=== PATIENT | male | born 1950 | race Caucasian/White ===

== ENCOUNTER 2023-05-22 17:22 | Inpatient (IN) ==
[2023-05-22 18:11] LABS: Basophils # (auto) 0.03 K/uL (0.00-0.20); Basophils % (auto) 0.5 %; Eosinophils # (auto) 0.05 K/uL (0.00-0.50); Eosinophils % (auto) 0.9 %; Hematocrit (blood only) 38.3 % (42.0-52.0); Hemoglobin 13.3 g/dl (14.0-18.0); Immature Granulocytes # (auto) 0.02 K/uL (0.01-0.20); Immature Granulocytes % (auto) 0.4 %; Lymphocytes # (auto) 0.88 K/uL (1.20-3.40); Lymphocytes % (auto) 15.7 %; Mean Corpuscular Hemoglobin 32.4 pg (25.0-34.0); Mean Corpuscular Hgb Conc 34.7 g/dL (32.0-36.0); Mean Corpuscular Volume 93.4 fL (80.0-100.0); Mean Platelet Volume 10.9 fL (9.4-12.4); Monocytes # (auto) 0.51 K/uL (0.11-0.59); Monocytes % (auto) 9.1 %; Neutrophils # (auto) 4.12 K/uL (1.40-6.50); Neutrophils % (auto) 73.4 %; Platelet Count 185 K/uL (130-400); RDW Coefficient of Variation 12.6 % (11.5-14.5); RDW Standard Deviation 43.3 fL (36.4-46.3); White Blood Count 5.61 K/ul (4.8-10.8)
--- NOTE | 2023-05-22 18:25 | Emergency Department Note ---
Impression & Plan Falls, Weakness, Hallucination, visual, Parkinson's disease, CVA (cerebral vascular accident) ED Provider Note Provider: Tacho Wolf MD DATE OF SERVICE: 05/22/2023 CHIEF COMPLAINT: Weakness and difficulty walking HISTORY OF PRESENT ILLNESS: Patient is a 73-year-old gentleman history of hy perlipidemia, hypertension, Parkinson disease presenting complaining of generalized weakness and difficulty with ambulating. States has had some falls recently and has been having ongoing issues with walking over the past month or 2. States over the last month or 2 is also been having some visual hallucinations of his dogs and animals. Resides at [facility]. Has had multiple falls over the past several weeks. Did fall getting off the train in [place] by his report on Saturday and hit his head but was able to get up and lose consciousness. Denies headache. Denies feeling warm or dizzy or having palpitations. Unable to clearly explain how all his falls happen. Evidently had 1 today at one of the group events at [facility] they sent here for evaluation. Denies hitting his head today. Denies significant pain in the upper extremities or the right leg. Reports a little bit of redness and warmth just proximal to the left knee on the thigh region. He is able to walk however. Denies chest pain, shortness of breath, abdominal pain, nausea or vomiting. States he is sleeping appropriately. States he has not talked with his doctor or the staff about issues until today. Family evidently brought him back from the train station on Saturday to [facility]. PAST MEDICAL HISTORY: As noted above MEDICATIONS: Reviewed home medications SOCIAL HISTORY: Resides at [facility] PHYSICAL EXAM: GENERAL: alert and oriented in no acute distress in wheelchair Head: normocephalic and atraumatic without visible or appreciable wound or swelling. EYES: No injection, discharge or icterus. NECK: Trachea midline. Supple no midline cervical tenderness ENT: Mucous membranes pink and moist. LUNGS: Airway patent. No retractions. Breath sounds clear with good air entry bilaterally. HEART: Regular rate and rhythm. No chest wall tenderness ABDOMEN: Soft and non-tender, without guarding or rebound. No bilateral flank tenderness. SKIN: Acyanotic, warm, dry, without rashes EXTREMITIES: Without swelling, tenderness or deformity. In particular no tenderness of the left thigh or redness on exam with Marcus nurse treating inspector assisting. NEUROLOGICAL: No focal deficits. No aphasia. No facial droop or slurred speech. Normal strength and tone in the extremities. Sensation to gross touch normal. EK beats per minute. Normal sinus rhythm. PVC noted. No acute ST segment elevation or depression with QTc 446 CONTINUOUS CARDIAC MONITORING: was ordered and showed a heart rate of 80s bpm in normal sinus rhythm GCS 15. 1 view chest x-ray by my interpretation: No evidence of pneumonia or pneumothorax. No cardiomegaly. No free air under the diaphragm. 2 view left femur x-ray per my interpretation: No evidence of fracture or dislocation noted. Patient's laboratory studies and imaging reviewed. Differential includes Infection, dehydration, metabolic abnormality, hypo/hyperglycemia, electrolyte disturbance, anemia, hypoxia, cardiac sources, intracerebral event, toxicologic, neurologic, as well as other pathologies. IMPRESSION/MEDICAL DECISION MAKING: Patient fell struck his head the other day ago. Not on anticoagulants. We will complete a head CT given his complaints and reports his hallucinations. Does not seem to have significant focal deficit does have unfortunate underlying history of Parkinson disease. The somewhat subacute to more chronic nature of his visual hallucinations that are fairly formed with the falls may unfortun ately be a sequelae of his underlying Parkinson's disease. No fevers or URI symptoms reported. Afebrile here. No significant stigmata of trauma on physical exam. Did obtain x-ray of the chest as well as the left thigh as he has a little bit of discomfort here. Is ambulatory. Basic blood work obtained. EKG without evidence of STEMI or acute ischemic changes. No significant leukocytosis and no severe anemia noted. No significant electrolyte abnormalities or signs of renal dysfunction on blood work. Negative COVID testing. Normal troponin and again EKG reassuring and I doubt this is primarily cardiac in nature. No significant focal neurological deficits that he does not appear meningitic and I doubt severe with [employer] infection. Seems a bit more nonfocal on exam and lower suspicion for acute CVA. TSH normal and negative COVID here. X-rays appear reassuring. CT of the head does show what appears to be an old lacunar infarct in the right basal ganglia with chronic small vessel disease. No acute infarct or hemorrhage is noted by the radiology report but again this old infarct. Discussed with the patient. He denies any history of known stroke. Does take a baby aspirin. Given that his symptoms have evolved over the past month or 2 the stroke may explain some of the increased weakness possibly hallucinations but again may also be overlapping with his Parkinson disease. Given this new finding however discussed with him staying for further observation evaluation by the hospitalist team and neurology and the patient was in agreement. Hospitalist contacted DIAGNOSIS: Weakness, falls, CVA, visual hallucinations DISPOSITION: Hospitalist will evaluate Patient was agreeable with this plan. Past Med/Surg History Social History Smoking Status: Unknown if ever smoked Preferred Language: Cuban Feels Safe at Home: Yes Allergies Allergies Allergy/AdvReac Type Severity Reaction Status Date / Time No Known Allergies Allergy Verified 05/22/23 22:09 Home Meds Home Medications Medication Instructions Recorded Confirmed aspirin 81 mg tablet,delayed 81 mg PO DAILY 05/22/23 05/22/23 release carbidopa 25 mg-levodopa 100 mg 1 tab PO QID 05/22/23 05/22/23 tablet cyanocobalamin (vitamin B-12) 1,000 mcg IM QAM 05/22/23 05/22/23 1,000 mcg/mL injection solution duloxetine 30 mg capsule,delayed 30 mg PO QAM 05/22/23 05/22/23 release meclizine 25 mg chewable tablet 25 mg PO BID PRN Dizziness 05/22/23 05/22/23 polyethylene glycol 3350 17 gram 17 g PO QAM 05/22/23 05/22/23 oral powder packet (Miralax) pravastatin 20 mg tablet 20 mg PO QPM 05/22/23 05/22/23 tamsulosin 0.4 mg capsule 0.4 mg PO BID 05/22/23 05/22/23 Results & Data (ED) Vital Signs Vital Signs - 24 hr 05/22/23 17:34 05/22/23 21:28 05/22/23 21:50 Temperature 36.2 C L Temperature Source Temporal Artery Scan Pulse Rate 89 82 82 Respiratory Rate 19 19 Respiratory Effort / Characteristics Non-Labored Spontaneous Respiratory Depth Normal Blood Pressure 132/78 168/101 H Blood Pressure Mean 96 123 Pulse Oximetry 98 98 Oxygen Delivery Method Room Air Room Air Sepsis Recent Fever Within 48 Hours No Sepsis New/Unexplained Change in Mental Status N/A Sepsis Action Taken by Nursing No Action Required 05/22/23 22:20 05/22/23 23:00 Temperature Temperature Source Pulse Rate 71 71 Respiratory Rate 14 24 Respiratory Effort / Characteristics Respiratory Depth Blood Pressure 164/94 H 151/94 H Blood Pressure Mean 117 113 Pulse Oximetry 99 98 Oxygen Delivery Method Room Air Sepsis Recent Fever Within 48 Hours Sepsis New/Unexplained Change in Mental Status Sepsis Action Taken by Nursing Laboratory Data 05/22/23 17:50 05/22/23 17:50 Lab Results 05/22/23 05/22/23 05/22/23 Range/Units 17:50 17:50 17:50 WBC 5.61 (4.8-10.8) K/ul RBC 4.10 L (4.70-6.10) M/uL Hgb 13.3 L (14.0-18.0) g/dl Hct 38.3 L (42.0-52.0) % MCV 93.4 (80.0-100.0) fL MCH 32.4 (25.0-34.0) pg MCHC 34.7 (32.0-36.0) g/dL RDW Std Deviation 43.3 (36.4-46.3) fL RDW Coeff of Maria Isabel 12.6 (11.5-14.5) % Plt Count 185 (130-400) K/uL MPV 10.9 (9.4-12.4) fL Immature Gran % (Auto) 0.4 % Neut % (Auto) 73.4 % Lymph % (Auto) 15.7 % [place] % (Auto) 9.1 % Eos % (Auto) 0.9 % Baso % (Auto) 0.5 % Neut # (Auto) 4.12 (1.40-6.50) K/uL Lymph # (Auto) 0.88 L (1.20-3.40) K/uL [place] # (Auto) 0.51 (0.11-0.59) K/uL Eos # (Auto) 0.05 (0.00-0.50) K/uL Baso # (Auto) 0.03 (0.00-0.20) K/uL Immature Gran # (Auto) 0.02 (0.01-0.20) K/uL PT 11.6 (9.0-12.0) Seconds INR 1.1 (0.9-1.1) Sodium 143 (136-145) mmol/L Potassium 4.1 (3.5-5.1) mmol/L Chloride 109 H (98-107) mmol/L Carbon Dioxide 30 (21-32) mmol/L Anion Gap 4 (3-11) BUN 23 (6-23) mg/dl Creatinine 1.03 (0.6-1.4) mg/dl Est Cr Clr Drug Dosing Not Reportable Est GFR ( Amer) 82.0 ml/min Est GFR (Non-Af Amer) 70.7 ml/min BUN/Creatinine Ratio 22.3 H (10-20) Glucose 109 H (70-99(Fasting)) mg/dl Calcium 9.4 (8.6-10.3) mg/dl Iron 60 (35-175) mcg/dl Transferrin 206 (200-360) mg/dl Ferritin 205.9 (8-388) ng/ml Total Bilirubin 0.7 (0.2-1.0) mg/dl AST 15 (13-39) U/L ALT 3 L (7-52) U/L Alkaline Phosphatase 80 (34-104) U/L Troponin I High Sens 4.5 (0-20) pg/ml Total Protein 7.2 (6.0-8.3) gm/dl Albumin 4.3 (3.4-5.0) gm/dl Globulin 2.9 (2.5-4.0) gm/dl Albumin/Globulin Ratio 1.5 (0.9-2) Vitamin B12 (180-914) pg/ml Folate (>5.38) ng/ml TSH 1.705 (0.300-4.500) uIu/ml SARS-CoV-2, RNA, NAAT (NEGATIVE) 05/22/23 05/22/23 Range/Units 17:50 17:54 WBC (4.8-10.8) K/ul RBC (4.70-6.10) M/uL Hgb (14.0-18.0) g/dl Hct (42.0-52.0) % MCV (80.0-100.0) fL MCH (25.0-34.0) pg MCHC (32.0-36.0) g/dL RDW Std Deviation (36.4-46.3) fL RDW Coeff of Maria Isabel (11.5-14.5) % Plt Count (130-400) K/uL MPV (9.4-12.4) fL Immature Gran % (Auto) % Neut % (Auto) % Lymph % (Auto) % [place] % (Auto) % Eos % (Auto) % Baso % (Auto) % Neut # (Auto) (1.40-6.50) K/uL Lymph # (Auto) (1.20-3.40) K/uL [place] # (Auto) (0.11-0.59) K/uL Eos # (Auto) (0.00-0.50) K/uL Baso # (Auto) (0.00-0.20) K/uL Immature Gran # (Auto) (0.01-0.20) K/uL PT (9.0-12.0) Seconds INR (0.9-1.1) Sodium (136-145) mmol/L Potassium (3.5-5.1) mmol/L Chloride (98-107) mmol/L Carbon Dioxide (21-32) mmol/L Anion Gap (3-11) BUN (6-23) mg/dl Creatinine (0.6-1.4) mg/dl Est Cr Clr Drug Dosing Est GFR ( Amer) ml/min Est GFR (Non-Af Amer) ml/min BUN/Creatinine Ratio (10-20) Glucose (70-99(Fasting)) mg/dl Calcium (8.6-10.3) mg/dl Iron (35-175) mcg/dl Transferrin (200-360) mg/dl Ferritin (8-388) ng/ml Total Bilirubin (0.2-1.0) mg/dl AST (13-39) U/L ALT (7-52) U/L Alkaline Phosphatase (34-104) U/L Troponin I High Sens (0-20) pg/ml Total Protein (6.0-8.3) gm/dl Albumin (3.4-5.0) gm/dl Globulin (2.5-4.0) gm/dl Albumin/Globulin Ratio (0.9-2) Vitamin B12 799 (180-914) pg/ml Folate 15.74 (>5.38) ng/ml TSH (0.300-4.500) uIu/ml SARS-CoV-2, RNA, NAAT NEGATIVE (NEGATIVE) Administered Medications Sodium Chloride (1/2 Nss) 1,000 mls @ 60 mls/hr IV .[id number] ONE Stop: 05/23/23 14:24 Last Admin: 05/22/23 22:20 Dose: 60 mls/hr Documented By: ADAL Discontinued Medications Miscellaneous Information (Patient's Allergy Info Needs Entered) 1 each N/A Q30M SOY Stop: 06/21/23 21:59 Last Admin: 05/22/23 22:00 Dose: Not Given Documented By: ADAL Imaging Data Radiologist's Impression: Head CT 05/22/23 17:38 Exam(s): CT HEAD Without Contrast EXAM: CT Head Without Intravenous Contrast CLINICAL HISTORY: Reason for exam: fall/weakness. TECHNIQUE: Axial computed tomography images of the head/brain without intravenous contrast. CTDI is 39.1 mGy and DLP is 625.8 mGy-cm. Automated exposure control was utilized for the study. A dose lowering technique was utilized adhering to the principles of ALARA. COMPARISON: No relevant prior studies available. FINDINGS: Brain: There is a 7 mm old lacunar infarct in the right basal ganglia. There is mild atrophy and periventricular white matter low density consistent with chronic small vessel disease and/or senescent changes. No acute large vessel infarct or intracranial hemorrhage is seen. Ventricles: Unremarkable. No ventriculomegaly. Bones/joints: Unremarkable. No acute fracture. Soft tissues: Unremarkable. Sinuses: Unremarkable as visualized. No acute sinusitis. Mastoid air cells: Unremarkable as visualized. No mastoid effusion. IMPRESSION: There is a 7 mm old lacunar infarct in the right basal ganglia. There is mild atrophy and periventricular white matter low density consistent with chronic small vessel disease and/or senescent changes. No acute large vessel infarct or intracranial hemorrhage is seen. Electronically signed by: Tacho Rodriguez MD 05/22/23 19:57 PM Femur X-Ray 05/22/23 18:38 LEFT FEMUR 3 VIEWS CLINICAL HISTORY: Fall with left leg pain. FINDINGS: AP, frog-leg, and crosstable lateral views of the left femur are obtained. No prior studies are available for comparison at the time of dictation. The skeletal structures are osteopenic. There is no radiographic evidence of left femoral fracture. The visualized left hemipelvis appears intact. The hip and knee joints appear maintained. The overlying soft tissues are within normal limits. There is atherosclerotic calcification of the femoral artery. IMPRESSION: There is no radiographic evidence of left femoral fracture. Electronically signed by: Jeffrey Hill M.D. 05/22/2023 9:42 PM Discharge Plan Visit Data Chief Complaint: Weakness Stated Complaint: DIFFICULTY AMBULATING ED Provider: Tacho Wolf Discharge Problem: Falls, Weakness, Hallucination, visual, Parkinson's disease, CVA (cerebral vascular accident) Patient Disposition: Being Evaluated by Hospitalist Discharge Instructions Interventions: ED Discharge Assessment Last Done: 05/23/23 00:48
[2023-05-22 18:26] LABS: Alanine Aminotransferase 3 U/L (7-52); Albumin Globulin Ratio 1.5 (0.9-2); Albumin Level 4.3 gm/dl (3.4-5.0); Alkaline Phosphatase 80 U/L (34-104); Anion Gap 4 (3-11); Aspartate Aminotransferase 15 U/L (13-39); BUN Creatinine Ratio 22.3 (10-20); Bilirubin,Total 0.7 mg/dl (0.2-1.0); Blood Urea Nitrogen 23 mg/dl (6-23); Calcium 9.4 mg/dl (8.6-10.3); Carbon Dioxide 30 mmol/L (21-32); Chloride 109 mmol/L (98-107); Est GFR (Non-African American) 70.7 ml/min; Globulin 2.9 gm/dl (2.5-4.0); Glucose 109 mg/dl (70-99(Fasting)); Potassium 4.1 mmol/L (3.5-5.1); Sodium 143 mmol/L (136-145); Total Protein 7.2 gm/dl (6.0-8.3)
[2023-05-22 18:31] LABS: Troponin I High Sensitivity 4.5 pg/ml (0-20)
[2023-05-22 18:35] LABS: INR 1.1 (0.9-1.1); Prothrombin Time 11.6 Seconds (9.0-12.0)
[2023-05-22 18:41] LABS: Thyroid Stimulating Hormone 1.705 uIu/ml (0.300-4.500)
--- NOTE | 2023-05-22 19:58 | CT Scan Report ---
Exam(s): CT HEAD Without Contrast EXAM: CT Head Without Intravenous Contrast CLINICAL HISTORY: Reason for exam: fall/weakness. TECHNIQUE: Axial computed tomography images of the head/brain without intravenous contrast. CTDI is 39.1 mGy and DLP is 625.8 mGy-cm. Automated exposure control was utilized for the study. A dose lowering technique was utilized adhering to the principles of ALARA. COMPARISON: No relevant prior studies available. FINDINGS: Brain: There is a 7 mm old lacunar infarct in the right basal ganglia. There is mild atrophy and periventricular white matter low density consistent with chronic small vessel disease and/or senescent changes. No acute large vessel infarct or intracranial hemorrhage is seen. Ventricles: Unremarkable. No ventriculomegaly. Bones/joints: Unremarkable. No acute fracture. Soft tissues: Unremarkable. Sinuses: Unremarkable as visualized. No acute sinusitis. Mastoid air cells: Unremarkable as visualized. No mastoid effusion. IMPRESSION: There is a 7 mm old lacunar infarct in the right basal ganglia. There is mild atrophy and periventricular white matter low density consistent with chronic small vessel disease and/or senescent changes. No acute large vessel infarct or intracranial hemorrhage is seen. Electronically signed by: Tacho Rodriguez MD 05/22/23 19:57 PM
[2023-05-22] MEDS ORDERED: SODIUM CHLORIDE 0.45 % 1,000 ML IV ONE (21:45)
--- NOTE | 2023-05-22 21:45 | XRay Report ---
LEFT FEMUR 3 VIEWS CLINICAL HISTORY: Fall with left leg pain. FINDINGS: AP, frog-leg, and crosstable lateral views of the left femur are obtained. No prior studies are available for comparison at the time of dictation. The skeletal structures are osteopenic. There is no radiographic evidence of left femoral fracture. The visualized left hemipelvis appears intact. The hip and knee joints appear maintained. The overlying soft tissues are within normal limits. Ther e is atherosclerotic calcification of the femoral artery. IMPRESSION: There is no radiographic evidence of left femoral fracture. Electronically signed by: Jeffrey Hill M.D. 05/22/2023 9:42 PM
[2023-05-22] MEDS ORDERED: Patient's ALLERGY Info needs ENTERED SCH (22:00)
--- NOTE | 2023-05-22 23:08 | History & Physical Report ---
Date of Service May 22, 2023 Assessment & Plan (1) Ambulatory dysfunction: Plan: Rule out new CVA hx CVA on previous imaging (Patient/family unaware of previous diagnosis.) New onset anemia Hematochezia on FOBT hx colonic polyps/diverticulosis/hemorrhoids from 2022 colonoscopy Patient without abdominal pain complaints. hypertension, slightly elevated hyperlipidemia, on statin Rx hx Parkinson's disease with cognitive impairment sarcoidosis BPH, on Flomax past tobacco abuse Medical telemetry Neurochecks MRI/MRA brain Additional stroke work-up pending MRI results Hold aspirin for now given LGIB Inpatient GI consult if with progression Anemia work-up, transfuse PRBC if hemoglobin less than 8 and or for symptomatic anemia PT OT eval DVT prophylaxis. SCDs RE LGIB Full code as per son/POA, Mr. Cresencio Alicea. He requests updates from providers through [id number]. Text document was generated using [employer] voice recognition software. It may contain grammatical or spelling errors. Kindly contact undersigned for clarification of any documentation item in question. History of Present Illness Chief Complaint: Weakness, difficulty in ambulation as per records, hallucinations. Primary Care Provider: [facility] History obtained from patient, family, and records. Limited history from patient secondary to confusion. Medical history significant for CVA as per records, hypertension, hyperlipidemia, Parkinson's disease, cognitive impairment, sarcoidosis, BPH, colonic polyps/diverticulosis/hemorrhoids, past tobacco abuse. Patient noted to have generalized weakness and difficulty ambulation at [facility]. Patient with visual hallucinations as per son. Patient denies headache, chest pain, abdominal pain, black/bloody stools. Patient brought to the ER for evaluation. Medical History as above Surgical History : Cataract surgeries, right foot surgery, tonsillectomy/adenoidectomy Family History : DM, dementia Personal/Social history : Past tobacco abuse, no EtOH intake, [facility] resident Allergies Allergy/AdvReac Type Severity Reaction Status Date / Time No Known Allergies Allergy Verified 05/22/23 22:09 Home Medications Medication Instructions Recorded Confirmed Type aspirin 81 mg tablet,delayed 81 mg PO DAILY 05/22/23 05/22/23 History release carbidopa 25 mg-levodopa 100 mg 1 tab PO QID 05/22/23 05/22/23 History tablet cyanocobalamin (vitamin B-12) 1,000 mcg IM QAM 05/22/23 05/22/23 History 1,000 mcg/mL injection solution duloxetine 30 mg capsule,delayed 30 mg PO QAM 05/22/23 05/22/23 History release meclizine 25 mg chewable tablet 25 mg PO BID PRN Dizziness 05/22/23 05/22/23 History polyethylene glycol 3350 17 gram 17 g PO QAM 05/22/23 05/22/23 History oral powder packet (Miralax) pravastatin 20 mg tablet 20 mg PO QPM 05/22/23 05/22/23 History tamsulosin 0.4 mg capsule 0.4 mg PO BID 05/22/23 05/22/23 History Past Med/Surg History Social History Smoking Status: Former smoker Hx Alcohol Use: No Hx Substance Use: No Preferred Language: Bulgarian Communication Ability: Effective Digital Marketing Associate Required: No Beliefs That Will Affect Care: None Current Living Situation: Other Current Living Situation Comment: Independent Living Feels Safe at Home: Yes Safety Concerns: Feels Safe At This Time Assistive Devices: Cane and Walker Review of Systems Review of Systems: Could not be reliably obtained secondary to cognitive impairment Physical Exam Physical Exam: GENERAL: Comfortable, masklike facies, slightly hard of hearing, no respiratory distress SKIN: Pallor, warm HEENT: Pale palpebral conjunctivae, no ptosis, dry buccal mucosa NECK : Supple, no tenderness CHEST : CTA, no tenderness HEART : RRR, no obvious murmurs ABDOMEN: Some distention, nontender RECTAL : Intact sphincter, blood tinged stool (FOBT positive) EXTREMITIES : No LE swelling/tenderness, no other conspicuous deformities noted NEUROLOGIC : Oriented to place and day, no facial asymmetry, slightly hard of hearing, intention tremors, gait and stance not assessed Results & Data Results & Data Vital Signs (Past 12 Hours) Vital Signs Temp Pulse Resp BP Pulse Ox O2 Del Method 05/22/23 22:20 71 14 164/94 H 99 Room Air 05/22/23 21:50 82 19 168/101 H 98 Room Air 05/22/23 21:28 82 05/22/23 17:34 36.2 C L 89 19 132/78 98 Room Air Laboratory Results Laboratory Results WBC 5.61 K/ul (4.8-10.8) 05/22/23 17:50 RBC 4.10 M/uL (4.70-6.10) L 05/22/23 17:50 Hgb 13.3 g/dl (14.0-18.0) L 05/22/23 17:50 Hct 38.3 % (42.0-52.0) L 05/22/23 17:50 MCV 93.4 fL (80.0-100.0) 05/22/23 17:50 MCH 32.4 pg (25.0-34.0) 05/22/23 17:50 MCHC 34.7 g/dL (32.0-36.0) 05/22/23 17:50 RDW Std Deviation 43.3 fL (36.4-46.3) 05/22/23 17:50 RDW Coeff of Maria Isabel 12.6 % (11.5-14.5) 05/22/23 17:50 Plt Count 185 K/uL (130-400) 05/22/23 17:50 MPV 10.9 fL (9.4-12.4) 05/22/23 17:50 Immature Gran % (Auto) 0.4 % 05/22/23 17:50 Neut % (Auto) 73.4 % 05/22/23 17:50 Lymph % (Auto) 15.7 % 05/22/23 17:50 Cecil % (Auto) 9.1 % 05/22/23 17:50 Eos % (Auto) 0.9 % 05/22/23 17:50 Baso % (Auto) 0.5 % 05/22/23 17:50 Neut # (Auto) 4.12 K/uL (1.40-6.50) 05/22/23 17:50 Lymph # (Auto) 0.88 K/uL (1.20-3.40) L 05/22/23 17:50 Cecil # (Auto) 0.51 K/uL (0.11-0.59) 05/22/23 17:50 Eos # (Auto) 0.05 K/uL (0.00-0.50) 05/22/23 17:50 Baso # (Auto) 0.03 K/uL (0.00-0.20) 05/22/23 17:50 Immature Gran # (Auto) 0.02 K/uL (0.01-0.20) 05/22/23 17:50 PT 11.6 Seconds (9.0-12.0) 05/22/23 17:50 INR 1.1 (0.9-1.1) 05/22/23 17:50 Sodium 143 mmol/L (136-145) 05/22/23 17:50 Potassium 4.1 mmol/L (3.5-5.1) 05/22/23 17:50 Chloride 109 mmol/L (98-107) H 05/22/23 17:50 Carbon Dioxide 30 mmol/L (21-32) 05/22/23 17:50 Anion Gap 4 (3-11) 05/22/23 17:50 BUN 23 mg/dl (6-23) 05/22/23 17:50 Creatinine 1.03 mg/dl (0.6-1.4) 05/22/23 17:50 Est Cr Clr Drug Dosing Not Reportable 05/22/23 17:50 Est GFR ( Amer) 82.0 ml/min 05/22/23 17:50 Est GFR (Non-Af Amer) 70.7 ml/min 05/22/23 17:50 BUN/Creatinine Ratio 22.3 (10-20) H 05/22/23 17:50 Glucose 109 mg/dl (70-99(Fasting)) H 05/22/23 17:50 Calcium 9.4 mg/dl (8.6-10.3) 05/22/23 17:50 Total Bilirubin 0.7 mg/dl (0.2-1.0) 05/22/23 17:50 AST 15 U/L (13-39) 05/22/23 17:50 ALT 3 U/L (7-52) L 05/22/23 17:50 Alkaline Phosphatase 80 U/L (34-104) 05/22/23 17:50 Troponin I High Sens 4.5 pg/ml (0-20) 05/22/23 17:50 Total Protein 7.2 gm/dl (6.0-8.3) 05/22/23 17:50 Albumin 4.3 gm/dl (3.4-5.0) 05/22/23 17:50 Globulin 2.9 gm/dl (2.5-4.0) 05/22/23 17:50 Albumin/Globulin Ratio 1.5 (0.9-2) 05/22/23 17:50 TSH 1.705 uIu/ml (0.300-4.500) 05/22/23 17:50 SARS-CoV-2, RNA, NAAT NEGATIVE (NEGATIVE) 05/22/23 17:[address] 05/22/23 17:38 Exam(s): CT HEAD Without Contrast EXAM: CT Head Without Intravenous Contrast CLINICAL HISTORY: Reason for exam: fall/weakness. TECHNIQUE: Axial computed tomography images of the head/brain without intravenous contrast. CTDI is 39.1 mGy and DLP is 625.8 mGy-cm. Automated exposure control was utilized for the study. A dose lowering technique was utilized adhering to the principles of ALARA. COMPARISON: No relevant prior studies available. FINDINGS: Brain: There is a 7 mm old lacunar infarct in the right basal ganglia. There is mild atrophy and periventricular white matter low density consistent with chronic small vessel disease and/or senescent changes. No acute large vessel infarct or intracranial hemorrhage is seen. Ventricles: Unremarkable. No ventriculomegaly. Bones/joints: Unremarkable. No acute fracture. Soft tissues: Unremarkable. Sinuses: Unremarkable as visualized. No acute sinusitis. Mastoid air cells: Unremarkable as visualized. No mastoid effusion. IMPRESSION: There is a 7 mm old lacunar infarct in the right basal ganglia. There is mild atrophy and periventricular white matter low density consistent with chronic small vessel disease and/or senescent changes. No acute large vessel infarct or intracranial hemorrhage is seen. Electronically signed by: Tacho Rodriguez MD 05/22/23 19:57 PM Femur X-Ray 05/22/23 18:38 LEFT FEMUR 3 VIEWS CLINICAL HISTORY: Fall with left leg pain. FINDINGS: AP, frog-leg, and crosstable lateral views of the left femur are obtained. No prior studies are available for comparison at the time of di ctation. The skeletal structures are osteopenic. There is no radiographic evidence of left femoral fracture. The visualized left hemipelvis appears intact. The hip and knee joints appear maintained. The overlying soft tissues are within normal limits. There is atherosclerotic calcification of the femoral artery. IMPRESSION: There is no radiographic evidence of left femoral fracture. Electronically signed by: Jeffrey Hill M.D. 05/22/2023 9:42 PM Diagnostic Findings EKG as per my interpretation : Rate 85, NSR, normal axis, septal infarct, T wave abnormalities lateral leads
[2023-05-22 23:38] LABS: Iron 60 mcg/dl (35-175); Transferrin 206 mg/dl (200-360)
[2023-05-22 23:49] LABS: Hematocrit (blood only) 37.2 % (42.0-52.0); Hemoglobin 12.6 g/dl (14.0-18.0); Reticulocyte % 0.8 % (0.5-2.0); Reticulocytes # 0.03 10^6/uL (0.02-0.10)
[2023-05-22 23:58] LABS: Ferritin 205.9 ng/ml (8-388)
[2023-05-23 00:48] LABS: Folate (Folic Acid),Ser orPlas 15.74 ng/ml (>5.38)
[2023-05-23] MEDS ORDERED: ACETAMINOPHEN 325 MG TAB PO PRN (00:49)
[2023-05-23] MEDS ORDERED: PHARMACIST DISCHARGE MED REC CONSULT PRN (00:49)
[2023-05-23 01:16] LABS: Appearance Urine Clear (Clear); Bilirubin Urine Negative (Negative); Blood Urine Negative (Negative); Color Urine Yellow; Glucose Urine UA Negative (Negative); Ketones Urine Negative (Negative); Leukocyte Esterase Urine Negative (Negative); Nitrite Urine Negative (Negative); Protein Urine Negative (Negative); Specific Gravity Urine 1.017 (1.000-1.030); Urobilinogen Urine Negative (Negative); pH Urine 7.5 (4.5-7.5)
[2023-05-23 04:57] LABS: Basophils # (auto) 0.04 K/uL (0.00-0.20); Basophils % (auto) 0.8 %; Eosinophils # (auto) 0.14 K/uL (0.00-0.50); Eosinophils % (auto) 2.8 %; Hemoglobin 13.5 g/dl (14.0-18.0); Immature Granulocytes # (auto) 0.01 K/uL (0.01-0.20); Immature Granulocytes % (auto) 0.2 %; Lymphocytes # (auto) 1.28 K/uL (1.20-3.40); Lymphocytes % (auto) 25.9 %; Mean Corpuscular Hemoglobin 32.4 pg (25.0-34.0); Mean Corpuscular Hgb Conc 34.6 g/dL (32.0-36.0); Mean Corpuscular Volume 93.5 fL (80.0-100.0); Mean Platelet Volume 10.8 fL (9.4-12.4); Monocytes # (auto) 0.55 K/uL (0.11-0.59); Monocytes % (auto) 11.1 %; Neutrophils # (auto) 2.92 K/uL (1.40-6.50); Neutrophils % (auto) 59.2 %; Platelet Count 158 K/uL (130-400); RDW Coefficient of Variation 12.5 % (11.5-14.5); RDW Standard Deviation 43.2 fL (36.4-46.3); Red Blood Count 4.17 M/uL (4.70-6.10); White Blood Count 4.94 K/ul (4.8-10.8)
[2023-05-23 05:09] LABS: BUN Creatinine Ratio 21.8 (10-20); Calcium 8.8 mg/dl (8.6-10.3); Chol HDL Ratio 2.8 (0-5); Creatinine Clr Calc Pharmacy 78.5 ml/min; Est GFR (African American) 102.3 ml/min; Est GFR (Non-African American) 88.3 ml/min; Potassium 3.6 mmol/L (3.5-5.1)
--- NOTE | 2023-05-23 07:15 | Magnetic Resonance Report ---
Exam(s): MRI HEAD Without Contrast EXAM: MR Head Without Intravenous Contrast CLINICAL HISTORY: Reason for exam: weakness. TECHNIQUE: Magnetic resonance images of the head/brain without intravenous contrast in multiple planes. COMPARISON: CT from May 22, 2023 FINDINGS: Brain: Mild cerebral atrophy and periventricular white matter T2 hyperintensities consistent with chronic small vessel disease and/or senescent changes. There are several old lacunar infarcts in the basal ganglia measuring up to 6 mm on the right. No areas of diffusion restriction are seen to indicate acute stroke. No hemorrhage. Ventricles: Mildly prominent. No mass or hemorrhage. Bones/joints: Unremarkable. Sinuses: Unremarkable as visualized. No acute sinusitis. Mastoid air cells: Unremarkable as visualized. No mastoid effusion. Orbits: Unremarkable as visualized. IMPRESSION: Mild cerebral atrophy and periventricular white matter T2 hyperintensities consistent with chronic small vessel disease and/or senescent changes. There are several old lacunar infarcts in the basal ganglia measuring up to 6 mm on the right. No areas of diffusion restriction are seen to indicate acute stroke. Electronically signed by: Tacho Rodriguez MD 05/23/23 02:31 AM
--- NOTE | 2023-05-23 07:15 | Magnetic Resonance Report ---
Exam(s): MRA HEAD Without Contrast EXAM: MR Angiography Head Without Intravenous Contrast CLINICAL HISTORY: Reason for exam: weakness. TECHNIQUE: Magnetic resonance angiography images of the head without intravenous contrast. COMPARISON: CT head from May 22, 2023 FINDINGS: Right internal carotid artery: 20% stenosis of the distal right internal carotid artery. No aneurysm. Right anterior cerebral artery: Unremarkable. No occlusion or significant stenosis. No aneurysm. Right middle cerebral artery: Unremarkable. No occlusion or significant stenosis. No aneurysm. Right posterior cerebral artery: Normally anatomic variant of origin of the right posterior cerebral artery from the anterior circulation. The P1 segment is absent. Right vertebral artery: The distal right vertebral artery is small and terminates into the PICA. This is a normal variant. Left internal carotid artery: 40-50% stenosis of the cavernous portion of the distal left internal carotid artery. No aneurysm. Left anterior cerebral artery: Unremarkable. No occlusion or significant stenosis. No aneurysm. Left middle cerebral artery: Unremarkable. No occlusion or significant stenosis. No aneurysm. Left posterior cerebral artery: Unremarkable. No occlusion or significant stenosis. No aneurysm. Left vertebral artery: Unremarkable as visualized. Basilar artery: Unremarkable. No occlusion or significant stenosis. No aneurysm. IMPRESSION: No acute findings in the arteries of the head/brain. Electronically signed by: Tacho Rodriguez MD 05/23/23 02:20 AM
--- NOTE | 2023-05-23 07:26 | XRay Report ---
SINGLE VIEW CHEST CLINICAL HISTORY: Generalized weakness. Fall. FINDINGS: 2 AP, portable, upright chest radiographs are obtained. No prior studies are available for comparison at the time of dictation. The cardiomediastinal silhouette is unremarkable noting atherosc lerotic calcification of the thoracic aorta. Nonspecific interstitial thickening is likely chronic. N o airspace consolidation or large pleural effusion is identified. No pneumothorax is seen. The skelet al structures are osteopenic. The bony thorax is grossly intact. IMPRESSION: No acute cardiopulmonary abnormality. ACT 112: Negative or not required by law. Electronically signed by: Jeffrey Hill M.D. 05/23/2023 7:25 AM
[2023-05-23] MEDS ORDERED: PNEUMOCOCCAL VACCINE (PCV20) 20-VAL CONJ-DIP CRM/PF 0.5 ML SYR IM ONE (09:00)
[2023-05-23 09:24] LABS: Estimated Average Glucose 114 mg/dl; Hemoglobin A1C 5.6 % (4.5-5.6)
[2023-05-23] MEDS: CYANOCOBALAMIN 1000 MCG/ML VIAL IM SCH (10:36)
[2023-05-23] MEDS: DULoxetine HCL 30 MG CAP PO SCH (10:36)
[2023-05-23] MEDS: TAMSULOSIN HCL 0.4 MG CAP PO SCH ×2 (10:36→22:00)
[2023-05-23] MEDS: CARBIDOPA/LEVODOPA 25/100MG TAB PO SCH ×4 (10:36→22:00)
--- NOTE | 2023-05-23 12:01 | Electrocardiogram Report ---
Test Reason : Blood Pressure : / mmHG Vent. Rate : 084 BPM Atrial Rate : 084 BPM P-R Int : 146 ms QRS Dur : 072 ms QT Int : 378 ms P-R-T Axes : 062 035 061 degrees QTc Int : 446 ms Normal sinus rhythm with PVCs Abnormal ECG No previous ECGs available Confirmed by Yasmani Wei ([id number]) on 05/23/2023 12:00:46 PM Referred By: Candi Salcedo Confirmed By:Jose Wei
--- NOTE | 2023-05-23 15:47 | Hospitalist Progress Note ---
Date of Service May 23, 2023 Assessment & Plan (1) Ambulatory dysfunction: Plan: Ambulatory Dysfunction Stroke-like symptoms Rule out new CVA hx CVA on previous imaging-(Patient/family unaware of previous diagnosis.) head CT, brain MRI and MRA with no acute stroke, previous stroke in basal ganglia noted however Continue home pravastatin, holding home aspirin in setting of possible GI bleed PT/OT- recommending return to [facility] PCP follow up after d/c hx Parkinson's disease with cognitive impairment Acute Delirium Pt confused later during the day- states he feels like he is being held against his will Per nursing threatening to call the police Given a dose of zyprexa 5mg IM Continue home carbidopa-levodopa New onset anemia Hematochezia on FOBT Hgb currently stable at 13 hx colonic polyps/diverticulosis/hemorrhoids from 2022 colonoscopy Patient without abdominal pain complaints. Holding home aspirin Continue to monitor hgb HTN BP currently controlled HLD Continue home pravastatin as noted above Sarcoidosis Stable BPH on Flomax Diet: HH DVT prophylaxis: SCDs RE LGIB Full code as per son/POA, Mr. Cresencio Alicea. Dispo: return to [facility] Admission and Anticipated Discharge Date Admission Date: May 22, 2023 Subjective Pt seen multiple times during the day. Was calm and collected in the AM, discussed that he was not ready to be discharged, felt like he needed another day. Later advised by nursing that pt was confused, pulling out his IV. Per son present in the room, he owns. Son recommending that pt remain overnight as well. Review of Systems Review of Systems: All systems reviewed & are unremarkable except as noted in Subjective Physical Exam Physical Exam: General: Alert, oriented in the AM. No acute distress Skin: No noted rashes or bruises Psych: Appropriate mood and affect Neuro: difficulty with movements HEENT: NC/AT CV: RRR, Normal s1, s2. No murmurs appreciated Resp: Breath sounds clear bilaterally, no increased effort of breathing. Abdomen: Soft, nontender, nondistended. Extremities: No edema in lower extremities bilaterally. Results & Data Results & Data Vital Signs (Past 12 Hours) Vital Signs Temp Pulse Pulse Resp BP BP Pulse Ox 05/23/23 15:33 36.4 C L 86 18 138/81 98 05/23/23 15:00 88 05/23/23 11:41 36.3 C L 79 18 131/80 99 05/23/23 08:00 68 05/23/23 07:31 36.4 C L 77 20 151/80 H 98 05/23/23 05:44 36.3 C L 18 142/84 H 98 O2 Del Method 05/23/23 15:33 Room Air 05/23/23 15:00 05/23/23 11:41 Room Air 05/23/23 08:00 05/23/23 07:31 Room Air 05/23/23 05:44 Room Air
[2023-05-23] MEDS ORDERED: OLANZapine 10 MG/2.1 ML SDV IM STA (16:17)
[2023-05-23] MEDS: PRAVASTATIN SOD 20 MG TAB PO SCH (22:01)
[2023-05-24 05:03] LABS: Alanine Aminotransferase < 3 U/L (7-52); Albumin Globulin Ratio 1.4 (0.9-2); Albumin Level 3.9 gm/dl (3.4-5.0); Alkaline Phosphatase 72 U/L (34-104); Anion Gap 4 (3-11); Aspartate Aminotransferase 19 U/L (13-39); BUN Creatinine Ratio 19.1 (10-20); Bilirubin,Total 1.2 mg/dl (0.2-1.0); Blood Urea Nitrogen 17 mg/dl (6-23); Calcium 9.1 mg/dl (8.6-10.3); Carbon Dioxide 32 mmol/L (21-32); Chloride 106 mmol/L (98-107); Creatinine Clr Calc Pharmacy 69.4 ml/min; Est GFR (African American) 96.9 ml/min; Est GFR (Non-African American) 83.6 ml/min; Globulin 2.7 gm/dl (2.5-4.0); Glucose 90 mg/dl (70-99(Fasting)); Magnesium 2.4 mg/dl (1.7-2.4); Phosphorus 3.5 mg/dl (2.5-4.9); Potassium 3.6 mmol/L (3.5-5.1); Sodium 142 mmol/L (136-145); Total Protein 6.6 gm/dl (6.0-8.3)
[2023-05-24 05:05] LABS: Basophils # (auto) 0.04 K/uL (0.00-0.20); Basophils % (auto) 0.8 %; Eosinophils # (auto) 0.14 K/uL (0.00-0.50); Eosinophils % (auto) 2.9 %; Hematocrit (blood only) 39.2 % (42.0-52.0); Hemoglobin 13.3 g/dl (14.0-18.0); Immature Granulocytes # (auto) 0.01 K/uL (0.01-0.20); Immature Granulocytes % (auto) 0.2 %; Lymphocytes # (auto) 1.37 K/uL (1.20-3.40); Lymphocytes % (auto) 28.7 %; Mean Corpuscular Hgb Conc 33.9 g/dL (32.0-36.0); Mean Corpuscular Volume 94.2 fL (80.0-100.0); Mean Platelet Volume 10.9 fL (9.4-12.4); Monocytes # (auto) 0.51 K/uL (0.11-0.59); Monocytes % (auto) 10.7 %; Neutrophils # (auto) 2.71 K/uL (1.40-6.50); Neutrophils % (auto) 56.7 %; Platelet Count 164 K/uL (130-400); RDW Coefficient of Variation 12.6 % (11.5-14.5); RDW Standard Deviation 43.8 fL (36.4-46.3); Red Blood Count 4.16 M/uL (4.70-6.10); White Blood Count 4.78 K/ul (4.8-10.8)
[2023-05-24] MEDS: DULoxetine HCL 30 MG CAP PO SCH (09:41)
[2023-05-24] MEDS: CARBIDOPA/LEVODOPA 25/100MG TAB PO SCH ×4 (09:41→20:28)
[2023-05-24] MEDS: TAMSULOSIN HCL 0.4 MG CAP PO SCH ×2 (09:41→20:28)
[2023-05-24] MEDS: CYANOCOBALAMIN 1000 MCG/ML VIAL IM SCH (09:42)
--- NOTE | 2023-05-24 18:38 | Hospitalist Progress Note ---
Date of Service May 24, 2023 Assessment & Plan (1) Ambulatory dysfunction: Plan: Ambulatory Dysfunction Stroke-like symptoms Rule out new CVA hx CVA on previous imaging-(Patient/family unaware of previous diagnosis.) head CT, brain MRI and MRA with no acute stroke, previous stroke in basal ganglia noted however Continue home pravastatin, holding home aspirin in setting of possible GI bleed PT/OT- recommending return to [facility] PCP follow up after d/c hx Parkinson's disease with cognitive impairment Acute Delirium Pt confused the day prior- states he feels like he is being held against his will Per nursing threatening to call the police Received a one time dose of zyprexa 5mg IM on 05/23 Continue home carbidopa-levodopa New onset anemia Hematochezia on FOBT Hgb currently stable at 13 hx colonic polyps/diverticulosis/hemorrhoids from 2022 colonoscopy Patient without abdominal pain complaints. Holding home aspirin Continue to monitor hgb HTN BP currently controlled HLD Continue home pravastatin as noted above Sarcoidosis Stable BPH on Flomax Diet: HH DVT prophylaxis: SCDs RE LGIB Full code as per son/POA, Mr. Cresencio Alicea. Dispo: return to [facility] Admission and Anticipated Discharge Date Admission Date: May 22, 2023 Subjective Pt seen in the AM. AAOx3 with no signs of confusion at that time. Had received IM Zyprexa the night before. Denied acute concerns. Review of Systems Review of Systems: All systems reviewed & are unremarkable except as noted in Subjective Physical Exam Physical Exam: General: Alert, orientedx3. No acute distress Skin: No noted rashes or bruises Psych: Appropriate mood and affect Neuro: difficulty with movements HEENT: NC/AT CV: RRR, Normal s1, s2. No murmurs appreciated Resp: Breath sounds clear bilaterally, no increased effort of breathing. Abdomen: Soft, nontender, nondistended. Extremities: No edema in lower extremities bilaterally. Results & Data Results & Data Vital Signs (Past 12 Hours) Vital Signs Temp Pulse Pulse Resp BP Pulse Ox O2 Del Method 05/24/23 16:47 69 05/24/23 16:45 95 H 05/24/23 15:54 36.4 C L 77 18 110/70 98 Room Air 05/24/23 12:08 36.6 C 65 18 114/72 96 Room Air 05/24/23 11:30 Room Air 05/24/23 08:20 36.6 C 75 16 133/83 99 Room Air
[2023-05-24] MEDS: PRAVASTATIN SOD 20 MG TAB PO SCH (20:28)
[2023-05-25 05:25] LABS: Basophils # (auto) 0.02 K/uL (0.00-0.20); Basophils % (auto) 0.3 %; Eosinophils # (auto) 0.21 K/uL (0.00-0.50); Eosinophils % (auto) 3.1 %; Hematocrit (blood only) 38.3 % (42.0-52.0); Hemoglobin 13.1 g/dl (14.0-18.0); Immature Granulocytes # (auto) 0.02 K/uL (0.01-0.20); Immature Granulocytes % (auto) 0.3 %; Lymphocytes # (auto) 1.21 K/uL (1.20-3.40); Lymphocytes % (auto) 17.8 %; Mean Corpuscular Hemoglobin 32.3 pg (25.0-34.0); Mean Corpuscular Hgb Conc 34.2 g/dL (32.0-36.0); Mean Corpuscular Volume 94.6 fL (80.0-100.0); Mean Platelet Volume 10.9 fL (9.4-12.4); Monocytes % (auto) 8.8 %; Neutrophils # (auto) 4.75 K/uL (1.40-6.50); Neutrophils % (auto) 69.7 %; Platelet Count 171 K/uL (130-400); RDW Coefficient of Variation 12.7 % (11.5-14.5); RDW Standard Deviation 44.4 fL (36.4-46.3); Red Blood Count 4.05 M/uL (4.70-6.10); White Blood Count 6.81 K/ul (4.8-10.8)
[2023-05-25 05:39] LABS: Albumin Globulin Ratio 1.5 (0.9-2); Albumin Level 3.8 gm/dl (3.4-5.0); BUN Creatinine Ratio 23.4 (10-20); Bilirubin,Total 0.8 mg/dl (0.2-1.0); Calcium 8.8 mg/dl (8.6-10.3); Creatinine Clr Calc Pharmacy 65.7 ml/min; Est GFR (African American) 91.6 ml/min; Globulin 2.6 gm/dl (2.5-4.0); Magnesium 2.4 mg/dl (1.7-2.4); Phosphorus 3.5 mg/dl (2.5-4.9); Potassium 3.8 mmol/L (3.5-5.1); Total Protein 6.4 gm/dl (6.0-8.3)
[2023-05-25] MEDS: CARBIDOPA/LEVODOPA 25/100MG TAB PO SCH ×4 (08:51→19:49)
[2023-05-25] MEDS: DULoxetine HCL 30 MG CAP PO SCH (08:52)
[2023-05-25] MEDS: TAMSULOSIN HCL 0.4 MG CAP PO SCH ×2 (08:52→19:49)
[2023-05-25] MEDS: CYANOCOBALAMIN 1000 MCG/ML VIAL IM SCH (08:52)
--- NOTE | 2023-05-25 09:02 | Hospitalist Progress Note ---
Date of Service May 25, 2023 Assessment & Plan (1) Ambulatory dysfunction: Plan: Ambulatory Dysfunction Stroke-like symptoms Rule out new CVA hx CVA on previous imaging-(Patient/family unaware of previous diagnosis.) head CT, brain MRI and MRA with no acute stroke, previous stroke in basal ganglia noted however Continue home pravastatin, holding home aspirin in setting of possible GI bleed PT/OT- recommending return to [facility] PCP follow up after d/c hx Parkinson's disease with cognitive impairment Acute Delirium Pt confused the day prior- states he feels like he is being held against his will Per nursing threatening to call the police Received a one time dose of zyprexa 5mg IM on 05/23 Continue home carbidopa-levodopa New onset anemia Hematochezia on FOBT Hgb currently stable at 13 hx colonic polyps/diverticulosis/hemorrhoids from 2022 colonoscopy Patient without abdominal pain complaints. Holding home aspirin Continue to monitor hgb HTN BP currently controlled HLD Continue home pravastatin as noted above Sarcoidosis Stable BPH on Flomax Diet: HH DVT prophylaxis: previously on SCDs with concern for bleeding but hgb stable. Started on lovenox. Full code as per son/POA, Mr. Cresencio Alicea. Dispo: return to [facility] Admission and Anticipated Discharge Date Admission Date: May 22, 2023 Subjective Pt seen in the AM. AAOx3 with no signs of confusion at that time. States that he is doing well. Denied acute concerns. Review of Systems Review of Systems: All systems reviewed & are unremarkable except as noted in Subjective Physical Exam Physical Exam: General: Alert, orientedx3. No acute distress Skin: No noted rashes or bruises Psych: Appropriate mood and affect Neuro: difficulty with movements HEENT: NC/AT CV: RRR, Normal s1, s2. No murmurs appreciated Resp: Breath sounds clear bilaterally, no increased effort of breathing. Abdomen: Soft, nontender, nondistended. Extremities: No edema in lower extremities bilaterally. Results & Data Results & Data Vital Signs (Past 12 Hours) Vital Signs Temp Pulse Pulse Resp BP Pulse Ox O2 Del Method 05/25/23 08:40 36.0 C L 79 18 137/82 97 Room Air 05/25/23 07:09 76 05/25/23 05:26 36.5 C 76 18 140/78 99 Room Air 05/25/23 00:09 Room Air 05/25/23 00:00 05/24/23 22:05 69 05/24/23 22:03 36.9 C 67 16 122/74 98 Room Air O2 Del Method 05/25/23 08:40 05/25/23 07:09 05/25/23 05:26 05/25/23 00:09 05/25/23 00:00 Room Air 05/24/23 22:05 05/24/23 22:03
[2023-05-25] MEDS: PRAVASTATIN SOD 20 MG TAB PO SCH (19:49)
[2023-05-26] MEDS ORDERED: ENOXAPARIN INJ 40 MG/0.4 ML SYR SQ SCH (04:30)
[2023-05-26 05:24] LABS: Albumin Globulin Ratio 1.4 (0.9-2); Albumin Level 3.9 gm/dl (3.4-5.0); BUN Creatinine Ratio 24.4 (10-20); Basophils # (auto) 0.04 K/uL (0.00-0.20); Basophils % (auto) 0.6 %; Bilirubin,Total 0.9 mg/dl (0.2-1.0); Calcium 8.7 mg/dl (8.6-10.3); Creatinine Clr Calc Pharmacy 79.2 ml/min; Eosinophils # (auto) 0.21 K/uL (0.00-0.50); Eosinophils % (auto) 3.1 %; Est GFR (African American) 102.3 ml/min; Est GFR (Non-African American) 88.3 ml/min; Globulin 2.8 gm/dl (2.5-4.0); Hematocrit (blood only) 40.5 % (42.0-52.0); Hemoglobin 13.8 g/dl (14.0-18.0); Immature Granulocytes # (auto) 0.03 K/uL (0.01-0.20); Immature Granulocytes % (auto) 0.4 %; Lymphocytes # (auto) 1.03 K/uL (1.20-3.40); Lymphocytes % (auto) 15.1 %; Magnesium 2.1 mg/dl (1.7-2.4); Mean Corpuscular Hemoglobin 32.3 pg (25.0-34.0); Mean Corpuscular Hgb Conc 34.1 g/dL (32.0-36.0); Mean Corpuscular Volume 94.8 fL (80.0-100.0); Monocytes # (auto) 0.63 K/uL (0.11-0.59); Monocytes % (auto) 9.2 %; Neutrophils # (auto) 4.89 K/uL (1.40-6.50); Neutrophils % (auto) 71.6 %; Phosphorus 2.9 mg/dl (2.5-4.9); Platelet Count 165 K/uL (130-400); Potassium 3.7 mmol/L (3.5-5.1); RDW Coefficient of Variation 12.5 % (11.5-14.5); RDW Standard Deviation 43.5 fL (36.4-46.3); Red Blood Count 4.27 M/uL (4.70-6.10); Total Protein 6.7 gm/dl (6.0-8.3); White Blood Count 6.83 K/ul (4.8-10.8)
[2023-05-26] MEDS: CYANOCOBALAMIN 1000 MCG/ML VIAL IM SCH (09:11)
[2023-05-26] MEDS: DULoxetine HCL 30 MG CAP PO SCH (09:11)
[2023-05-26] MEDS: TAMSULOSIN HCL 0.4 MG CAP PO SCH ×2 (09:11→21:37)
[2023-05-26] MEDS: CARBIDOPA/LEVODOPA 25/100MG TAB PO SCH ×4 (09:11→21:19)
[2023-05-26] MEDS: ENOXAPARIN INJ 40 MG/0.4 ML SYR SQ SCH (09:12)
--- NOTE | 2023-05-26 12:01 | Hospitalist Progress Note ---
Date of Service May 26, 2023 Assessment & Plan (1) Ambulatory dysfunction: Plan: Ambulatory Dysfunction Stroke-like symptoms Rule out new CVA hx CVA on previous imaging-(Patient/family unaware of previous diagnosis.) head CT, brain MRI and MRA with no acute stroke, previous stroke in basal ganglia noted however Continue home pravastatin, holding home aspirin in setting of possible GI bleed PT/OT- recommending return to [facility]- currently awaiting placement per , staff not available over the weekend. PCP follow up after d/c hx Parkinson's disease with cognitive impairment Acute Delirium Pt confused the day prior- states he feels like he is being held against his will Per nursing threatening to call the police Received a one time dose of zyprexa 5mg IM on 05/23 Continue home carbidopa-levodopa New onset anemia Hematochezia on FOBT Hgb currently stable at 13 hx colonic polyps/diverticulosis/hemorrhoids from 2022 colonoscopy Patient without abdominal pain complaints. Holding home aspirin Continue to monitor hgb HTN BP currently controlled HLD Continue home pravastatin as noted above Sarcoidosis Stable BPH on Flomax Diet: HH DVT prophylaxis: previously on SCDs with concern for bleeding but hgb stable. Started on lovenox. Full code as per son/POA, Mr. Cresencio Alicea. Dispo: return to [facility] Admission and Anticipated Discharge Date Admission Date: May 22, 2023 Subjective Pt seen in the AM. AAOx2, but states he is on a plane. States that he is doing well. Denied acute concerns Currently awaiting placement back to [facility]- per , nursing staff decreased on weekend. Review of Systems Review of Systems: All systems reviewed & are unremarkable except as noted in Subjective Physical Exam Physical Exam: General: Alert, orientedx3. No acute distress Skin: No noted rashes or bruises Psych: Appropriate mood and affect Neuro: difficulty with movements HEENT: NC/AT CV: RRR, Normal s1, s2. No murmurs appreciated Resp: Breath sounds clear bilaterally, no increased effort of breathing. Abdomen: Soft, nontender, nondistended. Extremities: No edema in lower extremities bilaterally. Results & Data Results & Data Vital Signs (Past 12 Hours) Vital Signs Temp Pulse Pulse Resp BP Pulse Ox O2 Del Method 05/26/23 11:56 36.4 C L 85 16 101/68 96 Room Air 05/26/23 08:01 36.5 C 80 18 155/51 H 98 Room Air 05/26/23 07:47 74 05/26/23 03:39 36.7 C 90 18 133/73 96 Room Air
[2023-05-26] MEDS: PRAVASTATIN SOD 20 MG TAB PO SCH (21:20)
[2023-05-27] MEDS: ENOXAPARIN INJ 40 MG/0.4 ML SYR SQ SCH (08:45)
[2023-05-27] MEDS: CARBIDOPA/LEVODOPA 25/100MG TAB PO SCH ×4 (08:45→20:34)
[2023-05-27] MEDS: TAMSULOSIN HCL 0.4 MG CAP PO SCH ×2 (08:45→20:34)
[2023-05-27] MEDS: CYANOCOBALAMIN 1000 MCG/ML VIAL IM SCH (08:45)
[2023-05-27] MEDS: DULoxetine HCL 30 MG CAP PO SCH (08:45)
--- NOTE | 2023-05-27 17:46 | Hospitalist Progress Note ---
Date of Service May 27, 2023 Assessment & Plan (1) Ambulatory dysfunction: Plan: Ambulatory Dysfunction Stroke-like symptoms Rule out new CVA hx CVA on previous imaging-(Patient/family unaware of previous diagnosis.) head CT, brain MRI and MRA with no acute stroke, previous stroke in basal ganglia noted however Continue home pravastatin, holding home aspirin in setting of possible GI bleed PT/OT- recommending return to PCF- currently awaiting placement per , staff not available over the weekend. PCP follow up after d/c No signs and or symptoms of stroke and/or TIA He will get PT evaluation and possible discharge tomorrow hx Parkinson's disease with cognitive impairment Acute Delirium Pt confused the day prior- states he feels like he is being held against his will Per nursing threatening to call the police Received a one time dose of zyprexa 5mg IM on 05/23 Continue home carbidopa-levodopa No more confusion-symptoms are due to Parkinson's disease New onset anemia Hematochezia on FOBT Hgb currently stable at 13 hx colonic polyps/diverticulosis/hemorrhoids from 2022 colonoscopy Patient without abdominal pain complaints. Holding home aspirin Continue to monitor hgb-hemoglobin remains stable at 13.8 HTN BP currently controlled HLD Continue home pravastatin as noted above Sarcoidosis Stable BPH on Flomax Diet: HH DVT prophylaxis: previously on SCDs with concern for bleeding but hgb stable. Started on lovenox. Full code as per son/POA, Mr. Cresencio Alicea. Dispo: return to PCF Likely discharge tomorrow Admission and Anticipated Discharge Date Admission Date: May 22, 2023 Subjective 05/27/2023 Patient was seen and examined in medical telemetry unit He has been feeling much better and remains weak and lethargic Will have PT and OT evaluation prior to discharge tomorrow Does not have any neuro symptoms Review of Systems Review of Systems: All systems reviewed and are unremarkable except as noted below Physical Exam Physical Exam: Lying in bed comfortably with tremors of Parkinson's disease Constitutional: well developed, well nourished, + ill appearing and average body habitus Eyes: PERRL, conjunctivae normal, anicteric sclerae ENMT: external ear and nose normal, oropharynx normal Neck: trachea midline, no thyromegaly Respiratory: no respiratory distress Auscultation: lungs clear to auscultation bilaterally Cardiovascular: Rate/Rhythm: regular rate and regular rhythm; not tachycardic Heart Sounds: normal S1, normal S2 and + murmur Extremities: no edema Gastrointestinal (Abdomen): Inspection/Auscultation: normal bowel sounds; abdomen not distended Percussion/Palpation: abdomen soft; abdomen nontender Musculoskeletal: No acute arthritis involving any of the joint Neurologic: normal touch/pain/proprioception and moves all extremities; no focal motor deficits Psychiatric: A+Ox3, euthymic affect Lymphatic: no cervical or axillary lymphadenopathy Results & Data Results & Data Vital Signs (Past 12 Hours) Vital Signs Temp Pulse Pulse Resp BP Pulse Ox O2 Del Method 05/27/23 15:54 36.6 C 76 20 111/69 99 Room Air 05/27/23 15:03 80 05/27/23 11:32 36.6 C 75 18 118/74 98 Room Air 05/27/23 08:45 Room Air 05/27/23 08:03 36.5 C 70 17 153/78 H 98 Room Air 05/27/23 07:33 69 Medications Administered Current Inpatient Medications Acetaminophen (Acetaminophen 325 Mg Tab) 650 mg PO Q4H PRN PRN Reason: Pain or Fever Stop: 06/22/23 00:48 Carbidopa/Levodopa (Carbidopa/Levodopa 25/100mg Tab) 1 tab PO QID [facility] Stop: 06/22/23 08:59 Last Admin: 05/27/23 17:08 Dose: 1 tab Cyanocobalamin (Cyanocobalamin 1000 Mcg/Ml Vial) 1,000 mcg IM QAM [facility] Stop: 06/22/23 08:59 Last Admin: 05/27/23 08:45 Dose: 1,000 mcg Duloxetine HCl (Duloxetine Hcl 30 Mg Cap) 30 mg PO QAM [facility] Stop: 06/22/23 08:59 Last Admin: 05/27/23 08:45 Dose: 30 mg Enoxaparin Sodium (Enoxaparin Inj 40 Mg/0.4 Ml Syr) 40 mg SQ Q24H [facility] Stop: 06/25/23 09:29 Last Admin: 05/27/23 08:45 Dose: 40 mg Pravastatin Sodium (Pravastatin Sod 20 Mg Tab) 20 mg PO QPM [facility] Stop: 06/22/23 20:59 Last Admin: 05/26/23 21:20 Dose: 20 mg Tamsulosin HCl (Tamsulosin Hcl 0.4 Mg Cap) 0.4 mg PO BID [facility] Stop: 06/22/23 08:59 Last Admin: 05/27/23 08:45 Dose: 0.4 mg
[2023-05-27] MEDS: PRAVASTATIN SOD 20 MG TAB PO SCH (20:34)
[2023-05-28] MEDS: TAMSULOSIN HCL 0.4 MG CAP PO SCH (08:55)
[2023-05-28] MEDS: DULoxetine HCL 30 MG CAP PO SCH (08:55)
[2023-05-28] MEDS: ENOXAPARIN INJ 40 MG/0.4 ML SYR SQ SCH (08:55)
[2023-05-28] MEDS: CYANOCOBALAMIN 1000 MCG/ML VIAL IM SCH (08:55)
[2023-05-28] MEDS: CARBIDOPA/LEVODOPA 25/100MG TAB PO SCH ×2 (08:55→14:17)
--- NOTE | 2023-05-28 12:10 | Hospitalist Progress Note ---
Date of Service May 28, 2023 Assessment & Plan (1) Ambulatory dysfunction: Plan: Ambulatory Dysfunction Stroke-like symptoms Rule out new CVA hx CVA on previous imaging-(Patient/family unaware of previous diagnosis.) head CT, brain MRI and MRA with no acute stroke, previous stroke in basal ganglia noted however Continue home pravastatin, holding home aspirin in setting of possible GI bleed PT/OT- recommending return to F- currently awaiting placement per , staff not available over the weekend. PCP follow up after d/c No signs and or symptoms of stroke and/or TIA He will get PT evaluation and possible discharge tomorrow Remains stable and physical therapy recommended to continue PT on discharge He will be discharged this afternoon As per the PT note-the patient is demonstrating increased Parkinson's type balance deficit and he is now requiring assistance for all transfers and ambulation. He would benefit from a wheelchair for safety and distance mobility. Patient will benefit from PT while at [facility] with transfer to rehab appropriate to regain functional independence return to [facility] level and reduce risk of falls with additional injury. He will need to continue PT and OT while at the rehab hx Parkinson's disease with cognitive impairment Acute Delirium Pt confused the day prior- states he feels like he is being held against his will Per nursing threatening to call the police Received a one time dose of zyprexa 5mg IM on 05/23 Continue home carbidopa-levodopa No more confusion-symptoms are due to Parkinson's disease Has usual parkinsonian tremors New onset anemia Hematochezia on FOBT Hgb currently stable at 13 hx colonic polyps/diverticulosis/hemorrhoids from 2022 colonoscopy Patient without abdominal pain complaints. Holding home aspirin Continue to monitor hgb-hemoglobin remains stable at 13.8 HTN BP currently controlled Blood pressure remains on the lower side at 97/67 Advised to drink more fluid HLD Continue home pravastatin as noted above Sarcoidosis Stable BPH on Flomax Diet: HH DVT prophylaxis: previously on SCDs with concern for bleeding but hgb stable. Started on lovenox. Full code as per son/POA, Mr. Cresencio Alicea. Dispo: return to PCF will discharge this afternoon Admission and Anticipated Discharge Date Admission Date: May 22, 2023 Subjective 05/27/2023 Patient was seen and examined in medical telemetry unit He has been feeling much better and remains weak and lethargic Will have PT and OT evaluation prior to discharge tomorrow Does not have any neuro symptoms 05/28/2023 The patient was seen and examined in medical telemetry unit He has been feeling much better but remains weak He has had PT and OT evaluation and recommended that he can be discharged Denies any other acute symptoms Review of Systems Review of Systems: All systems reviewed and are unremarkable except as noted below Physical Exam Physical Exam: Lying in bed comfortably with tremors of Parkinson's disease Constitutional: well developed, well nourished, + ill appearing and average body habitus Eyes: PERRL, conjunctivae normal, anicteric sclerae ENMT: external ear and nose normal, oropharynx normal Neck: trachea midline, no thyromegaly Respiratory: no respiratory distress Auscultation: lungs clear to auscultation bilaterally Cardiovascular: Rate/Rhythm: regular rate and regular rhythm; not tachycardic Heart Sounds: normal S1, normal S2 and + murmur Extremities: no edema Gastrointestinal (Abdomen): Inspection/Auscultation: normal bowel sounds; abdomen not distended Percussion/Palpation: abdomen soft; abdomen nontender Musculoskeletal: No acute arthritis involving any of the joints Neurologic: normal touch/pain/proprioception and moves all extremities; no focal motor deficits Psychiatric: A+Ox3, euthymic affect Lymphatic: no cervical or axillary lymphadenopathy Results & Data Results & Data Vital Signs (Past 12 Hours) Vital Signs Temp Pulse Pulse Resp BP Pulse Ox O2 Del Method 05/28/23 11:19 36.4 C L 88 16 97/67 L 99 Room Air 05/28/23 09:00 Room Air 05/28/23 07:38 78 05/28/23 07:29 36.5 C 74 18 138/89 99 Room Air 05/28/23 03:58 36.5 C 73 16 159/84 H 97 Room Air Medications Administered Current Inpatient Medications Acetaminophen (Acetaminophen 325 Mg Tab) 650 mg PO Q4H PRN PRN Reason: Pain or Fever Stop: 06/22/23 00:48 Carbidopa/Levodopa (Carbidopa/Levodopa 25/100mg Tab) 1 tab PO QID [facility] Stop: 06/22/23 08:59 Last Admin: 05/28/23 08:55 Dose: 1 tab Cyanocobalamin (Cyanocobalamin 1000 Mcg/Ml Vial) 1,000 mcg IM QAM [facility] Stop: 06/22/23 08:59 Last Admin: 05/28/23 08:55 Dose: 1,000 mcg Duloxetine HCl (Duloxetine Hcl 30 Mg Cap) 30 mg PO QAM [facility] Stop: 06/22/23 08:59 Last Admin: 05/28/23 08:55 Dose: 30 mg Enoxaparin Sodium (Enoxaparin Inj 40 Mg/0.4 Ml Syr) 40 mg SQ Q24H [facility] Stop: 06/25/23 09:29 Last Admin: 05/28/23 08:55 Dose: 40 mg Pravastatin Sodium (Pravastatin Sod 20 Mg Tab) 20 mg PO QPM [facility] Stop: 06/22/23 20:59 Last Admin: 05/27/23 20:34 Dose: 20 mg Tamsulosin HCl (Tamsulosin Hcl 0.4 Mg Cap) 0.4 mg PO BID [facility] Stop: 06/22/23 08:59 Last Admin: 05/28/23 08:55 Dose: 0.4 mg
--- OUTSIDE RECORDS SUMMARY | 2023-05-28 23:52 | External Medical Summary | Summary of Care ---
Author Name Unknown Organization [facility] Address [address] [place] [address] Phone [phone] Care Team Providers Care Clerical Administrator Name Role Phone Elias Duarte DO Primary Care Provider Encounter Details Date Type Department Care Team Description 05/06/2023 Telephone Gastroenterology, [facility] [address] [place] [address] Services, Scheduling [address] [place] [address] Allergies No known active allergiesdocumented as of this encounter (statuses as of 05/06/2023) Medications Medication Sig Dispensed Refills Start Date End Date Status Carbidopa-Levodopa ER 25-100 MG Oral Tablet Extended Release (Sinemet CR)Indications:Parki nson's disease TAKE 1 TABLET BY MOUTH BEFORE BEDTIME 90 Tablet 1 08/28/2022 08/28/2023 Active Carbidopa-Levodopa 25-100 MG Oral Tablet Take 1 Tablet by mouth in the morning and 1 Tablet at noon and 1 Tablet in the evening and 1 Tablet before bedtime. 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 30 Tablet 03/28/2023 Active DULoxetine HCl 30 MG Oral Capsule Delayed Release Particles (Cymbalta)Indication s:Lumbar degenerative disc disease,Episode of recurrent major depressive disorder, unspecified depression episode severity (HCC) Take 1 Capsule by mouth in the morning. 30 Capsule 03/28/2023 Active Meclizine HCl 25 MG Oral Tablet ChewableIndications: Vertigo Take 1 Tablet by mouth 2 times a day as needed for Dizziness. 30 Tablet 1 03/28/2023 Active Pravastatin Sodium 20 MG Oral Tablet (Pravachol)Indicatio ns:Mixed dyslipidemia,PVC (premature ventricular contraction) Take 1 Tablet by mouth every evening. 30 Tablet 11 03/28/2023 Active Tamsulosin HCl 0.4 MG Oral Capsule (Flomax)Indications: BPH with obstruction/lower urinary tract symptoms Take 1 Capsule by mouth in the morning and 1 Capsule in the evening. 60 Capsule 03/28/2023 Active Aspirin 81 MG Oral Tablet Delayed ReleaseIndications:P alpitations Take 1 Tablet by mouth in the morning. 30 Tablet 03/28/2023 Active Polyethylene Glycol 3350 17 GM Oral Packet (Miralax)Indications :Constipation Take 1 Packet by mouth in the morning. 30 Each 11 03/28/2023 Active documented as of this encounter (statuses as of 05/06/2023) Active Problems Problem Noted Date BPH with obstruction/lower urinary tract symptoms 08/21/2021 Parkinson's disease 01/14/2019 Lumbar degenerative disc disease 019 Episode of recurrent major depressive di sorder 10/27/2018 PVC (premature ventricular contraction) 03/12/2016 Dizziness 03/12/2016 Palpitations 03/12/2016 Irritable bowel syndrome with constipati on 02/12/2014 Need for prophylactic vaccin ation against Streptococcus pneumoniae (pneumococcus) 08/19/2013 Routine medical exam 03/28/2010 Special screening for malignant neoplasm s, colon 03/28/2010 Mixed dyslipidemia Sarcoidosis of lung Overview: ? dx 30 yrs ago but recent cxr normal documented as of this encounter (statuses as of 05/06/2023) Resolved Problems Problem Noted Date Resolved Date Prediabetes 08/29/2020 05/04/2021 Overview: Per Prediabetes protocol Impaired fasting glucose 03/12/2016 018 Impacted cerumen 02/12/2014 10/05/2014 Screening for prostate cancer 07/24/2012 Palpitations 09/20/2011 08/19/2013 Spasm of muscle 05/15/2011 08/19/2013 Plantar fibromatosis 04/23/2011 08/19/2013 Urinary frequency 03/28/2010 08/19/2013 Impaired fasting glucose 014 Stress reaction, emotional 08/19 Stress reaction, emotional 03/28 Overview: hx of depression/ anxiety prior on meds documented as of this encounter (statuses as of 05/06/2023) Immunizations Name Administration Dates Next Due COVID-19 mRNA, LNP-s, No Pre serve, 2-Dose Series (Thumbs Up) 06/08/2021,11/09/2020,10/19/2020 Covid-19, Mrna, Lnp-s, Pf, B ivalent, 30 Mcg, IM, 12 yrs and above (Pfizer) 05/17/2022 DTaP Dipth/Tet/Acell Pertussis (Infanrix), Peds 07/14/2009 PPD 03/28/2023 Pneumococcal Conjugate Vacc, 13 Valent (Prevnar) 03/06/2016 Pneumococcal Polysaccharide PPV23 (Pneumovax) 08/19/2013 SEASONAL INFLUENZA, PF, 6 M & Above, IM , (FLULAVAL or FLUZONE) 04/04/2021,06/19/2018,07/23/2017 Season Influenza, Quad, PF, Adjuvanted, 65+ Yrs, IM (FLUAD) 05/05/2020 Seasonal Influenza, Quadriva lent Hd (Fluzone Hd) 05/17/2022 Seasonal Influenza, Quadriva lent, No Preserve, IM 06/28/2015 Seasonal Influenza, Split, I IV3, With Preserve, Inj 05/04/2014,05/25/2013,07/24/2012,04/23,05/01/2010 Seasonal Influenza, Trivalen t, Adjuvanted, 65+ yrs 08/04/2019 TDAP (age 10 and older)(Boostrix) 02/12/2014 Varicella Zoster Vaccine (Adult) 02/12/2014 Zoster Vaccine Recombinant (Shingrix) 02/08/2020 ,08/04/2019 documented as of this encounter Social History Tobacco Use Types Packs/Day Years Used Date Smoking Tobacco: Former Cigarettes 1 12 Q uit: 07/22/1974 Smokeless Tobacco: Never Alcohol Use Standard Drinks/Week Comments No 0 (1 standard drink = 0.6 oz pur e alcohol) Food Insecurity Answer Date Recorded Within the past 12 months, y ou worried that your food would run out before you got money to buy more. Never true 05/16/2020 Within the past 12 months, t he food you bought just didn't last and you didn't have money to get more. Never true 05/16/2020 Sex Assigned at Date Recorded Male 05/16/2020 9:28 AM E DT Job Start Date Occupation Industry Not on file Not on file Not on file documented as of this encounter Miscellaneous Notes * Telephone Encounter - CARMEN Tristan - 05/06/2023 11:00 AM EDT Pt calling to cx his colonoscopy he does not want to have one and does not want to reschedule. Please cx Ty documented in this encounter Plan of Treatment Upcoming Encounters Date Type Specialty Care Team Description 05/07/2023 Office Visit Family Medicine Joseph Yoder MD [address] [place] [address] 09/27/2023 Hospital Encounter Endoscopy Enid John MD [address] [place] [address] 09/27/2023 Surgery Endoscopy Enid John MD [address] [place] [address] COLONOSCOPY FLEXIBLE PROXIMAL DIAGNOSTIC Scheduled Procedures Name Priority Associated Diagnoses Date/Ti me COLONOSCOPY FLEXIBLE PROXIMAL DIAGNOSTIC Recall History of colon polyps 09/27/2023 10:45 AM EST Health Maintenance Due Date Last Done Comments Depression Screening 02/07/2021 02/08/2020 COVID-19 Vaccine ( season) 2023 05/17/2022, 06/08/2021, 11/09/2020, Additional history exists Influenza Vaccine (FLU shot) (#1) 2023 05/17/2022, 04/04/2021, 05/05/2020, Additional history exists COLONOSCOPY-ANNUAL AGES 18-100 08/03/2023 08/03/2022, 08/03/2022, 03/08/2020, Additional history exists DTaP,Tdap,and Td Vaccines (3 - Td or Tdap) 02/13/2024 02/12/2014, 07/14/2009 Pneumococcal Vaccine: 65+ Years Completed 03/06/2016, 08/19/2013 Zoster Vaccines Completed 02/08/2020, 07/22, 02/12/2014 COLONOSCOPY-EVERY 3 YRS AGES 18-100 Discontinued 08/03/2022, 08/03/2022, 03/08/2020, Additional history exists GARDASIL-HPV IMMUNIZATION SERIES Aged Out No longer eligible based on patient's age to complete this topic Hepatitis B Aged Out No longer eligi ble based on patient's age to complete this topic MENINGOCOCCAL (MENACTRA/MENVEO) Aged Out No longer eligible based on patient's age to complete this topic documented as of this encounter Medical Devices Implanted Type Area Cashier Parking Lot Device Identifier Shelf Expiration Date Model / Serial / Lot Lens Intraoc 20.0 - [id number] - [id number] Implanted:Qty: 1 on 09/26/2021 by Joni Moreno MD at OR [facility] Left: Eye [employer]USCH [employer] LOMB 04/20/2026 [id number] / [id number] / [id number] Lens Intraoc 20.0 - [id number] - [id number] Implanted:Qty: 1 on 10/10/2021 by Joni Moreno MD at OR [facility] Right: Eye BAUSCH [employer] LOMB 05/21/2026 [id number] / [id number] / [id number] Sureclip 16mm 235cm - [id number] Implanted:Qty: 2 on 08/03/2022 by Enid John MD at ENDOSCOPY [facility] Colon MICRO TECH ENDOSCOPY 09/28/2024 [id number] / / documented as of this encounter Advance Directives Documents on File Type Date Recorded 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
--- OUTSIDE RECORDS SUMMARY | 2023-05-28 23:52 | External Medical Summary | Summary of Care ---
Author Name Unknown Organization [facility] Address [address] [place] [address] Phone [phone] Care Team Providers Care Manager Regulatory Name Role Phone Elias Duarte DO Primary Care Provider [phone] Encounter Details Date Type Department Care Team Description 05/06/2023 Telephone Gastroenterology, [facility] [address] [place] [address] Services, Scheduling [address] [place] [address] Allergies No known active allergiesdocumented as of [...] mRNA, LNP-s, No Pre serve, 2-Dose Series (Yieldr) 06/08/2021,11/09/2020,10/19/2020 Covid-19, Mrna, Lnp-s, Pf, B ivalent, [...] Miscellaneous Notes * Telephone Encounter - CARMEN Fermin - 05/06/2023 12:38 PM EDT 09/26 colonoscopy cx'd. ADALBERTO Jennings, this was a 6-12 mo repeat for a colon that was done 07/2022. * Telephone Encounter - CARMEN Tristan - 05/06/2023 11:00 AM EDT Pt calling to cx his colonoscopy he does not want to have one and does not want to reschedule. Please cx Ty documented in this encounter Plan of Treatment Upcoming Encounters Date Type Specialty Care Team Description 05/07/2023 Office Visit Family Medicine Joseph Yoder MD [address] [place] [address] Health Maintenance Due Date Last Done Comments Depression Screening 02/07/2021 02/08/2020 COVID-19 Vaccine (2022- season) 2023 05/17/2022, 06/08/2021, 11/09/2020, Additional history [...] this encounter Medical Devices Implanted Type Area Lathmaker Device Identifier Shelf Expiration Date Model / Serial / Lot Lens Intraoc 20.0 - [id number] - [id number] Implanted:Qty: 1 on 09/26/2021 by Joni Moreno MD at OR [facility] Left: Eye BAUSCH [employer] LOMB 04/20/2026 [id number] / [id number] / [id number] Lens Intraoc 20.0 - [id number] - [id number] Implanted:Qty: 1 on 10/10/2021 by Joni Moreno MD at OR [facility] Right: Eye BAUSCH [employer] LOMB 05/21/2026 [id number] / [id number] / [id number] Sureclip 16mm 235cm - [id number] Implanted:Qty: 2 on 08/03/2022 by Enid John MD at ENDOSCOPY [facility] Colon MICRO TECH ENDOSCOPY 09/28/2024 [id number] / / documented as of this encounter Advance Directives Documents on File Type Date Recorded 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
--- OUTSIDE RECORDS SUMMARY | 2023-05-28 23:52 | External Medical Summary | Summary of Care ---
Author Name Unknown Organization [facility] Address [address] [facility] [place] [address] Phone [phone] Care Team Providers Care Litigation Legal Secretary Name Role Phone Elias Duarte DO Primary Care Provider Reason for Visit * Reason Onset Date Comments Forms Request 03/19/2023 Encounter Details Date Type Department Care Team Description 03/19/2023 Telephone Family Practice [facility] [address] [place] [address] Elias Duarte DO [address] [place] [address] Forms Request Allergies No known active allergiesdocumented as of this encounter (statuses as of 04/01/2023) Medications Medication Sig Dispensed Refills Start Date End Date Status Carbidopa-Levodopa ER 25-100 MG Oral Tablet Extended Release (Sinemet CR)Indications:Par kinson's disease (HCC) TAKE 1 TABLET BY MOUTH BEFORE BEDTIME 90 Tablet 1 08/28/2022 08/28/2023 Active Carbidopa-Levodopa 25-100 MG Oral Tablet Take 1 Tablet by mouth in the morning and 1 Tablet at noon and 1 Tablet in the evening and 1 Tablet before bedtime. 0 Active B-12 1000 MCG Oral TabletIndications: B12 deficiency Take 1,000 mcg by mouth daily. 90 Tab 1 08/16/2020 03/28/2023 Discontinue d(Refill) Aspirin 81 MG Oral Tablet Delayed Release Take 1 Tablet by mouth in the morning. 0 03/28/2023 Discontinue d(Refill) Polyethylene Glycol 3350 17 GM Oral Packet (Miralax) Take 1 Packet by mouth in the morning. 0 03/28/2023 Discontinue d(Refill) Pravastatin Sodium 20 MG Oral Tablet (Pravachol)Indicat ions:Mixed dyslipidemia,PVC (premature ventricular contraction) Take 1 Tablet by mouth every evening. 90 Tablet 3 08/29/2022 03/28/2023 Discontinue d(Refill) DULoxetine HCl 30 MG Oral Capsule Delayed Release Particles (Cymbalta)Indicati ons:Lumbar degenerative disc disease,Episode of recurrent major depressive disorder, unspecified depression episode severity (HCC) TAKE ONE CAPSULE BY MOUTH DAILY DO NOT CRUSH CUT OR CHEW 90 Capsule 0 12/24/2022 03/28/2023 Discontinue d(Refill) Meclizine HCl 25 MG Oral Tablet ChewableIndication s:Vertigo chew 1 Tablet by mouth 2 times a day as needed for Dizziness. 30 Tablet 1 03/14/2023 03/28/2023 Discontinue d(Refill) Tamsulosin HCl 0.4 MG Oral Capsule (Flomax)Indication s:BPH with obstruction/lower urinary tract symptoms Take 1 Capsule by mouth in the morning and 1 Capsule in the evening. 180 Capsule 0 03/14/2023 03/28/2023 Discontinue d(Refill) documented as of this encounter (statuses as of 04/01/2023) Active Problems Problem Noted Date BPH with [...] as of this encounter (statuses as of 04/01/2023) Resolved Problems Problem Noted Date Resolved Date [...] as of this encounter (statuses as of 04/01/2023) Immunizations Name Administration Dates Next Due COVID-19 mRNA, LNP-s, No Pre serve, 2-Dose Series ([employer]) 06/08/2021,11/09/2020,10/19/2020 Covid-19, Mrna, Lnp-s, Pf, B ivalent, 30 Mcg, IM, 12 yrs and above (Pfizer) 05/17/2022 DTaP Dipth/Tet/Acell Pertussis (Infanrix), Peds 07/14/2009 PPD 03/28/2023 Pneumococcal Conjugate Vacc, 13 Valent (Prevnar) 03/06/2016 Pneumococcal Polysaccharide PPV23 (Pneumovax) 08/19/2013 Season Influenza, Quad, PF, Adjuvanted, 65+ Yrs, IM (FLUAD) 05/05/2020 Seasonal Influenza, PF, 6 mo ns & Above, IM , (Flulaval) 04/04/2021,06/19/2018,07/23/2017 Seasonal Influenza, Quadriva lent Hd (Fluzone Hd) [...] encounter Miscellaneous Notes * Telephone Encounter - Maryjane Haji LPN - 04/01/2023 4:42 PM EDT Call documentation faxed to [facility] as requested. Called the community to verify that everything was received. They confirmed that they had everything. * Telephone Encounter - Lauryn Avery LPN - 03/30/2023 10:05 AM EDT PPD read and form completed. Placed back on Maryjane's desk. * Telephone Encounter - Maryjane Haji LPN - 03/28/2023 10:43 AM EDT Pt was in today and had PPD placed as well as Covid test done. Pt to be in 03/30 @ 1030 to have PPD read. Form at my desk. Will fax to [facility] once covid test results are in Saturday. * Telephone Encounter - Crystal Huston Hermann, CARMEN - 03/27/2023 3:20 PM EDT Relayed message and scheduled an appt for the PPD after speaking to Shy in the clinic for 03/28/23 * Telephone Encounter - Sana Waterman - 03/27/2023 12:55 PM EDT LM for pt to call back to schedule a nurse appt for a PPD * Telephone Encounter - Elias Duarte DO - 03/27/2023 12:06 PM EDT Spoke with patient. Form completed as per request. Forms require patient's signature Patient requires PPD test. Please schedule nurse visit for PPD test. Patient may sign form for completion during nurse visit for PPD test. Please assist with scheduling * Telephone Encounter - YOLI Szymanski - 03/26/2023 8:07 PM EDT The whole packet was given to Dr. Duarte -- he was going to fill out both forms after talking to the patient over the phone. * Telephone Encounter - Maryjane Haji LPN - 03/26/2023 4:33 PM EDT Were the other forms completed? If can they be faxed back to [facility] * Telephone Encounter - Christine Butt, CARMEN - 03/26/2023 1:32 PM EDT Joseline from [facility] calling in to check on the status of previous message. Wanted to inform that the patient his sold house this weekend and [facility] is awaiting the DME paperwork for him move into the facility. Callback number for Joseline is [phone]. * Telephone Encounter - YOLI Szymanski - 03/22/2023 9:56 AM EDT Receive the packet, we did not discuss any of items on POLST form. Discussed Dr. Duarte -- he will give him call to discuss and fill out the form. * Telephone Encounter - Maryjane Haji LPN - 03/19/2023 3:28 PM EDT Paperwork given to Darío * Telephone Encounter - CARMEN Mark - 03/19/2023 1:11 PM EDT [facility] calling stating that the PA that saw the pt last needs to fill out the paper work. Thanks * Telephone Encounter - Maryjane Haji LPN - 03/19/2023 1:04 PM EDT Provider to address: Darío Reason for Call: No chief complaint on file. Contact: Telephone Call Contact Type: Other: Form Outcome: Paperwork dropped off to our office today by [facility] for possible ambition to the facility. Pt was last seen by Darío.on 03/14 for vertigo and Parkinson's. Are youok with filling out the paperwork or does he need to be seen for a physical? Total Time including non face to face (minutes): 15 documented in this encounter Plan of Treatment Upcoming Encounters Date Type Specialty Care Team Description 05/07/2023 Office Visit Family Medicine Paresh, Joseph Angelo MD [address] [place] [address] 05/27/2023 Hospital Encounter Endoscopy Enid John MD [address] [place] [address] 05/27/2023 Surgery Endoscopy Enid John MD [address] [place] [address] COLONOSCOPY FLEXIBLE PROXIMAL DIAGNOSTIC Scheduled Procedures Name Priority Associated Diagnoses Date/Ti me COLONOSCOPY FLEXIBLE PROXIMAL DIAGNOSTIC Recall History of colon polyps 05/27/2023 2:00 PM EST Health Maintenance Due Date Last Done Comments Depression Screening 02/07/2021 02/08/2020 Influenza Vaccine (FLU shot) (#1) 2023 05/17/2022, 04/04/2021, 05/05/2020, Additional history exists COLONOSCOPY-ANNUAL AGES 18-100 08/03/2023 08/03/2022, 08/03/2022, 03/08/2020, Additional history exists DTaP,Tdap,and Td Vaccines (3 - Td or Tdap) 02/13/2024 02/12/2014, 07/14/2009 Pneumococcal Vaccine: 65+ Years Completed 03/06/2016, 08/19/2013 Zoster Vaccines Completed 02/08/2020, 07/22, 02/12/2014 COVID-19 Vaccine Completed 05/17/2022, , 11/09/2020, Additional history exists COLONOSCOPY-EVERY 3 YRS AGES 18-100 Discontinued 08/03/2022, [...] this encounter Medical Devices Implanted Type Area Dampproofer Device Identifier Shelf Expiration Date Model / Serial / Lot Lens Intraoc 20.0 - [id number] - [id number] Implanted:Qty: 1 on 09/26/2021 by Joni Moreno MD at OR [facility] Left: Eye BAUSCH & LOMB 04/20/2026 [id number] / [id number] / [id number] Lens Intraoc 20.0 - [id number] - [id number] Implanted:Qty: 1 on 10/10/2021 by Joni Moreno MD at OR [facility] Right: Eye BAUSCH & LOMB 05/21/2026 [id number] / [id number] / [id number] Sureclip 16mm 235cm - [id number] Implanted:Qty: 2 on 08/03/2022 by Enid John MD at ENDOSCOPY [facility] Colon MICRO TECH ENDOSCOPY 09/28/2024 [id number] / / documented as of this encounter Care Teams Litigation Legal Secretary Relationship Specialty Start Date End Date Elias Duarte DO [address] [place] [address] PCP - General Family Medicine 07/16/17 documented as of this encounter
--- OUTSIDE RECORDS SUMMARY | 2023-05-28 23:52 | External Medical Summary | Summary of Care ---
Author Name Unknown Organization [facility] Address [address] [place] [address] Phone [phone] Care Team Providers Care Shank Threader Name Role Phone Elias Duarte DO Primary Care Provider Encounter Details Date Type Department Care Team Description 05/06/2023 Telephone Gastroenterology, [facility] [address] [place] [address] Services, Scheduling [address] [place] [address] Allergies No known active allergiesdocumented as of this encounter (statuses as of 05/07/2023) Medications Medication Sig Dispensed Refills Start Date [...] as of this encounter (statuses as of 05/07/2023) Active Problems Problem Noted Date BPH with [...] as of this encounter (statuses as of 05/07/2023) Resolved Problems Problem Noted Date Resolved Date [...] as of this encounter (statuses as of 05/07/2023) Immunizations Name Administration Dates Next Due COVID-19 mRNA, LNP-s, No Pre serve, 2-Dose Series ([employer]) 06/08/2021,11/09/2020,10/19/2020 Covid-19, Mrna, Lnp-s, Pf, B ivalent, [...] Encounters Date Type Specialty Care Team Description 05/21/2023 Office Visit Family Medicine Joseph Yoder MD [address] [place] [address] Health Maintenance Due Date Last Done Comments [...] this encounter Medical Devices Implanted Type Area Journalism Professor Device Identifier Shelf Expiration Date Model / Serial / Lot Lens Intraoc 20.0 - [id number] - [id number] Implanted:Qty: 1 on 09/26/2021 by Joni Moreno MD at OR [facility] Left: Eye BAUSCH & LOMB 04/20/2026 [id number] / [id number] / [id number] Lens Intraoc 20.0 - [id number] - [id number] Implanted:Qty: 1 on 10/10/2021 by Joni Moreno MD at OR [facility] Right: Eye BAUSCH & LOMB 05/21/2026 [id number] / [id number] / [id number] Sureclip 16mm 235cm - [id number] Implanted:Qty: 2 on 08/03/2022 by Enid John MD at ENDOSCOPY [facility] Colon MICRO TECH ENDOSCOPY 09/28/2024 [id number] / / documented as of this encounter Advance Directives Documents on File Type Date Recorded Patient Motor Vehicle Assembler Expl anation POLST 03/27/2023 [place] [facility] FOR LIFE-SUSTAINING TREATMENT Care Teams Shank Threader Relationship Specialty Start Date End Date Elias Duarte DO [address] [place] [address] PCP - General Family Medicine 07/16/17 documented as of this encounter
--- OUTSIDE RECORDS SUMMARY | 2023-05-28 23:53 | External Medical Summary | Summary of Care ---
Author Name Unknown Organization [facility] [address] [facility] [address] Phone [phone] Care Team Providers Care Fish Hatchery Manager Name Role Phone Elias Duarte DO Primary Care Provider [phone] Reason for Visit * Reason Onset Date Comments TB Test Reading 03/30/2023 Encounter Details Date Type Department Care Team Description 03/30/2023 Nurse Only Ancillary [facility] [address] [facility] [address] [facility], [facility] [address] TB Test Reading Allergies No known active allergiesdocumented as of this encounter (statuses as of 03/30/2023) Medications Medication Sig Dispensed Refills Start Date End Date Status Carbidopa-Levodopa ER 25-100 MG Oral Tablet Extended Release (Sinemet CR)Indications:Parki nson's disease (HCC) TAKE 1 TABLET BY MOUTH BEFORE BEDTIME 90 Tablet 1 08/28/2022 08/28/2023 Active Carbidopa-Levodopa 25-100 MG Oral Tablet Take 1 Tablet by mouth in the morning and 1 Tablet at noon and 1 Tablet in the evening and 1 Tablet before bedtime. 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 30 Tablet 11 03/28/2023 Active DULoxetine HCl 30 MG Oral Capsule Delayed Release Particles (Cymbalta)Indication s:Lumbar degenerative disc disease,Episode of recurrent major depressive disorder, unspecified depression episode severity (HCC) Take 1 Capsule by mouth in the morning. 30 Capsule 11 03/28/2023 Active Meclizine HCl 25 MG Oral Tablet ChewableIndications: Vertigo Take 1 Tablet by mouth 2 times a day as needed for Dizziness. 30 Tablet 1 03/28/2023 Active Pravastatin Sodium 20 MG Oral Tablet (Pravachol)Indicatio ns:Mixed dyslipidemia,PVC (premature ventricular contraction) Take 1 Tablet by mouth every evening. 30 Tablet 03/28/2023 Active Tamsulosin HCl 0.4 MG Oral [...] by mouth in the morning. 30 Each 03/28/2023 Active documented as of this encounter (statuses as of 03/30/2023) Active Problems Problem Noted Date BPH with [...] as of this encounter (statuses as of 03/30/2023) Resolved Problems Problem Noted Date Resolved Date [...] as of this encounter (statuses as of 03/30/2023) Immunizations Name Administration Dates Next Due COVID-19 mRNA, LNP-s, No Pre serve, 2-Dose Series ([employer]) 06/08/2021,11/09/2020,10/19/2020 Covid-19, Mrna, Lnp-s, Pf, B ivalent, [...] on file documented as of this encounter Progress Notes * Ariadne Leone LPN - 03/30/2023 9:54 AM EDT Patient here for PPD reading. PPD Results: 0 mm documented in this encounter Miscellaneous Notes * Addendum Note - Ariadne Leone LPN - 03/30/2023 9:54 AM EDTAddended by: ARIADNE LEONE on: 03/30/2023 09:54 AM Modules accepted: Orders documented in this encounter Plan of Treatment Upcoming Encounters Date Type Specialty Care Team Description 05/07/2023 Office Visit Family Medicine Joseph Yoder MD [address] [place] [address] 05/27/2023 Hospital Encounter Endoscopy Enid John MD [address] [place] [address] 05/27/2023 Surgery Endoscopy Enid John MD [address] [place] [address] COLONOSCOPY FLEXIBLE PROXIMAL DIAGNOSTIC Scheduled Procedures Name [...] this encounter Medical Devices Implanted Type Area Thread Weaver Device Identifier Shelf Expiration Date Model / Serial / Lot Lens Intraoc 20.0 - [id number] - [id number] Implanted:Qty: 1 on 09/26/2021 by Joni Moreno MD at OR [facility] Left: Eye BAUSCH & LOMB 04/20/2026 [id number] / [id number] / [id number] Lens Intraoc 20.0 - [id number] - [id number] Implanted:Qty: 1 on 10/10/2021 by Joni Moreno MD at OR [facility] Right: Eye BAUSCH & LOMB 05/21/2026 [id number] / [id number] / [id number] Sureclip 16mm 235cm - [id number] Implanted:Qty: 2 on 08/03/2022 by Enid John MD at ENDOSCOPY [facility] Colon MICRO TECH ENDOSCOPY 09/28/2024 [id number] / / documented as of this encounter Care Teams Fish Hatchery Manager Relationship Specialty Start Date End Date Elias Duarte DO [address] [place] [address] PCP - General Family Medicine 07/16/17 documented as of this encounter
--- OUTSIDE RECORDS SUMMARY | 2023-05-28 23:53 | External Medical Summary | Summary of Care ---
Author Name Unknown Organization [facility] Address [address] [facility] [address] Phone [phone] Care Team Providers Care Recycling Worker Name Role Phone Elias Duarte DO Primary Care Provider [phone] Reason for Visit * Reason Onset Date Comments Medication Refill 03/28/2023 Encounter Details Date Type Department Care Team Description 03/28/2023 Refill Family Practice [facility] [address] [place] [address] Elias Duarte DO [address] [place] [address] Palpitations*; B12 deficiency; Parkinson's disease (HCC); Lumbar degenerative disc disease; Episode of recurrent major depressive disorder, unspecified depression episode severity ([facility]); Vertigo; Mixed dyslipidemia; PVC (premature ventricular contraction); BPH with obstruction/lower urinary tract symptoms; Constipation Allergies No known active allergiesdocumented as of this encounter (statuses as of 03/28/2023) Medications Medication Sig Dispensed Refills Start Date [...] B12 deficiency Take 1,000 mcg by mouth in the morning. 30 Tablet 11 03/28/2023 Active DULoxetine HCl 30 MG Oral Capsule Delayed Release Particles (Cymbalta)Indicati ons:Lumbar degenerative disc disease,Episode of recurrent major depressive disorder, unspecified depression episode severity (HCC) Take 1 Capsule by mouth in the morning. 30 Capsule 11 03/28/2023 Active Meclizine HCl 25 MG Oral Tablet ChewableIndication s:Vertigo Take 1 Tablet by mouth 2 times a day as needed for Dizziness. 30 Tablet 1 03/28/2023 Active Pravastatin Sodium 20 MG Oral Tablet (Pravachol)Indicat ions:Mixed dyslipidemia,PVC (premature ventricular contraction) Take 1 Tablet by mouth every evening. 30 Tablet 11 03/28/2023 Active Tamsulosin HCl 0.4 MG Oral Capsule (Flomax)Indication s:BPH with obstruction/lower urinary tract symptoms Take 1 Capsule by mouth in the morning and 1 Capsule in the evening. 60 Capsule 11 03/28/2023 Active Aspirin 81 MG Oral Tablet Delayed ReleaseIndications :Palpitations Take 1 Tablet by mouth in the morning. 30 Tablet 11 03/28/2023 Active Polyethylene Glycol 3350 17 GM Oral Packet (Miralax)Indicatio ns:Constipation Take 1 Packet by mouth in the morning. 30 Each 11 03/28/2023 Active B-12 1000 MCG Oral TabletIndications: B12 [...] as of this encounter (statuses as of 03/28/2023) Active Problems Problem Noted Date BPH with [...] as of this encounter (statuses as of 03/28/2023) Resolved Problems Problem Noted Date Resolved Date [...] as of this encounter (statuses as of 03/28/2023) Immunizations Name Administration Dates Next Due COVID-19 mRNA, LNP-s, No Pre serve, 2-Dose Series (Pfizer) 06/08/2021,11/09/2020,10/19/2020 Covid-19, Mrna, Lnp-s, Pf, B ivalent, 30 Mcg, IM, 12 yrs and above (Pfizer) 05/17/2022 DTaP - Dipth/Tet/Acell Pertussis 07/14/2009 PPD 03/28/2023 Pneumococcal Conjugate Vacc, 13 [...] encounter Miscellaneous Notes * Telephone Encounter - Elias Duarte DO - 03/28/2023 12:45 PM EDTSigned Prescriptions: Disp Refills B-12 1000 MCG Oral Tablet 30 Tab*11 Sig: Take 1,000 mcg by mouthin the morning.Authorizing Provider: ELIAS DUARET DULoxetine HCl 30 MG Oral Capsule Delayed *30 Cap*11 Sig: Take 1 Capsule by mouth in the morning.Authorizing Provider: ELIAS DUARTE Meclizine HCl 25 MG Oral Tablet Chewable 30 Tab*1 Sig: Take 1 Tablet by mouth 2 times aday as needed for Dizziness.Authorizing Provider: ELIAS DUARTE Pravastatin Sodium 20 MG Oral Tablet (Prav*30 Tab*11 Sig: Take 1 Tablet by mouth every evening.Authorizing Provider: ELIAS DUARTE Tamsulosin HCl 0.4 MG Oral Capsule (Flomax)60 Cap*11 Sig: Take 1 Capsule by mouth in the morningand 1 Capsule in the evening.Authorizing Provider: ELIAS DUARTE Aspirin 81 MG Oral Tablet Delayed Release 30 Tab*11 Sig: Take 1 Tablet by mouth in the morning.Authorizing Provider: ELIAS DAURTE Polyethylene Glycol 3350 17 GM Oral Packet*30 Each11 Sig: Take 1 Packet by mouth in the morning.Authorizing Provider: ELIAS DUARTE * Telephone Encounter - Maryjane Haji LPN - 03/28/2023 11:47 AM EDT Pt will be moving into assisted living on Saturday and needs new scripts sent to [facility]. Question on the Carbidopa-Levodopa I see 2 different orders for 25-100mg. Is pt to be taking the ERonce a day or the non ER 4 times a day. Did not pend either as not sure what one is correct. Elidia spoke with pt and he was not sure as to how he was to be taking the medication. documented in this encounter Plan of Treatment Upcoming Encounters Date Type Specialty Care Team Description 03/30/2023 Nurse Only Ancillary Wkend/Gw, Nurse Fam Prac [address] [place] [address] 05/07/2023 Office Visit Family Medicine Joseph Yoder MD [address] [place] [address] 05/27/2023 Hospital Encounter Endoscopy Enid John MD [address] [place] [address] 05/27/2023 Surgery Endoscopy Enid John MD [address] [place] [address] COLONOSCOPY FLEXIBLE PROXIMAL DIAGNOSTIC Scheduled Procedures Name Priority Associated Diagnoses Date/Ti me COLONOSCOPY FLEXIBLE PROXIMAL DIAGNOSTIC Recall History of colon polyps 05/27/2023 2:00 PM EST Health Maintenance Due Date Last Done Comments Depression Screening, Annual for Pts 12 and Over 02/07/2021 02/08/2020 Influenza Vaccine (FLU shot) (#1) [...] this encounter Medical Devices Implanted Type Area Icu Registered Nurse Device Identifier Shelf Expiration Date Model / Serial / Lot Lens Intraoc 20.0 - [id number] - [id number] Implanted:Qty: 1 on 09/26/2021 by Joni Moreno MD at OR [facility] Left: Eye BAUSCH & LOMB 04/20/2026 [id number] / [id number] / [id number] Lens Intraoc 20.0 - [id number] - [id number] Implanted:Qty: 1 on 10/10/2021 by Joni Moreno MD at OR [facility] Right: Eye BAUSCH & LOMB 05/21/2026 [id number] / [id number] / [id number] Sureclip 16mm 235cm - [id number] Implanted:Qty: 2 on 08/03/2022 by Enid John MD at ENDOSCOPY [facility] Colon MICRO TECH ENDOSCOPY 09/28/2024 [id number] / / documented as of this encounter Visit Diagnoses Diagnosis Palpitations- Primary B12 deficiency Other B-complex deficiencies Parkinson's disease (HCC) Paralysis agitans Lumbar degenerative disc disease Degeneration of lumbar or lumbosacral intervertebral disc Episode of recurrent major depressive disorder, unspecified depression episode severity (HCC) Vertigo Dizziness and giddiness Mixed dyslipidemia Mixed hyperlipidemia PVC (premature ventricular contraction) Other premature beats BPH with obstruction/lower urinary tract symptoms Hypertrophy of prostate with urinary obstruction and other lower urinary tract symptoms (LUTS) Constipation Unspecified constipation History of colon polyps Personal history of colonic polyps documented in this encounter Care Teams Recycling Worker Relationship Specialty Start Date End Date Elias Duarte DO [address] [place] [address] PCP - General Family Medicine 07/16/17 documented as of this encounter
--- OUTSIDE RECORDS SUMMARY | 2023-05-28 23:53 | External Medical Summary | Summary of Care ---
Author Name Unknown Organization [facility] Address [address] [facility] [address] Phone [phone] Care Team Providers Care Water Project Manager Name Role Phone Elias Duarte DO Primary Care Provider [phone] Reason for Visit * Reason Onset Date Comments TB Test Reading 03/30/2023 Encounter Details Date Type Department Care Team Description 03/30/2023 Nurse Only [facility]illary [facility] [address] [facility] [address] [facility] [address] [facility] [address] TB Test Reading Allergies No known active [...] mRNA, LNP-s, No Pre serve, 2-Dose Series ([employer]) 06/08/2021,11/09/2020,10/19/2020 Covid-19, Mrna, Lnp-s, Pf, B ivalent, [...] Medicine Joseph Yoder MD [address] [place] [address] 05/27/2023 Hospital Encounter Endoscopy Enid John MD [address] [place] [address] 05/27/2023 Surgery Endoscopy Enid John MD [address] [place] [address] COLONOSCOPY FLEXIBLE PROXIMAL DIAGNOSTIC Scheduled Procedures Name [...] this encounter Medical Devices Implanted Type Area Automobile Mechanic Radiator Device Identifier Shelf Expiration Date Model / Serial / Lot Lens Intraoc 20.0 - [id number] - [id number] Implanted:Qty: 1 on 09/26/2021 by Joni Moreno MD at OR [facility] Left: Eye BAUSCH & LOMB 04/20/2026 [id number] / [id number] / [id number] Lens Intraoc 20.0 - [id number] - [id number] Implanted:Qty: 1 on 10/10/2021 by Joni Moreno MD at OR [facility] Right: Eye BAUSCH & LOMB 05/21/2026 [id number] / [id number] / [id number] Sureclip 16mm 235cm - [id number] Implanted:Qty: 2 on 08/03/2022 by Enid John MD at ENDOSCOPY [facility] Colon MICRO TECH ENDOSCOPY 09/28/2024 [id number] / / documented as of this encounter Care Teams Water Project Manager Relationship Specialty Start Date End Date Elias Duarte DO [address] [place] [address] PCP - General Family Medicine 07/16/17 documented as of this encounter
--- OUTSIDE RECORDS SUMMARY | 2023-05-28 23:53 | External Medical Summary | Summary of Care ---
Author Name Unknown Organization [facility] Address [address] [facility] [place] [address] Phone [phone] Care Team Providers Care Craft Artist Name Role Phone Elias Duarte DO Primary Care Provider Reason for Visit * Reason Onset Date Comments Forms Request 03/19/2023 Encounter Details Date Type Department Care Team Description 03/19/2023 Telephone Family Practice [facility] [address] [place] [address] Elias Duarte DO [address] [place] [address] Forms Request Allergies No known active allergiesdocumented [...] mRNA, LNP-s, No Pre serve, 2-Dose Series ([employer]ributor) 06/08/2021,11/09/2020,10/19/2020 Covid-19, Mrna, Lnp-s, Pf, B ivalent, [...] encounter Miscellaneous Notes * Telephone Encounter - Lauryn Avery LPN [...] Form at my desk. Will fax to [facility] once covid test results are in Saturday. * Telephone Encounter - CARMEN Ross - 03/27/2023 3:20 PM EDT Relayed message [...] If can they be faxed back to [facility] * Telephone Encounter - CARMEN Sow - 03/26/2023 1:32 PM EDT Joseline from [facility] calling in to check on the status of previous message. Wanted to inform that the patient his sold house this weekend and [facility] is awaiting the DME paperwork for him move into the facility. Callback number for Joseline is [phone]. * Telephone Encounter - YOLI Szymanski - [...] CARMEN Mark - 03/19/2023 1:11 PM EDT [facility] calling stating that the PA that saw the pt last needs to fill out the paper work. Thanks * Telephone Encounter - Maryjane Haji LPN - 03/19/2023 1:04 PM EDT Provider to address: [place] Reason for Call: No chief complaint on file. Contact: Telephone Call Contact Type: Other: Form Outcome: Paperwork dropped off to our office today by [facility] for possible ambition to the facility. Pt [...] Nurse Only Ancillary Wkend/Gw, Nurse Fam Prac [facility] [place] [address] TB Test Reading 05/07/2023 Office Visit Family Medicine Joseph Yoder MD [address] [place] [address] 05/27/2023 Hospital Encounter Endoscopy Enid John MD [address] [place] [address] 05/27/2023 Surgery Endoscopy Enid John MD [address] [place] [address] COLONOSCOPY FLEXIBLE PROXIMAL DIAGNOSTIC Scheduled Procedures Name [...] this encounter Medical Devices Implanted Type Area Vendor Specialist Device Identifier Shelf Expiration Date Model / Serial / Lot Lens Intraoc 20.0 - [id number] - [id number] Implanted:Qty: 1 on 09/26/2021 by Joni Moreno MD at OR [facility] Left: Eye [employer]OM[employer] 04/20/2026 [id number] / [id number] / [id number] Lens Intraoc 20.0 - [id number] - [id number] Implanted:Qty: 1 on 10/10/2021 by Joni Moreno MD at OR [facility] Right: Eye [employer]OMB 05/21/2026 [id number] / [id number] / [id number] Sureclip 16mm 235cm - [id number] Implanted:Qty: 2 on 08/03/2022 by Enid John MD at ENDOSCOPY [facility] Colon MICRO TECH ENDOSCOPY 09/28/2024 [id number] / / documented as of this encounter Care Teams Craft Artist Relationship Specialty Start Date End Date Elias Duarte DO [address] [facility] [place] [address] PCP - General Family Medicine 07/16/17 documented as of this encounter
--- OUTSIDE RECORDS SUMMARY | 2023-05-28 23:53 | External Medical Summary | Summary of Care ---
Author Name Unknown Organization [facility] Address [address] [facility] [place] [address] Phone [phone] Care Team Providers Care Legal Administrative Assistant Name Role Phone Elias Duarte DO Primary Care Provider Reason for Visit * Reason Onset Date Comments Forms Request 03/19/2023 Encounter Details Date Type Department Care Team Description 03/19/2023 Telephone Family Practice [facility] [address] [place] [address] Elias Duarte DO [address] [place] [address] Forms Request Allergies No known active allergiesdocumented [...] mRNA, LNP-s, No Pre serve, 2-Dose Series ([employer]) 06/08/2021,11/09/2020,10/19/2020 Covid-19, Mrna, Lnp-s, Pf, B ivalent, [...] Form at my desk. Will fax to [facility] once covid test results are in [...] If can they be faxed back to [facility] * Telephone Encounter - CARMEN Sow - 03/26/2023 1:32 PM EDT Joseline from [facility] calling in to check on the status of previous message. Wanted to inform that the patient his sold house this weekend and [facility] is awaiting the DME paperwork for him move into the facility. Callback number for Joseline is [phone]. * Telephone Encounter - YOLI Szymanski - [...] CARMEN Mark - 03/19/2023 1:11 PM EDT [facility] calling stating that the PA that saw the pt last needs to fill out the paper work. Thanks * Telephone Encounter - Maryjane Haji LPN - 03/19/2023 1:04 PM EDT Provider to address: [place] Reason for Call: No chief complaint on file. Contact: Telephone Call Contact Type: Other: Form Outcome: Paperwork dropped off to our office today by [facility] for possible ambition to the facility. Pt [...] Yoder MD [address] [place] [address] 05/27/2023 Hospital Encounter Endoscopy Enid John MD [address] [place] [address] 05/27/2023 Surgery Endoscopy Enid John MD [address] [place] [address] COLONOSCOPY FLEXIBLE PROXIMAL DIAGNOSTIC Scheduled Procedures Name [...] this encounter Medical Devices Implanted Type Area Saddle And Side Wire Stitcher Device Identifier Shelf Expiration Date Model / Serial / Lot Lens Intraoc 20.0 - [id number] - [id number] Implanted:Qty: 1 on 09/26/2021 by Joni Moreno MD at OR [facility] Left: Eye BAUSCH [employer] LOMB 04/20/2026 [id number] / [id number] / [id number] Lens Intraoc 20.0 - [id number] - [id number] Implanted:Qty: 1 on 10/10/2021 by Joni Moreno MD at OR [facility] Right: Eye BAUSCH [employer] LOMB 05/21/2026 [id number] / [id number] / [id number] Sureclip 16mm 235cm - [id number] Implanted:Qty: 2 on 08/03/2022 by Enid John MD at ENDOSCOPY [facility] Colon MICRO TECH ENDOSCOPY 09/28/2024 [id number] / / documented as of this encounter Care Teams Legal Administrative Assistant Relationship Specialty Start Date End Date Elias Duarte DO [address] [place] [address] PCP - General Family Medicine 07/16/17 documented as of this encounter
--- OUTSIDE RECORDS SUMMARY | 2023-05-28 23:54 | External Medical Summary ---
Author Name Unknown Address Unknown Organization [facility] [place] [address] [place] [address] Laboratory Report Ordering Provider Test Date Status NINFA BLOUNT 01/01/2023 14:10:59 Final Observation Date Value Abnormality Reference (Units ) Status WBC, Total 01/01/2023 14:10:59 6.33 4.00-10.8 0 (K/uL) Final RBC 01/01/2023 14:10:59 4.75 4.50-5.25 (M/uL) Final Hemoglobin 01/01/2023 14:10:59 15.3 14.0-16.8 (g/dL) Final HCT 01/01/2023 14:10:59 45.0 40.0-48.4 (%) Final MCV 01/01/2023 14:10:59 94.7 82.0-99.5 (fL) Final MCH 01/01/2023 14:10:59 32.2 27.0-34.0 (pg) Final MCHC 01/01/2023 14:10:59 34.0 32.0-36.0 (g/dL) Final RDW 01/01/2023 14:10:59 12.2 11.5-15.5 (%) Final Platelets 01/01/2023 14:10:59 190 140-400 (K /uL) Final MPV 01/01/2023 14:10:59 10.2 6.6-11.1 ( fL) Final Performing Location [facility] [place] [facility] - [address] [place] [address]
--- OUTSIDE RECORDS SUMMARY | 2023-05-28 23:54 | External Medical Summary | Summary of Care ---
Author Name Unknown Organization [facility] Address [address] [place] [address] Phone [phone] Care Team Providers Care Sheriff Sergeant Name Role Phone Elias Duarte DO Primary Care Provider [phone] Reason for Visit * Reason Comments Outpatient Testing Encounter Details Date Type Department Care Team Description 03/14/2023 Laboratory Laboratory, [facility] [address] [place] [address] [facility] [address] [place] [address] BPH with obstruction/lower urinary tract symptoms Allergies No known active allergiesdocumented as of this encounter (statuses as of 03/14/2023) Medications Medication Sig Dispensed Refills Start Date End Date Status B-12 1000 MCG Oral TabletIndications:B1 2 deficiency Take 1,000 mcg by mouth daily. 90 Tab 1 08/16/2020 Active Aspirin 81 MG Oral Tablet Delayed Release Take 1 Tablet by mouth in the morning. 0 Active Polyethylene Glycol 3350 17 GM Oral Packet (Miralax) Take 1 Packet by mouth in the morning. 0 Active Carbidopa-Levodopa ER 25-100 MG Oral Tablet Extended Release (Sinemet CR)Indications:Parki nson's disease (HCC) TAKE 1 TABLET BY MOUTH BEFORE BEDTIME 90 Tablet 1 08/28/2022 08/28/2023 Active Pravastatin Sodium 20 MG Oral Tablet (Pravachol)Indicatio ns:Mixed dyslipidemia,PVC (premature ventricular contraction) Take 1 Tablet by mouth every evening. 90 Tablet 3 08/29/2022 Active DULoxetine HCl 30 MG Oral Capsule Delayed Release Particles (Cymbalta)Indication s:Lumbar degenerative disc disease,Episode of recurrent major depressive disorder, unspecified depression episode severity (HCC) TAKE ONE CAPSULE BY MOUTH DAILY DO NOT CRUSH CUT OR CHEW 90 Capsule 0 12/24/2022 12/24/2023 Active Carbidopa-Levodopa 25-100 MG Oral Tablet Take 1 Tablet by mouth in the morning and 1 Tablet at noon and 1 Tablet in the evening and 1 Tablet before bedtime. 0 Active Meclizine HCl 25 MG Oral Tablet ChewableIndications: Vertigo chew 1 Tablet by mouth 2 times a day as needed for Dizziness. 30 Tablet 1 03/14/2023 Active Tamsulosin HCl 0.4 MG Oral Capsule (Flomax)Indications: BPH with obstruction/lower urinary tract symptoms Take 1 Capsule by mouth in the morning and 1 Capsule in the evening. 180 Capsule 0 03/14/2023 06/12/2023 Active documented as of this encounter (statuses as of 03/14/2023) Active Problems Problem Noted Date BPH with [...] as of this encounter (statuses as of 03/14/2023) Resolved Problems Problem Noted Date Resolved Date [...] as of this encounter (statuses as of 03/14/2023) Immunizations Name Administration Dates Next Due COVID-19 mRNA, LNP-s, No Pre serve, 2-Dose Series ([employer]) 06/08/2021,11/09/2020,10/19/2020 Covid-19, Mrna, Lnp-s, Pf, B ivalent, 30 Mcg, IM, 12 yrs and above (Pfizer) 05/17/2022 DTaP - Dipth/Tet/Acell Pertussis 07/14/2009 Pneumococcal Conjugate Vacc, 13 Valent (Prevnar) 03/06/2016 [...] on file documented as of this encounter Plan of Treatment Upcoming Encounters Date Type Specialty Care Team Description 05/07/2023 Office Visit Family Medicine Joseph Yoder MD [address] [place] [address] 05/27/2023 Hospital Encounter Endoscopy Enid John MD [address] [place] [address] 05/27/2023 Surgery Endoscopy Enid John MD [address] [place] [address] COLONOSCOPY FLEXIBLE PROXIMAL DIAGNOSTIC Pending Results Name Type Priority Associated Diagnoses Date /Time PSA Lab Routine BPH with obstruction/lower urinary tract symptoms 03/14/2023 3:44 PM EDT Scheduled Procedures Name Priority Associated Diagnoses Date/Ti [...] this encounter Medical Devices Implanted Type Area Rotary Rock Drilling Machine Operator Device Identifier Shelf Expiration Date Model / Serial / Lot Lens Intraoc 20.0 - [id number] - [id number] Implanted:Qty: 1 on 09/26/2021 by Joni Moreno MD at OR [facility] Left: Eye BAUSCH & LOMB 04/20/2026 [id number] / [id number] / [id number] Lens Intraoc 20.0 - [id number] - [id number] Implanted:Qty: 1 on 10/10/2021 by Joni Moreno MD at OR [facility] Right: Eye BAUSCH & LOMB 05/21/2026 [id number] / [id number] / [id number] Sureclip 16mm 235cm - [id number] Implanted:Qty: 2 on 08/03/2022 by Enid John MD at ENDOSCOPY [facility] Colon MICRO TECH ENDOSCOPY 09/28/2024 [id number] / / documented as of this encounter Visit Diagnoses Diagnosis BPH with obstruction/lower urinary tract symptoms Hypertrophy of prostate with urinary obstruction and other lower urinary tract symptoms (LUTS) History of colon polyps Personal history of colonic polyps documented in this encounter Care Teams Sheriff Sergeant Relationship Specialty Start Date End Date Elias Duarte DO [address] [place] [address] PCP - General Family Medicine 07/16/17 documented as of this encounter
--- OUTSIDE RECORDS SUMMARY | 2023-05-28 23:54 | External Medical Summary | Summary of Care ---
Author Name Unknown Organization [facility] Address [address] [place] [address] Phone [phone] Care Team Providers Care Regulatory And Compliance Technician Name Role Phone Pam Duarte DO Primary Care Provider [phone] Reason for Visit * Reason Comments Follow Up Encounter Details Date Type Department Care Team Description 01/01/2023 Office Visit [facility] [address] [facility] [address] [facility] [address] [facility] [address] PVC (premature ventricular contraction)* Allergies No known active allergiesdocumented as of this encounter (statuses as of 01/01/2023) Medications Medication Sig Dispensed Refills Start Date End Date Status B-12 1000 MCG Oral TabletIndications: B12 deficiency Take 1,000 mcg by mouth daily. 90 Tab 1 08/16/2020 Active Aspirin 81 MG Oral Tablet Delayed Release Take 1 Tablet by mouth in the morning. 0 Active Polyethylene Glycol 3350 17 GM Oral Packet (Miralax) Take 1 Packet by mouth in the morning. 0 Active Metoprolol Succinate ER 25 MG Oral Tablet Extended Release 24 Hour (toPROL XL)Indications:Sym ptomatic PVCs TAKE 1 TABLET BY MOUTH DAILY 90 Tablet 3 02/15/2022 Active Meclizine HCl 25 MG Oral Tablet Chewable TAKE 1 TABLET BY MOUTH NEEDED IN THE MORNING, TAKE 1 TABLET NEEDED AT NOON AND TAKE 1 TABLET NEEDED IN THE EVENING FOR DIZZINESS 30 Tablet 1 02/12/2022 07/25/202 3 Active Tamsulosin HCl 0.4 MG Oral Capsule (Flomax)Indication s:BPH with obstruction/lower urinary tract symptoms TAKE ONE CAPSULE BY MOUTH AT BEDTIME 90 Capsule 1 08/29/2022 4 Active Carbidopa-Levodopa ER 25-100 MG Oral Tablet Extended Release (Sinemet CR)Indications:Par kinson's disease (HCC) TAKE 1 TABLET BY MOUTH BEFORE BEDTIME 90 Tablet 1 08/28/2022 4 Active Pravastatin Sodium 20 MG Oral Tablet (Pravachol)Indicat ions:Mixed dyslipidemia,PVC (premature ventricular contraction) Take 1 Tablet by mouth every evening. 90 Tablet 3 08/29/2022 Active Meclizine HCl 25 MG Oral Tablet Chewable CHEW ONE TABLET BY MOUTH NEEDED IN THE MORNING AND ONE TABLET NEEDED AT NOON AND ONE TABLET NEEDED IN THE EVENING FOR DIZZINESS 30 Tablet 1 11/05/2022 4 Active DULoxetine HCl 30 MG Oral Capsule Delayed Release Particles (Cymbalta)Indicati ons:Lumbar degenerative disc disease,Episode of recurrent major depressive disorder, unspecified depression episode severity (HCC) TAKE ONE CAPSULE BY MOUTH DAILY DO NOT CRUSH CUT OR CHEW 90 Capsule 0 12/24/2022 4 Active Carbidopa-Levodopa 25-100 MG Oral Tablet (Sinemet) Take 1 Tablet by mouth in the morning and 1 Tablet at noon and 1 Tablet in the evening and 1 Tablet before bedtime. 0 Active Bisacodyl 10 MG Rectal Suppository Administer into the rectum 10 mg daily as needed . 0 3 Discontinue d(Patient preference/ discontinua tion) documented as of this encounter (statuses as of 01/01/2023) Active Problems Problem Noted Date BPH with [...] as of this encounter (statuses as of 01/01/2023) Resolved Problems Problem Noted Date Resolved Date [...] as of this encounter (statuses as of 01/01/2023) Immunizations Name Administration Dates Next Due COVID-19 mRNA, LNP-s, No Pre serve, 2-Dose Series ([employer]) 06/08/2021,11/09/2020,10/19/2020 Covid-19, Mrna, Lnp-s, Pf, B ivalent, 30 Mcg, IM, 12 yrs and above ([employer]) 05/17/2022 DTaP - Dipth/Tet/Acell Pertussis 07/14/2009 Pneumococcal Conjugate Vacc, 13 Valent (Prevnar) 03/06/2016 Pneumococcal Polysaccharide PPV23 (Pneumovax) 08/19/2013 Seasonal Influenza, Quadriva lent Hd (Fluzone Hd) 05/17/2022 Seasonal Influenza, Quadriva lent, No Preserve, 6 Mons & Above, IM 04/04/2021,06/19/2018,07/23/2017 Seasonal Influenza, Quadriva lent, No Preserve, Adjuvanted, 65+ Yrs, IM 05/05/2020 Seasonal Influenza, Quadriva lent, No Preserve, IM [...] 12 Q uit: 07/22/1974 Smokeless Tobacco: Never Tobacco Cessation:Counseling Given: Not Answered Alcohol Use Standard Drinks/Week Comments No 0 [...] on file documented as of this encounter Last Filed Vital Signs Vital Sign Reading Time Taken Comments Blood Pressure 116/72 01/01/2023 1:24 PM EDT Pulse 78 01/01/2023 1:24 PM EDT Temperature - - Respiratory Rate 16 01/01/2023 1:24 PM EDT Oxygen Saturation 99% 01/01/2023 1:24 PM EDT Inhaled Oxygen Concentration - - Weight 73 kg (160 lb 14.4 oz) 01/01/2023 1:24 PM EDT Height - - Body Mass Index 23.75 08/03/2022 10:46 AM EST documented in this encounter Progress Notes * Kings Camargo MD - 01/01/2023 1:40 PM EDT January 01, 2023 Cardiology Follow Up Referring Provider: PCP: [place] [address] [phone] Chief Complaint: Routine followup, chronic ventricular ectopy SUBJECTIVE: Jacques Alicea is a 71 year old year old male past medical history 1. Chronic ventricular ectopy 2. Dyslipidemia 3. Remote history of sarcoidosis greater than 30 years past without evidence of recurrence 4. Parkinsonism Patient presents today in routine followup. Any acute cardiac complaints. Does note significant progression in parkinsonism and gait instability. No falls or injuries. He is not aware of any tachy palpitations feels occasional palpitations. No fevers chills or unexplained infections. No bleeding dif ficulties. A Complete Review of Systems is as stated above or negative. Patient Active Problem List Diagnosis Code Mixed dyslipidemia E78.2 Sarcoidosis of lung ([facility]) D86.0 Routine medical exam Z00.00 Special screening for malignant neoplasms, colon Z12.11 Need for prophylactic vaccination against Streptococcus pneumoniae (pneumococcus) Z23 Irritable bowel syndrome with constipation K58.1 PVC (premature ventricular contraction) I49.3 Dizziness R42 Palpitations R00.2 Episode of recurrent major depressive disorder ([facility]) F33.9 Parkinson's disease ([facility]) G20 Lumbar degenerative disc disease M51.36 BPH with obstruction/lower urinary tract symptoms N40.1, N13.8 Review of patient's allergies indicates: No Known Allergies Current Outpatient Medications Medication Sig Dispense Refill B-12 1000 MCG Oral Tablet Take 1,000 mcg by mouth daily. 90 Tab 1 Aspirin 81 MG Oral Tablet Delayed Release Take 1 Tablet by mouth in the morning. Polyethylene Glycol 3350 17 GM Oral Packet (Miralax) Take 1 Packet by mouth in the morning. Metoprolol Succinate ER 25 MG Oral Tablet Extended Release 24 Hour (toPROL XL) TAKE 1 TABLET BYMOUTH DAILY 90 Tablet 3 Meclizine HCl 25 MG Oral Tablet Chewable TAKE 1 TABLET BY MOUTH NEEDED IN THE MORNING, TAKE 1 TABLET NEEDED AT NOON AND TAKE 1 TABLET NEEDED IN THE EVENING FOR DIZZINESS 30 Tablet 1 Tamsulosin HCl 0.4 MG Oral Capsule (Flomax) TAKE ONE CAPSULE BY MOUTH AT BEDTIME 90 Capsule 1 Carbidopa-Levodopa ER 25-100 MG Oral Tablet Extended Release (Sinemet CR) TAKE 1 TABLET BY MOUTH BEFORE BEDTIME 90 Tablet 1 Pravastatin Sodium 20 MG Oral Tablet (Pravachol) Take 1 Tablet by mouth every evening. 90 Tablet 3 Meclizine HCl 25 MG Oral Tablet Chewable CHEW ONE TABLET BY MOUTH NEEDED IN THE MORNING AND ONE TABLET NEEDED AT NOON AND ONE TABLET NEEDED IN THE EVENING FOR DIZZINESS 30 Tablet 1 DULoxetine HCl 30 MG Oral Capsule Delayed Release Particles (Cymbalta) TAKE ONE CAPSULE BY MOUTH DAILY DO NOT CRUSH CUT OR CHEW 90 Capsule 0 Carbidopa-Levodopa 25-100 MG Oral Tablet (Sinemet) Take 1 Tablet by mouth in the morning and 1 Tablet at noon and 1 Tablet in the evening and 1 Tablet before bedtime. No current facility-administered medications for this visit. OBJECTIVE/PHYSICAL EXAMINATION: BP 116/72 (BP Site: Left Arm, BP Position: Sitting, BP Cuff Size: Regular) | Pulse 78 | Resp 16 | Wt 73 kg (160 lb 14.4 oz) | SpO2 99% | BMI 23.75 kg/m | BSA 1.89 m General: no acute distress and stated age Head: normocephalic, no masses, lesions, tenderness or abnormalities Eyes: conjunctiva are pink and non-injected, sclera clear Throat: clear Nares: without discharge Neck: supple, no adenopathy, no bruits, normal jugular venous pulse, no hepatojugular reflux, no carotid bruits Chest: normal shape and normal respiratory effort Lungs: clear to auscultation and percussion Cardiac Exam: - regular rate & rhythm, no murmurs gallops or rubs - normal S-1, normal S-2 rareventricular ectopic beat audible Pulses: 2(+) throughout Abdomen: abdomen soft, non-tender, no abnormal masses, no hepatosplenomegaly, no abdominal bruit, no femoral bruit Musculoskeletal: no gait disturbance, no joint inflammation, no deforming arthritis Extremities: no edema, no cyanosis, pulses intact 2+/4 Neuro: Parkinsonian tremor Data: EKG performed, January 01, 2023 , and reviewed personally : Sinus rhythm rate of 83 with occasional ventricular ectopic beats otherwise normal tracing Stress nuclear imaging December 02, 2020 Myocardial perfusion imaging is normal. Overall left ventricular systolic function was normal without regional wall motion abnormalities. The left ventricular ejection fraction was 63%. There are no prior studies available for comparison. Frequent PVCs at rest and during examination. Echocardiogram December 02, 2020 Normal LV chamber size and wall thickness. Normal LV systolic function without regional wall motion abnormality. Calculated LV ejection Fraction = 61% (bi-plane method of discs). Normal diastolic function. No significant valvular pathology. ASSESSMENT: 72 year old year old male Followed for history of are chronic ventricular ectopy and cardiac risk factors of dyslipidemia, remote quiescent sarcoidosis. Cardiac status appears stable still with chronic ventricular ectopy but asymptomatic PLAN: Continue current therapies. Discussed orthostasis association with Parkinson's therapies CBC BMP today Continue follow-up with neurology DISPOSITION: Routine followup scheduled 6 months time MD Ashish Weberer Cardiology, [facility] [address] [place] [address] I spent a total of 30-39 minutes (exact time 30 mins) on the date of service in preparation, delivery, and documentation of the care provided to Jacques Alicea excluding any time spent in the performance of separately billed services. documented in this encounter Nursing Notes * Margaret Oquendo CMA - 01/01/2023 1:33 PM EDT Examination Room: 14 Name: Jacques Alicea Date of : (1950). Reason for Visit: f/u, last seen Mar 2021 Interim Hospitalization(s): none Problems/Concerns: Reports worsening dizziness, no falls. Utilizing meclizine prn. LE edema, wearing support stockings. Chest Pain/SOB: [facility] Discussed: Not applicable [facility] is a way you can talk to your provider online through e-mail. Would you like to sign up? I can activate it for you? ALREADY ACTIVE Patient was instructed to not get up on the exam table until directed and assisted by their provider; patient is to remain seated in the chair/ wheelchair/ exam table for fall prevention and safety reasons. Patient is aware to have assistance to step down off exam table with personnel. Patient voiced full comprehension of instructions. documented in this encounter Plan of Treatment Upcoming Encounters Date Type Specialty Care Team Description 02/05/2023 Hospital Encounter Endoscopy Marcus Johnson, DO [address] [place] [address] 02/05/2023 Surgery Endoscopy Marcus Johnson, DO [address] [place] [address] COLONOSCOPY FLEXIBLE PROXIMAL DIAGNOSTIC Scheduled Orders Name Type Priority Associated Diagnoses Orde r Schedule EKG EKG Routine PVC (premature ventricular contraction) Ordered: 01/01/2023 Scheduled Procedures Name Priority Associated Diagnoses Date/Ti me COLONOSCOPY FLEXIBLE PROXIMAL DIAGNOSTIC Recall History of colon polyps 02/05/2023 8:00 AM EDT Health Maintenance Due Date Last Done Comments Depression Screening, Annual for Pts 12 and Over 02/07/2021 02/08/2020 COLONOSCOPY-ANNUAL AGES 18-100 08/03/2023 08/03/2022, 08/03/2022, 03/08/2020, Additional history exists DTaP,Tdap,and Td Vaccines (3 - Td or Tdap) 02/13/2024 02/12/2014, 07/14/2009 Lipid Panel 08/15/2025 08/15/2020, 01/20, 08/18/2018, Additional history exists Pneumococcal Vaccine: 65+ Years Completed 03/06/2016, 08/19/2013 ABDOMINAL AORTIC ANEURYSM (AAA) SCREENING Completed 07/25/2017 Zoster Vaccines Completed 02/08/2020, 07/22, 02/12/2014 COVID-19 Vaccine Completed 05/17/2022, , 11/09/2020, Additional history exists Influenza Vaccine (FLU shot) Completed 05/17/2022, 04/04/2021, 05/05/2020, Additional history exists COLONOSCOPY-EVERY 3 YRS AGES [...] this encounter Medical Devices Implanted Type Area Stringer Machine Tender Device Identifier Shelf Expiration Date Model / Serial / Lot Lens Intraoc 20.0 - [id number] - [id number] Implanted:Qty: 1 on 09/26/2021 by Joni Moreno MD at OR [facility] Left: Eye [employer] 04/20/2026 [id number] / [id number] / [id number] Lens Intraoc 20.0 - [id number] - [id number] Implanted:Qty: 1 on 10/10/2021 by Joni Moreno MD at OR [facility] Right: Eye [employer] 05/21/2026 [id number] / [id number] / [id number] Sureclip 16mm 235cm - [id number] Implanted:Qty: 2 on 08/03/2022 by Enid John MD at ENDOSCOPY [facility] Colon MICRO TECH ENDOSCOPY 09/28/2024 [id number] / documented as of this encounter Procedures Procedure Name Priority Date/Time Associated Diagnosis Comments DIFFERENTIAL, AUTOMATED Routine 01/01/2023 2:10 PM EDT PVC (premature ventricular contraction) BASIC METABOLIC PANEL Routine 01/01/2023 2:10 PM EDT PVC (premature ventricular contraction) CBC WITH WBC DIFFERENTIAL Routine 01/01/2023 2:10 PM EDT PVC (premature ventricular contraction) CBC Routine 01/01/2023 2:10 PM EDT PVC (premature ventricular contraction) documented in this encounter Results * (ABNORMAL) DIFFERENTIAL, AUTOMATED (01/01/2023 2:10 PM EDT) WBC 6.33 4.00 - 10.80 K/uL 01/01/2023 2:25 PM EDT [facility] Neutrophils % 63.9 40.0 - 75.0 % 01/01/2023 2:25 PM EDT [facility] Lymphocytes % 22.0 18.0 - 42.0 % 01/01/2023 2:25 PM EDT [facility] Monocytes % 11.4(H) 1.0 - 11.0 % 01/01/2023 2:25 PM EDT [facility] Eosinophils % 2.4 0.0 - 6.0 % 01/01/2023 2:25 PM EDT [facility] Basophils % 0.3 0.0 - 2.0 % 01/01/2023 2:25 PM EDT [facility] Absolute Neutrophils 4.05 1.80 - 7.70 K/uL 01/01/2023 2:25 PM EDT [facility] Absolute Lymphocytes 1.39 1.00 - 4.80 K/ul 01/01/2023 2:25 PM EDT [facility] Absolute Monocytes 0.72 0.00 - 1.10 K/uL 01/01/2023 2:25 PM EDT [facility] Absolute Eosinophils 0.15 0.00 - 0.70 K/uL 01/01/2023 2:25 PM EDT [facility] Absolute Basophils 0.02 0.00 - 0.20 K/uL 01/01/2023 2:25 PM EDT [facility] Blood Venous blood specimen / Unknown Venipuncture / Unknown 01/01/2023 2:10 PM EDT 01/01/2023 2:11 PM EDT Kings Camargo MD LAB BLOOD ORDERABLES [facility] [address] [place] [id number] * CBC (01/01/2023 2:10 PM EDT) WBC 6.33 4.00 - 10.80 K/uL 01/01/2023 2:25 PM EDT [facility] RBC 4.75 4.50 - 5.25 M/uL 01/01/2023 2:25 PM EDT [facility] HGB 15.3 14.0 - 16.8 g/dL 01/01/2023 2:25 PM EDT [facility] HCT 45.0 40.0 - 48.4 % 01/01/2023 2:25 PM EDT [facility] MCV 94.7 82.0 - 99.5 fL 01/01/2023 2:25 PM EDT [facility] [place] MCH 32.2 27.0 - 34.0 pg 01/01/2023 2:25 PM EDT [facility] [place] MCHC 34.0 32.0 - 36.0 g/dL 01/01/2023 2:25 PM EDT [facility] [place]10 RDW 12.2 11.5 - 15.5 % 01/01/2023 2:25 PM EDT [facility] [place]10 PLT 190 140 - 400 K/uL 01/01/2023 2:25 PM EDT [facility] [place]10 MPV 10.2 6.6 - 11.1 fL 01/01/2023 2:25 PM EDT [facility] [place]10 Blood Venous blood specimen / Unknown Venipuncture / Unknown 01/01/2023 2:10 PM EDT 01/01/2023 2:11 PM EDT Kings Camargo MD LAB BLOOD ORDERABLES [facility] [place] [address] [place] [address] * BASIC METABOLIC PANEL (01/01/2023 2:10 PM EDT) BUN 19 6 - 20 mg/dL 01/01/2023 3:13 PM EDT [facility] [place]10 Creatinine 1.0 0.6 - 1.2 mg/dL 01/01/2023 3:13 PM EDT [facility] [place]10 Estimated Glomerular Filtration Rate 75 >=60 mL/min 01/01/2023 3:13 PM EDT [facility] [place]10 Comment:eGFR is calculated b ased on the CKD-EPI 2020 equation Sodium 143 135 - 146 mmol/L 01/01/2023 3:13 PM EDT [facility] [place]10 Potassium 4.6 3.5 - 5.1 mmol/L 01/01/2023 3:13 PM EDT [facility] Chloride 106 98 - 107 mmol/L 01/01/2023 3:13 PM EDT [facility] CO2 27 22 - 32 mmol/L 01/01/2023 3:13 PM EDT [facility] Anion Gap 10 7 - 15 mmol/L 01/01/2023 3:13 PM EDT [facility]10 Glucose 98 70 - 120 mg/dL 01/01/2023 3:13 PM EDT [facility] Calcium 9.6 8.4 - 10.2 mg/dL 01/01/2023 3:13 PM EDT [facility] Blood Venous blood specimen / Unknown Venipuncture / Unknown 01/01/2023 2:10 PM EDT 01/01/2023 2:11 PM EDT Kings Camargo MD LAB BLOOD ORDERABLES Performing Organization Address City/State/[facility] Co de Phone Number [facility] [address] [place] [address] documented in this encounter Visit Diagnoses Diagnosis PVC (premature ventricular contraction)- Primary Other premature beats History of colon polyps Personal history of colonic polyps documented in this encounter Care Teams Regulatory And Compliance Technician Relationship Specialty Start Date End Date Pam Duarte DO [address] [place] [address] PCP - General Family Medicine 07/16/17 documented as of this encounter"
--- OUTSIDE RECORDS SUMMARY | 2023-05-28 23:54 | External Medical Summary | Summary of Care ---
Author Name Unknown Organization [facility] Address [address] [place] [facility] [place] [place] [address] Phone [phone] Care Team Providers Care Ship Yard Electrical Person Name Role Phone Elias Duarte DO Primary Care Provider + [phone] Reason for Visit * Reason Onset Date Comments Physical-Exam Patient [facility] - patient states he has a 20 page form, but forgot to bring it; states he will bring it in next week Ear Flush 03/14/2023 Encounter Details Date Type Department Care Team Description 03/14/2023 Office Visit Family Practice [facility] [address] [place] [address] Darío Marshall CRNP [address] [place] [address] Vertigo*; Parkinson's disease (HCC); Urinary incontinence, nocturnal enuresis; BPH with obstruction/lower urinary tract symptoms; Impacted cerumen, right ear Allergies No known active allergiesdocumented as of [...] 4 Active Carbidopa-Levodopa 25-100 MG Oral Tablet Take [...] in the evening. 180 Capsule 0 03/14/2023 3 Active Tamsulosin HCl 0.4 MG Oral Capsule (Flomax)Indication s:BPH with obstruction/lower urinary tract symptoms TAKE ONE CAPSULE BY MOUTH AT BEDTIME 90 Capsule 1 08/29/2022 3 Discontinue d(Refill) Meclizine HCl 25 MG Oral Tablet Chewable CHEW ONE TABLET BY MOUTH NEEDED IN THE MORNING AND ONE TABLET NEEDED AT NOON AND ONE TABLET NEEDED IN THE EVENING FOR DIZZINESS 30 Tablet 1 11/05/2022 3 Discontinue d(Refill) documented as of this encounter [...] mRNA, LNP-s, No Pre serve, 2-Dose Series ([employer]) 06/08/2021,11/09/2020,10/19/2020 Covid-19, Mrna, Lnp-s, Pf, B ivalent, [...] Sign Reading Time Taken Comments Blood Pressure 110/70 03/14/2023 2:40 PM EDT Pulse 68 03/14/2023 2:40 PM EDT Temperature 36.3 C (97.3 F) 03/14/2023 2:40 PM ED T Respiratory Rate 16 03/14/2023 2:40 PM EDT Oxygen Saturation - - Inhaled Oxygen Concentration - - Weight 68.3 kg (150 lb 8 oz) 03/14/2023 2:40 PM EDT Height 169.5 cm (5' 6.73") 03/14/2023 2:40 PM ED T Body Mass Index 23.76 03/14/2023 2:40 PM EDT documented in this encounter Progress Notes * Gil Adam RN - 03/14/2023 3:15 PM EDT Ear Irrigation Procedure: Irrigation Solution: Up to 200 ml of solution may be instilled with one Procedure Solution Used: Water 180 ml/ Hydrogen Peroxide 20 ml (Mixed) Ear(s) Irrigated: Right Response: Particulate Returned, Patient Tolerated Well, and small amount of cerumen still noted in ear after flushing. Darío notified and was in to see patient. Gil Adam RN * YOLI Szymanski - 03/14/2023 2:46 PM EDT Images from the original note were not included. Follow up Family Medicine Visit History of Present Illness Jacques Alicea is a very pleasant 73 year old male with PMH listed below presenting with physical exam. Going into [facility]. Needs documentation but he is not done with his part. He has been more dizzy. Denies SOB or chest pain. F/u with cardiology. Meclizine worked well for him. Requesting refill. Parkinson -- taking carbidopa/levodopa, has not followed up with neurology recently. Mood has been well controlled with Cymbalta. Has been taking Flomax 0.4 mg several years. Incontinence of urine at night and sometimes during the day. Can' tell if emptying his bladder completely. Sometimes increase frequency. Sometimes standing up causing him to have urinary incontinence. He is not drinking water due to urinary incontinence. Constipation controlled with Miralax. Mood stable with duloxetine. Social History Socioeconomic History Marital status: Spouse name: Not on file Number of children: Not on file Years of education: Not on file Highest education level: Not on file Occupational History Comment: retired Tobacco Use Smoking status: Former Packs/day: 1.00 Years: 12.00 Pack years: 12.00 Types: Cigarettes Quit date: 07/22/1974 Years since quittin.6 Smokeless tobacco: Never Vaping Use Vaping Use: Never used Substance and Sexual Activity Alcohol use: No Drug use: No Sexual activity: Never Comment: 3 children Other Topics Concern Not on file Social History Narrative Not on file Social Determinants of Health Financial Resource Strain: Not on file Food Insecurity: Not on file Transportation Needs: Not on file Physical Activity: Not on file Stress: Not on file Social Connections: Not on file Intimate Partner Violence: Not on file Housing Stability: Not on file PMH: Past Medical History: Diagnosis Date Benign neoplasm of colon 04/27/10 2 polyps tubulovillous adenomas--repeat in 6 month Benign neoplasm of colon 11/20/10 diverticulosis, post polypectomy scar found at tatoo site in sigmoid and ascending colon, polyps x 3--adenomatous tissue --repeat in one yr Impaired fasting glucose Mixed dyslipidemia Sarcoidosis of lung (HCC) ? dx 30 yrs ago but recent cxr normal Stress reaction, emotional hx of depression/ anxiety prior on meds Past Surgical History: Procedure Laterality Date COLONOSCOPY W/ LESION REMOVAL, SNARE 11/20/2010 diverticulosis, post polypectomy scar found at tatoo site in sigmoid and ascending colon, polyps x 3--adenomatous tissue --repeat in one yr COLONOSCOPY, DIAGNOSTIC (RECTUM) 10/09/2012 COLONOSCOPY FLEXIBLE PROXIMAL DIAGNOSTIC performed by Dale Whitlock MD at ENDOSCOPY [facility] COLONOSCOPY, DIAGNOSTIC (RECTUM) 12/28/2015 adenomatous polyp, diverticulosis, repeat 3 yrs/COLONOSCOPY FLEXIBLE PROXIMAL DIAGNOSTIC performed by Enid John MD at ENDOSCOPY [facility] COLONOSCOPY, DIAGNOSTIC (RECTUM) 03/08/2020 adenomatous polyps, diverticulosis, repeat 1 yr / COLONOSCOPY FLEXIBLE PROXIMAL DIAGNOSTIC performed by Enid John MD at ENDOSCOPY [facility] COLONOSCOPY, DIAGNOSTIC (RECTUM) 08/03/2022 benign adenomatous polyps, repeat 6 mo / COLONOSCOPY FLEXIBLE PROXIMAL DIAGNOSTIC performed by Enid John MD at ENDOSCOPY [facility] COLONOSCOPY/REMOVE LESION 04/27/2010 2 polyps tubulovillous adenomas--repeat in 6 months INFORMATION right foot surgery for plantar fascitis REMOVE CATARACT, INSERT LENS PROSTH Left 09/26/2021 LEFT EXTRACAPSULAR CATARACT REMOVAL WITH INTRAOCULAR LENS performed by Joni Moreno MD at [facility] REMOVE CATARACT, INSERT LENS PROSTH Right 10/10/2021 Right EXTRACAPSULAR CATARACT REMOVAL WITH INTRAOCULAR LENS performed by Joni Moreno MD at [facility] REMOVE TONSILS & ADENOIDS, UNDER 12 Outpatient Medications Marked as Taking for the 03/14/23 encounter (Office Visit) with YOLI Szymanski Medication Sig Meclizine HCl 25 MG Oral Tablet Chewable Take 1 Tablet by mouth 2 times a day as needed for Dizziness. Carbidopa-Levodopa 25-100 MG Oral Tablet Take 1 Tablet by mouth in the morning and 1 Tablet at noonand 1 Tablet in the evening and 1 Tablet before bedtime. DULoxetine HCl 30 MG Oral Capsule Delayed Release Particles (Cymbalta) TAKE ONE CAPSULE BY MOUTH DAILY DO NOT CRUSH CUT OR CHEW Pravastatin Sodium 20 MG Oral Tablet (Pravachol) Take 1 Tablet by mouth every evening. Tamsulosin HCl 0.4 MG Oral Capsule (Flomax) TAKE ONE CAPSULE BY MOUTH AT BEDTIME Carbidopa-Levodopa ER 25-100 MG Oral Tablet Extended Release (Sinemet CR) TAKE 1 TABLET BY MOUTH BEFORE BEDTIME Polyethylene Glycol 3350 17 GM Oral Packet (Miralax) Take 1 Packet by mouth in the morning. Aspirin 81 MG Oral Tablet Delayed Release Take 1 Tablet by mouth in the morning. B-12 1000 MCG Oral Tablet Take 1,000 mcg by mouth daily. Review of patient's allergies indicates: No Known Allergies Most Recent Immunizations Administered Date(s) Administered COVID-19 mRNA, LNP-s, No Preserve, 2-Dose Series ([employer]) 06/08/2021 Covid-19, Mrna, Lnp-s, Pf, Bivalent, 30 Mcg, IM, 12 yrs and above (Pfizer) 05/17/2022 DTaP - Dipth/Tet/Acell Pertussis 07/14/2009 Pneumococcal Conjugate Vacc, 13 Valent (Prevnar) 03/06/2016 Pneumococcal Polysaccharide PPV23 (Pneumovax) 08/19/2013 Season Influenza, Quad, PF, Adjuvanted, 65+ Yrs, IM (FLUAD) 05/05/2020 Seasonal Influenza, PF, 6 mons & Above, IM , (Flulaval) 04/04/2021 Seasonal Influenza, Quadrivalent Hd (Fluzone Hd) 05/17/2022 Seasonal Influenza, Quadrivalent, No Preserve, IM 06/28/2015 Seasonal Influenza, Split, IIV3, With Preserve, Inj 05/04/2014 Seasonal Influenza, Trivalent, Adjuvanted, 65+ yrs 08/04/2019 TDAP (age 10 and older)(Boostrix) 02/12/2014 Varicella Zoster Vaccine (Adult) 02/12/2014 Zoster Vaccine Recombinant (Shingrix) 02/08/2020 Review of Systems: Physical Exam BP 110/70 (BP Site: Right Arm, BP Position: Standing, BP Cuff Size: Regular) | Pulse 68 | Temp 36.3C (97.3 F) (Tympanic) | Resp 16 | Ht 1.695 m (5' 6.73") | Wt 68.3 kg (150 lb 8 oz) | BMI 23.76 kg/m | BSA 1.79 m Physical Exam Constitutional: Appearance: Normal appearance. HENT: Head: Normocephalic. Cardiovascular: Rate and Rhythm: Normal rate and regular rhythm. Pulmonary: Effort: Pulmonary effort is normal. Breath sounds: Normal breath sounds. Musculoskeletal: Cervical back: Neck supple. Skin: General: Skin is warm. Neurological: Mental Status: He is alert and oriented to person, place, and time. Motor: Weakness present. Coordination: Coordination abnormal. Gait: Gait abnormal. Comments: +resting tremors Psychiatric: Mood and Affect: Mood normal. Assessment and Plan 1. Parkinson's disease (HCC) Cont sinemet, reschedule with neurology 2. Urinary incontinence, nocturnal enuresis BPH vs OAB Consider pelvic floor PT 3. BPH with obstruction/lower urinary tract symptoms Discussed w Dr. Sweet Will increase Flomax from 0.4 mg to 0.8 mg daily today Watch for low blood pressure F/u with new pcp 4-6 weeks Consider post void ultrasound or urology referral - PSA; Future - Tamsulosin HCl 0.4 MG Oral Capsule (Flomax); Take 1 Capsule by mouth in the morning and 1 Capsulein the evening. Dispense: 180 Capsule; Refill: 0 4. Vertigo R/t parkinson's meds? - Meclizine HCl 25 MG Oral Tablet Chewable; chew 1 Tablet by mouth 2 times a day as needed for Dizziness. Dispense: 30 Tablet; Refill: 1 5. Impacted cerumen, right ear TM visualized after the lavage - REMOVAL IMPACTED CERUMEN IRRIGATION/LAVAGE, UNILAT Wrap-Up I have advised the patient to call our office with any worsening or new symptoms. I spent a total of 30-39 minutes (exact time 38 mins) on the date of service in preparation, delivery, and documentation of the care provided to Jacques Alicea excluding any time spent in the performance of separately billed services. Darío Marshall, [facility], [facility] documented in this encounter Nursing Notes * Gil Adam RN - 03/14/2023 2:38 PM EDT Chief Complaint Patient presents with Physical-Exam Patient states [facility] - patient states he has a 20 page form,but forgot to bring it; states he will bring it in next week documented in this encounter Plan of Treatment Upcoming Encounters Date Type Specialty Care Team Description 05/07/2023 Office Visit Family Medicine Joseph Yoder MD [address] [place] [address] 05/27/2023 Hospital Encounter Endoscopy Enid John MD [address] [place] [address] 05/27/2023 Surgery Endoscopy Enid John MD [address] [place] [address] COLONOSCOPY FLEXIBLE PROXIMAL DIAGNOSTIC Pending Results Name Type Priority Associated Diagnoses Date /Time PSA Lab Routine BPH with obstruction/lower urinary tract symptoms 03/14/2023 3:44 PM EDT Scheduled Orders Name Type Priority Associated Diagnoses Orde r Schedule REMOVAL IMPACTED CERUMEN IRRIGATION/LAVAGE, UNILAT Procedures Routine Impacted cerumen, right ear Ordered: 03/14/2023 PSA Lab Routine BPH with obstruction/lower urinary tract symptoms Expected: 03/14/2023 (Approximate), Expires: 03/13/2024 Scheduled Procedures Name Priority Associated Diagnoses Date/Ti [...] this encounter Medical Devices Implanted Type Area Machine Filler Shredder Device Identifier Shelf Expiration Date Model / Serial / Lot Lens Intraoc 20.0 - [id number] - [id number] Implanted:Qty: 1 on 09/26/2021 by Joni Moreno MD at OR [facility] Left: Eye [employer] 04/20/2026 [id number] / [id number] / [id number] Lens Intraoc 20.0 - [id number] - [id number] Implanted:Qty: 1 on 10/10/2021 by Joni Moreno MD at OR [facility] Right: Eye [employer]OMB 05/21/2026 [id number] / [id number] / [id number] Sureclip 16mm 235cm - [id number] Implanted:Qty: 2 on 08/03/2022 by Enid John MD at ENDOSCOPY [facility] Colon MICRO TECH ENDOSCOPY 09/28/2024 [id number] / / documented as of this encounter Visit Diagnoses Diagnosis Vertigo- Primary Dizziness and giddiness Parkinson's disease (HCC) Paralysis agitans Urinary incontinence, nocturnal enuresis Nocturnal enuresis BPH with obstruction/lower urinary tract symptoms Hypertrophy of prostate with urinary obstruction and other lower urinary tract symptoms (LUTS) Impacted cerumen, right ear History of colon polyps Personal history of colonic polyps documented in this encounter Care Teams Ship Yard Electrical Person Relationship Specialty Start Date End Date Elias Duarte DO [address] [place] [address] PCP - General Family Medicine 07/16/17 documented as of this encounter
--- OUTSIDE RECORDS SUMMARY | 2023-05-28 23:54 | External Medical Summary ---
Author Name Unknown Address Unknown Organization [facility] [place] [address] Laboratory Report Ordering Provider Test Date Status NINFA BLOUNT 01/01/2023 14:10:59 Final Observation Date Value Abnormality Reference (Units ) Status SYNC LEUKOCYTES IN BLOOD BY AUTOMATED COUNT 01/01/2023 14:10:59 6.33 4.00-10.80 (K/uL) Final Segs 01/01/2023 14:10:59 63.9 40.0-75.0 (%) Final Lymphs % 01/01/2023 14:10:59 22.0 18.0-42.0 (%) Final Monos 01/01/2023 14:10:59 11.4 Above high normal 1.0-11.0 (%) Final Eosinophils 01/01/2023 14:10:59 2.4 0.0-6.0 (%) Final Basos 01/01/2023 14:10:59 0.3 0.0-2.0 (%) Final Absolute Segs 01/01/2023 14:10:59 4.05 1.80-7.70 (K/uL) Final Lymphs, absolute 01/01/2023 14:10:59 1.39 1.00-4.80 (K/ul) Final Monos, Abs 01/01/2023 14:10:59 0.72 0.00-1.10 (K/uL) Final Eos, Abs 01/01/2023 14:10:59 0.15 0.00-0.70 (K/uL) Final Basos, Abs 01/01/2023 14:10:59 0.02 0.00-0.20 (K/uL) Final Performing Location [facility] [address] [place] [address]
--- OUTSIDE RECORDS SUMMARY | 2023-05-28 23:54 | External Medical Summary | Summary of Care ---
Author Name Unknown Organization [facility] Address [address] [facility] [address] Phone [phone] Care Team Providers Care Director Federal Name Role Phone Elias Duarte DO Primary Care Provider Reason for Visit * Reason Comments Medication Refill Encounter Details Date Type Department Care Team Description 12/24/2022 Refill Family Practice [facility] [address] [place] [address] Elias Duarte DO [address] [place] [address] Lumbar degenerative disc disease; Episode of recurrent major depressive disorder, unspecified depression episode severity (HCC) Allergies No known active allergiesdocumented as of this encounter (statuses as of 12/24/2022) Medications Medication Sig Dispensed Refills Start Date End Date Status B-12 1000 MCG Oral TabletIndications: B12 deficiency Take 1,000 mcg by mouth daily. 90 Tab 1 08/16/2020 Active Aspirin 81 MG Oral Tablet Delayed Release Take 1 Tablet by mouth in the morning. 0 Active Polyethylene Glycol 3350 17 GM Oral Packet (Miralax) Take 1 Packet by mouth daily as needed. 0 Active Bisacodyl 10 MG Rectal Suppository Administer into the rectum 10 mg daily as needed . 0 Active Metoprolol Succinate ER 25 MG Oral Tablet Extended Release 24 Hour (toPROL XL)Indications:Sym ptomatic PVCs TAKE 1 TABLET BY MOUTH DAILY 90 Tablet 3 02/15/2022 3 Active Meclizine HCl 25 MG Oral Tablet Chewable TAKE 1 TABLET BY MOUTH NEEDED IN THE MORNING, TAKE 1 TABLET NEEDED AT NOON AND TAKE 1 TABLET NEEDED IN THE EVENING FOR DIZZINESS 30 Tablet 1 02/12/2022 3 Active Tamsulosin HCl 0.4 MG Oral [...] CHEW 90 Capsule 0 12/24/2022 4 Active DULoxetine HCl 30 MG Oral Capsule Delayed Release Particles (Cymbalta)Indicati ons:Lumbar degenerative disc disease,Episode of recurrent major depressive disorder, unspecified depression episode severity (HCC) TAKE ONE CAPSULE BY MOUTH DAILY DO NOT CRUSH CUT OR CHEW 90 Capsule 0 06/21/2022 3 Discontinue d(Refill) documented as of this encounter (statuses as of 12/24/2022) Active Problems Problem Noted Date BPH with [...] as of this encounter (statuses as of 12/24/2022) Resolved Problems Problem Noted Date Resolved Date [...] as of this encounter (statuses as of 12/24/2022) Immunizations Name Administration Dates Next Due COVID-19 mRNA, LNP-s, No Pre serve, 2-Dose Series ([employer]) 06/08/2021,11/09/2020,10/19/2020 Covid-19, Mrna, Lnp-s, Pf, B ivalent, 30 Mcg, IM, 12 yrs and above ([employer]) 05/17/2022 DTaP - Dipth/Tet/Acell Pertussis 07/14/2009 Pneumococcal [...] Telephone Encounter - Elias Duarte DO - 12/24/2022 1:52 PM EDTSigned Prescriptions: Disp Refills DULoxetine HCl 30 MG Oral Capsule Delayed *90 Cap*0 Sig: TAKE ONE CAPSULE BY MOUTH DAILY DO NOT CRUSH CUT OR CHEWAuthorizing Provider: ELIAS DUARTE documented in this encounter Plan of Treatment Upcoming Encounters Date Type Specialty Care Team Description 01/01/2023 Office Visit Cardiology Kings Camargo MD [address] [place] [address] 02/05/2023 Hospital Encounter Endoscopy Marcus Johnson, DO [address] [place] [address] 02/05/2023 Surgery Endoscopy Marcus Johnson, DO [address] [place] [address] COLONOSCOPY FLEXIBLE PROXIMAL DIAGNOSTIC Scheduled Procedures Name [...] this encounter Medical Devices Implanted Type Area Clinical Nursing Director Device Identifier Shelf Expiration Date Model / Serial / Lot Lens Intraoc 20.0 - [id number] - [id number] Implanted:Qty: 1 on 09/26/2021 by Joni Moreno MD at OR [facility] Left: Eye [employer]OM[employer] 04/20/2026 [id number] / [id number] / [id number] Lens Intraoc 20.0 - [id number] - [id number] Implanted:Qty: 1 on 10/10/2021 by Joni Moreno MD at OR [facility] Right: Eye BA[employer]CH [employer] LOMB 05/21/2026 [id number] / [id number] / [id number] Sureclip 16mm 235cm - [id number] Implanted:Qty: 2 on 08/03/2022 by Enid John MD at ENDOSCOPY [facility] Colon MICRO TECH ENDOSCOPY 09/28/2024 [id number] / / documented as of this encounter Visit Diagnoses Diagnosis Lumbar degenerative disc disease Degeneration of lumbar or lumbosacral intervertebral disc Episode of recurrent major depressive disorder, unspecified depression episode severity (HCC) History of colon polyps Personal history of colonic polyps documented in this encounter Care Teams Director Federal Relationship Specialty Start Date End Date Elias Duarte DO [address] [place] [address] PCP - General Family Medicine 07/16/17 documented as of this encounter
--- OUTSIDE RECORDS SUMMARY | 2023-05-28 23:54 | External Medical Summary | Summary of Care ---
Author Name Unknown Organization [facility] [address] [address] Phone [phone] Care Team Providers Care Relocation Commissioner Name Role Phone Elias Duarte DO Primary Care Provider [phone] Reason for Visit * Reason Onset Date Comments Forms Request 03/19/2023 Encounter Details Date Type Department Care Team Description 03/19/2023 Telephone Family Practice [facility] [address] [place] [address] Elias Duarte DO [address] [place] [address] Forms Request Allergies No known active allergiesdocumented as of this encounter (statuses as of 03/27/2023) Medications Medication Sig Dispensed Refills Start Date [...] in the evening. 180 Capsule 0 03/14/2023 06/18/2023 Active documented as of this encounter (statuses as of 03/27/2023) Active Problems Problem Noted Date BPH with [...] as of this encounter (statuses as of 03/27/2023) Resolved Problems Problem Noted Date Resolved Date [...] as of this encounter (statuses as of 03/27/2023) Immunizations Name Administration Dates Next Due COVID-19 mRNA, LNP-s, No Pre serve, 2-Dose Series ([employer]) 06/08/2021,11/09/2020,10/19/2020 Covid-19, Mrna, Lnp-s, Pf, B ivalent, [...] Miscellaneous Notes * Telephone Encounter - CARMEN Ross - 03/27/2023 3:20 PM EDT Relayed message and scheduled an appt for the PPD after speaking to Shy in the clinic for 03/28/23 * Telephone Encounter - Sana Watreman - 03/27/2023 12:55 PM EDT LM for [...] If can they be faxed back to [facility] * Telephone Encounter - CARMEN Sow - 03/26/2023 1:32 PM EDT Joseline from [facility] calling in to check on the status of previous message. Wanted to inform that the patient his sold house this weekend and [facility] is awaiting the DME paperwork for him move into the facility. Callback number for Joseline is [phone]. * Telephone Encounter - YOLI Szymanski - [...] CARMEN Mark - 03/19/2023 1:11 PM EDT [facility] calling stating that the PA that saw the pt last needs to fill out the paper work. Thanks * Telephone Encounter - Maryjane Haji LPN - 03/19/2023 1:04 PM EDT Provider to address: Dar[place] Reason for Call: No chief complaint on file. Contact: Telephone Call Contact Type: Other: Form Outcome: Paperwork dropped off to our office today by [employer] [facility] for possible ambition to the facility. Pt was last seen by on 03/14 for vertigo and Parkinson's. Are youok with filling out the paperwork or does he need to be seen for a physical? Total Time including non face to face (minutes): 15 documented in this encounter Plan of Treatment Upcoming Encounters Date Type Specialty Care Team Description 03/28/2023 Nurse Only Ancillary Nurse Petey Us [address] [place] [address] 05/07/2023 Office Visit Family Medicine Joseph Yoder MD [address] [place] [address] 05/27/2023 Hospital Encounter Endoscopy Enid John MD [address] [place] [address] 05/27/2023 Surgery Endoscopy Enid John MD [address] [place] [address] COLONOSCOPY FLEXIBLE PROXIMAL DIAGNOSTIC Scheduled Procedures Name [...] this encounter Medical Devices Implanted Type Area Cupola Melter Device Identifier Shelf Expiration Date Model / Serial / Lot Lens Intraoc 20.0 - [id number] - [id number] Implanted:Qty: 1 on 09/26/2021 by Joni Moreno MD at OR [facility] Left: Eye [employer]OM[employer] 04/20/2026 [id number] / [id number] / [id number] Lens Intraoc 20.0 - [id number] - [id number] Implanted:Qty: 1 on 10/10/2021 by Joni Moreno MD at OR [facility] Right: Eye [employer]CH [employer]OMB 05/21/2026 [id number] / [id number] / [id number] Sureclip 16mm 235cm - [id number] Implanted:Qty: 2 on 08/03/2022 by Enid John MD at ENDOSCOPY [facility] Colon MICRO TECH ENDOSCOPY 09/28/2024 [id number] / / documented as of this encounter Care Teams Relocation Commissioner Relationship Specialty Start Date End Date Elias Duarte DO [address] [place] [address] PCP - General Family Medicine 07/16/17 documented as of this encounter
--- OUTSIDE RECORDS SUMMARY | 2023-05-28 23:54 | External Medical Summary | Summary of Care ---
Author Name Unknown Organization [place] [address] Care Team Providers Care Tree Climber Name Role Phone Elias Duarte DO Primary Care Provider Reason for Visit * Reason Comments Medication Refill Encounter Details Date Type Department Care Team Description 08/29/2022 Refill Cardiology, [facility] [address] [place] [place] [address] Kings Camargo MD [address] [facility] [place] [address] Mixed dyslipidemia; PVC (premature ventricular contraction) Allergies No known active allergiesdocumented as of this encounter (statuses as of 08/29/2022) Medications Medication Sig Dispensed Refills Start Date End Date Status B-12 1000 MCG Oral TabletIndications:B 12 deficiency Take 1,000 mcg by mouth daily. [...] mg daily as needed . 0 Active Meclizine HCl 25 MG Oral Tablet Chewable CHEW ONE TABLET BY MOUTH NEEDED IN THE MORNING AND ONE TABLET NEEDED AT NOON AND ONE TABLET NEEDED IN THE EVENING FOR DIZZINESS 30 Tablet 1 06/21/2022 06/21/2023 Active DULoxetine HCl 30 MG Oral Capsule Delayed Release Particles (Cymbalta)Indicatio ns:Lumbar degenerative disc disease,Episode of recurrent major depressive disorder, unspecified depression episode severity (HCC) TAKE ONE CAPSULE BY MOUTH DAILY DO NOT CRUSH CUT OR CHEW 90 Capsule 0 06/21/2022 06/21/2023 Active Metoprolol Succinate ER 25 MG Oral Tablet Extended Release 24 Hour (toPROL XL)Indications:Symp tomatic PVCs TAKE 1 TABLET BY MOUTH DAILY 90 Tablet 3 02/15/2022 02/15/2023 Active Meclizine HCl 25 MG Oral Tablet Chewable TAKE 1 TABLET BY MOUTH NEEDED IN THE MORNING, TAKE 1 TABLET NEEDED AT NOON AND TAKE 1 TABLET NEEDED IN THE EVENING FOR DIZZINESS 30 Tablet 1 02/12/2022 02/12/2023 Active Finasteride 5 MG Oral Tablet (Proscar)Indication s:BPH with obstruction/lower urinary tract symptoms TAKE ONE TABLET BY MOUTH DAILY 90 Tablet 3 11/21/2021 11/26/2022 Active Carbidopa-Levodopa 25-100 MG Oral Tablet (Sinemet)Indication s:Parkinson's disease (HCC) TAKE ONE TABLET BY MOUTH IN THE MORNING THEN ONE TABLET AT NOON THEN ONE TABLET IN THE EVENING AND ONE TABLET BEFORE BEDTIME 360 Tablet 1 11/21/2021 11/27/2022 Active Pravastatin Sodium 20 MG Oral Tablet (Pravachol)Indicati ons:Mixed dyslipidemia,PVC (premature ventricular contraction) TAKE ONE TABLET BY MOUTH EACH NIGHT AT BEDTIME 90 Tablet 3 08/02/2021 11/27/2022 Active Tamsulosin HCl 0.4 MG Oral Capsule (Flomax)Indications :BPH with obstruction/lower urinary tract symptoms TAKE ONE CAPSULE BY MOUTH AT BEDTIME 90 Capsule 1 08/29/2022 08/29/2023 Active Carbidopa-Levodopa ER 25-100 MG Oral Tablet Extended Release (Sinemet CR)Indications:Park inson's disease (HCC) TAKE 1 TABLET BY MOUTH BEFORE BEDTIME 90 Tablet 1 08/28/2022 08/28/2023 Active documented as of this encounter (statuses as of 08/29/2022) Active Problems Problem Noted Date BPH with [...] as of this encounter (statuses as of 08/29/2022) Resolved Problems Problem Noted Date Resolved Date [...] as of this encounter (statuses as of 08/29/2022) Immunizations Name Administration Dates Next Due COVID-19 mRNA, LNP-s, No Pre serve, 2-Dose Series ([employer]) 06/08/2021,11/09/2020,10/19/2020 Covid-19, Mrna, Lnp-s, Pf, B ivalent Booster, 30 Mcg, IM, 12 yrs and above ([employer]) 05/17/2022 DTaP - Dipth/Tet/Acell Pertussis 07/14/2009 Pneumococcal [...] as of this encounter Miscellaneous Notes * Addendum Note - Garth Jiang RN - 08/29/2022 12:29 PM ESTAddended by: GARTH JIANG on: 08/29/2022 12:29 PM Modules accepted: Orders * Telephone Encounter - Garth Jiang RN - 08/29/2022 12:28 PM EST Pending Prescriptions: Disp Refills Pravastatin Sodium 20 MG Oral Tablet (Pra*90 Tab*3 Sig: Take 1 Tablet by mouth every evening. Refused Prescriptions: Disp Refills Pravastatin Sodium 20 MG Oral Tablet (Prav*90 Tab*1 Sig: TAKE ONE TABLET BY MOUTH EACH NIGHT AT BEDTIME Refused By: WILDER DENT Reason for Refusal: Managed by another physician Last Visit: 04/04/2021 (in office), Visit date not found (telemedicine) Next Visit: 12/26/2022 Last medication order date: 08/02/2021 Have you choosen a preferred pharm?? yes Patient Active Problem List Diagnosis Code Mixed dyslipidemia E78.2 Sarcoidosis of lung (HCC) D86.0 Routine medical exam Z00.00 Special screening for malignant neoplasms, colon Z12.11 Need for prophylactic vaccination against Streptococcus pneumoniae (pneumococcus) Z23 Irritable bowel syndrome with constipation K58.1 PVC (premature ventricular contraction) I49.3 Dizziness R42 Palpitations R00.2 Episode of recurrent major depressive disorder (HCC) F33.9 Parkinson's disease (HCC) G20 Lumbar degenerative disc disease M51.36 BPH with obstruction/lower urinary tract symptoms N40.1, N13.8 Labs: Lab Results Component Value Date/Time CREATININE - [facility] 0.8 04/21/2021 10:26 AM CREATININE - [facility] 1.0 08/15/2020 02:09 PM Lab Results Component Value Date/Time POTASSIUM - [facility] 4.4 04/21/2021 10:26 AM POTASSIUM - [facility] 4.3 08/15/2020 02:09 PM Lab Results Component Value Date/Time TSH - [facility] 1.66 08/15/2017 08:12 AM Lab Results Component Value Date/Time LDL CHOLESTEROL (CALCULATED) - [facility] 02/08/2020 10:15 AM Uninterpretable, recommend direct LDL cholesterol testing. LDL CHOLESTEROL (CALCULATED) - [facility] 61 08/18/2018 12:44 PM LDL CHOLESTEROL (DIRECT MEASURE) - [facility] 82 08/15/2020 02:09 PM LDL CHOLESTEROL (DIRECT MEASURE) - [facility] NOT APPLICABLE 03/12/2016 09:19 AM LDL CHOLESTEROL (DIRECT MEASURE) - [facility] NOT APPLICABLE 10/20/2014 07:07 AM Lab Results Component Value Date/Time ALT - [facility] <5 (L) 04/21/2021 10:26 AM ALT - [facility] 20 02/08/2020 10:15 AM Hemoglobin AIC Results: Lab Results Component Value Date/Time HEMOGLOBIN A1C - [facility] 5.6 04/21/2021 10:26 AM HEMOGLOBIN A1C - [facility] 5.7 (H) 08/15/2020 02:14 PM HEMOGLOBIN A1C - [facility] 5.4 08/15/2017 08:12 AM * Telephone Encounter - Wilder Dent DO - 08/29/2022 12:19 PM ESTRefused Prescriptions: Disp Refills Pravastatin Sodium 20 MG Oral Tablet (Prav*90 Tab*1 Sig: TAKE ONE TABLET BY MOUTH EACH NIGHT AT BEDTIMERefused By: WILDER DENT for Refusal: Managed by another physician documented in this encounter Plan of Treatment Upcoming Encounters Date Type Specialty Care Team Description 11/30/2022 Office Visit Neurology Tone Chavez DO [address] [place] [address] 12/26/2022 Office Visit Cardiology Kings Camargo MD [address] [place] [address] 02/04/2023 Hospital Encounter Endoscopy Enid John MD [address] [place] [address] 02/04/2023 Surgery Endoscopy Enid John MD [address] [place] [address] COLONOSCOPY FLEXIBLE PROXIMAL DIAGNOSTIC Scheduled Procedures Name Priority Associated Diagnoses Date/Ti me COLONOSCOPY FLEXIBLE PROXIMAL DIAGNOSTIC Recall History of colon polyps 02/04/2023 8:00 AM EDT Health Maintenance Due Date [...] this encounter Medical Devices Implanted Type Area Scuba Dive Training Instructor Device Identifier Shelf Expiration Date Model / Serial / Lot Lens Intraoc 20.0 - [id number] - [id number] Implanted:Qty: 1 on 09/26/2021 by Joni Moreno MD at OR [facility] Left: Eye [employer] 04/20/2026 [id number] / [id number] / [id number] Lens Intraoc 20.0 - [id number] - [id number] Implanted:Qty: 1 on 10/10/2021 by Joni Moreno MD at OR [facility] Right: Eye [employer] 05/21/2026 [id number] / [id number] / [id number] Sureclip 16mm 235cm - [id number] Implanted:Qty: 2 on 08/03/2022 by Enid John MD at ENDOSCOPY [facility] Colon MICRO TECH ENDOSCOPY 09/28/2024 [id number] / / documented as of this encounter Visit Diagnoses Diagnosis Mixed dyslipidemia Mixed hyperlipidemia PVC (premature ventricular contraction) Other premature beats History of colon polyps Personal history of colonic polyps documented in this encounter Care Teams Tree Climber Relationship Specialty Start Date End Date Elias Duarte DO [address] [place] [address] [address] [place] [address] PCP - General Family Medicine 07/16/17 documented as of this encounter
--- OUTSIDE RECORDS SUMMARY | 2023-05-28 23:54 | External Medical Summary ---
Author Name Unknown Address Unknown Organization [id number]:[facility] - [address] [place] [address] Laboratory Report Ordering Provider Test Date Status ALEJANDRA OROZCO 03/28/2023 09:59:27 Final For PreSurgery, Procedure, O B Admit, or Surveillance testing - Nasal Turbinate source preferred.

For Symptomatic testing - Nasopharyngeal source preferred.
null Observation Date Value Abnormality Reference (Units ) Status SARS Coronavirus 2 03/28/2023 09:59:27 Negative N egative Final 2018 Novel Coronavirus not d etected.

This express test was developed and its performance characteristics determined by [facility]. It has not been cleared or approved by the U.S. Food and Drug Administration (FDA). FDA does not require this test to go thru premarket FDA review. This test is used for clinical purposes. It should not be regarded as investigational or for research. This laboratory is certified under the Clinical Laboratory Improvement Amendments (CLIA) as qualified to perform high complexity clinical laboratory testing.

This test is a nucleic acid amplification test (NAAT), a reverse transcriptase polymerase chain reaction (RT-PCR) test, or a Centers for Disease Control-acceptable equivalent. The test is performed in a high complexity Clinical Laboratory Improvement Amendments-(CLIA) certified laboratory. The test is acceptable for SARS-CoV-2 diagnosis, surveillance, and travel within the [place] and to most countries. Please check with local testing authorities about requirements before travel.

The validation of bronchial specimens, tracheal aspirates, and sputum for this assay was developed and performance characteristics determined by [facility]. The validation of alternate specimen types has not been cleared or approved by the U.S. Food and Drug Administration (FDA). It has been determined that such clearance is not necessary. Performing Location [facility] 0 - [address] [place] [address]
--- OUTSIDE RECORDS SUMMARY | 2023-05-28 23:54 | External Medical Summary | Summary of Care ---
Author Name Unknown Organization [facility] Address [address] [place] [address] Phone [phone] Care Team Providers Care Loan Documents Closer Name Role Phone Elias Duarte DO Primary Care Provider + [phone] Reason for Visit * Reason Comments Outpatient Testing Encounter Details Date Type Department Care Team Description 01/01/2023 Laboratory Laboratory, [facility] [address] [place] [address] [facility] [address] [place] [address] Arrived Allergies No known active allergiesdocumented as of [...] DIZZINESS 30 Tablet 1 02/12/2022 02/12/2023 Active Tamsulosin HCl 0.4 MG Oral Capsule [...] Tablet (Pravachol)Indicati ons:Mixed dyslipidemia,PVC (premature ventricular contraction) Take 1 Tablet by mouth every evening. 90 Tablet 3 08/29/2022 Active Meclizine HCl 25 MG Oral Tablet Chewable CHEW ONE TABLET BY MOUTH NEEDED IN THE MORNING AND ONE TABLET NEEDED AT NOON AND ONE TABLET NEEDED IN THE EVENING FOR DIZZINESS 30 Tablet 1 11/05/2022 11/05/2023 Active DULoxetine HCl 30 MG Oral Capsule Delayed Release Particles (Cymbalta)Indicatio ns:Lumbar degenerative disc disease,Episode of recurrent major depressive disorder, unspecified depression episode severity (HCC) TAKE ONE CAPSULE BY MOUTH DAILY DO NOT CRUSH CUT OR CHEW 90 Capsule 0 12/24/2022 12/24/2023 Active Carbidopa-Levodopa 25-100 MG Oral Tablet (Sinemet) Take 1 Tablet by mouth in the morning and 1 Tablet at noon and 1 Tablet in the evening and 1 Tablet before bedtime. 0 Active documented as of this encounter (statuses [...] mRNA, LNP-s, No Pre serve, 2-Dose Series ([employer]) 06/08/2021,11/09/2020,10/19/2020 Covid-19, Mrna, Lnp-s, Pf, B ivalent, 30 Mcg, IM, 12 yrs and above ([employer]) 05/17/2022 DTaP - Dipth/Tet/Acell Pertussis 07/14/2009 Pneumococcal [...] Encounter Endoscopy Marcus Johnson, DO [address] [place] [address] 02/05/2023 Surgery Endoscopy Marcus Johnson, DO [address] [place] [address] COLONOSCOPY FLEXIBLE PROXIMAL DIAGNOSTIC Scheduled Procedures Name [...] this encounter Medical Devices Implanted Type Area Retort Feeder Ground Bone Device Identifier Shelf Expiration Date Model / Serial / Lot Lens Intraoc 20.0 - [id number] - [id number] Implanted:Qty: 1 on 09/26/2021 by Joni Moreno MD at OR [facility] Left: Eye [employer] 04/20/2026 [id number] / [id number] / [id number] Lens Intraoc 20.0 - [id number] - [id number] Implanted:Qty: 1 on 10/10/2021 by Joni Moreno MD at OR [facility] Right: Eye [employer] 05/21/2026 [id number] / [id number] / [id number] Sureclip 16mm 235cm - [id number] Implanted:Qty: 2 on 08/03/2022 by Enid John MD at ENDOSCOPY [facility] Colon MICRO TECH ENDOSCOPY 09/28/2024 [id number] / / documented as of this encounter Care Teams Loan Documents Closer Relationship Specialty Start Date End Date Elias Duarte DO [address] [place] [address] PCP - General Family Medicine 07/16/17 documented as of this encounter
--- OUTSIDE RECORDS SUMMARY | 2023-05-28 23:54 | External Medical Summary | Summary of Care ---
Author Name Unknown Organization [place] [address] Care Team Providers Care Exterminator Name Role Phone Elias Duarte DO Primary Care Provider Reason for Visit * Reason Comments Medication Refill Encounter Details Date Type Department Care Team Description 08/29/2022 Refill Cardiology, [facility] [address] [address] Kings Camargo MD 132 [facility] [place] [address] Mixed dyslipidemia; PVC (premature ventricular contraction) Allergies [...] mRNA, LNP-s, No Pre serve, 2-Dose Series ([employer]) 06/08/2021,11/09/2020,10/19/2020 Covid-19, Mrna, Lnp-s, Pf, B ivalent Booster, 30 Mcg, IM, 12 yrs and above ([employer]) 05/17/2022 DTaP - Dipth/Tet/Acell Pertussis 07/14/2009 Pneumococcal [...] BEDTIMERefused By: WILDER DENT for Refusal: Managed byanother physician documented in this encounter Plan of Treatment Upcoming Encounters Date Type Specialty Care Team Description 11/30/2022 Office Visit Neurology Tone Chavez DO [address] [place] [facility] [place] [address] 12/26/2022 Office Visit Cardiology Kings Camargo MD [address] [address] 02/04/2023 Hospital Encounter Endoscopy Enid John MD [address] [place] [address] 02/04/2023 Surgery Endoscopy Enid John MD [address] [place] [address] COLONOSCOPY FLEXIBLE PROXIMAL DIAGNOSTIC Scheduled Procedures Name [...] this encounter Medical Devices Implanted Type Area Bisque Placer Device Identifier Shelf Expiration Date Model / Serial / Lot Lens Intraoc 20.0 - [id number] - [id number] Implanted:Qty: 1 on 09/26/2021 by Joni Moreno MD at OR [facility] Left: Eye [employer] 04/20/2026 [id number] / [id number] / [id number] Lens Intraoc 20.0 - [id number] - [id number] Implanted:Qty: 1 on 10/10/2021 by Joni Moreno MD at OR [facility] Right: Eye [employer]OM[employer] 05/21/2026 [id number] / [id number] / [id number] Sureclip 16mm 235cm - [id number] Implanted:Qty: 2 on 08/03/2022 by Enid John MD at ENDOSCOPY [facility] Colon MICRO TECH ENDOSCOPY 09/28/2024 [id number] / / documented as of this encounter Visit Diagnoses Diagnosis Mixed dyslipidemia Mixed hyperlipidemia PVC (premature ventricular contraction) Other premature beats History of colon polyps Personal history of colonic polyps documented in this encounter Care Teams Exterminator Relationship Specialty Start Date End Date Elias Duarte DO [address] [place] [address] [place] [address] PCP - General Family Medicine 07/16/17 documented as of this encounter
--- OUTSIDE RECORDS SUMMARY | 2023-05-28 23:54 | External Medical Summary | Summary of Care ---
Author Name Unknown Organization [facility] Address [address] [facility] [address] Phone [phone] Care Team Providers Care Profile Stitching Machine Operator Name Role Phone Elias Duarte DO Primary Care Provider Reason for Visit * Reason Onset Date Comments eRx-Medication Refill Left Message 06/19/2022 Encounter Details Date Type Department Care Team Description 06/19/2022 Refill Family Practice [facility] [address] [facility] [place] [address] Elias Duarte DO [address] [place] [address] Encounter for long-term (current) use of medications*; Lumbar degenerative disc disease; Episode of recurrent major depressive disorder, unspecified depression episode severity (HCC); Mixed dyslipidemia Allergies No known active allergiesdocumented as of this encounter (statuses as of 10/08/2022) Medications Medication Sig Dispensed Refills Start Date End Date Status B-12 1000 MCG Oral TabletIndications :B12 deficiency Take 1,000 mcg by mouth daily. 90 Tab 1 1 Active Aspirin 81 MG Oral Tablet Delayed Release Take 1 Tablet by mouth in the morning. 0 Active Polyethylene Glycol 3350 17 GM Oral Packet (Miralax) Take 1 Packet by mouth daily as needed. 0 Active Bisacodyl 10 MG Rectal Suppository Administer into the rectum 10 mg daily as needed . 0 Active Pravastatin Sodium 20 MG Oral Tablet (Pravachol)Indica tions:Mixed dyslipidemia,PVC (premature ventricular contraction) TAKE ONE TABLET BY MOUTH EACH NIGHT AT BEDTIME 90 Tablet 3 2 08/02/19 22 Discontinued(Leg acy prescription brought in as discontinued) Finasteride 5 MG Oral Tablet (Proscar)Indicati ons:BPH with obstruction/lower urinary tract symptoms TAKE 1 TABLET BY MOUTH DAILY. 90 Tablet 3 2 11/22/19 22 Discontinued(Leg acy prescription brought in as discontinued) Carbidopa-Levodop a 25-100 MG Oral Tablet (Sinemet)Indicati ons:Parkinson's disease (HCC) Take by mouth 1 Tablet in the morning AND 1 Tablet at noon AND 1 Tablet in the evening AND 1 Tablet before bedtime. 360 Tablet 1 2 11/22/19 22 Discontinued(Leg acy prescription brought in as discontinued) Carbidopa-Levodop a ER 25-100 MG Oral Tablet Extended Release (Sinemet CR)Indications:Pa rkinson's disease (HCC) Take by mouth 1 Tablet before bedtime. 90 Tablet 1 2 11/22/19 22 Discontinued(Leg acy prescription brought in as discontinued) Meclizine HCl 25 MG Oral Tablet (Antivert)Indicat ions:Vertigo Take by mouth 1 Tablet as needed in the morning AND 1 Tablet as needed at noon AND 1 Tablet as needed in the evening for Dizziness. 30 Tablet 1 2 06/21/20 22 [facility] Metoprolol Succinate ER 25 MG Oral Tablet Extended Release 24 Hour (toPROL XL)Indications:Sy mptomatic PVCs TAKE ONE TABLET BY MOUTH DAILY 90 Tablet 3 2 02/16/20 22 Discontinued(Leg acy prescription brought in as discontinued) Tamsulosin HCl 0.4 MG Oral Capsule (Flomax)Indicatio ns:BPH with obstruction/lower urinary tract symptoms TAKE ONE CAPSULE BY MOUTH AT BEDTIME 90 Capsule 1 2 02/23/20 22 Discontinued(Leg acy prescription brought in as discontinued) DULoxetine HCl 30 MG Oral Capsule Delayed Release Particles (Cymbalta)Indicat ions:Lumbar degenerative disc disease,Episode of recurrent major depressive disorder, unspecified depression episode severity (HCC) TAKE ONE CAPSULE BY MOUTH DAILY DO NOT CRUSH CUT OR CHEW 90 Capsule 1 2 06/21/20 22 Discontinued Meclizine HCl 25 MG Oral Tablet Chewable TAKE 1 TABLET BY MOUTH NEEDED IN THE MORNING, TAKE 1 TABLET NEEDED AT NOON AND TAKE 1 TABLET NEEDED IN THE EVENING FOR DIZZINESS 30 Tablet 1 2 06/21/20 22 Discontinued(Leg acy prescription brought in as discontinued) DULoxetine HCl 30 MG Oral Capsule Delayed Release Particles (Cymbalta)Indicat ions:Lumbar degenerative disc disease,Episode of recurrent major depressive disorder, unspecified depression episode severity (HCC) TAKE ONE CAPSULE BY MOUTH DAILY DO NOT CRUSH CUT OR CHEW 90 Capsule 0 2 06/21/20 22 Discontinued(Leg acy prescription brought in as discontinued) documented as of this encounter (statuses as of 10/08/2022) Active Problems Problem Noted Date BPH with [...] as of this encounter (statuses as of 10/08/2022) Resolved Problems Problem Noted Date Resolved Date [...] as of this encounter (statuses as of 10/08/2022) Immunizations Name Administration Dates Next Due COVID-19 mRNA, LNP-s, No Pre serve, 2-Dose Series ([employer]) 06/08/2021,11/09/2020,10/19/2020 Covid-19, Mrna, Lnp-s, Pf, B ivalent [...] encounter Miscellaneous Notes * Telephone Encounter - Mickie Roblero CPhT - 10/08/2022 4:04 PM EDT Received message from [facility] regarding patient needing labs. Placed call to patient to advise. Left message on voicemail advising of required labs and to call back for an appointment. Thank you, Mickie Roblero CPhT [employer]murm[employer] 10/08/2022,4:04 PM * Telephone Encounter - Jose Antnuez [facility] - 06/21/2022 11:00 AM ESTSigned Prescriptions: Disp Refills Meclizine HCl 25 MG Oral Tablet Chewable 30 Tab*1 Sig: TAKE 1 TABLET BY MOUTH NEEDED IN THE MORNING, TAKE 1 TABLET NEEDED AT NOON AND TAKE 1 TABLET NEEDED IN THE EVENING FOR DIZZINESS Authorizing Provider: ELIAS DUARTE Ordering User: JOSE ANTUNEZ DULoxetine HCl 30 MG Oral Capsule Delayed *90 Cap*0 Sig: TAKE ONE CAPSULE BY MOUTH DAILY DO NOT CRUSH CUT OR CHEW Authorizing Provider: ELIAS DUARTE Ordering User: JOSE ANTUNEZ * Telephone Encounter - Jose Antunez [facility] - 06/21/2022 10:58 AM EST Provided 90 days supply with 0 refill(s). Per refill protocol patient should have BMP/lipids on file within past year. Reviewed AMP report, Care Gaps/Health Maintenance, medications list, and for anyroutine labs typically ordered for this patient. Lab orders placed. Please contact patient to advise of labs ordered for blood draw.. Recommend patient to fast if ablefor labs. Patient may still have water and regular medications. Advise to obtain labs before requesting the next refill. Thanks, Jose Antunez Pharm.D. Clinical Pharmacist [facility] [phone] 06/21/2022, 10:59 AM documented in this encounter Plan of Treatment Upcoming Encounters Date Type Specialty Care Team Description 12/26/2022 Office Visit Cardiology Kings Camargo MD [address] [place] [address] 02/04/2023 Hospital Encounter Endoscopy Enid John MD [address] [place] [address] 02/04/2023 Surgery Endoscopy Enid John MD [address] [place] [address] COLONOSCOPY FLEXIBLE PROXIMAL DIAGNOSTIC Scheduled Orders Name Type Priority Associated Diagnoses Orde r Schedule BASIC METABOLIC PANEL Lab Routine Encounter for long-term (current) use of medications Expected: 07/22/2022 (Approximate), Expires: 06/21/2023 LIPID PANEL WITH DIRECT LDL IF TG IS HIGH Lab Routine Encounter for long-term (current) use of medications Mixed dyslipidemia Expected: 07/22/2022 (Approximate), Expires: 06/21/2023 Scheduled Procedures Name Priority Associated Diagnoses Date/Ti [...] this encounter Medical Devices Implanted Type Area System Safety Engineer Device Identifier Shelf Expiration Date Model / Serial / Lot Lens Intraoc 20.0 - [id number] - [id number] Implanted:Qty: 1 on 09/26/2021 by Joni Moreno MD at OR [facility] Left: Eye [employer]USCH [employer] LOMB 04/20/2026 [id number] / [id number] / [id number] Lens Intraoc 20.0 - [id number] - [id number] Implanted:Qty: 1 on 10/10/2021 by Joni Moreno MD at OR [facility] Right: Eye BA[employer]CH [employer] LOMB 05/21/2026 [id number] / [id number] / [id number] Sureclip 16mm 235cm - [id number] Implanted:Qty: 2 on 08/03/2022 by Enid John MD at ENDOSCOPY [facility] Colon MICRO TECH ENDOSCOPY 09/28/2024 [id number] / / documented as of this encounter Visit Diagnoses Diagnosis Encounter for long-term (current) use of medications- Primary Encounter for long-term (current) use of other medications Lumbar degenerative disc disease Degeneration of lumbar or lumbosacral intervertebral disc Episode of recurrent major depressive disorder, unspecified depression episode severity (HCC) Mixed dyslipidemia Mixed hyperlipidemia History of colon polyps Personal history of colonic polyps documented in this encounter Care Teams Profile Stitching Machine Operator Relationship Specialty Start Date End Date Elias Duarte DO [address] [place] [address] PCP - General Family Medicine 07/16/17 documented as of this encounter
--- OUTSIDE RECORDS SUMMARY | 2023-05-28 23:54 | External Medical Summary ---
Author Name Unknown Address Unknown Organization K01:[facility] - [address] [place] [address] Laboratory Report Ordering Provider Test Date Status ANTWAN SURESH 03/14/2023 15:44:58 Final Observation Date Value Abnormality Reference (Units ) Status PSA 03/14/2023 15:44:58 1.92 <4.10 (ng/ mL) Final Performing Location [facility] - [address] [place] [address]
--- OUTSIDE RECORDS SUMMARY | 2023-05-28 23:54 | External Medical Summary | Summary of Care ---
Author Name Unknown Organization [facility] Address [address] [place] [address] Phone [phone] Care Team Providers Care Interior Painter Name Role Phone Elias Duarte DO Primary Care Provider Reason for Visit * Reason Comments Medication Refill Encounter Details Date Type Department Care Team Description 11/02/2022 Refill [facility] [address] [facility] [address] Elias Duarte DO [address] [facility] [place] [address] Allergies No known active allergiesdocumented as of this encounter (statuses as of 11/05/2022) Medications Medication Sig Dispensed Refills Start Date [...] mg daily as needed . 0 Active DULoxetine HCl 30 MG Oral Capsule Delayed Release Particles (Cymbalta)Indicati ons:Lumbar degenerative disc disease,Episode of recurrent major depressive disorder, unspecified depression episode severity (HCC) TAKE ONE CAPSULE BY MOUTH DAILY DO NOT CRUSH CUT OR CHEW 90 Capsule 0 06/21/2022 3 Active Metoprolol Succinate ER 25 MG Oral [...] DIZZINESS 30 Tablet 1 02/12/2022 3 Active Finasteride 5 MG Oral Tablet (Proscar)Indicatio ns:BPH with obstruction/lower urinary tract symptoms TAKE ONE TABLET BY MOUTH DAILY 90 Tablet 3 11/21/2021 3 Active Carbidopa-Levodopa 25-100 MG Oral Tablet (Sinemet)Indicatio ns:Parkinson's disease (HCC) TAKE ONE TABLET BY MOUTH IN THE MORNING THEN ONE TABLET AT NOON THEN ONE TABLET IN THE EVENING AND ONE TABLET BEFORE BEDTIME 360 Tablet 1 11/21/2021 3 Active Tamsulosin HCl 0.4 MG Oral [...] DIZZINESS 30 Tablet 1 11/05/2022 4 Active Meclizine HCl 25 MG Oral Tablet Chewable CHEW ONE TABLET BY MOUTH NEEDED IN THE MORNING AND ONE TABLET NEEDED AT NOON AND ONE TABLET NEEDED IN THE EVENING FOR DIZZINESS 30 Tablet 1 06/21/2022 3 Discontinue d(Refill) documented as of this encounter (statuses as of 11/05/2022) Active Problems Problem Noted Date BPH with [...] as of this encounter (statuses as of 11/05/2022) Resolved Problems Problem Noted Date Resolved Date [...] as of this encounter (statuses as of 11/05/2022) Immunizations Name Administration Dates Next Due COVID-19 mRNA, LNP-s, No Pre serve, 2-Dose Series ([employer]) 06/08/2021,11/09/2020,10/19/2020 Covid-19, Mrna, Lnp-s, Pf, B ivalent Booster, 30 Mcg, IM, 12 yrs and above ([employer]) 05/17/2022 DTaP - Dipth/Tet/Acell Pertussis 07/14/2009 Pneumococcal [...] Telephone Encounter - Elias Duarte DO - 11/05/2022 9:55 AM EDTSigned Prescriptions: Disp Refills Meclizine HCl 25 MG Oral Tablet Chewable 30 Tab*1 Sig: CHEW ONE TABLET BY MOUTH NEEDED IN THE MORNING AND ONE TABLET NEEDED AT NOON AND ONE TABLET NEEDED IN THE EVENING FOR DIZZINESS Authorizing Provider: ELIAS DUARTE * Telephone Encounter - Claudia Bull, [facility] - 11/03/2022 1:37 PM EDTPending Prescriptions: Disp Refills Meclizine HCl 25 MG Oral Tablet Chewable 30 Tab*1 Sig: CHEW ONE TABLET BY MOUTH NEEDED IN THE MORNING AND ONE TABLET NEEDED AT NOON AND ONE TABLET NEEDED IN THE EVENING FOR DIZZINESS * Telephone Encounter - Claudia Bull [facility] - 11/03/2022 1:37 PM EDT Patient did not meet protocol requirements. Recommended to use caution if > 65 years old. Pleaseapprove if appropriate. Pending Prescriptions: Disp Refills Meclizine HCl 25 MG Oral Tablet Chewable 30 Tab*1 Sig: CHEW ONE TABLET BY MOUTH NEEDED IN THE MORNING AND ONE TABLET NEEDED AT NOON AND ONE TABLET NEEDED IN THE EVENING FOR DIZZINESS 02/12/2022 (in office), Visit date not found (telemedicine) Visit date not found If no future appointments scheduled, and last appointment is greater than a year ago, please schedule patient for a follow-up appointment Last date the medication was ordered: 06/21/22 Pharmacy: [facility] Is this request for a controlled substance?No Urine Drug Screen:No results found for this or any previous visit. Patient Phone Numbers Labs: Lab Results Component Value Date/Time CREAT 0.8 04/21/2021 10:26 AM CREAT 1.0 08/15/2020 02:09 PM POTASSIUM 4.4 04/21/2021 10:26 AM POTASSIUM 4.3 08/15/2020 02:09 PM TSH 1.66 08/15/2017 08:12 AM LDLCALC 02/08/2020 10:15 AM Uninterpretable, recommend direct LDL cholesterol testing. LDLDIRECT 82 08/15/2020 02:09 PM ALT <5 (L) 04/21/2021 10:26 AM ALT 20 02/08/2020 10:15 AM HGBA1C 5.6 04/21/2021 10:26 AM HGBA1C 5.7 (H) 08/15/2020 02:14 PM documented in this encounter Plan of Treatment Upcoming Encounters Date Type Specialty Care Team Description 12/26/2022 Office Visit Cardiology Kings Camargo MD [address] [place] [address] 02/04/2023 Hospital Encounter Endoscopy Enid John MD [address] [place] [address] 02/04/2023 Surgery Endoscopy Enid John MD [address] [place] [address] COLONOSCOPY FLEXIBLE PROXIMAL DIAGNOSTIC Scheduled Procedures Name [...] 02/13/2024 02/12/2014, 07/14/2009 Lipid Panel 08/15/2025 08/15/2020, 07, 08/18/2018, Additional history exists Pneumococcal Vaccine: 65+ [...] this encounter Medical Devices Implanted Type Area Sash Repairer Device Identifier Shelf Expiration Date Model / Serial / Lot Lens Intraoc 20.0 - [id number] - [id number] Implanted:Qty: 1 on 09/26/2021 by Joni Moreno MD at OR [facility] Left: Eye BAUSCH & LOMB 04/20/2026 [id number] / [id number] / [id number] Lens Intraoc 20.0 - [id number] - [id number] Implanted:Qty: 1 on 10/10/2021 by Joni Moreno MD at OR [facility] Right: Eye BAUSCH & LOMB 05/21/2026 [id number] / [id number] / [id number] Sureclip 16mm 235cm - [id number] Implanted:Qty: 2 on 08/03/2022 by Enid John MD at ENDOSCOPY [facility] Colon MICRO TECH ENDOSCOPY 09/28/2024 [id number] / / documented as of this encounter Care Teams Interior Painter Relationship Specialty Start Date End Date Elias Duarte DO [address] [place] [address] PCP - General Family Medicine 07/16/17 documented as of this encounter
--- OUTSIDE RECORDS SUMMARY | 2023-05-28 23:54 | External Medical Summary | Summary of Care ---
Author Name Unknown Organization [facility] Address [address] [place] [address] Phone [phone] Care Team Providers Care Chief Commercial Officer Name Role Phone Elias Duarte DO Primary Care Provider [phone] Reason for Visit * Reason Comments Outpatient Testing Encounter Details Date Type Department Care Team Description 03/14/2023 Laboratory Laboratory, [facility] [address] [place] [address] [facility] [address] [place] [address] BPH with obstruction/lower urinary tract [...] mRNA, LNP-s, No Pre serve, 2-Dose Series ([employer]) 06/08/2021,11/09/2020,10/19/2020 Covid-19, Mrna, Lnp-s, Pf, B ivalent, [...] MD [address] [place] [address] 05/27/2023 Hospital Encounter Endoscopy Enid John MD [address] [place] [address] 05/27/2023 Surgery Endoscopy Enid John MD [address] [place] [address] COLONOSCOPY FLEXIBLE PROXIMAL DIAGNOSTIC Pending Results Name [...] this encounter Medical Devices Implanted Type Area Box Turner Device Identifier Shelf Expiration Date Model / Serial / Lot Lens Intraoc 20.0 - [id number] - [id number] Implanted:Qty: 1 on 09/26/2021 by Joni Moreno MD at OR [facility] Left: Eye BAUSCH & LOMB 04/20/2026 [id number] / [id number] / [id number] Lens Intraoc 20.0 - [id number] - [id number] Implanted:Qty: 1 on 10/10/2021 by Joni Moreno MD at OR [facility] Right: Eye BAUSCH & LOMB 05/21/2026 [id number] / [id number] / [id number] Sureclip 16mm 235cm - [id number] Implanted:Qty: 2 on 08/03/2022 by Enid John MD at ENDOSCOPY [facility] Colon MICRO TECH ENDOSCOPY 09/28/2024 [id number] / / documented as of this encounter Visit Diagnoses Diagnosis BPH with obstruction/lower urinary tract symptoms Hypertrophy of prostate with urinary obstruction and other lower urinary tract symptoms (LUTS) History of colon polyps Personal history of colonic polyps documented in this encounter Care Teams Chief Commercial Officer Relationship Specialty Start Date End Date Elias Duarte DO [address] [place] [address] PCP - General Family Medicine 07/16/17 documented as of this encounter
--- OUTSIDE RECORDS SUMMARY | 2023-05-28 23:54 | External Medical Summary ---
Author Name Unknown Address Unknown Organization K0G:[facility] [place] [facility] - [address] [place] [address] Laboratory Report Ordering Provider Test Date Status NINFA BLOUNT 01/01/2023 14:10:59 Final Observation Date Value Abnormality Reference (Units ) Status BUN 01/01/2023 14:10:59 19 6-20 (mg/dL) Final Creatinine 01/01/2023 14:10:59 1.0 0.6-1.2 (mg/dL) Final Glomerular filtration rate/1.73 sq M.predicted [Volume Rate/Area] in Serum, Plasma or Blood by Creatinine-based formula (CKD-EPI) 01/01/2023 14:10:59 75 >=60 (mL/min) Final eGFR is calculated based on the CKD-EPI 2020 equation SODIUM 01/01/2023 14:10:59 143 135-146 (m mol/L) Final Potassium 01/01/2023 14:10:59 4.6 3.5-5.1 (m mol/L) Final Cl 01/01/2023 14:10:59 106 98-107 (mm ol/L) Final CO2 01/01/2023 14:10:59 27 22-32 (mmo l/L) Final Anion gap 01/01/2023 14:10:59 10 7-15 (mmol /L) Final Glucose 01/01/2023 14:10:59 98 70-120 (mg /dL) Final Calcium 01/01/2023 14:10:59 9.6 8.4-10.2 ( mg/dL) Final Performing Location [facility]ATORY [place] [address] - [address] [place] [address]
--- OUTSIDE RECORDS SUMMARY | 2023-05-28 23:54 | External Medical Summary | Summary of Care ---
Author Name Unknown Organization [facility] Address [address] [place] [address] Phone [phone] Care Team Providers Care Radiologic Technology Program Director Name Role Phone Elias Duarte DO Primary Care Provider [phone] Reason for Visit * Reason Comments Immunizations Encounter Details Date Type Department Care Team Description 03/28/2023 Nurse Only Ancillary [facility] [address] [place] [address] [facility] [address] [place] [address] Immunizations Allergies No known active allergiesdocumented as of [...] mRNA, LNP-s, No Pre serve, 2-Dose Series ([employer]) 06/08/2021,11/09/2020,10/19/2020 Covid-19, Mrna, Lnp-s, Pf, B ivalent, [...] as of this encounter Progress Notes * Maryjane Haji LPN - 03/28/2023 9:56 AM EDT Patient identified by name and date of . PPD given in left forearm. Patient instructed to return in 48-72 hours to be read. documented in this encounter Plan of Treatment Upcoming Encounters Date Type Specialty Care Team Description 03/30/2023 Nurse Only Ancillary Wkend/Gw, Nurse Fam Prac [address] [place] [address] 05/07/2023 Office Visit Family Medicine Joseph Yoder MD [address] [place] [address] 05/27/2023 Hospital Encounter Endoscopy Enid John MD [address] [place] [address] 05/27/2023 Surgery Endoscopy Enid John MD [address] [place] [address] COLONOSCOPY FLEXIBLE PROXIMAL DIAGNOSTIC Scheduled Orders Name Type Priority Associated Diagnoses Orde r Schedule SARS-COV-2 (COVID-19), NAAT Lab Routine Encounter for screening laboratory testing for COVID-19 virus in asymptomatic patient Ordered: 03/28/2023 Scheduled Procedures Name Priority Associated Diagnoses Date/Ti [...] this encounter Medical Devices Implanted Type Area Supervisor Molding Device Identifier Shelf Expiration Date Model / Serial / Lot Lens Intraoc 20.0 - [id number] - [id number] Implanted:Qty: 1 on 09/26/2021 by Joni Moreno MD at OR [facility] Left: Eye BAUSCH & LOMB 04/20/2026 [id number] / [id number] / [id number] Lens Intraoc 20.0 - [id number] - [id number] Implanted:Qty: 1 on 10/10/2021 by Joni Moreno MD at OR [facility] Right: Eye BAUSCH & LOMB 05/21/2026 [id number] / [id number] / [id number] Sureclip 16mm 235cm - [id number] Implanted:Qty: 2 on 08/03/2022 by Enid John MD at ENDOSCOPY [facility] Colon MICRO TECH ENDOSCOPY 09/28/2024 [id number] / / documented as of this encounter Visit Diagnoses Diagnosis Encounter for screening laboratory testing for COVID-19 virus in asymptomatic patient- Primary Immunization due Need for prophylactic vaccination and inoculation against unspecified single disease History of colon polyps Personal history of colonic polyps documented in this encounter Care Teams Radiologic Technology Program Director Relationship Specialty Start Date End Date Elias Duarte DO [address] [place] [address] PCP - General Family Medicine 07/16/17 documented as of this encounter
--- OUTSIDE RECORDS SUMMARY | 2023-05-28 23:54 | External Medical Summary | Summary of Care ---
Author Name Unknown Organization [facility] Address [address] [address] Phone [phone] Care Team Providers Care Assistant Winemaker Name Role Phone Elias Duarte DO Primary Care Provider [phone] Reason for Visit * Reason Onset Date Comments Forms Request 03/19/2023 Encounter Details Date Type Department Care Team Description 03/19/2023 Telephone Family Practice [facility] [address] [place] [address] Elias Duarte DO [address] [place] [address] Forms Request Allergies No known active allergiesdocumented [...] mRNA, LNP-s, No Pre serve, 2-Dose Series (Vision Critical) 06/08/2021,11/09/2020,10/19/2020 Covid-19, Mrna, Lnp-s, Pf, B ivalent, [...] Form at my desk. Will fax to [facility] once covid test results are in [...] If can they be faxed back to [facility] * Telephone Encounter - CARMEN Sow - 03/26/2023 1:32 PM EDT Joseline from [facility] calling in to check on the status of previous message. Wanted to inform that the patient his sold house this weekend and [facility] is awaiting the DME paperwork for him move into the facility. Callback number for Joseline is [phone]. * Telephone Encounter - YOLI Szymanski - [...] CARMEN Mark - 03/19/2023 1:11 PM EDT [place] of [facility] calling stating that the PA that saw the pt last needs to fill out the paper work. Thanks * Telephone Encounter - Maryjane Haji LPN - 03/19/2023 1:04 PM EDT Provider to address: [place] Reason for Call: No chief complaint on file. Contact: Telephone Call Contact Type: Other: Form Outcome: Paperwork dropped off to our office today by [place] Alan of [facility] for possible ambition to the facility. Pt [...] Wkend/Gw, Nurse Fam Prac [address] [place] [address] 05/07/2023 Office Visit Family Medicine Joseph Yoder MD [address] [place] [address] 05/27/2023 Hospital Encounter Endoscopy Enid John MD [address] [place] [address] 05/27/2023 Surgery Endoscopy Enid John MD [address] [place] [address] COLONOSCOPY FLEXIBLE PROXIMAL DIAGNOSTIC Scheduled Procedures Name [...] this encounter Medical Devices Implanted Type Area Coding Machine Operator Device Identifier Shelf Expiration Date Model / Serial / Lot Lens Intraoc 20.0 - [id number] - [id number] Implanted:Qty: 1 on 09/26/2021 by Joni Moreno MD at OR [facility] Left: Eye BAUSCH & LOMB 04/20/2026 [id number] / [id number] / [id number] Lens Intraoc 20.0 - [id number] - [id number] Implanted:Qty: 1 on 10/10/2021 by Joni Moreno MD at OR [facility] Right: Eye BAUSCH & LOMB 05/21/2026 [id number] / [id number] / [id number] Sureclip 16mm 235cm - [id number] Implanted:Qty: 2 on 08/03/2022 by Enid John MD at ENDOSCOPY [facility] Colon MICRO TECH ENDOSCOPY 09/28/2024 [id number] / / documented as of this encounter Care Teams Assistant Winemaker Relationship Specialty Start Date End Date Elias Duarte DO [address] [facility] [place] [address] PCP - General Family Medicine 07/16/17 documented as of this encounter
--- OUTSIDE RECORDS SUMMARY | 2023-05-28 23:55 | External Medical Summary | Summary of Care ---
Author Name Unknown Organization [place] [address] Care Team Providers Care Display Screen Fabricator Name Role Phone Elias Cleary DO Primary Care Provider Reason for Visit * Reason Onset Date Comments Advice 05/01/2022 Encounter Details Date Type Department Care Team Description 05/01/2022 Telephone Family Practice [facility] [address] [facility] [place] [address] [facility] [address] [facility] [address] Advice Allergies No known active allergiesdocumented as of this encounter (statuses as of 05/07/2022) Medications Medication Sig Dispensed Refills Start Date End Date Status B-12 1000 MCG Oral TabletIndications:B1 2 deficiency Take 1,000 mcg by mouth daily. 90 Tab 1 08/16/2020 Active Aspirin 81 MG Oral Tablet Delayed Release Take 81 mg by mouth daily. 0 Active Pravastatin Sodium 20 MG Oral Tablet (Pravachol)Indicatio ns:Mixed dyslipidemia,PVC (premature ventricular contraction) TAKE ONE TABLET BY MOUTH EACH NIGHT AT BEDTIME 90 Tablet 3 08/02/2021 Active Polyethylene Glycol 3350 17 GM Oral Packet (Miralax) Take by mouth 17 g daily as needed . 0 Active Bisacodyl 10 MG Rectal Suppository (Dulcolax) Administer into the rectum 10 mg daily as needed . 0 Active Finasteride 5 MG Oral Tablet (Proscar)Indications :BPH with obstruction/lower urinary tract symptoms TAKE 1 TABLET BY MOUTH DAILY. 90 Tablet 3 11/21/2021 Active Carbidopa-Levodopa 25-100 MG Oral Tablet (Sinemet)Indications :Parkinson's disease (HCC) Take by mouth 1 Tablet in the morning AND 1 Tablet at noon AND 1 Tablet in the evening AND 1 Tablet before bedtime. 360 Tablet 1 11/21/2021 Active Carbidopa-Levodopa ER 25-100 MG Oral Tablet Extended Release (Sinemet CR)Indications:Parki nson's disease (HCC) Take by mouth 1 Tablet before bedtime. 90 Tablet 1 11/21/2021 Active Meclizine HCl 25 MG Oral Tablet (Antivert)Indication s:Vertigo Take by mouth 1 Tablet as needed in the morning AND 1 Tablet as needed at noon AND 1 Tablet as needed in the evening for Dizziness. 30 Tablet 1 02/12/2022 Active Metoprolol Succinate ER 25 MG Oral Tablet Extended Release 24 Hour (toPROL XL)Indications:Sympt omatic PVCs TAKE ONE TABLET BY MOUTH DAILY 90 Tablet 3 02/15/2022 Active Tamsulosin HCl 0.4 MG Oral Capsule (Flomax)Indications: BPH with obstruction/lower urinary tract symptoms TAKE ONE CAPSULE BY MOUTH AT BEDTIME 90 Capsule 1 02/22/2022 Active DULoxetine HCl 30 MG Oral Capsule Delayed Release Particles (Cymbalta)Indication s:Lumbar degenerative disc disease,Episode of recurrent major depressive disorder, unspecified depression episode severity (HCC) TAKE ONE CAPSULE BY MOUTH DAILY DO NOT CRUSH CUT OR CHEW 90 Capsule 1 02/22/2022 Active documented as of this encounter (statuses as of 05/07/2022) Active Problems Problem Noted Date BPH with [...] as of this encounter (statuses as of 05/07/2022) Resolved Problems Problem Noted Date Resolved Date [...] as of this encounter (statuses as of 05/07/2022) Immunizations Name Administration Dates Next Due COVID-19 mRNA, LNP-s, No Pre serve, 2-Dose Series (Seafile) 06/08/2021,11/09/2020,10/19/2020 DTaP - Dipth/Tet/Acell Pertussis 07/14/2009 Pneumococcal Conjugate Vacc, 13 Valent (Prevnar) 03/06/2016 Pneumococcal Polysaccharide PPV23 (Pneumovax) 08/19/2013 Seasonal Influenza, Quadriva lent, No Preserve, 6 [...] Tobacco Use Types Packs/Day Years Used Date Former Smoker Cigarettes 1 12 Quit: 07/22 Smokeless Tobacco: Never Used Alcohol Use Standard Drinks/Week Comments No 0 [...] encounter Miscellaneous Notes * Telephone Encounter - Crystal Douglas LPN - 05/07/2022 9:48 AM EDT Left detailed message on identified voice mail. * Telephone Encounter - Elias Cleary DO - 05/03/2022 8:33 PM EDT Advise schedule COVID booster now. Patient does not require any additional Shingrix vaccinations. * Telephone Encounter - CARMEN Hansen - 05/01/2022 11:44 AM EDT Pt is asking if Dr Cleary suggests that he have the new COVID-19 booster shot? If yes, he wants to know what timeframe he would suggest him having it? Last booster was on 06/08/2021. He is also asking if he is due for a Shingles vaccine? Please advise, documented in this encounter Plan of Treatment Upcoming Encounters Date Type Specialty Care Team Description 08/03/2022 Hospital Encounter Endoscopy Enid John MD 132 [facility] [place] [address] 08/03/2022 Surgery Endoscopy Enid John MD [address] [place] [address] COLONOSCOPY FLEXIBLE PROXIMAL DIAGNOSTIC 11/30/2022 Office Visit Neurology Tone Chavez, DO [address] [place] [facility] [address] Scheduled Procedures Name Priority Associated Diagnoses Date/Ti me COLONOSCOPY FLEXIBLE PROXIMAL DIAGNOSTIC Recall History of colon polyps 08/03/2022 10:45 AM EST Health Maintenance Due Date Last Done Comments Depression Screening, Annual for Pts 12 and Over 02/07/2021 02/08/2020 COLONOSCOPY-ANNUAL AGES 18-100 03/08/2021 03/08/2020, 03/08/2020, 12/28/2015, Additional history exists COVID-19 Vaccine (4 - Booster for Pfizer series) 08/03/2021 06/08/2021, 11/09/2020, 10/19/2020 Influenza Vaccine (FLU shot) (#1) 2022 04/04/2021, 05/05/2020, 08/04/2019, Additional history exists DTaP,Tdap,and Td Vaccines (3 - Td or Tdap) 02/13/2024 02/12/2014, 07/14/2009 Lipid Panel 08/15/2025 08/15/2020, 01/20, 08/18/2018, Additional history exists Pneumococcal Vaccine: 65+ Years Completed 03/06/2016, 08/19/2013 ABDOMINAL AORTIC ANEURYSM (AAA) SCREENING Completed 07/25/2017 Zoster Vaccines Completed 02/08/2020, 07/22, 02/12/2014 GARDASIL-HPV IMMUNIZATION SERIES Aged Out No longer eligible based on patient's age to complete this topic Hepatitis B Aged Out No longer eligi ble based on patient's age to complete this topic MENINGOCOCCAL (MENACTRA/MENVEO) Aged Out No longer eligible based on patient's age to complete this topic documented as of this encounter Implants Implanted Type Area Crate Opener Device Identifier Shelf Expiration Date Model / Serial / Lot Lens Intraoc 20.0 - [id number] - [id number] Implanted:Qty: 1 on 09/26/2021 by Joni Moreno MD at OR [facility] Left: Eye BAUSCH & LOMB 04/20/2026 [id number] / [id number] / [id number] Lens Intraoc 20.0 - [id number] - [id number] Implanted:Qty: 1 on 10/10/2021 by Joni Moreno MD at OR [facility] Right: Eye BAUSCH & LOMB 05/21/2026 [id number] / [id number] / [id number] documented as of this encounter Advance Directives Documents on File Type Date Recorded Patient Primary Education Professor Expl anation Advanced Directive Advanced Directive Advanced Directive Advanced Directive Advanced Directive Advanced Directive Advanced Directive Advanced Directive Advanced Directive Advanced Directive Advanced Directive Advanced Directive Advanced Directive Advanced Directive Advanced Directive Advanced Directive Advanced Directive Advanced Directive Advanced Directive Advanced Directive Advanced Directive Advanced Directive Advanced Directive Advanced Directive Advanced Directive Advanced Directive Advanced Directive Advanced Directive Advanced Directive Advanced Directive Advanced Directive Advanced Directive Advanced Directive Advanced Directive 09/26/2021 11:51 AM Advance Directives and Living Will 05/31/2015 12:00 AM ADVANCE DIRECTIVE Care Teams Display Screen Fabricator Relationship Specialty Start Date End Date Elias Cleary DO [address] [place] [address] [place] [address] PCP - General Family Medicine 07/16/17 documented as of this encounter
--- OUTSIDE RECORDS SUMMARY | 2023-05-28 23:55 | External Medical Summary | Summary of Care ---
Author Name Unknown Organization [place] [address] Care Team Providers Care Foundation Engineer Name Role Phone Elias Duarte DO Primary Care Provider [phone] Reason for Visit * Reason Onset Date Comments Medication Administration 05/17/2022 Flu an d/or Pneumo Inj Encounter Details Date Type Department Care Team Description 05/17/2022 [facility] [address] [place] [address] [facility] [facility] [address] [place] [address] Need for prophylactic vaccination and inoculation against influenza* Allergies No known active allergiesdocumented as of this encounter (statuses as of 05/17/2022) Medications Medication Sig Dispensed Refills Start Date [...] as of this encounter (statuses as of 05/17/2022) Active Problems Problem Noted Date BPH with [...] as of this encounter (statuses as of 05/17/2022) Resolved Problems Problem Noted Date Resolved Date [...] as of this encounter (statuses as of 05/17/2022) Immunizations Name Administration Dates Next Due COVID-19 mRNA, LNP-s, No Pre serve, 2-Dose Series (AudioBoo) 06/08/2021,11/09/2020,10/19/2020 Covid-19, Mrna, Lnp-s, Pf, B ivalent Booster, 30 Mcg, IM, 12 yrs and above (AudioBoo) 05/17/2022 DTaP - Dipth/Tet/Acell Pertussis 07/14/2009 Pneumococcal [...] as of this encounter Progress Notes * Nila Lennon LPN - 05/17/2022 2:00 PM EDT PRE - ADMINISTRATION DOCUMENTATION Are you experiencing any cold symptoms or fever? No Have you had Guillain-[place] Syndrome (an illness that causes paralysis) within the last 6 weeks? No Have you had the flu shot in the past? YES Have you ever had a reaction to the flu shot? No Nila Lennon LPN, 05/17/2022 2:00 PM Immunization Administration Documentation Time Out Procedure Performed: Yes Patient Identified (Ask Name/Date of ): Yes Does the patient have a fever greater than 101 degrees today? No Patient allergic to latex? No VFC Stock: No Immunization(s) verified: Yes, Immunization Name: Flu, VIS Sheet(s) given: Yes Verified Side and Site: Yes Verified Shot(s) with Parent(s)/Patient: Yes documented in this encounter Plan of Treatment Upcoming Encounters Date Type Specialty Care Team Description 05/18/2022 Immunization Ancillary [place], Flu Shot Clinic Fam Prac [facility] [place] [address] 08/03/2022 Hospital Encounter Endoscopy Enid John MD [address] [place] [address] 08/03/2022 Surgery Endoscopy Enid John MD [address] [place] [address] COLONOSCOPY FLEXIBLE PROXIMAL DIAGNOSTIC 11/30/2022 Office Visit Neurology Tone Chavez, DO [address] [facility] [place] [address] Scheduled Procedures Name Priority Associated Diagnoses Date/Ti me COLONOSCOPY FLEXIBLE PROXIMAL DIAGNOSTIC Recall History of colon polyps 08/03/2022 10:45 AM EST Health Maintenance Due Date Last Done Comments Depression Screening, Annual for Pts 12 and Over 02/07/2021 02/08/2020 COLONOSCOPY-ANNUAL AGES 18-100 03/08/2021 03/08/2020, 03/08/2020, 12/28/2015, Additional history exists Influenza Vaccine (FLU shot) (#1) 2022 05/17/2022, 04/04/2021, 05/05/2020, Additional history exists DTaP,Tdap,and Td Vaccines (3 - Td or Tdap) 02/13/2024 02/12/2014, 07/14/2009 Lipid Panel 08/15/2025 08/15/2020, 01/20, 08/18/2018, Additional history exists Pneumococcal Vaccine: 65+ Years Completed 03/06/2016, 08/19/2013 ABDOMINAL AORTIC ANEURYSM (AAA) SCREENING Completed 07/25/2017 Zoster Vaccines Completed 02/08/2020, 07/22, 02/12/2014 COVID-19 Vaccine Completed 05/17/2022, , 11/09/2020, Additional history exists GARDASIL-HPV IMMUNIZATION SERIES Aged Out No longer eligible based on patient's age to complete this topic Hepatitis B Aged Out No longer eligi ble based on patient's age to complete this topic MENINGOCOCCAL (MENACTRA/MENVEO) Aged Out No longer eligible based on patient's age to complete this topic documented as of this encounter Implants Implanted Type Area Family Services Specialist Device Identifier Shelf Expiration Date Model / Serial / Lot Lens Intraoc 20.0 - [id number] - [id number] Implanted:Qty: 1 on 09/26/2021 by Joni Moreno MD at OR [facility] Left: Eye BAUSCH & LOMB 04/20/2026 [id number] / [id number] / [id number] Lens Intraoc 20.0 - [id number] - [id number] Implanted:Qty: 1 on 10/10/2021 by Joni Moreno MD at OR [facility] Right: Eye BAUSCH & LOMB 05/21/2026 [id number] / [id number] / [id number] documented as of this encounter Visit Diagnoses Diagnosis Need for prophylactic vaccination and inoculation against influenza- Primary History of colon polyps Personal history of colonic polyps documented in this encounter Advance Directives Documents on File Type Date Recorded 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
--- OUTSIDE RECORDS SUMMARY | 2023-05-28 23:55 | External Medical Summary | Summary of Care ---
Author Name Unknown Organization [place] [address] Care Team Providers Care Jig Bore Tool Maker Name Role Phone Elias Duarte DO Primary Care Provider [phone] Encounter Details Date Type Department Care Team Description 05/17/2022 Immunization Pharmacy, [facility] [address] [place] [address] [facility] [place] [address] Vaccine Pharmacy [facility] 132 [facility] [place] [address] Arrived Allergies No known active allergiesdocumented as [...] mRNA, LNP-s, No Pre serve, 2-Dose Series (AmberWave) 06/08/2021,11/09/2020,10/19/2020 Covid-19, Mrna, Lnp-s, Pf, B ivalent Booster, 30 Mcg, IM, 12 yrs and above (AmberWave) 05/17/2022 DTaP - Dipth/Tet/Acell Pertussis 07/14/2009 Pneumococcal [...] Encounters Date Type Specialty Care Team Description 05/17/2022 Immunization Ancillary [facility] [place] [address] Need for prophylactic vaccination and inoculation against influenza* 05/18/2022 Immunization Ancillary [place] [facility] [address] [place] [address] 08/03/2022 Hospital Encounter Endoscopy Enid John MD [address] [place] [address] 08/03/2022 Surgery Endoscopy Enid John MD [address] [place] [address] COLONOSCOPY FLEXIBLE PROXIMAL DIAGNOSTIC 11/30/2022 Office Visit Neurology Tone Chavez, DO [address] [facility] [address] [place] [place] [address] Scheduled Procedures Name Priority Associated Diagnoses Date/Ti [...] of this encounter Implants Implanted Type Area Apartment Leasing Specialist Device Identifier Shelf Expiration Date Model / Serial / Lot Lens Intraoc 20.0 - [id number] - [id number] Implanted:Qty: 1 on 09/26/2021 by Joni Moreno MD at OR [facility] Left: Eye BAUSCH & LOMB 04/20/2026 [id number] / [id number] / [id number] Lens Intraoc 20.0 - [id number] - [id number] Implanted:Qty: 1 on 10/10/2021 by Joni Moreno MD at OR [facility] Right: Eye BAUSCH & LOMB 05/21/2026 [id number] / [id number] / [id number] documented as of this encounter Advance Directives Documents on File Type Date Recorded Patient Crystallizer Operator Expl anation Advanced Directive Advanced Directive Advanced [...] 05/31/2015 12:00 AM ADVANCE DIRECTIVE Care Teams Jig Bore Tool Maker Relationship Specialty Start Date End Date Elias Duarte DO [address] [facility] [place] [address] PCP - General Family Medicine 07/16/17 documented as of this encounter
--- OUTSIDE RECORDS SUMMARY | 2023-05-28 23:55 | External Medical Summary | Summary of Care ---
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 Name Role Phone Elias Duarte DO Primary Care Provider [phone] Reason for Visit * Auth/Cert Specialty Diagnoses / Procedures Referred By Reina perez Referred To Contact Diagnoses History of colon polyps History of colon polyps [Z86.010] Procedures COLONOSCOPY, DIAGNOSTIC (RECTUM) COLONOSCOPY FLEXIBLE PROXIMAL DIAGNOSTIC Referral ID Status Reason Start Date Expiration Date Visits Re quested Visits Authorized [id number] [phone] Encounter Details Date Type Department Care Team Description 08/03/2022 Hospital Encounter ENDO [facility], Endoscopy Room [facility] [address] [facility] [place] [id number] Enid John MD [address] [facility] [place] [id number] Colonoscopy Allergies No known active allergiesdocumented as of this encounter (statuses as of 08/04/2022) Medications Medication Sig Dispensed Refills Start Date [...] CHEW 90 Capsule 0 06/21/2022 06/21/2023 Active Tamsulosin HCl 0.4 MG Oral Capsule (Flomax)Indications :BPH with obstruction/lower urinary tract symptoms TAKE ONE CAPSULE BY MOUTH AT BEDTIME 90 Capsule 1 02/22/2022 02/22/2023 Active Metoprolol Succinate ER 25 MG Oral [...] BY MOUTH DAILY 90 Tablet 3 11/21/2021 11/21/2022 Active Carbidopa-Levodopa 25-100 MG Oral Tablet (Sinemet)Indication s:Parkinson's disease (HCC) TAKE ONE TABLET BY MOUTH IN THE MORNING THEN ONE TABLET AT NOON THEN ONE TABLET IN THE EVENING AND ONE TABLET BEFORE BEDTIME 360 Tablet 1 11/21/2021 11/21/2022 Active Carbidopa-Levodopa ER 25-100 MG Oral Tablet Extended Release (Sinemet CR)Indications:Park inson's disease (HCC) TAKE 1 TABLET BY MOUTH BEFORE BEDTIME 90 Tablet 1 11/21/2021 11/21/2022 Active Pravastatin Sodium 20 MG Oral Tablet (Pravachol)Indicati ons:Mixed dyslipidemia,PVC (premature ventricular contraction) TAKE ONE TABLET BY MOUTH EACH NIGHT AT BEDTIME 90 Tablet 3 08/02/2021 08/02/2022 documented as of this encounter (statuses as of 08/04/2022) Active Problems Problem Noted Date BPH with [...] as of this encounter (statuses as of 08/04/2022) Resolved Problems Problem Noted Date Resolved Date [...] as of this encounter (statuses as of 08/04/2022) Immunizations Name Administration Dates Next Due COVID-19 mRNA, LNP-s, No Pre serve, 2-Dose Series ([employer]) 06/08/2021,11/09/2020,10/19/2020 Covid-19, Mrna, Lnp-s, Pf, B ivalent Booster, 30 Mcg, IM, 12 yrs and above ([employer]) 05/17/2022 DTaP - Dipth/Tet/Acell Pertussis 07/14/2009 Pneumococcal [...] Sign Reading Time Taken Comments Blood Pressure 172/105 08/03/2022 12:35 PM EST Pulse 85 08/03/2022 12:35 PM EST Temperature 36.7 C (98 F) 08/03/2022 12:35 PM EST Respiratory Rate 20 08/03/2022 12:35 PM EST Oxygen Saturation 98% 08/03/2022 12:35 PM EST Inhaled Oxygen Concentration - - Weight 74.4 kg (164 lb) 08/03/2022 10:46 AM EST Height 175.3 cm (5' 9.02") 08/03/2022 10:46 AM Geni Body Mass Index 24.21 08/03/2022 10:46 AM EST documented in this encounter H&P Notes * Enid John MD - 08/03/2022 11:09 AM EST Endoscopy Pre-Procedure Assessment Name: Jacques Alicea Date: 08/03/2022 Time: 11:09 AM Procedure(s): Colonoscopy; with Indication(s) of colon polyp surveillance Endoscopy Pre-Procedure Assessment: Prior to the procedure, the patient is identified. The patient's history, medications and allergieshave been reviewed. The patient is competent. The risks and benefits of the proposed procedure and the planned sedation have been discussed with the patient. All questions have been answered and informed consent for the procedure has been obtained. Prior to Admission medications Medication Sig Last Dose Discont. DULoxetine HCl 30 MG Oral Capsule Delayed Release Particles (Cymbalta) TAKE ONE CAPSULE BY MOUTH DAILY DO NOT CRUSH CUT OR CHEW 08/02/2022 Tamsulosin HCl 0.4 MG Oral Capsule (Flomax) TAKE ONE CAPSULE BY MOUTH AT BEDTIME 08/02/2022 Metoprolol Succinate ER 25 MG Oral Tablet Extended Release 24 Hour (toPROL XL) TAKE 1 TABLET BY MOUTH DAILY 08/02/2022 Carbidopa-Levodopa 25-100 MG Oral Tablet (Sinemet) TAKE ONE TABLET BY MOUTH IN THE MORNING THEN ONETABLET AT NOON THEN ONE TABLET IN THE EVENING AND ONE TABLET BEFORE BEDTIME 08/03/2022 Carbidopa-Levodopa ER 25-100 MG Oral Tablet Extended Release (Sinemet CR) TAKE 1 TABLET BY MOUTH BEFORE BEDTIME 08/02/2022 Finasteride 5 MG Oral Tablet (Proscar) TAKE ONE TABLET BY MOUTH DAILY 08/02/2022 Polyethylene Glycol 3350 17 GM Oral Packet (Miralax) Take 1 Packet by mouth daily as needed. 08/03/2022 Pravastatin Sodium 20 MG Oral Tablet (Pravachol) TAKE ONE TABLET BY MOUTH EACH NIGHT AT BEDTIME 07/29/2022 Aspirin 81 MG Oral Tablet Delayed Release Take 1 Tablet by mouth in the morning. 08/02/2022 B-12 1000 MCG Oral Tablet Take 1,000 mcg by mouth daily. 08/02/2022 Meclizine HCl 25 MG Oral Tablet Chewable CHEW ONE TABLET BY MOUTH NEEDED IN THE MORNING AND ONE TABLET NEEDED AT NOON AND ONE TABLET NEEDED IN THE EVENING FOR DIZZINESS Over 30 Days Meclizine HCl 25 MG Oral Tablet Chewable TAKE 1 TABLET BY MOUTH NEEDED IN THE MORNING, TAKE 1 TABLET NEEDED AT NOON AND TAKE 1 TABLET NEEDED IN THE EVENING FOR DIZZINESS Over 30 Days Bisacodyl 10 MG Rectal Suppository Administer into the rectum 10 mg daily as needed . Patient not taking: Reported on 07/30/2022 Not Taking Review of patient's allergies indicates: No Known Allergies BP 181/91 | Pulse 85 | Temp 36.8 C (98.2 F) (Tympanic) | Resp 20 | Ht 1.753 m (5' 9.02") | Wt 74.4 kg (164 lb) | SpO2 98% | BMI 24.21 kg/m | BSA 1.9 m Physical Exam: Mental Status Examination: alert and oriented. Airway Examination: normal oropharyngeal airway and neck mobility. Respiratory Examination: clear to auscultation. CV Examination: normal. ASA Grade: III - A patient with severe systemic disease. Abdomen: negative This patient has undergone a preprocedural evaluation. A determination has been made to proceed with the planned procedure under [facility] procedural guidelines and the [facility] Non-Emergent, Elective Medical Services and Treatment Recommendations (published on 10-27-19). The community and hospital prevalence of COVID-19 has been discussed as well as this patient's specific risks associated with SARS-CoV-19 infection. Based upon the clinical acuity and patient-specific care considerations, this procedure is deemed a Tier II - Intermediate acuity treatment or service with either progression or the threat of progressive disease related to the delay in treatment. Not providing the service has the potential for increasing morbidity or mortality. After reviewing the risks and benefits, the patient is deemed in satisfactory condition to undergo the procedure. The anesthesia plan is to use general anesthesia. Enid John MD 08/03/2022 documented in this encounter Procedure Notes * Elias Duarte DO - 08/03/2022 10:59 AM ESTAssociated Order(s): COLONOSCOPY [facility] Patient Name: Jacques Alicea Procedure Date: 08/03/2022 10:59 AM Date of : 1950 Admit Type: Outpatient Note Status: Finalized Date of : 1950 Admit Type: Outpatient Age: 72 Room: [facility] 3 Gender: Male Note Status: Finalized Procedure: Colonoscopy Indications: Surveillance: Personal history of adenomatous polyps on last colonoscopy 3 years ago Providers: Enid John MD (Doctor), Marcus Munguia MD (Fellow), Kelley Montesinos RN Patient Profile: This is a 72 year old male. Refer to note in patient chart for documentation of history and physical. Referring MD: Elias Duarte (Referring MD) Medicines: See the Anesthesia note for documentation of the administered medications Complications: No immediate complications. Procedure: Pre-Anesthesia Assessment: - The supervising physician was present for the entire procedure from scope insertion until scope withdrawal. - ASA Grade Assessment: III - A patient with severe systemic disease. - Prior to the procedure, a History and Physical was performed, and patient medication allergies have been reviewed. The patient's tolerance of previous anesthesia has been reviewed. - Respiratory Examination: clear to auscultation. - CV Examination: normal. - The risks and benefits of the procedure and the sedation options and risks were discussed with the patient. All questions were answered and informed consent was obtained. - Patient identification and proposed procedure were verified prior to the procedure by the physician, the nurse and the medical assistant internal medicine. The procedure was verified in the pre-procedure area in the procedure room. - The medication list for this patient has been reviewed prior to the procedure and has been determined that the patient may proceed with the planned study. Any medication changes made as a result of the findings of this procedure have been discussed with the patient and/or customer support representative at the time of discharge from the facility. After I obtained informed consent, the scope was passed under direct vision. All instruments were visually inspected immediately before and after removal from the patient to ensure they are fully intact. Throughout the procedure, the patient's blood pressure, pulse, and oxygen saturations were monitored continuously. The [id number] Colonoscope ([id number]) was introduced through the anus and advanced to the terminal ileum. The colonoscopy was performed with some difficulty due to prep as well as location/shape of polyp. The quality of the bowel preparation was fair. Findings & Specimens: The perianal and digital rectal examinations were normal. Multiple small and large-mouthed diverticula were found in the sigmoid colon and descending colon. A 1 mm polyp was found in the hepatic flexure. The polyp was sessile. The polyp was removed with a cold biopsy forceps. Resection and retrieval were complete. There was a 15 mm granular homogenous lateral spreading lesion. The pit pattern was JNET 2 a by NBI. This was injected and then removed en bloc with a snare. Polypectomy defect closed with 2 clips. There were two areas of tattoo in the rectosigmoid colon and at the hepatic flexure without evidence of recurrent polyp. Hemorrhoids on retroflexion. The ileum was normal. Recommendation: Discharge pt home. Hold NSAIDs for 5 days. Repeat exam in 6-12 months. Enid John MD 08/03/2022 12:30:13 PM This report has been signed electronically. Marcus Munguia MD documented in this encounter Nursing Notes * Ladarius Nicholson RN - 08/03/2022 1:15 PM EST Patient is alert, pain free, tolerating po fluids prior to discharge. Patient has been visited by Dr. John. Patient has received and demonstrates understanding of discharge instructions. Patient is transported via w/c to private auto accompanied by endo staff. * Ladarius Nicholson RN - 08/03/2022 1:02 PM EST Pt ambulated to bathroom, incontinent of large amount of urine. Pt cleaned and depends placed on pt. Pt dressed and ambulated to room. Pt sitting in chair denies any pain or dizziness. * Kati Zepeda RN - 08/03/2022 12:19 PM EST Patient transferred to post endo s/p colonoscopy. Patient awake, arouses easily, lying on left side, urinary incontinence. Respirations are even and unlabored on room air. NSR in the 78 on the monitor. Abdomen soft and non distended. Vital signs stable. * Kelley Montesinos RN - 08/03/2022 12:02 PM EST See anesthesia record for medication administered during procedure. Kelley Montesinos RN Specimen(s) and location(s) verified with physician post procedure 12:02 PM Kelley Montesinos RN Mid abdominal pressure given per Dr. John to assist with scope advancement. Pt tolerated well * Charmaine Lynch RN - 08/03/2022 10:49 AM EST The following pt discharge instructions reviewed with pt prior to prodedure: No driving today. No alcohol today. No signing of legal documents. Rest as much as possible today and can return to normal activities tomorrow. No operating any heavy equipment today. Diet as tolerated. Pt verbalized understanding. Patient prepped, call means within reach of patient. documented in this encounter Plan of Treatment Upcoming Encounters Date Type Specialty Care Team Description 11/30/2022 Office Visit Neurology Tone Chavez, DO [address] [facility] [place], [place] [address] 02/04/2023 Hospital Encounter Endoscopy Enid John MD [address] [place] [address] 02/04/2023 Surgery Endoscopy Enid John MD [address] [place] [id number] COLONOSCOPY FLEXIBLE PROXIMAL DIAGNOSTIC Pending Results Name Type Priority Associated Diagnoses Date /Time SURGICAL PATHOLOGY Pathology Routine History of colon polyps 08/03/2022 12:15 PM EST Scheduled Orders Name Type Priority Associated Diagnoses Orde r Schedule SURGICAL PATHOLOGY Pathology Routine History of colon polyps Release Upon Ordering for 1 Occurrences starting 08/03/2022, 1 completed Scheduled Procedures Name Priority Associated Diagnoses Date/Ti me COLONOSCOPY FLEXIBLE PROXIMAL DIAGNOSTIC Recall History of colon polyps 02/04/2023 9:00 AM EDT Health Maintenance Due Date Last Done Comments Depression Screening, Annual for Pts 12 and Over 02/07/2021 02/08/2020 COLONOSCOPY-ANNUAL AGES 18-100 08/03/2023 08/03/2022, 03/08/2020, 03/08/2020, Additional history exists DTaP,Tdap,and Td Vaccines [...] COLONOSCOPY-EVERY 3 YRS AGES 18-100 Discontinued 08/03/2022, 03/08/2020, 03/08/2020, Additional history exists GARDASIL-HPV IMMUNIZATION SERIES Aged Out No longer eligible based on patient's age to complete this topic Hepatitis B Aged Out No longer eligi ble based on patient's age to complete this topic MENINGOCOCCAL (MENACTRA/MENVEO) Aged Out No longer eligible based on patient's age to complete this topic documented as of this encounter Medical Devices Implanted Type Area Fountain Pen Turner Device Identifier Shelf Expiration Date Model / Serial / Lot Lens Intraoc 20.0 - [id number] - [id number] Implanted:Qty: 1 on 09/26/2021 by Joni Moreno MD at OR [facility] Left: Eye [employer] 04/20/2026 [id number] / [id number] / [id number] Lens Intraoc 20.0 - [id number] - [id number] Implanted:Qty: 1 on 10/10/2021 by Joni Moreno MD at OR [facility] Right: Eye [employer] 05/21/2026 [id number] / [id number] / [id number] Sureclip 16mm 235cm - [id number] Implanted:Qty: 2 on 08/03/2022 by Enid John MD at ENDOSCOPY [facility] Colon MICRO TECH ENDOSCOPY 09/28/2024 [id number] / / documented as of this encounter Procedures Procedure Name Priority Date/Time Associated Diagnosis Comments COLONOSCOPY 08/03/2022 10:59 AM EST documented in this encounter Results * COLONOSCOPY (08/03/2022 10:59 AM EST) 08/03/2022 10:5 9 AM EST Procedure Note DO Donna Wilson 08/03/2022 10:59 AM EST [facility] Patient Name: Jacques Alicea Procedure Date: 08/03/2022 10:59 AM Date of : 1950 Admit Type: Outpatient Note Status:Finalized Date of : 1950 Admit Type: Outpatient Age: 72 Room: [facility] 3 Gender: Male Note Status: Finalized Procedure: Colonoscopy Indications: Surveillance: Personal history of adenomatouspolyps on last colonoscopy 3 years ago Providers: Enid John MD (Doctor), Marcus Moulton MD (Fellow), Kelley Montesinos RN Patient Profile: This is a 72 year old male. Refer to note inpatient chart for documentation of history and physical. Referring MD: Elias Duarte (Referring MD) Medicines: See the Anesthesia note for documentation of the administered medications Complications: No immediate complications. Procedure: Pre-Anesthesia Assessment: - The supervising physician was present for theentire procedure from scope insertion until scopewithdrawal. - ASA Grade Assessment: III - A patient with severe systemic disease. - Prior to the procedure, a History and Physicalwas performed, and patient medication allergies havebeen reviewed. The patient's tolerance of previous anesthesia has been reviewed. - Respiratory Examination: clear to auscultation. - CV Examination: normal. - The risks and benefits of the procedure and the sedation options and risks were discussed with the patient. All questions were answered and informed consent was obtained. - Patient identification and proposed procedurewere verified prior to the procedure by the physician,the nurse and the medical assistant internal medicine. The procedure wasverified in the pre-procedure area in the procedure room. - The medication list for this patient has been reviewed prior to the procedure and has been determined that the patient may proceed with the planned study. Any medication changes made as aresult of the findings of this procedure have beendiscussed with the patient and/or customer support representative at the timeof discharge from the facility. After I obtained informed consent, the scope was passed under direct vision. All instruments were visually inspected immediately before and after removal from the patient to ensure they are fully intact. Throughout the procedure, the patient's blood pressure, pulse, and oxygen saturations weremonitored continuously. The [id number] Colonoscope ([id number])was introduced through the anus and advanced to the terminal ileum. The colonoscopy was performed with some difficulty due to prep as well aslocation/shape of polyp. The quality of the bowel preparation was fair. Findings & Specimens: The perianal and digital rectal examinations were normal. Multiple small and large-mouthed diverticula were found in thesigmoid colon and descending colon. A 1 mm polyp was found in the hepatic flexure. The polyp was sessile. The polyp was removed with a cold biopsy forceps. Resection and retrieval were complete. There was a 15 mm granular homogenous lateral spreading lesion. Thepit pattern was JNET 2 a by NBI. This was injected and then removed enbloc with a snare. Polypectomy defect closed with 2 clips. There were two areas of tattoo in the rectosigmoid colon and at the hepatic flexure without evidence of recurrent polyp. Hemorrhoids on retroflexion. The ileum was normal. Recommendation: Discharge pt home. Hold NSAIDs for 5 days. Repeatexam in 6-12 months. Enid John MD 08/03/2022 12:30:13 PM This report has been signed electronically. Marcus Munguia MD Elias Duarte DO GASTRO LOWER documented in this encounter Visit Diagnoses Diagnosis History of colon polyps Personal history of colonic polyps History of colon polyps Personal history of colonic polyps documented in this encounter Administered Medications Inactive Administered Medications - up to 3 most recent administrations Medication Order MAR Action Action Date Dose Rate Site isolyte-S pH 7.4 infusion Intravenous, at 100 mL/hr, Plasma-LYTE 148, isolyte-S, and isolyte-S pH 7.4 are considered equivalent - including for MAR barcode scanning., CONTINUOUS, Starting on Sat08/03/22 at 1045, Until Sat08/03/22 at 1722, Pre-Op Continue from Pre-Op 08/03/2022 11:08 AM EST 100 mL/hr New Bag 08/03/2022 10:45 AM EST 100 mL/hr documented in this encounter Active and Recently Administered Medications Times are shown in EST. 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
--- OUTSIDE RECORDS SUMMARY | 2023-05-28 23:55 | External Medical Summary | Summary of Care ---
Author Name Unknown Organization [place] [address] Care Team Providers Care Intensivist Name Role Phone Elias Duarte DO Primary Care Provider Reason for Visit * Reason Comments Medication Refill Encounter Details Date Type Department Care Team Description 08/28/2022 Refill Family Practice [facility] [address] [facility] [place] [id number] Tone Chavez [facility] [address] [facility] [address] Parkinson's disease (H[facility]) Allergies No known active allergiesdocumented as of this encounter (statuses as of 08/28/2022) Medications Medication Sig Dispensed Refills Start Date [...] FOR DIZZINESS 30 Tablet 1 06/21/2022 3 Active DULoxetine HCl 30 MG Oral Capsule Delayed Release Particles (Cymbalta)Indicati ons:Lumbar degenerative disc disease,Episode of recurrent major depressive disorder, unspecified depression episode severity (HCC) TAKE ONE CAPSULE BY MOUTH DAILY DO NOT CRUSH CUT OR CHEW 90 Capsule 0 06/21/2022 3 Active Tamsulosin HCl 0.4 MG Oral Capsule (Flomax)Indication s:BPH with obstruction/lower urinary tract symptoms TAKE ONE CAPSULE BY MOUTH AT BEDTIME 90 Capsule 1 02/22/2022 3 Active Metoprolol Succinate ER 25 MG [...] BEDTIME 360 Tablet 1 11/21/2021 3 Active Carbidopa-Levodopa ER 25-100 MG Oral Tablet Extended Release (Sinemet CR)Indications:Par kinson's disease (HCC) TAKE 1 TABLET BY MOUTH BEFORE BEDTIME 90 Tablet 1 08/28/2022 4 Active Carbidopa-Levodopa ER 25-100 MG Oral Tablet Extended Release (Sinemet CR)Indications:Par kinson's disease (HCC) TAKE 1 TABLET BY MOUTH BEFORE BEDTIME 90 Tablet 1 11/21/2021 3 Discontinue d(Refill) documented as of this encounter (statuses as of 08/28/2022) Active Problems Problem Noted Date BPH with [...] as of this encounter (statuses as of 08/28/2022) Resolved Problems Problem Noted Date Resolved Date [...] as of this encounter (statuses as of 08/28/2022) Immunizations Name Administration Dates Next Due COVID-19 mRNA, LNP-s, No Pre serve, 2-Dose Series ([employer]) 06/08/2021,11/09/2020,10/19/2020 Covid-19, Mrna, Lnp-s, Pf, B ivalent Booster, 30 Mcg, IM, 12 yrs and above ([employer]) 05/17/2022 DTaP - Dipth/Tet/Acell Pertussis 07/14/2009 Pneumococcal [...] Telephone Encounter - Elias Duarte DO - 08/28/2022 12:56 PM ESTSigned Prescriptions: Disp Refills Carbidopa-Levodopa ER 25-100 MG Oral Table*90 Tab*1 Sig: TAKE 1 TABLET BY MOUTH BEFORE BEDTIME Authorizing Provider: ELIAS DUARTE * Telephone Encounter - Maryjane Haji LPN - 08/28/2022 11:15 AM ESTPending Prescriptions: Disp Refills Carbidopa-Levodopa ER 25-100 MG Oral Table*90 Tab*1 Sig: TAKE 1 TABLET BY MOUTH BEFORE BEDTIME * Telephone Encounter - Maryjane Haji LPN - 08/28/2022 11:15 AM EST Did you pend patient's preferred pharmacy and medication before forwarding?yes Pharmacy: [facility] Pending Prescriptions: Disp Refills Carbidopa-Levodopa ER 25-100 MG Oral Tabl*90 Tab*1 Sig: TAKE 1 TABLET BY MOUTH BEFORE BEDTIME Last Visit: 02/12/2022 (in office), Visit date not found (telemedicine) Next Visit: Visit date not found If no future appointments scheduled, and last appointment is greater than a year ago, please schedule patient for a follow-up appointment Last date the medication was ordered: 11/21/21 Is this request for a controlled substance?No [...] AM HGBA1C 5.7 (H) 08/15/2020 02:14 PM * Telephone Encounter - Gricelda Sultana - 08/28/2022 9:20 AM ESTPending Prescriptions: Disp Refills Carbidopa-Levodopa ER 25-100 MG Oral Table*90 Tab*1 Sig: TAKE 1TABLET BY MOUTH BEFORE BEDTIME documented in this encounter Plan of Treatment Upcoming Encounters Date Type Specialty Care Team Description 11/30/2022 Office Visit Neurology Tone Chavez, DO [address] [place] [address] 02/04/2023 Hospital Encounter Endoscopy Enid John MD [address] [facility] [place] [address] 02/04/2023 Surgery Endoscopy Enid John MD [address] [place] [address] COLONOSCOPY FLEXIBLE PROXIMAL DIAGNOSTIC Scheduled Procedures Name [...] this encounter Medical Devices Implanted Type Area Synthetic Filament Spinner Device Identifier Shelf Expiration Date Model / Serial / Lot Lens Intraoc 20.0 - [id number] - [id number] Implanted:Qty: 1 on 09/26/2021 by Joni Moreno MD at OR [facility] Left: Eye BAUSCH [employer] LOMB 04/20/2026 [id number] / [id number] / [id number] Lens Intraoc 20.0 - [id number] - [id number] Implanted:Qty: 1 on 10/10/2021 by Joni Moreno MD at OR [facility] Right: Eye BAUSCH & LOMB 05/21/2026 [id number] / [id number] / [id number] Sureclip 16mm 235cm - [id number] Implanted:Qty: 2 on 08/03/2022 by Enid John MD at ENDOSCOPY [facility] Colon MICRO TECH ENDOSCOPY 09/28/2024 [id number] / / documented as of this encounter Visit Diagnoses Diagnosis Parkinson's disease (HCC) Paralysis agitans History of colon polyps Personal history of colonic polyps documented in this encounter Care Teams Intensivist Relationship Specialty Start Date End Date Elias Duarte DO [address] [place] [address] PCP - General Family Medicine 07/16/17 documented as of this encounter
--- OUTSIDE RECORDS SUMMARY | 2023-05-28 23:55 | External Medical Summary | Summary of Care ---
Author Name Unknown Organization [facility] [address] Care Team Providers Care Sheet Metal Erector Name Role Phone Elias Duarte DO Primary Care Provider Reason for Visit * Reason Onset Date Comments Order Request 03/30/2022 Encounter Details Date Type Department Care Team Description 03/30/2022 Telephone [facility] [address] [facility] [address] [facility] [address] [facility] [address] Order Request Allergies No known active allergiesdocumented as of this encounter (statuses as of 03/30/2022) Medications Medication Sig Dispensed Refills Start Date [...] as of this encounter (statuses as of 03/30/2022) Active Problems Problem Noted Date BPH with [...] as of this encounter (statuses as of 03/30/2022) Resolved Problems Problem Noted Date Resolved Date [...] as of this encounter (statuses as of 03/30/2022) Immunizations Name Administration Dates Next Due COVID-19 mRNA, LNP-s, No Pre serve, 2-Dose Series ([employer]) 06/08/2021,11/09/2020,10/19/2020 DTaP - Dipth/Tet/Acell Pertussis 07/14/2009 Pneumococcal [...] Miscellaneous Notes * Telephone Encounter - CARMEN Wylie - 03/30/2022 4:34 PM EDT Patient scheduled and aware of 08/[address] John. Prep instructions mailed to home address. * Telephone Encounter - CARMEN Pope - 03/30/2022 3:05 PM EDT Pt is now looking to schedule his Colonoscopy. Order placed on 02/12 * Telephone Encounter - Lucila Ramirez LPN - 03/30/2022 3:03 PM EDT There is an active colonoscopy Gi referral that was done on 02/12 * Telephone Encounter - CARMEN Forbes - 03/30/2022 1:24 PM EDT Patient calling, when he last saw Dr Duarte, he was under the impression that he was going to make his colonoscopy and he has not heard anything. I did check and don't see any order in place. Please call him back to advise. documented in this encounter Plan of Treatment Upcoming Encounters Date Type Specialty Care Team Description 08/03/2022 Hospital Encounter Endoscopy Enid John MD [address] [place] [address] 08/03/2022 Surgery Endoscopy Enid John MD [address] [place] [address] COLONOSCOPY FLEXIBLE PROXIMAL DIAGNOSTIC 11/30/2022 Office Visit Neurology Tone Chavez, DO [address] [facility] [address] Scheduled Procedures Name Priority Associated Diagnoses Date/Ti me COLONOSCOPY FLEXIBLE PROXIMAL DIAGNOSTIC Recall History of colon polyps 08/03/2022 10:45 AM EST Health Maintenance Due Date Last Done Comments Depression Screening, Annual for Pts 12 and Over 02/07/2021 02/08/2020 COLONOSCOPY-ANNUAL AGES 18-100 03/08/2021 03/08/2020, 03/08/2020, 12/28/2015, Additional history exists COVID-19 Vaccine (4 - Booster for Pfizer series) 10/06/2021 06/08/2021, 11/09/2020, 10/19/2020 Influenza Vaccine (FLU shot) [...] of this encounter Implants Implanted Type Area Automotive Parts Salesperson Device Identifier Shelf Expiration Date Model / Serial / Lot Lens Intraoc 20.0 - [id number] - [id number] Implanted:Qty: 1 on 09/26/2021 by Joni Moreno MD at OR [facility] Left: Eye BAUSCH & LOMB 04/20/2026 [id number] / [id number] / [id number] Lens Intraoc 20.0 - [id number] - [id number] Implanted:Qty: 1 on 10/10/2021 by Joni Moreno MD at OR [facility] Right: Eye BAUSCH & LOMB 05/21/2026 [id number] / [id number] / [id number] documented as of this encounter Advance Directives Documents on File Type Date Recorded Patient Network Administrator Expl anation Advanced Directive Advanced Directive Advanced [...] 05/31/2015 12:00 AM ADVANCE DIRECTIVE Care Teams Sheet Metal Erector Relationship Specialty Start Date End Date Elias Duarte DO [address] [facility] [place] [address] PCP - General Family Medicine 07/16/17 documented as of this encounter
--- OUTSIDE RECORDS SUMMARY | 2023-05-28 23:55 | External Medical Summary | Summary of Care ---
Author Name Unknown Organization [place] [address] Care Team Providers Care Zig Zag Spring Machine Operator Name Role Phone Felicia Elias PANDA Primary Care Provider Encounter Details Date Type Department Care Team Description 06/11/2022 Orders Only Outcomes Research Department [address] [place] [address] Jaycee Mckenzie CHRA My[facility] Research Other*[id number] Allergies No known active allergiesdocumented as of this encounter (statuses as of 06/11/2022) Medications Medication Sig Dispensed Refills Start Date [...] as of this encounter (statuses as of 06/11/2022) Active Problems Problem Noted Date BPH with [...] as of this encounter (statuses as of 06/11/2022) Resolved Problems Problem Noted Date Resolved Date [...] as of this encounter (statuses as of 06/11/2022) Immunizations Name Administration Dates Next Due COVID-19 mRNA, LNP-s, No Pre serve, 2-Dose Series ([employer]) 06/08/2021,11/09/2020,10/19/2020 Covid-19, Mrna, Lnp-s, Pf, B ivalent Booster, 30 Mcg, IM, 12 yrs and above ([employer]) 05/17/2022 DTaP - Dipth/Tet/Acell Pertussis 07/14/2009 Pneumococcal [...] Endoscopy Enid John MD [address] [place] [address] 08/03/2022 Surgery Endoscopy Enid John MD [address] [place] [address] COLONOSCOPY FLEXIBLE PROXIMAL DIAGNOSTIC 11/30/2022 Office Visit Neurology Tone Chavez, DO [address] [place] [address] Scheduled Orders Name Type Priority Associated Diagnoses Orde r Schedule MYCODE SUBSEQUENT ADULT Lab Routine MyCode Research Other*[id number] Every 6 Months for 2 Occurrences starting 06/11/2022 until 07/01/2023 Scheduled Procedures Name Priority Associated Diagnoses Date/Ti me COLONOSCOPY FLEXIBLE PROXIMAL DIAGNOSTIC Recall History of colon polyps 08/03/2022 10:45 AM EST Health Maintenance Due Date Last Done Comments Hepatitis B (1 of 3 - 3-dose series) 1950 Depression Screening, Annual for Pts 12 and Over 02/07/2021 02/08/2020 COLONOSCOPY-ANNUAL AGES 18-100 03/08/2021 03/08/2020, 03/08/2020, 12/28/2015, Additional history exists DTaP,Tdap,and Td Vaccines (3 - Td or Tdap) 02/13/2024 02/12/2014, 07/14/2009 Lipid Panel 08/15/2025 08/15/2020, 01/20, 08/18/2018, Additional history exists Pneumococcal Vaccine: 65+ Years Completed 03/06/2016, 08/19/2013 ABDOMINAL AORTIC ANEURYSM (AAA) SCREENING Completed 07/25/2017 Zoster Vaccines Completed 02/08/2020, 07/22, 02/12/2014 COLONOSCOPY-EVERY 3 YRS AGES 18-100 Discontinued 03/08/2020, 03/08/2020, 12/28/2015, Additional history exists COVID-19 Vaccine Completed 05/17/2022, , 11/09/2020, Additional history exists Influenza Vaccine (FLU shot) Completed 05/17/2022, 04/04/2021, 05/05/2020, Additional history exists GARDASIL-HPV IMMUNIZATION SERIES Aged Out No longer eligible based on patient's age to complete this topic MENINGOCOCCAL (MENACTRA/MENVEO) Aged Out No longer eligible based on patient's age to complete this topic documented as of this encounter Medical Devices Implanted Type Area Diving Judge Device Identifier Shelf Expiration Date Model / Serial / Lot Lens Intraoc 20.0 - [id number] - [id number] Implanted:Qty: 1 on 09/26/2021 by Joni Moreno MD at OR [facility] Left: Eye BAUSCH & LOMB 04/20/2026 [id number] / [id number] / [id number] Lens Intraoc 20.0 - [id number] - [id number] Implanted:Qty: 1 on 10/10/2021 by Joni Moreno MD at OR [facility] Right: Eye BAUSCH & LOMB 05/21/2026 [id number] / [id number] / [id number] documented as of this encounter Visit Diagnoses Diagnosis MyCode Research Other*[id number] History of colon polyps Personal history of colonic polyps documented in this encounter Care Teams Zig Zag Spring Machine Operator Relationship Specialty Start Date End Date Elias Duarte DO [address] [place] [address] [place] [address] PCP - General Family Medicine 07/16/17 documented as of this encounter
--- OUTSIDE RECORDS SUMMARY | 2023-05-28 23:55 | External Medical Summary | Summary of Care ---
Author Name Unknown Organization [place] [address] Care Team Providers Care Director Energy Name Role Phone Elias Duarte DO Primary Care Provider Reason for Visit * Reason Comments Medication Refill Encounter Details Date Type Department Care Team Description 08/28/2022 Refill Family Practice [facility] [address] [facility] [place] [address] Elias Duarte DO [address] [facility] [place] [address] BPH with obstruction/lower urinary tract symptoms Allergies [...] BEDTIME 90 Tablet 1 08/28/2022 4 Active Tamsulosin HCl 0.4 MG Oral Capsule (Flomax)Indication s:BPH with obstruction/lower urinary tract symptoms TAKE ONE CAPSULE BY MOUTH AT BEDTIME 90 Capsule 1 02/22/2022 3 Discontinue d(Refill) documented as of this [...] mRNA, LNP-s, No Pre serve, 2-Dose Series ([employer]) 06/08/2021,11/09/2020,10/19/2020 Covid-19, Mrna, Lnp-s, Pf, B ivalent Booster, 30 Mcg, IM, 12 yrs and above ([employer]) 05/17/2022 DTaP - Dipth/Tet/Acell Pertussis 07/14/2009 Pneumococcal [...] encounter Miscellaneous Notes * Telephone Encounter - Jose Casper RPh - 08/29/2022 6:25 AM ESTSigned Prescriptions: Disp Refills Tamsulosin HCl 0.4 MG Oral Capsule (Flomax)90 Cap*1 Sig: TAKE ONE CAPSULE BY MOUTH AT BEDTIMEAuthorizing Provider: Kelsey DUARTE User: JOSE CASPER----- documented in this encounter Plan of Treatment Upcoming Encounters Date Type Specialty Care Team Description 11/30/2022 Office Visit Neurology Tone Chavez, DO [address] [facility] [place] [address] 02/04/2023 Hospital Encounter Endoscopy Enid John MD [address] [place] [address] 02/04/2023 Surgery Endoscopy Enid John MD [address] [place] [address] COLONOSCOPY FLEXIBLE PROXIMAL DIAGNOSTIC Scheduled Procedures Name [...] this encounter Medical Devices Implanted Type Area Blue Leather Setter Device Identifier Shelf Expiration Date Model / Serial / Lot Lens Intraoc 20.0 - [id number] - [id number] Implanted:Qty: 1 on 09/26/2021 by Joni Moreno MD at OR [facility] Left: Eye BAUSCH & LOMB 04/20/2026 [id number] / [id number] / [id number] Lens Intraoc 20.0 - [id number] - [id number] Implanted:Qty: 1 on 10/10/2021 by Joni Moreno MD at OR [facility] Right: Eye BAUSCH & LOMB 05/21/2026 [id number] / [id number] / [id number] Sureclip 16mm 235cm - [id number] Implanted:Qty: 2 on 08/03/2022 by Enid John MD at ENDOSCOPY [facility] Colon MICRO TECH ENDOSCOPY 09/28/2024 [id number] / / documented as of this encounter Visit Diagnoses Diagnosis BPH with obstruction/lower urinary tract symptoms Hypertrophy of prostate with urinary obstruction and other lower urinary tract symptoms (LUTS) History of colon polyps Personal history of colonic polyps documented in this encounter Care Teams Director Energy Relationship Specialty Start Date End Date Elias Duarte DO [address] [facility] [place] [address] PCP - General Family Medicine 07/16/17 documented as of this encounter
--- OUTSIDE RECORDS SUMMARY | 2023-05-28 23:56 | External Medical Summary | Summary of Care ---
Author Name Unknown Organization [place] [address] Care Team Providers Care Metallurgical Lab Technician Name Role Phone Felicia Elias Primary Care Provider [phone] Reason for Visit * Reason Comments Return Neuro Encounter Details Date Type Department Care Team Description 11/21/2021 Office Visit Neurology [facility] [place] [address] [place] [address] Tone Chavez DO [address] [place] [address] Parkinson's disease (HCC)* Allergies No known active allergiesdocumented as of this encounter (statuses as of 11/21/2021) Medications Medication Sig Dispensed Refills Start Date End Date Status B-12 1000 MCG Oral TabletIndications: B12 deficiency Take 1,000 mcg by mouth daily. 90 Tab 1 08/16/2020 Active Aspirin 81 MG Oral Tablet Delayed Release Take 81 mg by mouth daily. 0 Active DULoxetine HCl 30 MG Oral Capsule Delayed Release Particles (Cymbalta)Indicati ons:Lumbar degenerative disc disease,Episode of recurrent major depressive disorder, unspecified depression episode severity (HCC) TAKE 1 CAPSULE BY MOUTH DAILY. DO NOT CUT, CRUSH OR CHEW. 90 Cap 1 05/03/2021 Active Additional Information Patient taking differently: 30 mg Oral HS, Reported on 09/19/2021 Finasteride 5 MG Oral Tablet (Proscar)Indicatio ns:BPH with obstruction/lower urinary tract symptoms TAKE ONE TABLET BY MOUTH DAILY 90 Tab 1 05/03/2021 Active Additional Information Patient taking differently: 5 mg Oral HS, Reported on 09/19/2021 Tamsulosin HCl 0.4 MG Oral Capsule (Flomax)Indication s:BPH with obstruction/lower urinary tract symptoms TAKE ONE CAPSULE BY MOUTH AT BEDTIME 90 Capsule 1 07/27/2021 Active Metoprolol Succinate ER 25 MG Oral Tablet Extended Release 24 Hour (toPROL XL)Indications:Sym ptomatic PVCs Take 1 Tablet by mouth daily. 90 Tablet 1 07/27/2021 Active Additional Information Patient taking differently: 25 mg Oral HS, Reported on 09/19/2021 Pravastatin Sodium 20 MG Oral Tablet (Pravachol)Indicat ions:Mixed dyslipidemia,PVC (premature ventricular contraction) TAKE ONE TABLET BY MOUTH EACH NIGHT AT BEDTIME 90 Tablet 3 08/02/2021 Active Polyethylene Glycol 3350 17 GM Oral Packet (Miralax) Take by mouth 17 g daily as needed . 0 Active Bisacodyl 10 MG Rectal Suppository (Dulcolax) Administer into the rectum 10 mg daily as needed . 0 Active Carbidopa-Levodopa 25-100 MG Oral Tablet (Sinemet)Indicatio ns:Parkinson's disease (HCC) Take by mouth 1 Tablet in the morning AND 1 Tablet at noon AND 1 Tablet in the evening AND 1 Tablet before bedtime. 360 Tablet 1 11/21/2021 Active Carbidopa-Levodopa ER 25-100 MG Oral Tablet Extended Release (Sinemet CR)Indications:Par kinson's disease (HCC) Take by mouth 1 Tablet before bedtime. 90 Tablet 1 11/21/2021 Active Carbidopa-Levodopa 25-100 MG Oral Tablet (Sinemet)Indicatio ns:Parkinson's disease (HCC) Take 1 Tab by mouth 4 times a day. 360 Tab 1 04/21/2021 2 Discontinue d(Refill) Carbidopa-Levodopa ER 25-100 MG Oral Tablet Extended Release (Sinemet CR)Indications:Par kinson's disease (HCC) Take 1 Tab by mouth every night at bedtime. 90 Tab 1 04/21/2021 2 Discontinue d(Refill) documented as of this encounter (statuses as of 11/21/2021) Active Problems Problem Noted Date BPH with [...] as of this encounter (statuses as of 11/21/2021) Resolved Problems Problem Noted Date Resolved Date [...] as of this encounter (statuses as of 11/21/2021) Immunizations Name Administration Dates Next Due COVID-19 mRNA, LNP-s, No Pre serve, 2-Dose Series ([employer]) 06/08/2021,11/09/2020,10/19/2020 DTaP - Dipth/Tet/Acell Pertussis 07/14/2009 Pneumococcal [...] Sign Reading Time Taken Comments Blood Pressure 120/80 11/21/2021 12:50 PM EDT Pulse 75 11/21/2021 12:50 PM EDT Temperature 36.7 C (98 F) 11/21/2021 12: 50 PM EDT Respiratory Rate 18 11/21/2021 12:5 0 PM EDT Oxygen Saturation 98% 11/21/2021 12: 50 PM EDT Inhaled Oxygen Concentration - - Weight 75.2 kg (165 lb 12.8 oz) 022 12:50 PM EDT Height - - Body Mass Index 24.48 10/10/2021 8:25 AM EDT documented in this encounter Progress Notes * Tone Chavez, DO - 11/21/2021 1:05 PM EDT Progress Note - Neurology [address] [address] NAME: Jacques Alicea Date of : 1950 Date of Visit: 11/21/21 Chief Complaint: Chief Complaint Patient presents with Return Neuro Subjective: A 71-year-old male with Parkinson's disease presenting clinic for follow-up. Patient was last seen by myself in April of 2021. Patient presents today alone. Previously had an EMG which showed evidence of sensory neuropathy and later found have a vitamin B12 deficiency. He remains on vitamin B12. He remains very active walking 1 mi per day. He is on Sinemet 1 tablet 4 times daily and1 long-acting tablet at night. He is tolerating his medication well. He is getting a full night's rest. A HOME MEDICATIONS : Current Outpatient Medications Medication Sig Dispense Refill B-12 1000 MCG Oral Tablet Take 1,000 mcg by mouth daily. 90 Tab 1 Aspirin 81 MG Oral Tablet Delayed Release Take 81 mg by mouth daily. Carbidopa-Levodopa 25-100 MG Oral Tablet (Sinemet) Take 1 Tab by mouth 4 times a day. 360 Tab 1 Carbidopa-Levodopa ER 25-100 MG Oral Tablet Extended Release (Sinemet CR) Take 1 Tab by mouth every night at bedtime. 90 Tab 1 DULoxetine HCl 30 MG Oral Capsule Delayed Release Particles (Cymbalta) TAKE 1 CAPSULE BY MOUTH DAILY. DO NOT CUT, CRUSH OR CHEW. (Patient taking differently: Take by mouth 30 mg at bedtime . ) 90 Cap 1 Finasteride 5 MG Oral Tablet (Proscar) TAKE ONE TABLET BY MOUTH DAILY (Patient taking differently: Take by mouth 5 mg at bedtime . ) 90 Tab 1 Tamsulosin HCl 0.4 MG Oral Capsule (Flomax) TAKE ONE CAPSULE BY MOUTH AT BEDTIME 90 Capsule 1 Metoprolol Succinate ER 25 MG Oral Tablet Extended Release 24 Hour (toPROL XL) Take 1 Tablet bymouth daily. (Patient taking differently: Take by mouth 25 mg at bedtime . ) 90 Tablet 1 Pravastatin Sodium 20 MG Oral Tablet (Pravachol) TAKE ONE TABLET BY MOUTH EACH NIGHT AT [id number] Tablet 3 Polyethylene Glycol 3350 17 GM Oral Packet (Miralax) Take by mouth 17 g daily as needed . Bisacodyl 10 MG Rectal Suppository (Dulcolax) Administer into the rectum 10 mg daily as needed . No current facility-administered medications for this visit. Review of patient's allergies indicates: No Known Allergies PHYSICAL EXAMINATION: Vital Signs: BP 120/80 | Pulse 75 | Temp 36.7 C (98 F) | Resp 18 | Wt 75.2 kg (165 lb 12.8 oz) | SpO2 98% | BMI 24.48 kg/m | BSA 1.91 m EXAM: Constitutional: Appears stated age, no distress Head and Face: normocephalic and atraumatic Eyes: normal lids, normal conjunctiva Neck: supple Respiratory: normal effort Cardiovascular: regular rhythm and normal pulses Abdomen: non distended Skin: no rashes, lesions, or ulcers noted Psychiatric: Normal mood NEUROLOGIC EXAMINATION: Appearance: no acute distress Orientation: awake, alert and oriented x 3 Mental Status: alert Attention: normal Knowledge: appropriate Language: no aphasia Speech: Soft speech Cranial Nerves: CN 2 - no visual defect on confrontation and pupils round, equal, reactive to light CN 3, 4, 6 - extra-ocular movements intact and no nystagmus CN 5 - facial sensation intact CN 7 - masked faces, reduced blink rate CN 8 - intact hearing CN 9, 10 - palate symmetric CN 11 - good shoulder shrug CN 12 - tongue midline Gait: Parkinsonian gait, flexed posture, shuffling gait, right pill-rolling tremor in the right hand Coordination: Mild bradykinesia with chtfby-xb-beag testing Sensory: intact to light touch Muscle Tone: normal Muscle exam: 5/5 throughout LABORATORY: Labs reviewed and pertinent findings are indicated below: Review of prior Diagnostic Tests: EMG performed on 07/14/2020: Abnormal study. This electrodiagnostic study shows evidence of followin. 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 2. Chronic left L4-L5 radiculopathy with no active denervation. Review of prior Radiology Studies: IMPRESSION / PLAN: Jacques was seen today for return neuro. Diagnoses and all orders for this visit: Parkinson's disease (HCC) - Carbidopa-Levodopa 25-100 MG Oral Tablet (Sinemet); Take by mouth 1 Tablet in the morning AND 1 Tablet at noon AND 1 Tablet in the evening AND 1 Tablet before bedtime. - Carbidopa-Levodopa ER 25-100 MG Oral Tablet Extended Release (Sinemet CR); Take by mouth 1 Tabletbefore bedtime. Mr. Alicea is a very pleasant 71-year-old male with currently well controlled tremor predominant idiopathic Parkinson's disease on Sinemet presenting to clinic for follow-up. He does have associated cognitive symptoms with his Parkinson's disease. He has tolerated his medications well and remains active. He denies any visual hallucinations. Recommend continue current dose of Sinemet 25-100 immediate release format and 1 tablet extended release at night. I will arrange for follow-up in 1 year sooner if needed. I did provide him with refills today. Tone Chavez DO documented in this encounter Nursing Notes * Adriana Pugh LPN - 11/21/2021 12:49 PM EDT Patient identified by name and date of . documented in this encounter Plan of Treatment Upcoming Encounters Date Type Specialty Care Team Description 02/12/2022 Office Visit Family Medicine Elias Duarte DO [address] [facility] [place] [address] 11/30/2022 Office Visit Neurology Tone Chavez DO [address] [facility] [address] Scheduled Procedures Name Priority Associated Diagnoses Date/Ti me COLONOSCOPY FLEXIBLE PROXIMAL DIAGNOSTIC Recall History of colon polyps Health Maintenance Due Date Last Done Comments Depression Screening, Annual for Pts 12 and Over 02/07/2021 02/08/2020 COLONOSCOPY-ANNUAL AGES 18-100 03/08/2021 03/08/2020, 03/08/2020, 12/28/2015, Additional history exists DTaP,Tdap,and Td Vaccines (3 - Td or Tdap) 02/13/2024 02/12/2014, 07/14/2009 DIABETES SCREEN EVERY 3 YRS-AGE 45 AND ABOVE 04/21/2024 04/21/2021, 04/21/2021, 08/15/2020, Additional history exists LIPID SCREEN EVERY 5 YRS-MEN AGE 35-75 08/15/2025 08/15/2020, 02/08/2020, 08/18/2018, Additional history exists Pneumococcal Vaccine: 65+ Years Completed 03/06/2016, 08/19/2013 ABDOMINAL AORTIC ANEURYSM (AAA) SCREENING Completed 07/25/2017 Zoster Vaccines Completed 02/08/2020, 07/22, 02/12/2014 Influenza Vaccine (FLU shot) Completed , 05/05/2020, 08/04/2019, Additional history exists COVID-19 Vaccine Completed 06/08/2021, , 10/19/2020 GARDASIL-HPV IMMUNIZATION SERIES Aged Out No longer eligible based on patient's age to complete this topic MENINGOCOCCAL (MENACTRA/MENVEO) Aged Out No longer eligible based on patient's age to complete this topic documented as of this encounter Implants Implanted Type Area Drilling Inspector Device Identifier Shelf Expiration Date Model / Serial / Lot Lens Intraoc 20.0 - [id number] - [id number] Implanted:Qty: 1 on 09/26/2021 by Joni Moreno MD at OR [facility] Left: Eye BAUSCH & LOMB 04/20/2026 [id number] / [id number] / [id number] Lens Intraoc 20.0 - [id number] - [id number] Implanted:Qty: 1 on 10/10/2021 by Joni Moreno MD at OR [facility] Right: Eye BAUSCH & LOMB 05/21/2026 [id number] / [id number] / [id number] documented as of this encounter Visit Diagnoses Diagnosis Parkinson's disease (HCC)- Primary Paralysis agitans documented in this encounter Advance Directives Documents on File Type Date Recorded Patient Janitor Custodian Expl anation Advanced Directive Advanced Directive Advanced [...] 05/31/2015 12:00 AM ADVANCE DIRECTIVE Care Teams Metallurgical Lab Technician Relationship Specialty Start Date End Date Elias Duarte DO [address] [place] [address] PCP - General Family Medicine 07/16/17 documented as of this encounter"
--- OUTSIDE RECORDS SUMMARY | 2023-05-28 23:56 | External Medical Summary | Summary of Care ---
Author Name Unknown Organization [place] [address] Care Team Providers Care Communications Project Lead Name Role Phone Elias Duarte DO Primary Care Provider Reason for Visit * Reason Onset Date Comments Appointment 02/12/2022 Encounter Details Date Type Department Care Team Description 02/12/2022 Telephone Family Practice [facility] [address] [facility] [place] [address] Elias Duarte DO [address] [facility] [place] [address] Appointment Allergies No known active allergiesdocumented as of this encounter (statuses as of 02/12/2022) Medications Medication Sig Dispensed Refills Start Date End Date Status B-12 1000 MCG Oral TabletIndications:B 12 deficiency Take 1,000 mcg by mouth daily. 90 Tab 1 08/16/2020 Active Aspirin 81 MG Oral Tablet Delayed Release Take 81 mg by mouth daily. 0 Active Tamsulosin HCl 0.4 MG Oral Capsule (Flomax)Indications :BPH with obstruction/lower urinary tract symptoms TAKE ONE CAPSULE BY MOUTH AT BEDTIME 90 Capsule 1 07/27/2021 Active Metoprolol Succinate ER 25 MG Oral Tablet Extended Release 24 Hour (toPROL XL)Indications:Symp tomatic PVCs Take 1 Tablet by mouth daily. 90 Tablet 1 07/27/2021 Active Additional Information Patient taking differently: 25 mg Oral HS, Reported on 09/19/2021 Pravastatin Sodium 20 MG Oral Tablet (Pravachol)Indicati [...] 0 Active Finasteride 5 MG Oral Tablet (Proscar)Indication s:BPH with obstruction/lower urinary tract symptoms TAKE 1 TABLET BY MOUTH DAILY. 90 Tablet 3 11/21/2021 Active DULoxetine HCl 30 MG Oral Capsule Delayed Release Particles (Cymbalta)Indicatio ns:Lumbar degenerative disc disease,Episode of recurrent major depressive disorder, unspecified depression episode severity (HCC) TAKE 1 CAPSULE BY MOUTH DAILY. DO NOT CUT, CRUSH OR CHEW. 90 Capsule 1 11/21/2021 Active Carbidopa-Levodopa 25-100 MG Oral Tablet (Sinemet)Indication s:Parkinson's disease (HCC) Take by mouth 1 Tablet in the morning AND 1 Tablet at noon AND 1 Tablet in the evening AND 1 Tablet before bedtime. 360 Tablet 1 11/21/2021 Active Carbidopa-Levodopa ER 25-100 MG Oral Tablet Extended Release (Sinemet CR)Indications:Park inson's disease (HCC) Take by mouth 1 Tablet before bedtime. 90 Tablet 1 11/21/2021 Active Meclizine HCl 25 MG Oral Tablet (Antivert)Indicatio ns:Vertigo Take by mouth 1 Tablet as needed in the morning AND 1 Tablet as needed at noon AND 1 Tablet as needed in the evening for Dizziness. 30 Tablet 1 02/12/2022 Active documented as of this encounter (statuses as of 02/12/2022) Active Problems Problem Noted Date BPH with [...] as of this encounter (statuses as of 02/12/2022) Resolved Problems Problem Noted Date Resolved Date [...] as of this encounter (statuses as of 02/12/2022) Immunizations Name Administration Dates Next Due COVID-19 mRNA, LNP-s, No Pre serve, 2-Dose Series ([place]) 06/08/2021,11/09/2020,10/19/2020 DTaP - Dipth/Tet/Acell Pertussis 07/14/2009 Pneumococcal [...] Miscellaneous Notes * Telephone Encounter - CARMEN Pope - 02/12/2022 1:31 PM EDT Pt is not wanting to schedule Colonoscopy at this time. Thanks! documented in this encounter Plan of Treatment Upcoming Encounters Date Type Specialty Care Team Description 11/30/2022 Office Visit Neurology Tone Chavez, DO [address] [place] [address] Scheduled Procedures Name Priority Associated Diagnoses Date/Ti [...] of this encounter Implants Implanted Type Area Shrimp Trawler Captain Device Identifier Shelf Expiration Date Model / Serial / Lot Lens Intraoc 20.0 - [id number] - [id number] Implanted:Qty: 1 on 09/26/2021 by Joni Moreno MD at OR [facility] Left: Eye BAUSCH & LOMB 04/20/2026 [id number] / [id number] / [id number] Lens Intraoc 20.0 - [id number] - [id number] Implanted:Qty: 1 on 10/10/2021 by Joni Moreno MD at OR [facility] Right: Eye BAUSCH & LOMB 05/21/2026 [id number] / [id number] / [id number] documented as of this encounter Advance Directives Documents on File Type Date Recorded Patient Sales Apprentice Expl anation Advanced Directive Advanced Directive Advanced [...] 05/31/2015 12:00 AM ADVANCE DIRECTIVE Care Teams Communications Project Lead Relationship Specialty Start Date End Date Elias Duarte DO [address] [facility] [place] [address] PCP - General Family Medicine 07/16/17 documented as of this encounter
--- OUTSIDE RECORDS SUMMARY | 2023-05-28 23:56 | External Medical Summary | Summary of Care ---
Author Name Unknown Organization [place] [address] Care Team Providers Care Baseball Glove Stuffer Name Role Phone Elias Duarte DO Primary Care Provider [phone] Encounter Details Date Type Department Care Team Description 02/15/2022 External Data Patient Risk Medial Allergies No known active allergiesdocumented as of this encounter (statuses as of 02/22/2022) Medications Medication Sig Dispensed Refills Start Date [...] 24 Hour (toPROL XL)Indications:Symp tomatic PVCs TAKE ONE TABLET BY MOUTH DAILY 90 Tablet 3 02/15/2022 Active documented as of this encounter (statuses as of 02/22/2022) Active Problems Problem Noted Date BPH with [...] as of this encounter (statuses as of 02/22/2022) Resolved Problems Problem Noted Date Resolved Date [...] as of this encounter (statuses as of 02/22/2022) Immunizations Name Administration Dates Next Due COVID-19 mRNA, LNP-s, No Pre serve, 2-Dose Series ([employer]) 06/08/2021,11/09/2020,10/19/2020 DTaP - Dipth/Tet/Acell Pertussis 07/14/2009 Pneumococcal [...] Office Visit Neurology Tone Chavez, DO [address] [facility] [place] [address] Scheduled Procedures Name Priority Associated Diagnoses Date/Ti [...] of this encounter Implants Implanted Type Area Ranch Manager Device Identifier Shelf Expiration Date Model / Serial / Lot Lens Intraoc 20.0 - [id number] - [id number] Implanted:Qty: 1 on 09/26/2021 by Joni Moreno MD at [facility] Left: Eye BAUSCH & LOMB 04/20/2026 [id number] / [id number] / [id number] Lens Intraoc 20.0 - [id number] - [id number] Implanted:Qty: 1 on 10/10/2021 by Joni Moreno MD at OR [facility] Right: Eye BAUSCH & LOMB 05/21/2026 [id number] / [id number] / [id number] documented as of this encounter Advance Directives Documents on File Type Date Recorded Patient Pin Sorter And Bagger Expl anation Advanced Directive Advanced Directive Advanced [...] 05/31/2015 12:00 AM ADVANCE DIRECTIVE Care Teams Baseball Glove Stuffer Relationship Specialty Start Date End Date Elias Duarte DO [address] [facility] [place] [address] PCP - General Family Medicine 07/16/17 documented as of this encounter
--- OUTSIDE RECORDS SUMMARY | 2023-05-28 23:56 | External Medical Summary | Summary of Care ---
Author Name Unknown Organization [place] [address] Care Team Providers Care Yellow Pages Space Salesperson Name Role Phone Felicia Elias Primary Care Provider Reason for Visit * Reason Comments eRx-Medication Refill Encounter Details Date Type Department Care Team Description 02/15/2022 Refill Neurology [facility] [employer] [address] [place] [facility] [address] Tone Chavez DO [address] [place] [facility] [address] Parkinson's disease (HCC) Allergies No known active allergiesdocumented as of this encounter (statuses as of 02/15/2022) Medications Medication Sig Dispensed Refills Start Date [...] as of this encounter (statuses as of 02/15/2022) Active Problems Problem Noted Date BPH with [...] as of this encounter (statuses as of 02/15/2022) Resolved Problems Problem Noted Date Resolved Date [...] as of this encounter (statuses as of 02/15/2022) Immunizations Name Administration Dates Next Due COVID-19 mRNA, LNP-s, No Pre serve, 2-Dose Series ([employer]) 06/08/2021,11/09/2020,10/19/2020 DTaP - Dipth/Tet/Acell Pertussis 07/14/2009 Pneumococcal [...] encounter Miscellaneous Notes * Telephone Encounter - Alma Olmos CPhT - 02/15/2022 11:47 AM EDT Refused Prescriptions: Disp Refills Carbidopa-Levodopa ER 25-100 MG Oral Table*90 Tab*1 Sig: TAKE ONE TABLET BY MOUTH EVERY NIGHT AT BEDTIMERefused By: Derrick OLMOS for Refusal: Too soon Carbidopa-Levodopa 25-100 MG Oral Tablet (*360 Ta*1 Sig: TAKE ONE TABLET BY MOUTH FOUR TIMES A DAYRefused By: Derrick OLMOS for Refusal: Too soon documented in this encounter Plan of Treatment Upcoming Encounters Date Type Specialty Care Team Description 11/30/2022 Office Visit Neurology Tone Chavez, [address] [place] [address] Scheduled Procedures Name Priority Associated Diagnoses Date/Ti [...] of this encounter Implants Implanted Type Area Boatbuilder Wood Device Identifier Shelf Expiration Date Model / Serial / Lot Lens Intraoc 20.0 - [id number] - [id number] Implanted:Qty: 1 on 09/26/2021 by Joni Moreno MD at OR [facility] Left: Eye BAUSCH & LOMB 04/20/2026 [id number] / [id number] / [id number] Lens Intraoc 20.0 - [id number] - [id number] Implanted:Qty: 1 on 10/10/2021 by oJni Moreno MD at OR [facility] Right: Eye BAUSCH & LOMB 05/21/2026 [id number] / [id number] / [id number] documented as of this encounter Visit Diagnoses Diagnosis Parkinson's disease (HCC) Paralysis agitans documented in this encounter Advance Directives Documents on File Type Date Recorded Patient Cement Mixer Driver Expl anation Advanced Directive Advanced Directive Advanced [...] 05/31/2015 12:00 AM ADVANCE DIRECTIVE Care Teams Yellow Pages Space Salesperson Relationship Specialty Start Date End Date Elias Duarte DO [address] [place] [address] PCP - General Family Medicine 07/16/17 documented as of this encounter
--- OUTSIDE RECORDS SUMMARY | 2023-05-28 23:56 | External Medical Summary | Summary of Care ---
Author Name Unknown Organization [facility] [address] Care Team Providers Care Strip Stamp Straightener Name Role Phone Elias Duarte DO Primary Care Provider [phone] Reason for Referral * Ancillary Services (Within 30 days (routine)) - Authorized Specialty Diagnoses / Procedures Referred By Contac t Referred To Contact Gastroenterology Diagnoses Special screening for malignant neoplasms, colon Elias Duarte DO [address] [place] [address] Referral ID Status Reason Start Date Expiration Date Visits Requested Visits Authorized [id number] Authorized Ancillary Services Required 02/12/2022 999 999 Question Answer Referral Priority Within 30 days (routine) Comments ALERT: Do not order for pediatric patients (18 years or younger). Cancel off screen and order PEDS GASTROENTEROLOGY CONSULT (Type: 1 visit only-Evaluate and Treat) The following Pt. Instructions are available: - Gastro Colonoscopy Prep Instructions [[id number]] - Gastro Colonoscopy Prep Instructions (Turkmen Version) [[id number]] Go to the Pt. Instructions section within the Visit Navigator to access. Colonoscopy ASGE Guidelines: Average risk screening (begin at age 50, 10 year intervals) and Postadenoma resection: greater than 10 adenomas (1yr intervals) ADDITIONAL INFORMATION 1. Is the patient on Coumadin? No 2. Is the patient on Pradaxa? No Reason for Visit * Reason Comments Follow Up pt here for a 6m f/u . Pt states that he is sleeping better then he has in years. Pt states that sunlight hurts his eye but did have eye surgery in december. Pt states that he gets lightheaded and has poor balance. Pt states that the Miralax has been working well for him. Encounter Details Date Type Department Care Team Description 02/12/2022 Office Visit Family Practice [facility] [address] [place] [address] Elias Duarte DO [address] [place] [address] Parkinson's disease (HCC)*; Lumbar degenerative disc disease; Special screening for malignant neoplasms, colon; BPH with obstruction/lower urinary tract symptoms; Irritable bowel syndrome with constipation; Vertigo Allergies No known active allergiesdocumented as of this encounter (statuses as of 02/26/2022) Medications Medication Sig Dispensed Refills Start Date [...] 0 Active Finasteride 5 MG Oral Tablet (Proscar)Indicati ons:BPH with obstruction/lower urinary tract symptoms TAKE 1 TABLET BY MOUTH DAILY. 90 Tablet 3 11/21/2021 Active Carbidopa-Levodop a 25-100 MG Oral Tablet (Sinemet)Indicati ons:Parkinson's disease (HCC) Take by mouth 1 Tablet in the morning AND 1 Tablet at noon AND 1 Tablet in the evening AND 1 Tablet before bedtime. 360 Tablet 1 11/21/2021 Active Carbidopa-Levodop a ER 25-100 MG Oral Tablet Extended Release (Sinemet CR)Indications:Pa rkinson's disease (HCC) Take by mouth 1 Tablet before bedtime. 90 Tablet 1 11/21/2021 Active Meclizine HCl 25 MG Oral Tablet (Antivert)Indicat ions:Vertigo Take by mouth 1 Tablet as needed in the morning AND 1 Tablet as needed at noon AND 1 Tablet as needed in the evening for Dizziness. 30 Tablet 1 02/12/2022 Active Tamsulosin HCl 0.4 MG Oral Capsule (Flomax)Indicatio ns:BPH with obstruction/lower urinary tract symptoms TAKE ONE CAPSULE BY MOUTH AT BEDTIME 90 Capsule 1 07/27/2021 2 Discontinued Metoprolol Succinate ER 25 MG Oral Tablet Extended Release 24 Hour (toPROL XL)Indications:Sy mptomatic PVCs Take 1 Tablet by mouth daily. 90 Tablet 1 07/27/2021 2 Discontinued DULoxetine HCl 30 MG Oral Capsule Delayed Release Particles (Cymbalta)Indicat ions:Lumbar degenerative disc disease,Episode of recurrent major depressive disorder, unspecified depression episode severity (HCC) TAKE 1 CAPSULE BY MOUTH DAILY. DO NOT CUT, CRUSH OR CHEW. 90 Capsule 1 11/21/2021 2 Discontinued documented as of this encounter (statuses as of 02/26/2022) Active Problems Problem Noted Date BPH with [...] as of this encounter (statuses as of 02/26/2022) Resolved Problems Problem Noted Date Resolved Date [...] as of this encounter (statuses as of 02/26/2022) Immunizations Name Administration Dates Next Due COVID-19 mRNA, LNP-s, No Pre serve, 2-Dose Series ([place] Runway Thief) 06/08/2021,11/09/2020,10/19/2020 DTaP - Dipth/Tet/Acell Pertussis 07/14/2009 Pneumococcal [...] Sign Reading Time Taken Comments Blood Pressure 132/78 02/12/2022 12:48 PM EDT Pulse 73 02/12/2022 12:48 PM EDT Temperature 36.9 C (98.5 F) 02/12/2022 12:48 PM E DT Respiratory Rate 16 02/12/2022 12:48 PM EDT Oxygen Saturation 98% 02/12/2022 12:48 PM EDT Inhaled Oxygen Concentration - - Weight 74.5 kg (164 lb 3.2 oz) 02/12/2022 12:48 PM EDT Height 175.3 cm (5' 9") 02/12/2022 12:48 PM EDT Body Mass Index 24.25 02/12/2022 12:48 PM EDT documented in this encounter Progress Notes * Elias Duarte, DO - 02/12/2022 1:07 PM EDT Images from the original note were not included. History of Present Illness Jacques Alicea is a 72 year old male that presents for Follow Up (pt here for a 6m f/u. Pt states that he is sleeping better then he has in years. Pt states that sunlight hurts his eye but did have eye surgery in december. Pt states that he gets lightheaded and has poor balance. Pt states that the Miralax has been working well for him.) Patient is a 72-year-old male with history of Parkinson's disease, lumbar degenerative disc disease, BPH, IBS with constipation. Patient complains of poor balance with shuffled gait. Patient complains of intermittent vertigo. Patient denies headache, blurred vision, slurred speech, muscle weakness or numbness.Patient denies fatigue fever chills or sweats. Patient denies nasal congestion sore throat or earache. Patient denies cough or sputum. Patient denies chest pain shortness breath palpitations or edema. Patient complains of constipation improved with MiraLax. Patient denies abdominal pain nausea vomiting diarrhea melena or hematochezia. Patient denies urinary frequency dysuria urgency orhematuria. Patient complains of chronic intermittent low back pain. Patient denies skin rash or lesions. Review systems otherwise negative Physical Exam Vitals: 02/12/22 1248 Temp: 36.9 C (98.5 F) Pulse: 73 Resp: 16 SpO2: 98% BP: 132/78 BMI: 24.24 BP Readings from Last 3 Encounters: 02/12/22 132/78 11/21/21 120/80 10/10/21 135/78 Wt Readings from Last 3 Encounters: 02/12/22 74.5 kg (164 lb 3.2 oz) 11/21/21 75.2 kg (165 lb 12.8 oz) 10/10/21 73.9 kg (163 lb) BMI Readings from Last 3 Encounters: 02/12/22 24.25 kg/m 11/21/21 24.48 kg/m 10/10/21 24.07 kg/m General: alert, healthy and no distress Head: Normocephalic, No masses, lesions, tenderness or abnormalities Eye Exam: PERRLA, extraocular movements intact, conjunctiva are pink and non- injected, sclera clear Ears: External ears normal, Canals clear, TM's Normal Nose: no mucosal erythema, no mucosal edema, no purulent discharge Oropharynx: no exudate, no erythema, lips, buccal mucosa, and tongue normal and mucous membranes are moist Neck: supple, no adenopathy, no bruits, thyroid normal size, non-tender, without nodularity Lymph: no palpable lymphadenopathy Heart: regular rate & rhythm, no murmurs and no gallops Lungs: chest symmetric with normal AP diameter, no chest deformities noted, no chest wall tenderness, lungs clear to auscultation Pulses: carotid=2/4 w/o bruits Abdomen: abdomen soft, non-tender, normal bowel sounds and no masses or organomegaly Back: back symmetric, no curvature, no costovertebral angle tenderness, lumbar paravertebral musclespasm and tenderness with decreased range of motion lumbar flexion L1-L5 Extremities: no edema, no clubbing, no cyanosis Neuro Exam: alert & oriented x 3 with fluent speech, no focal motor/sensory deficits, bradykinesia with shuffled gait, cogwheel rigidity Skin: skin color, texture, turgor are normal, no rashes or significant lesions I have reviewed the following results: None Assessment and Plan Parkinson's disease (HCC) Continue present medication Follow with Neurology Carbidopa levodopa ER 25-100 mg 1 tab once daily Carbidopa levodopa 25-100 1 tab four times daily Lumbar degenerative disc disease Modified home therapeutic exercise Warm compresses four times daily to affected area Avoid strenuous activities, no heavy lifting Special screening for malignant neoplasms, colon - COLONOSCOPY, GI REFERRAL OP BPH with obstruction/lower urinary tract symptoms Continue tamsulosin 0.4 mg 1 tab daily Irritable bowel syndrome with constipation MiraLax 1 cap in 8 oz water once daily [place] high-fiber diet Vertigo - Meclizine HCl 25 MG Oral Tablet (Antivert); Take by mouth 1 Tablet as needed in the morning AND 1Tablet as needed at noon AND 1 Tablet as needed in the evening for Dizziness. Wrap-Up Time: I spent a total of 40-54 minutes (exact time 40 mins) on the date of service in preparation, delivery, and documentation of the care provided to Jacques Alicea excluding any time spent in the performance of separately billed services. documented in this encounter Nursing Notes * Maryjane Haji LPN - 02/12/2022 12:45 PM EDT The patient has been properly identified by confirmation of name and date of . Chief Complaint Patient presents with Follow Up pt here for a 6m f/u. Pt states that he is sleeping better then he has in years. Pt states that sunlight hurts his eye but did have eye surgery in december. Pt states that he gets lightheaded and has poor balance. Pt states that the Miralax has been working well for him. documented in this encounter Plan of Treatment Upcoming Encounters Date Type Specialty Care Team Description 11/30/2022 Office Visit Neurology Tone Chavez DO [address] [facility] [place] [address] Scheduled Procedures Name Priority Associated Diagnoses Date/Ti me COLONOSCOPY FLEXIBLE PROXIMAL DIAGNOSTIC Recall History of colon polyps Scheduled Referrals Name Type Priority Associated Diagnoses Orde r Schedule COLONOSCOPY, GI REFERRAL OP Referral Within 30 days (routine) Special screening for malignant neoplasms, colon Ordered: 02/12/2022 Health Maintenance Due Date Last Done Comments [...] of this encounter Implants Implanted Type Area Demolition Worker Device Identifier Shelf Expiration Date Model / Serial / Lot Lens Intraoc 20.0 - [id number] - [id number] Implanted:Qty: 1 on 09/26/2021 by Joni Moreno MD at OR [facility] Left: Eye BAUSCH [employer] LOMB 04/20/2026 [id number] / [id number] / [id number] Lens Intraoc 20.0 - [id number] - [id number] Implanted:Qty: 1 on 10/10/2021 by Joni Moreno MD at [facility] Right: Eye BAUSCH & LOMB 05/21/2026 [id number] / [id number] / [id number] documented as of this encounter Visit Diagnoses Diagnosis Parkinson's disease (HCC)- Primary Paralysis agitans Lumbar degenerative disc disease Degeneration of lumbar or lumbosacral intervertebral disc Special screening for malignant neoplasms, colon BPH with obstruction/lower urinary tract symptoms Hypertrophy of prostate with urinary obstruction and other lower urinary tract symptoms (LUTS) Irritable bowel syndrome with constipation Irritable bowel syndrome Vertigo Dizziness and giddiness documented in this encounter Advance Directives Documents on File Type Date Recorded Patient Recruitment Officer Expl anation Advanced Directive Advanced Directive Advanced [...] 05/31/2015 12:00 AM ADVANCE DIRECTIVE Care Teams Strip Stamp Straightener Relationship Specialty Start Date End Date Elias Duarte DO [address] [facility] [place] [address] PCP - General Family Medicine 07/16/17 documented as of this encounter
--- OUTSIDE RECORDS SUMMARY | 2023-05-28 23:56 | External Medical Summary | Summary of Care ---
Author Name Unknown Organization [place] [address] Care Team Providers Care Ink Printer Name Role Phone Elias Duarte DO Primary Care Provider [phone] Reason for Visit * Reason Onset Date Comments Health Maintenance 01/03/2022 Encounter Details Date Type Department Care Team Description 01/03/2022 Telephone Family [address] [facility] [address] [facility] [place] [address] [facility] [address] [facility] [address] Health Maintenance Allergies No known active allergiesdocumented as of this encounter (statuses as of 01/03/2022) Medications Medication Sig Dispensed Refills Start Date [...] before bedtime. 90 Tablet 1 11/21/2021 Active documented as of this encounter (statuses as of 01/03/2022) Active Problems Problem Noted Date BPH with [...] as of this encounter (statuses as of 01/03/2022) Resolved Problems Problem Noted Date Resolved Date [...] as of this encounter (statuses as of 01/03/2022) Immunizations Name Administration Dates Next Due COVID-19 mRNA, LNP-s, No Pre serve, 2-Dose Series (Axcient) 06/08/2021,11/09/2020,10/19/2020 DTaP - Dipth/Tet/Acell Pertussis 07/14/2009 Pneumococcal [...] Date Former Smoker Cigarettes 1 12 Quit: 01/01 /1975 Smokeless Tobacco: Never Used Alcohol Use Standard [...] encounter Miscellaneous Notes * Telephone Encounter - Mary Velazquez LPN - 01/03/2022 3:11 PM EDT Care Gaps Comprehensive Care Outreach Last Office/Telemedicine Visit: 08/21/2021 (in office), Visit date not found (telemedicine) Last Office/Telemedine Visit Annual Wellness: due Next Office Visit: 02/12/2022 Hemoglobin AIC Results: Lab Results Component Value Date/Time HEMOGLOBIN A1C - [facility] 5.6 04/21/2021 10:26 AM HEMOGLOBIN A1C - [facility] 5.7 (H) 08/15/2020 02:14 PM HEMOGLOBIN A1C - [facility] 5.4 08/15/2017 08:12 AM Health Maintenance Topic Date Due COLONOSCOPY-ANNUAL AGES 18-100 03/08/2021 COVID-19 Vaccine (4 - Booster for Pfizer series) 10/06/2021 Care Gap Outreach Action Taken: Unable to reach Line does not ring documented in this encounter Plan of Treatment Upcoming Encounters Date Type Specialty Care Team Description 02/12/2022 Office Visit Family Medicine Elias Duarte DO [address] [place] [address] 11/30/2022 Office Visit Neurology Tone Chavez DO [address] [place] [address] Scheduled Procedures Name Priority Associated Diagnoses Date/Ti me COLONOSCOPY FLEXIBLE PROXIMAL DIAGNOSTIC Recall History of colon polyps Health Maintenance Due Date Last Done Comments Depression Screening, Annual for Pts 12 and Over 02/07/2021 02/08/2020 COLONOSCOPY-ANNUAL AGES 18-100 03/08/2021 03/08/2020, 03/08/2020, 12/28/2015, Additional history exists COVID-19 Vaccine (4 - Booster for Pfizer series) 10/06/2021 06/08/2021, 11/09/2020, 10/19/2020 DTaP,Tdap,and Td Vaccines (3 - Td or [...] Completed , 05/05/2020, 08/04/2019, Additional history exists GARDASIL-HPV IMMUNIZATION SERIES Aged Out No longer eligible based on patient's age to complete this topic MENINGOCOCCAL (MENACTRA/MENVEO) Aged Out No longer eligible based on patient's age to complete this topic documented as of this encounter Implants Implanted Type Area Local Owner Operator Truck Driver Device Identifier Shelf Expiration Date Model / Serial / Lot Lens Intraoc 20.0 - [id number] - [id number] Implanted:Qty: 1 on 09/26/2021 by Joni Moreno MD at OR [facility] Left: Eye [employer]CH [employer] LOMB 04/20/2026 [id number] / [id number] / [id number] Lens Intraoc 20.0 - [id number] - [id number] Implanted:Qty: 1 on 10/10/2021 by Joni Moreno MD at OR [facility] Right: Eye [employer] LOMB 05/21/2026 [id number] / [id number] / [id number] documented as of this encounter Advance Directives Documents on File Type Date Recorded Patient Outside Barrel Lathe Operator Expl anation Advanced Directive Advanced Directive [...] 05/31/2015 12:00 AM ADVANCE DIRECTIVE Care Teams Ink Printer Relationship Specialty Start Date End Date Elias Duarte, [address] [facility] [place] [address] PCP - General Family Medicine 07/16/17 documented as of this encounter
--- OUTSIDE RECORDS SUMMARY | 2023-05-28 23:56 | External Medical Summary | Summary of Care ---
Author Name Unknown Organization [place] [address] Care Team Providers Care Tier Lift Truck Operator Name Role Phone Elias Duarte DO Primary Care Provider [phone] Reason for Visit * Reason Comments eRx-Medication Refill Encounter Details Date Type Department Care Team Description 02/22/2022 Refill Family Practice [facility] [address] [facility] [place] [address] Elias Duarte DO [address] [facility] [place] [address] BPH with obstruction/lower urinary tract symptoms; Lumbar degenerative disc disease; Episode of recurrent [...] OR CHEW 90 Capsule 1 02/22/2022 Active Tamsulosin HCl 0.4 MG Oral Capsule (Flomax)Indicatio ns:BPH with obstruction/lower urinary tract symptoms TAKE ONE CAPSULE BY MOUTH AT BEDTIME 90 Capsule 1 07/27/2021 2 Discontinued DULoxetine HCl 30 [...] mRNA, LNP-s, No Pre serve, 2-Dose Series ([place]) 06/08/2021,11/09/2020,10/19/2020 DTaP - Dipth/Tet/Acell Pertussis 07/14/2009 Pneumococcal [...] Packs/Day Years Used Date Former Smoker Cigarettes 12 Quit: 07/22 Smokeless Tobacco: Never Used [...] encounter Miscellaneous Notes * Telephone Encounter - Ladarius Suero, [facility] - 02/22/2022 6:34 PM EDT Signed Prescriptions: Disp Refills Tamsulosin HCl 0.4 MG Oral Capsule (Flomax)90 Cap*1 Sig: TAKE ONE CAPSULE BY MOUTH AT BEDTIMEAuthorizing Provider: Kelsey DUARTE User: LADARIUS SUERO DULoxetine HCl 30 MG Oral Capsule Delayed *90 Cap*1 Sig: TAKE ONE CAPSULE BY MOUTH DAILY DO NOT CRUSH CUT OR CHEWAuthorizing Provider: Kelsey DUARTE User: LADARIUS SUERO documented in this encounter Plan of Treatment Upcoming Encounters Date Type Specialty Care Team Description 11/30/2022 Office Visit Neurology Tone Chavez Ravindra, DO [address] [facility], [place] [address] Scheduled Procedures Name Priority Associated Diagnoses Date/Ti [...] of this encounter Implants Implanted Type Area Workers Compensation Attorney Device Identifier Shelf Expiration Date Model / Serial / Lot Lens Intraoc 20.0 - [id number] - [id number] Implanted:Qty: 1 on 09/26/2021 by Joni Moreno MD at OR [facility] Left: Eye BAUSCH [employer] LOMB 04/20/2026 [id number] / [id number] / [id number] Lens Intraoc 20.0 - [id number] - [id number] Implanted:Qty: 1 on 10/10/2021 by Joni Moreno MD at OR [facility] Right: Eye BAUSCH [employer] LOMB 05/21/2026 [id number] / [id number] / [id number] documented as of this encounter Visit Diagnoses Diagnosis BPH with obstruction/lower urinary tract symptoms Hypertrophy of prostate with urinary obstruction and other lower urinary tract symptoms (LUTS) Lumbar degenerative disc disease Degeneration of lumbar or lumbosacral intervertebral disc Episode of recurrent major depressive disorder, unspecified depression episode severity (HCC) documented in this encounter Advance Directives Documents on File Type Date Recorded Patient Obstetrics Tech Expl anation Advanced Directive Advanced Directive Advanced [...] 05/31/2015 12:00 AM ADVANCE DIRECTIVE Care Teams Tier Lift Truck Operator Relationship Specialty Start Date End Date [facility] Duarte DO [address] [facility] [place] [address] PCP - General Family Medicine 07/16/17 documented as of this encounter
--- OUTSIDE RECORDS SUMMARY | 2023-05-28 23:56 | External Medical Summary | Summary of Care ---
Author Name Unknown Organization [place] [address] Care Team Providers Care County Library Director Name Role Phone Elias Duarte DO Primary Care Provider [phone] Reason for Visit * Reason Comments eRx-Medication Refill Encounter Details Date Type Department Care Team Description 02/15/2022 Refill Family Practice [facility] [address] [facility] [place] [address] Elias Duarte DO [address] [facility] [place] [address] Symptomatic PVCs Allergies No known active allergiesdocumented as of [...] AT BEDTIME 90 Capsule 1 07/27/2021 Active Pravastatin Sodium 20 MG Oral Tablet [...] OR CHEW. 90 Capsule 1 11/21/2021 Active Carbidopa-Levodop a 25-100 MG Oral [...] MOUTH DAILY 90 Tablet 3 02/15/2022 Active Metoprolol Succinate ER 25 MG Oral Tablet Extended Release 24 Hour (toPROL XL)Indications:Sy mptomatic PVCs Take 1 Tablet by mouth daily. 90 Tablet 1 07/27/2021 2 Discontinued documented as of this encounter [...] mRNA, LNP-s, No Pre serve, 2-Dose Series (Sambazon) 06/08/2021,11/09/2020,10/19/2020 DTaP - Dipth/Tet/Acell Pertussis 07/14/2009 Pneumococcal [...] encounter Miscellaneous Notes * Telephone Encounter - Rashaun Tinsley RPh - 02/15/2022 4:25 PM EDT Signed Prescriptions: Disp Refills Metoprolol Succinate ER 25 MG Oral Tablet *90 Tab*3 Sig: TAKE ONE TABLET BY MOUTH DAILYAuthorizing Provider: Kelsey DUARTE User: RASHAUN TINSLEY------ documented in this encounter Plan of Treatment Upcoming Encounters Date Type Specialty Care Team Description 11/30/2022 Office Visit Neurology Tone Chavez, [address] [place] [address] Scheduled Procedures Name Priority Associated Diagnoses Date/Ti [...] of this encounter Implants Implanted Type Area Health Information Management Director Device Identifier Shelf Expiration Date Model / Serial / Lot Lens Intraoc 20.0 - [id number] - [id number] Implanted:Qty: 1 on 09/26/2021 by Joni Moreno MD at OR [facility] Left: Eye BAUSCH [employer] LOMB 04/20/2026 [id number] / [id number] / [id number] Lens Intraoc 20.0 - [id number] - [id number] Implanted:Qty: 1 on 10/10/2021 by Joni Moreno MD at OR [facility] Right: Eye BAUSCH & LOMB 05/21/2026 [id number] / [id number] / [id number] documented as of this encounter Visit Diagnoses Diagnosis Symptomatic PVCs Other premature beats documented in this encounter Advance Directives Documents on File Type Date Recorded Patient Neurology Director Expl anation Advanced Directive Advanced Directive Advanced [...] 05/31/2015 12:00 AM ADVANCE DIRECTIVE Care Teams County Library Director Relationship Specialty Start Date End Date Elias Duarte, [address] [facility] [place] [address] PCP - General Family Medicine 07/16/17 documented as of this encounter
--- OUTSIDE RECORDS SUMMARY | 2023-05-28 23:57 | External Medical Summary | Summary of Care ---
Author Name Unknown Organization [place] [address] Care Team Providers Care Pay Per Click Strategist Name Role Phone Elias Cleary DO Primary Care Provider Reason for Referral * Ancillary Services (Within 30 days (routine)) - Authorized Specialty Diagnoses / Procedures Referred By Contac t Referred To Contact Gastroenterology Diagnoses Special screening for malignant neoplasms, colon Elias Cleary DO [address] [facility] [place] [address] Referral ID Status Reason Start Date Expiration Date Visits Requested Visits Authorized [id number] Authorized Ancillary Services Required 08/21/2021 1 1 Question Answer Referral Priority Within 30 days (routine) Comments ALERT: Do not order for pediatric patients (18 years or younger). Cancel off screen and order PEDS GASTROENTEROLOGY CONSULT (Type: 1 visit only-Evaluate and Treat) The following Pt. Instructions are available: - Gastro Colonoscopy Prep Instructions [[id number]] - Gastro Colonoscopy Prep Instructions (Icelandic Version) [[id number]] Go to the Pt. Instructions section within the Visit Navigator to access. Colonoscopy ASGE Guidelines: Average risk screening (begin at age 50, 10 year intervals) and Postadenoma resection: greater than 10 adenomas (1yr intervals) ADDITIONAL INFORMATION 1. Is the patient on Coumadin? No 2. Is the patient on Pradaxa? No Reason for Visit * Reason Comments Re-Check 6 month return. List to discuss. Encounter Details Date Type Department Care Team Description 08/21/2021 Office Visit Family Practice [facility] [address] [place] [address] FeliciaElias, DO [address] [place] [address] Preop examination*; Age-related cataract of both eyes, unspecified age-related cataract type; Parkinson's disease (HCC); PVC (premature ventricular contraction); Sarcoidosis of lung (HCC); Episode of recurrent major depressive disorder, unspecified depression episode severity (HCC); BPH with obstruction/lower urinary tract symptoms; Special screening for malignant neoplasms, colon Allergies No known active allergiesdocumented as of this encounter (statuses as of 09/18/2021) Medications Medication Sig Dispensed Refills Start Date End Date Status B-12 1000 MCG Oral TabletIndications: B12 deficiency Take 1,000 mcg by mouth daily. 90 Tab 1 08/16/2020 Active Aspirin 81 MG Oral Tablet Delayed Release Take 81 mg by mouth daily. 0 Active Carbidopa-Levodopa 25-100 MG Oral Tablet (Sinemet)Indicatio ns:Parkinson's disease (HCC) Take 1 Tab by mouth 4 times a day. 360 Tab 1 04/21/2021 Active Carbidopa-Levodopa ER 25-100 MG Oral Tablet Extended Release (Sinemet CR)Indications:Par kinson's disease (HCC) Take 1 Tab by mouth every night at bedtime. 90 Tab 1 04/21/2021 Active DULoxetine HCl 30 MG Oral Capsule Delayed Release Particles (Cymbalta)Indicati ons:Lumbar degenerative disc disease,Episode of recurrent major depressive disorder, unspecified depression episode severity (HCC) TAKE 1 CAPSULE BY MOUTH DAILY. DO NOT CUT, CRUSH OR CHEW. 90 Cap 1 05/03/2021 Active Finasteride 5 MG Oral Tablet (Proscar)Indicatio ns:BPH with obstruction/lower urinary tract symptoms TAKE ONE TABLET BY MOUTH DAILY 90 Tab 1 05/03/2021 Active Tamsulosin HCl 0.4 MG Oral Capsule (Flomax)Indication s:BPH with obstruction/lower urinary tract symptoms TAKE ONE CAPSULE BY MOUTH AT BEDTIME 90 Capsule 1 07/27/2021 Active Metoprolol Succinate ER 25 MG Oral Tablet Extended Release 24 Hour (toPROL XL)Indications:Sym ptomatic PVCs Take 1 Tablet by mouth daily. 90 Tablet 1 07/27/2021 Active Pravastatin Sodium 20 MG Oral Tablet (Pravachol)Indicat ions:Mixed dyslipidemia,PVC (premature ventricular contraction) TAKE ONE TABLET BY MOUTH EACH NIGHT AT BEDTIME 90 Tablet 3 08/02/2021 Active Linzess 290 MCG Oral Capsule (linaCLOtide)Indic ations:Irritable bowel syndrome with constipation TAKE 1 CAPSULE BY MOUTH DAILY BEFORE BREAKFAST. 30 Cap 5 07/19/2020 08/21/2021 Discontinued (Medication List Clean Up) documented as of this encounter (statuses as of 09/18/2021) Active Problems Problem Noted Date BPH with [...] as of this encounter (statuses as of 09/18/2021) Resolved Problems Problem Noted Date Resolved Date [...] as of this encounter (statuses as of 09/18/2021) Immunizations Name Administration Dates Next Due COVID-19 mRNA, LNP-s, No Pre serve, 2-Dose Series (Pfizer) 06/08/2021,11/09/2020,10/19/2020 DTaP - Dipth/Tet/Acell Pertussis 07/14/2009 Pneumococcal [...] Sign Reading Time Taken Comments Blood Pressure 124/74 08/21/2021 2:35 PM EST Pulse 64 08/21/2021 2:35 PM EST Temperature - - Respiratory Rate - - Oxygen Saturation - - Inhaled Oxygen Concentration - - Weight 73.9 kg (163 lb) 08/21/2021 2:35 PM EST Height - - Body Mass Index 24.07 08/18/2020 2:13 PM EST documented in this encounter Progress Notes * Elias Cleary DO - 08/21/2021 3:14 PM EST Preoperative Risk Assessment Note Jacques Alicea [id number] 08/21/2021 Referred by: Pre-operative evaluation for: Cataract surgery Date of procedure: Brief History of Present Illness: Patient is a 71-year-old male with complaint of bilateral eye cataracts with progressive blurred vision and night glare.. Patient has history of Parkinson's disease,PVCs, sarcoidosis of lung, depression and BPH.. Patient following with neurologist for Parkinson's disease stable on current medication therapy. Review of systems otherwise negative. Current active medical problems and status: Patient Active Problem List Diagnosis Code Mixed [...] (HCC) G20 Lumbar degenerative disc disease M51.36 Current active allergy list: Review of patient's allergies indicates: No Known Allergies Major Risk Factors for Cardiac Events: History of NH, cardiac revascularization, cardiac bypass: No History of cerebrovascular accident or TIA: No History of systolic heart failure: No History of insulin-dependent diabetes: No History of chronic kidney disease (creatinine greater than 2): No Anesthesia History: Type of Anesthesia:General Endotracheal and Caudal block Anesthesia reaction:No History of surgical complications: no Personal history of venous thromboembolic disease: no Functional Assessment: They are able to walk up a flight of stairs, walk two blocks at a moderate pace, do heavy house work like vacuuming and grocery shop. The patient's functional status is good (greater than 4 METS). Can take care of self, such as eat, dress or use the toilet=1MET Can walk to block or go up a flight of steps=4 METs Can do heTE2 house work=4-10 METs Can participate in strenuous sports=>10 METs} Family History: CAD:No Stroke:No DM:No Family history is non-contributory. Past Medical History: Diagnosis Date Benign neoplasm [...] performed by Dale [facility]lock [facility] COLONOSCOPY, DIAGNOSTIC (RECTUM) 12/28/2015 adenomatous polyp, diverticulosis, repeat 3 yrs/COLONOSCOPY FLEXIBLE PROXIMAL DIAGNOSTIC performed by Enid John MD at [facility] COLONOSCOPY, DIAGNOSTIC (RECTUM) 03/08/2020 adenomatous polyps, diverticulosis, repeat 1 yr / COLONOSCOPY FLEXIBLE PROXIMAL DIAGNOSTIC performed by Enid John MD at [facility] COLONOSCOPY/REMOVE LESION 04/27/2010 2 polyps tubulovillous adenomas--repeat in 6 months INFORMATION right foot surgery for plantar fascitis REMOVE TONSILS & ADENOIDS, UNDER 12 Current Outpatient Medications Medication Sig Dispense Refill [...] CUT, CRUSH OR CHEW. 90 Cap 1 Finasteride 5 MG Oral Tablet (Proscar) TAKE ONE TABLET BY MOUTH DAILY 90 Tab 1 Tamsulosin HCl 0.4 MG Oral Capsule (Flomax) TAKE ONE CAPSULE BY MOUTH AT BEDTIME 90 Capsule 1 Metoprolol Succinate ER 25 MG Oral Tablet Extended Release 24 Hour (toPROL XL) Take 1 Tablet bymouth daily. 90 Tablet 1 Pravastatin Sodium 20 MG Oral Tablet (Pravachol) TAKE ONE TABLET BY MOUTH EACH NIGHT AT [id number] Tablet 3 No current facility-administered medications for this visit. Screening for Obstructive Sleep Apnea (STOP-Bang): Do you Snore loudly? No Do you often feel Tired, Fatigued, or Sleep? No Has anyone Observed you Stop Breathing or Choking/Gasping during sleep? No Do you have or are you being treated for High Blood Pressure? No BMI over 35? No Age older than 50? Yes Neck size large? (For males - 17 inches or larger, For females - 16 inches or larger) No Male? Yes Score: 2 0-2:low risk CARMEN, 3-4: intermediate risk of CARMEN, 5-8: high risk CARMEN Social History: Social History Socioeconomic History Marital status: Spouse name: Not on file Number of children: Not on file Years of education: Not on file Highest education level: Not on file Occupational History Comment: retired Tobacco Use Smoking status: Former Smoker Packs/day: 1.00 Years: 12.00 Pack years: 12.00 Types: Cigarettes Quit date: 07/22/1974 Years since quittin.1 Smokeless tobacco: Never Used Vaping Use Vaping Use: Never used Substance [...] on file Housing Stability: Not on file Review of Systems: Constitutional ROS: No change in weight, No weakness, No fatigue and No fevers, sweats, or chills Eye ROS: Bilateral eye contacts as in HPI above, No eye pain, redness, discharge, No diplopia and No h/o glaucoma Ear ROS: No ear pain, No drainage, No tinnitus or vertigo and No recent change in hearing Nose ROS: No history of frequent colds or sinusitis, No nasal stuffiness, No history of Hay Fever and No significant epistaxis Mouth/Throat ROS: No bleeding gums, No thrush or No sore throat Neck ROS: No lumps or masses, No swollen glands, No recent swelling in thyroid area, No significantpain in neck and No h/o goiter or thyroid disease Pulmonary ROS: No cough, sputum, or hemoptysis, No wheezing, No rales, No shortness of breath and No recent change in breathing Cardiovascular ROS: No chest pain, No shortness of breath, No dyspnea on exertion, No orthopnea, Noparoxysmal nocturnal dyspnea, No edema, No palpitations and No syncope Gastrointestinal ROS: No abdominal pain, No change in bowel habits, No significant heartburn, No significant change in appetite, No nausea, vomiting, diarrhea, or constipation, No hematemesis, No blood in stools or black tarry stools, No abdominal bloating or early satiety and No dysphagia Genito-Urinary Male ROS: No STD, No dysuria, No frequency, No incontinence and No urgency Musculoskeletal/Extremities ROS: No pain, redness or swelling on the joints Hematologic/Lymphatic ROS: No coagulation disorder, No anemia, No abnormal bleeding, No chills, No bruising, No HIV risk factors, No night sweats, No swollen nodes, No weight loss and No history of transfusion Skin/Integumentary ROS: No edema, No rash and No itching Neurologic ROS: Normal balance, No headaches, No seizures and No weakness Physical exam: BP 124/74 | Pulse 64 | Wt 73.9 kg (163 lb) | BMI 24.07 kg/m | BSA 1.9 m General: alert, healthy and no distress Head: Normocephalic, No masses, lesions, tenderness or abnormalities Eye Exam: PERRLA, extraocular movements intact, conjunctiva are pink and non- injected, sclera clear, bilateral eye cataract Ears: External ears normal, Canals clear, TM's [...] angle tenderness, lumbar paravertebral musclespasm and tenderness decreased range of motion lumbar flexion L1-L5 Extremities: no edema, no clubbing, no cyanosis Neuro Exam: alert & oriented x 3 with fluent speech, no focal motor/sensory deficits, reflexes normal and symmetric, cogwheel rigidity, shuffled gait Skin: skin color, texture, turgor are normal, no rashes or significant lesions Preop examination (Primary) Patient medically stable for planned procedure Age-related cataract of both eyes, unspecified age-related cataract type Follow with ophthalmology Parkinson's disease (HCC) Stable Continue present medical therapy Follow with Neurology PVC (premature ventricular contraction) Continue present medication Sarcoidosis of lung (HCC) Stable Episode of recurrent major depressive disorder, unspecified depression episode severity (HCC) Continue present medication BPH with obstruction/lower urinary tract symptoms Continue present medication Special screening for malignant neoplasms, colon - COLONOSCOPY, GI REFERRAL OP Spoke with patient 09/18/2021. No change in medical status from office visit . Patient medically stable for planned procedure Revised Cardiac Risk Index (RCRI): Six independent predictors of major cardiac complications are: 1. High-risk type of surgery (examples include vascular and any open intraperitoneal or intrathoracic procedures). No 2. History of ischemic heart disease (history of myocardial infarction or positive exercise test, current compliant of chest pain considered to be secondary to myocardia ischemia, use of nitrate therapy, or ECG with pathological Q waves; do not count prior coronary revascularization procedure unless one of the other criteria for ischemic heart disease is present). No 3. History of heart failure. No 4. History of cerebrovascular disease. No 5. Diabetes messitus requiring treatment with insulin. No 6. Preoperative serum creatinine >2.0 mg/dL (177 micromol/L). No Pt has revised cardiac index score of No Risk Factors- 0.4% (95% CI: 0.1-0.8) for the surgery scheduled. Patient is low for the listed procedure. Elias Cleary DO 08/21/2021 3:14 PM documented in this encounter Plan of Treatment Upcoming Encounters Date Type Specialty Care Team Description 09/26/2021 Hospital Encounter Surgery Joni Moreno MD [address] [place] [address] 09/26/2021 Surgery Surgery Joni Moreno MD [address] [place] [address] LEFT EXTRACAPSULAR CATARACT REMOVAL WITH INTRAOCULAR LENS 10/10/2021 Hospital Encounter Surgery Joni Moreno MD [address] [place] [address] 10/10/2021 Surgery Surgery Joni Moreno MD [address] [place] [address] Right EXTRACAPSULAR CATARACT REMOVAL WITH INTRAOCULAR LENS 11/21/2021 Office Visit Neurology Tone Chavez DO [address] [place] [address] 02/12/2022 Office Visit Family Medicine Elias Cleary DO [address] [facility] [place] [address] Scheduled Procedures Name Priority Associated Diagnoses Date/Ti me EXTRACAPSULAR CATARACT REMOVAL WITH INTRAOCULAR LENS Combined forms of age-related cataract of left eye 09/26/2021 1:21 PM EST EXTRACAPSULAR CATARACT REMOVAL WITH INTRAOCULAR LENS Combined forms of age-related cataract of right eye 10/10/2021 9:17 AM EDT COLONOSCOPY FLEXIBLE PROXIMAL DIAGNOSTIC Recall History of colon polyps Scheduled Referrals Name Type Priority Associated Diagnoses Orde r Schedule COLONOSCOPY, GI REFERRAL OP Referral Within 30 days (routine) Special screening for malignant neoplasms, colon Ordered: 08/21/2021 Health Maintenance Due Date Last Done Comments [...] topic documented as of this encounter Implants Not on filedocumented as of this encounter Visit Diagnoses Diagnosis Preop examination- Primary Preoperative examination, unspecified Age-related cataract of both eyes, unspecified age-related cataract type Parkinson's disease (HCC) Paralysis agitans PVC (premature ventricular contraction) Other premature beats Sarcoidosis of lung (HCC) Sarcoidosis Episode of recurrent major depressive disorder, unspecified depression episode severity (HCC) BPH with obstruction/lower urinary tract symptoms Hypertrophy of prostate with urinary obstruction and other lower urinary tract symptoms (LUTS) Special screening for malignant neoplasms, colon Combined forms of age-related cataract of left eye Other and combined forms of senile cataract Combined forms of age-related cataract of right eye Other and combined forms of senile cataract documented in this encounter Advance Directives Documents on File Type Date Recorded 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
--- OUTSIDE RECORDS SUMMARY | 2023-05-28 23:57 | External Medical Summary | Summary of Care ---
Author Name Unknown Organization [facility] Address [facility] [place] [address] Care Team Providers Care Calender Wind Up Tender Name Role Phone Elias Duarte DO Primary Care Provider [phone] Encounter Details Date Type Department Care Team Description 06/08/2021 Immunization Pharmacy, [facility] [address] [place] [address] [facility] [place] [address] Vaccine Pharmacy [facility] [address] [place] [address] Encounter for immunization* Allergies No known active allergiesdocumented as of this encounter (statuses as of 06/08/2021) Medications Medication Sig Dispensed Refills Start Date End Date Status metoprolol succinate XL (TOPROL XL) 25 MG [id number]:Sympt omatic PVCs Take 1 Tab by mouth daily. 90 Tab 3 03/30/2020 Active Pravastatin Sodium 20 MG Oral Tablet (PRAVACHOL)Indication s:Mixed dyslipidemia,PVC (premature ventricular contraction) TAKE 1 TALBET EACH NIGHT AT BEDTIME 90 Tab 3 06/06/2020 Active Linzess 290 MCG Oral Capsule (linaCLOtide)Indicati ons:Irritable bowel syndrome with constipation TAKE 1 CAPSULE BY MOUTH DAILY BEFORE BREAKFAST. 30 Cap 5 07/19/2020 Active Additional Information Patient not taking. Reported on 04/04/2021 B-12 1000 MCG Oral TabletIndications:B12 deficiency Take 1,000 mcg by mouth daily. 90 Tab 1 08/16/2020 Active Tamsulosin HCl 0.4 MG Oral Capsule (Flomax)Indications:B PH with obstruction/lower urinary tract symptoms TAKE ONE CAPSULE BY MOUTH AT BEDTIME 90 Cap 1 12/05/2020 Active Aspirin 81 MG Oral Tablet Delayed Release Take 81 mg by mouth daily. 0 Active Carbidopa-Levodopa 25-100 MG Oral Tablet (Sinemet)Indications: Parkinson's disease (HCC) Take 1 Tab by mouth 4 times a day. 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 90 Tab 1 04/21/2021 Active DULoxetine HCl 30 MG Oral Capsule Delayed Release Particles (Cymbalta)Indications :Lumbar degenerative disc disease,Episode of recurrent major depressive disorder, unspecified depression episode severity (HCC) TAKE 1 CAPSULE BY MOUTH DAILY. DO NOT CUT, CRUSH OR CHEW. 90 Cap 1 05/03/2021 Active Finasteride 5 MG Oral Tablet (Proscar)Indications: BPH with obstruction/lower urinary tract symptoms TAKE ONE TABLET BY MOUTH DAILY 90 Tab 1 05/03/2021 Active documented as of this encounter (statuses as of 06/08/2021) Active Problems Problem Noted Date Parkinson's disease 01/14/2019 Lumbar degenerative disc disease [...] as of this encounter (statuses as of 06/08/2021) Resolved Problems Problem Noted Date Resolved Date [...] as of this encounter (statuses as of 06/08/2021) Immunizations Name Administration Dates Next Due COVID-19 mRNA, LNP-s, No Pre serve, 2-Dose Series (R&V) 06/08/2021,11/09/2020,10/19/2020 DTaP - Dipth/Tet/Acell Pertussis 07/14/2009 Pneumococcal [...] drink = 0.6 oz pur e alcohol) Sex Assigned at Date Recorded Male 05/16/2020 9:28 AM E DT Job Start Date Occupation Industry Not on file Not on file Not on file documented as of this encounter Plan of Treatment Upcoming Encounters Date Type Specialty Care Team Description 08/21/2021 Office Visit Family Medicine Elias Duarte, DO [address] [place] [address] 11/21/2021 Office Visit Neurology Tone Chavez, DO [address] [place], [place] [address] Scheduled Procedures Name Priority Associated Diagnoses Date/Ti me COLONOSCOPY FLEXIBLE PROXIMAL DIAGNOSTIC Recall History of colon polyps Health Maintenance Due Date Last Done Comments *DEPRESSION SCREENING,ANNUAL FOR PTS 12 AND OVER 10/30/2019 COLONOSCOPY-ANNUAL AGES 18-100 03/08/2021 03/08/2020, 03/08/2020, 12/28/2015, [...] exists COVID-19 Vaccine Completed 06/08/2021, , 10/19/2020 MENINGOCOCCAL (MENACTRA/MENVEO) Aged Out No longer eligible based on patient's age to complete this topic documented as of this encounter Implants Not on filedocumented as of this encounter Visit Diagnoses Diagnosis Encounter for immunization- Primary Need for other specified prophylactic vaccination against single bacterial disease documented in this encounter Advance Directives Documents on File Type Date Recorded 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
--- OUTSIDE RECORDS SUMMARY | 2023-05-28 23:57 | External Medical Summary | Summary of Care ---
Author Name Unknown Organization [place] [address] Care Team Providers Care Senior Premium Auditor Name Role Phone Elias Duarte DO Primary Care Provider Reason for Visit * Reason Onset Date Comments Appointment 08/21/2021 Encounter Details Date Type Department Care Team Description 08/21/2021 Telephone Family Practice [facility] [address] [facility] [place] [address] Elias Duarte DO [address] [facility] [place] [address] Appointment Allergies No known active allergiesdocumented as of this encounter (statuses as of 08/21/2021) Medications Medication Sig Dispensed Refills Start Date End Date Status B-12 1000 MCG Oral TabletIndications:B12 deficiency Take [...] 25-100 MG Oral Tablet Extended Release (Sinemet CR)Indications: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 90 Tablet 1 07/27/2021 Active Pravastatin Sodium 20 MG Oral Tablet (Pravachol)Indication s:Mixed dyslipidemia,PVC (premature ventricular contraction) TAKE ONE TABLET BY MOUTH EACH NIGHT AT BEDTIME 90 Tablet 3 08/02/2021 Active documented as of this encounter (statuses as of 08/21/2021) Active Problems Problem Noted Date BPH with [...] as of this encounter (statuses as of 08/21/2021) Resolved Problems Problem Noted Date Resolved Date [...] as of this encounter (statuses as of 08/21/2021) Immunizations Name Administration Dates Next Due COVID-19 [...] * Telephone Encounter - CARMEN Pope - 08/21/2021 4:28 PM EST Pt needs scheduled for colonoscopy. Thanks! documented in this encounter Plan of Treatment Upcoming Encounters Date Type Specialty Care Team Description 09/26/2021 Hospital Encounter Surgery Joni Moreno MD [address] [place] [address] 09/26/2021 Surgery Surgery Joni Moreno MD [address] [place] [address] LEFT EXTRACAPSULAR CATARACT REMOVAL WITH INTRAOCULAR LENS 10/10/2021 Hospital Encounter Surgery Joni Moreno MD [address] [place] [address] 10/10/2021 Surgery Surgery Joni Moreno MD [address] [place] [address] Right EXTRACAPSULAR CATARACT REMOVAL WITH INTRAOCULAR LENS 11/21/2021 Office Visit Neurology Tone Chavez, DO [address] [facility] [place] [address] Scheduled Procedures Name Priority Associated Diagnoses Date/Ti me EXTRACAPSULAR CATARACT REMOVAL WITH INTRAOCULAR LENS Combined forms of age-related cataract of left eye 09/26/2021 3:39 PM EST EXTRACAPSULAR CATARACT REMOVAL WITH INTRAOCULAR LENS Combined forms of age-related cataract of right eye 10/10/2021 9:54 AM EDT COLONOSCOPY FLEXIBLE PROXIMAL DIAGNOSTIC Recall [...] Not on filedocumented as of this encounter Advance Directives Documents on File Type Date Recorded 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
--- OUTSIDE RECORDS SUMMARY | 2023-05-28 23:57 | External Medical Summary | Summary of Care ---
Author Name Unknown Organization [place] [address] Care Team Providers Care Tank Car Repairer Name Role Phone FeliciaElias Primary Care Provider [phone] Encounter Details Date Type Department Care Team Description 05/02/2021 Orders Only Outcomes Research Department [address] [place] [address] Colton Stallworth CHRA MyCode Research Other*[id number] Allergies No Known Active Allergiesdocumented as of this encounter (statuses as of 05/02/2021) Medications Medication Sig Dispensed Refills Start Date End Date Status metoprolol succinate XL (TOPROL XL) 25 MG [id number]:Sympt omatic PVCs Take 1 Tab by mouth [...] Information Patient not taking. Reported on 04/04/2021 Finasteride 5 MG Oral Tablet (Proscar)Indications: BPH with obstruction/lower urinary tract symptoms Take 1 Tab by mouth daily. 30 Tab 5 08/15/2020 Active B-12 1000 MCG Oral TabletIndications:B12 deficiency Take 1,000 mcg by mouth daily. 90 Tab 1 08/16/2020 Active DULoxetine HCl 30 MG Oral Capsule Delayed Release Particles (Cymbalta)Indications :Lumbar degenerative disc disease,Episode of recurrent major depressive disorder, unspecified depression episode severity (HCC) TAKE 1 CAPSULE BY MOUTH DAILY. DO NOT CUT, CRUSH OR CHEW. 90 Cap 2 09/29/2020 Active Tamsulosin HCl 0.4 MG Oral Capsule [...] at bedtime. 90 Tab 1 04/21/2021 Active documented as of this encounter (statuses as of 05/02/2021) Active Problems Problem Noted Date Prediabetes 08/29/2020 Overview: Per Prediabetes protocol Parkinson's disease 01/14/2019 Lumbar degenerative disc disease [...] as of this encounter (statuses as of 05/02/2021) Resolved Problems Problem Noted Date Resolved Date Impaired fasting glucose 03/12/2016 018 Impacted cerumen 02/12/2014 10/05/2014 Screening for prostate cancer 07/24/2012 Palpitations 09/20/2011 08/19/2013 Spasm of muscle 05/15/2011 08/19/2013 Plantar fibromatosis 04/23/2011 08/19/2013 Urinary frequency 03/28/2010 08/19/2013 Impaired fasting glucose 014 Stress reaction, emotional 08/19 Stress reaction, emotional 03/28 Overview: hx of depression/ anxiety prior on meds documented as of this encounter (statuses as of 05/02/2021) Immunizations Name Administration Dates Next Due COVID-19 mRNA, LNP-s, No Pre serve, 2-Dose Series (Pfizer) 11/09/2020,10/19/2020 DTaP - Dipth/Tet/Acell Pertussis 07/14/2009 Pneumococcal Conjugate [...] 07/22 Smokeless Tobacco: Never Used Alcohol Use Drinks/Week oz/Week Comments No Food Insecurity Answer Date Recorded Within the past 12 months, y ou worried that your food would run out before you got money to buy more. Never true Within the past 12 months, t he food you bought just didn't last and you didn't have money to get more. Never true Sex Assigned at Date Recorded Male 05/16/2020 9:28 AM E DT Job Start Date Occupation Industry Not on file Not on file Not on file documented as of this encounter Plan of Treatment Upcoming Encounters Date Type Specialty Care Team Description 08/21/2021 Office Visit Family Medicine Elias Duarte, DO [address] [address] [phone] 11/21/2021 Office Visit Neurology Tone Chavez DO [address] [place] [address] [phone] Scheduled Orders Name Type Priority Associated Diagnoses Orde r Schedule MYCODE SUBSEQUENT ADULT Lab Routine MyCode Research Other*[id number] Every 6 Months for 2 Occurrences starting 05/02/2021 until 05/22/2022 Health Maintenance Due Date Last Done Comments *DEPRESSION SCREENING,ANNUAL FOR PTS 12 AND OVER 10/30/2019 COLONOSCOPY-ANNUAL AGES 18-100 03/08/2021 03/08/2020, 03/08/2020, 12/28/2015, Additional history exists Prediabetes-Yearly Hemoglobin A1c 04/21/2022 04/21/2021, 04/21/2021, 08/15/2020, Additional history exists DTaP,Tdap,and Td Vaccines (3 - Td) 02/13/2024 02/12/2014, 07/14/2009 DIABETES SCREEN EVERY 3 YRS-AGE 45 AND ABOVE 04/21/2024 04/21/2021, 04/21/2021, 08/15/2020, Additional history exists LIPID SCREEN EVERY 5 YRS-MEN AGE 35-75 08/15/2025 08/15/2020, 02/08/2020, 08/18/2018, Additional history exists Pneumococcal Vaccine: 65+ Years Completed 03/06/2016, 08/19/2013 ABDOMINAL AORTIC ANEURYSM (AAA) SCREENING Completed 07/25/2017 Zoster Vaccines Completed 02/08/2020, 07/22, 02/12/2014 COVID-19 Vaccine Completed 11/09/2020, 10/19/2020 Influenza Vaccine (FLU shot) Completed , 05/05/2020, 08/04/2019, Additional history exists MENINGOCOCCAL (MENACTRA/MENVEO) Aged Out No longer eligible based on patient's age to complete this topic documented as of this encounter Implants Not on filedocumented as of this encounter Visit Diagnoses Diagnosis MyCode Research Other*[id number] documented in this encounter Advance Directives Documents on File Type Date Recorded Patient Admin Asst Expl anation Advance Directives and Living Will 05/31/2015 12:00 AM ADVANCE DIRECTIVE Advanced Directive Advanced Directive Advanced Directive Advanced [...]
--- OUTSIDE RECORDS SUMMARY | 2023-05-28 23:57 | External Medical Summary | Summary of Care ---
Author Name Unknown Organization [place] [address] Care Team Providers Care Baked Goods Stock Clerk Name Role Phone Felicia Elias Primary Care Provider [phone] Reason for Visit * Reason Onset Date Comments MyCode Consent 02/16/2021 Encounter Details Date Type Department Care Team Description 02/16/2021 Orders Only Outcomes Research Department [address] [place] [address] Gaby Nicole CHRA MyCode Research Other*[id number]* Allergies No Known Active Allergiesdocumented as of this encounter (statuses as of 02/16/2021) Medications Medication Sig Dispensed Refills Start Date End Date Status ASPIRIN 325 MG PO TABS 1 tab at bedtime 0 Active metoprolol succinate XL (TOPROL XL) 25 MG [id number]:Symptom atic PVCs Take 1 Tab by mouth daily. 90 Tab 3 03/30/2020 Active Pravastatin Sodium 20 MG Oral Tablet (PRAVACHOL)Indications: Mixed dyslipidemia,PVC (premature ventricular contraction) TAKE 1 TALBET EACH NIGHT AT BEDTIME 90 Tab 3 06/06/2020 Active Linzess 290 MCG Oral Capsule (linaCLOtide)Indication s:Irritable bowel syndrome with constipation TAKE 1 CAPSULE BY MOUTH DAILY BEFORE BREAKFAST. 30 Cap 5 07/19/2020 Active Finasteride 5 MG Oral Tablet (Proscar)Indications:BP H with obstruction/lower urinary tract symptoms Take 1 Tab by mouth daily. 30 Tab 5 08/15/2020 Active B-12 1000 MCG Oral TabletIndications:B12 deficiency Take 1,000 mcg by mouth daily. 90 Tab 1 08/16/2020 Active DULoxetine HCl 30 MG Oral Capsule Delayed Release Particles (Cymbalta)Indications:L umbar degenerative disc disease,Episode of recurrent major depressive disorder, unspecified depression episode severity (HCC) TAKE 1 CAPSULE BY MOUTH DAILY. DO NOT CUT, CRUSH OR CHEW. 90 Cap 2 09/29/2020 Active Tamsulosin HCl 0.4 MG Oral Capsule (Flomax)Indications:BPH with obstruction/lower urinary tract symptoms TAKE ONE CAPSULE BY MOUTH AT BEDTIME 90 Cap 1 12/05/2020 Active Carbidopa-Levodopa 25-100 MG Oral Tablet (Sinemet)Indications:Pa rkinson's disease (HCC) Take 1 Tab by mouth 3 times a day. 270 Tab 1 12/26/2020 Active documented as of this encounter (statuses as of 02/16/2021) Active Problems Problem Noted Date Prediabetes 08/29/2020 [...] as of this encounter (statuses as of 02/16/2021) Resolved Problems Problem Noted Date Resolved Date [...] as of this encounter (statuses as of 02/16/2021) Immunizations Name Administration Dates Next Due DTaP - Dipth/Tet/Acell Pertussis 07/14/2009 Pneumococcal Conjugate Vacc, 13 Valent (Prevnar) 03/06/2016 Pneumococcal Polysaccharide PPV23 (Pneumovax) 08/19/2013 Seasonal Influenza, Quadriva lent, No Preserve, 6 Mons & Above, IM 06/19/2018,07/23/2017 Seasonal Influenza, Quadriva lent, No Preserve, Adjuvanted, [...] as of this encounter Progress Notes * Gaby Nicole CHRA - 02/16/2021 3:12 PM EDT MyCode Consent Documentation Jacques Alicea provided consent/authorization to participate in the [employer]. documented in this encounter Plan of Treatment Upcoming Encounters Date Type Specialty Care Team Description 04/04/2021 Office Visit Cardiology Kings Camargo MD [address] [address] [phone] 04/21/2021 Office Visit Neurology Tone Chavez, DO [address] [facility] [place] [address] [phone] Scheduled Orders Name Type Priority Associated Diagnoses Orde r Schedule MYCODE INITIAL ADULT Lab Routine MyCode Research Other*[id number] Expected: 02/16/2021 (Approximate), Expires: 03/08/2022 Health Maintenance Due Date Last Done Comments COVID-19 Vaccine (1) 1962 *DEPRESSION SCREENING,ANNUAL FOR PTS 12 AND OVER 10/30/2019 COLONOSCOPY-ANNUAL AGES 18-100 03/08/2021 03/08/2020, 03/08/2020, 12/28/2015, Additional history exists Influenza Vaccine (FLU shot) (#1) 2021 05/05/2020, 08/04/2019, 06/19/2018, Additional history exists Prediabetes-Yearly Hemoglobin A1c 08/15/2021 08/15/2020, 08/15/2020, 08/15/2017 DIABETES SCREEN EVERY 3 YRS-AGE 45 AND ABOVE 08/15/2023 08/15/2020, 08/15/2020, 02/08/2020, Additional history exists DTaP,Tdap,and Td Vaccines (3 - Td) 02/13/2024 02/12/2014, 07/14/2009 LIPID SCREEN EVERY 5 YRS-MEN AGE 35-75 08/15/2025 08/15/2020, 02/08/2020, 08/18/2018, Additional history exists Pneumococcal Vaccine: 65+ Years Completed 03/06/2016, 08/19/2013 ABDOMINAL AORTIC ANEURYSM (AAA) SCREENING Completed 07/25/2017 Zoster Vaccines Completed 02/08/2020, 07/22, 02/12/2014 MENINGOCOCCAL (MENACTRA/MENVEO) Aged Out No longer eligible based on patient's age to complete this topic documented as of this encounter Implants Not on filedocumented as of this encounter Visit Diagnoses Diagnosis MyCode Research Other*[id number] Primary documented in this encounter Advance Directives Documents on File Type Date Recorded 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
--- OUTSIDE RECORDS SUMMARY | 2023-05-28 23:57 | External Medical Summary | Summary of Care ---
Author Name Unknown Organization [place] [address] Care Team Providers Care Curtain Cutter Hand Name Role Phone Felicia Elias PANDA Primary Care Provider [phone] Reason for Visit * Reason Comments Return Neuro Encounter Details Date Type Department Care Team Description 04/21/2021 Office Visit Neurology [facility] [place] [address] [place] [address] Tone Chavez [address] [facility] [place] [address] [phone] Vitamin B12 deficiency*; Parkinson's disease (HCC); Sensory neuronopathy; Abnormal finding of blood chemistry, unspecified Allergies No Known Active Allergiesdocumented as of this encounter (statuses as of 04/21/2021) Medications Medication Sig Dispensed Refills Start Date End Date Status metoprolol succinate XL (TOPROL XL) 25 MG [id number]:S ymptomatic PVCs Take 1 Tab by mouth daily. 90 Tab 3 03/30/2020 Active Pravastatin Sodium 20 MG Oral Tablet (PRAVACHOL)Indica tions:Mixed dyslipidemia,PVC (premature ventricular contraction) TAKE 1 TALBET EACH NIGHT AT BEDTIME 90 Tab 3 06/06/2020 Active Linzess 290 MCG Oral Capsule (linaCLOtide)Divya cations:Irritable bowel syndrome with constipation TAKE 1 CAPSULE BY MOUTH DAILY BEFORE BREAKFAST. 30 Cap 5 07/19/2020 Active Additional Information Patient not taking. Reported on 04/04/2021 Finasteride 5 MG Oral Tablet (Proscar)Indicati ons:BPH with obstruction/lower urinary tract symptoms Take 1 Tab by mouth daily. 30 Tab 5 08/15/2020 Active B-12 1000 MCG Oral TabletIndications :B12 deficiency [...] 81 mg by mouth daily. 0 Active Carbidopa-Levodop a 25-100 MG Oral Tablet (Sinemet)Indicati ons:Parkinson's disease (HCC) Take 1 Tab by mouth 4 times a day. 360 Tab 1 04/21/2021 Active Carbidopa-Levodop a ER 25-100 MG Oral Tablet Extended Release (Sinemet CR)Indications:Pa rkinson's disease (HCC) Take 1 Tab by mouth every night at bedtime. 90 Tab 1 04/21/2021 Active ASPIRIN 325 MG PO TABS 1 tab at bedtime 0 04/21/20 21 Discontinued Carbidopa-Levodop a 25-100 MG Oral Tablet (Sinemet)Indicati ons:Parkinson's disease (HCC) Take 1 Tab by mouth 3 times a day. 270 Tab 1 12/26/2020 04/21/20 21 Discontinued(Ref ill) documented as of this encounter (statuses as of 04/21/2021) Active Problems Problem Noted Date Prediabetes 08/29/2020 [...] as of this encounter (statuses as of 04/21/2021) Resolved Problems Problem Noted Date Resolved Date [...] as of this encounter (statuses as of 04/21/2021) Immunizations Name Administration Dates Next Due COVID-19 mRNA, LNP-s, No Pre serve, 2-Dose Series ([employer]) 11/09/2020,10/19/2020 DTaP - Dipth/Tet/Acell Pertussis 07/14/2009 Pneumococcal [...] Sign Reading Time Taken Comments Blood Pressure 140/80 04/21/2021 9:47 AM EDT Pulse 75 04/21/2021 9:47 AM EDT Temperature 36.6 C (97.8 F) 04/21/2021 9:47 AM ED T Respiratory Rate 18 04/21/2021 9:47 AM EDT Oxygen Saturation 97% 04/21/2021 9:47 AM EDT Inhaled Oxygen Concentration - - Weight 73.3 kg (161 lb 9.6 oz) 04/21/2021 9:47 A M EDT Height - - Body Mass Index 23.86 08/18/2020 2:13 PM EST documented in this encounter Progress Notes * Tone Chavez, DO - 04/21/2021 9:48 AM EDT [place] [address] NAME: Jacques Alicea Date of : 1950 Date of Visit: 04/21/21 Chief Complaint: Chief Complaint Patient presents with Return Neuro Subjective: A 71-year-old male with Parkinson's disease presenting clinic for follow-up. Patient was last seen by myself in March of 2020. Since he also completed EMG and was found have a low vitamin B12 and insulin resistance. Patient remains on Sinemet 1 tab 3 times daily and is taking at thefollowing times: . He does wish to try increasing the dose to see of Sinemet to 4 times dailyif possible as well as he has notices difficult time getting up and walking in the morning. Symptoms in his feet remain about the same. He is on vitamin B12 tablets. Otherwise he remains active. Although he did refill meds dogs is unable to walk long distances. Has noted some decline in his memory a lso. He still is driving. He denies any falls. He does not walk with cane or walker. He is napping during the day. HOME MEDICATIONS : Current Outpatient Medications Medication Sig Dispense Refill Aspirin 81 MG Oral Tablet Delayed Release Take 81 mg by mouth daily. Carbidopa-Levodopa 25-100 MG Oral Tablet (Sinemet) Take 1 Tab by mouth 3 times a day. 270 Tab 1 Tamsulosin HCl 0.4 MG Oral Capsule (Flomax) TAKE ONE CAPSULE BY MOUTH AT BEDTIME 90 Cap 1 DULoxetine HCl 30 MG Oral Capsule Delayed Release Particles (Cymbalta) TAKE 1 CAPSULE BY MOUTH DAILY. DO NOT CUT, CRUSH OR CHEW. 90 Cap 2 B-12 1000 MCG Oral Tablet Take 1,000 mcg by mouth daily. 90 Tab 1 Finasteride 5 MG Oral Tablet (Proscar) Take 1 Tab by mouth daily. 30 Tab 5 Linzess 290 MCG Oral Capsule (linaCLOtide) TAKE 1 CAPSULE BY MOUTH DAILY BEFORE BREAKFAST. (Patientnot taking: Reported on 04/04/2021) 30 Cap 5 Pravastatin Sodium 20 MG Oral Tablet (PRAVACHOL) TAKE 1 TALBET EACH NIGHT AT BEDTIME 90 Tab 3 metoprolol succinate XL (TOPROL XL) 25 MG TB24 Take 1 Tab by mouth daily. 90 Tab 3 Review of patient's allergies indicates: No Known Allergies PHYSICAL EXAMINATION: Vital Signs: There were no vitals taken for this visit. EXAM: Constitutional: appearance normally developed, well nourished Head and Face: normocephalic and atraumatic Eyes: normal lids, normal conjunctiva Neck: supple Respiratory: normal effort Cardiovascular: regular rhythm and normal pulses Abdomen: non distended Skin: no rashes, lesions, or ulcers noted Psychiatric: normal judgement and insight, normal mood and normal affect NEUROLOGIC EXAMINATION: Appearance: no acute distress Orientation: awake, alert and oriented x 3 Mental Status: alert Attention: normal Knowledge: appropriate Language: no aphasia Speech: Soft speech, no dysarthria Cranial Nerves: CN 2 - no visual defect on confrontation and pupils round, equal CN 3, 4, 6 - extra-ocular movements intact and no nystagmus CN 5 - facial sensation intact CN 7 - mask facesCN 8 - intact hearing CN 9, 10 - palate symmetric CN 11 - good shoulder shrug CN 12 - tongue midline Gait: Bradykinetic, turns on block, flexed posture, reduced arm swing Coordination: Resting tremor in the right hand, no ataxia with [id number] testing, rapid alternating movements are bradykinetic Sensory: intact to light touch Muscle Tone: normal Muscle exam: 11/23 throughout LABORATORY: Labs reviewed and pertinent findings are indicated below: Component Latest Ref Rng & Units 08/15/2020 BUN 6 - 20 mg/dL 18 Creatinine 0.6 - 1.2 mg/dL 1.0 Estimated Glomerular Filtration Rate >60 >60.0 Sodium 135 - 146 mmol/L 140 Potassium 3.5 - 5.1 mmol/L 4.3 Chloride 98 - 107 mmol/L 104 CO2 22 - 32 mmol/L 28 Anion Gap 7 - 15 mmol/L 8 Glucose 70 - 120 mg/dL 89 Calcium 8.4 - 10.2 mg/dL 9.4 Hemoglobin A1C 4.0 - 5.6 % 5.7 (H) EST AVG GLUCOSE <126 117 Magnesium 1.5 - 2.6 mg/dL 2.4 LDL Cholesterol (Direct Measure) 0 - 129 mg/dL 82 VITAMIN B1 8 - 30 nmol/L 8 VIT B6, PLASMA 2.1 - 21.7 ng/mL 3.9 Immunofixation Interpretation No monoclonal gammopathy is detected. Folic Acid >4.5 ng/mL 14.6 Vitamin B12 232 - 1,245 pg/mL 194 (L) Review of prior Diagnostic Tests: EMG performed on 07/14/2020: Abnormal study. This electrodiagnostic study shows evidence of followin. 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 2. Chronic left L4-L5 radiculopathy with no active denervation. Review of prior Radiology Studies: IMPRESSION / PLAN: Jacques was seen today for return neuro. Diagnoses and all orders for this visit: Vitamin B12 deficiency - COMPREHENSIVE METABOLIC PANEL - HEMOGLOBIN A1C - CBC - VITAMIN B12 - VITAMIN B1, S/P Parkinson's disease (HCC) - COMPREHENSIVE METABOLIC PANEL - HEMOGLOBIN A1C - CBC - VITAMIN B12 - VITAMIN B1, S/P - Carbidopa-Levodopa 25-100 MG Oral Tablet (Sinemet); Take 1 Tab by mouth 4 times a day. - Carbidopa-Levodopa ER 25-100 MG Oral Tablet Extended Release (Sinemet CR); Take 1 Tab by mouth every night at bedtime. Sensory neuronopathy - COMPREHENSIVE METABOLIC PANEL - HEMOGLOBIN A1C - CBC - VITAMIN B12 - VITAMIN B1, S/P Abnormal finding of blood chemistry, unspecified - HEMOGLOBIN A1C Mr. Alicea is a pleasant 71-year-old male with idiopathic tremor predominant Parkinson's disease currently on Sinemet 25-100 3 times daily. Will try increasing Sinemet to 4 times daily as he is noticing the coverage is wearing off during the day as well as try adding long-acting Sinemet at night so that the patient does not feel as stiff and unable to ambulate in the morning. He does remain active. He is compliant with medications. He has not had any falls required a cane or walker. In regards to lab work will repeat comprehensive metabolic panel, CBC, hemoglobin A1c, vitamin B12, and thiaminelevel. Previous vitamin B12 level was low and says hence he has been taking a vitamin B12 tablets daily. I will plan to see him back in 6 months or sooner if needed. Tone Chavez DO documented in this encounter Nursing Notes * Adriana Pugh LPN - 04/21/2021 9:46 AM EDT Patient identified by name and date of . documented in this encounter Plan of Treatment Upcoming Encounters Date Type Specialty Care Team Description 08/21/2021 Office Visit Family Medicine Elias Duarte DO [address] [address] [phone] 11/21/2021 Office Visit Neurology Tone Chavez DO [address] [facility] [place] [address] [phone] Pending Results Name Type Priority Associated Diagnoses Date /Time COMPREHENSIVE METABOLIC PANEL Lab Routine Vitamin B12 deficiency Parkinson's disease (HCC) Sensory neuronopathy 04/21/2021 10:26 AM EDT HEMOGLOBIN A1C Lab Routine Abnormal finding of blood chemistry, unspecified Vitamin B12 deficiency Parkinson's disease (HCC) Sensory neuronopathy 04/21/2021 10:26 AM EDT VITAMIN B12 Lab Routine Vitamin B12 deficiency Parkinson's disease (HCC) Sensory neuronopathy 04/21/2021 10:26 AM EDT VITAMIN B1, S/P Lab Routine Vitamin B12 deficiency Parkinson's disease (HCC) Sensory neuronopathy 04/21/2021 10:26 AM EDT Health Maintenance Due Date Last Done Comments *DEPRESSION SCREENING,ANNUAL FOR PTS 12 AND OVER 10/30/2019 COLONOSCOPY-ANNUAL AGES 18-100 03/08/2021 03/08/2020, 03/08/2020, 12/28/2015, Additional history exists Prediabetes-Yearly Hemoglobin A1c 08/15/2021 [...] Not on filedocumented as of this encounter Procedures Procedure Name Priority Date/Time Associated Diagnosis Comments CBC Routine 04/21/2021 10:26 AM EDT Vitamin B12 deficiency Parkinson's disease (HCC) Sensory neuronopathy documented in this encounter Results * CBC (04/21/2021 10:26 AM EDT) WBC 4.52 4.00 - 10.80 K/uL [facility] [place] RBC 4.84 4.50 - 5.25 M/uL [facility] [place] - HGB 15.6 14.0 - 16.8 g/dL [facility] - HCT 45.6 40.0 - 48.4 % LAB[facility]ATORY [facility] MCV 94.2 82.0 - 99.[address] [facility] - MCH 32.2 27.0 - 34.[address] [facility] MCHC 34.2 32.0 - 36.0 g/dL [facility] RDW 12.8 11.5 - 15.5 % LAB[facility]ATORY [facility] Plt 155 140 - 400 K/uL [facility] MPV 10.7 6.6 - 11.1 fL LAB[facility]ATORY [facility] Specimen Blood - Venous blood specime n (specimen) Performing Organization Address City/State/[facility] Co de Phone Number [facility] [address] [place] [address] documented in this encounter Visit Diagnoses Diagnosis Vitamin B12 deficiency- Primary Other B-complex deficiencies Parkinson's disease (HCC) Paralysis agitans Sensory neuronopathy Unspecified nerve root and plexus disorder Abnormal finding of blood chemistry, unspecified documented in this encounter Advance Directives Documents on File Type Date Recorded 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
--- OUTSIDE RECORDS SUMMARY | 2023-05-28 23:57 | External Medical Summary ---
Author Name Unknown Address Unknown Organization [id number]:LABORATORY [facility] [place] - [address] [place] [address] Laboratory Report Ordering Provider Test Date Status LEONARDO DELEON 04/21/2021 10:26:49 Final Observation Date Value Abnormality Reference (Units ) Status HbA1C 04/21/2021 10:26:49 5.6 4.0-5.6 (% ) Final The use of HbA1c to monitor glycemic status is based on normal hemoglobin and HbA composition. This test should not be used in patients with abnormal hemoglobin that affects the half life of the red blood cell or the in vivo glycation rates. Glucose, estimated average 04/21/2021 10:26:49 114 <126 (mg/dL) Final Performing Location LABORATORY [facility] - [address] [place] [address]
--- OUTSIDE RECORDS SUMMARY | 2023-05-28 23:57 | External Medical Summary ---
Author Name Unknown Address Unknown Organization [id number]:LABORATORY [facility] [place] [place] - [address] [place] [address] Laboratory Report Ordering Provider Test Date Status SARAH VILLALOBOS 04/21/2021 10:26:49 Final Observation Date Value Abnormality Reference (Units ) Status MYCODE SPECIMEN-SST 04/21/2021 10:26:49 Freezing of extracted DNA, whole blood and/or serum. Final Performing Location LABORATORY [facility] [place] [place] - [address] [place] [address]
--- OUTSIDE RECORDS SUMMARY | 2023-05-28 23:57 | External Medical Summary | Summary of Care ---
Author Name Unknown Organization [place] [address] Care Team Providers Care Engineered Wood Designer Name Role Phone Elias Duarte DO Primary Care Provider Reason for Visit * Reason Onset Date Comments Follow Up Medication Administration 04/04/2021 Flu an d/or Pneumo Inj Encounter Details Date Type Department Care Team Description 04/04/2021 Office Visit Cardiology, [facility] [address] [facility] [place] [address] Kings Camargo MD [facility] [address] [phone] Need for prophylactic vaccination and inoculation against influenza* Allergies No Known Active Allergiesdocumented as of this encounter (statuses as of 04/12/2021) Medications Medication Sig Dispensed Refills Start Date End Date Status ASPIRIN 325 MG PO TABS 1 tab at bedtime 0 Active metoprolol succinate XL (TOPROL XL) 25 MG [id number]:Sympt omatic PVCs Take 1 Tab by mouth [...] 12/05/2020 Active Carbidopa-Levodopa 25-100 MG Oral Tablet (Sinemet)Indications: Parkinson's disease (HCC) Take 1 Tab by mouth 3 times a day. 270 Tab 1 12/26/2020 Active documented as of this encounter (statuses as of 04/12/2021) Active Problems Problem Noted Date Prediabetes 08/29/2020 [...] as of this encounter (statuses as of 04/12/2021) Resolved Problems Problem Noted Date Resolved Date [...] as of this encounter (statuses as of 04/12/2021) Immunizations Name Administration Dates Next Due COVID-19 [...] Sign Reading Time Taken Comments Blood Pressure 136/80 04/04/2021 1:19 PM EDT Pulse 72 04/04/2021 1:19 PM EDT Temperature 36.7 C (98.1 F) 04/04/2021 1:19 PM ED T Respiratory Rate 16 04/04/2021 1:19 PM EDT Oxygen Saturation - - Inhaled Oxygen Concentration - - Weight 71.2 kg (157 lb) 04/04/2021 1:19 PM EDT Height - - Body Mass Index 23.18 08/18/2020 2:13 PM EST documented in this encounter Progress Notes * Garth William RN - 04/04/2021 2:24 PM EDT PRE - ADMINISTRATION DOCUMENTATION Are you experiencing any cold symptoms or fever? No Have you had Guillain-[place] Syndrome (an illness that causes paralysis) within the last 6 weeks? No Have you had the flu shot in the past? YES Have you ever had a reaction to the flu shot? No Garth William RN, 04/04/2021 2:24 PM Immunization Administration Documentation Time Out Procedure Performed: Yes Patient Identified (Ask Name/Date of ): Yes Does the patient have a fever greater than 101 degrees today? No Patient allergic to latex? No VFC Stock: No Immunization(s) verified: Yes, Immunization Name: Flu, VIS Sheet(s) given: Yes Verified Side and Site: Yes Verified Shot(s) with Parent(s)/Patient: Yes * Kings Camargo MD - 04/04/2021 1:48 PM EDT April 04, 2021 Cardiology Follow Up Referring Provider: PCP: ELIAS DUARTE [place] [id number] Chief Complaint: Routine followup, chronic ventricular ectopy SUBJECTIVE: Jacques Alicea is a 71 year old year old male past medical history 1. Chronic ventricular ectopy 2. Dyslipidemia 3. Remote history of sarcoidosis greater than 30 years past without evidence of recurrence 4. Parkinsonism Patient presents today in routine followup. Since last examination he notes no acute cardiac complaints. He is aware of occasional palpitations and ventricular ectopic beats at times. No syncope or near syncope. No chest pain or shortness of breath. Has been wearing support stockings which have been relieving prior pedal edema. No signs of volume overload or congestive heart failure. Parkinsonism has progressed any has begun reducing activities no longer able to walk his dog. Has been of her occasional orthostatic complaints dizziness on standing possible minor visual hallucinations. Feels Parkinson's medications wear off between doses. A Complete Review of Systems is as stated above or negative. Patient Active Problem List Diagnosis Code Mixed dyslipidemia E78.2 Sarcoidosis of lung ([facility]) D86.0 Routine medical exam Z00.00 Special screening for malignant neoplasms, colon Z12.11 Need for prophylactic vaccination against Streptococcus pneumoniae (pneumococcus) Z23 Irritable bowel syndrome with constipation K58.1 PVC (premature ventricular contraction) I49.3 Dizziness R42 Palpitations R00.2 Episode of recurrent major depressive disorder ([facility]) F33.9 Parkinson's disease ([facility]) G20 Lumbar degenerative disc disease M51.36 Prediabetes R73.03 Review of patient's allergies indicates: No Known Allergies Current Outpatient Medications Medication Sig Dispense Refill Carbidopa-Levodopa 25-100 MG Oral Tablet (Sinemet) Take [...] Tab by mouth daily. 30 Tab 5 Pravastatin Sodium 20 MG Oral Tablet (PRAVACHOL) TAKE 1 TALBET EACH NIGHT AT BEDTIME 90 Tab 3 metoprolol succinate XL (TOPROL XL) 25 MG TB24 Take 1 Tab by mouth daily. 90 Tab 3 ASPIRIN 325 MG PO TABS 1 tab at bedtime Linzess 290 MCG Oral Capsule (linaCLOtide) TAKE 1 CAPSULE BY MOUTH DAILY BEFORE BREAKFAST. (Patientnot taking: Reported on 04/04/2021) 30 Cap 5 OBJECTIVE/PHYSICAL EXAMINATION: BP 136/80 (BP Site: Left Arm, BP Position: Sitting, BP Cuff Size: Regular) | Pulse 72 | Temp 36.7 C (98.1 F) (Tympanic) | Resp 16 | Wt 71.2 kg (157 lb) | BMI 23.18 kg/m | BSA 1.86 m General: no acute distress and stated [...] or rubs - normal S-1, normal S-2 single ventricular ectopic beat audible Pulses: 2(+) throughout Abdomen: abdomen soft, non-tender, no abnormal masses, no hepatosplenomegaly, no abdominal bruit, no femoral bruit Musculoskeletal: no gait disturbance, no joint inflammation, no deforming arthritis Extremities: no edema, no cyanosis, pulses intact 2+/4 Neuro: grossly normal exam with flat face ease mild resting tremor Data: EKG performed, 08/15/2020 , and reviewed personally : Sinus rhythm rate of 81 with frequentl ventricular ectopic beats septal Q-wave ST flattening inferiorly similar prior two tracing Stress nuclear imaging December 02, 2020 [...] diastolic function. No significant valvular pathology. ASSESSMENT: 71 year old year old male Followed for history of are chronic ventricular ectopy and cardiac risk factors of dyslipidemia, remote quiescent sarcoidosis. Cardiac status appears stable to slightly improved from last examination. Ectopy appears less prominent cardiac evaluation including echocardiogram and stress nuclear imaging without ischemia with preserved LV systolic function PLAN: Continue current therapies. Discussed orthostasis association with Parkinson's therapies Patient will discuss with Neurology regarding symptoms or complaints include possible minor visual hallucinations DISPOSITION: Routine followup scheduled 6 months time Kings D Raman, MD [facility], [facility] [address] [place] [address] documented in this encounter Nursing Notes * Garth William RN - 04/04/2021 1:18 PM EDT Examination Room: room 14 Name: Jacques Alicea Date of : (1950). Reason for Visit: for follow up Interim Hospitalization(s): denies Problems/Concerns: denies Chest Pain/SOB: denies [facility] way you can [...] Encounters Date Type Specialty Care Team Description 04/21/2021 Office Visit Neurology Tone Chavez, [address] [place] [address] [phone] 08/21/2021 Office Visit Family Medicine Elias Duarte DO [address] [place] [address] [phone] Health Maintenance Due Date Last Done Comments [...] prophylactic vaccination and inoculation against influenza- Primary documented in this encounter Advance Directives Documents on File Type Date Recorded Patient Produce Team Lead Expl anation Advance Directives and Living Will [...] Advanced Directive Advanced Directive Advanced Directive Advanced Directive"
--- OUTSIDE RECORDS SUMMARY | 2023-05-28 23:57 | External Medical Summary ---
Author Name Unknown Address Unknown Organization K09:[facility] [place] [address] Laboratory Report Ordering Provider Test Date Status LEONARDO DELEON 04/21/2021 10:26:49 Final Observation Date Value Abnormality Reference (Units ) Status WBC, Total 04/21/2021 10:26:49 4.52 4.00-10.8 0 (K/uL) Final RBC 04/21/2021 10:26:49 4.84 4.50-5.25 (M/uL) Final Hemoglobin 04/21/2021 10:26:49 15.6 14.0-16.8 (g/dL) Final HCT 04/21/2021 10:26:49 45.6 40.0-48.4 (%) Final MCV 04/21/2021 10:26:49 94.2 82.0-99.5 (fL) Final MCH 04/21/2021 10:26:49 32.2 27.0-34.0 (pg) Final MCHC 04/21/2021 10:26:49 34.2 32.0-36.0 (g/dL) Final RDW 04/21/2021 10:26:49 12.8 11.5-15.5 (%) Final Platelets 04/21/2021 10:26:49 155 140-400 (K /uL) Final MPV 04/21/2021 10:26:49 10.7 6.6-11.1 ( fL) Final Performing Location [facility] [place] [address]
--- OUTSIDE RECORDS SUMMARY | 2023-05-28 23:57 | External Medical Summary | Summary of Care ---
Author Name Unknown Organization [place] [address] Care Team Providers Care Lobby Porter Name Role Phone Elias Duarte DO Primary Care Provider Reason for Visit * Reason Comments eRx-Medication Refill Encounter Details Date Type Department Care Team Description 05/01/2021 Refill Family Practice [facility] 132 [facility] [place] [address] Elias Duarte DO 132 [facility] [place] [address] [phone] Lumbar degenerative disc disease; Episode of recurrent major depressive disorder, unspecified depression episode severity (HCC); BPH with obstruction/lower urinary tract symptoms Allergies No Known Active Allergiesdocumented as of this encounter (statuses as of 05/03/2021) Medications Medication Sig Dispensed Refills Start Date End Date Status metoprolol succinate XL (TOPROL XL) 25 MG [id number]:Sy mptomatic PVCs Take 1 Tab by mouth daily. 90 Tab 3 03/30/2020 Active Pravastatin Sodium 20 MG Oral Tablet (PRAVACHOL)Indicat ions:Mixed dyslipidemia,PVC (premature ventricular contraction) TAKE 1 TALBET EACH NIGHT AT BEDTIME 90 Tab 3 06/06/2020 Active Linzess 290 MCG Oral Capsule (linaCLOtide)Indic ations:Irritable bowel syndrome with constipation TAKE 1 CAPSULE BY MOUTH DAILY BEFORE BREAKFAST. 30 Cap 5 07/19/2020 Active Additional Information Patient not taking. Reported on 04/04/2021 B-12 1000 MCG Oral TabletIndications: B12 deficiency [...] MOUTH DAILY 90 Tab 1 05/03/2021 Active Finasteride 5 MG Oral Tablet (Proscar)Indicatio ns:BPH with obstruction/lower urinary tract symptoms Take 1 Tab by mouth daily. 30 Tab 5 08/15/2020 Discontinued DULoxetine HCl 30 MG Oral Capsule Delayed Release Particles (Cymbalta)Indicati ons:Lumbar degenerative disc disease,Episode of recurrent major depressive disorder, unspecified depression episode severity (HCC) TAKE 1 CAPSULE BY MOUTH DAILY. DO NOT CUT, CRUSH OR CHEW. 90 Cap 2 09/29/2020 Discontinued documented as of this encounter (statuses as of 05/03/2021) Active Problems Problem Noted Date Prediabetes 08/29/2020 [...] as of this encounter (statuses as of 05/03/2021) Resolved Problems Problem Noted Date Resolved Date [...] as of this encounter (statuses as of 05/03/2021) Immunizations Name Administration Dates Next Due COVID-19 mRNA, LNP-s, No Pre serve, 2-Dose Series ([employer]) 11/09/2020,10/19/2020 DTaP - Dipth/Tet/Acell Pertussis 07/14/2009 Pneumococcal [...] encounter Miscellaneous Notes * Telephone Encounter - Julito Lee [facility] - 05/03/2021 11:14 AM EDT Signed Prescriptions: Disp Refills DULoxetine HCl 30 MG Oral Capsule Delayed *90 Cap 1 Sig: TAKE 1 CAPSULE BY MOUTH DAILY. DO NOT CUT, CRUSH OR CHEW.Authorizing Provider: Kelsey DUARTE User: JULITO CAMACHO Finasteride 5 MG Oral Tablet (Proscar) 90 Tab 1 Sig: TAKE ONE TABLET BY MOUTH DAILYAuthorizing Provider: Kelsey DUARTE User: JULITO CAMACHO * Telephone Encounter - Julito Lee [facility] - 05/03/2021 11:13 AM EDT Provided 90 days supply with 1 refill(s) until upcoming appointment. Per refill protocol patient should have PSA on file within past year. Lab work ordered (AMP report and protocol medications checked). Please contact patient to advise of labs. Fasting is not required. Advise to obtain labs before hisscheduled office visit. Thank You, Julito Camacho [facility] Staff Pharmacist Pharmacy Refill Call Center 05/03/2021, 11:13 AM * Telephone Encounter - Julito Lee [facility] - 05/03/2021 11:12 AM EDT Pending Prescriptions: Disp Refills Finasteride 5 MG Oral Tablet (Proscar) [P*30 Tab 5 Sig: TAKE ONE TABLET BY MOUTH DAILY Signed Prescriptions: Disp Refills DULoxetine HCl 30 MG Oral Capsule Delayed *90 Cap 1 Sig: TAKE 1 CAPSULE BY MOUTH DAILY. DO NOT CUT, CRUSH OR CHEW. Authorizing Provider: ELIAS DUARTE Ordering User: JULITO CAMACHO Last Office/Telemedicine Visit: 02/16/2021 Next Office Visit: 08/21/2021 Scheduled Provider(s): Elias Duarte DO If no future appointments scheduled, and last appointment is greater than a year ago, please schedule patient for a follow-up appointment Last date the medication was ordered: 08/15/20 Pharmacy: [facility] [place] [address] [address] [place] Is this request for a controlled substance?No [...] Visit Family Medicine Elias Duarte DO [address] [place] [address] [phone] 11/21/2021 Office Visit Neurology Tone Chavez DO [address] 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
--- OUTSIDE RECORDS SUMMARY | 2023-05-28 23:57 | External Medical Summary | Summary of Care ---
Author Name Unknown Organization [place] [address] Care Team Providers Care Core Measures Abstractor Name Role Phone Elias Duarte DO Primary Care Provider [phone] Reason for Visit * Reason Onset Date Comments Appointment 08/21/2021 Encounter Details Date Type Department Care Team Description 08/21/2021 Telephone Family Practice [facility] [address] [facility] [place] [address] Elias Duarte DO 132 [facility] [place] [address] Appointment Allergies No known active allergiesdocumented as of this encounter (statuses as of 08/22/2021) Medications Medication Sig Dispensed Refills Start Date [...] 25-100 MG Oral Tablet Extended Release (Sinemet CR)Indications:[place] son's disease (HCC) Take 1 Tab by [...] as of this encounter (statuses as of 08/22/2021) Active Problems Problem Noted Date BPH with [...] as of this encounter (statuses as of 08/22/2021) Resolved Problems Problem Noted Date Resolved Date [...] as of this encounter (statuses as of 08/22/2021) Immunizations Name Administration Dates Next Due COVID-19 [...] Miscellaneous Notes * Telephone Encounter - CARMEN Thibodeaux - 08/22/2021 9:02 AM EST Pt declined scheduling at this time. States that he has eye surgeries coming up and will call back when he is ready to reschedule. * Telephone Encounter - CARMEN Pope - 08/21/2021 4:28 PM EST Pt needs scheduled for colonoscopy. Thanks! documented in this encounter Plan of Treatment Upcoming Encounters Date Type Specialty Care Team Description 09/26/2021 Hospital Encounter Surgery Joni Moreno MD [address] [place] [address] 09/26/2021 Surgery Surgery Joni Moreno MD [address] [place] [address] LEFT EXTRACAPSULAR CATARACT REMOVAL WITH INTRAOCULAR LENS 10/10/2021 Hospital Encounter Surgery Joni Moreno MD [address] [place] [address] 10/10/2021 Surgery Surgery Joni Moreno MD [address] [place] [address] Right EXTRACAPSULAR CATARACT REMOVAL WITH INTRAOCULAR LENS 11/21/2021 Office Visit Neurology Tone Chavez, DO [address] [place] [address] Scheduled Procedures Name Priority Associated Diagnoses Date/Ti [...] Documents on File Type Date Recorded 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
--- OUTSIDE RECORDS SUMMARY | 2023-05-28 23:57 | External Medical Summary | Summary of Care ---
Author Name Unknown Organization [place] [address] Care Team Providers Care Manager Industrial Name Role Phone Elias Cleary DO Primary Care Provider [phone] Reason for Referral * Ancillary Services (Within 30 days (routine)) - Authorized Specialty Diagnoses / Procedures Referred By Contac t Referred To Contact Gastroenterology Diagnoses Special screening for malignant neoplasms, colon Elias Cleary DO [address] [facility] [place] [address] Referral ID Status Reason Start Date Expiration Date Visits Requested Visits Authorized [id number] Authorized Ancillary Services Required 08/21/2021 1 1 Question Answer Referral Priority Within 30 days (routine) Comments ALERT: Do not order for pediatric patients (18 years or younger). Cancel off screen and order PEDS GASTROENTEROLOGY CONSULT (Type: 1 visit only-Evaluate and Treat) The following Pt. Instructions are available: - Gastro Colonoscopy Prep Instructions [[id number]] - Gastro Colonoscopy Prep Instructions (Montenegrin Version) [[id number]] Go to the Pt. Instructions section within [...] Team Description 08/21/2021 Office Visit Family Practice [facility] [address] [place] [address] FeliciaElias, DO [address] [place] [address] Preop examination*; Age-related cataract of both eyes, unspecified age-related cataract type; Parkinson's disease (HCC); PVC (premature ventricular contraction); Sarcoidosis of lung (HCC); Episode of recurrent major depressive disorder, unspecified depression episode severity (HCC); BPH with obstruction/lower urinary tract symptoms; Special screening for malignant neoplasms, colon Allergies No known active allergiesdocumented as of this encounter (statuses as of 08/26/2021) Medications Medication Sig Dispensed Refills Start Date [...] as of this encounter (statuses as of 08/26/2021) Active Problems Problem Noted Date BPH with [...] as of this encounter (statuses as of 08/26/2021) Resolved Problems Problem Noted Date Resolved Date [...] as of this encounter (statuses as of 08/26/2021) Immunizations Name Administration Dates Next Due COVID-19 [...] EST Preoperative Risk Assessment Note Jacques Alicea [id number] 08/21/2021 Referred by: Pre-operative evaluation for: Cataract [...] Risk Factors for Cardiac Events: History of NE, cardiac revascularization, cardiac bypass: No History of [...] a flight of steps=4 METs Can do heHyprKey house work=4-10 METs Can participate in strenuous [...] 10/09/2012 COLONOSCOPY FLEXIBLE PROXIMAL DIAGNOSTIC performed by Dlae Whitlock MD at ENDOSCOPY [facility] COLONOSCOPY, DIAGNOSTIC (RECTUM) 12/28/2015 adenomatous polyp, diverticulosis, repeat 3 yrs/COLONOSCOPY FLEXIBLE PROXIMAL DIAGNOSTIC performed by Enid John MD at ENDOSCOPY [facility] COLONOSCOPY, DIAGNOSTIC (RECTUM) 03/08/2020 adenomatous polyps, diverticulosis, repeat 1 yr / COLONOSCOPY FLEXIBLE PROXIMAL DIAGNOSTIC performed by Enid John MD at ENDOSCOPY [facility] COLONOSCOPY/REMOVE LESION 04/27/2010 2 polyps tubulovillous [...] ONE TABLET BY MOUTH EACH NIGHT AT [id number] Tablet 3 No current facility-administered medications for [...] neoplasms, colon - COLONOSCOPY, GI REFERRAL OP Revised Cardiac Risk Index (RCRI): Six independent [...] Surgery Joni Moreno MD [address] [address] 09/26/2021 Surgery Surgery oJni Moreno MD [address] [address] LEFT EXTRACAPSULAR CATARACT REMOVAL WITH INTRAOCULAR LENS 10/10/2021 Hospital Encounter Surgery Joni Moreno MD [address] [address] 10/10/2021 Surgery Surgery Joni Moreno MD [address] [address] Right EXTRACAPSULAR CATARACT REMOVAL WITH INTRAOCULAR LENS 11/21/2021 Office Visit Neurology Tone Chavez DO [address] [place] [address] Scheduled Procedures Name Priority Associated Diagnoses Date/Ti [...] Documents on File Type Date Recorded 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
--- OUTSIDE RECORDS SUMMARY | 2023-05-28 23:57 | External Medical Summary ---
Author Name Unknown Address Unknown Organization K09:[facility] [address] [place] [address] Laboratory Report Ordering Provider Test Date Status LEONARDO DELEON 04/21/2021 10:26:50 Final Observation Date Value Abnormality Reference (Units ) Status BUN 04/21/2021 10:26:50 19 6-20 (mg/dL) Final Creatinine 04/21/2021 10:26:50 0.8 0.6-1.2 (mg/dL) Final Glomerular filtration rate/1.73 sq M.predicted [Volume Rate/Area] in Serum, Plasma or Blood by Creatinine-based formula (CKD-EPI) 04/21/2021 10:26:50 88.6 >=60.0 (mL/min) Final If patient is [place] an, multiply estimated GFR by 1.159. Sodium 04/21/2021 10:26:50 139 135-146 (m mol/L) Final Potassium 04/21/2021 10:26:50 4.4 3.5-5.1 (m mol/L) Final Cl 04/21/2021 10:26:50 102 98-107 (mm ol/L) Final CO2 04/21/2021 10:26:50 26 22-32 (mmo l/L) Final Anion gap 04/21/2021 10:26:50 11 7-15 (mmol /L) Final Glucose 04/21/2021 10:26:50 92 70-120 (mg /dL) Final Albumin 04/21/2021 10:26:50 4.7 3.8-5.0 (g /dL) Final AST (Aspartate aminotransferase) 04/21/2021 10:26:50 18 10-50 (U/L) Fin al Alk Phos 04/21/2021 10:26:50 97 35-130 (U/ L) Final Bilirubin, Total 04/21/2021 10:26:50 0.6 <=1 .2 (mg/dL) Final Calcium 04/21/2021 10:26:50 9.7 8.4-10.2 ( mg/dL) Final Protein 04/21/2021 10:26:50 7.3 6.0-8.3 (g /dL) Final ALT (Alanine aminotransferase) 04/21/2021 10:26:50 <5 Below low normal 10-50 (U/L) Final Performing Location [facility] [address] [place] [address]
--- OUTSIDE RECORDS SUMMARY | 2023-05-28 23:57 | External Medical Summary | Summary of Care ---
Author Name Unknown Organization [place] [address] Care Team Providers Care Bowl Attendant Name Role Phone Eilas Duarte DO Primary Care Provider [phone] Reason for Visit * Reason Onset Date Comments Medication Refill 07/26/2021 Encounter Details Date Type Department Care Team Description 07/26/2021 Refill Family Practice [facility] [address] [facility] [place] [address] Elias Duarte DO [address] [facility] [place] [address] BPH with obstruction/lower urinary tract symptoms Allergies No known active allergiesdocumented as of this encounter (statuses as of 07/27/2021) Medications Medication Sig Dispensed Refills Start Date End Date Status Pravastatin Sodium 20 MG Oral Tablet (PRAVACHOL)Indicat [...] AT BEDTIME 90 Capsule 1 07/27/2021 Active metoprolol succinate XL (TOPROL XL) 25 MG [id number]:Sy mptomatic PVCs Take 1 Tab by mouth daily. 90 Tab 3 03/30/2020 2 Discontinue d(Refill) Tamsulosin HCl 0.4 MG Oral Capsule (Flomax)Indication s:BPH with obstruction/lower urinary tract symptoms TAKE ONE CAPSULE BY MOUTH AT BEDTIME 90 Cap 1 12/05/2020 2 Discontinue d(Refill) documented as of this encounter (statuses as of 07/27/2021) Active Problems Problem Noted Date Parkinson's disease [...] as of this encounter (statuses as of 07/27/2021) Resolved Problems Problem Noted Date Resolved Date [...] as of this encounter (statuses as of 07/27/2021) Immunizations Name Administration Dates Next Due COVID-19 mRNA, LNP-s, No Pre serve, 2-Dose Series (Contract Cloud) 06/08/2021,11/09/2020,10/19/2020 DTaP - Dipth/Tet/Acell Pertussis 07/14/2009 Pneumococcal [...] Telephone Encounter - Elias Duarte DO - 07/27/2021 9:27 AM EST Signed Prescriptions: Disp Refills Tamsulosin HCl 0.4 MG Oral Capsule (Flomax)90 Cap*1 Sig: TAKE ONE CAPSULE BY MOUTH AT BEDTIME Authorizing Provider: ELIAS DUARTE * Telephone Encounter - Tiffany Amos LPN - 07/26/2021 11:39 AM EST Pending Prescriptions: Disp Refills Tamsulosin HCl 0.4 MG Oral Capsule (Floma*90 Cap*1 Sig: TAKE ONE CAPSULE BY MOUTH AT BEDTIME * Telephone Encounter - Tiffany Amos LPN - 07/26/2021 11:39 AM EST Pending Prescriptions: Disp Refills Tamsulosin HCl 0.4 MG Oral Capsule (Floma*90 Cap*1 Sig: TAKE ONE CAPSULE BY MOUTH AT BEDTIME Last Office/Telemedicine Visit: 02/16/2021 08/21/2021 Last date the medication was ordered: 12/05/20 Patient Active Problem List Diagnosis Code Mixed [...] (HCC) G20 Lumbar degenerative disc disease M51.36 Labs: Lab Results Component Value Date/Time CREATININE [...] (H) 08/15/2020 02:14 PM HEMOGLOBIN A1C - CORAZON 5.4 08/15/2017 08:12 AM * Telephone Encounter - CARMEN Dejesus - 07/26/2021 10:23 AM EST Pending Prescriptions: Disp Refills Tamsulosin HCl 0.4 MG Oral Capsule (Floma*90 Cap*1 Sig: TAKE ONE CAPSULE BY MOUTH AT BEDTIME Last Office/Telemedicine Visit: 02/16/2021 Next Office Visit: 08/21/2021 Scheduled Provider(s): Elias Duarte DO If no future appointments scheduled, and last appointment is greater than a year ago, please schedule patient for a follow-up appointment Last date the medication was ordered: 12/05/20 [facility] [address] documented in this encounter Plan of Treatment Upcoming Encounters Date Type Specialty Care Team Description 08/21/2021 Office Visit Family Medicine Elias Duarte DO [address] [place] [address] 11/21/2021 Office Visit Neurology Tone Chavez DO [address] [facility], [place] [address] Scheduled Procedures Name Priority Associated Diagnoses Date/Ti [...] Documents on File Type Date Recorded Patient Firer Powerhouse Expl anation Advanced Directive Advanced Directive Advanced [...] 05/31/2015 12:00 AM ADVANCE DIRECTIVE Care Teams Bowl Attendant Relationship Specialty Start Date End Date Elias Duarte DO [address] [place] [address] PCP - General Family Medicine 07/16/17 documented as of this encounter
--- OUTSIDE RECORDS SUMMARY | 2023-05-28 23:57 | External Medical Summary ---
Author Name Unknown Address Unknown Organization [id number]:LAB[facility]ATORY [facility] [place] - [address] [place] [address] Laboratory Report Ordering Provider Test Date Status SARAH VILLALOBOS 04/21/2021 10:26:49 Final Observation Date Value Abnormality Reference (Units ) Status MYCODE SPECIMEN-SST 04/21/2021 10:26:49 Freezing of extracted DNA, whole blood and/or serum. Final Performing Location [facility] [place] - [address] [place] [address]
--- OUTSIDE RECORDS SUMMARY | 2023-05-28 23:57 | External Medical Summary | Summary of Care ---
Author Name Unknown Organization [place] [address] Care Team Providers Care Scow Derrick Operator Name Role Phone Elias Cleary DO Primary Care Provider [phone] Reason for Visit * Reason Comments Re-Check has list of concersn Encounter Details Date Type Department Care Team Description 02/16/2021 Office Visit Family Practice [facility] [address] [facility] [place] [address] Elias Cleary DO [address] [facility] [place] [address] [phone] Parkinson's disease (HCC)*; Lumbar degenerative disc disease; Sarcoidosis of lung (HCC); Prediabetes; Episode of recurrent major depressive disorder, unspecified depression episode severity ([facility]) Allergies No Known Active Allergiesdocumented as of this encounter (statuses as of 02/21/2021) Medications Medication Sig Dispensed Refills Start Date End Date Status ASPIRIN 325 MG PO TABS 1 tab at bedtime 0 Active metoprolol succinate XL (TOPROL XL) 25 MG [id number]:Symptom atic PVCs Take 1 Tab by mouth [...] as of this encounter (statuses as of 02/21/2021) Active Problems Problem Noted Date Prediabetes 08/29/2020 [...] as of this encounter (statuses as of 02/21/2021) Resolved Problems Problem Noted Date Resolved Date [...] as of this encounter (statuses as of 02/21/2021) Immunizations Name Administration Dates Next Due DTaP [...] Sign Reading Time Taken Comments Blood Pressure 130/80 02/16/2021 3:06 PM EDT Pulse 72 02/16/2021 3:06 PM EDT Temperature 35.6 C (96.1 F) 02/16/2021 3:06 PM ED T Respiratory Rate - - Oxygen Saturation - - Inhaled Oxygen Concentration - - Weight 69.5 kg (153 lb 2 oz) 02/16/2021 3:06 PM EDT Height - - Body Mass Index 22.61 08/18/2020 2:13 PM EST documented in this encounter Progress Notes * Elias Cleary DO - 02/16/2021 3:16 PM EDT Subjective Jacques Alicea is a 71 year old male that presents for Re-Check (has list of concersn) HPI: Patient is a 71-year-old male with history of Parkinson's disease, lumbar degenerative disc disease, sarcoidosis, prediabetes, and depression. Patient complains of depressed mood stating that hehad to give up his pet dog due to increased difficulty walking and fall risk with dog. Patient complains of chronic low back pain and stiffness. Patient denies radiation of pain, or muscle weakness. Patient denies bowel or bladder dysfunction. Patient denies polyuria polydipsia or blurred vision. Patient denies hypoglycemia. Patient denies fever chills or sweats. Patient denies nasal congestion sore throat or earache. Patient denies cough or sputum. Patient denies chest pain shortness breath pal pitations or edema. Patient denies abdominal pain nausea vomiting diarrhea constipation. Patient denies urinary frequency dysuria urgency or hematuria. Patient denies skin rash or lesions. Review systems otherwise negative Objective BP 130/80 | Pulse 72 | Temp 35.6 C (96.1 F) (Tympanic) | Wt 69.5 kg (153 lb 2 oz) | BMI 22.61 kg/m | BSA 1.84 m Body mass index is 22.61 kg/m. BP Readings from Last 3 Encounters: 02/16/21 130/80 08/18/20 134/62 08/15/20 144/86 Wt Readings from Last 3 Encounters: 02/16/21 69.5 kg (153 lb 2 oz) 08/18/20 76.4 kg (168 lb 8 oz) 08/15/20 76.7 kg (169 lb) Physical exam General: alert, healthy and no distress Head: Normocephalic, No masses, lesions, tenderness or abnormalities Eye Exam: PERRLA, EOMI, Conjunctiva are pink and non-injected, sclera clear Ears: External ears normal, Canals [...] range of motion lumbar flexion L1-L5 Extremities: No edema cyanosis or clubbing Neuro Exam: alert & oriented x 3 with fluent speech, no focal motor/sensory deficits, reflexes normal and symmetric, shuffled gait Skin: skin color, texture, turgor are normal, no rashes or significant lesions The following labs were reviewed today: None Assessment and plan Parkinson's disease (HCC) Continue present medical therapy Follow with neurologist Lumbar degenerative disc disease Home physical therapy program Avoid strenuous activities, no heavy lifting Sarcoidosis of lung (HCC) Stable Prediabetes Diabetic diet exercise Episode of recurrent major depressive disorder, unspecified depression episode severity (HCC) Continue present medication Follow up Total time today including reviewing chart before the visit, pertinent labs, imaging reports, face to face time, and documentation time was 40minutes. The above was discussed and understanding was expressed. Elias Cleary DO documented in this encounter Plan of Treatment Upcoming Encounters Date Type Specialty Care Team Description 04/04/2021 Office Visit Cardiology Kings Camargo MD [address] [facility] [address] 04/21/2021 Office Visit [facility] [address] [phone] 08/21/2021 Office Visit Family Medicine Elias Cleary, [address] [place] [address] [phone] Health Maintenance Due Date Last Done Comments [...] Degeneration of lumbar or lumbosacral intervertebral disc Sarcoidosis of lung (HCC) Sarcoidosis Prediabetes Other abnormal glucose Episode of recurrent major depressive disorder, unspecified depression episode severity (HCC) documented in this encounter Advance Directives Documents on File Type Date Recorded Patient Tissue Inserter Expl anation Advance Directives and Living Will [...]
--- OUTSIDE RECORDS SUMMARY | 2023-05-28 23:57 | External Medical Summary ---
Author Name Unknown Address Unknown Organization K01:[facility] - [address] [place] [address] Laboratory Report Ordering Provider Test Date Status SARAH VILLALOBOS 04/21/2021 10:26:48 Final Observation Date Value Abnormality Reference (Units ) Status HENRY SPECIMEN-LAV 04/21/2021 10:26:48 Freezing of extracted DNA, whole blood and/or serum. Final Performing Location [facility]ORY [facility] - [address] [place] [address]
--- OUTSIDE RECORDS SUMMARY | 2023-05-28 23:57 | External Medical Summary | Summary of Care ---
Author Name Unknown Organization [place] [address] Care Team Providers Care Rock Contractor Name Role Phone Elias Duarte DO Primary Care Provider [phone] Reason for Visit * Reason Comments eRx-Medication Refill Encounter Details Date Type Department Care Team Description 08/02/2021 Refill Cardiology, [facility] [address] [place] [address] Mine Camargo MD 132 [facility] [place] [address] Mixed dyslipidemia; PVC (premature ventricular contraction) Allergies No known active allergiesdocumented as of this encounter (statuses as of 08/02/2021) Medications Medication Sig Dispensed Refills Start Date End Date Status Linzess 290 MCG Oral Capsule (linaCLOtide)Divya cations:Irritable bowel syndrome with constipation TAKE 1 CAPSULE BY MOUTH DAILY BEFORE BREAKFAST. 30 Cap 5 07/19/2020 Active Additional Information Patient not taking. Reported on 04/04/2021 B-12 1000 MCG Oral TabletIndications :B12 deficiency [...] 05/03/2021 Active Finasteride 5 MG Oral Tablet (Proscar)Indicati ons:BPH with obstruction/lower urinary tract symptoms TAKE ONE [...] AT BEDTIME 90 Tablet 3 08/02/2021 Active Pravastatin Sodium 20 MG Oral Tablet (PRAVACHOL)Indica tions:Mixed dyslipidemia,PVC (premature ventricular contraction) TAKE 1 TALBET EACH NIGHT AT BEDTIME 90 Tab 3 06/06/2020 08/02/19 22 Discontinued documented as of this encounter (statuses as of 08/02/2021) Active Problems Problem Noted Date Parkinson's disease [...] as of this encounter (statuses as of 08/02/2021) Resolved Problems Problem Noted Date Resolved Date [...] as of this encounter (statuses as of 08/02/2021) Immunizations Name Administration Dates Next Due COVID-19 mRNA, LNP-s, No Pre serve, 2-Dose Series (Tealet) 06/08/2021,11/09/2020,10/19/2020 DTaP - Dipth/Tet/Acell Pertussis 07/14/2009 Pneumococcal [...] encounter Miscellaneous Notes * Telephone Encounter - Mine Camargo MD - 08/02/2021 11:03 AM EST Signed Prescriptions: Disp Refills Pravastatin Sodium 20 MG Oral Tablet (Prav*90 Tab*3 Sig: TAKE ONE TABLET BY MOUTH EACH NIGHT AT BEDTIME Authorizing Provider: MINE CAMARGO * Telephone Encounter - Doris Lopez RN - 08/02/2021 10:45 AM EST Pending Prescriptions: Disp Refills Pravastatin Sodium 20 MG Oral Tablet (Pra*90 Tab*3 Sig: TAKE ONE TABLET BY MOUTH EACH NIGHT AT BEDTIME * Telephone Encounter - Doris Lopez RN - 08/02/2021 10:44 AM EST Pending Prescriptions: Disp Refills Pravastatin Sodium 20 MG Oral Tablet (Pra*90 Tab*3 Sig: TAKE ONE TABLET BY MOUTH EACH NIGHT AT BEDTIME Last Office/Telemedicine Visit: 04/04/2021 Next Office Visit: No Future Appointments If no future appointments scheduled, and last appointment is greater than a year ago, please schedule patient for a follow-up appointment Last date the medication was ordered: [facility] [address] Is this request for a [...] Medicine Elias Duarte DO [address] [place] [address] 11/21/2021 Office Visit Neurology Tone Chavez DO [facility] [address] Scheduled Procedures Name Priority Associated Diagnoses Date/Ti [...] PVC (premature ventricular contraction) Other premature beats documented in this encounter Advance Directives Documents on File Type Date Recorded 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
--- OUTSIDE RECORDS SUMMARY | 2023-05-28 23:57 | External Medical Summary ---
Author Name Unknown Address Unknown Organization K01:[facility] [place] [address] [place] [address] Laboratory Report Ordering Provider Test Date Status LEONARDO DELEON 04/21/2021 10:26:49 Final Observation Date Value Abnormality Reference (Units ) Status Vitamin B12 04/21/2021 10:26:49 686 232-1,24 5 (pg/mL) Final Performing Location [facility] [place] [address] [place] [address]
--- OUTSIDE RECORDS SUMMARY | 2023-05-28 23:57 | External Medical Summary | Summary of Care ---
Author Name Unknown Organization [place] [address] Care Team Providers Care Dry End Tester Name Role Phone Elias Duarte DO Primary Care Provider [phone] Reason for Visit * Reason Onset Date Comments Health Maintenance 04/18/2021 Encounter Details Date Type Department Care Team Description 04/18/2021 Telephone Family Practice [facility] [address] [facility] [address] [phone] Health Maintenance Allergies No Known Active Allergiesdocumented as of this encounter (statuses as of 04/18/2021) Medications Medication Sig Dispensed Refills Start Date End Date Status ASPIRIN 325 MG PO TABS 1 tab at bedtime 0 Active metoprolol succinate XL (TOPROL XL) 25 MG [id number]:Sympt omatic PVCs Take 1 Tab by mouth [...] as of this encounter (statuses as of 04/18/2021) Active Problems Problem Noted Date Prediabetes 08/29/2020 [...] as of this encounter (statuses as of 04/18/2021) Resolved Problems Problem Noted Date Resolved Date [...] as of this encounter (statuses as of 04/18/2021) Immunizations Name Administration Dates Next Due COVID-19 [...] Telephone Encounter - Mary Velazquez LPN - 04/18/2021 2:31 PM EDT Care Gaps Comprehensive Care Outreach Last Office/Telemedicine Visit: Last Office/Telemedicine Visit: 02/16/2021 Last Office/Telemedine Visit Annual Wellness: due Next Office Visit:Next Office Visit: 08/21/2021 Scheduled Provider(s): Elias Duarte DO Reviewed Health Maintenance below Health Maintenance Topic Date Due COLONOSCOPY-ANNUAL AGES 18-100 03/08/2021 Care Gap Outreach Action Taken: Left message documented in this encounter Plan of Treatment Upcoming Encounters Date Type Specialty Care Team Description 04/21/2021 Office Visit Neurology Tone Chavez DO [address] [place] [address] [phone] 08/21/2021 Office Visit Family Medicine Elias Duarte DO 132 [facility] [place] [address] [phone] Health Maintenance Due Date Last Done Comments [...] Documents on File Type Date Recorded 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
--- OUTSIDE RECORDS SUMMARY | 2023-05-28 23:57 | External Medical Summary ---
Author Name Unknown Address Unknown Organization : Laboratory Report Ordering Provider Test Date Status LEONARDO DELEON 04/21/2021 10:26:48 Final Observation Date Value Abnormality Reference (Units ) Status Vitamin B-1, level 04/21/2021 10:26:48 12 8 -30 (nmol/L) Final Vitamin supplementation with in 24 hours prior to
blood draw may affect the accuracy of the results.
This test was developed and its analytical performance
characteristics have been determined by [facility] [place]. It has
not been cleared or approved by the U.S. Food and Drug
Administration. This assay has been validated pursuant
to the CLIA regulations and is used for clinical
purposes.
Test Performed at:
[email or web address]
[address] [facility]
[place] [address]
Kingsley Emery M.D., Ph.D.,Director of Laboratories Performing Location
--- OUTSIDE RECORDS SUMMARY | 2023-05-28 23:57 | External Medical Summary | Summary of Care ---
Author Name Unknown Organization [place] [address] Care Team Providers Care Supervisor Lace Tearing Name Role Phone Elias Duarte DO Primary Care Provider Reason for Visit * Reason Onset Date Comments Medication Refill 07/26/2021 Encounter Details Date Type Department Care Team Description 07/26/2021 Refill Family Practice [facility] 132 [facility] [place] [address] Elias Duarte DO [facility] [place] [address] Symptomatic PVCs Allergies No known active allergiesdocumented [...] MOUTH DAILY 90 Tab 1 05/03/2021 Active Metoprolol Succinate ER 25 MG Oral Tablet Extended Release 24 Hour (toPROL XL)Indications:Sym ptomatic PVCs Take 1 Tablet by mouth daily. 90 Tablet 1 07/27/2021 Active metoprolol succinate XL (TOPROL XL) 25 MG [id number]:Sy mptomatic PVCs Take 1 Tab by mouth daily. 90 Tab 3 03/30/2020 2 Discontinue d(Refill) documented as of this [...] mRNA, LNP-s, No Pre serve, 2-Dose Series (enVista) 06/08/2021,11/09/2020,10/19/2020 DTaP - Dipth/Tet/Acell Pertussis 07/14/2009 Pneumococcal [...] 9:27 AM EST Signed Prescriptions: Disp Refills Metoprolol Succinate ER 25 MG Oral Tablet *90 Tab*1 Sig: Take 1 Tablet by mouth daily. Authorizing Provider: ELIAS DUARTE * Telephone Encounter - Tiffany Amos LPN - 07/26/2021 11:38 AM EST Pending Prescriptions: Disp Refills Metoprolol Succinate ER 25 MG Oral Tablet*90 Tab*1 Sig: Take 1 Tablet by mouth daily. * Telephone Encounter - Tiffany Amos LPN - 07/26/2021 11:37 AM EST Pending Prescriptions: Disp Refills Metoprolol Succinate ER 25 MG Oral Tablet*90 Tab*3 Sig: Take 1 Tablet by mouth daily. Last Office/Telemedicine Visit: 02/16/2021 08/21/2021 Last date the medication was ordered: 03/30/20 Patient Active Problem List Diagnosis Code Mixed [...] A1C - [facility] 5.4 08/15/2017 08:12 AM * Telephone Encounter - CARMEN Dejesus - 07/26/2021 10:31 AM EST Pending Prescriptions: Disp Refills Metoprolol Succinate ER 25 MG Oral Tablet*90 Tab*3 Sig: Take 1 Tablet by mouth daily. Last Office/Telemedicine Visit: 02/16/2021 Next Office Visit: 08/21/2021 Scheduled Provider(s): Elias Duarte DO If no future appointments scheduled, and last appointment is greater than a year ago, please schedule patient for a follow-up appointment Last date the medication was ordered: 03/30/21 Pharmacy: [facility] [address] documented in this encounter Plan of Treatment Upcoming Encounters Date Type Specialty Care Team Description 08/21/2021 Office Visit Family Medicine Elias Duarte DO [address] [place] [address] 11/21/2021 Office Visit Neurology Tone Chavez DO [address] [place] [facility] [place] [address] Scheduled Procedures Name Priority Associated Diagnoses Date/Ti [...] Documents on File Type Date Recorded Patient Assembly Person Expl anation Advanced Directive Advanced Directive Advanced [...] 05/31/2015 12:00 AM ADVANCE DIRECTIVE Care Teams Supervisor Lace Tearing Relationship Specialty Start Date End Date Elias Duarte DO 132 [facility] [place] [address] PCP - General Family Medicine 07/16/17 documented as of this encounter
--- OUTSIDE RECORDS SUMMARY | 2023-05-28 23:58 | External Medical Summary ---
Author Name Unknown Address [address] [place] [address] Phone Organization K01:[place] [id number] Laboratory Report Ordering Provider Test Date Status LEONARDO DELEON 08/15/2020 14:14:00 Final Observation Date Value Abnormality Reference (Units ) Status HbA1C 08/16/2020 00:14 5.7 Above high normal 4.0-5 .6 (%) Final
The use of HbA1c to mon itor glycemic status is
based on normal hemoglobin and HbA composition.
This test should not be used in patients with
abnormal hemoglobin that affects the half life
of the red blood cell or the in vivo glycation
rates.
Glucose, estimated average 08/16/2020 00:14 117 <126 Final Performing Location [address] [address]
--- OUTSIDE RECORDS SUMMARY | 2023-05-28 23:58 | External Medical Summary | Summary of Care ---
Author Name Unknown Organization [place] [address] Care Team Providers Care Primary Teacher Name Role Phone Elias Duarte DO Primary Care Provider Reason for Visit * Reason Comments eRx-Medication Refill Encounter Details Date Type Department Care Team Description 12/04/2020 Refill Family Practice [facility] [address] [facility] [place] [address] Elias Duarte DO [address] [facility] [place] [address] [phone] BPH with obstruction/lower urinary tract symptoms Allergies No Known Active Allergiesdocumented as of this encounter (statuses as of 12/05/2020) Medications Medication Sig Dispensed Refills Start Date End Date Status ASPIRIN 325 MG PO TABS 1 tab at bedtime 0 Active metoprolol succinate XL (TOPROL XL) 25 MG [id number]:Sym ptomatic PVCs Take 1 Tab by mouth daily. 90 Tab 3 03/30/2020 Active Pravastatin Sodium 20 MG Oral Tablet (PRAVACHOL)Indicati ons:Mixed dyslipidemia,PVC (premature ventricular contraction) TAKE 1 TALBET EACH NIGHT AT BEDTIME 90 Tab 3 06/06/2020 Active Linzess 290 MCG Oral Capsule (linaCLOtide)Indica tions:Irritable bowel syndrome with constipation TAKE 1 CAPSULE BY MOUTH DAILY BEFORE BREAKFAST. 30 Cap 5 07/19/2020 Active Finasteride 5 MG Oral Tablet (Proscar)Indication s:BPH with obstruction/lower urinary tract symptoms Take 1 Tab by mouth daily. 30 Tab 5 08/15/2020 Active B-12 1000 MCG Oral TabletIndications:B 12 deficiency [...] AT BEDTIME 90 Cap 1 12/05/2020 Active tamsulosin (FLOMAX) 0.4 MG CapsuleIndications: BPH with obstruction/lower urinary tract symptoms TAKE 1 CAPSULE AT BEDTIME 30 Cap 5 03/30/2020 12/05/2020 Discontinued documented as of this encounter (statuses as of 12/05/2020) Active Problems Problem Noted Date Prediabetes 08/29/2020 [...] as of this encounter (statuses as of 12/05/2020) Resolved Problems Problem Noted Date Resolved Date [...] as of this encounter (statuses as of 12/05/2020) Immunizations Name Administration Dates Next Due DTaP - Dipth/Tet/Acell Pertussis 07/14/2009 Pneumococcal Conjugate Vacc, 13 Valent (Prevnar) 03/06/2016 Pneumococcal Polysaccharide PPV23 (Pneumovax) 08/19/2013 Seasonal Influenza, Quadriva lent, No Preserve, 6 Mons & Above, IM 06/19/2018,07/23/2017 Seasonal Influenza, Quadriva lent, No Preserve, Adjuvanted, 65+ Yrs, IM 05/05/2020 Seasonal Influenza, Quadriva lent, No Preserve, IM 06/28/2015 Seasonal Influenza, Trivalen t, Adjuvanted, 65+ yrs 08/04/2019 Seasonal Influenza, Trivalen t, with Preserve, 3yr & Above, Split 05/04/2014,05/25/2013,07/24/2012,04/23,05/01/2010 TDAP (age 10 and older)(Boostrix) 02/12/2014 Varicella [...] Telephone Encounter - Elias Duarte DO - 12/05/2020 1:25 PM EDT Signed Prescriptions: Disp Refills Tamsulosin HCl 0.4 MG Oral Capsule (Flomax)90 Cap 1 Sig: TAKE ONE CAPSULE BY MOUTH AT BEDTIME Authorizing Provider: ELIAS DUARTE * Telephone Encounter - Julito Lee, [facility] - 12/05/2020 10:09 AM EDT Pending Prescriptions: Disp Refills Tamsulosin HCl 0.4 MG Oral Capsule (Flomax)90 Cap 1 Sig: TAKE ONE CAPSULE BY MOUTH AT BEDTIME * Telephone Encounter - Julito Lee, [facility] - 12/05/2020 10:09 AM EDT Pending Prescriptions: Disp Refills Tamsulosin HCl 0.4 MG Oral Capsule (Flomax)90 Cap 1 Sig: TAKE ONE CAPSULE BY MOUTH AT BEDTIME Last Office/Telemedicine Visit: 08/18/2020 Next Office Visit: 02/16/2021 Scheduled Provider(s): Elias Duarte DO If no future appointments scheduled, and last appointment is greater than a year ago, please schedule patient for a follow-up appointment Last date the medication was ordered: 03/30/20 Pharmacy: [place] [id number] [address] [place] Is this request for a controlled substance?No Urine Drug Screen:No results found for this or any previous visit. Patient Phone Numbers Labs: Lab Results Component Value Date/Time CREAT 1.0 08/15/2020 02:09 PM POTASSIUM 4.3 08/15/2020 02:09 PM TSH 1.66 08/15/2017 08:12 AM LDLCALC 02/08/2020 10:15 AM Uninterpretable, recommend direct LDL cholesterol testing. LDLDIRECT 82 08/15/2020 02:09 PM ALT 20 02/08/2020 10:15 AM HGBA1C 5.7 (H) 08/15/2020 02:14 PM documented in this encounter Plan of Treatment Upcoming Encounters Date Type Specialty Care Team Description 02/16/2021 Office Visit Family Medicine Elias Duarte, [address] [address] [phone] 04/04/2021 Office Visit Cardiology Kings Camargo MD [address] [address] [phone] 04/21/2021 Office Visit Neurology Tone Chavez DO [address] [facility] [address] [phone] Health Maintenance Due Date Last Done Comments [...] 02/12/2014 Influenza Vaccine (FLU shot) Completed , 08/04/2019, 06/19/2018, Additional history exists MENINGOCOCCAL (MENACTRA/MENVEO) Aged Out [...] Documents on File Type Date Recorded Patient Substance Abuse Specialist Expl anation Advance Directives and Living Will [...]
--- OUTSIDE RECORDS SUMMARY | 2023-05-28 23:58 | External Medical Summary | Summary of Care ---
Author Name Unknown Organization [place] [address] Care Team Providers Care Patient Transportation Driver Name Role Phone Felicia Elias Primary Care Provider Reason for Visit * Reason Onset Date Comments Test Results 08/16/2020 Encounter Details Date Type Department Care Team Description 08/16/2020 Telephone Neurology [facility] [place] [address] [place] [address] Tone Chavez DO [address] [place] [id number] Test Results Allergies No Known Active Allergiesdocumented as of this encounter (statuses as of 08/16/2020) Medications Medication Sig Dispensed Refills Start Date End Date Status ASPIRIN 325 MG PO TABS 1 tab at bedtime 0 Active tamsulosin (FLOMAX) 0.4 MG CapsuleIndications:BPH with obstruction/lower urinary tract symptoms TAKE 1 CAPSULE AT BEDTIME 30 Cap 5 03/30/2020 Active metoprolol succinate XL (TOPROL XL) 25 MG [id number]:Symptom atic PVCs Take 1 Tab by mouth daily. 90 Tab 3 03/30/2020 Active DULoxetine HCl 30 MG Oral Capsule Delayed Release Particles (CYMBALTA)Indications:L umbar degenerative disc disease,Episode of recurrent major depressive disorder, unspecified depression episode severity (HCC) TAKE 1 CAPSULE BY MOUTH DAILY. DO NOT CUT, CRUSH OR CHEW. 90 Cap 1 05/09/2020 Active Pravastatin Sodium 20 MG Oral Tablet [...] mouth daily. 90 Tab 1 08/16/2020 Active documented as of this encounter (statuses as of 08/16/2020) Active Problems Problem Noted Date Parkinson's disease [...] as of this encounter (statuses as of 08/16/2020) Resolved Problems Problem Noted Date Resolved Date [...] as of this encounter (statuses as of 08/16/2020) Immunizations Name Administration Dates Next Due DTaP [...] encounter Miscellaneous Notes * Telephone Encounter - Jacki Dao LPN - 08/16/2020 1:28 PM EST Patient verbalizes understanding of all instructions and explanations given. * Telephone Encounter - Tone Chavez DO - 08/16/2020 11:07 AM EST Please advise Jacques that his vitamin B12 level was low. This is likely contributing to his neuropathy. His blood glucose also has increased slightly as hemoglobin A1c is suggestive of prediabetes. Will need to monitor. I will send in a script for vitamin B12 tablet 1000 mcg daily. documented in this encounter Plan of Treatment Upcoming Encounters Date Type Specialty Care Team Description 08/18/2020 Office Visit Family Medicine Elias Duarte, [address] [address] [phone] 08/26/2020 Cardiac Studies Cardiac Studies Gw, [employer] Supervisor [address] [address] [phone] 08/26/2020 Imaging Radiology 10/18/2020 Office Visit Neurology Tone Chavez, DO [address] [facility] [address] [phone] 04/04/2021 Office Visit Cardiology Kings Camargo MD [address] [address] Health Maintenance Due Date Last Done Comments *DEPRESSION SCREENING,ANNUAL FOR PTS 12 AND OVER 10/30/2019 COLONOSCOPY-ANNUAL AGES 18-100 03/08/2021 03/08/2020, 03/08/2020, 12/28/2015, Additional history exists DIABETES SCREEN EVERY 3 YRS-AGE 45 AND [...] as of this encounter Visit Diagnoses Diagnosis B12 deficiency- Primary Other B-complex deficiencies documented in this encounter Advance Directives Documents on File Type Date Recorded 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
--- OUTSIDE RECORDS SUMMARY | 2023-05-28 23:58 | External Medical Summary | Summary of Care ---
Author Name Unknown Organization [place] [address] Care Team Providers Care Trade Union Official Name Role Phone Elias Duarte DO Primary Care Provider [phone] Reason for Referral * Precert (Routine) Status Reason Specialty Diagnoses / Procedures Referred By Contact Referred To Contact Pending Review Precert Cardiac Studies Diagnoses PVC (premature ventricular contraction) Palpitations Mixed dyslipidemia Procedures ECHO, COMPLETE (2D), TRANS-THORACIC Kings Camargo MD [address] [place] [id number] Electronically signed by Kings Camargo MD at * Precert (Routine) Status Reason Specialty Diagnoses / Procedures Referred By Contact Referred To Contact Not Required KB Precert Radiology Diagnoses PVC (premature ventricular contraction) Palpitations Mixed dyslipidemia Procedures NM MYOCARDIAL PERFUSION IMAGING SPECT MULTIPLE STUDIES WITH PHARMACOLOGIC INTERVENTION Kings Camargo MD [address] [place] [address] Electronically signed by Kings Camargo MD at Reason for Visit * Reason Comments Follow Up one year return Encounter Details Date Type Department Care Team Description 08/15/2020 Office Visit Cardiology, [facility] [address] [address] Kings Camargo MD [address] [address] PVC (premature ventricular contraction)*; Palpitations; Mixed dyslipidemia Allergies No Known Active Allergiesdocumented as of this encounter (statuses as of 08/15/2020) Medications Medication Sig Dispensed Refills Start Date End Date Status ASPIRIN 325 MG PO TABS 1 tab at bedtime 0 Active tamsulosin (FLOMAX) 0.4 MG CapsuleIndications:BPH with obstruction/lower urinary tract symptoms TAKE 1 CAPSULE AT BEDTIME 30 Cap 5 03/30/2020 Active metoprolol succinate XL (TOPROL XL) 25 MG [id number]:Symptom atic PVCs Take 1 Tab by mouth [...] mouth daily. 30 Tab 5 08/15/2020 Active documented as of this encounter (statuses as of 08/15/2020) Active Problems Problem Noted Date Parkinson's disease [...] as of this encounter (statuses as of 08/15/2020) Resolved Problems Problem Noted Date Resolved Date [...] as of this encounter (statuses as of 08/15/2020) Immunizations Name Administration Dates Next Due DTaP [...] Sign Reading Time Taken Comments Blood Pressure 144/86 08/15/2020 1:17 PM EST Pulse 76 08/15/2020 1:17 PM EST garth marie Temperature 36.4 C (97.5 F) 08/15/2020 1:17 PM ES T Respiratory Rate 16 08/15/2020 1:17 PM EST Oxygen Saturation - - Inhaled Oxygen Concentration - - Weight 76.7 kg (169 lb) 08/15/2020 1:17 PM EST Height - - Body Mass Index 26.47 03/08/2020 7:22 AM EDT documented in this encounter Patient Instructions * Patient Instructions* Garth William RN - 08/15/2020 1:16 PM EST At this time, to the best of our knowledge, the [facility] will not be administering the COVID-19 vaccine given the specifics needed for administration. Following guidance from [place] Department of Health ([place]), [email or web address] is expanding the availability of COVID-19 vaccines to those who qualify as part of the states Phase 1A group to include people aged 65 and older and those age 16 to 64 with high risk conditions. The CDC has a list of qualifying high risk conditions available online. Foradditional information, please visit [email or web address]/[email or web address]. Should you be eligible, registration for your COVID vaccine appointment is available at this time and can be done through your [employer] account. As we expect high demand for appointment scheduling, if no appointments are available, please check in with the scheduling tool on [employer] regularly as more appointments will be published on a weekly basis as supply, logistics and staffing allow. We appreciate your patience and understanding. If youre unable to schedule through [employer], call [phone]. However, were experiencing high call volumes scheduling through [employer] is the fastest way to secure your appointment. documented in this encounter Progress Notes * Kings Camargo MD - 08/15/2020 1:30 PM EST August 15, 2020 Cardiology Follow Up Referring Provider: PCP: [place] [address] [phone] Chief Complaint: Routine followup, chronic ventricular ectopy SUBJECTIVE: Jacques Alicea is a 70 year old year old male past medical history 1. Chronic ventricular ectopy 2. Dyslipidemia 3. Remote history of sarcoidosis greater than 30 years past without evidence of recurrence 4. Parkinsonism Patient presents today in routine followup of above issues occasionally feels more breathless and fatigued. No dizziness or lightheadedness no syncope or near syncope. Did not tolerate initial therapies for Parkinson's and has discontinued. No fevers chills or unexplained infections. No bleeding dif ficulties. Still wear of palpitations and heart pounding at times. Mild lower extremity edema. A Complete Review of 10 Systems is as stated above or negative. [...] (HCC) G20 Lumbar degenerative disc disease M51.36 Review of patient's allergies indicates: No Known Allergies Current Outpatient Medications Medication Sig Dispense Refill Finasteride 5 MG Oral Tablet (Proscar) Take 1 Tab by mouth daily. 30 Tab 5 Linzess 290 MCG Oral Capsule (linaCLOtide) TAKE 1 CAPSULE BY MOUTH DAILY BEFORE BREAKFAST. 30 Cap 5 Pravastatin Sodium 20 MG Oral Tablet (PRAVACHOL) TAKE 1 TALBET EACH NIGHT AT BEDTIME 90 Tab 3 DULoxetine HCl 30 MG Oral Capsule Delayed Release Particles (CYMBALTA) TAKE 1 CAPSULE BY MOUTH DAILY. DO NOT CUT, CRUSH OR CHEW. 90 Cap 1 metoprolol succinate XL (TOPROL XL) 25 MG TB24 Take 1 Tab by mouth daily. 90 Tab 3 tamsulosin (FLOMAX) 0.4 MG Capsule TAKE 1 CAPSULE AT BEDTIME 30 Cap 5 ASPIRIN 325 MG PO TABS 1 tab at bedtime OBJECTIVE/PHYSICAL EXAMINATION: BP 144/86 (BP Site: Left Arm, BP Position: Sitting, BP Cuff Size: Regular) | Pulse 76 Comment: sandra | Temp 36.4 C (97.5 F) (Tympanic) | Resp 16 | Wt 76.7 kg (169 lb) | BMI 26.47 kg/m | BSA1.9 m General: no acute distress and stated [...] or rubs - normal S-1, normal S-2 occasional ventricular ectopic beats are audible Pulses: 2(+) throughout Abdomen: abdomen soft, non-tender, no abnormal masses, no hepatosplenomegaly, no abdominal bruit, no femoral bruit Musculoskeletal: no gait disturbance, no joint inflammation, no deforming arthritis Extremities: no edema, no cyanosis, pulses intact 2+/4 Neuro: grossly normal exam with flat face ease mild resting tremor Data: EKG performed today, 08/15/2020 , and reviewed personally : Sinus rhythm rate of 81 with frequentl ventricular ectopic beats septal Q-wave ST flattening inferiorly similar prior two tracing Lipid Panel Results: LIPID PANEL Gabriel Dt/Tm Resulted Value Status HOURS FASTING (hours) 02/08/20 10:15A 02/08/20 >8 HOURS F TRIGLYCERIDES (mg/dL) 02/08/20 10:15A 02/08/20 205* F CHOLESTEROL (mg/dL) 02/08/20 10:15A 02/08/20 132 F HDL (mg/dL) 02/08/20 10:15A 02/08/20 36* F NON-HDL CHOLESTEROL (mg/dL) 02/08/20 10:15A 02/08/20 96 F LDL (CALCULATED) (mg/dL) 02/08/20 10:15A 02/08/20 F Value: Uninterpretable, recommend direct LDL cholesterol testing. Stress echocardiogram September 11, 2018 The stress echo is negative for inducible ischemia. Exercise capacity is average . There is an attenuated heart rate response to exercise achieving 76% age predicted maximum heart rate Blood pressure response to exercise was normal. Test was stopped due to fatigue, patient unable to keep pace with treadmill The stress EKG response showed no evidence of ischemia. Ventricular ectopy diminished in frequency with exercise The left ventricular wall motion with stress is normal. The left ventricular ejection fraction increases normally with stress. The left ventricular systolic function is normal. The qualitative LV ejection fraction is 55-59% (normal). There is no valvular disease ASSESSMENT: 70 year old year old male Followed for history of are chronic ventricular ectopy and cardiac risk factors of dyslipidemia, remote quiescent sarcoidosis. Patient has noted recent symptoms increased palpitations dizziness, edema and exertional days PLAN: Echocardiogram combined with stress nuclear imaging to exclude underlying ischemia assess for degree of myocardial scarring given sarcoid history Patient unable ambulate to significant degree due to early Parkinson's disease Lab work ordered to assess electrolytes and LDL DISPOSITION: Routine followup scheduled 6 months time but above studies to be reviewed interim Kings Camargo MD [facility] Cardiology, [address] [address] documented in this encounter Nursing Notes * Garth William RN - 08/15/2020 1:21 PM EST Examination Room: room 14 Name: Jacques Alicea Date of : (1950). Reason for Visit: one year follow up Interim Hospitalization(s): denies Problems/Concerns: denies [...] Description 08/18/2020 Office Visit Family Medicine Elias Duarte DO [address] [address] [phone] 08/26/2020 Cardiac Studies Cardiac Studies Gw, Exercise Rider 2 [address] [address] [phone] 08/26/2020 Imaging Radiology 10/18/2020 Office Visit Neurology Tone Chavez, DO [address] [facility] [place] [address] [phone] 04/04/2021 Office Visit Cardiology Kings Camargo MD [address] [address] [phone] Pending Results Name Type Priority Associated Diagnoses Date /Time BASIC METABOLIC PANEL Lab Routine PVC (premature ventricular contraction) Palpitations Mixed dyslipidemia 08/15/2020 2:09 PM EST LDL CHOLESTEROL (DIRECT MEASURE) Lab Routine PVC (premature ventricular contraction) Palpitations Mixed dyslipidemia 08/15/2020 2:09 PM EST MAGNESIUM Lab Routine PVC (premature ventricular contraction) Palpitations Mixed dyslipidemia 08/15/2020 2:09 PM EST Scheduled Orders Name Type Priority Associated Diagnoses Orde r Schedule EKG EKG Routine PVC (premature ventricular contraction) Ordered: 08/15/2020 BASIC METABOLIC PANEL Lab Routine PVC (premature ventricular contraction) Palpitations Mixed dyslipidemia Expected: 08/15/2020 (Approximate), Expires: 11/13/2020 LDL CHOLESTEROL (DIRECT MEASURE) Lab Routine PVC (premature ventricular contraction) Palpitations Mixed dyslipidemia Expected: 08/15/2020 (Approximate), Expires: 11/13/2020 NM MYOCARDIAL PERFUSION IMAGING SPECT MULTIPLE STUDIES WITH PHARMACOLOGIC INTERVENTION Cardiology Routine PVC (premature ventricular contraction) Palpitations Mixed dyslipidemia Expected: 08/29/2020 (Approximate), Expires: 09/15/2021 MAGNESIUM Lab Routine PVC (premature ventricular contraction) Palpitations Mixed dyslipidemia Expected: 08/15/2020 (Approximate), Expires: 11/13/2020 ECHO, COMPLETE (2D), TRANS-THORACIC Echocardiology Routine PVC (premature ventricular contraction) Palpitations Mixed dyslipidemia Expected: 08/29/2020 (Approximate), Expires: 09/15/2022 Health Maintenance Due Date Last Done Comments *DEPRESSION SCREENING,ANNUAL FOR PTS 12 AND OVER 10/30/2019 COLONOSCOPY-ANNUAL AGES 18-100 03/08/2021 03/08/2020, 03/08/2020, 12/28/2015, Additional history exists DIABETES SCREEN EVERY 3 YRS-AGE 45 AND ABOVE 02/07/2023 02/08/2020, 08/15/2017, 08/15/2017, Additional history exists DTaP,Tdap,and Td Vaccines (3 - Td) 02/13/2024 02/12/2014, 07/14/2009 LIPID SCREEN EVERY 5 YRS-MEN AGE 35-75 02/07/2025 02/08/2020, 08/18/2018, 08/15/2017, Additional history exists Pneumococcal Vaccine: 65+ Years [...] as of this encounter Visit Diagnoses Diagnosis PVC (premature ventricular contraction)- Primary Other premature beats Palpitations Mixed dyslipidemia Mixed hyperlipidemia documented in this encounter Advance Directives Documents on File Type Date Recorded 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
--- OUTSIDE RECORDS SUMMARY | 2023-05-28 23:58 | External Medical Summary ---
Author Name Unknown Address [address] [address] Phone Organization [facility] [address] [facility] [place] [address] Laboratory Report Ordering Provider Test Date Status NINFA BLOUNT 08/15/2020 14:09:00 Final Observation Date Value Abnormality Reference (Units ) Status BUN 08/15/2020 16:29 18 6-20 (mg/dL) Final Creatinine 08/15/2020 16:29 1.0 0.6-1.2 (mg/ dL) Final E Glom Filt Rate 08/15/2020 16:29 >60.0 >60 Final If patient is [place] an, multiply estimated GFR by 1.159. Sodium 08/15/2020 16:29 140 135-146 (mmol /L) Final Potassium 08/15/2020 16:29 4.3 3.5-5.1 (mmol /L) Final Cl 08/15/2020 16:29 104 98-107 (mmol/ L) Final CO2 08/15/2020 16:29 28 22-32 (mmol/L ) Final Anion gap 08/15/2020 16:29 8 7-15 (mmol/L) Final Glucose 08/15/2020 16:29 89 70-120 (mg/dL ) Final Calcium 08/15/2020 16:29 9.4 8.4-10.2 (mg/ dL) Final Performing Location [facility] [address] [facility] [place] [address]
--- OUTSIDE RECORDS SUMMARY | 2023-05-28 23:58 | External Medical Summary | Summary of Care ---
Author Name Unknown Organization [place] [address] Care Team Providers Care Dust Mixer Name Role Phone Elias Duarte DO Primary Care Provider [phone] Reason for Visit * Reason Comments eRx-Medication Refill Encounter Details Date Type Department Care Team Description 09/29/[address] [facility] 132 [facility] [place] [address] Elias Duarte DO 132 [facility] [place] [address] [phone] Lumbar degenerative disc disease; Episode of recurrent major depressive disorder, unspecified depression episode severity (HCC) Allergies No Known Active Allergiesdocumented as of this encounter (statuses as of 09/29/2020) Medications Medication Sig Dispensed Refills Start Date End Date Status ASPIRIN 325 MG PO TABS 1 tab at bedtime 0 Active tamsulosin (FLOMAX) 0.4 MG CapsuleIndications: BPH with obstruction/lower urinary tract symptoms TAKE 1 CAPSULE AT BEDTIME 30 Cap 5 03/30/2020 Active metoprolol succinate XL (TOPROL XL) 25 MG [id number]:Sym ptomatic PVCs Take 1 Tab by mouth [...] OR CHEW. 90 Cap 2 09/29/2020 Active DULoxetine HCl 30 MG Oral Capsule Delayed Release Particles (CYMBALTA)Indicatio ns:Lumbar degenerative disc disease,Episode of recurrent major depressive disorder, unspecified depression episode severity (HCC) TAKE 1 CAPSULE BY MOUTH DAILY. DO NOT CUT, CRUSH OR CHEW. 90 Cap 1 05/09/2020 09/29/2020 Discontinued documented as of this encounter (statuses as of 09/29/2020) Active Problems Problem Noted Date Prediabetes 08/29/2020 [...] as of this encounter (statuses as of 09/29/2020) Resolved Problems Problem Noted Date Resolved Date [...] as of this encounter (statuses as of 09/29/2020) Immunizations Name Administration Dates Next Due DTaP [...] encounter Miscellaneous Notes * Telephone Encounter - Nii Maloney [facility] - 09/29/2020 1:39 PM EST Signed Prescriptions: Disp Refills DULoxetine HCl 30 MG Oral Capsule Delayed *90 Cap 2 Sig: TAKE 1 CAPSULE BY MOUTH DAILY. DO NOT CUT, CRUSH OR CHEW.Authorizing Provider: Kelsey DUARTE User: NII MALONEY documented in this encounter Plan of Treatment Upcoming Encounters Date Type Specialty Care Team Description 10/18/2020 Office Visit Neurology Tone Chavez, DO [address] [place] [place] [address] [phone] 12/02/2020 Cardiac Studies Cardiac Studies , Labourers 2 [address] [place] [address] [phone] 12/02/2020 Imaging Radiology 02/16/2021 Office Visit Family Medicine Elias Duarte DO [address] [place] [address] [phone] 04/04/2021 Office Visit Cardiology Kings Camargo MD [address] [place] [id number] Health Maintenance Due Date Last Done Comments [...] Documents on File Type Date Recorded Patient Film Or Videotape Editor Expl anation Advance Directives and Living Will [...]
--- OUTSIDE RECORDS SUMMARY | 2023-05-28 23:58 | External Medical Summary ---
Author Name Unknown Address [facility] [address] [facility] Phone Organization K01:[place] [address] [address] [place] [id number] Laboratory Report Ordering Provider Test Date Status NINFA BLOUNT 08/15/2020 14:09:00 Final Observation Date Value Abnormality Reference (Units ) Status Magnesium 08/16/2020 00:16 2.4 1.5-2.6 (mg/d L) Final Performing Location [address] [address]
--- OUTSIDE RECORDS SUMMARY | 2023-05-28 23:58 | External Medical Summary | Summary of Care ---
Author Name Unknown Organization [place] [address] Care Team Providers Care Recreational Counselor Name Role Phone Elias Cleary DO Primary Care Provider Reason for Visit * Reason Comments Re-Check Pt here for 3 mo rec heck. Encounter Details Date Type Department Care Team Description 08/18/2020 Office Visit Family Practice [facility] 132 [facility] [place] [address] Elias Cleary DO 132 [facility] [place] [address] [phone] Parkinson's disease (HCC)*; Axonal polyneuropathy; Cerebrovascular disease, arteriosclerotic, post-stroke; Lumbar degenerative disc disease; Left lumbar radiculopathy; PVC (premature ventricular contraction); Irritable bowel syndrome with constipation; B12 deficiency Allergies No Known Active Allergiesdocumented as of this encounter (statuses as of 08/21/2020) Medications Medication Sig Dispensed Refills Start Date End Date Status ASPIRIN 325 MG PO TABS 1 tab at bedtime 0 Active tamsulosin (FLOMAX) 0.4 MG CapsuleIndications:BPH with obstruction/lower urinary tract symptoms TAKE 1 CAPSULE AT BEDTIME 30 Cap 5 03/30/2020 Active metoprolol succinate XL (TOPROL XL) 25 MG [id number]:Symptom atic PVCs Take 1 Tab by mouth [...] as of this encounter (statuses as of 08/21/2020) Active Problems Problem Noted Date Parkinson's disease [...] as of this encounter (statuses as of 08/21/2020) Resolved Problems Problem Noted Date Resolved Date [...] as of this encounter (statuses as of 08/21/2020) Immunizations Name Administration Dates Next Due DTaP [...] Sign Reading Time Taken Comments Blood Pressure 134/62 08/18/2020 2:13 PM EST Pulse 82 08/18/2020 2:13 PM EST Temperature 36.5 C (97.7 F) 08/18/2020 2:13 PM ES T Respiratory Rate 16 08/18/2020 2:13 PM EST Oxygen Saturation - - Inhaled Oxygen Concentration - - Weight 76.4 kg (168 lb 8 oz) 08/18/2020 2:13 PM EST Height 175.3 cm (5' 9") 08/18/2020 2:13 PM EST Body Mass Index 24.88 08/18/2020 2:13 PM EST documented in this encounter Progress Notes * Elias Cleary DO, DO - 08/18/2020 2:22 PM EST Subjective: Brief Clinical History Mr. Alicea is a 70 year old man last seen in Family Medicine 3 months ago (05-16-20). 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 Chief Complaint Patient presents with Re-Check Pt here for 3 mo recheck. HPI: Patient is a 70-year-old male with history of Parkinson's disease, cerebrovascular disease post stroke, lumbar degenerative disc disease and lumbar radiculopathy, PVCs and IBS with constipation.Patient following with neurologist. Patient has discontinued Sinemet due to adverse effects. Patient complains of gait disturbance tremor. Patient denies recent falls. Patient denies headache, blurred vision, loss of balance, muscle weakness or numbness. Patient complains of chronic intermittent low back pain. Patient denies bowel or bladder dysfunction. Patient denies chest pain palpitations shortness of breath or edema. Patient denies cough or sputum. Patient complains of chronic intermittentabdominal pain and constipation. Patient denies nausea vomiting melena hematochezia. Review of systems otherwise negative Past Medical History: Medication list, PMH, Family history, social history, and problem list have been reviewed and updated in the Electronic Medical Record as noted below. Patient Active Problem List Diagnosis Code Mixed [...] G20 Lumbar degenerative disc disease M51.36 Current Outpatient Medications Medication Sig Dispense Refill [...] MG PO TABS 1 tab at bedtime Past Medical History: Diagnosis Date Benign neoplasm [...] by Dale Whitlock MD at [facility] COLONOSCOPY, DIAGNOSTIC (RECTUM) 12/28/2015 adenomatous polyp, diverticulosis, repeat 3 yrs/COLONOSCOPY FLEXIBLE PROXIMAL DIAGNOSTIC performed by Enid John MD at [facility] COLONOSCOPY, DIAGNOSTIC (RECTUM) 03/08/2020 adenomatous polyps, diverticulosis, repeat 1 yr / COLONOSCOPY FLEXIBLE PROXIMAL DIAGNOSTIC performed by Enid John MD at [facility] COLONOSCOPY/REMOVE LESION 04/27/2010 2 polyps tubulovillous adenomas--repeat in 6 months INFORMATION right foot surgery for plantar fascitis REMOVE TONSILS & ADENOIDS, UNDER 12 Review of patient's allergies indicates: No Known Allergies Family History Problem Relation Age of Onset Neurological Disorder Mother dementia No Past Hx Father NO HEALTH HISTORY Diabetes Sister dx in 20's Hypertension Sister Family Status Relation Status Mo (Not Specified) Fa (Not Specified) Sis (Not Specified) Sis (Not Specified) Social History Tobacco Use Smoking status: Former Smoker Packs/day: 1.00 Years: 12.00 Pack years: 12.00 Types: Cigarettes Quit date: 07/22/1974 Years since quittin.1 Smokeless tobacco: Never Used Substance Use Topics Alcohol use: No Vaping/E-Cigarette Use Vaping/E-Cigarette Use Never User Vaping/E-Cigarette Substances Vaping/E-Cigarette Devices Review of Systems: No nausea, vomiting or diarrhea. No chest pain or shortness of breath, No fatigue. No fevers, chillor night sweats. All other ROS examined in detail and are negative except as documented in HPI. All other systems reviewed and are negative. Objective: BP 134/62 (BP Site: Left Arm, BP Position: Sitting, BP Cuff Size: Regular) | Pulse 82 | Temp 36.5 C (97.7 F) (Tympanic) | Resp 16 | Ht 1.753 m (5' 9") | Wt 76.4 kg (168 lb 8 oz) | BMI 24.88 kg/m | BSA 1.93 m Physical Exam: General: alert, healthy and no distress Head: Normocephalic, No masses, lesions, tenderness or abnormalities Eye Exam: PERRLA, EOMI, Conjunctiva are pink and non-injected, fundi benign, sclera clear Ears: External ears normal, Canals clear, TM's Normal Nose: no mucosal erythema, no mucosal edema, no purulent discharge Oropharynx: no exudate, no erythema, lips, buccal mucosa, and tongue normal and dentition normal Neck: supple, no adenopathy, thyroid normal size, non-tender, without nodularity, trachea midline Lymph: no palpable lymphadenopathy Heart: regular rate & rhythm, no murmurs and no gallops Lungs: chest symmetric with normal AP diameter, no chest deformities noted, no chest wall tenderness, lungs clear to auscultation Pulses: carotid=2/4 w/o bruits Abdomen: abdomen soft, non-tender, no masses, no hepatosplenomegaly, no rebound or guarding Back: back symmetric, no curvature, no costovertebral angle tenderness, decreased range of motion lumbar spine flexion L1-L5 Extremities: no edema, no clubbing, no cyanosis Neuro Exam: alert & oriented x 3 with fluent speech, no focal motor/sensory deficits, gait normal, reflexes normal and symmetric, hand tremor, shuffled gait, bradykinesia Skin: skin color, texture, turgor are normal, no rashes or significant lesions ASSESSMENT/PLAN: Parkinson's disease (HCC) (Primary) Axonal polyneuropathy Cerebrovascular disease, arteriosclerotic, post-stroke Continue present medical therapy Follow with neurologist Home physical therapy program Discussed benefit versus risk of Sinemet Lumbar degenerative disc disease Left lumbar radiculopathy Continue home physical therapy program Avoid strenuous activities, no heavy lifting Warm compresses four times daily to affected area PVC (premature ventricular contraction) Continue present medication Irritable bowel syndrome with constipation [place] high-fiber diet MiraLax 1 tbsp in 8 oz water once daily B12 deficiency B12 supplementation, B12 1000 mg 1 tab once daily Elias Cleary DO 08/18/20 documented in this encounter Nursing Notes * Crystal Douglas LPN - 08/18/2020 2:13 PM EST The patient has been properly identified by confirmation of name and date of . Chief Complaint Patient presents with Re-Check Pt here for 3 mo recheck. documented in this encounter Plan of Treatment Upcoming Encounters Date Type Specialty Care Team Description 08/26/2020 Cardiac Studies Cardiac Studies Gw, Hanger Off 2 [address] [place] [address] [phone] 08/26/2020 Imaging Radiology 10/18/2020 Office Visit [facility] [address] [phone] 02/16/2021 Office Visit Family Medicine Elias Cleary DO [address] [place] [address] [phone] 04/04/2021 Office Visit Cardiology Kings Camargo MD [address] [place] [address] [phone] Health Maintenance Due Date Last Done Comments [...] Diagnosis Parkinson's disease (HCC)- Primary Paralysis agitans Axonal polyneuropathy Unspecified hereditary and idiopathic peripheral neuropathy Cerebrovascular disease, arteriosclerotic, post-stroke Cerebral atherosclerosis Lumbar degenerative disc disease Degeneration of lumbar or lumbosacral intervertebral disc Left lumbar radiculopathy Thoracic or lumbosacral neuritis or radiculitis, unspecified PVC (premature ventricular contraction) Other premature beats Irritable bowel syndrome with constipation Irritable bowel syndrome B12 deficiency Other B-complex deficiencies documented in this encounter Advance Directives Documents on File Type Date Recorded Patient Isotope Technician Expl anation Advance Directives and Living Will [...]
--- OUTSIDE RECORDS SUMMARY | 2023-05-28 23:58 | External Medical Summary | Summary of Care ---
Author Name Unknown Organization [place] [address] Care Team Providers Care Contact Printer Dry Film Name Role Phone Elias Duarte DO Primary Care Provider [phone] Reason for Visit * Reason Onset Date Comments Advice 11/02/2020 Encounter Details Date Type Department Care Team Description 11/02/2020 Telephone Family Practice [facility] 132 [facility] [place] [address] [facility]arte DO [facility] [address] [phone] Advice Allergies No Known Active Allergiesdocumented as of this encounter (statuses as of 11/03/2020) Medications Medication Sig Dispensed Refills Start Date End Date Status ASPIRIN 325 MG PO TABS 1 tab at bedtime 0 Active tamsulosin (FLOMAX) 0.4 MG CapsuleIndications:BPH with obstruction/lower urinary tract symptoms TAKE 1 CAPSULE AT BEDTIME 30 Cap 5 03/30/2020 Active metoprolol succinate XL (TOPROL XL) 25 MG [id number]:Symptom atic PVCs Take 1 Tab by mouth [...] OR CHEW. 90 Cap 2 09/29/2020 Active documented as of this encounter (statuses as of 11/03/2020) Active Problems Problem Noted Date Prediabetes 08/29/2020 [...] as of this encounter (statuses as of 11/03/2020) Resolved Problems Problem Noted Date Resolved Date [...] as of this encounter (statuses as of 11/03/2020) Immunizations Name Administration Dates Next Due DTaP [...] encounter Miscellaneous Notes * Telephone Encounter - Yisel Galdamez LPN - 11/03/2020 9:10 AM EDT Called left message on identifiable voice mail and sent a myg message with number to call back withquestions * Telephone Encounter - Elias Duarte DO - 11/02/2020 4:12 PM EDT Advise MiraLax 1 tbsp in 8 oz of water once daily for constipation as needed. Continue high-fiber bland diet and increase fluid intake * Telephone Encounter - Alice Card OSA - 11/02/2020 1:40 PM EDT Pt calling to see what Dr. Duarte would recommend for constant constipation. He stated that he was on medication in the past for this but it did not help. Please advise- call back # is [phone]. Thank you documented in this encounter Plan of Treatment Upcoming Encounters Date Type Specialty Care Team Description 12/02/2020 Cardiac Studies Cardiac Studies Gw, Sales Floor Manager 2 [address] [place] [address] [phone] 12/02/2020 Imaging Radiology 02/16/2021 Office Visit Family Medicine Elias Duarte DO [address] [place] [address] [phone] 04/04/2021 Office Visit Cardiology Kings Camargo MD [address] [place] [address] [phone] 04/21/2021 Office Visit Neurology Tone Chavez DO [address] [place], [place] [address] [phone] Health Maintenance Due Date Last Done Comments [...] Documents on File Type Date Recorded Patient On Awake Counselor Expl anation Advance Directives and Living Will [...]
--- OUTSIDE RECORDS SUMMARY | 2023-05-28 23:58 | External Medical Summary ---
Author Name Unknown Address [address] [facility] [place] [address] Phone Organization K01:[facility] [address] [facility] [place] [address] Laboratory Report Ordering Provider Test Date Status NINFA BLOUNT 08/15/2020 14:09:00 Final Observation Date Value Abnormality Reference (Units ) Status LDL, (direct) 08/16/2020 00:16 82 0-129 (mg /dL) Final
LDL Cholesterol Referen ce Ranges (mg/dL)
<70 Target level for high risk ASCVD patient
<100 Optimal for general population
100-129 Near optimal for general population
130-159 Borderline high
160-189 High
>=190 Very high
Performing Location [facility] [address] [facility] [place] [address]
--- OUTSIDE RECORDS SUMMARY | 2023-05-28 23:58 | External Medical Summary | Summary of Care ---
Author Name Unknown Organization [place] [address] Care Team Providers Care Monologist Name Role Phone Felicia Elias Primary Care Provider Reason for Visit * Reason Onset Date Comments Test Results 08/16/2020 Encounter Details Date Type Department Care Team Description 08/16/2020 Telephone Neurology [facility] [place] [address] [place] [address] Tone Chavez DO [address] [place] [id number] Test Results Allergies No Known Active Allergiesdocumented as of this encounter (statuses as of 08/16/2020) Medications Medication Sig Dispensed Refills Start Date End Date Status ASPIRIN 325 MG PO TABS 1 tab at bedtime 0 Active tamsulosin (FLOMAX) 0.4 MG CapsuleIndications:BPH with obstruction/lower urinary tract symptoms TAKE 1 CAPSULE AT BEDTIME 30 Cap 5 03/30/2020 Active metoprolol succinate XL (TOPROL XL) 25 MG [id number]:Symptom atic PVCs Take 1 Tab by mouth [...] encounter Miscellaneous Notes * Telephone Encounter - Tone Chavez DO [...] Visit Family Medicine Elias Duarte DO 132 [facility] [place] [address] [phone] 08/26/2020 Cardiac Studies Cardiac Studies Gw, Ball Winder [address] [place] [address] [phone] 08/26/2020 Imaging Radiology 10/18/2020 Office Visit Neurology Tone Chavez, DO [address] [place] [address] [phone] 04/04/2021 Office Visit Cardiology Kings Camargo MD [address] [place] [address] [phone] Health Maintenance Due Date Last Done Comments [...] Documents on File Type Date Recorded Patient Printer Apprentice 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 Advanced Directive Advanced Directive Advanced Directive Advanced Directive Advanced Directive
--- OUTSIDE RECORDS SUMMARY | 2023-05-28 23:58 | External Medical Summary ---
Author Name Unknown Address [facility] [place] [address] Phone Organization K01:[place] [id number] Laboratory Report Ordering Provider Test Date Status LEONARDO DELEON 08/15/2020 14:14:00 Final Observation Date Value Abnormality Reference (Units ) Status Folic Acid 08/16/2020 01:37 14.6 >4.5 (ng/mL) Final Performing Location [address] [address]
--- OUTSIDE RECORDS SUMMARY | 2023-05-28 23:58 | External Medical Summary | Summary of Care ---
Author Name Unknown Organization [place] [address] Care Team Providers Care Machinist Tool And Die Name Role Phone Elias Duarte DO Primary Care Provider Reason for Visit * Reason Onset Date Comments Med Request 12/26/2020 Encounter Details Date Type Department Care Team Description 12/26/2020 Telephone Neurology [facility] [place] [address] [place] [address] Tone Chavez DO 200 [facility] [place] [address] [phone] Med Request Allergies No Known Active Allergiesdocumented as of this encounter (statuses as of 12/26/2020) Medications Medication Sig Dispensed Refills Start Date End Date Status ASPIRIN 325 MG PO TABS 1 tab at bedtime 0 Active metoprolol succinate XL (TOPROL XL) 25 MG [id number]:Symptom atic PVCs Take 1 Tab by mouth [...] as of this encounter (statuses as of 12/26/2020) Active Problems Problem Noted Date Prediabetes 08/29/2020 [...] as of this encounter (statuses as of 12/26/2020) Resolved Problems Problem Noted Date Resolved Date [...] as of this encounter (statuses as of 12/26/2020) Immunizations Name Administration Dates Next Due DTaP [...] encounter Miscellaneous Notes * Telephone Encounter - Adriana Pugh LPN - 12/26/2020 1:29 PM EDT Spoke with pt and he will check with pharmacy . Pt verbalizes understanding of med directions * Telephone Encounter - Tone Chavez DO - 12/26/2020 12:25 PM EDT Yes please advise him I sent in a script for Sinemet to the mail pharmacy. 1 tab 3x daily as previous. Thank you * Telephone Encounter - Kerry Ellis OSA - 12/26/2020 11:13 AM EDT Pt calling in, he wants to know if he is allowed to start on the Carbidopa- Levodopa medication again, and if yes he would be a new script called in. Please advise, thank you. documented in this encounter Plan of Treatment Upcoming Encounters Date Type Specialty Care Team Description 02/16/2021 Office Visit Family Medicine Elias Duarte, [address] [place] [address] [phone] 04/04/2021 Office Visit Cardiology Kings Camargo MD [address] [place] [address] 04/21/2021 Office Visit Neurology Tone Chavez DO [address] [place] [facility] [place] [address] [phone] Health Maintenance Due Date Last Done Comments [...] Documents on File Type Date Recorded Patient Stock Clerk Expl anation Advance Directives and Living Will [...]
--- OUTSIDE RECORDS SUMMARY | 2023-05-28 23:58 | External Medical Summary | Summary of Care ---
Author Name Unknown Organization [place] [address] Care Team Providers Care Vice Squad Police Officer Name Role Phone Felicia Elias Primary Care Provider [phone] Reason for Visit * Reason Onset Date Comments Test Results 08/16/2020 Encounter Details Date Type Department Care Team Description 08/16/2020 Telephone Neurology [facility] [place] [address] [place] [address] Tone Chavez DO [address] [place] [id number] Test Results Allergies No Known Active Allergiesdocumented as of this encounter (statuses as of 08/16/2020) Medications Medication Sig Dispensed Refills Start Date End Date Status ASPIRIN 325 MG PO TABS 1 tab at bedtime 0 Active tamsulosin (FLOMAX) 0.4 MG CapsuleIndications:BPH with obstruction/lower urinary tract symptoms TAKE 1 CAPSULE AT BEDTIME 30 Cap 5 03/30/2020 Active metoprolol succinate XL (TOPROL XL) 25 MG [id number]:Symptom atic PVCs Take 1 Tab by mouth [...] Visit Family Medicine Elias Duarte DO 132 [facility] [place] [address] [phone] 08/26/2020 Cardiac Studies Cardiac Studies Gw, Chief Design Branch [address] [place] [address] [phone] 08/26/2020 Imaging Radiology 10/18/2020 Office Visit Neurology Tone Chavez, DO [address] [place] [address] [phone] 04/04/2021 Office Visit Cardiology Kings Camargo MD [address] [place] [address] [phone] Health Maintenance Due Date Last Done Comments [...] Documents on File Type Date Recorded Patient Circuit Judge 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 Advanced Directive Advanced Directive Advanced Directive Advanced Directive Advanced Directive
--- OUTSIDE RECORDS SUMMARY | 2023-05-28 23:58 | External Medical Summary ---
Author Name Unknown Address [address] [place] [address] ) Organization K03:[employer] [address] [place] [address] Laboratory Report Ordering Provider Test Date Status LEONARDO DELEON 08/15/2020 14:14:00 Final Observation Date Value Abnormality Reference (Units ) Status Vitamin B-1, level 08/18/2020 08:54 8 8-30 (nmol/L) Final (NOTE)
Vitamin supplemen tation within 24 hours prior to
blood draw may affect the accuracy of the results.
This test was developed and its analytical performance
characteristics have been determined by [facility] [place], [place]. It has
not been cleared or approved by the U.S. Food and Drug
Administration. This assay has been validated pursuant
to the CLIA regulations and is used for clinical
purposes. Performing Location [facility] [address] [place], [place] [id number]
--- OUTSIDE RECORDS SUMMARY | 2023-05-28 23:58 | External Medical Summary | Summary of Care ---
Author Name Unknown Organization [place] [address] Care Team Providers Care Medical Radiation Tech Name Role Phone Elias Duarte DO Primary Care Provider [phone] Reason for Visit * Reason Onset Date Comments Medication Refill 08/15/2020 Encounter Details Date Type Department Care Team Description 08/15/2020 Refill Family Practice [facility] [place] [address] Elias Duarte DO [address] [facility] [place] [address] [phone] BPH with obstruction/lower urinary tract symptoms Allergies [...] metoprolol succinate XL (TOPROL XL) 25 MG [id number]:Sym ptomatic PVCs Take 1 Tab by mouth [...] mouth daily. 30 Tab 5 08/15/2020 Active Finasteride 5 MG Oral Tablet (PROSCAR)Indication s:BPH with obstruction/lower urinary tract symptoms Take 1 Tab by mouth daily. 30 Tab 5 06/30/2020 08/15/2020 Discontinued (Refill) documented as of this encounter (statuses as [...] Telephone Encounter - Elias Duarte DO - 08/15/2020 11:59 AM EST Signed Prescriptions: Disp Refills Finasteride 5 MG Oral Tablet (Proscar) 30 Tab 5 Sig: Take 1 Tab by mouth daily. Authorizing Provider: ELIAS DUARTE * Telephone Encounter - Ita Whittaker R, CARMEN - 08/15/2020 11:19 AM EST Pending Prescriptions: Disp Refills Finasteride 5 MG Oral Tablet (Proscar) 30 Tab 5 Sig: Take 1 Tab by mouth daily. Last Office/Telemedicine Visit: 05/16/2020 Next Office Visit: 08/18/2020 Scheduled Provider(s): Elias Duarte DO Last date the medication was ordered: 06/30/20 Patient Active Problem List Diagnosis Code Mixed [...] G20 Lumbar degenerative disc disease M51.36 Labs: CREATININE(mg/dL) Gabriel Dt/Tm Resulted Value Status 02/08/20 10:15A 02/08/20 1.0 FINAL POTASSIUM(mmol/L) Gabriel Dt/Tm Resulted Value Status 02/08/20 10:15A 02/08/20 4.7 FINAL TSH(uIU/mL) Gabriel Dt/Tm Resulted Value Status 08/15/17 8:12A 08/15/17 1.66 FINAL LDL (CALCULATED)(mg/dL) Gabriel Dt/Tm Resulted Value Status 02/08/20 10:15A 02/08/20 FINAL Value: Uninterpretable, recommend direct LDL cholesterol testing. 08/18/18 12:44P 08/18/18 61 FINAL ALT(U/L) Gabriel Dt/Tm Resulted Value Status 02/08/20 10:15A 02/08/20 20 FINAL Hemoglobin AIC Results: HEMOGLOBIN, A1C(%) Gabriel Dt/Tm Resulted Value Status 08/15/17 8:12A 08/15/17 5.4 FINAL documented in this encounter Plan of Treatment Upcoming Encounters Date Type Specialty Care Team Description 08/15/2020 Office Visit Cardiology Kings Camargo MD [address] [place] [address] [phone] 08/18/2020 Office Visit Family Medicine Elias Duarte DO [address] [place] [address] [phone] 10/18/2020 Office Visit Neurology Tone Chavez DO [address] [place] [address] [phone] Health Maintenance Due Date Last Done Comments [...] Documents on File Type Date Recorded Patient Security Investigator 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
--- OUTSIDE RECORDS SUMMARY | 2023-05-28 23:58 | External Medical Summary ---
Author Name Unknown Address [address] [place] [address] ) Organization K03[facility] [address] [place] [address] Laboratory Report Ordering Provider Test Date Status LEONARDO DELEON 08/15/2020 14:14:00 Final Observation Date Value Abnormality Reference (Units ) Status C1q Binding Assay 08/19/2020 17:21 3.9 2.1-2 1.7 (ng/mL) Final (NOTE)
Vitamin supplemen tation within 24 hours prior to
blood draw may affect the accuracy of the results.
This test was developed and its analytical performance
characteristics have been determined by [facility] [place], [place]. It has
not been cleared or approved by the U.S. Food and Drug
Administration. This assay has been validated pursuant
to the CLIA regulations and is used for clinical
purposes. Performing Location [facility] [address] [place] [address]
--- OUTSIDE RECORDS SUMMARY | 2023-05-28 23:58 | External Medical Summary | Summary of Care ---
Author Name Unknown Organization [place] [address] Care Team Providers Care Side Puller Name Role Phone Elias Duarte DO Primary Care Provider Reason for Visit * Reason Onset Date Comments Appointment 08/18/2020 Encounter Details Date Type Department Care Team Description 08/18/2020 Telephone Family Practice [facility] 132 [facility] [place] [address] Elias Duarte DO [facility] [place] [address] [phone] Appointment Allergies No Known Active Allergiesdocumented as of this encounter (statuses as of 08/24/2020) Medications Medication Sig Dispensed Refills Start Date End Date Status ASPIRIN 325 MG PO TABS 1 tab at bedtime 0 Active tamsulosin (FLOMAX) 0.4 MG CapsuleIndications:BPH with obstruction/lower urinary tract symptoms TAKE 1 CAPSULE AT BEDTIME 30 Cap 5 03/30/2020 Active metoprolol succinate XL (TOPROL XL) 25 MG [id number]:Symptom atic PVCs Take 1 Tab by mouth [...] as of this encounter (statuses as of 08/24/2020) Active Problems Problem Noted Date Parkinson's disease [...] as of this encounter (statuses as of 08/24/2020) Resolved Problems Problem Noted Date Resolved Date [...] as of this encounter (statuses as of 08/24/2020) Immunizations Name Administration Dates Next Due DTaP [...] encounter Miscellaneous Notes * Telephone Encounter - Sana Waterman OSA - 08/18/2020 3:14 PM EST Pt would like to move his 2-5 echo and NM test into November 2020. Please call and move both to the same day in November 2020 documented in this encounter Plan of Treatment Upcoming Encounters Date Type Specialty Care Team Description 10/18/2020 Office Visit Neurology Tone Chavez, [address] [place] [address] [phone] 12/02/2020 Cardiac Studies Cardiac Studies Gw, Dairy Lab Technician 2 132 [facility] [place] [address] [phone] 12/02/2020 Imaging Radiology 02/16/2021 Office Visit Family Medicine Elias Duarte DO [address] [place] [address] [phone] 04/04/2021 Office Visit Cardiology Kings Camargo MD [address] [place] [address] [phone] Health Maintenance Due Date Last Done Comments [...] Documents on File Type Date Recorded Patient Crown Presser Expl anation Advance Directives and Living Will [...]
--- OUTSIDE RECORDS SUMMARY | 2023-05-28 23:58 | External Medical Summary ---
Author Name Unknown Address [facility] [place] [address] Phone Organization K01:[place] [id number] Laboratory Report Ordering Provider Test Date Status LEONARDO DELEON 08/15/2020 14:14:00 Final Observation Date Value Abnormality Reference (Units ) Status Vitamin B12 08/16/2020 01:37 194 Below low normal 232- 1245 (pg/mL) Final Performing Location [address] [address]
--- OUTSIDE RECORDS SUMMARY | 2023-05-28 23:59 | External Medical Summary | Summary of Care ---
Author Name Unknown Organization [facility] Address [place] [address] Care Team Providers Care Electric Detector Operator Name Role Phone Elias Cleary DO Primary Care Provider [phone] Reason for Visit * Reason Onset Date Comments Edema Pt c/o bilateral leg swelling x 2 months, worse past 4 days. Lightheadedness Pt c/o feeling l ightheadedness, denies fainting. Sx worsened since changing medications for Parkinson's. Medication Administration 05/05/2020 Flu an d/or Pneumo Inj Encounter Details Date Type Department Care Team Description 05/05/2020 Office Visit [facility] [place] [address] Elias Cleary DO [address] [facility] [place] [address] [phone] Parkinson's disease (HCC)*; Lumbar degenerative disc disease; Venous stasis of both lower extremities; Bilateral leg edema; Plantar fasciitis; Need for prophylactic vaccination and inoculation against influenza Allergies No Known Active Allergiesdocumented as of this encounter (statuses as of 05/08/2020) Medications Medication Sig Dispensed Refills Start Date End Date Status ASPIRIN 325 MG PO TABS 1 tab at bedtime 0 Active zoster vac recomb adjuvanted (SHINGRIX) 50 MCG/0.5ML injectionIndication s:Need for vaccination for zoster Inject 0.5 mL into a large muscle now and repeat dose in 60 to 180 days 1 Each 1 08/04/2019 Active LINZESS 290 MCG CapsuleIndications: Irritable bowel syndrome with constipation TAKE 1 CAPSULE BY MOUTH DAILY BEFORE BREAKFAST 30 Cap 5 11/24/2019 Active pravastatin (PRAVACHOL) 20 MG TabletIndications:M ixed dyslipidemia,PVC (premature ventricular contraction) TAKE 1 TALBET EACH NIGHT AT BEDTIME 90 Tab 3 12/29/2019 Active finasteride (PROSCAR) 5 MG TabletIndications:B PH with obstruction/lower urinary tract symptoms Take 1 Tab by mouth daily. 30 Tab 5 12/30/2019 Active DULoxetine (CYMBALTA) 30 MG CPEPIndications:Lum bar degenerative disc disease,Episode of recurrent major depressive disorder, unspecified depression episode severity (HCC) TAKE 1 CAPSULE BY MOUTH DAILY. DO NOT CUT, CRUSH OR CHEW 90 Cap 0 01/26/2020 Active tamsulosin (FLOMAX) 0.4 MG CapsuleIndications: BPH with obstruction/lower urinary tract symptoms TAKE 1 CAPSULE AT BEDTIME 30 Cap 5 03/30/2020 Active gabapentin (NEURONTIN) 100 MG CapsuleIndications: Paresthesia,Tremor TAKE ONE CAPSULE BY MOUTH 3 TIMES DAILY 90 Cap 0 03/30/2020 Active metoprolol succinate XL (TOPROL XL) 25 MG [id number]:Sym ptomatic PVCs Take 1 Tab by mouth daily. 90 Tab 3 03/30/2020 Active Carbidopa-Levodopa 25-100 MG Oral Tablet (SINEMET)Indication s:Balance problem,Gait abnormality,Tremor, Bradykinesia TAKE 1 TABLET 3 TIMES A DAY . 90 Tab 12 05/05/2020 Active aspirin enteric coated (ASPIRIN 81) 81 MG TBEC Take 81 mg by mouth daily. 0 05/05/2020 Discontinued (Medication List Clean Up) documented as of this encounter (statuses as of 05/08/2020) Active Problems Problem Noted Date Parkinson's disease [...] as of this encounter (statuses as of 05/08/2020) Resolved Problems Problem Noted Date Resolved Date [...] as of this encounter (statuses as of 05/08/2020) Immunizations Name Administration Dates Next Due DTaP [...] Used Alcohol Use Drinks/Week oz/Week Comments No Sex Assigned at Date Recorded Not on file Job Start Date Occupation Industry Not on file Not on file Not on file documented as of this encounter Last Filed Vital Signs Vital Sign Reading Time Taken Comments Blood Pressure 140/80 05/05/2020 6:08 PM EDT Pulse 72 05/05/2020 6:08 PM EDT Temperature 36.6 C (97.9 F) 05/05/2020 6:08 PM ED T Respiratory Rate 16 05/05/2020 6:08 PM EDT Oxygen Saturation - - Inhaled Oxygen Concentration - - Weight 80.9 kg (178 lb 4 oz) 05/05/2020 6:08 PM EDT Height - - Body Mass Index 27.92 03/08/2020 7:22 AM EDT documented in this encounter Patient Instructions * Patient Instructions* Crystal Douglas LPN - 05/05/2020 6:07 PM EDT ~~PATIENT INSTRUCTIONS FOR FLU SHOT~~ Possible side effects of influenza vaccine, (flu shot), are usually mild and include: 1. Soreness or redness at injection site 2. Low grade fever 3. Body aches You may use Tylenol/Acetaminophen as needed for these symptoms. LET YOUR DOCTOR KNOW IMMEDIATELY IF YOU HAVE DIFFICULTY BREATHING OR SWALLOWING, EXPERIENCE ITCHINGOF FEET OR HANDS, HAVE SWELLING OF EYES, FACE OR INSIDE OF NOSE. documented in this encounter Progress Notes * Elias Cleary DO - 05/05/2020 6:12 PM EDT Subjective: Brief Clinical History Mr. Alicea is a 70 year old man last seen in Family Medicine 2 months ago (02-08-20). He has h/o chronic lung disease, depression, Episode of recurrent major depressive disorder (HCC), Parkinson's disease, Parkinson's disease ([facility]), and Sarcoidosis of lung ([facility]). Chief Complaint Patient presents with Edema Pt c/o bilateral leg swelling x 2 months, worse past 4 days. Lightheadedness Pt c/o feeling lightheadedness, denies fainting. Sx worsened since changing medications for Parkinson's. Medication Administration Flu and/or Pneumo Inj HPI: Patient is a 70-year-old male with history of Parkinson's disease and lumbar degenerative discdisease. Patient complains of bilateral leg swelling x2 months. Patient denies chest pain, palpitations or shortness of breath. Patient denies cough or sputum. Patient complains of bilateral foot pain. Patient complains of chronic low back pain and stiffness. Patient complains of lightheadedness after abruptly stopping gabapentin. Patient denies abdominal pain nausea vomiting diarrhea constipation. Patient denies fatigue fever chills or sweats. Patient denies skin rash or lesions. Review of systems otherwise negative Past Medical [...] Dispense Refill Carbidopa-Levodopa 25-100 MG Oral Tablet (SINEMET) TAKE 1 TABLET 3 TIMES A DAY . 90 Tab 12 gabapentin (NEURONTIN) 100 MG Capsule TAKE ONE CAPSULE BY MOUTH 3 TIMES DAILY 90 Cap 0 metoprolol succinate XL (TOPROL XL) 25 MG TB24 Take 1 Tab by mouth daily. 90 Tab 3 tamsulosin (FLOMAX) 0.4 MG Capsule TAKE 1 CAPSULE AT BEDTIME 30 Cap 5 DULoxetine (CYMBALTA) 30 MG CPEP TAKE 1 CAPSULE BY MOUTH DAILY. DO NOT CUT, CRUSH OR CHEW 90 Cap 0 finasteride (PROSCAR) 5 MG Tablet Take 1 Tab by mouth daily. 30 Tab 5 pravastatin (PRAVACHOL) 20 MG Tablet TAKE 1 TALBET EACH NIGHT AT BEDTIME 90 Tab 3 LINZESS 290 MCG Capsule TAKE 1 CAPSULE BY MOUTH DAILY BEFORE BREAKFAST 30 Cap 5 ASPIRIN 325 MG PO TABS 1 tab at bedtime zoster vac recomb adjuvanted (SHINGRIX) 50 MCG/0.5ML injection Inject 0.5 mL into a large muscle now and repeat dose in 60 to 180 days 1 Each 1 Past Medical History: Diagnosis Date Benign neoplasm [...] performed by Dale Whitlock MD at ENDOSCOPY [facility] COLONOSCOPY, DIAGNOSTIC (RECTUM) 12/28/2015 adenomatous polyp, diverticulosis, repeat 3 yrs/COLONOSCOPY FLEXIBLE PROXIMAL DIAGNOSTIC performed by Enid John MD at ENDOSCOPY [facility] COLONOSCOPY, DIAGNOSTIC (RECTUM) 03/08/2020 COLONOSCOPY FLEXIBLE PROXIMAL DIAGNOSTIC performed by Enid John MD at ENDOSCOPY [facility] COLONOSCOPY/REMOVE LESION 04/27/2010 2 polyps tubulovillous adenomas--repeat [...] Types: Cigarettes Quit date: 07/22/1974 Years since quittin.8 Smokeless tobacco: Never Used Substance Use Topics Alcohol use: No Vaping/E-Cigarette Use Vaping/E-Cigarette Substances Vaping/E-Cigarette Devices Review of Systems: No nausea, vomiting or diarrhea. No chest pain or shortness of breath, No fatigue. No fevers, chillor night sweats. All other ROS examined in detail and are negative except as documented in HPI. All other systems reviewed and are negative. Objective: BP 140/80 (BP Site: Left Arm, BP Position: Sitting, BP Cuff Size: Regular) | Pulse 72 | Temp 36.6 C (97.9 F) (Tympanic) | Resp 16 | Wt 80.9 kg (178 lb 4 oz) | BMI 27.92 kg/m | BSA 1.96 m Physical Exam: General: alert, healthy and [...] of motion lumbar flexion L1-L5 Extremities: no clubbing, no cyanosis, 1/4 edema bilateral lower extremity, tenderness palpation bilateral heels, Neuro Exam: alert & oriented x 3 with fluent speech, no focal motor/sensory deficits, shuffled gait, decreased DTRs bilateral patella and Achilles Skin: skin color, texture, turgor are normal, no rashes or significant lesions ASSESSMENT/PLAN: Parkinson's disease (HCC) (Primary) Continue present medication Follow with neurology Lumbar degenerative disc disease Home therapeutic exercise Warm compresses four times daily to affected area Avoid strenuous activities, no heavy lifting Venous stasis of both lower extremities Compression stockings Bilateral leg edema - COMPRESSION STOCKING BELOW KNEE,30-40 MM HG Plantar fasciitis Taper off gabapentin as directed Orthotic shoes Need for prophylactic vaccination and inoculation against influenza - INFLUENZA VACC, QUAD, PF, ADJUVANTED, 65+ YRS, IM Elias Cleary DO 05/05/20 * Crystal Douglas LPN - 05/05/2020 6:07 PM EDT PRE - ADMINISTRATION DOCUMENTATION Are you allergic to latex? No Are you experiencing any cold symptoms or fever? No Have you had Guillain-[place] Syndrome (an illness that causes paralysis) within the last 6 weeks? No Have you had the flu shot in the past? YES Have you ever had a reaction to the flu shot? No Crystal Douglas LPN, 05/05/2020 6:07 PM Immunization Administration Documentation Time Out Procedure Performed: Yes Patient Identified (Ask Name/Date of ): Yes Does the patient have a fever greater than 101 degrees today? No Patient allergic to latex? No VFC Stock: No Immunization(s) verified: Yes, Immunization Name: Flu, VIS Sheet(s) given: Yes Verified Side and Site: Yes Verified Shot(s) with Parent(s)/Patient: Yes documented in this encounter Nursing Notes * Crystal Douglas LPN - 05/05/2020 6:06 PM EDT The patient has been properly identified by confirmation of name and date of . Chief Complaint Patient presents with Edema Pt c/o bilateral leg swelling x 2 months, worse past 4 days. Lightheadedness Pt c/o feeling lightheadedness, denies fainting. Sx worsened since changing medications for Parkinson's. documented in this encounter Plan of Treatment Upcoming Encounters Date Type Specialty Care Team Description 05/16/2020 Office Visit Family Medicine Elias Cleary DO [address] [place] [address] [phone] 06/08/2020 Office Visit [facility]h [facility] [place] [address] [phone] 08/15/2020 Office Visit Cardiology Kings Camargo MD [address] [place] [address] [phone] 10/18/2020 Office Visit Neurology Tone Chavez DO 200 [facility], [place] [address] [phone] Health Maintenance Due Date Last Done Comments [...] Degeneration of lumbar or lumbosacral intervertebral disc Venous stasis of both lower extremities Bilateral leg edema Edema Plantar fasciitis Plantar fascial fibromatosis Need for prophylactic vaccination and inoculation against influenza documented in this encounter Advance Directives Documents on File Type Date Recorded Patient Bone Char Kiln Operator 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 Advanced Directive Advanced Directive Advanced Directive"
--- OUTSIDE RECORDS SUMMARY | 2023-05-28 23:59 | External Medical Summary | Summary of Care ---
Author Name Unknown Organization [place] [address] Care Team Providers Care Recreational Specialist Name Role Phone FeliciaElias Primary Care Provider Reason for Visit * Reason Onset Date Comments Medication Refill 05/05/2020 Encounter Details Date Type Department Care Team Description 05/05/2020 Refill Family Practice [facility] [address] [facility] [place] [address] Nam Wagoner, [facility] [address] [facility] [address] [phone] Balance problem; Gait abnormality; Tremor; Bradykinesia Allergies No Known Active Allergiesdocumented as of this encounter (statuses as of 05/05/2020) Medications Medication Sig Dispensed Refills Start Date End Date Status ASPIRIN 325 MG PO TABS 1 tab at bedtime 0 Active zoster vac recomb adjuvanted (SHINGRIX) 50 MCG/0.5ML injectionIndications:N eed for vaccination for zoster Inject 0.5 mL into a large muscle now and repeat dose in 60 to 180 days 1 Each 1 08/04/2019 Active LINZESS 290 MCG CapsuleIndications:Irr itable bowel syndrome with constipation TAKE 1 CAPSULE BY MOUTH DAILY BEFORE BREAKFAST 30 Cap 5 11/24/2019 Active pravastatin (PRAVACHOL) 20 MG TabletIndications:Mixe d dyslipidemia,PVC (premature ventricular contraction) TAKE 1 TALBET EACH NIGHT AT BEDTIME 90 Tab 3 12/29/2019 Active finasteride (PROSCAR) 5 MG TabletIndications:BPH with obstruction/lower urinary tract symptoms Take 1 Tab by mouth daily. 30 Tab 5 12/30/2019 Active DULoxetine (CYMBALTA) 30 MG CPEPIndications:Lumbar degenerative disc disease,Episode of recurrent major depressive disorder, unspecified depression episode severity (HCC) TAKE 1 CAPSULE BY MOUTH DAILY. DO NOT CUT, CRUSH OR CHEW 90 Cap 0 01/26/2020 Active aspirin enteric coated (ASPIRIN 81) 81 MG TBEC Take 81 mg by mouth daily. 0 Active tamsulosin (FLOMAX) 0.4 MG CapsuleIndications:BPH with obstruction/lower urinary tract symptoms TAKE 1 CAPSULE AT BEDTIME 30 Cap 5 03/30/2020 Active gabapentin (NEURONTIN) 100 MG CapsuleIndications:Par esthesia,Tremor TAKE ONE CAPSULE BY MOUTH 3 TIMES DAILY 90 Cap 0 03/30/2020 Active metoprolol succinate XL (TOPROL XL) 25 MG [id number]:Sympto matic PVCs Take 1 Tab by mouth daily. 90 Tab 3 03/30/2020 Active Carbidopa-Levodopa 25-100 MG Oral Tablet (SINEMET)Indications:B alance problem,Gait abnormality,Tremor,Bra dykinesia TAKE 1 TABLET 3 TIMES A DAY . 90 Tab 12 05/05/2020 Active documented as of this encounter (statuses as of 05/05/2020) Active Problems Problem Noted Date Parkinson's disease [...] as of this encounter (statuses as of 05/05/2020) Resolved Problems Problem Noted Date Resolved Date [...] as of this encounter (statuses as of 05/05/2020) Immunizations Name Administration Dates Next Due DTaP - Dipth/Tet/Acell Pertussis 07/14/2009 Pneumococcal Conjugate Vacc, 13 Valent (Prevnar) 03/06/2016 Pneumococcal Polysaccharide PPV23 (Pneumovax) 08/19/2013 Seasonal Influenza, Quadriva lent, No Preserve, 6 Mons & Above, IM 06/19/2018,07/23/2017 Seasonal Influenza, Quadriva lent, No Preserve, IM [...] Telephone Encounter - Tone Chavez DO - 05/05/2020 11:18 AM EDT Signed Prescriptions: Disp Refills Carbidopa-Levodopa 25-100 MG Oral Tablet (*90 Tab 12 Sig: TAKE 1 TABLET 3 TIMES A DAY . Authorizing Provider: TONE CHAVEZ * Telephone Encounter - Eleni Junior LPN - 05/05/2020 11:07 AM EDT Per office note, pt stable on med * Telephone Encounter - Carmina London, LAYTON ASSIST - 05/05/2020 11:01 AM EDT Pt's last visits were with Dr Chavez. Dion is no longer with [facility] [employer]. Forwarding to [employer] pool. * Telephone Encounter - Nam Wagoner RPh - 05/05/2020 10:43 AM EDT Pt requesting refill on carbidopa-levodopa. Med id listed as discontinued. Please advise. Please e-prescribe to [facility] at [facility] if appropriate. Thank You. documented in this encounter Plan of Treatment Upcoming Encounters Date Type Specialty Care Team Description 05/05/2020 Office Visit Family Medicine Elias Duarte DO [address] [place] [address] [phone] 05/16/2020 Office Visit Family Medicine Elias Duarte DO [address] [place] [address] [phone] 06/08/2020 Office Visit Podiatry Vandana Huynh [facility]PM [address] [facility] [place] [id number] 08/15/2020 Office Visit Cardiology Kings Camargo MD [address] [place] [address] 10/18/2020 Office Visit Neurology Tone Chavez DO [address] [facility], [place] [address] [phone] Health Maintenance Due Date Last Done Comments *DEPRESSION SCREENING,ANNUAL FOR PTS 12 AND OVER 10/30/2019 Influenza Vaccine (FLU shot) (#1) 2020 08/04/2019, 06/19/2018, 07/23/2017, Additional history exists DIABETES SCREEN EVERY 3 YRS-AGE 45 AND ABOVE 02/07/2023 02/08/2020, 08/15/2017, 08/15/2017, Additional history exists COLONOSCOPY-EVERY 3 YRS AGES 18-100 03/08/2023 03/08/2020, 03/08/2020, 12/28/2015, Additional history exists DTaP,Tdap,and [...] as of this encounter Visit Diagnoses Diagnosis Balance problem Other symptoms involving nervous and musculoskeletal systems Gait abnormality Abnormality of gait Tremor Abnormal involuntary movements Bradykinesia Abnormal involuntary movements documented in this encounter Advance Directives Documents on File Type Date Recorded Patient Youth Court Judge 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 Advanced Directive Advanced Directive Advanced Directive
--- OUTSIDE RECORDS SUMMARY | 2023-05-28 23:59 | External Medical Summary | Summary of Care ---
Author Name Unknown Organization [place] [address] Care Team Providers Care Electronics Hardware Design Engineer Name Role Phone Elias Duarte DO Primary Care Provider Reason for Visit * Reason Onset Date Comments Advice 05/10/2020 Encounter Details Date Type Department Care Team Description 05/10/2020 Telephone Cardiology, [facility] [address] [place] [address] Kings Camargo MD 132 [facility] [place] [id number] Advice Allergies No Known Active Allergiesdocumented as of this encounter (statuses as of 05/11/2020) Medications Medication Sig Dispensed Refills Start Date [...] mouth daily. 30 Tab 5 12/30/2019 Active tamsulosin (FLOMAX) 0.4 MG CapsuleIndications:BPH with obstruction/lower urinary tract symptoms TAKE 1 CAPSULE AT BEDTIME 30 Cap 5 03/30/2020 Active gabapentin (NEURONTIN) 100 MG CapsuleIndications:Par esthesia,Tremor TAKE ONE CAPSULE BY MOUTH 3 TIMES DAILY 90 Cap 0 03/30/2020 Active metoprolol succinate XL (TOPROL XL) 25 MG [id number]:Sympto matic PVCs Take 1 Tab by mouth daily. 90 Tab 3 03/30/2020 Active Carbidopa-Levodopa 25-100 MG Oral Tablet (SINEMET)Indications:B alance problem,Gait abnormality,Tremor,Bra dykinesia TAKE 1 TABLET 3 TIMES A DAY . 90 Tab 12 05/05/2020 Active DULoxetine HCl 30 MG Oral Capsule Delayed Release Particles (CYMBALTA)Indications: Lumbar degenerative disc disease,Episode of recurrent major depressive disorder, unspecified depression episode severity (HCC) TAKE 1 CAPSULE BY MOUTH DAILY. DO NOT CUT, CRUSH OR CHEW. 90 Cap 1 05/09/2020 Active documented as of this encounter (statuses as of 05/11/2020) Active Problems Problem Noted Date Parkinson's disease [...] as of this encounter (statuses as of 05/11/2020) Resolved Problems Problem Noted Date Resolved Date [...] as of this encounter (statuses as of 05/11/2020) Immunizations Name Administration Dates Next Due DTaP [...] encounter Miscellaneous Notes * Telephone Encounter - Garth William RN - 05/11/2020 1:13 PM EDT LMOM to call the clinic to review the message from Dr. Camargo in regards to the compression stockings. See message below. * Telephone Encounter - Kings Camargo MD - 05/10/2020 4:33 PM EDT I believe compression stockings are always a good idea. There are prescription very high 80s but most can be purchased any retailer including drug stores in [facility] There was an online company known as [employer] which has been relatively inexpensive and good quality product and more fashionable and prescription devices. Would opt for knee-high with medium to firm compression * Telephone Encounter - Bertha Winslow OSA - 05/10/2020 3:36 PM EDT Patient calling in stating he was diagnosed with gravity induced edema and was told by his PCP to get pressure socks. Patient asking if Dr. Camargo has any other ideas or input Please call pt and advise documented in this encounter Plan of Treatment Upcoming Encounters Date Type Specialty Care Team Description 05/16/2020 Office Visit Family Medicine Elias Duarte DO [address] [place] [address] [phone] 06/08/2020 Office Visit Podiatry Vandana Huynh DPM [address] [place] [address] 08/15/2020 Office Visit Cardiology Kings Camargo MD [address] [place] [address] 10/18/2020 Office Visit Neurology Tone Chavez DO [address] [place] [address] [phone] Health Maintenance Due Date Last Done Comments [...] Documents on File Type Date Recorded Patient 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
--- OUTSIDE RECORDS SUMMARY | 2023-05-28 23:59 | External Medical Summary | Summary of Care ---
Author Name Unknown Organization [place] [address] Care Team Providers Care Grinder Set Up Operator Thread Name Role Phone Felicia Elias PANDA Primary Care Provider Reason for Visit * Reason Comments Follow Up bilat feet Encounter Details Date Type Department Care Team Description 07/27/2020 Telemedicine Podiatry [facility] [address] [facility] [place] [address] Vandana Huynh, DPM [address] [facility] [place] [id number] Pain in both feet*; Foot swelling; Lumbar radiculopathy; Polyneuropathy Allergies No Known Active Allergiesdocumented as of this encounter (statuses as of 07/27/2020) Medications Medication Sig Dispensed Refills Start Date End Date Status ASPIRIN 325 MG PO TABS 1 tab at bedtime 0 Active tamsulosin (FLOMAX) 0.4 MG CapsuleIndications:BPH with obstruction/lower urinary tract symptoms TAKE 1 CAPSULE AT BEDTIME 30 Cap 5 03/30/2020 Active metoprolol succinate XL (TOPROL XL) 25 MG [id number]:Symptom atic PVCs Take 1 Tab by mouth daily. 90 Tab 3 03/30/2020 Active Carbidopa-Levodopa 25-100 MG Oral Tablet (SINEMET)Indications:Ba natacha problem,Gait abnormality,Tremor,Jeremy ykinesia TAKE 1 TABLET 3 TIMES A DAY [...] AT BEDTIME 90 Tab 3 06/06/2020 Active Finasteride 5 MG Oral Tablet (PROSCAR)Indications:BP H with obstruction/lower urinary tract symptoms Take 1 Tab by mouth daily. 30 Tab 5 06/30/2020 Active Linzess 290 MCG Oral Capsule (linaCLOtide)Indication s:Irritable bowel syndrome with constipation TAKE 1 CAPSULE BY MOUTH DAILY BEFORE BREAKFAST. 30 Cap 5 07/19/2020 Active documented as of this encounter (statuses as of 07/27/2020) Active Problems Problem Noted Date Parkinson's disease [...] as of this encounter (statuses as of 07/27/2020) Resolved Problems Problem Noted Date Resolved Date [...] as of this encounter (statuses as of 07/27/2020) Immunizations Name Administration Dates Next Due DTaP [...] as of this encounter Progress Notes * Vandana Huynh, HIPOLITO - 07/27/2020 2:53 PM EST After connecting to the patient via telephone, the patient was identified by name and date of . Patient was then informed that this was a telephone call only visit. The patient agreed to participate. Visit Disposition: Routine follow-up Total call duration was 3 minutes. I reviewed EMG results with patient. 07/14/[address] Chavez. ([facility] results) Impression: Abnormal study. This electrodiagnostic study shows evidence of followin. 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 2. Chronic left L4-L5 radiculopathy with no active denervation. Patient states he tried compression stockings with minimal change in his swelling. He admits to discomfort in feet. He feels this issue has been going on for 30 years and he felt it was more back/neurological. He feels he has tried therapy and other modalities without much relief. I recommended PCPand referral for radiculopathy. He requested I also message Dr. Chavez. documented in this encounter Nursing Notes * Sana Root LPN - 07/27/2020 1:04 PM EST Pt scheduled for follow up visit, regarding both feet. States has some 'discomfort, not pain' in both feet. Had bilat lower extremity EMG 07/14/2020, is wearing compression stockings. documented in this encounter Plan of Treatment Upcoming Encounters Date Type Specialty Care Team Description 08/15/2020 Office Visit Cardiology Kings Camargo MD [address] [place] [address] [phone] 08/18/2020 Office Visit Family Medicine Elias Duarte DO [address] [place] [address] [phone] 10/18/2020 Office Visit Neurology Tone Chavez DO [address] [place] [address] [phone] Health Maintenance Due Date Last Done Comments [...] as of this encounter Visit Diagnoses Diagnosis Pain in both feet- Primary Pain in limb Foot swelling Swelling of limb Lumbar radiculopathy Thoracic or lumbosacral neuritis or radiculitis, unspecified Polyneuropathy Unspecified hereditary and idiopathic peripheral neuropathy documented in this encounter Advance Directives Documents on File Type Date Recorded Patient Magnetic Prospector 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
--- OUTSIDE RECORDS SUMMARY | 2023-05-28 23:59 | External Medical Summary | Summary of Care ---
Author Name Unknown Organization [place] [address] Care Team Providers Care Circular Head Saw Operator Name Role Phone Elias Duarte DO Primary Care Provider Reason for Visit * Reason Onset Date Comments Advice 05/10/2020 Encounter Details Date Type Department Care Team Description 05/10/2020 Telephone Cardiology, [facility] [address] [place] [address] Kings Camargo MD 132 [facility] [place] [id number] Advice Allergies No Known Active Allergiesdocumented as of this encounter (statuses as of 05/10/2020) Medications Medication Sig Dispensed Refills Start Date [...] metoprolol succinate XL (TOPROL XL) 25 MG [id number]:Sympto matic PVCs Take 1 Tab by mouth [...] as of this encounter (statuses as of 05/10/2020) Active Problems Problem Noted Date Parkinson's disease [...] as of this encounter (statuses as of 05/10/2020) Resolved Problems Problem Noted Date Resolved Date [...] as of this encounter (statuses as of 05/10/2020) Immunizations Name Administration Dates Next Due DTaP [...] encounter Miscellaneous Notes * Telephone Encounter - Kings Camargo MD - 05/10/2020 4:33 PM EDT I believe compression stockings are always a good idea. There are prescription very high 80s but most can be purchased any retailer including drug stores in [facility] There was an online company known as [employer] which has been relatively inexpensive and good [...] Elias Duarte DO [address] [place] [address] [phone] 06/08/2020 Office Visit Podiatry Vandana Huynh, DPM [address] [facility] [place] [address] 08/15/2020 Office Visit Cardiology Kings Camargo MD [address] [place] [address] [phone] 10/18/2020 Office Visit Neurology Tone Chavez, [address] [facility] [address] [phone] Health Maintenance Due Date Last Done Comments [...] Documents on File Type Date Recorded Patient Customer Success 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 Advanced Directive Advanced Directive Advanced Directive
--- OUTSIDE RECORDS SUMMARY | 2023-05-28 23:59 | External Medical Summary | Summary of Care ---
Author Name Unknown Organization [place] [address] Care Team Providers Care Molding Supervisor Name Role Phone Felicia Elias Primary Care Provider Reason for Visit * Reason Onset Date Comments Test Results 08/01/2020 Encounter Details Date Type Department Care Team Description 08/01/2020 Telephone Neurology [facility] [address] [place] [address] Tone Chavez [address] [place] [address] Test Results Allergies No Known Active Allergiesdocumented as of this encounter (statuses as of 08/01/2020) Medications Medication Sig Dispensed Refills Start Date End Date Status ASPIRIN 325 MG PO TABS 1 tab at bedtime 0 Active tamsulosin (FLOMAX) 0.4 MG CapsuleIndications: BPH with obstruction/lower urinary tract symptoms TAKE 1 CAPSULE AT BEDTIME 30 Cap 5 03/30/2020 Active metoprolol succinate XL (TOPROL XL) 25 MG [id number]:Sym ptomatic PVCs Take 1 Tab by mouth [...] 06/06/2020 Active Finasteride 5 MG Oral Tablet (PROSCAR)Indication s:BPH with obstruction/lower urinary tract symptoms Take 1 Tab by mouth daily. 30 Tab 5 06/30/2020 Active Linzess 290 MCG Oral Capsule (linaCLOtide)Indica tions:Irritable bowel syndrome with constipation TAKE 1 CAPSULE BY MOUTH DAILY BEFORE BREAKFAST. 30 Cap 5 07/19/2020 Active Carbidopa-Levodopa 25-100 MG Oral Tablet (SINEMET)Indication s:Balance problem,Gait abnormality,Tremor, Bradykinesia TAKE 1 TABLET 3 TIMES A DAY . 90 Tab 12 05/05/2020 08/01/2020 Discontinued (Adverse reaction) documented as of this encounter (statuses as of 08/01/2020) Active Problems Problem Noted Date Parkinson's disease [...] as of this encounter (statuses as of 08/01/2020) Resolved Problems Problem Noted Date Resolved Date [...] as of this encounter (statuses as of 08/01/2020) Immunizations Name Administration Dates Next Due DTaP [...] Telephone Encounter - Tone Chavez DO - 08/01/2020 2:38 PM EST Discussed results of EMG. Will check B12, folic acid, immunofixation, Ha1C, B6, and thiamine. Patient is not having any low back pain or sciatica. Will defer on ordering a MRI of the lumbar spine. He is not tolerating Sinemet well as a noting some adverse side effects after taking medication. Will stop Sinemet today. * Telephone Encounter - Jacki Dao LPN - 08/01/2020 2:23 PM EST Please advise * Telephone Encounter - Priti Mccoy OSA - 08/01/2020 1:25 PM EST Who is Requesting Test Results: Patient Primary Care Provider : Dr. Duarte Tests Results Requested : EMG, nerve conduction study Date of Test : 07/14/20 Location of Test: [facility] Ordering Provider: Dr. Chavez Callback Number: [phone] Huynh attempted to go over, but wasn't comfortable discussing results. Patient has been made aware that the turnaround time for test results are typically as follows: Laboratory results = within 2 days Pathology results (biopsy results/PAP) = 1-2 weeks Radiology results = within 1 week COVID testing = results are on average 7 days documented in this encounter Plan of Treatment Upcoming Encounters Date Type Specialty Care Team Description 08/15/2020 Office Visit Cardiology Kings Camargo MD [address] [place] [address] [phone] 08/18/2020 Office Visit Family Medicine Elias Duarte DO [address] [place] [address] [phone] 10/18/2020 Office Visit Neurology Tone Chavez DO [address] [facility] [address] [phone] Scheduled Orders Name Type Priority Associated Diagnoses Orde r Schedule VITAMIN B12 Lab Routine Hereditary and idiopathic peripheral neuropathy Numbness Paresthesia Expected: 08/15/2020 (Approximate), Expires: 09/12/2020 FOLIC ACID Lab Routine Hereditary and idiopathic peripheral neuropathy Numbness Paresthesia Expected: 08/15/2020 (Approximate), Expires: 09/12/2020 SERUM IMMUNOFIXATION Lab Routine Hereditary and idiopathic peripheral neuropathy Numbness Paresthesia Expected: 08/15/2020 (Approximate), Expires: 09/12/2020 VITAMIN B6, PLASMA Lab Routine Hereditary and idiopathic peripheral neuropathy Numbness Paresthesia Expected: 08/15/2020 (Approximate), Expires: 09/12/2020 VITAMIN B1, S/P Lab Routine Hereditary and idiopathic peripheral neuropathy Numbness Paresthesia Expected: 08/15/2020 (Approximate), Expires: 09/12/2020 HEMOGLOBIN A1C Lab Routine Other specified diabetes mellitus without complications (HCC) Hereditary and idiopathic peripheral neuropathy Numbness Paresthesia Expected: 08/15/2020 (Approximate), Expires: 09/12/2020 Health Maintenance Due Date Last Done Comments [...] as of this encounter Visit Diagnoses Diagnosis Hereditary and idiopathic peripheral neuropathy- Primary Unspecified hereditary and idiopathic peripheral neuropathy Numbness Disturbance of skin sensation Paresthesia Disturbance of skin sensation Other specified diabetes mellitus without complications (HCC) documented in this encounter Advance Directives Documents on File Type Date Recorded 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
--- OUTSIDE RECORDS SUMMARY | 2023-05-28 23:59 | External Medical Summary | Summary of Care ---
Author Name Unknown Organization [place] [address] Care Team Providers Care Tank Maker Wood Name Role Phone Elias Duarte DO Primary Care Provider [phone] Reason for Visit * Reason Comments eRx-Medication Refill Encounter Details Date Type Department Care Team Description 06/06/2020 Refill Cardiology, [facility] [address] [place] [address] Mine Camargo MD 132 [facility] [place] [address] [phone] Mixed dyslipidemia; PVC (premature ventricular contraction) Allergies No Known Active Allergiesdocumented as of this encounter (statuses as of 06/06/2020) Medications Medication Sig Dispensed Refills Start Date End Date Status ASPIRIN 325 MG PO TABS 1 tab at bedtime 0 Active LINZESS 290 MCG CapsuleIndications :Irritable bowel syndrome with constipation TAKE 1 CAPSULE BY MOUTH DAILY BEFORE BREAKFAST 30 Cap 5 11/24/2019 Active finasteride (PROSCAR) 5 MG TabletIndications: BPH with obstruction/lower urinary tract symptoms Take 1 Tab by mouth daily. 30 Tab 5 12/30/2019 Active tamsulosin (FLOMAX) 0.4 MG CapsuleIndications :BPH with obstruction/lower urinary tract symptoms TAKE 1 CAPSULE AT BEDTIME 30 Cap 5 03/30/2020 Active metoprolol succinate XL (TOPROL XL) 25 MG [id number]:Sy mptomatic PVCs Take 1 Tab by mouth daily. 90 Tab 3 03/30/2020 Active Carbidopa-Levodopa 25-100 MG Oral Tablet (SINEMET)Indicatio ns:Balance problem,Gait abnormality,Tremor ,Bradykinesia TAKE 1 TABLET 3 TIMES A DAY . 90 Tab 12 05/05/2020 Active DULoxetine HCl 30 MG Oral Capsule Delayed Release Particles (CYMBALTA)Indicati ons:Lumbar degenerative disc disease,Episode of recurrent major depressive disorder, unspecified depression episode severity (HCC) TAKE 1 CAPSULE BY MOUTH DAILY. DO NOT CUT, CRUSH OR CHEW. 90 Cap 1 05/09/2020 Active Pravastatin Sodium 20 MG Oral Tablet (PRAVACHOL)Indicat ions:Mixed dyslipidemia,PVC (premature ventricular contraction) TAKE 1 TALBET EACH NIGHT AT BEDTIME 90 Tab 3 06/06/2020 Active pravastatin (PRAVACHOL) 20 MG TabletIndications: Mixed dyslipidemia,PVC (premature ventricular contraction) TAKE 1 TALBET EACH NIGHT AT BEDTIME 90 Tab 3 12/29/2019 06/06/2020 Discontinued documented as of this encounter (statuses as of 06/06/2020) Active Problems Problem Noted Date Parkinson's disease [...] as of this encounter (statuses as of 06/06/2020) Resolved Problems Problem Noted Date Resolved Date [...] as of this encounter (statuses as of 06/06/2020) Immunizations Name Administration Dates Next Due DTaP [...] Telephone Encounter - Mine Camargo MD - 06/06/2020 12:02 PM EST Signed Prescriptions: Disp Refills Pravastatin Sodium 20 MG Oral Tablet (PRAV*90 Tab 3 Sig: TAKE 1 TALBET EACH NIGHT AT BEDTIME Authorizing Provider: MINE CAMARGO * Telephone Encounter - Doris Lopez RN - 06/06/2020 11:19 AM EST Pending Prescriptions: Disp Refills Pravastatin Sodium 20 MG Oral Tablet (PRA*90 Tab 3 Sig: TAKE 1 TALBET EACH NIGHT AT BEDTIME * Telephone Encounter - Doris Lopez RN - 06/06/2020 11:19 AM EST Pending Prescriptions: Disp Refills Pravastatin Sodium 20 MG Oral Tablet (PRA*90 Tab 3 Sig: TAKE 1 TALBET EACH NIGHT AT BEDTIME Last Office/Telemedicine Visit: 08/18/2019 Next Office Visit: 08/15/2020 Scheduled Provider(s): Mine Camargo MD If no future appointments scheduled, and last appointment is greater than a year ago, please schedule patient for a follow-up appointment Last date the medication was ordered: Pharmacy: [facility] [address] Is this request for a controlled substance?No Urine Drug Screen:No results found for this or any previous visit. Patient Phone Numbers Labs: Lab Results Component Value Date/Time CREAT 1.0 02/08/2020 10:15 AM POTASSIUM 4.7 02/08/2020 10:15 AM TSH 1.66 08/15/2017 08:12 AM LDLCALC 02/08/2020 10:15 AM Uninterpretable, recommend direct LDL cholesterol testing. ALT 20 02/08/2020 10:15 AM HGBA1C 5.4 08/15/2017 08:12 AM documented in this encounter Plan of Treatment Upcoming Encounters Date Type Specialty Care Team Description 06/08/2020 Office [facility] D[facility] [place] [id number] 08/15/2020 Office Visit Cardiology Mine Camargo MD [address] [place] [address] [phone] 08/18/2020 Office Visit Family Medicine Elias Duarte DO [address] [place] [address] [phone] 10/18/2020 Office Visit Neurology Tone Chavez DO [address] [facility] [address] [phone] Health Maintenance Due Date Last Done Comments [...] Documents on File Type Date Recorded Patient Pastrycook 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 Advanced Directive Advanced Directive Advanced Directive Advanced Directive
--- OUTSIDE RECORDS SUMMARY | 2023-05-28 23:59 | External Medical Summary | Summary of Care ---
Author Name Unknown Organization [place] [address] Care Team Providers Care Owner/Operator Name Role Phone Elias Duarte DO Primary Care Provider [phone] Reason for Visit * Reason Comments eRx-Medication Refill Encounter Details Date Type Department Care Team Description 07/11/2020 Refill Family Practice [facility] [address] [place] [address] Elias [facility] [address] [phone] Irritable bowel syndrome with constipation Allergies No Known Active Allergiesdocumented as of this encounter (statuses as of 07/14/2020) Medications Medication Sig Dispensed Refills Start Date End Date Status ASPIRIN 325 MG PO TABS 1 tab at bedtime 0 Active tamsulosin (FLOMAX) 0.4 MG CapsuleIndications :BPH with obstruction/lower urinary tract symptoms TAKE 1 CAPSULE AT BEDTIME 30 Cap 5 03/30/2020 Active metoprolol succinate XL (TOPROL XL) 25 MG [id number]:Sy mptomatic PVCs Take 1 Tab by mouth [...] 06/06/2020 Active Finasteride 5 MG Oral Tablet (PROSCAR)Indicatio ns:BPH with obstruction/lower urinary tract symptoms Take 1 Tab by mouth daily. 30 Tab 5 06/30/2020 Active Linzess 290 MCG Oral Capsule (linaCLOtide)Indic ations:Irritable bowel syndrome with constipation TAKE 1 CAPSULE BY MOUTH DAILY BEFORE BREAKFAST. 30 Cap 5 07/14/2020 Active LINZESS 290 MCG CapsuleIndications :Irritable bowel syndrome with constipation TAKE 1 CAPSULE BY MOUTH DAILY BEFORE BREAKFAST 30 Cap 5 11/24/2019 07/14/2020 Discontinued documented as of this encounter (statuses as of 07/14/2020) Active Problems Problem Noted Date Parkinson's disease [...] as of this encounter (statuses as of 07/14/2020) Resolved Problems Problem Noted Date Resolved Date [...] as of this encounter (statuses as of 07/14/2020) Immunizations Name Administration Dates Next Due DTaP [...] Telephone Encounter - Elias Duarte DO - 07/14/2020 10:37 AM EST Signed Prescriptions: Disp Refills Linzess 290 MCG Oral Capsule (linaCLOtide) 30 Cap 5 Sig: TAKE 1 CAPSULE BY MOUTH DAILY BEFORE BREAKFAST. Authorizing Provider: ELIAS DUARTE * Telephone Encounter - Julito Lee, [facility] - 07/14/2020 9:28 AM EST Pending Prescriptions: Disp Refills Linzess 290 MCG Oral Capsule [Pharmacy Med*30 Cap 5 Sig: TAKE 1 CAPSULE BY MOUTH DAILY BEFORE BREAKFAST * Telephone Encounter - Julito Lee, [facility] - 07/14/2020 9:28 AM EST Pending Prescriptions: Disp Refills Linzess 290 MCG Oral Capsule [Pharmacy Med*30 Cap 5 Sig: TAKE 1 CAPSULE BY MOUTH DAILY BEFORE BREAKFAST Last Office/Telemedicine Visit: No Previous Office/Telemedicine Visits Next Office Visit: No Future Appointments If no future appointments scheduled, and last appointment is greater than a year ago, please schedule patient for a follow-up appointment Last date the medication was ordered: 11/24/19 [facility] [address] Is this request for a controlled [...] Encounters Date Type Specialty Care Team Description 07/14/2020 NeuroDiagnostic Study Neurophysiology Tone Chavez, DO [address] [place] [address] [phone] 07/27/2020 Office Visit Podiatry Vandana Huynh, DPBaron [address] [facility] [place] [address] [phone] 08/15/2020 Office Visit Cardiology Kings Camargo MD 132 [facility] [place] [address] [phone] 08/18/2020 Office Visit Family Medicine Elias Duarte DO [address] [place] [address] [phone] 10/18/2020 Office Visit Neurology Tone Chavez, DO [address] [place], [place] [address] [phone] Health Maintenance Due Date Last Done Comments [...] as of this encounter Visit Diagnoses Diagnosis Irritable bowel syndrome with constipation Irritable bowel syndrome documented in this encounter Advance Directives Documents on File Type Date Recorded 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
--- OUTSIDE RECORDS SUMMARY | 2023-05-28 23:59 | External Medical Summary | Summary of Care ---
Author Name Unknown Organization [place] [address] Care Team Providers Care Harpoon Engagement Planning Operator Name Role Phone Felicia Elias Primary Care Provider Reason for Visit * Reason Comments NEW PATIENT * Evaluate & Treat - Unlimited Visits (Within 30 days (routine)) Status Reason Specialty Diagnoses / Procedures Referred By Contact Referred To Contact Pending Review Specialty Services Required Podiatry Diagnoses Plantar fasciitis Tone Chavez DO [address] [place] [address] Encounter Details Date Type Department Care Team Description 06/08/2020 Office Visit Podiatry [facility] [address] [place] [address] Vandana Huynh, [facility] [address] [place] [address] Pain in both feet*; Foot swelling; Parkinson's disease (HCC); Lumbar degenerative disc disease Allergies No Known Active Allergiesdocumented as of this encounter (statuses as of 06/10/2020) Medications Medication Sig Dispensed Refills Start Date End Date Status ASPIRIN 325 MG PO TABS 1 tab at bedtime 0 Active LINZESS 290 MCG CapsuleIndications:Irr itable bowel syndrome with constipation TAKE 1 CAPSULE BY MOUTH DAILY BEFORE BREAKFAST 30 Cap 5 11/24/2019 Active finasteride (PROSCAR) 5 MG TabletIndications:BPH with obstruction/lower urinary tract symptoms Take 1 Tab by mouth daily. 30 Tab 5 12/30/2019 Active tamsulosin (FLOMAX) 0.4 MG CapsuleIndications:BPH with obstruction/lower urinary tract symptoms TAKE 1 CAPSULE AT BEDTIME 30 Cap 5 03/30/2020 Active metoprolol succinate XL (TOPROL XL) 25 MG [id number]:Sympto matic PVCs Take 1 Tab by mouth [...] Active Pravastatin Sodium 20 MG Oral Tablet (PRAVACHOL)Indications :Mixed dyslipidemia,PVC (premature ventricular contraction) TAKE 1 TALBET EACH NIGHT AT BEDTIME 90 Tab 3 06/06/2020 Active documented as of this encounter (statuses as of 06/10/2020) Active Problems Problem Noted Date Parkinson's disease [...] as of this encounter (statuses as of 06/10/2020) Resolved Problems Problem Noted Date Resolved Date [...] as of this encounter (statuses as of 06/10/2020) Immunizations Name Administration Dates Next Due DTaP [...] Sign Reading Time Taken Comments Blood Pressure - - Pulse - - Temperature 36.3 C (97.4 F) 06/08/2020 2:18 PM ES T Respiratory Rate - - Oxygen Saturation - - Inhaled Oxygen Concentration - - Weight - - Height - - Body Mass Index - - documented in this encounter Progress Notes * Vandana Huynh, DPM - 06/08/2020 2:59 PM EST Podiatry New Patient Note [facility] Name: Jacques Alicea : 1950 Date: 06/08/2020 CHIEF COMPLAINT: multiple complaints, main complaint is edema, but also reports chronic pain and difficulty with feet REFERRING: Tone Chavez DO HISTORY OF PRESENT ILLNESS: This patient is a 70 year old male who presents today with complaints of edema to both feet/legs. He states that this has been on going for several months. He states his primary care doctor sent him here for this issue. He is unaware of cardiac/renal issues. He has chronic issues to legs and what seems to be more neurological. As far as his edema, both legs are similar. He has been wearing compression socks which he has on today. These do help some. He brings a typed list of his medical history and symptoms. This is dated Jul 2018 and he has some hand written updates. I will request nurse scan this into his chart. He reports seeing 5 podiatristsin 14 years. He recalls having open plantar fasciotomies years ago. He feels his pain can start in his feet and at times can travel to his shoulders. He does not rate this pain on a 1-10 scale. His pain is everywhere and no localized. One extremity is not worse than the other. He reports weakness, but is ambulating without assistive devices. He reports a history of L4 disc disease. As far as additional treatments - he reports trying custom inserts, exercise, wraps, braces, injections, shoes, soc ks, and wraps without much change in his symptoms. He had been on gabapentin, but is a little confused why he was prescribed this. He is no longer taking this medication. He takes cymbalta, for this was prescribed for depression. He also lists/reports issues with his memory, light headedness, jitteriness, coldness. He was recently diagnosed with Parkinson's but feels confident all his symptoms were present prior to this diagnosis. Past Medical History: Diagnosis Date Benign neoplasm [...] performed by Dale Whitlock MD at ENDOSCOPY [facility] COLONOSCOPY, DIAGNOSTIC (RECTUM) 12/28/2015 adenomatous polyp, diverticulosis, repeat 3 yrs/COLONOSCOPY FLEXIBLE PROXIMAL DIAGNOSTIC performed by Enid John MD at ENDOSCOPY [facility] COLONOSCOPY, DIAGNOSTIC (RECTUM) 03/08/2020 adenomatous polyps, diverticulosis, repeat 1 yr / COLONOSCOPY FLEXIBLE PROXIMAL DIAGNOSTIC performed by Enid John MD at ENDOSCOPY [facility] COLONOSCOPY/REMOVE LESION 04/27/2010 2 polyps tubulovillous adenomas--repeat in 6 months INFORMATION right foot surgery for plantar fascitis REMOVE TONSILS & ADENOIDS, UNDER 12 Family History Problem Relation Age of Onset Neurological Disorder Mother dementia No Past Hx Father NO HEALTH HISTORY Diabetes Sister dx in 20's Hypertension Sister Social History Socioeconomic History Marital status: Spouse name: Not on file Number of children: Not on file Years of education: Not on file Highest education level: Not on file Occupational History Comment: retired Social Needs Financial resource strain: Not on file Food insecurity Worry: Never true Inability: Never true Transportation needs Medical: Not on file Non-medical: Not on file Tobacco Use Smoking status: Former Smoker Packs/day: 1.00 Years: 12.00 Pack years: 12.00 Types: Cigarettes Quit date: 07/22/1974 Years since quittin.9 Smokeless tobacco: Never Used Substance and Sexual Activity Alcohol use: No Drug use: No Sexual activity: Never Comment: 3 children Lifestyle Physical activity Days per week: Not on file Minutes per session: Not on file Stress: Not on file Relationships Social connections Talks on phone: Not on file Gets together: Not on file Attends sikh service: Not on file Active member of club or organization: Not on file Attends meetings of clubs or organizations: Not on file Relationship status: Not on file Intimate partner violence Fear of current or ex partner: Not on file Emotionally abused: Not on file Physically abused: Not on file Forced sexual activity: Not on file Other Topics Concern Not on file Social History Narrative Not on file Vaping/E-Cigarette Use Vaping/E-Cigarette Use Never User Vaping/E-Cigarette Substances Vaping/E-Cigarette Devices Current Outpatient Medications Medication Sig Dispense Refill Pravastatin Sodium 20 MG Oral Tablet (PRAVACHOL) TAKE 1 TALBET EACH NIGHT AT BEDTIME 90 Tab 3 DULoxetine HCl 30 MG Oral Capsule Delayed Release Particles (CYMBALTA) TAKE 1 CAPSULE BY MOUTH DAILY. DO NOT CUT, CRUSH OR CHEW. 90 Cap 1 Carbidopa-Levodopa 25-100 MG Oral Tablet (SINEMET) TAKE 1 TABLET 3 TIMES A DAY . 90 Tab 12 metoprolol succinate XL (TOPROL XL) 25 MG TB24 Take 1 Tab by mouth daily. 90 Tab 3 tamsulosin (FLOMAX) 0.4 MG Capsule TAKE 1 CAPSULE AT BEDTIME 30 Cap 5 finasteride (PROSCAR) 5 MG Tablet Take 1 Tab by mouth daily. 30 Tab 5 LINZESS 290 MCG Capsule TAKE 1 CAPSULE BY MOUTH DAILY BEFORE BREAKFAST 30 Cap 5 ASPIRIN 325 MG PO TABS 1 tab at bedtime ALLERGIES: Review of patient's allergies indicates: No Known Allergies REVIEW OF SYSTEMS: CONSTITUTIONAL: Positive for chronic generalized weakness, not acute. PULMONARY: No cough, sputum, or hemoptysis, No shortness of breath and No recent change in breathing CARDIOVASCULAR: No chest pain, No shortness of breath EXTREMITIES: Positive for pain in feet, ankles, legs, back SKIN/INTEGUMENTARY: No rash, No itching and Positive for edema lower legs FOCUSED PODIATRIC EXAM: Vitals: Filed Vitals: 06/08/20 1418 Temp: 36.3 C (97.4 F) General: Pleasant and cooperative. No apparent distress. Vascular: Pedal pulses palpable including dorsalis pedis and posterior tibial artery at 2/4 bilaterally. Capillary refill time is within normal limits to all toes. +1 pitting edema to the lower legs. No warmth. Pedal hair growth diminished. Neurologic: Sensation (light touch) intact to the bilateral lower extremities. No hypersensitivity. No weakness. No tremor. Patient is able to detect 9/10 left (left dorsal foot) and 10/10 right with 5.07 SemmesWeinstein Monofilament. Vibratory sensation is intact bilaterally. Musculoskeletal: Manual muscle strength is 4/5 to all compartments of the bilateral lower extremities. There is no localized pain on exam. Patient reports pain in legs, feet. Upon weight bearing, he is able to perform a double heel rise. No significant deformities. Dermatological: Skin temperature, texture, and turgor are within normal limits. No open lesions. There is no erythema or ecchymosis noted. DIAGNOSTIC STUDIES: Results XR FOOT 3 OR MORE VIEWS [XRFOOT3] (Spec. #[id number]) (Order [id number]) Exam End Date Exam End Time 06/08/2020 2:43 PM 06/08/2020 4:38 PM - Interface, Rad In Narrative & Impression EXAM XR FOOT 3 OR MORE VIEWS-06/08/2020 2:43 pm HISTORY pain, swelling COMPARISON None TECHNIQUE 1. Three views of the right foot. 2. Three views of the left foot. 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 There is no radiographically apparent fracture. There is no dislocation. The joints are intact. Left: Mild osteoarthritis of the 1st metatarsophalangeal joint. There is no radiographically apparent fracture. There is no dislocation. The joints are intact. Accessory navicular bone. Os trigonum. There is plantar calcaneal spurring. IMPRESSION IMPRESSION As above. PACS Images Show images for XR FOOT 3 OR MORE VIEWS PACS Images - Remote and MAC Users Show Images Result Information Date and Time: Resulted: 06/08/2020 4:36 PM Status: Final result Provider Status: Reviewed Signed by Resident (Preliminary Read) Staff Radiologist (Final Read) Date Time Phone Pager MAURICIO DE LA TORRE 06/08/2020 16:36 Read by Resident Staff Radiologist (Final Read) Date Phone Pager MAURICIO DE LA TORRE 06/08/2020 Results XR FOOT 3 OR MORE VIEWS - 06/08/2020 Result History Previous Results All Reviewers List Vandana Huynh DPM on 06/09/2020 7:01 AM Order Providers Authorizing Provider Encounter Provider ([id number]) Vandana Huynh DPM ([id number]) Vandana Huynh DPM ASSESSMENT: 1. Pain in both feet 2. Foot swelling 3. Parkinson's disease (HCC) 4. Lumbar degenerative disc disease PLAN: -Xrays of both feet taken and reviewed with the patient. -Given his symptoms as well as past treatments, I question if this is not a systemic issue or partly from his lower lumbar. -EMGs ordered. -Also recommended compression stockings. Rx given. Follow up: after EMG Vandana Huynh DPM documented in this encounter Plan of Treatment Upcoming Encounters Date Type Specialty Care Team Description 07/14/2020 NeuroDiagnostic Study Neurophysiology Tone Chavez, DO [address] [place] [address] [phone] 07/27/2020 Office Visit Podiatry Vandana Huynh DPM [address] [facility] [place] [id number] 08/15/2020 Office Visit Cardiology Kings Camargo MD [address] [place] [address] [phone] 08/18/2020 Office Visit Family Medicine Elias Duarte DO [address] [place] [address] [phone] 10/18/2020 Office Visit Neurology Tone Chavez, DO [address] [place] [address] [phone] Health Maintenance Due Date Last Done Comments [...] Procedure Name Priority Date/Time Associated Diagnosis Comments XR FOOT 3 OR MORE VIEWS Routine 06/08/2020 2:43 PM EST Pain in both feet Foot swelling documented in this encounter Results * XR FOOT 3 OR MORE VIEWS (06/08/2020 2:43 PM EST) Specimen Impressions Performed At IMPRESSION As above. [facility] Narrative Performed At EXAM XR FOOT 3 OR MORE VIEWS-06/08/2020 2:43 pm HISTORY pain, swelling COMPARISON None TECHNIQUE 1. Three views of the right foot. 2. Three views of the left foot. 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 There is no radiographically apparent fracture. There is no dislocation. The joints are intact. Left: Mild osteoarthritis of the 1st metatarsophalangeal joint. There is no radiographically apparent fracture. There is no dislocation. The joints are intact. Accessory navicular bone. Os trigonum. There is plantar calcaneal spurring. [facility] Procedure Note Interface, Rad In - 06/08/2020 4:38 PM EST EXAM XR FOOT 3 OR MORE VIEWS-06/08/2020 2:43 pm HISTORY pain, swelling COMPARISON None TECHNIQUE 1. Three views of the right foot. 2. Three views of the left foot. 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 There is no radiographically apparent fracture. There is no dislocation.The joints are intact. Left: Mild osteoarthritis of the 1st metatarsophalangeal joint. There is no radiographically apparent fracture. There is no dislocation.The joints are intact. Accessory navicular bone. Os trigonum. There is plantar calcanealspurring. IMPRESSION IMPRESSION As above. [facility] documented in this encounter Visit Diagnoses Diagnosis Pain in both feet- Primary Pain in limb Foot swelling Swelling of limb Parkinson's disease (HCC) Paralysis agitans Lumbar degenerative disc disease Degeneration of lumbar or lumbosacral intervertebral disc documented in this encounter Advance Directives Documents on File Type Date Recorded Patient Search Specialist 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 Advanced Directive Advanced Directive Advanced Directive Advanced Directive Advanced Directive Advanced Directive Advanced Directive
--- OUTSIDE RECORDS SUMMARY | 2023-05-28 23:59 | External Medical Summary | Summary of Care ---
Author Name Unknown Organization [place] [address] Care Team Providers [facility] Pricing Consultant Name Role Phone Felicia Elias PANDA Primary Care Provider Reason for Visit * Reason Comments eRx-Medication Refill Encounter Details Date Type Department Care Team Description 03/29/[address] [facility] [address] [place] [address] Tone Chavez [address] [place], [place] [id number] Paresthesia; Tremor Allergies No Known Allergiesdocumented as of this encounter (statuses as of 03/30/2020) Medications Medication Sig Dispensed Refills Start Date End Date Status ASPIRIN 325 MG PO TABS 1 tab at bedtime 0 Active metoprolol succinate XL (TOPROL XL) 25 MG [id number]:Sy mptomatic PVCs Take 1 Tab by mouth daily. 90 Tab 3 03/26/2019 Active tamsulosin (FLOMAX) 0.4 MG CapsuleIndications :BPH with obstruction/lower urinary tract symptoms Take 1 tablet at bedtime 30 Cap 5 06/10/2019 Active zoster vac recomb adjuvanted (SHINGRIX) 50 MCG/0.5ML injectionIndicatio ns:Need for vaccination for zoster Inject 0.5 mL into a large muscle now and repeat dose in 60 to 180 days 1 Each 1 08/04/2019 Active LINZESS 290 MCG CapsuleIndications :Irritable bowel syndrome with constipation TAKE 1 CAPSULE BY MOUTH DAILY BEFORE BREAKFAST 30 Cap 5 11/24/2019 Active pravastatin (PRAVACHOL) 20 MG TabletIndications: Mixed dyslipidemia,PVC (premature ventricular contraction) TAKE 1 TALBET EACH NIGHT AT BEDTIME 90 Tab 3 12/29/2019 Active finasteride (PROSCAR) 5 MG TabletIndications: BPH with obstruction/lower urinary tract symptoms Take 1 Tab by mouth daily. 30 Tab 5 12/30/2019 Active DULoxetine (CYMBALTA) 30 MG CPEPIndications:Karla mbar degenerative disc disease,Episode of recurrent major depressive disorder, unspecified depression episode severity (HCC) TAKE 1 CAPSULE BY MOUTH DAILY. DO NOT CUT, CRUSH OR CHEW 90 Cap 0 01/26/2020 Active aspirin enteric coated (ASPIRIN 81) 81 MG TBEC Take 81 mg by mouth 2 times a day. 0 Active gabapentin (NEURONTIN) 100 MG CapsuleIndications :Paresthesia,Tremo r TAKE ONE CAPSULE BY MOUTH 3 TIMES DAILY 90 Cap 0 03/30/2020 Active gabapentin (NEURONTIN) 100 MG CapsuleIndications :Paresthesia,Tremo r Take 1 Cap by mouth 3 times a day. 90 Cap 0 01/15/2020 03/30/2020 Discontinued documented as of this encounter (statuses as of 03/30/2020) Active Problems Problem Noted Date Parkinson's disease [...] as of this encounter (statuses as of 03/30/2020) Resolved Problems Problem Noted Date Resolved Date [...] as of this encounter (statuses as of 03/30/2020) Immunizations Name Administration Dates Next Due DTaP [...] file Not on file Not on file Travel History Travel Start Travel End No recent travel history emmanuel ilable. COVID-19 Exposure Response Date Recorded In the last month, have you been in contact with someone who was confirmed or suspected to have Coronavirus / COVID-19? No / Unsure 03/08/2020 6:57 AM EDT documented as of this encounter Miscellaneous Notes * Telephone Encounter - Tone Chavez DO - 03/30/2020 11:44 AM EDT Signed Prescriptions: Disp Refills gabapentin (NEURONTIN) 100 MG Capsule 90 Cap 0 Sig: TAKE ONE CAPSULE BY MOUTH 3 TIMES DAILY Authorizing Provider: TONE CHAVEZ * Telephone Encounter - Eleni Junior LPN - 03/30/2020 11:15 AM EDT Pending Prescriptions: Disp Refills gabapentin (NEURONTIN) 100 MG Capsule [Ph*90 Cap 0 Sig: TAKE ONE CAPSULE BY MOUTH 3 TIMES DAILY * Telephone Encounter - Stephanie Mario child support investigator - 03/30/2020 9:51 AM EDT Pending Prescriptions: Disp Refills gabapentin (NEURONTIN) 100 MG Capsule [Ph*90 Cap 0 Sig: TAKE ONE CAPSULE BY MOUTH 3 TIMES DAILY * Telephone Encounter - Stephanie Mario child support investigator - 03/30/2020 9:51 AM EDT Pending Prescriptions: Disp Refills gabapentin (NEURONTIN) 100 MG Capsule [Ph*90 Cap 0 Sig: TAKE ONE CAPSULE BY MOUTH 3 TIMES DAILY Last Office/Telemedicine Visit: 01/15/2020 Next Office Visit: 04/19/2020 Scheduled Provider(s): Tone Chavez, If no future appointments scheduled, and last appointment is greater than a year ago, please schedule patient for a follow-up appointment Last date the medication was ordered: 01/15/20 Pharmacy: Geni MURRAY @[facility] [address] Is this request for [...] Encounters Date Type Specialty Care Team Description 04/19/2020 Office Visit Neurology Tone Chavez DO 200 [facility] [place] [address] [phone] 05/16/2020 Office Visit Family Medicine Elias Duarte DO [address] [place] [address] [phone] 08/15/2020 Office Visit Cardiology Kings Camargo MD [address] [address] [phone] Health Maintenance Due Date Last Done Comments [...] as of this encounter Visit Diagnoses Diagnosis Paresthesia Disturbance of skin sensation Tremor Abnormal involuntary movements documented in this encounter Advance Directives Documents on File Type Date Recorded 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
--- OUTSIDE RECORDS SUMMARY | 2023-05-28 23:59 | External Medical Summary | Summary of Care ---
Author Name Unknown Organization [place] [address] Care Team Providers Care Anthropology Faculty Member Name Role Phone Elias Duarte DO Primary Care Provider Reason for Visit * Reason Onset Date Comments Medication Refill 06/30/2020 Encounter Details Date Type Department Care Team Description 06/30/2020 Refill Family Practice [facility] [address] [facility] [address] [facility] DO [facility] [address] [phone] BPH with obstruction/lower urinary tract symptoms Allergies No Known Active Allergiesdocumented as of this encounter (statuses as of 06/30/2020) Medications Medication Sig Dispensed Refills Start Date End Date Status ASPIRIN 325 MG PO TABS 1 tab at bedtime 0 Active LINZESS 290 MCG CapsuleIndications: Irritable bowel syndrome with constipation TAKE 1 CAPSULE BY MOUTH DAILY BEFORE BREAKFAST 30 Cap 5 11/24/2019 Active tamsulosin (FLOMAX) 0.4 MG CapsuleIndications: BPH with obstruction/lower urinary tract symptoms TAKE 1 CAPSULE AT BEDTIME 30 Cap 5 03/30/2020 Active metoprolol succinate XL (TOPROL XL) 25 MG [id number]:Sym ptomatic PVCs Take 1 Tab by mouth [...] mouth daily. 30 Tab 5 06/30/2020 Active finasteride (PROSCAR) 5 MG TabletIndications:B PH with obstruction/lower urinary tract symptoms Take 1 Tab by mouth daily. 30 Tab 5 12/30/2019 06/30/2020 Discontinued (Refill) documented as of this encounter (statuses as of 06/30/2020) Active Problems Problem Noted Date Parkinson's disease [...] as of this encounter (statuses as of 06/30/2020) Resolved Problems Problem Noted Date Resolved Date [...] as of this encounter (statuses as of 06/30/2020) Immunizations Name Administration Dates Next Due DTaP [...] Telephone Encounter - Elias Duarte DO - 06/30/2020 8:24 PM EST Signed Prescriptions: Disp Refills Finasteride 5 MG Oral Tablet (PROSCAR) 30 Tab 5 Sig: Take 1 Tab by mouth daily. Authorizing Provider: ELIAS DUARTE * Telephone Encounter - Ita Whittaker OSA - 06/30/2020 10:16 AM EST Pending Prescriptions: Disp Refills Finasteride 5 MG Oral Tablet (PROSCAR) 30 Tab 5 Sig: Take 1 Tab by mouth daily. Last Office/Telemedicine Visit: 05/16/2020 Next Office Visit: 08/18/2020 Scheduled Provider(s): Elias Duarte DO Last date the medication was ordered: 12/30/19 Patient Active Problem List Diagnosis Code Mixed [...] Team Description 07/14/2020 NeuroDiagnostic Study Neurophysiology Tone Chavez DO 200 [place] [address] [phone] 07/27/2020 Office Visit Podiatry V[facility]ana [facility] [address] [facility] [address] 08/15/2020 Office Visit Cardiology Kings Camargo MD [address] [address] [phone] 08/18/2020 Office Visit Family Medicine Elias Duarte DO [address] [place] [address] [phone] 10/18/2020 Office Visit Neurology Tone Chavez, DO [address] [place] [address] [phone] Health Maintenance Due Date Last Done Comments [...] Documents on File Type Date Recorded 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
--- OUTSIDE RECORDS SUMMARY | 2023-05-28 23:59 | External Medical Summary | Summary of Care ---
Author Name Unknown Organization [place] [address] Care Team Providers Care Impregnator And Drier Name Role Phone Elias Duarte DO Primary Care Provider [phone] Reason for Visit * Reason Comments eRx-Medication Refill Encounter Details Date Type Department Care Team Description 07/18/2020 Refill Family Practice [facility] 200 [place] [address] [facility]as [facility] DO [facility] [address] [phone] Irritable bowel syndrome with constipation Allergies No Known Active Allergiesdocumented as of this encounter (statuses as of 07/19/2020) Medications Medication Sig Dispensed Refills Start Date End Date Status ASPIRIN 325 MG PO TABS 1 tab at bedtime 0 Active tamsulosin (FLOMAX) 0.4 MG CapsuleIndications: BPH with obstruction/lower urinary tract symptoms TAKE 1 CAPSULE AT BEDTIME 30 Cap 5 03/30/2020 Active metoprolol succinate XL (TOPROL XL) 25 MG [id number]:Sym ptomatic PVCs Take 1 Tab by mouth [...] BEFORE BREAKFAST. 30 Cap 5 07/19/2020 Active Linzess 290 MCG Oral Capsule (linaCLOtide)Indica tions:Irritable bowel syndrome with constipation TAKE 1 CAPSULE BY MOUTH DAILY BEFORE BREAKFAST. 30 Cap 5 07/14/2020 07/19/2020 Discontinued documented as of this encounter (statuses as of 07/19/2020) Active Problems Problem Noted Date Parkinson's disease [...] as of this encounter (statuses as of 07/19/2020) Resolved Problems Problem Noted Date Resolved Date [...] as of this encounter (statuses as of 07/19/2020) Immunizations Name Administration Dates Next Due DTaP [...] Telephone Encounter - Elias Duarte DO - 07/19/2020 3:14 PM EST Signed Prescriptions: Disp Refills Linzess 290 MCG Oral Capsule (linaCLOtide) 30 Cap 5 Sig: TAKE 1 CAPSULE BY MOUTH DAILY BEFORE BREAKFAST. Authorizing Provider: ELIAS DUARTE * Telephone Encounter - Ansley Dyson [facility] - 07/19/2020 3:11 PM EST Pending Prescriptions: Disp Refills Linzess 290 MCG Oral Capsule [Pharmacy Med*30 Cap 5 Sig: TAKE 1 CAPSULE BY MOUTH DAILY BEFORE BREAKFAST. * Telephone Encounter - Ansley Dyson [facility] - 07/19/2020 3:11 PM EST Refill pharmacists currently not authorized to approve refills for this class of medication per refill protocol. Please approve if appropriate. Thanks, Ansley Dyson, BryceD, MS Clinical Pharmacist Telepharmacy 07/19/2020 3:11 PM documented in this encounter Plan of Treatment Upcoming Encounters Date Type Specialty Care Team Description 07/27/2020 Office Visit Podiatry Vandana Huynh, DPBaron 400 [facility] [place] [id number] 08/15/2020 Office Visit Cardiology Kings Camargo MD [address] [address] [phone] 08/18/2020 Office Visit Family Medicine Elias Duarte DO [address] [address] [phone] 10/18/2020 Office Visit Neurology Tone Chavez DO 200 [facility] [place] [address] [phone] Health Maintenance Due Date Last Done Comments [...] Documents on File Type Date Recorded Patient Data Analytics Chief Scientist 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 Advanced Directive Advanced Directive Advanced Directive Advanced Directive Advanced Directive Advanced Directive Advanced Directive
--- OUTSIDE RECORDS SUMMARY | 2023-05-28 23:59 | External Medical Summary | Summary of Care ---
Author Name Unknown Organization [place] [address] Care Team Providers Care Representative Phlebotomy Services Name Role Phone Elias Duarte DO Primary Care Provider [phone] Reason for Visit * Reason Comments eRx-Medication Refill Encounter Details Date Type Department Care Team Description 03/29/2020 Refill Family Practice [facility] [address] [facility] [place] [address] Elias Duarte DO 132 [facility] [place] [address] [phone] BPH with obstruction/lower urinary tract symptoms Allergies No Known Allergiesdocumented as of this [...] mouth 2 times a day. 0 Active tamsulosin (FLOMAX) 0.4 MG CapsuleIndications :BPH with obstruction/lower urinary tract symptoms TAKE 1 CAPSULE AT BEDTIME 30 Cap 5 03/30/2020 Active gabapentin (NEURONTIN) 100 MG CapsuleIndications :Paresthesia,Tremo r TAKE ONE CAPSULE BY MOUTH 3 TIMES DAILY 90 Cap 0 03/30/2020 Active tamsulosin (FLOMAX) 0.4 MG CapsuleIndications :BPH with obstruction/lower urinary tract symptoms Take 1 tablet at bedtime 30 Cap 5 06/10/2019 03/30/2020 Discontinued documented as of this encounter [...] Miscellaneous Notes * Telephone Encounter - Elias Duaret DO - 03/30/2020 3:50 PM EDT Signed Prescriptions: Disp Refills tamsulosin (FLOMAX) 0.4 MG Capsule 30 Cap 5 Sig: TAKE 1 CAPSULE AT BEDTIME Authorizing Provider: ELIAS DUARTE * Telephone Encounter - Gustabo Rodarte, [facility] - 03/30/2020 3:33 PM EDT Pending Prescriptions: Disp Refills tamsulosin (FLOMAX) 0.4 MG Capsule [Pharma*30 Cap 5 Sig: TAKE 1 CAPSULE AT BEDTIME * Telephone Encounter - Gustabo Rodarte, [facility] - 03/30/2020 3:33 PM EDT Refill pharmacists currently not authorized to approve refills for this class of medication per refill protocol. Please approve if appropriate. Thanks, Gustabo Rodarte, R.Ph. Clinical Pharmacist [facility] [phone] 03/30/2020,3:33 PM Pending Prescriptions: Disp Refills tamsulosin (FLOMAX) 0.4 MG Capsule [Pharma*30 Cap 5 Sig: TAKE 1 CAPSULE AT BEDTIME Last Office/Telemedicine Visit: 02/08/2020 Next Office Visit: 05/16/2020 Scheduled Provider(s): Elias Duarte DO If no future appointments scheduled, and last appointment is greater than a year ago, please schedule patient for a follow-up appointment Last date the medication was ordered: 06/10/19 Pharmacy: Geni MURRAY @[facility] [address] Is this request for a controlled [...] Team Description 04/19/2020 Office Visit Neurology Tone Chavez, 200 [facility] [place] [address] [phone] 05/16/2020 Office Visit Family Medicine Elias Duarte DO [address] [place] [address] [phone] 08/15/2020 Office Visit Cardiology Kings Camargo MD [address] [place] [address] [phone] Health Maintenance Due Date Last Done Comments [...] Documents on File Type Date Recorded Patient Hotel Operations 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
--- OUTSIDE RECORDS SUMMARY | 2023-05-28 23:59 | External Medical Summary | Summary of Care ---
Author Name Unknown Organization [facility] Address [facility] [place] [address] Care Team Providers Care Monitoring Coordinator Name Role Phone Elias Duarte DO Primary Care Provider Reason for Visit * Reason Comments eRx-Medication Refill Encounter Details Date Type Department Care Team Description 05/06/2020 Refill Family Practice [facility] 132 [facility] [place] [address] Elias Duarte DO 132 [facility] [place] [address] [phone] Lumbar degenerative disc disease; Episode of recurrent major depressive disorder, unspecified depression episode severity (HCC) Allergies No Known Active Allergiesdocumented as of this encounter (statuses as of 05/09/2020) Medications Medication Sig Dispensed Refills Start Date [...] metoprolol succinate XL (TOPROL XL) 25 MG [id number]:Sy mptomatic PVCs Take 1 Tab by mouth [...] OR CHEW. 90 Cap 1 05/09/2020 Active DULoxetine (CYMBALTA) 30 MG CPEPIndications:Karla mbar degenerative disc disease,Episode of recurrent major depressive disorder, unspecified depression episode severity (HCC) TAKE 1 CAPSULE BY MOUTH DAILY. DO NOT CUT, CRUSH OR CHEW 90 Cap 0 01/26/2020 05/09/2020 Discontinued documented as of this encounter (statuses as of 05/09/2020) Active Problems Problem Noted Date Parkinson's disease [...] as of this encounter (statuses as of 05/09/2020) Resolved Problems Problem Noted Date Resolved Date [...] as of this encounter (statuses as of 05/09/2020) Immunizations Name Administration Dates Next Due DTaP [...] encounter Miscellaneous Notes * Telephone Encounter - Alexandrea Agustin [facility] - 05/09/2020 7:49 AM EDT Signed Prescriptions: Disp Refills DULoxetine HCl 30 MG Oral Capsule Delayed *90 Cap 1 Sig: TAKE 1 CAPSULE BY MOUTH DAILY. DO NOT CUT, CRUSH OR CHEW.Authorizing Provider: Kelsey DUARTE User: ALEXANDREA AGUSTIN Electronically signed by Alexandrea Agustin [facility] at 05/09/2020 7:49 AM EDT documented in this encounter Plan of Treatment Upcoming Encounters Date Type Specialty Care Team Description 05/16/2020 Office Visit Family Medicine Elias Duarte, [address] [place] [address] [phone] 06/08/2020 Office Visit Podiatry Vandana Huynh, DPM [address] [place] [address] 08/15/2020 Office Visit Cardiology Kings Camargo MD [address] [place] [address] [phone] 10/18/2020 Office Visit Neurology Tone Chavez DO [address] [place] [address] [phone] Health Maintenance Due Date Last Done Comments [...] Documents on File Type Date Recorded Patient Can Carrier 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 Advanced Directive Advanced Directive Advanced Directive
--- OUTSIDE RECORDS SUMMARY | 2023-05-28 23:59 | External Medical Summary | Summary of Care ---
Author Name Unknown Organization [place] [address] Care Team Providers Care Weaving Machine Operator Name Role Phone Elias Duarte DO Primary Care Provider Reason for Referral * Evaluate & Treat - Unlimited Visits (Within 30 days (routine)) Status Reason Specialty Diagnoses / Procedures Referred By Contact Referred To Contact Pending Review Specialty Services Required Podiatry Diagnoses Plantar fasciitis Tone Chavez DO [address] [place] [address] Reason for Visit * Reason Comments Return Neuro Parkinson's Disease Paresthesias Tremor Encounter Details Date Type Department Care Team Description 04/19/2020 Office Visit Neurology [facility] [address] [place] [address] Tone Chavez, [address] [place] [address] [phone] Plantar fasciitis*; Parkinson's disease (HCC) Allergies No Known Active Allergiesdocumented as of this encounter (statuses as of 04/19/2020) Medications Medication Sig Dispensed Refills Start Date [...] metoprolol succinate XL (TOPROL XL) 25 MG [id number]:Sympto matic PVCs Take 1 Tab by mouth daily. 90 Tab 3 03/30/2020 Active documented as of this encounter (statuses as of 04/19/2020) Active Problems Problem Noted Date Parkinson's disease [...] as of this encounter (statuses as of 04/19/2020) Resolved Problems Problem Noted Date Resolved Date [...] as of this encounter (statuses as of 04/19/2020) Immunizations Name Administration Dates Next Due DTaP [...] Sign Reading Time Taken Comments Blood Pressure 134/74 04/19/2020 9:49 AM EDT Pulse 82 04/19/2020 9:49 AM EDT Temperature 36.1 C (96.9 F) 04/19/2020 9:49 AM ED T Respiratory Rate 16 04/19/2020 9:49 AM EDT Oxygen Saturation - - Inhaled Oxygen Concentration - - Weight 81.3 kg (179 lb 4.8 oz) 04/19/2020 9:49 A M EDT Height - - Body Mass Index 28.08 03/08/2020 7:22 AM EDT documented in this encounter Progress Notes * Tone Chavez, DO - 04/19/2020 10:03 AM EDT Progress Note - Neurology [facility] [address] [place] [address] NAME: Jacques Alicea Date of : 1950 Date of Visit: 04/19/20 Chief Complaint: Chief Complaint Patient presents with Return Neuro Parkinson's Disease Paresthesias Tremor Subjective: A 70-year-old male with Parkinson's disease presenting to clinic for follow-up. Patientwas last seen by myself via telemedicine on January 15, 2020. He is taking immediate release Sinemet 25-100 3 times daily. Feels vibration in his chest which he does not think are heart palpations. His feet hurt. No falls. He has had several surgeries on his feet for plantar fasciitis. He is taking Sin emet 6 AM, 3 Pm, and bedtime. HOME MEDICATIONS : Current Outpatient Medications Medication Sig Dispense Refill gabapentin (NEURONTIN) 100 MG Capsule TAKE ONE CAPSULE BY MOUTH 3 TIMES DAILY 90 Cap 0 metoprolol succinate XL (TOPROL XL) 25 MG TB24 Take 1 Tab by mouth daily. 90 Tab 3 tamsulosin (FLOMAX) 0.4 MG Capsule TAKE 1 CAPSULE AT BEDTIME 30 Cap 5 aspirin enteric coated (ASPIRIN 81) 81 MG TBEC Take 81 mg by mouth daily. DULoxetine (CYMBALTA) 30 MG CPEP TAKE 1 [...] MOUTH DAILY BEFORE BREAKFAST 30 Cap 5 zoster vac recomb adjuvanted (SHINGRIX) 50 MCG/0.5ML injection Inject 0.5 mL into a large muscle now and repeat dose in 60 to 180 days 1 Each 1 ASPIRIN 325 MG PO TABS 1 tab at bedtime Review of patient's allergies indicates: No Known Allergies PHYSICAL EXAMINATION: Vital Signs: BP 134/74 | Pulse 82 | Temp 36.1 C (96.9 F) (Tympanic) | Resp 16 | Wt 81.3 kg (179 lb 4.8 oz) |BMI 28.08 kg/m | BSA 1.96 m EXAM: Constitutional: appearance normally developed, well nourished and non-obese Head and Face: normocephalic and atraumatic Eyes: normal lids, normal conjunctiva Neck: supple Respiratory: normal effort Cardiovascular: regular rhythm and normal pulses Abdomen: non distended Skin: no rashes, lesions, or ulcers noted Psychiatric: Flat affect NEUROLOGIC EXAMINATION: Appearance: no acute distress [...] facial sensation intact CN 7 - masked faces CN 8 - intact hearing CN 9, 10 - palate symmetric CN 11 - good shoulder shrug CN 12 - tongue midline Gait: Right pill rolling tremor with ambulation, shuffling gait, stooped posture Coordination: No postural tremor Sensory: intact to light touch Muscle Tone: Cogwheel rigidity, bradykinetic with rapid alternating movement Muscle exam: 11/23 throughout LABORATORY: Labs reviewed and pertinent findings are indicated below: Review of prior Diagnostic Tests: Review of prior Radiology Studies: IMPRESSION / PLAN: Jacques was seen today for return neuro, parkinson's disease, paresthesias and tremor. Diagnoses and all orders for this visit: Plantar fasciitis - PODIATRY REFERRAL OP Parkinson's disease (HCC) Mr. Alicea is a very pleasant 70-year-old male with idiopathic Parkinson's disease. Recommended he modify his Sinemet dosing to take upon awakening, then again around lunch time, and then again in theearly afternoon. As for his chronic foot pain which she has had previous surgery for plantar fasciitis the nerve gabapentin did not help therefore I encouraged him to stop this medication. On examination his foot is erythematous with some thickening of the toenails although sensation is intact to light touch. He is seeing a woman in [place] he was making him foot orthotics. He wishes to see podiatry in [place]. Otherwise he is remaining very active with no falls. He is walking 4 miles per day with his new dog. From a Parkinson's standpoint he appears to be doing very well. I will plan to see him back in 6 months or sooner if needed. Tone Chavez DO This was a 40 minute visit, with greater than 50% face to face counseling. Discussion was carried out with patient regarding testing, diagnostic possibilities and findings, treatment options, risk, and benefits. documented in this encounter Nursing Notes * Carmina London, MED ASSIST - 04/19/2020 9:47 AM EDT Chief Complaint Patient presents with Return Neuro Parkinson's Disease Paresthesias Tremor documented in this encounter Plan of Treatment Upcoming Encounters Date Type Specialty Care Team Description 05/16/2020 Office Visit Family Medicine Elias Duarte DO [address] [place] [address] [phone] 06/08/2020 Office Visit Podiatry Vandana Huynh DPM [address] [facility] [place] [id number] 08/15/2020 Office Visit Cardiology Kings Camargo MD [address] [place] [address] 10/18/2020 Office Visit Neurology Tone Chavez DO [address] [place] [address] [phone] Scheduled Referrals Name Type Priority Associated Diagnoses Orde r Schedule PODIATRY REFERRAL OP Referral Within 30 days (routine) Plantar fasciitis Ordered: 04/19/2020 Health Maintenance Due Date Last Done Comments [...] as of this encounter Visit Diagnoses Diagnosis Plantar fasciitis- Primary Plantar fascial fibromatosis Parkinson's disease (HCC) Paralysis agitans documented in this encounter Advance Directives Documents on File Type Date Recorded 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
--- OUTSIDE RECORDS SUMMARY | 2023-05-28 23:59 | External Medical Summary | Summary of Care ---
Author Name Unknown Organization [place] [address] Care Team Providers Care Builder Beam Name Role Phone FeliciaElias elizabeth Primary Care Provider Reason for Visit * Reason Comments EMG Encounter Details Date Type Department Care Team Description 07/14/2020 NeuroDiagnostic Study Neurophysiology [facility] [address] [facility] [place] [address] Tone Chavez DO [address] [facility] [address] [phone] Arrived Allergies No Known Active Allergiesdocumented as of this encounter (statuses as of 07/14/2020) Medications Medication Sig Dispensed Refills Start Date End Date Status ASPIRIN 325 MG PO TABS 1 tab at bedtime 0 Active tamsulosin (FLOMAX) 0.4 MG CapsuleIndications:BPH with obstruction/lower urinary tract symptoms TAKE 1 CAPSULE AT BEDTIME 30 Cap 5 03/30/2020 Active metoprolol succinate XL (TOPROL XL) 25 MG [id number]:Symptom atic PVCs Take 1 Tab by mouth [...] BEFORE BREAKFAST. 30 Cap 5 07/14/2020 Active documented as of this encounter (statuses [...] as of this encounter Progress Notes * Tone Chavez DO - 07/14/2020 12:48 PM EST [facility] Neurophysiology Laboratory Electromyography Report Name: Jacques Alicea Date of : 1950 (70 year old) Sex: male Referring Physician: Vandana Huynh DPM Examining Physician: Tone Chavez DO Examination Date: 07/14/2020 Ht Readings from Last 1 Encounters: 03/08/20 1.702 m (5' 7") Wt Readings from Last 1 Encounters: 05/16/20 80.7 kg (178 lb) Impression: Abnormal study. This electrodiagnostic study shows evidence of followin. 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 2. Chronic left L4-L5 radiculopathy with no active denervation. History and Physical examination: A 70-year-old male Parkinson's disease presenting to clinic for evaluation of bilateral foot pain and paresthesias. He complains of chronic low back pain that radiates down the left side. Sensation is intact to light touch. EMG/NCS performed for evaluation neuropathy. Nerve Conduction Studies Examination Findings: Nerve conduction studies were performed in the bilateral lower extremities and in select nerves in the low right upper extremity. The sural and superficial peroneal sensory nerve responses were absent. The radial sensory nerve study was normal. The bilateral peroneal motor nerve studies were normal. The left tibial motor nerve study was normal. The right tibial motor nerve study showed normal distal latency, mildly reduced amplitude, and normal conduction velocity. Please see the attached document for raw data or the scanned document in [employer]. Reference values are from the [facility] normative data guidelines that are attached at the end ofthis document. Electromyography Examination Findings: Needle examination was performed with a disposable concentric needle electrode in selected muscles of the bilateral lower extremities, as recorded in the tables. No abnormal spontaenous activity was seen. The left tibialis anterior, vastus medialis, and gluteus medius muscles demonstrated mildly tomoderately increased size and mild to moderately reduced recruitment. The motor unit action potentials in the other muscles tested demonstrated normal size, duration, and recruitment. Please see the attached document for raw data or the scanned document in [employer]. The study was done with a concentric needle examination. Tone Chavez DO documented in this encounter Nursing Notes * Jacki Dao LPN - 07/14/2020 11:55 AM EST Pt here for EMG of both legs. documented in this encounter Plan of Treatment Upcoming Encounters Date Type Specialty Care Team Description 07/27/2020 Office Visit Podiatry Vandana Huynh DPM [address] [place] [address] 08/15/2020 Office Visit Cardiology Kings Camargo MD [address] [facility] [place] [address] [phone] 08/18/2020 Office Visit Family Medicine Elias Duarte, DO [address] [place] [address] [phone] 10/18/2020 Office Visit Neurology Tone Chavez, DO [address] [place] [address] [phone] Scheduled Orders Name Type Priority Associated Diagnoses Orde r Schedule ELECTROMYOGRAPHY, NERVE, COMPLETE Procedures Routine Paresthesia Ordered: 07/14/2020 Health Maintenance Due Date Last Done Comments [...] Procedure Name Priority Date/Time Associated Diagnosis Comments NERVE CONDUCTION STUDIES, 9-10 STUDIES Routine 07/14/2020 Paresthesia documented in this encounter Results * NERVE CONDUCTION STUDIES, 9-10 STUDIES (07/14/2020) Impressions Performed At Abnormal study. This electrodiagnostic study shows evidence of followin. 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 2. Chronic left L4-L5 radiculopathy with no active denervation. Narrative Performed At [facility] Neurophysiology Laboratory Electromyography Report Name: Jacques Alicea Date of : 1950 (70 year old) Sex: male Referring Physician: Vandana Huynh DPM Examining Physician: Tone Chavez DO Examination Date: 07/14/2020 Ht Readings from Last 1 Encounters: 03/08/20 1.702 m (5' 7") Wt Readings from Last 1 Encounters: 05/16/20 80.7 kg (178 lb) History and Physical examination: A 70-year-old male Parkinson's disease presenting to clinic for evaluation of bilateral foot pain and paresthesias. He complains of chronic low back pain that radiates down the left side. Sensation is intact to light touch. EMG/NCS performed for evaluation neuropathy. Nerve Conduction Studies Examination Findings: Nerve conduction studies were performed in the bilateral lower extremities and in select nerves in the low right upper extremity. The sural and superficial peroneal sensory nerve responses were absent. The radial sensory nerve study was normal. The bilateral peroneal motor nerve studies were normal. The left tibial motor nerve study was normal. The right tibial motor nerve study showed normal distal latency, mildly reduced amplitude, and normal conduction velocity. Please see the attached document for raw data or the scanned document in [employer]. Reference values are from the [facility] normative data guidelines that are attached at the end of this document. Electromyography Examination Findings: Needle examination was performed with a disposable concentric needle electrode in selected muscles of the bilateral lower extremities, as recorded in the tables. No abnormal spontaenous activity was seen. The left tibialis anterior, vastus medialis, and gluteus medius muscles demonstrated mildly to moderately increased size and mild to moderately reduced recruitment. The motor unit action potentials in the other muscles tested demonstrated normal size, duration, and recruitment. Please see the attached document for raw data or the scanned document in [employer]. The study was done with a concentric needle examination. Tone Chavez DO documented in this encounter Visit Diagnoses Diagnosis Paresthesia- Primary Disturbance of skin sensation documented in this encounter Advance Directives Documents on File Type Date Recorded Patient Technical Staff Assistant 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 Advanced Directive Advanced Directive Advanced Directive Advanced Directive Advanced Directive Advanced Directive Advanced Directive
--- OUTSIDE RECORDS SUMMARY | 2023-05-28 23:59 | External Medical Summary | Summary of Care ---
Author Name Unknown Organization [place] [address] Care Team Providers Care Auditing Coder Name Role Phone Elias Duarte DO Primary Care Provider Reason for Visit * Reason Comments Medication Refill Encounter Details Date Type Department Care Team Description 03/30/2020 Refill [facility] [address] [facility] [place] [address] [facility] [address] [facility] [place] [address] [phone] Symptomatic PVCs Allergies No Known Allergiesdocumented as of this encounter (statuses as of 03/30/2020) Medications Medication Sig Dispensed Refills Start Date End Date Status ASPIRIN 325 MG PO TABS 1 tab at bedtime 0 Active tamsulosin (FLOMAX) 0.4 MG CapsuleIndications: BPH with obstruction/lower urinary tract symptoms Take [...] day. 0 Active gabapentin (NEURONTIN) 100 MG CapsuleIndications: Paresthesia,Tremor TAKE ONE CAPSULE BY MOUTH 3 TIMES DAILY 90 Cap 0 03/30/2020 Active metoprolol succinate XL (TOPROL XL) 25 MG [id number]:Sym ptomatic PVCs Take 1 Tab by mouth daily. 90 Tab 3 03/30/2020 Active metoprolol succinate XL (TOPROL XL) 25 MG [id number]:Sym ptomatic PVCs Take 1 Tab by mouth daily. 90 Tab 3 03/26/2019 03/30/2020 Discontinued (Refill) documented as of this encounter [...] Telephone Encounter - Elias Duarte DO - 03/30/2020 3:12 PM EDT Signed Prescriptions: Disp Refills metoprolol succinate XL (TOPROL XL) 25 MG *90 Tab 3 Sig: Take 1 Tab by mouth daily. Authorizing Provider: ELIAS DUARTE * Telephone Encounter - Israel Almonte OSA - 03/30/2020 1:50 PM EDT Pending Prescriptions: Disp Refills metoprolol succinate XL (TOPROL XL) 25 MG*90 Tab 3 Sig: Take 1 Tab by mouth daily. Last Office/Telemedicine Visit: 02/08/2020 Next Office Visit: 05/16/2020 Scheduled Provider(s): Elias Duarte DO If no future appointments scheduled, and last appointment is greater than a year ago, please schedule patient for a follow-up appointment Last date the medication was ordered: 02/25/2020 [facility] [place] Is this request for a [...] Office Visit Neurology Tone Chavez DO [address] [facility] [address] [phone] 05/16/2020 Office Visit Family Medicine Elias Duarte DO [address] [place] [address] [phone] 08/15/2020 Office Visit Cardiology Kings Camargo MD [address] [place] [address] [phone] Health Maintenance Due Date Last Done Comments [...] Documents on File Type Date Recorded Patient Heel Top Lift Splitter 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
--- OUTSIDE RECORDS SUMMARY | 2023-05-28 23:59 | External Medical Summary | Summary of Care ---
Author Name Unknown Organization [place] [address] Care Team Providers Care Commodity Director Name Role Phone Felicia Elias PANDA Primary Care Provider Reason for Visit * Reason Onset Date Comments Medication Problem 04/20/2020 Sinemet/Gabap entin Encounter Details Date Type Department Care Team Description 04/20/2020 Telephone Neurology [facility] [address] [place] [address] Tone Chavez [address] [place], [place] [id number] Medication Problem (Sinemet/Gabapentin) Allergies No Known Active Allergiesdocumented as of this encounter (statuses as of 04/20/2020) Medications Medication Sig Dispensed Refills Start Date [...] metoprolol succinate XL (TOPROL XL) 25 MG [id number]:Sympto matic PVCs Take 1 Tab by mouth daily. 90 Tab 3 03/30/2020 Active documented as of this encounter (statuses as of 04/20/2020) Active Problems Problem Noted Date Parkinson's disease [...] as of this encounter (statuses as of 04/20/2020) Resolved Problems Problem Noted Date Resolved Date [...] as of this encounter (statuses as of 04/20/2020) Immunizations Name Administration Dates Next Due DTaP [...] encounter Miscellaneous Notes * Telephone Encounter - Eleni Junior LPN - 04/20/2020 8:58 AM EDT Called pt and went over everything. Requesting letter with instructions. Address verified. And letter sent. * Telephone Encounter - Elizabeth Maher CPhT - 04/20/2020 8:18 AM EDT Scheduling calling regarding pt. Pt stating he had neurology visit yesterday and doctor told him tostop taking Cymbalta, he is not sure. After looking at patient visit encounter it states he should keep taking Sinemet and that was discontinued, and discontinue Gabapentin which is still active. Please advise pt with information about which meds he should currently be taking. Pt can be reached: [phone] Elizabeth Schumacher CPhT [facility] 04/20/2020,8:22 AM Sinemet/Gabapentin documented in this encounter Plan of Treatment Upcoming Encounters Date Type Specialty Care Team Description 05/16/2020 Office Visit Family Medicine Elias Duarte DO [address] [place] [address] [phone] 06/08/2020 Office Visit Podiat[facility] Vandana Huynh, [facility] [address] [facility] [place] [address] 08/15/2020 Office Visit Cardiology Kings Camargo MD [address] [place] [address] [phone] 10/18/2020 Office Visit Neurology Tone Chavez DO [address] [place] [address] [phone] Health Maintenance Due Date Last Done Comments [...] Documents on File Type Date Recorded 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
--- OUTSIDE RECORDS SUMMARY | 2023-05-29 | External Medical Summary ---
Author Name Unknown Address [address] [place] [address] Phone Organization [facility] [address] [facility] [place] [address] Laboratory Report Ordering Provider Test Date Status ALEJANDRA OROZCO 02/08/2020 10:15:00 Final Observation Date Value Abnormality Reference (Units ) Status BUN 02/08/2020 11:55 14 6-20 (mg/dL) Final Creatinine 02/08/2020 11:55 1.0 0.6-1.2 (mg/ dL) Final E Glom Filt Rate 02/08/2020 11:55 >60.0 >60 Final If patient is [place], multiply estimated GFR by 1.159. Sodium 02/08/2020 11:55 140 135-146 (mmol /L) Final Potassium 02/08/2020 11:55 4.7 3.5-5.1 (mmol /L) Final Cl 02/08/2020 11:55 102 98-107 (mmol/ L) Final CO2 02/08/2020 11:55 27 22-32 (mmol/L ) Final Anion gap 02/08/2020 11:55 11 7-15 (mmol/L) Final Glucose 02/08/2020 11:55 95 70-120 (mg/dL ) Final Calcium 02/08/2020 11:55 9.5 8.4-10.2 (mg/ dL) Final Performing Location [facility] [place] [facility] [address] [facility] [place] [address]
--- OUTSIDE RECORDS SUMMARY | 2023-05-29 | External Medical Summary | Summary of Care ---
Author Name Unknown Organization [facility] [place] [address] Care Team Providers Care Studio Technician Name Role Phone Elias Duarte DO Primary Care Provider Reason for Visit * Reason Comments Referral colon Encounter Details Date Type Department Care Team Description 02/08/[address] [facility] 132 [facility] [place] [address] Elias Duarte DO 132 [facility] [place] [address] [phone] Referral (colon) Allergies No Known Allergiesdocumented as of this encounter (statuses as of 02/09/2020) Medications Medication Sig Dispensed Refills Start Date End Date Status ASPIRIN 325 MG PO TABS 1 tab at bedtime 0 Active metoprolol succinate XL (TOPROL XL) 25 MG [id number]:Sympto matic PVCs Take 1 Tab by mouth daily. 90 Tab 3 03/26/2019 Active tamsulosin (FLOMAX) 0.4 MG CapsuleIndications:BPH with obstruction/lower urinary tract symptoms Take 1 [...] mouth daily. 30 Tab 5 12/30/2019 Active gabapentin (NEURONTIN) 100 MG CapsuleIndications:Par esthesia,Tremor Take 1 Cap by mouth 3 times a day. 90 Cap 0 01/15/2020 Active DULoxetine (CYMBALTA) 30 MG CPEPIndications:Lumbar degenerative disc disease,Episode of recurrent major depressive disorder, unspecified depression episode severity (HCC) TAKE 1 CAPSULE BY MOUTH DAILY. DO NOT CUT, CRUSH OR CHEW 90 Cap 0 01/26/2020 Active aspirin enteric coated (ASPIRIN 81) 81 MG TBEC Take 81 mg by mouth daily. 0 Active documented as of this encounter (statuses as of 02/09/2020) Active Problems Problem Noted Date Parkinson's disease [...] as of this encounter (statuses as of 02/09/2020) Resolved Problems Problem Noted Date Resolved Date [...] as of this encounter (statuses as of 02/09/2020) Immunizations Name Administration Dates Next Due DTaP [...] have Coronavirus / COVID-19? No / Unsure 02/08/2020 9:34 AM EDT documented as of this encounter Miscellaneous Notes * Telephone Encounter - Flora Antunez OSA - 02/09/2020 12:41 PM EDT Left message via cell to return call to get scheduled * Telephone Encounter - Sana Waterman OSA - 02/08/2020 10:51 AM EDT Colonoscopy-screening Pt needs to check to see when his son can drive him documented in this encounter Plan of Treatment Upcoming Encounters Date Type Specialty Care Team Description 04/19/2020 Office Visit Neurology Tone Chavez, DO 200 [facility] [place] [address] [phone] 05/16/2020 Office Visit Family Medicine Elias Duarte DO 132 [place] [address] [phone] 08/15/2020 Office Visit Cardiology Kings Camargo MD [address] [place] [address] [phone] Health Maintenance Due Date Last Done Comments COLONOSCOPY-EVERY 3 YRS AGES 18-100 12/27/2018 12/28/2015, 12/28/2015, 10/09/2012, Additional history exists *DEPRESSION SCREENING,ANNUAL FOR PTS 12 AND OVER [...] Documents on File Type Date Recorded Patient Certified Pediatric Nurse Practitioner 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
--- OUTSIDE RECORDS SUMMARY | 2023-05-29 | External Medical Summary | Summary of Care ---
Author Name Unknown Organization [facility] [place] [address] Care Team Providers Care Hearing Health Technician Name Role Phone Elias Duarte DO Primary Care Provider Reason for Visit * Reason Comments Referral colon Encounter Details Date Type Department Care Team Description 02/08/2020 Telephone Family Practice [facility] 132 [facility] [place] [address] Elias Duarte DO 132 [facility] [place] [address] [phone] Referral (colon) Allergies No Known Allergiesdocumented as of this encounter (statuses as of 02/16/2020) Medications Medication Sig Dispensed Refills Start Date End Date Status ASPIRIN 325 MG PO TABS 1 tab at bedtime 0 Active metoprolol succinate XL (TOPROL XL) 25 MG [id number]:Sympto matic PVCs Take 1 Tab by mouth [...] as of this encounter (statuses as of 02/16/2020) Active Problems Problem Noted Date Parkinson's disease [...] as of this encounter (statuses as of 02/16/2020) Resolved Problems Problem Noted Date Resolved Date [...] as of this encounter (statuses as of 02/16/2020) Immunizations Name Administration Dates Next Due DTaP [...] or suspected to have Coronavirus / COVID-19? Unable to assess 02/16/2020 10:08 AM EDT documented as of this encounter Miscellaneous Notes * Telephone Encounter - Flora Antunez OSA - 02/16/2020 10:15 AM EDT Patient is scheduled and agreeable to 03/08/[address] John. Covid test scheduled 03/05/2020. * Telephone Encounter - Flora Antunez OSA - 02/09/2020 12:41 PM EDT Left message via cell to return call to get scheduled * Telephone Encounter - Sana Waterman OSA - 02/08/2020 10:51 AM EDT Colonoscopy-screening Pt needs to check to see when his son can drive him documented in this encounter Plan of Treatment Upcoming Encounters Date Type Specialty Care Team Description 03/05/2020 Pandemic Screening Ancillary Us, Pre Surgical Covid Testing [facility] [address] [place] [address] 03/08/2020 Hospital Encounter Endoscopy Enid John MD [address] [place] [address] [phone] 03/08/2020 Surgery Endoscopy Enid John MD [address] [place] [address] [phone] COLONOSCOPY FLEXIBLE PROXIMAL DIAGNOSTIC 04/19/2020 Office Visit Neurology Tone Chavez DO [address] [facility] [place] [address] [phone] 05/16/2020 Office Visit Family Medicine Elias Duarte DO [address] [place] [address] [phone] 08/15/2020 Office Visit Cardiology Kings Camargo MD [address] [place] [address] [phone] Health Maintenance Due Date Last Done Comments [...] Documents on File Type Date Recorded Patient Credit Administration Officer 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
--- OUTSIDE RECORDS SUMMARY | 2023-05-29 | External Medical Summary | Summary of Care ---
Author Name Unknown Organization [place] [address] Care Team Providers Care Pearl Glue Operator Name Role Phone Elias Duarte DO Primary Care Provider [phone] Reason for Visit * Reason Comments Pre Cert/Prior Auth Encounter Details Date Type Department Care Team Description 01/20/2020 Telephone Pharmacy, [facility] 132 [facility] [place] [address] Nam Wagoner, [facility] 200 [facility] [address] [phone] Pre Cert/Prior Auth Allergies No Known Allergiesdocumented as of this encounter (statuses as of 02/12/2020) Medications Medication Sig Dispensed Refills Start Date End Date Status ASPIRIN 325 MG PO TABS 1 tab at bedtime 0 Active metoprolol succinate XL (TOPROL XL) 25 MG [id number]:Sy mptomatic PVCs Take 1 Tab by mouth [...] 5 12/30/2019 Active gabapentin (NEURONTIN) 100 MG CapsuleIndications :Paresthesia,Tremo r Take 1 Cap by mouth 3 times a day. 90 Cap 0 01/15/2020 Active carbidopa-levodopa 25-100 mg per tab (SINEMET) 25-100 MG per tabletIndications: Balance problem,Gait abnormality,Tremor ,Bradykinesia TAKE 1 TABLET 3 TIMES A DAY . FOLLOW INSTRUCTIONS IN HANDOUT 90 Tab 12 10/20/2019 0 Discontinue d(Adverse reaction) documented as of this encounter (statuses as of 02/12/2020) Active Problems Problem Noted Date Parkinson's disease [...] as of this encounter (statuses as of 02/12/2020) Resolved Problems Problem Noted Date Resolved Date [...] as of this encounter (statuses as of 02/12/2020) Immunizations Name Administration Dates Next Due DTaP [...] Vaccine (Adult) 02/12/2014 Zoster Vaccine Recombinant (Shingrix) 08/04/2019 documented as of this encounter Social History [...] Telephone Encounter - Jacki Dao LPN - 02/12/2020 8:55 AM EDT Called [phone] transferred to another number and spoke to Xenia brown info For auth she will send for review and will hear back on 02 15 20. Case # [id number] * Telephone Encounter - Carmina London MED ASSIST - 02/11/2020 8:59 AM EDT Sending to [place] [email or web address] * Telephone Encounter - Nam Wagoner [facility] - 02/11/2020 8:42 AM EDT Talked to pt. [phone] is the telephone number on the back of his [employer] card. Pt would like you to proceed with getting prior auth. * Telephone Encounter - Carmina London MED ASSIST - 01/29/2020 12:59 PM EDT Received fax from [employer]) saying that coverage is handled by another organization * Telephone Encounter - Carmina London MED ASSIST - 01/29/2020 9:15 AM EDT Attempted another prior auth through Cover My Meds. Unsuccessful to complete. Paper form of [place] faxed in with most recent office note * Telephone Encounter - Eleni Junior LPN - 01/28/2020 1:36 PM EDT Still waiting to hear from the insurance company * Telephone Encounter - Nam Wagoner RPh - 01/28/2020 11:49 AM EDT Tried running claim today and still indicating prior auth needed. Did you receive any additional updates on this? * Telephone Encounter - Carmina London MED ASSIST - 01/26/2020 9:30 AM EDT Prior auth sent in through Cover My Meds * Telephone Encounter - Nam Wagoner RPh - 01/20/2020 5:11 PM EDT Prior auth needed for gabapentin on [employer]. pts id is [id number]. documented in this encounter Plan of Treatment Upcoming Encounters Date Type Specialty Care Team Description 04/19/2020 Office Visit Neurology Tone Chavez, DO [address] [place], [place] [address] [phone] 05/16/2020 Office Visit Family Medicine Elias Duarte DO [address] [place] [address] [phone] 08/15/2020 Office Visit Cardiology Kings Camargo MD [address] [place] [address] [phone] Health Maintenance Due Date Last Done Comments [...] Documents on File Type Date Recorded Patient Hematology Nurse 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
--- OUTSIDE RECORDS SUMMARY | 2023-05-29 | External Medical Summary ---
Author Name Unknown Address [address] [place] [address] Phone Organization [facility] 132 [facility] [place] [address] Laboratory Report Ordering Provider Test Date Status ALEJANDRA OROZCO 02/08/2020 10:15:00 Final Observation Date Value Abnormality Reference (Units ) Status Fasting status Patient Ql Reported 02/08/2020 10:17 >8 HOURS (hours) Final Triglyceride 02/08/2020 19:14 205 Above high normal 0-174 (mg/dL) Final
Triglyceride Reference Ranges (mg/dL)
<150 Acceptable
150-174 Borderline high
175-499 High
>=500 Very high
Cholesterol 02/08/2020 19:14 132 <200 (mg/dL ) Final
Total Cholesterol Refer ence Ranges (mg/dL)
<200 Desirable
200-239 Borderline high
>=240 High

HDL 02/08/2020 19:14 36 Below low normal >39 (m g/dL) Final
HDL Cholesterol Referen ce Ranges (mg/dL)
>=60 High (Desirable)
<50 Low (Undesirable) For Females
<40 Low (Undesirable) For Males
NON-HDL CHOLESTEROL 02/08/2020 19:14 96 0-1 59 (mg/dL) Final
Non-HDL Cholesterol Ref erence Range (mg/dL)
<100 Target level for high risk ASCVD patient
<130 Optimal for general population
130-159 Near optimal for general population
160-189 Borderline High
190-219 High
>=220 Very High
LDL, (calculated) 02/08/2020 19:14 Uninterpretab le, recommend direct LDL cholesterol testing. 0-129 (mg/dL) Final Performing Location [address] [place] [address]
--- OUTSIDE RECORDS SUMMARY | 2023-05-29 | External Medical Summary ---
Author Name Unknown Address [address] [place] [address] Phone Organization [facility] [place] [facility] 132 [facility] [place] [address] Laboratory Report Ordering Provider Test Date Status ALEJANDRA OROZCO 02/08/2020 10:15:00 Final Observation Date Value Abnormality Reference (Units ) Status WBC, Total 02/08/2020 10:31 5.13 4.00-10.80 ( K/uL) Final RBC 02/08/2020 10:31 4.45 Below low normal 4.50-5 .25 (M/uL) Final Hemoglobin 02/08/2020 10:31 14.4 14.0-16.8 (g /dL) Final HCT 02/08/2020 10:31 43.0 40.0-48.4 (%) Final MCV 02/08/2020 10:31 96.6 82.0-99.5 (fL ) Final MCH 02/08/2020 10:31 32.4 27.0-34.0 (pg ) Final MCHC 02/08/2020 10:31 33.5 32.0-36.0 (g/ dL) Final RDW 02/08/2020 10:31 12.3 11.5-15.5 (%) Final Platelets 02/08/2020 10:31 173 140-400 (K/uL ) Final MPV 02/08/2020 10:31 10.6 6.6-11.1 (fL) Final Segs 02/08/2020 10:31 59.8 40-75 (%) Fin al Lymphs % 02/08/2020 10:31 24.4 18-42 (%) Fin al Monos 02/08/2020 10:31 9.9 1-11 (%) Fin al Eosinophils 02/08/2020 10:31 4.9 0-6 (%) F inal Basos 02/08/2020 10:31 1.0 0-2 (%) Fin al Neutrophils Bld 02/08/2020 10:31 3.07 1.8-7.7 (K/uL) Final Lymphs, absolute 02/08/2020 10:31 1.25 1.0-4. 8 (K/uL) Final Monos, Abs 02/08/2020 10:31 0.51 0.0-1.1 (K/u L) Final Eos, Abs 02/08/2020 10:31 0.25 0.0-0.7 (K/uL ) Final Basos, Abs 02/08/2020 10:31 0.05 0.0-0.2 (K/u L) Final Performing Location [address] [address]
--- OUTSIDE RECORDS SUMMARY | 2023-05-29 | External Medical Summary | Summary of Care ---
Author Name Unknown Organization [facility] Address [facility] [place] [address] Care Team Providers Care Slot Shift Manager Name Role Phone Elias Cleary DO Primary Care Provider Reason for Referral * Ancillary Services (Within 30 days (routine)) Status Reason Specialty Diagnoses / Procedures Referred By Contact Referred To Contact Pending Review Ancillary Services Required Gastroenterology Diagnoses Screen for colon cancer Elias Cleary DO 132 [facility] [place] [address] Reason for Visit * Reason Comments Follow Up Pt here for 6 mo f/u Pt states he is awaiting a change in Parkinson's medication from Dr. Birmingham, due to side effects. Immunizations Shingrix Encounter Details Date Type Department Care Team Description 02/08/2020 Office Visit Family Practice [facility] [address] [place] [address] Elias Cleary DO [facility] [place] [address] [phone] Parkinson's disease (HCC)*; Lumbar degenerative disc disease; PVC (premature ventricular contraction); Need for vaccination for zoster; Episode of recurrent major depressive disorder, unspecified depression episode severity (HCC); Sarcoidosis of lung (HCC); Screen for colon cancer Allergies No Known Allergiesdocumented as of this encounter (statuses as of 02/09/2020) Medications Medication Sig Dispensed Refills Start Date End Date Status ASPIRIN 325 MG PO TABS 1 tab at bedtime 0 Active metoprolol succinate XL (TOPROL XL) 25 MG [id number]:Sy mptomatic PVCs Take 1 Tab by mouth [...] 0 01/15/2020 Active DULoxetine (CYMBALTA) 30 MG CPEPIndications:Karla mbar degenerative disc disease,Episode of recurrent major depressive disorder, unspecified depression episode severity (HCC) TAKE 1 CAPSULE BY MOUTH DAILY. DO NOT CUT, CRUSH OR CHEW 90 Cap 0 01/26/2020 Active aspirin enteric coated (ASPIRIN 81) 81 MG TBEC Take 81 mg by mouth daily. 0 Active carbidopa-levodopa 25-100 mg per tab (SINEMET) [...] AM EDT documented as of this encounter Last Filed Vital Signs Vital Sign Reading Time Taken Comments Blood Pressure 116/68 02/08/2020 9:37 AM EDT Pulse 76 02/08/2020 9:37 AM EDT Temperature 36.8 C (98.2 F) 02/08/2020 9:37 AM ED T Respiratory Rate 16 02/08/2020 9:37 AM EDT Oxygen Saturation - - Inhaled Oxygen Concentration - - Weight 78.6 kg (173 lb 4 oz) 02/08/2020 9:37 AM EDT Height 172.1 cm (5' 7.75") 02/08/2020 9:37 AM ED T Body Mass Index 26.54 02/08/2020 9:37 AM EDT documented in this encounter Progress Notes * Elias Cleary DO - 02/08/2020 9:39 AM EDT Subjective: Brief Clinical History Mr. Alicea is a 70 year old man last seen in Family Medicine 6 months ago (08-04-19). He has h/o Parkinson's disease and Parkinson's disease (HCC), due for eval of Episode of recurrent major depressivedisorder ([facility]) and Sarcoidosis of lung ([facility]). Chief Complaint Patient presents with Follow Up Pt here for 6 mo f/u Pt states he is awaiting a change in Parkinson's medication from Dr. Birmingham, due to side effects. HPI: Patient is a 70-year-old male with history of parkinsonism, lumbar degenerative disc disease, sarcoidosis of the lung, and depression. Patient following with neurologist for diagnosis of parkinsonism has recently discontinued taking Sinemet due to adverse effects of worsened tremor. Patient prescribed gabapentin for tremors and bilateral foot paresthesias. Patient complains of depressed moodwith recent of his pet dog. Patient states he has been walking less after dog's . Patient denies suicidal ideation. Patient complains of chronic low back pain and stiffness. Patient deniesbowel or bladder dysfunction. Patient denies fatigue fever chills or sweats. Patient denies nasal congestion sore throat or earache. Patient denies cough or sputum. Patient denies chest pain palpitations or edema. Patient denies abdominal pain nausea vomiting diarrhea constipation. Patient denies joint swelling or rash. Review of systems otherwise negative Past Medical History: Medication list, PMH, Family history, social history, and problem list have been reviewed and updated in the Electronic Medical Record as noted below. Patient Active Problem List Diagnosis Code Mixed dyslipidemia E78.2 Sarcoidosis of lung ([facility]) D86.0 Routine medical exam Z00.00 Special screening for malignant neoplasms, colon Z12.11 Need for prophylactic vaccination against Streptococcus pneumoniae (pneumococcus) Z23 Irritable bowel syndrome with constipation K58.1 PVC (premature ventricular contraction) I49.3 Dizziness R42 Palpitations R00.2 Episode of recurrent major depressive disorder ([facility]) F33.9 Parkinson's disease ([facility]) G20 Lumbar degenerative disc disease M51.36 Current Outpatient Medications Medication Sig Dispense Refill aspirin enteric coated (ASPIRIN 81) 81 MG TBEC Take 81 mg by mouth daily. DULoxetine (CYMBALTA) 30 MG CPEP TAKE 1 CAPSULE BY MOUTH DAILY. DO NOT CUT, CRUSH OR CHEW 90 Cap 0 gabapentin (NEURONTIN) 100 MG Capsule Take 1 Cap by mouth 3 times a day. 90 Cap 0 finasteride (PROSCAR) 5 MG Tablet Take 1 Tab by mouth daily. 30 Tab 5 pravastatin (PRAVACHOL) 20 MG Tablet TAKE 1 TALBET EACH NIGHT AT BEDTIME 90 Tab 3 LINZESS 290 MCG Capsule TAKE 1 CAPSULE BY MOUTH DAILY BEFORE BREAKFAST 30 Cap 5 tamsulosin (FLOMAX) 0.4 MG Capsule Take 1 tablet at bedtime 30 Cap 5 metoprolol succinate XL (TOPROL XL) 25 MG TB24 Take 1 Tab by mouth daily. 90 Tab 3 carbidopa-levodopa 25-100 mg per tab (SINEMET) 25-100 MG per tablet TAKE 1 TABLET 3 TIMES A DAY . FOLLOW INSTRUCTIONS IN HANDOUT (Patient not taking: Reported on 02/08/2020) 90 Tab 12 zoster vac recomb adjuvanted (SHINGRIX) 50 MCG/0.5ML [...] performed by Dale Whitlock MD at ENDOSCOPY [facility] COLONOSCOPY, DIAGNOSTIC (RECTUM) 12/28/2015 adenomatous polyp, diverticulosis, repeat 3 yrs/COLONOSCOPY FLEXIBLE PROXIMAL DIAGNOSTIC performed by Enid John MD at ENDOSCOPY [facility] COLONOSCOPY/REMOVE LESION 04/27/2010 2 polyps tubulovillous adenomas--repeat [...] Years: 12.00 Pack years: 12.00 Types: Cigarettes Last attempt to quit: 07/22/1974 Years since quittin.5 Smokeless tobacco: Never Used Substance Use Topics Alcohol use: No Vaping/E-Cigarette Use Vaping/E-Cigarette Substances Vaping/E-Cigarette Devices Review of Systems: No nausea, vomiting or diarrhea. No chest pain or shortness of breath, No fatigue. No fevers, chillor night sweats. All other ROS examined in detail and are negative except as documented in HPI. All other systems reviewed and are negative. Objective: There were no vitals taken for this visit. Physical Exam: General: alert, healthy and no [...] no curvature, no costovertebral angle tenderness, lumbar decreased range of motion flexion L1-L5 Extremities: no edema, no clubbing, no cyanosis Neuro Exam: alert & oriented x 3 with fluent speech, no focal motor/sensory deficits, gait normal, reflexes normal and symmetric, depressed mood, no suicidal ideation, shuffled gait Skin: skin color, texture, turgor are normal, no rashes or significant lesions ASSESSMENT/PLAN: Parkinson's disease (HCC) (Primary) Start gabapentin 100 mg three times daily as per neurology Lumbar degenerative disc disease Home therapeutic exercise program , warm compresses q.i.d. Avoid strenuous activities, no heavy lifting Continue Cymbalta 30 mg once daily PVC (premature ventricular contraction) Stable Avoid caffeinated beverages, OTC decongestants Need for vaccination for zoster - ZOSTER VACCINE RECOMB, 2 DOSE, IM (SHINGRIX) Episode of recurrent major depressive disorder, unspecified depression episode severity (HCC) Stable Continue Cymbalta 30 mg once daily Sarcoidosis of lung (HCC) Stable Screen for colon cancer - COLONOSCOPY, GI REFERRAL OP Elias Cleary DO 02/08/20 Colonoscopy order selected today. Provider aware. documented in this encounter Nursing Notes * Crystal Douglas LPN - 02/08/2020 10:48 AM EDT Pre-Administration Time Out Procedure Performed: Yes Patient Identified (Ask Name/Date of ): Yes Does the patient have a fever greater than 101 degrees today? No Patient allergic to latex? No Has the patient ever fainted after receiving an injection? No VFC Stock: No Immunization(s) verified: Yes, Immunization Name: MYLES Strickland Sheet(s) given: Yes Verified Side and Site: Yes Verified Shot(s) with Parent(s)/Patient: Yes * Crystal Douglas LPN - 02/08/2020 9:36 AM EDT The patient has been properly identified by confirmation of name and date of . Chief Complaint Patient presents with Follow Up Pt here for 6 mo f/u Pt states he is awaiting a change in Parkinson's medication from Dr. Birmingham, due to side effects. documented in this encounter Plan of Treatment Upcoming Encounters Date Type Specialty Care Team Description 04/19/2020 Office Visit Neurology Tone Chavez DO [address] [place] [address] [phone] 05/16/2020 Office Visit Family Medicine Elias Cleary DO [address] [place] [address] [phone] 08/15/2020 Office Visit Cardiology Kings Camargo MD 132 [facility] [place] [address] Scheduled Referrals Name Type Priority Associated Diagnoses Orde r Schedule COLONOSCOPY, GI REFERRAL OP Referral Within 30 days (routine) Screen for colon cancer Ordered: 02/08/2020 Health Maintenance Due Date Last Done Comments [...] Degeneration of lumbar or lumbosacral intervertebral disc PVC (premature ventricular contraction) Other premature beats Need for vaccination for zoster Need for prophylactic vaccination and inoculation against other viral diseases Episode of recurrent major depressive disorder, unspecified depression episode severity (HCC) Sarcoidosis of lung (HCC) Sarcoidosis Screen for colon cancer Special screening for malignant neoplasms, colon documented in this encounter Advance Directives Documents on File Type Date Recorded Patient Armature And Rotor Winder 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
--- OUTSIDE RECORDS SUMMARY | 2023-05-29 | External Medical Summary | Summary of Care ---
Author Name Unknown Organization [facility] [place] [address] Care Team Providers Care Water Pumper Name Role Phone Elias Duarte DO Primary Care Provider [phone] Reason for Visit * Reason Comments eRx-Medication Refill Encounter Details Date Type Department Care Team Description 01/25/2020 Refill Family Practice [facility] [place] [address] Elias Duarte DO [address] [facility] [place] [address] [phone] Lumbar degenerative disc disease; Episode of recurrent major depressive disorder, unspecified depression episode severity (HCC) Allergies No Known Allergiesdocumented as of this encounter (statuses as of 01/26/2020) Medications Medication Sig Dispensed Refills Start Date End Date Status ASPIRIN 325 MG PO TABS 1 tab at bedtime 0 Active metoprolol succinate XL (TOPROL XL) 25 MG [id number]:Sy mptomatic PVCs Take 1 Tab by mouth [...] 180 days 1 Each 1 08/04/2019 Active carbidopa-levodopa 25-100 mg per tab (SINEMET) 25-100 MG per tabletIndications: Balance problem,Gait abnormality,Tremor ,Bradykinesia TAKE 1 TABLET 3 TIMES A DAY . FOLLOW INSTRUCTIONS IN HANDOUT 90 Tab 12 10/20/2019 Active LINZESS 290 MCG CapsuleIndications :Irritable bowel [...] OR CHEW 90 Cap 0 01/26/2020 Active DULoxetine (CYMBALTA) 30 MG CPEPIndications:Karla mbar degenerative disc disease,Episode of recurrent major depressive disorder, unspecified depression episode severity (HCC) TAKE 1 CAPSULE BY MOUTH DAILY. DO NOT CUT, CRUSH OR CHEW 30 Cap 5 05/08/2019 0 Discontinued documented as of this encounter (statuses as of 01/26/2020) Active Problems Problem Noted Date Parkinson's disease [...] as of this encounter (statuses as of 01/26/2020) Resolved Problems Problem Noted Date Resolved Date [...] as of this encounter (statuses as of 01/26/2020) Immunizations Name Administration Dates Next Due DTaP [...] have Coronavirus / COVID-19? No / Unsure 01/15/2020 10:12 AM EDT documented as of this encounter Miscellaneous Notes * Telephone Encounter - Elias Duarte DO - 01/26/2020 4:05 PM EDT Signed Prescriptions: Disp Refills DULoxetine (CYMBALTA) 30 MG CPEP 90 Cap 0 Sig: TAKE 1 CAPSULE BY MOUTH DAILY. DO NOT CUT, CRUSH OR CHEW Authorizing Provider: ELIAS DUARTE * Telephone Encounter - Claudia Bull [facility] - 01/26/2020 3:40 PM EDT Pending Prescriptions: Disp Refills DULoxetine (CYMBALTA) 30 MG CPEP [Pharmac*90 Cap 0 Sig: TAKE 1 CAPSULE BY MOUTH DAILY. DO NOT CUT, CRUSH OR CHEW * Telephone Encounter - Claudia Bull [facility] - 01/26/2020 3:39 PM EDT Part of the protocol criteria used for refill authorization was not satisfied. Patient needs updated BMP. Lab previously ordered since 08/04/19. Please approve if appropriate. Thanks, Claudia Bull, PharmD Clinical Pharmacist Telepharmacy 01/26/2020 3:39 PM * Telephone Encounter - Claudia Bull RP - 01/26/2020 3:39 PM EDT Pending Prescriptions: Disp Refills DULoxetine (CYMBALTA) 30 MG CPEP [Pharmac*30 Cap 5 Sig: TAKE 1 CAPSULE BY MOUTH DAILY. DO NOT CUT, CRUSH OR CHEW Last Office/Telemedicine Visit: 08/04/2019 Next Office Visit: 02/08/2020 Scheduled Provider(s): Elias Duarte DO If no future appointments scheduled, and last appointment is greater than a year ago, please schedule patient for a follow-up appointment Last date the medication was ordered: 05/08/19 Pharmacy: [facility] [address] [place] Is this request for a controlled substance?No Urine Drug Screen:No results found for this or any previous visit. Patient Phone Numbers Labs: Lab Results Component Value Date/Time CREAT 0.8 08/18/2018 12:44 PM POTASSIUM 4.7 08/15/2017 08:12 AM TSH 1.66 08/15/2017 08:12 AM LDLCALC 61 08/18/2018 12:44 PM ALT 9 (L) 08/15/2017 08:12 AM HGBA1C 5.4 08/15/2017 08:12 AM documented in this encounter Plan of Treatment Upcoming Encounters Date Type Specialty Care Team Description 02/08/2020 Office Visit Family Medicine Elias Duarte DO [address] [place] [address] [phone] 04/19/2020 Office Visit Neurology Tone Chavez DO [address] [place] [address] [phone] 08/15/2020 Office Visit Cardiology Kings Camargo MD [address] [place] [address] [phone] Health Maintenance Due Date Last Done Comments COLONOSCOPY-EVERY 3 YRS AGES 18-100 12/27/2018 12/28/2015, 12/28/2015, 10/09/2012, Additional history exists Zoster Vaccines (3 of 3) 09/29/2019 08/04/2019, 01/20 *DEPRESSION SCREENING,ANNUAL FOR PTS 12 AND OVER 10/30/2019 Influenza Vaccine (FLU shot) (#1) 2020 08/04/2019, 06/19/2018, 07/23/2017, Additional history exists DIABETES SCREEN EVERY 3 YRS-AGE 45 AND ABOVE 08/15/2020 08/15/2017, 08/15/2017, 03/12/2016, Additional history exists LIPID SCREEN EVERY 5 YRS-MEN AGE 35-75 08/18/2023 08/18/2018, 08/15/2017, 03/12/2016, Additional history exists DTaP,Tdap,and Td Vaccines (3 - Td) 02/13/2024 02/12/2014, 07/14/2009 Pneumococcal Vaccine: 65+ Years Completed 03/06/2016, 08/19/2013 ABDOMINAL AORTIC ANEURYSM (AAA) SCREENING Completed 07/25/2017 MENINGOCOCCAL (MENACTRA/MENVEO) Aged Out No longer eligible [...] Documents on File Type Date Recorded Patient Server Administrator 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
--- OUTSIDE RECORDS SUMMARY | 2023-05-29 | External Medical Summary ---
Author Name Unknown Address [address] [facility] [place] [address] Phone Organization K0G:[facility] [address] [facility] [place] [address] Laboratory Report Ordering Provider Test Date Status ALEJANDRA OROZCO 02/08/2020 10:15:00 Final Observation Date Value Abnormality Reference (Units ) Status Albumin 02/08/2020 11:55 4.6 3.8-5.0 (g/dL ) Final AST (Aspartate aminotransferase) 02/08/2020 11:55 21 10-50 (U/L) Final Alk Phos 02/08/2020 11:55 80 0-153 (U/L) F inal ALT (Alanine aminotransferase) 02/08/2020 11:55 20 10-50 (U/L) Final Bilirubin, Total 02/08/2020 11:55 0.6 0-1.2 (mg/dL) Final Bilirubin, Direct 02/08/2020 15:21 <0.2 0-0.3 (mg/dL) Final Protein 02/08/2020 11:55 6.8 6.0-8.3 (g/dL ) Final Performing Location [facility] [address] [facility] [place] [address]
--- OUTSIDE RECORDS SUMMARY | 2023-05-29 | External Medical Summary | Summary of Care ---
Author Name Unknown Organization [place] [address] Care Team Providers Care Blintze Roller Name Role Phone Elias Duarte DO Primary Care Provider [phone] Reason for Visit * Reason Comments Pre Cert/Prior Auth Encounter Details Date Type Department Care Team Description 01/20/2020 Telephone Pharmacy, [facility] [address] [facility] [place] [address] Nam Wagoner, [facility] [address] [facility] [address] [phone] Pre Cert/Prior Auth Allergies No Known Allergiesdocumented as of this encounter (statuses as of 02/15/2020) Medications Medication Sig Dispensed Refills Start Date End Date Status ASPIRIN 325 MG PO TABS 1 tab at bedtime 0 Active metoprolol succinate XL (TOPROL XL) 25 MG [id number]:Sy mptomatic PVCs Take 1 Tab by mouth [...] as of this encounter (statuses as of 02/15/2020) Active Problems Problem Noted Date Parkinson's disease [...] as of this encounter (statuses as of 02/15/2020) Resolved Problems Problem Noted Date Resolved Date [...] as of this encounter (statuses as of 02/15/2020) Immunizations Name Administration Dates Next Due DTaP [...] Telephone Encounter - Eleni Junior LPN - 02/15/2020 10:06 AM EDT Approved. See other encounter. * Telephone Encounter - Jacki Dao LPN - 02/12/2020 8:55 AM EDT Called [phone] transferred to another number and spoke to Xenia brown info For auth she will send for review and will hear back on 02 15 20. Case # [id number] * Telephone Encounter - [place], LAYTON Marrero - 02/11/2020 8:59 AM EDT Sending to [place] pool * Telephone Encounter - Nam Wagoner RPh - 02/11/2020 8:42 AM EDT Talked to pt. [phone] is the telephone number on the back of his [employer] card. Pt would like you to proceed with getting prior auth. * Telephone Encounter - Carmina [place] MED ASSIST - 01/29/2020 12:59 PM EDT Received fax from [employer]) saying that coverage is handled by another [...] company * Telephone Encounter - Nam Wagoner RP - 01/28/2020 11:49 AM EDT Tried running [...] for gabapentin on [employer]. pts id is [id number]. 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
--- OUTSIDE RECORDS SUMMARY | 2023-05-29 | External Medical Summary ---
Author Name Unknown Address [address] [place] [address] Phone Organization K01:[facility] [address] [facility] [address] Laboratory Report Ordering Provider Test Date Status ALEJANDRA OROZCO 02/08/2020 10:15:00 Final Observation Date Value Abnormality Reference (Units ) Status Hep C Ab 02/08/2020 19:19 NEGATIVE NEG Final HCV COMMENT 02/09/2020 08:15 Further HCV quantitative testing not performed per protocol. Final Performing Location [facility] [address] [facility] [address]
--- OUTSIDE RECORDS SUMMARY | 2023-05-29 | External Medical Summary | Summary of Care ---
Author Name Unknown Organization [facility] Address [place] [address] Care Team Providers Care Curtain Cutter Name Role Phone Elias Duarte DO Primary Care Provider Reason for Visit * Reason Comments Referral colon Encounter Details Date Type Department Care Team Description 02/08/2020 Telephone Family Practice [facility] [address] [facility] [place] [address] Elias Duarte DO 132 [facility] [place] [address] [phone] Referral (colon) Allergies No Known Allergiesdocumented as of this encounter (statuses as of 02/08/2020) Medications Medication Sig Dispensed Refills Start Date End Date Status ASPIRIN 325 MG PO TABS 1 tab at bedtime 0 Active metoprolol succinate XL (TOPROL XL) 25 MG [id number]:Sympto matic PVCs Take 1 Tab by mouth [...] as of this encounter (statuses as of 02/08/2020) Active Problems Problem Noted Date Parkinson's disease [...] as of this encounter (statuses as of 02/08/2020) Resolved Problems Problem Noted Date Resolved Date [...] as of this encounter (statuses as of 02/08/2020) Immunizations Name Administration Dates Next Due DTaP [...] Office Visit Neurology Tone Chavez DO [address] [facility] [place] [address] [phone] 05/16/2020 Office Visit Family Medicine Elias Duarte DO [address] [place] [address] [phone] 08/15/2020 Office Visit Cardiology Kings Camargo MD [address] [place] [address] [phone] Health Maintenance Due Date Last Done Comments [...] Documents on File Type Date Recorded 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
--- OUTSIDE RECORDS SUMMARY | 2023-05-29 | External Medical Summary | Summary of Care ---
Author Name Unknown Organization [facility] Address [facility] [place] [address] Care Team Providers Care Personal Vehicle Advisor Name Role Phone Elias Duarte DO Primary Care Provider [phone] Encounter Details Date Type Department Care Team Description 02/16/2020 Orders Only Nutrition & Weight Management, [facility] [address] [facility] [place] [address] Enid John MD [address] [facility] [place] [address] [phone] Pre-operative exam* Allergies No Known Allergiesdocumented as of this encounter (statuses as of 02/16/2020) Medications Medication Sig Dispensed Refills Start Date End Date Status ASPIRIN 325 MG PO TABS 1 tab at bedtime 0 Active metoprolol succinate XL (TOPROL XL) 25 MG [id number]:Sympto matic PVCs Take 1 Tab by mouth [...] AM EDT documented as of this encounter Plan of Treatment Upcoming Encounters Date Type Specialty Care Team Description 03/05/2020 Pandemic Screening Ancillary Us, Pre Surgical Covid Testing [facility] [address] [place] [address] 03/08/2020 Hospital Encounter Endoscopy Enid John MD [address] [place] [address] [phone] 03/08/2020 Surgery Endoscopy Enid John MD [address] [place] [address] [phone] COLONOSCOPY FLEXIBLE PROXIMAL DIAGNOSTIC 04/19/2020 Office Visit Neurology [place], Tone Ravindra, DO [address] [place] [address] [phone] 05/16/2020 Office Visit Family Medicine Elias Duarte DO [address] [place] [address] [phone] 08/15/2020 Office Visit Cardiology Kings Camargo MD [address] [place] [address] [phone] Scheduled Orders Name Type Priority Associated Diagnoses Orde r Schedule COVID-19 Lab Routine Pre-operative exam Expected: 02/16/2020, Expires: Health Maintenance Due Date Last Done Comments [...] as of this encounter Visit Diagnoses Diagnosis Pre-operative exam- Primary Preoperative examination, unspecified documented in this encounter Advance Directives Documents on File Type Date Recorded Patient Political Science Research Assistant 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
--- OUTSIDE RECORDS SUMMARY | 2023-05-29 | External Medical Summary ---
Author Name Unknown Address Unknown Organization [facility] USE ONLY!!! Laboratory Report Ordering Provider Test Date Status GERMANIA MEEK 03/05/2020 16:16:00 Final Observation Date Value Abnormality Reference (Units ) Status SPECIMEN SOURCE 03/05/2020 16:17 NASAL TURBINATE Final SARS coronavirus 2 ORF1ab region [Presence] in Respiratory specimen by KELLEY with probe detection 03/06/2020 15:03 NEGATIVE NEG Final
This automated test was developed and its performance
characteristics determined by [facility]. It has not been cleared or approved by the
U.S. Food and Drug Administration (FDA), FDA does not
require this test to go through premarket FDA review.
THIS TEST IS USED FOR CLINICAL PURPOSES. IT SHOULD NOT BE REGARDED INVESTIGATIONAL OR FOR RESEARCH. THIS LABORATORY IS CERTIFIED UNDER THE CLINICAL LABORATORY IMPROVEMENT AMENDMENTS (CLIA) QUALIFIED TO PERFORM HIGH COMPLEXITY CLINICAL LABORATORY TESTING. COMMENT 03/06/2020 15:03 2019 Novel coronavirus NOT detect ed Final Performing Location IT USE ONLY!!!
--- OUTSIDE RECORDS SUMMARY | 2023-05-29 00:01 | External Medical Summary | Summary of Care ---
Author Name Unknown Organization [facility] [address] Care Team Providers Care Learning Development Specialist Name Role Phone Elias Duarte DO Primary Care Provider Reason for Visit * Reason Comments Follow Up one year return Encounter Details Date Type Department Care Team Description 08/18/2019 Office Visit Cardiology, [facility] [address] [place] [address] Kings Camargo MD [address] [facility] [place] [address] [phone] PVC (premature ventricular contraction)* Allergies No Known Allergiesdocumented as of this encounter (statuses as of 08/18/2019) Medications Medication Sig Dispensed Refills Start Date End Date Status ASPIRIN 325 MG PO TABS 1 tab at bedtime 0 Active carbidopa-levodopa 25-100 mg per tab (SINEMET) 25-100 MG per tabletIndications:Ba natacha problem,Gait abnormality,Tremor,B radykinesia Take 1 Tab by mouth 3 times a day. Follow instructions in handout 90 Tab 12 09/29/2018 Active finasteride (PROSCAR) 5 MG TabletIndications:BP H with obstruction/lower urinary tract symptoms Take 1 Tab by mouth daily. 30 Tab 5 12/05/2018 Active pravastatin (PRAVACHOL) 20 MG TabletIndications:Mi xed dyslipidemia,PVC (premature ventricular contraction) TAKE 1 TABLET EACH NIGHT AT BEDTIME 90 Tab 3 12/08/2018 Active metoprolol succinate XL (TOPROL XL) 25 MG [id number]:Symp tomatic PVCs Take 1 Tab by mouth daily. 90 Tab 3 03/26/2019 Active LINZESS 290 MCG CapsuleIndications:I rritable bowel syndrome with constipation TAKE 1 CAPSULE BY MOUTH DAILY BEFORE BREAKFAST 30 Cap 5 05/01/2019 Active DULoxetine (CYMBALTA) 30 MG CPEPIndications:Lumb ar degenerative disc disease,Episode of recurrent major depressive disorder, unspecified depression episode severity (HCC) TAKE 1 CAPSULE BY MOUTH DAILY. DO NOT CUT, CRUSH OR CHEW 30 Cap 5 05/08/2019 Active tamsulosin (FLOMAX) 0.4 MG CapsuleIndications:B PH with obstruction/lower urinary tract symptoms Take 1 tablet at bedtime 30 Cap 5 06/10/2019 Active zoster vac recomb adjuvanted (SHINGRIX) 50 MCG/0.5ML injectionIndications :Need for vaccination for zoster Inject 0.5 mL into a large muscle now and repeat dose in 60 to 180 days 1 Each 1 08/04/2019 Active documented as of this encounter (statuses as of 08/18/2019) Active Problems Problem Noted Date Parkinson's disease [...] as of this encounter (statuses as of 08/18/2019) Resolved Problems Problem Noted Date Resolved Date [...] as of this encounter (statuses as of 08/18/2019) Immunizations Name Administration Dates Next Due DTaP [...] End No recent travel history emmanuel ilable. documented as of this encounter Last Filed Vital Signs Vital Sign Reading Time Taken Comments Blood Pressure 112/66 08/18/2019 11:53 AM EST Pulse 70 08/18/2019 11:53 AM EST Temperature - - Respiratory Rate 16 08/18/2019 11:53 AM EST Oxygen Saturation - - Inhaled Oxygen Concentration - - Weight 78.5 kg (173 lb) 08/18/2019 11:53 AM EST Height - - Body Mass Index 24.82 08/04/2019 4:15 PM EST documented in this encounter Progress Notes * Kings Camargo MD - 08/18/2019 1:26 PM EST 08/18/2019 Cardiology Follow Up Referring Provider: PCP: ELIAS DUARTE [address] [place] [address] [place] [address] [phone] Chief Complaint: Routine followup, chronic ventricular ectopy SUBJECTIVE: Jacques Alicea is a 69 year old year old male past medical history 1. Chronic ventricular ectopy 2. Dyslipidemia 3. Remote history of sarcoidosis greater than 30 years past without evidence of recurrence 4. Parkinsonism Patient presents today in routine followup denies any acute cardiac decline. Notes since last visithas received formal diagnosis of parkinsonism and begun on therapy. Overall tolerating well with occasional lightheadedness on standing. No chest pains no tachy palpitations no syncope near syncope. Patient not aware of chronic ventricular ectopy. Appetite and weight have been generally stable. No u nexplained fevers or infections. A Complete Review of 10 Systems is as stated above or negative. Patient Active Problem List Diagnosis Code Mixed dyslipidemia E78.2 Sarcoidosis of lung ([facility]) D86.0 Routine medical exam Z00.00 Special screening for malignant neoplasms, colon Z12.11 Need for prophylactic vaccination against Streptococcus pneumoniae (pneumococcus) Z23 Irritable bowel syndrome with constipation K58.1 PVC (premature ventricular contraction) I49.3 Dizziness R42 Palpitations R00.2 Episode of recurrent major depressive disorder (HCC) F33.9 Parkinson's disease ([facility]) G20 Lumbar degenerative disc disease M51.36 Review of patient's allergies indicates: No Known Allergies Current Outpatient Medications Medication Sig Dispense Refill tamsulosin (FLOMAX) 0.4 MG Capsule Take 1 tablet at bedtime 30 Cap 5 DULoxetine (CYMBALTA) 30 MG CPEP TAKE 1 CAPSULE BY MOUTH DAILY. DO NOT CUT, CRUSH OR CHEW 30 Cap 5 LINZESS 290 MCG Capsule TAKE 1 CAPSULE BY MOUTH DAILY BEFORE BREAKFAST 30 Cap 5 metoprolol succinate XL (TOPROL XL) 25 MG TB24 Take 1 Tab by mouth daily. 90 Tab 3 pravastatin (PRAVACHOL) 20 MG Tablet TAKE 1 TABLET EACH NIGHT AT BEDTIME 90 Tab 3 finasteride (PROSCAR) 5 MG Tablet Take 1 Tab by mouth daily. 30 Tab 5 carbidopa-levodopa 25-100 mg per tab (SINEMET) 25-100 MG per tablet Take 1 Tab by mouth 3 timesa day. Follow instructions in handout 90 Tab 12 ASPIRIN 325 MG PO TABS 1 tab at bedtime zoster vac recomb adjuvanted (SHINGRIX) 50 MCG/0.5ML injection Inject 0.5 mL into a large muscle now and repeat dose in 60 to 180 days 1 Each 1 OBJECTIVE/PHYSICAL EXAMINATION: BP 112/66 | Pulse 70 | Resp 16 | Wt 173 lbs (78.472kg) | BMI 24.82 kg/m | BSA 1.97 m General: no acute distress and stated [...] mild resting tremor Data: EKG performed today, 08/18/2019 , and reviewed personally : Sinus rhythm rate of 70 with occasional ventricular ectopic beats no other acute changes Lipid Panel Results: LIPID PANEL Gabriel Dt/Tm Resulted Value Status HOURS FASTING (hours) 08/18/18 12:44P 08/18/18 >8 HOURS F TRIGLYCERIDES (mg/dL) 08/18/18 12:44P 08/18/18 247* F CHOLESTEROL (mg/dL) 08/18/18 12:44P 08/18/18 154 F HDL (mg/dL) 08/18/18 12:44P 08/18/18 44 F CHOL/HDL RATIO ( ) 08/18/18 12:44P 08/18/18 3.5 F LDL (CALCULATED) (mg/dL) 08/18/18 12:44P 08/18/18 61 F Stress echocardiogram September 11, 2018 The stress [...] (normal). There is no valvular disease ASSESSMENT: 69 year old year old male Followed for history of are chronic ventricular ectopy cardiac risk factors of dyslipidemia Overall cardiac status appears stable. No dizziness or lightheadedness syncope or near-syncope. Ventricular ectopy are present on examination though patient unaware. Blood pressure and lipids well controlled Stress echocardiography August 2018 without ischemia PLAN: Continue all current therapies and management. Noted will need to be more cautious regarding orthostasis given combination therapies hypertension, prostate, parkinsonism. Patient report any issues orcomplaints DISPOSITION: Routine followup scheduled 1 year's time Kings Camargo MD [facility] Cardiology, [place] [address] documented in this encounter Procedure Notes * Wilder Figueroa DO - 08/18/2019 12:01 PM EST Associated Order(s): EKG REASON FOR STUDY: PVC CONCLUSIONS: Sinus rhythm with frequent Premature ventricular complexes Otherwise normal ECG When compared with ECG of 18-AUG-2018 12:03, Premature ventricular complexes are now Present Criteria for Septal infarct are no longer Present Ventricular Rate: 70 Atrial Rate: 70 DE Interval: 144 QRS Duration: 78 QT/QTc: 396/427 ms P-R-T [place]: 73 : 65 : 3 degrees documented in this encounter Nursing Notes * Garth William RN - 08/18/2019 11:55 AM EST Examination Room: Name: Jacques Alicea Date of : (1950). Reason for Visit: one year return Interim Hospitalization(s): denies Problems/Concerns: denies Chest Pain/SOB: denies My [facility] is a way you can talk to your provider online through e-mail. Would you like to sign up? I can activate it for you? ALREADY ACTIVE documented in this encounter Plan of Treatment Upcoming Encounters Date Type Specialty Care Team Description 08/28/2019 Office Visit Neurology Lilibeth Serrato CRNP [address] [address] [phone] 02/08/2020 Office Visit Family Medicine Elias Duarte DO [address] [place] [address] [phone] 08/15/2020 Office Visit Cardiology Kings Camargo MD [address] [place] [address] [phone] Health Maintenance Due Date Last Done Comments COLONOSCOPY-EVERY 3 YRS AGES 18-100 12/27/2018 12/28/2015, 12/28/2015, 10/09/2012, Additional history exists Zoster Vaccines (3 of 3) 09/29/2019 08/04/2019, 01/20 DIABETES SCREEN EVERY 3 YRS-AGE 45 AND ABOVE 08/15/2020 08/15/2017, 08/15/2017, 03/12/2016, Additional history exists LIPID SCREEN EVERY 5 YRS-MEN AGE 35-75 08/18/2023 08/18/2018, 08/15/2017, 03/12/2016, Additional history exists DTaP,Tdap,and Td Vaccines (3 - Td) 02/13/2024 02/12/2014, 07/14/2009 Pneumococcal Vaccine: 65+ Years Completed 03/06/2016, 08/19/2013 ABDOMINAL AORTIC ANEURYSM (AAA) SCREENING Completed 07/25/2017 Influenza Vaccine (FLU shot) Completed , 06/19/2018, 07/23/2017, Additional history exists MENINGOCOCCAL (MENACTRA/MENVEO) Aged Out No longer eligible based on patient's age to complete this topic documented as of this encounter Implants Not on filedocumented as of this encounter Procedures Procedure Name Priority Date/Time Associated Diagnosis Comments EKG Routine 08/18/2019 12:01 PM EST PVC (premature ventricular contraction) documented in this encounter Results * EKG (08/18/2019 12:01 PM EST) Specimen Procedure Note Wilder Figueroa DO - 08/18/2019 12:01 PM EST REASON FOR STUDY: PVC CONCLUSIONS: Sinus rhythm with frequent Premature ventricular complexes Otherwise normal ECG When compared with ECG of 18-AUG-2018 12:03, Premature ventricular complexes are now Present Criteria for Septal infarct are no longer Present Ventricular Rate: 70 Atrial Rate: 70 DE Interval: 144 QRS Duration: 78 QT/QTc: 396/427 ms P-R-T [place]: 73 : 65 : 3 degrees Performing Organization Address [facility] Phone Number [facility] documented in this encounter Visit Diagnoses Diagnosis PVC (premature ventricular contraction)- Primary Other premature beats documented in this encounter Advance Directives Documents on File Type Date Recorded Patient Recreational Aide 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"
--- OUTSIDE RECORDS SUMMARY | 2023-05-29 00:01 | External Medical Summary | Summary of Care ---
Author Name Unknown Organization [place] [address] Care Team Providers Care Instructor Modeling Name Role Phone Elias Duarte DO Primary Care Provider Reason for Visit * Reason Comments Appointment Canceled Encounter Details Date Type Department Care Team Description 11/13/2019 Telephone Neurology [facility] [address] [place] [address] Lilibeth Serrato CRNP [address] [place], [place] [id number] Appointment Canceled Allergies No Known Allergiesdocumented as of this encounter (statuses as of 11/13/2019) Medications Medication Sig Dispensed Refills Start Date End Date Status ASPIRIN 325 MG PO TABS 1 tab at bedtime 0 Active finasteride (PROSCAR) 5 MG TabletIndications:BP H with obstruction/lower urinary tract symptoms Take 1 Tab by mouth daily. 30 Tab 5 12/05/2018 Active pravastatin (PRAVACHOL) 20 MG TabletIndications:Mi xed dyslipidemia,PVC (premature ventricular contraction) TAKE 1 TABLET EACH NIGHT AT BEDTIME 90 Tab 3 12/08/2018 Active metoprolol succinate XL (TOPROL XL) 25 MG [id number]:Symp tomatic PVCs Take 1 Tab by mouth [...] MG per tabletIndications:Ba natacha problem,Gait abnormality,Tremor,B radykinesia TAKE 1 TABLET 3 TIMES A DAY . FOLLOW INSTRUCTIONS IN HANDOUT 90 Tab 12 10/20/2019 Active documented as of this encounter (statuses as of 11/13/2019) Active Problems Problem Noted Date Parkinson's disease [...] as of this encounter (statuses as of 11/13/2019) Resolved Problems Problem Noted Date Resolved Date [...] as of this encounter (statuses as of 11/13/2019) Immunizations Name Administration Dates Next Due DTaP [...] have Coronavirus / COVID-19? Unable to assess 10/21/2019 2:31 PM EDT documented as of this encounter Miscellaneous Notes * Telephone Encounter - Isa Obando OSA - 11/13/2019 5:26 PM EDT LM pt needs resched for tele-med and new provider documented in this encounter Plan of Treatment Upcoming Encounters Date Type Specialty Care Team Description 02/08/2020 Office Visit Family Medicine Elias Duarte DO [address] [place] [address] [phone] 08/15/2020 Office Visit Cardiology Kings Camargo MD [address] [place] [address] [phone] Health Maintenance Due Date Last Done Comments COLONOSCOPY-EVERY 3 YRS AGES 18-100 12/27/2018 12/28/2015, 12/28/2015, 10/09/2012, Additional history exists Zoster Vaccines (3 of 3) 09/29/2019 08/04/2019, 01/20 *DEPRESSION SCREENING,ANNUAL FOR PTS 12 AND OVER 10/30/2019 DIABETES SCREEN EVERY 3 YRS-AGE 45 AND [...] Documents on File Type Date Recorded Patient Internship 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
--- OUTSIDE RECORDS SUMMARY | 2023-05-29 00:01 | External Medical Summary | Summary of Care ---
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 previous Dion pt. Encounter Details Date Type Department Care Team Description 01/15/2020 Telemedicine Neurology [facility] [address] [place] [address] Tone Chavez [address] [place], [place] [id number] Parkinson's disease (HCC)*; Paresthesia; Tremor Allergies No Known Allergiesdocumented as of this encounter (statuses as of 01/15/2020) Medications Medication Sig Dispensed Refills Start Date End Date Status ASPIRIN 325 MG PO TABS 1 tab at bedtime 0 Active metoprolol succinate XL (TOPROL XL) 25 MG [id number]:Symp tomatic PVCs Take 1 Tab by mouth daily. 90 Tab 3 03/26/2019 Active DULoxetine (CYMBALTA) 30 MG CPEPIndications:Lumb ar [...] Tab 12 10/20/2019 Active LINZESS 290 MCG CapsuleIndications:I rritable bowel syndrome with constipation TAKE 1 CAPSULE BY MOUTH DAILY BEFORE BREAKFAST 30 Cap 5 11/24/2019 Active pravastatin (PRAVACHOL) 20 MG TabletIndications:Mi xed dyslipidemia,PVC (premature ventricular contraction) TAKE 1 TALBET EACH NIGHT AT BEDTIME 90 Tab 3 12/29/2019 Active finasteride (PROSCAR) 5 MG TabletIndications:BP H with obstruction/lower urinary tract symptoms Take 1 Tab by mouth daily. 30 Tab 5 12/30/2019 Active gabapentin (NEURONTIN) 100 MG CapsuleIndications:P aresthesia,Tremor Take 1 Cap by mouth 3 times a day. 90 Cap 0 01/15/2020 Active documented as of this encounter (statuses as of 01/15/2020) Active Problems Problem Noted Date Parkinson's disease [...] as of this encounter (statuses as of 01/15/2020) Resolved Problems Problem Noted Date Resolved Date [...] as of this encounter (statuses as of 01/15/2020) Immunizations Name Administration Dates Next Due DTaP [...] Reading Time Taken Comments Blood Pressure 136/80 01/15/2020 10:22 AM EDT Pulse 80 01/15/2020 10:22 AM EDT Temperature 36.4 C (97.5 F) 01/15/2020 10:22 AM E DT Respiratory Rate - - Oxygen Saturation - - Inhaled Oxygen Concentration - - Weight 78.1 kg (172 lb 3.2 oz) 01/15/2020 10:22 AM EDT Height - - Body Mass Index 24.71 08/04/2019 4:15 PM EST documented in this encounter Progress Notes * Tone Chavez, DO - 01/15/2020 10:43 AM EDT Progress Note - Neurology [facility] [address] [place] [address] NAME: Jacques Alicea Date of : 1950 Date of Visit: 01/15/20 Chief Complaint: Chief Complaint Patient presents with Re-Check Parkinsons. previous Dion pt. Subjective: A 70 year old PD presenting to clinic for follow. Last seen in 05/2019. He notes issueswith his feet and has been seen by several boot and shoe repairman. He is concerned his sinemet is making thingsworse. He complaints of stiffness and tremors. Symptoms fluctuate. He has pain in his feet. Asking if he should see ortho and if his trouble concentrating in elementary school is related to PD. HOME MEDICATIONS : Current Outpatient Medications Medication Sig Dispense Refill finasteride (PROSCAR) 5 MG Tablet Take 1 Tab by mouth daily. 30 Tab 5 pravastatin (PRAVACHOL) 20 MG Tablet TAKE 1 TALBET EACH NIGHT AT BEDTIME 90 Tab 3 LINZESS 290 MCG Capsule TAKE 1 CAPSULE BY MOUTH DAILY BEFORE BREAKFAST 30 Cap 5 carbidopa-levodopa 25-100 mg per tab (SINEMET) 25-100 MG per tablet TAKE 1 TABLET 3 TIMES A DAY. FOLLOW INSTRUCTIONS IN HANDOUT 90 Tab 12 tamsulosin (FLOMAX) 0.4 MG Capsule Take 1 tablet at bedtime 30 Cap 5 DULoxetine (CYMBALTA) 30 MG CPEP TAKE 1 CAPSULE BY MOUTH DAILY. DO NOT CUT, CRUSH OR CHEW 30 Cap 5 metoprolol succinate XL (TOPROL XL) 25 MG TB24 Take 1 Tab by mouth daily. 90 Tab 3 ASPIRIN 325 MG PO TABS 1 tab at bedtime zoster vac recomb adjuvanted (SHINGRIX) 50 MCG/0.5ML injection Inject 0.5 mL into a large muscle now and repeat dose in 60 to 180 days 1 Each 1 Review of patient's allergies indicates: No Known Allergies PHYSICAL EXAMINATION: Vital Signs: BP 136/80 | Pulse 80 | Temp (Src) 97.5 (Tympanic) | Wt 172 lbs 3.2 oz (78.109kg) | BMI 24.71 kg/m| BSA 1.96 m EXAM: Constitutional: appearance normally developed, well nourished Head and Face: normocephalic and atraumatic Eyes: normal lids, normal conjunctiva Neck: supple Respiratory: normal effort Skin: no rashes, lesions, or ulcers noted Psychiatric: normal judgement and insight, normal mood and normal affect NEUROLOGIC EXAMINATION: Appearance: no acute distress Orientation: awake, alert and oriented x 3 Mental Status: alert Attention: normal Knowledge: appropriate Language: no aphasia Speech: soft speech Cranial Nerves: CN 2 - no visual defect on confrontation and pupils round, equal CN 3, 4, 6 - extra-ocular movements intact and no nystagmus CN 5 - facial sensation intact CN 7 - no facial asymmetry CN 8 - intact hearing CN 9, 10 - palate symmetric CN 11 - good shoulder shrug CN 12 - tongue midline LABORATORY: Labs reviewed and pertinent findings are indicated below: Review of prior Diagnostic Tests: Review of prior Radiology Studies: IMPRESSION / PLAN: Jacques was seen today for re-check. Diagnoses and all orders for this visit: Parkinson's disease (HCC) Paresthesia - gabapentin (NEURONTIN) 100 MG Capsule; Take 1 Cap by mouth 3 times a day. Tremor - gabapentin (NEURONTIN) 100 MG Capsule; Take 1 Cap by mouth 3 times a day. Mr. Alicea is a pleasant 70 year old Male with parkinsonism presenting to clinic for follow up. Concerned Sinemet is making his symptoms worse and not helping. He continues to note intermittent tremors and pain in his feet. Has had surgery on feet for plantar fascitis. Will stop Sinemet and start Gabapentin 100 mg TID. Will follow up in 3 months. Tone Chavez DO This clinic encounter was completed utilizing remote or virtual means secondary to the COVID-19 outbreak. Documentation to satisfy this neurologic encounter is described below. After connecting through [employer], patient was verified with two unique identifiers. Patient (or authorized legal open claims representative) was then informed that this was a Telemedicine visit and that the exam was being conducted confidentially over secure lines. My office door was closed. No one else was in the room with me. Patient acknowledged consent and understanding of privacy and security of the Telemedicine visit and gave permission to have a telemedicine presenter/family member stay in the room in order to assist with the history and to conduct the exam if needed. I informed the patient thatI have reviewed their record in [employer] and presented the opportunity for them to ask any questions reg arding the visit today. The patient agreed to participate. documented in this encounter Nursing Notes * Eleni Junior LPN - 01/15/2020 10:26 AM EDT Patient verified identity by spelling of last name and date. Chief Complaint Patient presents with Re-Check Parkinsons. previous Dion pt. documented in this encounter Plan of Treatment Upcoming Encounters Date Type Specialty Care Team Description 02/08/2020 Office Visit Family Medicine Elias Duarte DO [address] [place] [address] 04/19/2020 Office Visit Neurology Tone Chavez DO [address] [facility] [address] [phone] 08/15/2020 Office Visit Cardiology Kings Camargo MD [address] [place] [address] Health Maintenance Due Date Last Done [...] Diagnosis Parkinson's disease (HCC)- Primary Paralysis agitans Paresthesia Disturbance of skin sensation Tremor Abnormal involuntary movements documented in this encounter Advance Directives Documents on File Type Date Recorded Patient Pomologist 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"
--- OUTSIDE RECORDS SUMMARY | 2023-05-29 00:01 | External Medical Summary | Summary of Care ---
Author Name Unknown Organization [facility] Address [facility] [place] [address] Care Team Providers Care Fur Buyer Name Role Phone Elias Duarte DO Primary Care Provider Reason for Visit * Reason Comments Health Maintenance Encounter Details Date Type Department Care Team Description 08/04/2019 Telephone Family Practice [facility] [address] [facility] [place] [address] Elias Duarte DO [address] [facility] [place] [address] [phone] Health Maintenance Allergies No Known Allergiesdocumented as of this encounter (statuses as of 08/04/2019) Medications Medication Sig Dispensed Refills Start Date [...] metoprolol succinate XL (TOPROL XL) 25 MG [id number]:Symp tomatic PVCs Take 1 Tab by mouth [...] at bedtime 30 Cap 5 06/10/2019 Active documented as of this encounter (statuses as of 08/04/2019) Active Problems Problem Noted Date Parkinson's disease [...] as of this encounter (statuses as of 08/04/2019) Resolved Problems Problem Noted Date Resolved Date [...] as of this encounter (statuses as of 08/04/2019) Immunizations Name Administration Dates Next Due DTaP - Dipth/Tet/Acell Pertussis 07/14/2009 Pneumococcal Conjugate Vacc, 13 Valent (Prevnar) 03/06/2016 Pneumococcal Polysaccharide PPV23 (Pneumovax) 08/19/2013 Seasonal Influenza, Quadriva lent, No Preserve, 6 Mons & Above, IM 06/19/2018,07/23/2017 Seasonal Influenza, Quadriva lent, No Preserve, IM 06/28/2015 Seasonal Influenza, Trivalen t, with Preserve, 3yr & Above, Split 05/04/2014,05/25/2013,07/24/2012,04/23,05/01/2010 TDAP (age 10 and older)(Boostrix) 02/12/2014 Varicella Zoster Vaccine (Adult) 02/12/2014 documented as of this encounter Social History [...] emmanuel ilable. documented as of this encounter Miscellaneous Notes * Telephone Encounter - Mary Velazquez LPN - 08/04/2019 2:23 PM EST Patient contacted for Care Gaps Comprehensive Care Outreach. Last Office Visit: 01/14/2019 Next Office Visit: No Future Appointments Health Maintenance Topic Date Due Zoster Vaccines (2 of 3) 04/09/2014 COLONOSCOPY-EVERY 3 YRS AGES 18-100 12/27/2018 Influenza Vaccine (FLU shot) (1) 03/22/2019 Outreach action taken: Contacted: Outreach not indicated - Other OV today documented in this encounter Plan of Treatment Upcoming Encounters Date Type Specialty Care Team Description 08/04/2019 Office Visit Family Medicine Elias Duarte DO [address] [place] [address] [phone] 08/18/2019 Office Visit Cardiology Kings Camargo MD [address] [place] [address] [phone] 08/28/2019 Office Visit Neurology Lilibeth Serrato CRNP [address] [place] [address] [phone] Health Maintenance Due Date Last Done Comments Zoster Vaccines (2 of 3) 04/09/2014 02/12/2014 COLONOSCOPY-EVERY 3 YRS AGES 18-100 12/27/2018 12/28/2015, 12/28/2015, 10/09/2012, Additional history exists Influenza Vaccine (FLU shot) (#1) 2019 06/19/2018, 07/23/2017, 06/28/2015, Additional history exists DIABETES SCREEN EVERY 3 YRS-AGE 45 AND ABOVE 08/15/2020 08/15/2017, 08/15/2017, 03/12/2016, Additional history exists LIPID SCREEN EVERY 5 YRS-MEN AGE 35-75 08/18/2023 08/18/2018, 08/15/2017, 03/12/2016, Additional history exists DTaP,Tdap,and Td Vaccines (3 - Td) 02/13/2024 02/12/2014, 07/14/2009 Pneumococcal Vaccine: 65+ Years Completed 03/06/2016, 08/19/2013 ABDOMINAL AORTIC ANEURYSM (AAA) SCREENING Completed 07/25/2017 MENINGOCOCCAL (MENACTRA) Aged Out No longer eligible based on patient's age to complete this topic documented as of this encounter Implants Not on filedocumented as of this encounter Advance Directives Documents on File Type Date Recorded 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
--- OUTSIDE RECORDS SUMMARY | 2023-05-29 00:01 | External Medical Summary | Summary of Care ---
Author Name Unknown Organization [facility] Address [facility] [place] [address] Care Team Providers Care Legal Biller Name Role Phone Elias Cleary DO Primary Care Provider [phone] Reason for Visit * Reason Comments Follow Up 3 month return Medication Administration Flu and/or Pne umo Inj Immunizations Shingrix Encounter Details Date Type Department Care Team Description 08/04/2019 Office Visit Family Practice [facility] [address] [facility] [place] [address] Elias Cleary DO [address] [facility] [place] [address] [phone] Parkinson's disease (HCC)*; Lumbar degenerative disc disease; Mixed dyslipidemia; Asymptomatic PVCs; Need for prophylactic vaccination and inoculation against influenza; Need for vaccination for zoster; Need for hepatitis C screening test Allergies No Known Allergiesdocumented as of this encounter (statuses as of 08/12/2019) Medications Medication Sig Dispensed Refills Start Date End Date Status ASPIRIN 325 MG PO TABS 1 tab at bedtime 0 Active carbidopa-levodopa 25-100 mg per tab (SINEMET) 25-100 MG per tabletIndications: Balance problem,Gait abnormality,Tremor ,Bradykinesia Take 1 Tab by mouth 3 times a day. Follow instructions in handout 90 Tab 12 09/29/2018 Active finasteride (PROSCAR) 5 MG TabletIndications: BPH with obstruction/lower urinary tract symptoms Take 1 Tab by mouth daily. 30 Tab 5 12/05/2018 Active pravastatin (PRAVACHOL) 20 MG TabletIndications: Mixed dyslipidemia,PVC (premature ventricular contraction) TAKE 1 TABLET EACH NIGHT AT BEDTIME 90 Tab 3 12/08/2018 Active metoprolol succinate XL (TOPROL XL) 25 MG [id number]:Sy mptomatic PVCs Take 1 Tab by mouth daily. 90 Tab 3 03/26/2019 Active LINZESS 290 MCG CapsuleIndications :Irritable bowel syndrome with constipation TAKE 1 CAPSULE BY MOUTH DAILY BEFORE BREAKFAST 30 Cap 5 05/01/2019 Active DULoxetine (CYMBALTA) 30 MG CPEPIndications:Karla mbar degenerative disc disease,Episode of recurrent major depressive disorder, unspecified depression episode severity (HCC) TAKE 1 CAPSULE BY MOUTH DAILY. DO NOT CUT, CRUSH OR CHEW 30 Cap 5 05/08/2019 Active tamsulosin (FLOMAX) 0.4 MG CapsuleIndications :BPH with obstruction/lower urinary tract symptoms Take 1 tablet at bedtime 30 Cap 5 06/10/2019 Active zoster vac recomb adjuvanted (SHINGRIX) 50 MCG/0.5ML injectionIndicatio ns:Need for vaccination for zoster Inject 0.5 mL into a large muscle now and repeat dose in 60 to 180 days 1 Each 1 08/04/2019 Active zoster vac recomb adjuvanted (SHINGRIX) 50 MCG/0.5ML injectionIndicatio ns:Need for vaccination for zoster Inject 0.5 mL into a large muscle now and repeat dose in 60 to 180 days 1 Each 1 08/04/2019 0 Discontinued documented as of this encounter (statuses as of 08/12/2019) Active Problems Problem Noted Date Parkinson's disease [...] as of this encounter (statuses as of 08/12/2019) Resolved Problems Problem Noted Date Resolved Date [...] as of this encounter (statuses as of 08/12/2019) Immunizations Name Administration Dates Next Due DTaP [...] Start Travel End No recent travel history emmaunel ilable. documented as of this encounter Last Filed Vital Signs Vital Sign Reading Time Taken Comments Blood Pressure 115/64 08/04/2019 4:15 PM EST Pulse 74 08/04/2019 4:15 PM EST Temperature 36.2 C (97.1 F) 08/04/2019 4:15 PM ES T Respiratory Rate 16 08/04/2019 4:15 PM EST Oxygen Saturation - - Inhaled Oxygen Concentration - - Weight 78.9 kg (174 lb) 08/04/2019 4:15 PM EST Height 177.8 cm (5' 10") 08/04/2019 4:15 PM EST Body Mass Index 24.97 08/04/2019 4:15 PM EST documented in this encounter Progress Notes * Elias Cleary DO - 08/11/2019 12:03 AM EST Chief Complaint Patient presents with Follow Up 3 month return Medication Administration Flu and/or Pneumo Inj Immunizations Shingrix HPI: Patient is a 69-year-old male with a history of Parkinson's disease, lumbar degenerative disc disease, dyslipidemia and asymptomatic PVCs. Patient feels generally well and is following a diet exercise program. Patient is tolerating medication well with no adverse effects. Patient complains of tremor improved. Patient denies headache, blurred vision, slurred speech, muscle weakness or numbness. Patient denies chest pain, palpitations shortness of breath or edema. Patient denies fatigue fever chills or sweats. Patient denies nasal congestion sore throat or earache. Patient denies cough or sputum. Patient denies abdominal pain nausea vomiting diarrhea constipation. Patient denies urinary frequency dysuria or hematuria. Patient denies joint swelling or rash. Review systems otherwise negative Past Medical History: Medication [...] Current Outpatient Medications Medication Sig Dispense Refill zoster vac recomb adjuvanted (SHINGRIX) 50 MCG/0.5ML injection Inject 0.5 mL into a large muscle now and repeat dose in 60 to 180 days 1 Each 1 tamsulosin (FLOMAX) 0.4 MG Capsule Take 1 [...] performed by Dale Whitlock MD at ENDOSCOPY [facility] COLONOSCOPY, DIAGNOSTIC (RECTUM) 12/28/2015 adenomatous polyp, diverticulosis, repeat 3 yrs/COLONOSCOPY FLEXIBLE PROXIMAL DIAGNOSTIC performed by Enid John MD at ENDOSCOPY [facility] COLONOSCOPY/REMOVE LESION 04/27/2010 2 polyps [...] Last attempt to quit: 07/22/1974 Years since quittin.0 Smokeless tobacco: Never Used Substance Use Topics Alcohol use: No Review of Systems: No nausea, vomiting or diarrhea. No chest pain or shortness of breath, No fatigue. No fevers, chillor night sweats. All other ROS examined in detail and are negative except as documented in HPI. All other systems reviewed and are negative. Objective: BP 115/64 | Pulse 74 | Temp (Src) 97.1 (Tympanic) | Resp 16 | Ht 5' 10" (1.778m) | Wt 174 lbs (78.926kg) | BMI 24.97 kg/m | BSA 1.97 m Physical Exam: General: alert, healthy and [...] rate & rhythm, no murmurs and no gallops, occasional ectopy Lungs: chest symmetric with normal AP diameter, no chest deformities noted, no chest wall tenderness, lungs clear to auscultation Pulses: carotid=2/4 w/o bruits Abdomen: abdomen soft, non-tender, no masses, no hepatosplenomegaly, no rebound or guarding Back: back symmetric, no curvature, no costovertebral angle tenderness, range of motion is normal Extremities: no edema, no clubbing, no cyanosis Neuro Exam: alert & oriented x 3 with fluent speech, no focal motor/sensory deficits, gait normal Skin: skin color, texture, turgor are normal, no rashes or significant lesions ASSESSMENT/PLAN: Parkinson's disease (HCC) (Primary) - BASIC METAB PANEL, BMP; Future; Expected date: 08/04/2019 - CBC/DIFF; Future; Expected date: 08/04/2019 Continue present medication Follow with neurologist Home physical therapy exercise program Lumbar degenerative disc disease Home therapeutic exercise program Avoid strenuous activities, no heavy lifting Mixed dyslipidemia - LIPID PANEL; Future; Expected date: 08/04/2019 - HEP FUNCTION PANEL; Future; Expected date: 08/04/2019 Continue present medication Low-fat low-cholesterol high-fiber diet Asymptomatic PVCs - BASIC METAB PANEL, BMP; Future; Expected date: 08/04/2019 - CBC/DIFF; Future; Expected date: 08/04/2019 Continue present medication Avoid [id number] decongestants and caffeinated beverages Need for prophylactic vaccination and inoculation against influenza - INFLUENZA VACC, IIV, SUBUNIT, ADJUVANTED, IM Need for vaccination for zoster - zoster vac recomb adjuvanted (SHINGRIX) 50 MCG/0.5ML injection; Inject 0.5 mL into a large musclenow and repeat dose in 60 to 180 days - ZOSTER VACCINE RECOMB, 2 DOSE, IM (SHINGRIX) Need for hepatitis C screening test - HCV SCREEN WITH CONFIRMATION; Future; Expected date: 08/04/2019 Follow Up: Return in about 6 months (around 02/02/2020). Elias Cleary DO 08/11/19 * Kaylan Borrero LPN - 08/04/2019 5:10 PM EST Pre-Administration Time Out Procedure Performed: Yes Patient Identified (Ask Name/Date of ): Yes Does the patient have a fever greater than 101 degrees today? No Patient allergic to latex? No Has the patient ever fainted after receiving an injection? No VFC Stock: No Immunization(s) verified: Yes, Immunization Name: Flu,Shingrix VIS Sheet(s) given: Yes Verified Side and Site: Yes Verified Shot(s) with Parent(s)/Patient: Yes documented in this encounter Nursing Notes * Kaylan Borrero LPN - 08/04/2019 4:21 PM EST The patient has been properly identified by confirmation of name and date of . Chief Complaint Patient presents with Follow Up 3 month return documented in this encounter Plan of Treatment Upcoming Encounters Date Type Specialty Care Team Description 08/18/2019 Office Visit Cardiology Kings Camargo MD [address] [place] [address] [phone] 08/28/2019 Office Visit Neurology Lilibeth Serrato CRNP [address] [place] [address] [phone] 02/08/2020 Office Visit Family Medicine Elias Cleary DO [address] [place] [address] [phone] Scheduled Orders Name Type Priority Associated Diagnoses Orde r Schedule HCV SCREEN WITH CONFIRMATION Lab Routine Need for hepatitis C screening test Expected: 08/04/2019 (Approximate), Expires: 08/03/2020 LIPID PANEL Lab Routine Mixed dyslipidemia Expected: 08/04/2019 (Approximate), Expires: 08/03/2020 BASIC METAB PANEL, BMP Lab Routine Parkinson's disease (HCC) Asymptomatic PVCs Expected: 08/04/2019 (Approximate), Expires: 08/03/2020 CBC/DIFF Lab Routine Parkinson's disease (HCC) Asymptomatic PVCs Expected: 08/04/2019 (Approximate), Expires: 08/04/2020 HEP FUNCTION PANEL Lab Routine Mixed dyslipidemia Expected: 08/04/2019 (Approximate), Expires: 08/03/2020 Health Maintenance Due Date Last Done Comments [...] Degeneration of lumbar or lumbosacral intervertebral disc Mixed dyslipidemia Mixed hyperlipidemia Asymptomatic PVCs Other premature beats Need for prophylactic vaccination and inoculation against influenza Need for vaccination for zoster Need for prophylactic vaccination and inoculation against other viral diseases Need for hepatitis C screening test Special screening examination for other specified viral diseases documented in this encounter Advance Directives Documents on File Type Date Recorded Patient 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
--- OUTSIDE RECORDS SUMMARY | 2023-05-29 00:01 | External Medical Summary | Summary of Care ---
Author Name Unknown Organization [place] [address] Care Team Providers Care Computer Numeric Control Setter Name Role Phone Elias Duarte DO Primary Care Provider Reason for Visit * Reason Comments eRx-Medication Refill Encounter Details Date Type Department Care Team Description 11/23/2019 Refill Family Practice [facility] [address] [place] [address] [facility] [address] [phone] Irritable bowel syndrome with constipation Allergies No Known Allergiesdocumented as of this encounter (statuses as of 11/24/2019) Medications Medication Sig Dispensed Refills Start Date End Date Status ASPIRIN 325 MG PO TABS 1 tab at bedtime 0 Active finasteride (PROSCAR) 5 MG TabletIndications: BPH with obstruction/lower urinary tract symptoms Take 1 Tab by mouth daily. 30 Tab 5 12/05/2018 Active pravastatin (PRAVACHOL) 20 MG TabletIndications: Mixed dyslipidemia,PVC (premature ventricular contraction) TAKE 1 TABLET EACH NIGHT AT BEDTIME 90 Tab 3 12/08/2018 Active metoprolol succinate XL (TOPROL XL) 25 MG [id number]:Sy mptomatic PVCs Take 1 Tab by mouth daily. 90 Tab 3 03/26/2019 Active DULoxetine (CYMBALTA) 30 MG CPEPIndications:Karla mbar [...] BEFORE BREAKFAST 30 Cap 5 11/24/2019 Active LINZESS 290 MCG CapsuleIndications :Irritable bowel syndrome with constipation TAKE 1 CAPSULE BY MOUTH DAILY BEFORE BREAKFAST 30 Cap 5 05/01/2019 0 Discontinued documented as of this encounter (statuses as of 11/24/2019) Active Problems Problem Noted Date Parkinson's disease [...] as of this encounter (statuses as of 11/24/2019) Resolved Problems Problem Noted Date Resolved Date [...] as of this encounter (statuses as of 11/24/2019) Immunizations Name Administration Dates Next Due DTaP [...] Telephone Encounter - Elias Duarte DO - 11/24/2019 8:17 AM EDT Signed Prescriptions: Disp Refills LINZESS 290 MCG Capsule 30 Cap 5 Sig: TAKE 1 CAPSULE BY MOUTH DAILY BEFORE BREAKFAST Authorizing Provider: ELIAS DUARTE * Telephone Encounter - Randolph Stevenson CPhT - 11/23/2019 6:52 PM EDT Pending Prescriptions: Disp Refills LINZESS 290 MCG Capsule [Pharmacy Med Nam*30 Cap 5 Sig: TAKE 1 CAPSULE BY MOUTH DAILY BEFORE BREAKFAST * Telephone Encounter - Randolph Stevenson CPhT - 11/23/2019 6:51 PM EDT Pending Prescriptions: Disp Refills LINZESS 290 MCG Capsule [Pharmacy Med Nam*30 Cap 5 Sig: TAKE 1 CAPSULE BY MOUTH DAILY BEFORE BREAKFAST Last Office/Telemedicine Visit: No Previous Office/Telemedicine Visits Next Office Visit: No Future Appointments If no future appointments scheduled, and last appointment is greater than a year ago, please schedule patient for a follow-up appointment Last date the medication was ordered: 05/01/2019 Pharmacy: E HERMILA MURRAY @[facility] Is this request for a controlled substance?No Urine Drug Screen:No results found for this or any previous visit. Patient Phone Numbers Labs: Lab Results Component Value Date/Time CREAT 0.8 08/18/2018 12:44 PM POTASSIUM 4.7 08/15/2017 08:12 AM TSH 1.66 08/15/2017 08:12 AM LDLCALC 61 08/18/2018 12:44 PM ALT 9 (L) 08/15/2017 08:12 AM HGBA1C 5.4 08/15/2017 08:12 AM Omar Schumacher ([facility]) [facility] 11/23/2019, 6:51 PM documented in this encounter Plan of Treatment Upcoming Encounters Date Type Specialty Care Team Description 01/15/2020 Office Visit Neurology Tone Chavez, DO [address] [facility] [place] [address] [phone] 02/08/2020 Office Visit Family Medicine Elias Duarte DO [address] [place] [address] [phone] 08/15/2020 Office Visit Cardiology Kings Camargo MD [address] [place] [address] [phone] Health Maintenance Due Date Last Done Comments [...] Documents on File Type Date Recorded Patient Coat Joiner 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
--- OUTSIDE RECORDS SUMMARY | 2023-05-29 00:01 | External Medical Summary | Summary of Care ---
Author Name Unknown Organization [place] [address] Care Team Providers Care Pumper Brewery Name Role Phone Elias Duarte DO Primary Care Provider Reason for Visit * Reason Comments eRx-Medication Refill Encounter Details Date Type Department Care Team Description 10/20/2019 Refill Neurology [facility] [address] [place] [address] Lilibeth Serrato CRNP [address] [place] [address] [phone] Balance problem; Gait abnormality; Tremor; Bradykinesia Allergies No Known Allergiesdocumented as of this encounter (statuses as of 10/20/2019) Medications Medication Sig Dispensed Refills Start Date [...] metoprolol succinate XL (TOPROL XL) 25 MG [id number]:Sy mptomatic PVCs Take 1 Tab by mouth [...] IN HANDOUT 90 Tab 12 10/20/2019 Active carbidopa-levodopa 25-100 mg per tab (SINEMET) 25-100 MG per tabletIndications: Balance problem,Gait abnormality,Tremor ,Bradykinesia Take 1 Tab by mouth 3 times a day. Follow instructions in handout 90 Tab 12 09/29/2018 0 Discontinued documented as of this encounter (statuses as of 10/20/2019) Active Problems Problem Noted Date Parkinson's disease [...] as of this encounter (statuses as of 10/20/2019) Resolved Problems Problem Noted Date Resolved Date [...] as of this encounter (statuses as of 10/20/2019) Immunizations Name Administration Dates Next Due DTaP [...] Telephone Encounter - Tone Chavez DO - 10/20/2019 3:28 PM EDT Signed Prescriptions: Disp Refills carbidopa-levodopa 25-100 mg per tab (SINE*90 Tab 12 Sig: TAKE 1 TABLET 3 TIMES A DAY . FOLLOW INSTRUCTIONS IN HANDOUT Authorizing Provider: TONE CHAVEZ * Telephone Encounter - Carmina London MED ASSIST - 10/20/2019 2:22 PM EDT Pending Prescriptions: Disp Refills carbidopa-levodopa 25-100 mg per tab (SIN*90 Tab 12 Sig: TAKE 1 TABLET 3 TIMES A DAY . FOLLOW INSTRUCTIONS IN HANDOUT * Telephone Encounter - Javier Guy LPN - 10/20/2019 2:17 PM EDT Pending Prescriptions: Disp Refills carbidopa-levodopa 25-100 mg per tab (SIN*90 Tab 12 Sig: TAKE 1 TABLET 3 TIMES A DAY . FOLLOW INSTRUCTIONS IN HANDOUT * Telephone Encounter - Javier Guy LPN - 10/20/2019 2:17 PM EDT Pending Prescriptions: Disp Refills carbidopa-levodopa 25-100 mg per tab (SIN*90 Tab 12 Sig: TAKE 1 TABLET 3 TIMES A DAY . FOLLOW INSTRUCTIONS IN HANDOUT Last Office Visit: 05/28/2019 Next Office Visit: 10/30/2019 Scheduled Provider(s): YOLI Baumann Last date the medication was ordered: 09/29/2018 Patient Active Problem List Diagnosis Code Mixed dyslipidemia E78.2 Sarcoidosis of lung (HCC) D86.0 Routine medical exam Z00.00 Special screening for malignant neoplasms, colon Z12.11 Need for prophylactic vaccination against Streptococcus pneumoniae (pneumococcus) Z23 Irritable bowel syndrome with constipation K58.1 PVC (premature ventricular contraction) I49.3 Dizziness R42 Palpitations R00.2 Episode of recurrent major depressive disorder ([facility]) F33.9 Parkinson's disease ([facility]) G20 Lumbar degenerative disc disease M51.36 Labs: CREATININE(mg/dL) Gabriel Dt/Tm Resulted Value Status 08/18/18 12:44P 08/18/18 0.8 FINAL POTASSIUM(mmol/L) Gabriel Dt/Tm Resulted Value Status 08/15/17 8:12A 08/15/17 4.7 FINAL TSH(uIU/mL) Gabriel Dt/Tm Resulted Value Status 08/15/17 8:12A 08/15/17 1.66 FINAL LDL (CALCULATED)(mg/dL) Gabriel Dt/Tm Resulted Value Status 08/18/18 12:44P 08/18/18 61 FINAL 08/15/17 8:12A 08/15/17 119 FINAL ALT(U/L) Gabriel Dt/Tm Resulted Value Status 08/15/17 8:12A 08/15/17 9* FINAL Hemoglobin AIC Results: HEMOGLOBIN, A1C(%) Gabriel Dt/Tm Resulted Value Status 08/15/17 8:12A 08/15/17 5.4 FINAL documented in this encounter Plan of Treatment Upcoming Encounters Date Type Specialty Care Team Description 10/30/2019 Office Visit Neurology Lilibeth Serrato CRNP [address] [place] [address] 02/08/2020 Office Visit Family Medicine Elias Duarte DO [address] [place] [address] 08/15/2020 Office Visit Cardiology Kings Camargo MD [...] Documents on File Type Date Recorded Patient Contact Center Director 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
--- OUTSIDE RECORDS SUMMARY | 2023-05-29 00:01 | External Medical Summary | Summary of Care ---
Author Name Unknown Organization [place] [address] Care Team Providers Care Forward Air Controller/Air Officer Name Role Phone Elias Duarte DO Primary Care Provider Reason for Visit * Reason Comments eRx-Medication Refill Encounter Details Date Type Department Care Team Description 12/29/2019 Refill Cardiology, [facility] [address] [place] [address] Mine Camargo MD 132 [facility] [place] [address] [phone] Mixed dyslipidemia; PVC (premature ventricular contraction) Allergies No Known Allergiesdocumented as of this encounter (statuses as of 12/29/2019) Medications Medication Sig Dispensed Refills Start Date End Date Status ASPIRIN 325 MG PO TABS 1 tab at bedtime 0 Active finasteride (PROSCAR) 5 MG TabletIndications: BPH with obstruction/lower urinary tract symptoms Take 1 Tab by mouth daily. 30 Tab 5 12/05/2018 Active metoprolol succinate XL (TOPROL XL) 25 MG [id number]:Sy mptomatic PVCs Take 1 Tab by mouth [...] AT BEDTIME 90 Tab 3 12/29/2019 Active pravastatin (PRAVACHOL) 20 MG TabletIndications: Mixed dyslipidemia,PVC (premature ventricular contraction) TAKE 1 TABLET EACH NIGHT AT BEDTIME 90 Tab 3 12/08/2018 0 Discontinued documented as of this encounter (statuses as of 12/29/2019) Active Problems Problem Noted Date Parkinson's disease [...] as of this encounter (statuses as of 12/29/2019) Resolved Problems Problem Noted Date Resolved Date [...] as of this encounter (statuses as of 12/29/2019) Immunizations Name Administration Dates Next Due DTaP [...] Telephone Encounter - Mine Camargo MD - 12/29/2019 12:52 PM EDT Signed Prescriptions: Disp Refills pravastatin (PRAVACHOL) 20 MG Tablet 90 Tab 3 Sig: TAKE 1 TALBET EACH NIGHT AT BEDTIME Authorizing Provider: MINE CAMARGO * Telephone Encounter - Garth William RN - 12/29/2019 10:19 AM EDT Pending Prescriptions: Disp Refills pravastatin (PRAVACHOL) 20 MG Tablet [Pha*90 Tab 3 Sig: TAKE 1 TALBET EACH NIGHT AT BEDTIME * Telephone Encounter - Garth William RN - 12/29/2019 10:18 AM EDT Pending Prescriptions: Disp Refills pravastatin (PRAVACHOL) 20 MG Tablet [Pha*90 Tab 3 Sig: TAKE 1 TALBET EACH NIGHT AT BEDTIME Last Office/Telemedicine Visit: 08/18/2019 Next Office Visit: 08/15/2020 Scheduled Provider(s): Mine Camargo MD Last medication order date:12/08/2018 Have you choosen a preferred pharm?? yes [...] Team Description 01/15/2020 Office [facility]avez [facility] [address] [facility] [address] [phone] 02/08/2020 Office Visit Family Medicine Elias Duarte DO [address] [place] [address] 08/15/2020 Office Visit Cardiology Mine Camargo MD [address] [place] [address] [phone] Health Maintenance Due Date Last Done Comments [...] Documents on File Type Date Recorded Patient Dobby Looms Pegger 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
--- OUTSIDE RECORDS SUMMARY | 2023-05-29 00:01 | External Medical Summary | Summary of Care ---
Author Name Unknown Organization [place] [address] Care Team Providers Care Controls Operator Molded Goods Name Role Phone Elias Duarte DO Primary Care Provider Reason for Visit * Reason Comments Return Neuro PD Encounter Details Date Type Department Care Team Description 05/28/2019 Office Visit Neurology [facility] [address] [place] [address] Lilibeth Serrato CRNP [address] [place] [address] [phone] Parkinson's disease (HCC)*; Balance problem; Tremor; Gait abnormality; Bradykinesia Allergies No Known Allergiesdocumented as of this encounter (statuses as of 11/05/2019) Medications Medication Sig Dispensed Refills Start Date End Date Status ASPIRIN 325 MG PO TABS 1 tab at bedtime 0 Active finasteride (PROSCAR) 5 MG TabletIndications :BPH with obstruction/lower urinary tract symptoms Take 1 Tab by mouth daily. 30 Tab 5 9 Active pravastatin (PRAVACHOL) 20 MG TabletIndications :Mixed dyslipidemia,PVC (premature ventricular contraction) TAKE 1 TABLET EACH NIGHT AT BEDTIME 90 Tab 3 9 Active metoprolol succinate XL (TOPROL XL) 25 MG [id number]:S ymptomatic PVCs Take 1 Tab by mouth daily. 90 Tab 3 9 Active LINZESS 290 MCG CapsuleIndication s:Irritable bowel syndrome with constipation TAKE 1 CAPSULE BY MOUTH DAILY BEFORE BREAKFAST 30 Cap 5 9 Active DULoxetine (CYMBALTA) 30 MG CPEPIndications:L umbar degenerative disc disease,Episode of recurrent major depressive disorder, unspecified depression episode severity (HCC) TAKE 1 CAPSULE BY MOUTH DAILY. DO NOT CUT, CRUSH OR CHEW 30 Cap 5 9 Active carbidopa-levodop a 25-100 mg per tab (SINEMET) 25-100 MG per tabletIndications :Balance problem,Gait abnormality,Tremo r,Bradykinesia Take 1 Tab by mouth 3 times a day. Follow instructions in handout 90 Tab 12 9 10/20/19 20 Discontinued tamsulosin (FLOMAX) 0.4 MG CapsuleIndication s:BPH with obstruction/lower urinary tract symptoms Take 1 tablet at bedtime 30 Cap 5 9 06/10/20 19 Discontinued(Ref ill) documented as of this encounter (statuses as of 11/05/2019) Active Problems Problem Noted Date Parkinson's disease [...] as of this encounter (statuses as of 11/05/2019) Resolved Problems Problem Noted Date Resolved Date [...] as of this encounter (statuses as of 11/05/2019) Immunizations Name Administration Dates Next Due DTaP [...] PM EDT documented as of this encounter Last Filed Vital Signs Vital Sign Reading Time Taken Comments Blood Pressure 120/74 05/28/2019 1:41 PM EST Pulse 72 05/28/2019 1:41 PM EST Temperature - - Respiratory Rate 16 05/28/2019 1:41 PM EST Oxygen Saturation - - Inhaled Oxygen Concentration - - Weight 81.6 kg (179 lb 14.4 oz) 05/28/2019 1:41 PM EST Height - - Body Mass Index 25.81 01/14/2019 4:01 PM EDT documented in this encounter Progress Notes * Lilibeth Serrato CRNP - 05/28/2019 1:49 PM EST HISTORY & PHYSICAL EXAMINATION - NEUROLOGY Name: Jacques Alicea Date: 05/28/2019 Time: 1:49 PM Referring Provider: Elias Duarte DO Chief Complaint Patient presents with Return Neuro PD Source of HPI The patient was the historian, and he is reliable SUBJECTIVE: Jacques Alicea is a 69 year old patient returns today for follow up for parkinson's. Hasnot been working out and is missing about 25% of Carbidopa- Levodopa doses, He usually forgets the afternoon dose. . Denies any falls diffuclty swallowing REVIEW OF SYSTEMS: ROS: Constitutional: negative Respiratory:negative Cardiovascular:negative GI:constipation on going :negative Pain level: 0/10 All other pertinent review of system findings are noted in HPI Histories were reviewed with the patient and are as stated below. Allergies: Patient has no known allergies. Problem list: Patient Active Problem List Diagnosis Code Mixed [...] Lumbar degenerative disc disease M51.36 Current Outpatient Medications: Current Outpatient Medications Medication Sig Dispense Refill DULoxetine (CYMBALTA) 30 MG CPEP TAKE 1 [...] tablet Take 1 Tab by mouth 3 times a day. Follow instructions in handout 90 Tab 12 ASPIRIN 325 MG PO TABS 1 tab at bedtime OBJECTIVE: Physical Examination: BP 120/74 | Pulse 72 | Resp 16 | Wt 179 lbs 14.4 oz (81.602kg) | BMI 25.81 kg/m | BSA 2.01 m General appearance: healthy, alert, no distress Constitutional: Appearance normally developed,well nourished,non-obese,no deformities,well groomed Respiratory: normal effort NEUROLOGIC EXAMINATION: Mental Status Exam: alert,oriented to time, place, person,normal recent memory,normal remote memory,normal attention span,normal concentration,normal language,normal fund of knowledge Cranial Nerves: CN 2,3 - PERRLA,visual mccabe full CN 3, 4, 6 - Extra-ocular Movements Intact,no nystagmus CN 5 - Facial sensation intact and equal bilaterally CN 7 - no facial assymetry CN 8 - hearing grossly intact CN 9, 10, 12 - tongue and uvula midline,(+) gag reflex CN 11- good shoulder shrug Coordination: normal to hbskdq-fcxy-sagwzg, qfwf-ssgt-beze, and rapid arm movements Gait/station: Gait appears to be slow but steadyl, no shuffling, slight reduced arm swing Motor Strength: upper extremity normal,lower extremity normal,no atrophy,no abnormal movement,tone normal LABORATORY: Recent labs reviewed Differentials/ IMPRESSION: discussed the importance of taking medications and not skipping doses hewill work on being more consistent and we will evaluate need to increase at next visit once taking consistently ASSESSMENT/PLAN: Parkinson's disease (HCC) (Primary) Balance problem Tremor Gait abnormality Bradykinesia Follow Up: Return in about 3 months (around 08/28/2019). Education / Consultation - Topics covered 1. Importance of compliance with chosen treatment options Medical Decision Making: Number of Diagnosis or Treatment Options:Established problem; worsening Amount or Complexity of Data Reviewed: Review/ order lab Review/ order medicine Risk of Complications related to disease process anticipated between today and next encounter: Moderate: Prescription Drug Management: Consulted with physician: Daniel Lin MD. Copy of note sent to PCP and Referring Provider. YOLI Rosas, [facility] Neurology [facility] [address] [place] [address] 05/28/2019 1:49 PM (This note was completed using the dictation program Fluency Direct. As such, there may be misspellings, word substitutions, or other variations that should not change the essence of the clinical content of this encounter note.If there is need for further clarification, please direct questions to the provider listed above.) documented in this encounter Nursing Notes * Carmina London MED ASSIST - 05/28/2019 1:40 PM EST Patient verified identity by spelling of last name and date. Chief Complaint Patient presents with Return Neuro PD documented in this encounter Plan of Treatment Upcoming Encounters Date Type Specialty Care Team Description 11/26/2019 Office Visit Neurology Lilibeth Serrato CRNP [address] [facility] [address] [phone] 02/08/2020 Office Visit Family Medicine Elias Duarte DO [address] [place] [address] 08/15/2020 Office Visit Cardiology Kings Camargo MD [address] [place] [address] Health Maintenance Due Date Last Done [...] Diagnosis Parkinson's disease (HCC)- Primary Paralysis agitans Balance problem Other symptoms involving nervous and musculoskeletal systems Tremor Abnormal involuntary movements Gait abnormality Abnormality of gait Bradykinesia Abnormal involuntary movements documented in this encounter Advance Directives Documents on File Type Date Recorded Patient Data Analytics Chief Scientist 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"
--- OUTSIDE RECORDS SUMMARY | 2023-05-29 00:01 | External Medical Summary | Summary of Care ---
Author Name Unknown Organization [place] [address] Care Team Providers Care Aoc Operations Intelligence Officer Name Role Phone Elias Duarte DO Primary Care Provider [phone] Reason for Visit * Reason Comments Appointment Canceled Encounter Details Date Type Department Care Team Description 11/13/2019 Telephone Neurology [facility] [address] [place] [address] Lilibeth Serrato CRNP [address] [place], [place] [id number] Appointment Canceled Allergies No Known Allergiesdocumented as of this encounter (statuses as of 11/17/2019) Medications Medication Sig Dispensed Refills Start Date [...] metoprolol succinate XL (TOPROL XL) 25 MG [id number]:Symp tomatic PVCs Take 1 Tab by mouth [...] as of this encounter (statuses as of 11/17/2019) Active Problems Problem Noted Date Parkinson's disease [...] as of this encounter (statuses as of 11/17/2019) Resolved Problems Problem Noted Date Resolved Date [...] as of this encounter (statuses as of 11/17/2019) Immunizations Name Administration Dates Next Due DTaP [...] Telephone Encounter - Isa Obando OSA - 11/17/2019 11:40 AM EDT Pt wants scheduled in a few mths in the office * Telephone Encounter - Isa Obando OSA - 11/13/2019 5:26 PM EDT LM pt needs resched for tele-med and new provider documented in this encounter Plan of Treatment Upcoming Encounters Date Type Specialty Care Team Description 02/08/2020 Office Visit Family Medicine Elias Duarte DO [address] [place] [address] [phone] 08/15/2020 Office Visit Cardiology Kings Camargo MD [address] [place] [address] [phone] Health Maintenance Due Date Last Done Comments [...] Documents on File Type Date Recorded Patient Road Conductor 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
--- OUTSIDE RECORDS SUMMARY | 2023-05-29 00:01 | External Medical Summary | Summary of Care ---
Author Name Unknown Organization [place] [address] Care Team Providers Care Lead Sales Consultant Name Role Phone Elias Duarte DO Primary Care Provider [phone] Encounter Details Date Type Department Care Team Description 08/14/2019 Orders Only Cardiology, [facility] 132 [facility] [place] [address] Kings Camargo [facility] [address] [facility] [address] [phone] PVC (premature ventricular contraction)* Allergies No Known Allergiesdocumented as of this encounter (statuses as of 08/14/2019) Medications Medication Sig Dispensed Refills Start Date [...] metoprolol succinate XL (TOPROL XL) 25 MG [id number]:Symp tomatic PVCs Take 1 Tab by mouth [...] as of this encounter (statuses as of 08/14/2019) Active Problems Problem Noted Date Parkinson's disease [...] as of this encounter (statuses as of 08/14/2019) Resolved Problems Problem Noted Date Resolved Date [...] as of this encounter (statuses as of 08/14/2019) Immunizations Name Administration Dates Next Due DTaP [...] emmanuel ilable. documented as of this encounter Plan of Treatment Upcoming Encounters Date Type Specialty Care Team Description 08/18/2019 Office Visit Cardiology Kings Camargo MD [address] [place] [address] [phone] 08/28/2019 Office Visit Neurology Lilibeth Serrato CRNP 200 [facility] [place] [address] [phone] 02/08/2020 Office Visit Family Medicine Elias Duarte DO [address] [place] [address] [phone] Scheduled Orders Name Type Priority Associated Diagnoses Orde r Schedule EKG EKG Routine PVC (premature ventricular contraction) Expected: 08/18/2019, Expires: 10/13/2019 Health Maintenance Due Date Last Done Comments [...] Documents on File Type Date Recorded Patient Jet Operator 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
--- OUTSIDE RECORDS SUMMARY | 2023-05-29 00:01 | External Medical Summary | Summary of Care ---
Author Name Unknown Organization [place] [address] Care Team Providers Care Ux Designer Name Role Phone Elias Duarte DO Primary Care Provider Reason for Visit * Reason Comments Medication Refill Encounter Details Date Type Department Care Team Description 12/30/2019 Refill [facility] Practice [facility] [address] [facility] [address] Eli[facility] [address] [facility] [place] [address] [phone] BPH with obstruction/lower urinary tract symptoms Allergies No Known Allergiesdocumented as of this encounter (statuses as of 12/30/2019) Medications Medication Sig Dispensed Refills Start Date End Date Status ASPIRIN 325 MG PO TABS 1 tab at bedtime 0 Active metoprolol succinate XL (TOPROL XL) 25 MG [id number]:Sy mptomatic PVCs Take 1 Tab by mouth [...] mouth daily. 30 Tab 5 12/30/2019 Active finasteride (PROSCAR) 5 MG TabletIndications: BPH with obstruction/lower urinary tract symptoms Take 1 Tab by mouth daily. 30 Tab 5 12/05/2018 0 Discontinue d(Refill) documented as of this encounter (statuses as of 12/30/2019) Active Problems Problem Noted Date Parkinson's disease [...] as of this encounter (statuses as of 12/30/2019) Resolved Problems Problem Noted Date Resolved Date [...] as of this encounter (statuses as of 12/30/2019) Immunizations Name Administration Dates Next Due DTaP [...] Telephone Encounter - Elias Duarte DO - 12/30/2019 9:47 PM EDT Signed Prescriptions: Disp Refills finasteride (PROSCAR) 5 MG Tablet 30 Tab 5 Sig: Take 1 Tab by mouth daily. Authorizing Provider: ELIAS DUARTE * Telephone Encounter - Israel Almonte OSA - 12/30/2019 9:01 AM EDT Pending Prescriptions: Disp Refills finasteride (PROSCAR) 5 MG Tablet 30 Tab 5 Sig: Take 1 Tab by mouth daily. Last Office/Telemedicine Visit: 08/04/2019 Next Office Visit: 02/08/2020 Scheduled Provider(s): Elias Duarte DO If no future appointments scheduled, and last appointment is greater than a year ago, please schedule patient for a follow-up appointment Last date the medication was ordered: 11/23/2019 [facility] Is this request for a controlled [...] Visit Neurology Tone Chavez DO [address] [facility] [address] [phone] 02/08/2020 Office Visit Family Medicine Elias Duarte DO [address] [place] [address] [phone] 08/15/2020 Office Visit Cardiology Kings Camargo MD [address] [place] [address] [phone] Health Maintenance Due Date Last Done Comments [...] Documents on File Type Date Recorded Patient Handkerchief Presser 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
--- OUTSIDE RECORDS SUMMARY | 2023-05-29 00:02 | External Medical Summary | Summary of Care ---
Author Name Unknown Organization [place] [address] Care Team Providers Care Crane Chaser Name Role Phone Elias Duarte DO Primary Care Provider [phone] Reason for Visit * Reason Comments eRx-Medication Refill Encounter Details Date Type Department Care Team Description 05/07/2019 Refill Family Practice [facility] 132 [facility] [place] [address] Elias Duarte DO 132 [facility] [place] [address] [phone] Lumbar degenerative disc disease; Episode of recurrent major depressive disorder, unspecified depression episode severity (HCC) Allergies No Known Allergiesdocumented as of this encounter (statuses as of 05/08/2019) Medications Medication Sig Dispensed Refills Start Date [...] metoprolol succinate XL (TOPROL XL) 25 MG [id number]:Sy mptomatic PVCs Take 1 Tab by mouth daily. 90 Tab 3 03/26/2019 Active tamsulosin (FLOMAX) 0.4 MG CapsuleIndications :BPH with obstruction/lower urinary tract symptoms Take 1 tablet at bedtime 30 Cap 5 03/30/2019 Active LINZESS 290 MCG CapsuleIndications :Irritable bowel syndrome with constipation TAKE 1 CAPSULE BY MOUTH DAILY BEFORE BREAKFAST 30 Cap 5 05/01/2019 Active DULoxetine (CYMBALTA) 30 MG CPEPIndications:Karla mbar degenerative disc disease,Episode of recurrent major depressive disorder, unspecified depression episode severity (HCC) TAKE 1 CAPSULE BY MOUTH DAILY. DO NOT CUT, CRUSH OR CHEW 30 Cap 5 05/08/2019 Active DULoxetine (CYMBALTA) 30 MG CPEPIndications:Karla mbar degenerative disc disease,Episode of recurrent major depressive disorder, unspecified depression episode severity (HCC) Take 1 Cap by mouth daily. Do not cut, crush or chew 30 Cap 5 07/29/2018 9 Discontinued documented as of this encounter (statuses as of 05/08/2019) Active Problems Problem Noted Date Parkinson's disease [...] as of this encounter (statuses as of 05/08/2019) Resolved Problems Problem Noted Date Resolved Date [...] as of this encounter (statuses as of 05/08/2019) Immunizations Name Administration Dates Next Due DTaP [...] Notes * Telephone Encounter - Alexandrea Agustin RPh - 05/08/2019 8:58 AM EDT Signed Prescriptions: Disp Refills DULoxetine (CYMBALTA) 30 MG CPEP 30 Cap 5 Sig: TAKE 1 CAPSULE BY MOUTH DAILY. DO NOT CUT, CRUSH OR CHEWAuthorizing Provider: Kelsey DUARTE User: ALEXANDREA AGUSTIN documented in this encounter Plan of Treatment Upcoming Encounters Date Type Specialty Care Team Description 05/28/2019 Office Visit Neurology Lilibeth Serrato CRNP [address] [place] [address] [phone] 07/17/2019 Office Visit Family Medicine Elias Duarte DO [address] [place], [place] [address] [phone] 08/18/2019 Office Visit Cardiology Kings Camargo MD [address] [place] [address] [phone] Health Maintenance Due Date Last Done Comments [...] Documents on File Type Date Recorded Patient Clinical Practitioner Expl anation Advance Directives and Living Will 05/31/2015 12:00 AM ADVANCE DIRECTIVE Advanced Directive Advanced Directive Advanced Directive Advanced Directive Advanced Directive Advanced Directive
--- OUTSIDE RECORDS SUMMARY | 2023-05-29 00:02 | External Medical Summary | Summary of Care ---
Author Name Unknown Organization [place] [address] Care Team Providers Care Ammonia Still Operator Name Role Phone Felicia Elias Primary Care Provider [phone] Reason for Visit * Reason Comments Medication Refill Encounter Details Date Type Department Care Team Description 03/30/2019 Refill Family Practice [facility] [address] [facility] [address] Nam Wagoner, [facility] 200 [facility] [place] [place] [address] [phone] BPH with obstruction/lower urinary tract symptoms Allergies No Known Allergiesdocumented as of this encounter (statuses as of 03/30/2019) Medications Medication Sig Dispensed Refills Start Date End Date Status ASPIRIN 325 MG PO TABS 1 tab at bedtime 0 Active DULoxetine (CYMBALTA) 30 MG CPEPIndications:Karla mbar degenerative disc disease,Episode of recurrent major depressive disorder, unspecified depression episode severity (HCC) Take 1 Cap by mouth daily. Do not cut, crush or chew 30 Cap 5 07/29/2018 Active carbidopa-levodopa 25-100 mg per tab (SINEMET) 25-100 MG per tabletIndications: Balance problem,Gait abnormality,Tremor ,Bradykinesia Take 1 Tab by mouth 3 times a day. Follow instructions in handout 90 Tab 12 09/29/2018 Active Linaclotide (LINZESS) 290 MCG CapsuleIndications :Irritable bowel syndrome with constipation Take 1 Cap by mouth daily before breakfast. 30 Cap 5 10/03/2018 Active finasteride (PROSCAR) 5 MG TabletIndications: BPH with obstruction/lower urinary tract symptoms Take 1 Tab by mouth daily. 30 Tab 5 12/05/2018 Active pravastatin (PRAVACHOL) 20 MG TabletIndications: Mixed dyslipidemia,PVC (premature ventricular contraction) TAKE 1 TABLET EACH NIGHT AT BEDTIME 90 Tab 3 12/08/2018 Active metoprolol succinate XL (TOPROL XL) 25 MG [id number]:Sy mptomatic PVCs Take 1 Tab by mouth daily. 90 Tab 3 03/26/2019 Active tamsulosin (FLOMAX) 0.4 MG CapsuleIndications :BPH with obstruction/lower urinary tract symptoms Take 1 tablet at bedtime 30 Cap 5 03/30/2019 Active tamsulosin (FLOMAX) 0.4 MG CapsuleIndications :BPH with obstruction/lower urinary tract symptoms Take 1 tablet at bedtime 30 Cap 5 03/03/2019 9 Discontinued documented as of this encounter (statuses as of 03/30/2019) Active Problems Problem Noted Date Parkinson's disease [...] as of this encounter (statuses as of 03/30/2019) Resolved Problems Problem Noted Date Resolved Date [...] as of this encounter (statuses as of 03/30/2019) Immunizations Name Administration Dates Next Due DTaP [...] Telephone Encounter - Elias Duarte DO - 03/30/2019 11:03 AM EDT Signed Prescriptions: Disp Refills tamsulosin (FLOMAX) 0.4 MG Capsule 30 Cap 5 Sig: Take 1 tablet at bedtime Authorizing Provider: ELIAS DUARTE * Telephone Encounter - Charlotte Hahn LPN - 03/30/2019 10:51 AM EDT Pending Prescriptions: Disp Refills tamsulosin (FLOMAX) 0.4 MG Capsule 30 Cap 5 Sig: Take 1 tablet at bedtime * Telephone Encounter - Charlotte Hahn LPN - 03/30/2019 10:51 AM EDT Pending Prescriptions: Disp Refills tamsulosin (FLOMAX) 0.4 MG Capsule 30 Cap 5 Sig: Take 1 tablet at bedtime Last Office Visit: 01/14/2019 Next Office Visit: 07/17/2019 Scheduled Provider(s): Elias Duarte DO Last date the medication was ordered: 03/03/19 Patient Active Problem List Diagnosis Code Mixed dyslipidemia E78.2 Sarcoidosis of lung (HCC) D86.0 Routine medical exam Z00.00 Special screening for malignant neoplasms, colon Z12.11 Need for prophylactic vaccination against Streptococcus pneumoniae (pneumococcus) Z23 Irritable bowel syndrome with constipation K58.1 PVC (premature ventricular contraction) I49.3 Dizziness R42 Palpitations R00.2 Episode of recurrent major depressive disorder (HCC) F33.9 Parkinson's disease ([facility]) G20 Lumbar degenerative disc disease M51.36 Labs: [...] Value Status 08/15/17 8:12A 08/15/17 5.4 FINAL * Telephone Encounter - Nam Wagoner RPh - 03/30/2019 10:29 AM EDT Please e-prescribe to [facility]. Thank You. documented in this encounter Plan of Treatment Upcoming Encounters Date Type Specialty Care Team Description 05/28/2019 Office Visit Neurology Lilibeth Serrato CRNP 200 [place] [address] [phone] 07/17/2019 Office Visit Family Medicine [facility] [address] [phone] 08/18/2019 Office Visit Cardiology Kings Camargo MD [address] [place] [address] [phone] Health Maintenance Due Date Last Done Comments [...] Vaccines (3 - Td) 02/13/2024 02/12/2014, 07/14/2009 PNEUMOCOCCAL ADULT 65 YRS AND OVER Completed 03/06/2016, 08/19/2013 ABDOMINAL AORTIC ANEURYSM (AAA) [...] Documents on File Type Date Recorded Patient Design Printing Machine Set Up Operator Expl anation Advance Directives and Living Will 05/31/2015 12:00 AM ADVANCE DIRECTIVE Advanced Directive Advanced Directive Advanced Directive Advanced Directive Advanced Directive Advanced Directive
--- OUTSIDE RECORDS SUMMARY | 2023-05-29 00:02 | External Medical Summary | Summary of Care ---
Author Name Unknown Organization [place] [address] Care Team Providers Care Dna Analyst Name Role Phone Elias Duarte DO Primary Care Provider Reason for Visit * Reason Comments eRx-Medication Refill Encounter Details Date Type Department Care Team Description 04/30/2019 Refill Family Practice [facility] [address] [place] [address] Elias [facility] DO [address] [facility] [address] [phone] Irritable bowel syndrome with constipation Allergies No Known Allergiesdocumented as of this encounter (statuses as of 05/01/2019) Medications Medication Sig Dispensed Refills Start Date [...] metoprolol succinate XL (TOPROL XL) 25 MG [id number]:Sy mptomatic PVCs Take 1 Tab by mouth daily. 90 Tab 3 03/26/2019 Active tamsulosin (FLOMAX) 0.4 MG CapsuleIndications :BPH with obstruction/lower urinary tract symptoms Take 1 tablet at bedtime 30 Cap 5 03/30/2019 Active LINZESS 290 MCG CapsuleIndications :Irritable bowel syndrome with constipation TAKE 1 CAPSULE BY MOUTH DAILY BEFORE BREAKFAST 30 Cap 5 05/01/2019 Active Linaclotide (LINZESS) 290 MCG CapsuleIndications :Irritable bowel syndrome with constipation Take 1 Cap by mouth daily before breakfast. 30 Cap 5 10/03/2018 9 Discontinued documented as of this encounter (statuses as of 05/01/2019) Active Problems Problem Noted Date Parkinson's disease [...] as of this encounter (statuses as of 05/01/2019) Resolved Problems Problem Noted Date Resolved Date [...] as of this encounter (statuses as of 05/01/2019) Immunizations Name Administration Dates Next Due DTaP [...] Telephone Encounter - Elias Duarte DO - 05/01/2019 11:35 AM EDT Signed Prescriptions: Disp Refills LINZESS 290 MCG Capsule 30 Cap 5 Sig: TAKE 1 CAPSULE BY MOUTH DAILY BEFORE BREAKFAST Authorizing Provider: ELIAS DUARTE * Telephone Encounter - Elisabeth Benitez, laboratory equipment installer - 05/01/2019 8:31 AM EDT Pending Prescriptions: Disp Refills LINZESS 290 MCG Capsule [Pharmacy Med Name*30 Cap 5 Sig: TAKE 1 CAPSULE BY MOUTH DAILY BEFORE BREAKFAST * Telephone Encounter - Elisabeth Benitez PHARM Tech - 05/01/2019 8:31 AM EDT Pending Prescriptions: Disp Refills LINZESS 290 MCG Capsule [Pharmacy Med Name*30 Cap 5 Sig: TAKE 1 CAPSULE BY MOUTH DAILY BEFORE BREAKFAST Last Office Visit: No Previous Office Visits Next Office Visit: No Future Appointments If no future appointments scheduled, and last appointment is greater than a year ago, please schedule patient for a follow-up appointment Last date the medication was ordered: 10/03/18 [facility] Is this request for a controlled [...] Office Visit Neurology Lilibeth Serrato CRNP 200 [place] [address] [phone] 07/17/2019 Office Visit Family Medicine Elias Duarte DO [address] [place] [address] [phone] 08/18/2019 Office Visit Cardiology Kings Camargo MD [address] [place] [address] [phone] Health Maintenance Due Date Last Done Comments [...] Documents on File Type Date Recorded Patient Telemarketer Supervisor Expl anation Advance Directives and Living Will 05/31/2015 12:00 AM ADVANCE DIRECTIVE Advanced Directive Advanced Directive Advanced Directive Advanced Directive Advanced Directive Advanced Directive
--- OUTSIDE RECORDS SUMMARY | 2023-05-29 00:02 | External Medical Summary | Summary of Care ---
Author Name Unknown Organization [place] [address] Care Team Providers Care Riveter Name Role Phone Elias Duarte DO Primary Care Provider Reason for Visit * Reason Comments Medication Refill Encounter Details Date Type Department Care Team Description 06/10/2019 Refill Family Practice [facility] 132 [facility] [place] [address] Elias Duarte DO 132 [facility] [place] [address] [phone] Lumbar degenerative disc disease; Episode of recurrent major depressive disorder, unspecified depression episode severity (HCC); BPH with obstruction/lower urinary tract symptoms Allergies No Known Allergiesdocumented as of this encounter (statuses as of 06/10/2019) Medications Medication Sig Dispensed Refills Start Date [...] metoprolol succinate XL (TOPROL XL) 25 MG [id number]:Sy mptomatic PVCs Take 1 Tab by mouth [...] at bedtime 30 Cap 5 06/10/2019 Active tamsulosin (FLOMAX) 0.4 MG CapsuleIndications :BPH with obstruction/lower urinary tract symptoms Take 1 tablet at bedtime 30 Cap 5 03/30/2019 9 Discontinue d(Refill) documented as of this encounter (statuses as of 06/10/2019) Active Problems Problem Noted Date Parkinson's disease [...] as of this encounter (statuses as of 06/10/2019) Resolved Problems Problem Noted Date Resolved Date [...] as of this encounter (statuses as of 06/10/2019) Immunizations Name Administration Dates Next Due DTaP [...] Telephone Encounter - Elias Duarte DO - 06/10/2019 5:54 PM EST Signed Prescriptions: Disp Refills tamsulosin (FLOMAX) 0.4 MG Capsule 30 Cap 5 Sig: Take 1 tablet at bedtime Authorizing Provider: ELIAS DUARTE * Telephone Encounter - Arabella Pillai OSA - 06/10/2019 3:06 PM EST Pending Prescriptions: Disp Refills tamsulosin (FLOMAX) 0.4 MG Capsule 30 Cap 5 Sig: Take 1 tablet at bedtime Last Office Visit: 01/14/2019 Next Office Visit: 07/24/2019 Scheduled Provider(s): Elias Duarte DO If no future appointments scheduled, and last appointment is greater than a year ago, please schedule patient for a follow-up appointment Last date the medication was ordered: 03-30-2019 Pharmacy: [facility] Is this request for [...] Encounters Date Type Specialty Care Team Description 07/24/2019 Office Visit Family Medicine Elias Duarte DO [address] [place] [address] [phone] 08/18/2019 Office Visit Cardiology Kings Camargo MD [address] [place] [address] [phone] 08/28/2019 Office Visit [facility]rology [facility] [address] [facility] [address] [phone] Health Maintenance Due Date Last Done Comments [...] Documents on File Type Date Recorded Patient Pesticide Chemist 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
--- OUTSIDE RECORDS SUMMARY | 2023-05-29 00:02 | External Medical Summary | Summary of Care ---
Author Name Unknown Organization [place] [address] Care Team Providers Care Celery Stripper Name Role Phone Elias Duarte DO Primary Care Provider Reason for Visit * Reason Comments Medication Refill Encounter Details Date Type Department Care Team Description 03/26/2019 [facility]ill [facility] [address] [facility] [address] Elias Duarte DO 132 [facility] [place] [address] [phone] Symptomatic PVCs Allergies No Known Allergiesdocumented as of this encounter (statuses as of 03/26/2019) Medications Medication Sig Dispensed Refills Start Date [...] AT BEDTIME 90 Tab 3 12/08/2018 Active tamsulosin (FLOMAX) 0.4 MG CapsuleIndications :BPH with obstruction/lower urinary tract symptoms Take 1 tablet at bedtime 30 Cap 5 03/03/2019 Active metoprolol succinate XL (TOPROL XL) 25 MG [id number]:Sy mptomatic PVCs Take 1 Tab by mouth daily. 90 Tab 3 03/26/2019 Active metoprolol succinate XL (TOPROL XL) 25 MG [id number]:Sy mptomatic PVCs Take 1 Tab by mouth daily. 90 Tab 3 07/31/2017 9 Discontinued documented as of this encounter (statuses as of 03/26/2019) Active Problems Problem Noted Date Parkinson's disease [...] as of this encounter (statuses as of 03/26/2019) Resolved Problems Problem Noted Date Resolved Date [...] as of this encounter (statuses as of 03/26/2019) Immunizations Name Administration Dates Next Due DTaP [...] encounter Miscellaneous Notes * Telephone Encounter - Eilas Duarte DO - 03/26/2019 10:25 PM EDT Signed Prescriptions: Disp Refills metoprolol succinate XL (TOPROL XL) 25 MG *90 Tab 3 Sig: Take 1 Tab by mouth daily. Authorizing Provider: ELIAS DUARTE * Telephone Encounter - Arabella Pillai OSA - 03/26/2019 3:52 PM EDT Pending Prescriptions: Disp Refills metoprolol succinate XL (TOPROL XL) 25 MG*90 Tab 3 Sig: Take 1 Tab by mouth daily. Last Office Visit: 01/14/2019 Next Office Visit: 07/17/2019 Scheduled Provider(s): Elias Duarte DO If no future appointments scheduled, and last appointment is greater than a year ago, please schedule patient for a follow-up appointment Last date the medication was ordered: 07-31-2017 Pharmacy: [facility] [address] [place] Is this request [...] Office Visit Neurology Lilibeth Serrato CRNP 200 [place] [address] [phone] 07/17/2019 Office Visit Family Medicine Elias Duarte DO [address] [place] [address] [phone] 08/18/2019 Office Visit Cardiology Kings Camargo MD [address] [place] [address] [phone] Health Maintenance Due Date Last Done Comments [...] on File Type Date Recorded Patient Metal Stamper Expl anation Advance Directives and Living Will 05/31/2015 12:00 AM ADVANCE DIRECTIVE Advanced Directive Advanced Directive Advanced Directive Advanced Directive Advanced Directive Advanced Directive
--- OUTSIDE RECORDS SUMMARY | 2023-05-29 00:03 | External Medical Summary | Summary of Care ---
Author Name Unknown Organization [place] [address] Care Team Providers Care Supervisor Orchard Name Role Phone Felicia Pam Primary Care Provider Reason for Visit * Reason Comments Medication Refill Encounter Details Date Type Department Care Team Description 03/02/[address] [facility] [address] [facility] [address] Nam Wagoner, [facility] 200 [facility] [address] [phone] BPH with obstruction/lower urinary tract symptoms Allergies No Known Allergiesdocumented as of this encounter (statuses as of 03/03/2019) Medications Medication Sig Dispensed Refills Start Date End Date Status ASPIRIN 325 MG PO TABS 1 tab at bedtime 0 Active metoprolol succinate XL (TOPROL XL) 25 MG [id number]:Sy mptomatic PVCs Take 1 Tab by mouth daily. 90 Tab 3 07/31/2017 Active DULoxetine (CYMBALTA) 30 MG CPEPIndications:Karla mbar [...] at bedtime 30 Cap 5 03/03/2019 Active tamsulosin (FLOMAX) 0.4 MG CapsuleIndications :BPH with obstruction/lower urinary tract symptoms Take 1 tablet at bedtime 30 Cap 5 02/26/2019 9 Discontinued documented as of this encounter (statuses as of 03/03/2019) Active Problems Problem Noted Date Parkinson's disease [...] as of this encounter (statuses as of 03/03/2019) Resolved Problems Problem Noted Date Resolved Date [...] as of this encounter (statuses as of 03/03/2019) Immunizations Name Administration Dates Next Due DTaP [...] encounter Miscellaneous Notes * Telephone Encounter - Pam Duarte DO - 03/03/2019 4:20 PM EDT Signed Prescriptions: Disp Refills tamsulosin (FLOMAX) 0.4 MG Capsule 30 Cap 5 Sig: Take 1 tablet at bedtime Authorizing Provider: PAM DUARTE * Telephone Encounter - India Waterman LPN - 03/03/2019 2:04 PM EDT Pending Prescriptions: Disp Refills tamsulosin (FLOMAX) 0.4 MG Capsule 30 Cap 5 Sig: Take 1 tablet at bedtime * Telephone Encounter - India Waterman LPN - 03/03/2019 2:02 PM EDT Pending Prescriptions: Disp Refills tamsulosin (FLOMAX) 0.4 MG Capsule 30 Cap 5 Sig: Take 1 tablet at bedtime Last Office Visit: 01/14/2019 Next Office Visit: 07/17/2019 Scheduled Provider(s): Pam Duarte DO If no future appointments scheduled, and last appointment is greater than a year ago, please schedule patient for a follow-up appointment Last date the medication was ordered: 02/26/2019 - Phone order in [facility] Patient Phone Numbers Labs: Lab Results Component Value Date/Time CREAT 0.8 08/18/2018 12:44 PM POTASSIUM 4.7 08/15/2017 08:12 AM TSH 1.66 08/15/2017 08:12 AM LDLCALC 61 08/18/2018 12:44 PM ALT 9 (L) 08/15/2017 08:12 AM HGBA1C 5.4 08/15/2017 08:12 AM * Telephone Encounter - Nam Wagoner RPh - 03/02/2019 3:14 PM EDT Please e-prescribe to [facility]. Thank You. documented in this encounter Plan of Treatment Upcoming Encounters Date Type Specialty Care Team Description 05/28/2019 Office Visit Neurology Lilibeth Serrato CRNP [address] [place] [address] [phone] 07/17/2019 Office Visit Family Medicine Pam Duarte DO 132 [facility] [place] [address] [phone] 08/18/2019 Office Visit Cardiology Kings Camargo MD [address] [address] [phone] Health Maintenance Due Date Last Done Comments [...] Documents on File Type Date Recorded Patient Manager Field Investigations Expl anation Advance Directives and Living Will 05/31/2015 12:00 AM ADVANCE DIRECTIVE Advanced Directive Advanced Directive Advanced Directive Advanced Directive Advanced Directive Advanced Directive
--- OUTSIDE RECORDS SUMMARY | 2023-05-29 00:03 | External Medical Summary | Summary of Care ---
Author Name Unknown Organization [place] [address] Care Team Providers Care Tube Carrier Name Role Phone Elias Duarte DO Primary Care Provider [phone] Reason for Visit * Reason Comments Return Neuro Parkinson's Encounter Details Date Type Department Care Team Description 01/07/2019 Office Visit Neurology [facility] [address] [place] [address] Lilibeth Serrato CRNP [address] [place] [address] [phone] Parkinson's disease (HCC)* Allergies No Known Allergiesdocumented as of this encounter (statuses as of 02/21/2019) Medications Medication Sig Dispensed Refills Start Date End Date Status ASPIRIN 325 MG PO TABS 1 tab at bedtime 0 Active metoprolol succinate XL (TOPROL XL) 25 MG [id number]:Symp tomatic PVCs Take 1 Tab by mouth daily. 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 30 Cap 5 10/03/2018 Active finasteride (PROSCAR) 5 MG TabletIndications:BP H with obstruction/lower urinary tract symptoms Take 1 Tab by mouth daily. 30 Tab 5 12/05/2018 Active pravastatin (PRAVACHOL) 20 MG TabletIndications:Mi xed dyslipidemia,PVC (premature ventricular contraction) TAKE 1 TABLET EACH NIGHT AT BEDTIME 90 Tab 3 12/08/2018 Active documented as of this encounter (statuses as of 02/21/2019) Active Problems Problem Noted Date Parkinson's disease [...] as of this encounter (statuses as of 02/21/2019) Resolved Problems Problem Noted Date Resolved Date [...] as of this encounter (statuses as of 02/21/2019) Immunizations Name Administration Dates Next Due DTaP [...] Sign Reading Time Taken Comments Blood Pressure 124/78 01/07/2019 3:46 PM EDT Pulse 74 01/07/2019 3:46 PM EDT Temperature - - Respiratory Rate 16 01/07/2019 3:46 PM EDT Oxygen Saturation - - Inhaled Oxygen Concentration - - Weight 81.4 kg (179 lb 6.4 oz) 01/07/2019 3:46 P M EDT Height - - Body Mass Index 25.74 10/27/2018 1:35 PM EDT documented in this encounter Progress Notes * Lilibeth Serrato CRNP - 01/07/2019 3:52 PM EDT HISTORY & PHYSICAL EXAMINATION - NEUROLOGY Name: Jacques Alicea Date: 01/07/2019 Time: 3:52 PM Referring Provider: Elias Duarte DO Chief Complaint Patient presents with Return Neuro Parkinson's Source of HPI The patient was the historian, and he is reliable SUBJECTIVE: Jacques Alicea is a 69 year old patient returns today for follow up for parkinsons, doing will on current dose of medications, is wondering if he should do PT, Denies any issues fall, swollowing, GI, . REVIEW OF SYSTEMS: Constitutional: No fever, no chills, nounintentional weight change Skin: No jaundice, no rash, no itching Eye: No recent vision problems, no diplopia, no blurred vision, no tearing, no Redness Ears, nose and throat:: No tinnitus, no voice changes, difficulty swallowing, No sore throat or sinus congestion No changes in hearing, no changes in smell (hypoosmia, anosmia) Respiratory : No shortness of breath, no cough, no wheezing Cardiovascular : No chest pain, no chest tightness, no palpitations, no dyspnea on exertion Gastrointestinal/ Genitourinary:: No loss of appetite, No abdominal pain, no nausea, no vomiting, no diarrhea, no constipation. No dysuria, no hematuria, no recent UTI. No incontinence All other pertinent review of system findings are noted in HPI Histories were reviewed with the patient and are as stated below. Allergies: Patient has no known allergies. Problem list: Patient Active Problem List Diagnosis Code Mixed dyslipidemia E78.2 Sarcoidosis of lung ([facility]) D86.0 Routine medical exam Z00.00 Special screening for malignant neoplasms, colon Z12.11 Need for prophylactic vaccination against Streptococcus pneumoniae (pneumococcus) Z23 Irritable bowel syndrome with constipation K58.1 PVC (premature ventricular contraction) I49.3 Dizziness R42 Palpitations R00.2 Episode of recurrent major depressive disorder ([facility]) F33.9 Parkinson's disease ([facility]) G20 Lumbar degenerative disc disease M51.36 Current Outpatient Medications: Current Outpatient Medications Medication Sig Dispense Refill pravastatin (PRAVACHOL) 20 MG Tablet TAKE 1 TABLET EACH NIGHT AT BEDTIME 90 Tab 3 finasteride (PROSCAR) 5 MG Tablet Take 1 Tab by mouth daily. 30 Tab 5 Linaclotide (LINZESS) 290 MCG Capsule Take 1 Cap by mouth daily before breakfast. 30 Cap 5 carbidopa-levodopa 25-100 mg per tab (SINEMET) 25-100 MG per tablet Take 1 Tab by mouth 3 times a day. Follow instructions in handout 90 Tab 12 DULoxetine (CYMBALTA) 30 MG CPEP Take 1 Cap by mouth daily. Do not cut, crush or chew 30 Cap 5 tamsulosin (FLOMAX) 0.4 MG Capsule TAKE 1 CAPSULE BY MOUTH ONCE A DAY 30 Cap 5 metoprolol succinate XL (TOPROL XL) 25 MG TB24 Take 1 Tab by mouth daily. 90 Tab 3 ASPIRIN 325 MG PO TABS 1 tab at bedtime OBJECTIVE: Physical Examination: BP 124/78 | Pulse 74 | Resp 16 | Wt 179 lbs 6.4 oz (81.375kg) | BMI 25.74 kg/m | BSA 2.01 m General appearance: healthy, alert, no distress NEUROLOGIC EXAMINATION: MS: AAOx3 Ophthalmoscopic: Disc Flat, Normal fundus, no vessel changes, exudates, hemorrhages CN: EOM intact, PERRLA, no nystagmus, sensation in CN V intact and equal, strength to mastication intact, strength in CN VII intact and equal, hearing intact to finger rub, speech without dysarthria,tongue midline, shoulder shrug Motor: biceps/triceps/ wrist flexion/extension 5/5 RUE, 5/5 LUE; hip, knee, ankle flexion/extension5/5 RLE, 5/5 LLE Sensation: intact x4 extremities to light touch Reflexes: 2+ patellar & biceps Ataxia: no pronator drift; negative Romberg, finger to nose intact, gait with slight reduce arm swing Movement: mild tremor in hands at rest LABORATORY: HEMOGLOBIN, A1C(%) Gabriel Dt/Tm Resulted Value Status 08/15/17 8:12A 08/15/17 5.4 FINAL LIPID PANEL Gabriel Dt/Tm Resulted Value Status HOURS FASTING (hours) 08/18/18 12:44P 08/18/18 >8 HOURS F TRIGLYCERIDES (mg/dL) 08/18/18 12:44P 08/18/18 247* F CHOLESTEROL (mg/dL) 08/18/18 12:44P 08/18/18 154 F HDL (mg/dL) 08/18/18 12:44P 08/18/18 44 F CHOL/HDL RATIO ( ) 08/18/18 12:44P 1/28/19 3.5 F LDL (CALCULATED) (mg/dL) 08/18/18 12:44P 08/18/18 61 F TSH(uIU/mL) Gabriel Dt/Tm Resulted Value Status 08/15/17 8:12A 08/15/17 1.66 FINAL No BASIC orders found ALT Gabriel Dt/Tm Resulted Value Status ALT (U/L) 10/20/14 7:09A 10/20/14 13 F No AST orders found CBC/DIFF Gabriel Dt/Tm Resulted Value Status WBC (K/uL) 08/15/17 8:12A 08/15/17 4.96 F RBC (M/uL) 08/15/17 8:12A 08/15/17 4.96 F HGB (g/dL) 08/15/17 8:12A 08/15/17 15.7 F HCT (%) 08/15/17 8:12A 08/15/17 46.6 F MCV (fL) 08/15/17 8:12A 08/15/17 94.0 F MCH (pg) 08/15/17 8:12A 08/15/17 31.7 F MCHC (g/dL) 08/15/17 8:12A 08/15/17 33.7 F RDW (%) 08/15/17 8:12A 08/15/17 12.4 F PLATELET COUNT (K/uL) 08/15/17 8:12A 08/15/17 178 F MPV (fL) 08/15/17 8:12A 08/15/17 10.2 F NEUTS (%) 08/15/17 8:12A 08/15/17 62.3 F LYMPHS (%) 08/15/17 8:12A 08/15/17 26.0 F MONOS (%) 08/15/17 8:12A 08/15/17 9.9 F EOS (%) 08/15/17 8:12A 08/15/17 1.4 F BASOS (%) 08/15/17 8:12A 08/15/17 0.4 F ABS. NEUTS (K/uL) 08/15/17 8:12A 08/15/17 3.09 F ABS. LYMPHS (K/uL) 08/15/17 8:12A 08/15/17 1.29 F ABS. MONOS (K/uL) 08/15/17 8:12A 08/15/17 0.49 F ABS. EOS (K/uL) 08/15/17 8:12A 08/15/17 0.07 F ABS. BASOS (K/uL) 08/15/17 8:12A 08/15/17 0.02 F No INR components found Recent labs reviewed Review of prior Studies: No recent imaging available. Differentials/ IMPRESSION: no changes in current medication ICD-10-CM 1. Parkinson's disease (HCC) G20 ASSESSMENT/PLAN: Parkinson's disease (HCC) (Primary) Education / Consultation - Topics covered 1. Instructions for management (treatment) and/or follow up Medical Decision Making: Number of Diagnosis or Treatment Options:Established problem; stable or improved Amount or Complexity of Data Reviewed: Review/ order lab Review/ order medicine Risk of Complications related to disease process anticipated between today and next encounter: Moderate: Prescription Drug Management: Consulted with physician: Daniel Lin MD. Copy of note sent to PCP. YOLI Rosas, [facility] Neurology [place] [address] 01/07/2019 3:52 PM (This note was completed using the dictation program Fluency Direct. As such, there may be misspellings, word substitutions, or other variations that should not change the essence of the clinical content of this encounter note.If there is need for further clarification, please direct questions to the provider listed above.) documented in this encounter Nursing Notes * Carmina London MED ASSIST - 01/07/2019 3:45 PM EDT Patient verified identity by spelling of last name and date. Chief Complaint Patient presents with Return Neuro Parkinson's documented in this encounter Plan of Treatment Upcoming Encounters Date Type Specialty Care Team Description 05/28/2019 Office Visit Neurology Lilibeth Serrato CRNP [address] [address] [phone] 07/17/2019 Office Visit Family Medicine Elias Duarte DO [address] [place] [address] 08/18/2019 Office Visit Cardiology Kings Camargo MD [...] Documents on File Type Date Recorded Patient Destination Imagination Coordinator Expl anation Advance Directives and Living Will 05/31/2015 12:00 AM ADVANCE DIRECTIVE Advanced Directive Advanced Directive Advanced Directive Advanced Directive Advanced Directive Advanced Directive"
--- OUTSIDE RECORDS SUMMARY | 2023-05-29 00:03 | External Medical Summary | Summary of Care ---
Author Name Unknown Organization [place] [address] Care Team Providers Care Fabric Inspector Name Role Phone Elias Duarte DO Primary Care Provider Reason for Visit * Reason Comments Medication Refill Encounter Details Date Type Department Care Team Description 02/26/2019 Refill Family Practice [facility] [address] [place] [address] [facility] DO [address] [facility] [place] [address] [phone] BPH with obstruction/lower urinary tract symptoms Allergies No Known Allergiesdocumented as of this encounter (statuses as of 02/26/2019) Medications Medication Sig Dispensed Refills Start Date End Date Status ASPIRIN 325 MG PO TABS 1 tab at bedtime 0 Active metoprolol succinate XL (TOPROL XL) 25 MG [id number]:Sy mptomatic PVCs Take 1 Tab by mouth [...] tablet at bedtime 30 Cap 5 02/26/2019 Active tamsulosin (FLOMAX) 0.4 MG CapsuleIndications :BPH with obstruction/lower urinary tract symptoms TAKE 1 CAPSULE BY MOUTH ONCE A DAY 30 Cap 5 12/04/2017 9 Discontinued documented as of this encounter (statuses as of 02/26/2019) Active Problems Problem Noted Date Parkinson's disease [...] as of this encounter (statuses as of 02/26/2019) Resolved Problems Problem Noted Date Resolved Date [...] as of this encounter (statuses as of 02/26/2019) Immunizations Name Administration Dates Next Due DTaP [...] Telephone Encounter - Elias Duarte DO - 02/26/2019 2:18 PM EDT Signed Prescriptions: Disp Refills tamsulosin (FLOMAX) 0.4 MG Capsule 30 Cap 5 Sig: Take 1 tablet at bedtime Authorizing Provider: ELIAS DUARTE * Telephone Encounter - India Palma OSA - 02/26/2019 10:13 AM EDT Pending Prescriptions: Disp Refills tamsulosin (FLOMAX) 0.4 MG Capsule 30 Cap 5 Sig: Take 1 Cap by mouth daily. Last Office Visit: 01/14/2019 Next Office Visit: 07/17/2019 Scheduled Provider(s): Elias Duarte DO If no future appointments scheduled, and last appointment is greater than a year ago, please schedule patient for a follow-up appointment Last date the medication was ordered: 11/06/18 Patient Phone Numbers Labs: Lab Results Component Value Date/Time CREAT 0.8 08/18/2018 12:44 PM POTASSIUM 4.7 08/15/2017 08:12 AM TSH 1.66 08/15/2017 08:12 AM LDLCALC 61 08/18/2018 12:44 PM ALT 9 (L) 08/15/2017 08:12 AM HGBA1C 5.4 08/15/2017 08:12 AM documented in this encounter Plan of Treatment Upcoming Encounters Date Type Specialty Care Team Description 05/28/2019 Office Visit Neurology Lilibeth Serrato CRNP [address] [place] [address] [phone] 07/17/2019 Office Visit Family Medicine Elias Duarte DO [address] [place] [address] [phone] 08/18/2019 Office Visit Cardiology Kings Camargo MD [address] [place] [address] [phone] Health Maintenance Due Date Last Done Comments [...] Documents on File Type Date Recorded Patient Resident Medical Officer Expl anation Advance Directives and Living Will 05/31/2015 12:00 AM ADVANCE DIRECTIVE Advanced Directive Advanced Directive Advanced Directive Advanced Directive Advanced Directive Advanced Directive
--- OUTSIDE RECORDS SUMMARY | 2023-05-29 00:03 | External Medical Summary | Summary of Care ---
Author Name Unknown Organization [place] [address] Care Team Providers Care Deputy Clerk Of [address] Name Role Phone Elias Duarte DO Primary Care Provider [phone] Reason for Visit * Reason Comments Medication Refill Encounter Details Date Type Department Care Team Description 12/05/2018 Refill Family Practice [facility] [address] [place] [address] Elias Duarte DO [address] [facility] [place] [address] [phone] BPH with obstruction/lower urinary tract symptoms Allergies No Known Allergiesdocumented as of this encounter (statuses as of 12/05/2018) Medications Medication Sig Dispensed Refills Start Date End Date Status ASPIRIN 325 MG PO TABS 1 tab at bedtime 0 Active metoprolol succinate XL (TOPROL XL) 25 MG [id number]:Sy mptomatic PVCs Take 1 Tab by mouth daily. 90 Tab 3 07/31/2017 Active tamsulosin (FLOMAX) 0.4 MG CapsuleIndications :BPH with obstruction/lower urinary tract symptoms TAKE 1 CAPSULE BY MOUTH ONCE A DAY 30 Cap 5 12/04/2017 Active DULoxetine (CYMBALTA) 30 MG CPEPIndications:Karla mbar [...] before breakfast. 30 Cap 5 10/03/2018 Active pravastatin (PRAVACHOL) 20 MG TabletIndications: Mixed dyslipidemia,PVC (premature ventricular contraction) TAKE 1 TABLET EACH NIGHT AT BEDTIME 90 Tab 3 12/05/2018 Active finasteride (PROSCAR) 5 MG TabletIndications: BPH with obstruction/lower urinary tract symptoms Take 1 Tab by mouth daily. 30 Tab 5 12/05/2018 Active finasteride (PROSCAR) 5 MG TabletIndications: BPH with obstruction/lower urinary tract symptoms Take 1 Tab by mouth daily. 30 Tab 5 10/25/2017 9 Discontinued documented as of this encounter (statuses as of 12/05/2018) Active Problems Problem Noted Date Episode of recurrent major depressive di sorder 10/27/2018 PVC (premature ventricular contraction) 03/12/2016 Dizziness 03/12/2016 Palpitations 03/12/2016 Need for prophylactic vaccin ation against Streptococcus pneumoniae (pneumococcus) 08/19/2013 Routine medical exam 03/28/2010 Special screening for malignant neoplasm s, colon 03/28/2010 Mixed dyslipidemia Sarcoidosis of lung Overview: ? dx 30 yrs ago but recent cxr normal documented as of this encounter (statuses as of 12/05/2018) Resolved Problems Problem Noted Date Resolved Date Impaired fasting glucose 03/12/2016 018 Constipation 02/12/2014 10/05/2014 Impacted cerumen 02/12/2014 10/05/2014 Screening for prostate cancer 07/24/2012 Palpitations 09/20/2011 08/19/2013 Spasm of muscle 05/15/2011 08/19/2013 Plantar fibromatosis 04/23/2011 08/19/2013 Urinary frequency 03/28/2010 08/19/2013 Impaired fasting glucose 014 Stress reaction, emotional 08/19 Stress reaction, emotional 03/28 Overview: hx of depression/ anxiety prior on meds documented as of this encounter (statuses as of 12/05/2018) Immunizations Name Dates Previously Given Next Due DTaP - Dipth/Tet/Acell Pertussis 07/14/2009 Pneumococcal Conjugate Vacc, 13 Valent (Prevnar) 03/06/2016 Pneumococcal Polysaccharide PPV23 (Pneumovax) 08/19/2013 Seasonal Influenza, Quadriva lent, No Preserve, 6 Mons & Above, IM 06/19/2018,07/23/2017 Seasonal Influenza, Quadriva lent, No Preserve, IM 06/28/2015 Seasonal Influenza, Trivalen t, with Preserve, 3yr & Above, Split 05/04/2014,05/25/2013,07/24/2012,09/2010,05/01/2010 TDAP (age 10 and older)(Boostrix) 02/12/2014 Varicella [...] Telephone Encounter - Elias Duarte DO - 12/05/2018 4:56 PM EDT Signed Prescriptions: Disp Refills finasteride (PROSCAR) 5 MG Tablet 30 Tab 5 Sig: Take 1 Tab by mouth daily. Authorizing Provider: ELIAS DUARTE * Telephone Encounter - Arabella Pillai OSA - 12/05/2018 3:44 PM EDT Pending Prescriptions: Disp Refills finasteride (PROSCAR) 5 MG Tablet 30 Tab 5 Sig: Take 1 Tab by mouth daily. Last Office Visit: 10/27/2018 Next Office Visit: 01/26/2019 Scheduled Provider(s): Elias Duarte DO If no future appointments scheduled, and last appointment is greater than a year ago, please schedule patient for a follow-up appointment Last date the medication was ordered: 10-25-2017 Patient Phone Numbers Labs: Lab Results Component Value Date/Time CREAT 0.8 08/18/2018 12:44 PM POTASSIUM 4.7 08/15/2017 08:12 AM TSH 1.66 08/15/2017 08:12 AM LDLCALC 61 08/18/2018 12:44 PM ALT 9 (L) 08/15/2017 08:12 AM HGBA1C 5.4 08/15/2017 08:12 AM documented in this encounter Plan of Treatment Upcoming Encounters Date Type Specialty Care Team Description 01/26/2019 Office Visit Family Medicine Elias Duarte DO [address] [place] [address] [phone] 05/28/2019 Office Visit Neurology Lilibeth Serrato CRNP [address] [place] [address] [phone] 08/18/2019 Office Visit Cardiology Kings Camargo MD [address] [place] [place] [address] [phone] Health Maintenance Due Date Last Done Comments COLONOSCOPY-EVERY 3 YRS AGES 18-100 12/27/2018 12/28/2015, 12/28/2015, 10/09/2012, Additional history exists DIABETES SCREEN EVERY 3 YRS-AGE 45 AND ABOVE 08/15/2020 08/15/2017, 08/15/2017, 03/12/2016, Additional history exists LIPID SCREEN EVERY 5 YRS-MEN AGE 35-75 08/18/2023 08/18/2018, 08/15/2017, 03/12/2016, Additional history exists DTaP,Tdap,and Td Vaccines (3 - Td) 02/13/2024 02/12/2014, 07/14/2009 PNEUMOCOCCAL ADULT 65 YRS AND OVER Completed 03/06/2016, 08/19/2013 ABDOMINAL AORTIC ANEURYSM (AAA) SCREENING Completed 07/25/2017 Influenza Vaccine (FLU shot) Completed , 07/23/2017, 06/28/2015, Additional history exists MENINGOCOCCAL (MENACTRA) Aged Out No longer eligible based on patient's age to complete this topic documented as of this encounter Implants Not on filedocumented as of this encounter Visit Diagnoses Diagnosis BPH with obstruction/lower urinary tract symptoms Hypertrophy of prostate with urinary obstruction and other lower urinary tract symptoms (LUTS) documented in this encounter Advance Directives Patient has advance care planning documents on file. For more information, please contact: [place] [phone]
--- OUTSIDE RECORDS SUMMARY | 2023-05-29 00:03 | External Medical Summary | Summary of Care ---
Author Name Unknown Organization [facility] Address [facility] [place] [address] Care Team Providers Care Soaking Pit Operator Name Role Phone Elias Cleary DO Primary Care Provider Reason for Visit * Reason Comments Follow Up Encounter Details Date Type Department Care Team Description 01/14/2019 Office Visit Family Practice [facility] 132 [facility] [place] [address] Elias Cleary DO 132 [facility] [place] [address] [phone] Parkinson's disease (HCC)*; Lumbar degenerative disc disease; Cerebrovascular disease, arteriosclerotic, post-stroke; Irritable bowel syndrome with constipation; Chronic fatigue Allergies No Known Allergiesdocumented as of this encounter (statuses as of 02/26/2019) Medications Medication Sig Dispensed Refills Start Date End Date Status ASPIRIN 325 MG PO TABS 1 tab at bedtime 0 Active metoprolol succinate XL (TOPROL XL) 25 MG CR32Mnqduztnfqs:Sy mptomatic PVCs Take 1 Tab by mouth [...] Sign Reading Time Taken Comments Blood Pressure 120/72 01/14/2019 4:01 PM EDT Pulse 77 01/14/2019 4:01 PM EDT Temperature - - Respiratory Rate 16 01/14/2019 4:01 PM EDT Oxygen Saturation - - Inhaled Oxygen Concentration - - Weight 79.4 kg (175 lb) 01/14/2019 4:01 PM EDT Height 177.8 cm (5' 10") 01/14/2019 4:01 PM EDT Body Mass Index 25.11 01/14/2019 4:01 PM EDT documented in this encounter Progress Notes * Elias Cleary DO - 02/26/2019 3:55 PM EDT Chief Complaint Patient presents with Follow Up HPI: Patient is a 69-year-old male here for medical follow-up of Parkinson's disease, lumbar disc disease, cerebrovascular disease post stroke and IBS. Patient complains of chronic fatigue, tremor and gait disturbance stable. Patient denies falls. Patient is tolerating Sinemet well with no adverse e ffects. Patient is following a diet and exercise program. Patient denies headache dizziness weakness or numbness. Patient denies chest pain, palpitations shortness of breath or edema. Patient denies cough or sputum. Patient complains of chronic intermittent constipation. Patient complains of low back pain and stiffness. Patient denies radiation of pain, muscle weakness or numbness. Review of systems otherwise neg Past Medical History: Medication list, PMH, Family [...] major depressive disorder (HCC) F33.9 Parkinson's disease ([facility]) G20 Lumbar degenerative disc disease M51.36 Current [...] cut, crush or chew 30 Cap 5 metoprolol succinate XL (TOPROL XL) 25 MG TB24 Take 1 Tab by mouth daily. 90 Tab 3 ASPIRIN 325 MG PO TABS 1 tab at bedtime tamsulosin (FLOMAX) 0.4 MG Capsule Take 1 tablet at bedtime 30 Cap 5 Past Medical History: Diagnosis Date Benign neoplasm [...] performed by Dale Whitlock MD at ENDOSCOPY [facility] COLONOSCOPY, DIAGNOSTIC (RECTUM) 12/28/2015 adenomatous polyp, diverticulosis, repeat 3 yrs/COLONOSCOPY FLEXIBLE PROXIMAL DIAGNOSTIC performed by Enid John MD at ENDOSCOPY [facility] COLONOSCOPY/REMOVE LESION 04/27/2010 2 polyps [...] Last attempt to quit: 07/22/1974 Years since quittin.6 Smokeless tobacco: Never Used Substance Use Topics Alcohol use: No Review of Systems: No nausea, vomiting or diarrhea. No chest pain or shortness of breath, No fatigue. No fevers, chillor night sweats. All other ROS examined in detail and are negative except as documented in HPI. All other systems reviewed and are negative. Objective: BP 120/72 | Pulse 77 | Resp 16 | Ht 5' 10" (1.778m) | Wt 175 lbs (79.379kg) | BMI 25.11 kg/m | BSA 1.98 m Physical Exam: General: alert, healthy and [...] no costovertebral angle tenderness, lumbar paravertebral musclespasm tenderness with decreased range of motion lumbar flexion L1-L5 Extremities: no edema, no clubbing, no cyanosis Neuro Exam: alert & oriented x 3 with fluent speech, no focal motor/sensory deficits, gait normal, reflexes normal and symmetric, resting tremor bilateral hand Skin: skin color, texture, turgor are normal, no rashes or significant lesions ASSESSMENT/PLAN: Parkinson's disease (HCC) (Primary) Continue present medication Follow with neurologist Continue home exercise program Lumbar degenerative disc disease Avoid strenuous activities, no heavy lifting greater than 20 lb, warm compresses q.i.d. To affectedarea home therapeutic exercise program Cerebrovascular disease, arteriosclerotic, post-stroke Continue present medication Irritable bowel syndrome with constipation Continue present medication High-fiber diet Chronic fatigue Counseled regarding sleep hygiene Follow Up: Return in about 6 months (around 07/16/2019). Elias Cleary DO 02/26/19 documented in this encounter Nursing Notes * Nerissa Martinez LPN - 01/14/2019 4:01 PM EDT The patient has been properly identified by confirmation of name and date of . Chief Complaint Patient presents with Follow Up documented in this encounter Plan of Treatment Upcoming Encounters Date Type Specialty Care Team Description 05/28/2019 Office Visit Neurology Lilibeth Serrato CRNP [address] [place] [address] [phone] 07/17/2019 Office Visit Family Medicine Elias Cleary DO [address] [place] [address] [phone] 08/18/2019 Office Visit Cardiology Kings Camargo MD [address] [place] [address] [phone] Health Maintenance Due Date Last Done Comments [...] Degeneration of lumbar or lumbosacral intervertebral disc Cerebrovascular disease, arteriosclerotic, post-stroke Cerebral atherosclerosis Irritable bowel syndrome with constipation Irritable bowel syndrome Chronic fatigue Other malaise and fatigue documented in this encounter Advance Directives Documents on File Type Date Recorded Patient Frame Hand Expl anation Advance Directives and Living Will 05/31/2015 12:00 AM ADVANCE DIRECTIVE Advanced Directive Advanced Directive Advanced Directive Advanced Directive Advanced Directive Advanced Directive
--- OUTSIDE RECORDS SUMMARY | 2023-05-29 00:03 | External Medical Summary | Summary of Care ---
Author Name Unknown Organization [place] [address] Care Team Providers Care Furnace Fitter Name Role Phone Felicia Elias Primary Care Provider [phone] Encounter Details Date Type Department Care Team Description 01/30/2019 Scan Encounter Neurology [facility] [address] [place] [address] Lilibeth Serrato [facility] [address] [place] [address] [phone] <No scans attached> Allergies No Known Allergiesdocumented as of this encounter (statuses as of 02/13/2019) Medications Medication Sig Dispensed Refills Start Date End Date Status ASPIRIN 325 MG PO TABS 1 tab at bedtime 0 Active metoprolol succinate XL (TOPROL XL) 25 MG LB97Xspuzlmwknp:Symp tomatic PVCs Take 1 Tab by mouth [...] as of this encounter (statuses as of 02/13/2019) Active Problems Problem Noted Date Parkinson's disease [...] as of this encounter (statuses as of 02/13/2019) Resolved Problems Problem Noted Date Resolved Date [...] as of this encounter (statuses as of 02/13/2019) Immunizations Name Administration Dates Next Due DTaP [...] Visit Neurology Lilibeth Serrato CRNP [address] [facility] [place] [address] [phone] 07/17/2019 Office Visit Family Medicine Elias Duarte DO 132 [facility] [place] [address] [phone] 08/18/2019 Office Visit Cardiology Kings Camargo MD 132 [facility] [place] [address] Health Maintenance Due Date [...] Documents on File Type Date Recorded Patient Cotton Expert Expl anation Advance Directives and Living Will 05/31/2015 12:00 AM ADVANCE DIRECTIVE Advanced Directive Advanced Directive Advanced Directive Advanced Directive Advanced Directive Advanced Directive
--- OUTSIDE RECORDS SUMMARY | 2023-05-29 00:03 | External Medical Summary | Summary of Care ---
Author Name Unknown Organization [place] [address] Care Team Providers Care Sound Cutter Name Role Phone Elias Duarte DO Primary Care Provider [phone] Reason for Visit * Reason Comments eRx-Medication Refill Encounter Details Date Type Department Care Team Description 12/06/2018 Refill Cardiology, [facility] [address] [place] [address] Mine Camargo MD 132 [facility] [place] [address] [phone] Mixed dyslipidemia; PVC (premature ventricular contraction) Allergies No Known Allergiesdocumented as of this encounter (statuses as of 12/08/2018) Medications Medication Sig Dispensed Refills Start Date End Date Status ASPIRIN 325 MG PO TABS 1 tab at bedtime 0 Active metoprolol succinate XL (TOPROL XL) 25 MG MC69Asuudrmnvge:Sy mptomatic PVCs Take 1 Tab by mouth [...] AT BEDTIME 90 Tab 3 12/08/2018 Active pravastatin (PRAVACHOL) 20 MG TabletIndications: Mixed dyslipidemia,PVC (premature ventricular contraction) TAKE 1 TABLET EACH NIGHT AT BEDTIME 90 Tab 3 12/05/2018 9 Discontinued documented as of this encounter (statuses as of 12/08/2018) Active Problems Problem Noted Date Episode of [...] as of this encounter (statuses as of 12/08/2018) Resolved Problems Problem Noted Date Resolved Date [...] as of this encounter (statuses as of 12/08/2018) Immunizations Name Administration Dates Next Due DTaP [...] Telephone Encounter - Mine Camargo MD - 12/08/2018 12:03 PM EDT Signed Prescriptions: Disp Refills pravastatin (PRAVACHOL) 20 MG Tablet 90 Tab 3 Sig: TAKE 1 TABLET EACH NIGHT AT BEDTIME Authorizing Provider: MINE CAMARGO * Telephone Encounter - Doris Lopez RN - 12/08/2018 8:50 AM EDT Pending Prescriptions: Disp Refills pravastatin (PRAVACHOL) 20 MG Tablet [Pha*90 Tab 3 Sig: TAKE 1 TABLET EACH NIGHT AT BEDTIME * Telephone Encounter - Tiffany Amos LPN - 12/08/2018 8:23 AM EDT Pending Prescriptions: Disp Refills pravastatin (PRAVACHOL) 20 MG Tablet [Pha*90 Tab 3 Sig: TAKE 1 TABLET EACH NIGHT AT BEDTIME * Telephone Encounter - Tiffany Amos LPN - 12/08/2018 8:21 AM EDT Pending Prescriptions: Disp Refills pravastatin (PRAVACHOL) 20 MG Tablet [Pha* 11 Sig: TAKE 1 TABLET EACH NIGHT AT BEDTIME Last Office Visit: 08/18/2018 Next Office Visit: 08/18/2019 Scheduled Provider(s): Mine Camargo MD Last date the medication was ordered: 12/05/18 Patient Active Problem List Diagnosis Code Mixed dyslipidemia E78.2 Sarcoidosis of lung (HCC) D86.0 Routine medical exam Z00.00 Special screening for malignant neoplasms, colon Z12.11 Need for prophylactic vaccination against Streptococcus pneumoniae (pneumococcus) Z23 PVC (premature ventricular contraction) I49.3 Dizziness R42 Palpitations R00.2 Episode of recurrent major depressive disorder (HCC) F33.9 Labs: CREATININE(mg/dL) Gabriel Dt/Tm Resulted Value Status 08/18/18 12:44P 08/18/18 0.8 FINAL POTASSIUM(mmol/L) Gabriel Dt/Tm Resulted Value Status 08/15/17 8:1208/15/17 4.7 FINAL TSH(uIU/mL) Gabriel Dt/Tm Resulted Value Status 08/15/17 8:1208/15/17 1.66 FINAL LDL (CALCULATED)(mg/dL) Gabriel Dt/Tm Resulted Value Status 08/18/18 12:44P 08/18/18 61 FINAL 08/15/17 8:08/15/17 119 FINAL ALT(U/L) Gabriel Dt/Tm Resulted Value Status 08/15/17 8:1208/15/17 9* FINAL Hemoglobin AIC Results: HEMOGLOBIN, A1C(%) Gabriel Dt/Tm Resulted Value Status 08/15/17 8:12A 08/15/17 5.4 FINAL documented in this encounter Plan of Treatment Upcoming Encounters Date Type Specialty Care Team Description 01/26/2019 Office Visit Family Medicine Elias Duarte DO [address] [place] [address] [phone] 05/28/2019 Office Visit [facility] [address] [phone] 08/18/2019 Office Visit Cardiology Mine Camargo MD 132 [facility] [place] [address] [phone] Health Maintenance Due Date Last Done Comments [...] Documents on File Type Date Recorded Patient Pot Builder Expl anation Advance Directives and Living Will 05/31/2015 12:00 AM ADVANCE DIRECTIVE Advanced Directive Advanced Directive Advanced Directive Advanced Directive Advanced Directive Advanced Directive
--- OUTSIDE RECORDS SUMMARY | 2023-05-29 00:03 | External Medical Summary | Summary of Care ---
Author Name Unknown Organization [place] [address] Care Team Providers Care Secretary Name Role Phone Felicia Elias Primary Care Provider [phone] Reason for Visit * Reason Comments Referral Encounter Details Date Type Department Care Team Description 01/08/[address] [facility] [address] [place] [address] Lilibeth Serrato CRNP 200 [place] [address] Referral Allergies No Known Allergiesdocumented as of this encounter (statuses as of 01/08/2019) Medications Medication Sig Dispensed Refills Start Date End Date Status ASPIRIN 325 MG PO TABS 1 tab at bedtime 0 Active metoprolol succinate XL (TOPROL XL) 25 MG VO06Chhggwygadt:Symp tomatic PVCs Take 1 Tab by mouth [...] as of this encounter (statuses as of 01/08/2019) Active Problems Problem Noted Date Episode of [...] as of this encounter (statuses as of 01/08/2019) Resolved Problems Problem Noted Date Resolved Date [...] as of this encounter (statuses as of 01/08/2019) Immunizations Name Administration Dates Next Due DTaP [...] encounter Miscellaneous Notes * Telephone Encounter - India Yen OSA - 01/08/2019 3:26 PM EDT Patient has been notified of the message. Patient has no further questions. * Telephone Encounter - Carmina London MED ASSIST - 01/08/2019 2:01 PM EDT Called pt no answer, left message on v/m to return call. Please give below message when call is returned. Thank you Ok to give pt info below when message is returned * Telephone Encounter - Lilibeth Serrato CRNP - 01/08/2019 11:59 AM EDT Side bar discussion with patient retarding shoulder pain they he should discuss with PCP and decided if ortho consult makes sense * Telephone Encounter - Adriana Pugh LPN - 01/08/2019 9:50 AM EDT Im not sure what they are asking for since the pt was referred here by Dr Cleary. Please advise * Telephone Encounter - Minerva Covington OSA - 01/08/2019 8:40 AM EDT New referral request: Our records indicate that you have an upcoming appointment and a referral is required for this visit. Please review pended referral for the following: Patient Name: Jacques Alicea Patient Primary care provider: Elias Cleary DO Name of preferred specialist: Type of specialist: Orthopaedics Location of specialist: Specialist's Phone # : Specialist's Fax #: Reason for visit: Date of visit: Pt states that when he was in yesterday 01/07 for an office visit it was discussed that pt should see Orthopaedics, pt would like to discuss with provider who she would feel would be best for pt. Please advise . documented in this encounter Plan of Treatment Upcoming Encounters Date Type Specialty Care Team Description 01/26/2019 Office Visit Family Medicine Elias Cleary DO [address] [place] [address] [phone] 05/28/2019 Office Visit Neurology Lilibeth Serrato CRNP [address] [place] [address] [phone] 08/18/2019 Office Visit Cardiology Kings Camargo MD [address] [place] [address] [phone] Health Maintenance Due Date Last Done Comments [...] Documents on File Type Date Recorded Patient Electric Motorman Expl anation Advance Directives and Living Will 05/31/2015 12:00 AM ADVANCE DIRECTIVE Advanced Directive Advanced Directive Advanced Directive Advanced Directive Advanced Directive Advanced Directive
--- OUTSIDE RECORDS SUMMARY | 2023-05-29 00:03 | External Medical Summary | Summary of Care ---
Author Name Unknown Organization [place] [address] Care Team Providers Care Hop Sorter Name Role Phone Elias Duarte DO Primary Care Provider Reason for Referral * Evaluate & Treat - Unlimited Visits (Within 10 days (routine)) Status Reason Specialty Diagnoses / Procedures Referred By Contact Referred To Contact Pending Review Specialty Services Required Physical Therapy Diagnoses Parkinson's disease (HCC) Lilibeth Serrato CRNP [address] [place] [address] Reason for Visit * Reason Comments Return Neuro Balance problem, gai t abnormality, tremor Encounter Details Date Type Department Care Team Description 11/20/2018 Office Visit Neurology [facility] 200 [place] [address] Lilibeth Serrato CRNP [address] [place] [address] [phone] Parkinson's disease (HCC)* Allergies No Known Allergiesdocumented as of this encounter (statuses as of 12/22/2018) Medications Medication Sig Dispensed Refills Start Date End Date Status ASPIRIN 325 MG PO TABS 1 tab at bedtime 0 Active metoprolol succinate XL (TOPROL XL) 25 MG VA06Ciwhwmygxaq:Sy mptomatic PVCs Take 1 Tab by mouth [...] MG TabletIndications: Mixed dyslipidemia,PVC (premature ventricular contraction) Take 1 Tab by mouth every night at bedtime. 90 Tab 11 08/16/2017 9 Discontinued finasteride (PROSCAR) 5 MG TabletIndications: BPH with obstruction/lower urinary tract symptoms Take 1 Tab by mouth daily. 30 Tab 5 10/25/2017 9 Discontinued documented as of this encounter (statuses as of 12/22/2018) Active Problems Problem Noted Date Episode of [...] as of this encounter (statuses as of 12/22/2018) Resolved Problems Problem Noted Date Resolved Date [...] as of this encounter (statuses as of 12/22/2018) Immunizations Name Administration Dates Next Due DTaP [...] Sign Reading Time Taken Comments Blood Pressure 126/84 11/20/2018 1:45 PM EDT Pulse 74 11/20/2018 1:45 PM EDT Temperature - - Respiratory Rate 16 11/20/2018 1:45 PM EDT Oxygen Saturation - - Inhaled Oxygen Concentration - - Weight 78.4 kg (172 lb 12.8 oz) 11/20/2018 1:45 PM EDT Height - - Body Mass Index 24.79 10/27/2018 1:35 PM EDT documented in this encounter Progress Notes * Lilibeth Serrato CRNP - 12/22/2018 6:04 AM EDT HISTORY & PHYSICAL EXAMINATION - NEUROLOGY Name: Jacques Alicea Date: 11/20/2018 Time: 2:04 PM Referring Provider: Elias Duarte DO Chief Complaint Patient presents with Return Neuro Balance problem, gait abnormality, tremor Source of HPI The patient was the historian, and he is reliable SUBJECTIVE: Jacques Alicea is a 68 year old right handed patient new patient referred to me today for Changes in balance and gait, for over a year- last visit we did a trial of Carbidopa-Levodopa He feels this made a significant difference Also has noted a fine tremor in his right hand which his improved Has lightheadedness and some dizziness with postural changes Denies any issues with sleep, denies any vivid dreams Denies any falls History of depression Patient denies confusion, trouble speaking, dysarthria, dysphagia, diplopia, facial droop, facial numbness, headache, weakness, numbness, cramping, pain, urinary or bowel symptoms REVIEW OF SYSTEMS: Constitutional: No fever, no [...] no hematuria, no recent UTI. No incontinence Musculoskeletal : History of ongoing lower back pain, denies any numbness and tingling Hematologic / lymphatic : Bleeding tendencies negative, bruising tendencies negative Psychiatric: No change in personality, affect or depression, no confusion/delirium Neurological: No difficulty with sleep, abnormal dreaming, walking or talking in sleep, Refer toHPI for other relevant neurological findings All other pertinent review of system findings [...] of recurrent major depressive disorder (HCC) F33.9 Current Outpatient Medications: Current Outpatient Medications Medication [...] tab at bedtime OBJECTIVE: Physical Examination: BP 126/84 | Pulse 74 | Resp 16 | Wt 172 lbs 12.8 oz (78.382kg) | BMI 24.79 kg/m | BSA 1.97 m General appearance: healthy, alert, no distress NEUROLOGIC EXAMINATION: Alert and interactive Oriented to full date and location Oriented to person Speech fluent with no evidence of aphasia Fund of knowledge, conversational skills appear appropriate Ophthalmoscopic: Disc Flat, Normal fundus, no vessel changes, exudates, hemorrhages Cranial Nerves:Normal findings for Cranial Nerves II - XII 2 No Visual Defect on Confrontation; Pupils round, equal, reactive to light 3,4,6 Extraocular Movements Intact; no nystagmus 5 Facial Sensation Intact 7 No facial asymmetry 8 Intact hearing with finger rub 9,10 Palate symmetric, normal gag 11 Good shoulder shrug strength 12 Tongue Midline Gait steady gait able to walk heal and toes Posture normal. Coordination/Motor: on ivqzpo-bs-ukrm, ypal-tqdy-ddii Sensory: no sensory deficits Muscle Tone: normal, flat affect Strength:Normal - 5/5 all extremities Reflexes: Deep tendon reflexes were symmetrical and graded 0/5. LABORATORY: HEMOGLOBIN, A1C(%) Gabriel Dt/Tm Resulted Value [...] 08/15/17 0.02 F No INR components found No VITAMIN B12 components found No 25-HYDROXY VITAMIN D orders found Recent labs reviewed Review of prior Studies: MRI Reviewed with Daniel Lin MD Differentials/ IMPRESSION: Good response to Carbidopa-Levodopa , continues to feel balance is off -will try physical therapy to improve gait and balance further ICD-10-CM 1. Parkinson's disease (HCC) G20 ASSESSMENT/PLAN: Parkinson's disease (HCC) (Primary) - PHYSICAL THERAPY REFERRAL OP Follow Up: Return in about 6 months (around 05/23/2019). Education / Consultation - Topics covered 1. Instructions for management (treatment) and/or follow up Medical Decision Making: Number of Diagnosis or Treatment Options:Established problem; stable or improved Amount or Complexity of Data Reviewed: Review/ order lab Review/ order rad Review/ order medicine Discuss test results with physician Risk of Complications related to disease process anticipated between today and next encounter: Moderate: Prescription Drug Management: Consulted with physician: Daniel Lin MD. Copy of note sent to PCP. YOLI Rosas, [facility] Neurology [facility] 200 [facility] [address] 12/22/2018 6:04 AM (This note was completed using the dictation program Fluency Direct. As such, there may be misspellings, word substitutions, or other variations that should not change the essence of the clinical content of this encounter note.If there is need for further clarification, please direct questions to the provider listed above.) documented in this encounter Nursing Notes * Carmina London MED ASSIST - 11/20/2018 1:43 PM EDT Patient verified identity by spelling of last name and date. Do you have any concerns about pain management for today's visit? No LIVING WILL OR ADVANCE DIRECTIVE FOR HEALTH CARE NOTED ON PROBLEM LIST. [facility] is a way you can talk to your provider online through e-mail. Would you like to sign up? I can activate it for you? ALREADY ACTIVE documented in this encounter Plan of Treatment Upcoming Encounters Date Type Specialty Care Team Description 01/26/2019 Office Visit Family Medicine Elias Duarte DO 132 [facility] [place] [address] [phone] 05/28/2019 Office Visit Neurology Lilibeth Serrato CRNP [address] [facility] [place] [address] [phone] 08/18/2019 Office Visit Cardiology Kings Camargo MD [address] [place] [address] [phone] Scheduled Referrals Name Type Priority Associated Diagnoses Orde r Schedule PHYSICAL THERAPY REFERRAL OP Referral Within 10 days (routine) Parkinson's disease (HCC) Ordered: 11/20/2018 Health Maintenance Due Date Last Done Comments [...] Documents on File Type Date Recorded Patient Radio Sportscaster Expl anation Advance Directives and Living Will 05/31/2015 12:00 AM ADVANCE DIRECTIVE Advanced Directive Advanced Directive Advanced Directive Advanced Directive Advanced Directive Advanced Directive"
--- OUTSIDE RECORDS SUMMARY | 2023-05-29 00:04 | External Medical Summary | Summary of Care ---
Author Name Unknown Organization [place] [address] Care Team Providers Care Anti Air Warfare Operations Officer Name Role Phone Felicia Elias Primary Care Provider Reason for Visit * Reason Comments Return Neuro Balance problem, gai t abnormality, tremor Encounter Details Date Type Department Care Team Description 09/29/2018 Office Visit Neurology [facility] [address] [place] [address] Lilibeth Serrato CRNP [address] [place], [place] [address] Balance problem*; Gait abnormality; Tremor; Bradykinesia Allergies No Known Allergiesdocumented as of this encounter (statuses as of 10/02/2018) Medications Medication Sig Dispensed Refills Start Date End Date Status ASPIRIN 325 MG PO TABS pt taking 2 tablets each night at bedtime 0 Active metoprolol succinate XL (TOPROL XL) 25 MG [id number]:Sy mptomatic PVCs Take 1 Tab by mouth daily. 90 Tab 3 07/31/2017 Active pravastatin (PRAVACHOL) 20 MG TabletIndications: Mixed dyslipidemia,PVC (premature ventricular contraction) Take 1 Tab by mouth every night at bedtime. 90 Tab 11 08/16/2017 Active finasteride (PROSCAR) 5 MG TabletIndications: BPH with obstruction/lower urinary tract symptoms Take 1 Tab by mouth daily. 30 Tab 5 10/25/2017 Active tamsulosin (FLOMAX) 0.4 MG CapsuleIndications :BPH [...] mouth daily before breakfast. 30 Cap 5 10/25/2017 9 Discontinued documented as of this encounter (statuses as of 10/02/2018) Active Problems Problem Noted Date PVC (premature ventricular contraction) 03/12/2016 Dizziness 03/12/2016 Palpitations 03/12/2016 Need for prophylactic vaccin ation against Streptococcus pneumoniae (pneumococcus) 08/19/2013 Routine medical exam 03/28/2010 Special screening for malignant neoplasm s, colon 03/28/2010 Mixed dyslipidemia Sarcoidosis of lung Overview: ? dx 30 yrs ago but recent cxr normal documented as of this encounter (statuses as of 10/02/2018) Resolved Problems Problem Noted Date Resolved Date [...] as of this encounter (statuses as of 10/02/2018) Immunizations Name Dates Previously Given Next Due [...] Vital Signs Vital Sign Reading Time Taken Blood Pressure 124/80 09/29/2018 2:57 PM EDT Pulse 76 09/29/2018 2:57 PM EDT Temperature - - Respiratory Rate 16 09/29/2018 2:57 PM EDT Oxygen Saturation - - Inhaled Oxygen Concentration - - Weight 77.9 kg (171 lb 11.2 oz) 019 2:57 PM EDT Height - - Body Mass Index 24.64 09/29/2018 2:57 PM EDT documented in this encounter Patient Instructions * Patient Instructions* Lilibeth Serrato CRNP - 09/29/2018 4:00 PM EDT Instructions for Sinemet (carbidopa-levodopa 25-100) Used to treat Parkinson symptoms such as muscle stiffness, tremors, spasms, and poor muscle control- Build up to 3 tabs a day Week 1 1/2 tab in am Week 2 1/2 tab am 1/2 tab lunch Week 3 1/2 tab am 1/2 tab noon 1/2 tab pm Week 4 1 tab am 1/2 tab noon 1/2 tab pm Week 5 1 tab am 1 tab noon 1/2 tab pm Week 6 1 tab am 1 tab noon 1 tab pm Less serious side effects may include: mild nausea, dry mouth, loss of appetite, heartburn, diarrhea, constipation; headache, dizziness, drowsiness, blurred vision; sneezing, stuffy nose, cough, or other cold symptoms; sleep problems (insomnia), strange dreams; muscle pain, numbness or tingly feeling; or skin rash or itching. Call your doctor at once if you have any of these serious side effects: restless muscle movements in your eyes, tongue, jaw, or neck; worsening of tremors (uncontrolled shaking); high fever, stiff muscles, sweating, fast or uneven heartbeats, rapid breathing, feeling like you might pass out; painful or difficult urination; severe nausea, vomiting, or diarrhea; uneven heart rate or fluttering in your chest; confusion, hallucinations, anxiety, agitation, depressed mood, thoughts of suicide or hurting yourself; documented in this encounter Progress Notes * Lilibeth Serrato CRNP - 09/29/2018 3:42 PM EDT HISTORY & PHYSICAL EXAMINATION - NEUROLOGY Name: Jacques Alicea Date: 09/29/2018 Time: 3:42 PM Referring Provider: Self Chief Complaint Patient presents with Return Neuro Balance problem, gait abnormality, tremor Source of HPI The patient was the historian, and he is reliable SUBJECTIVE: Jacques Alicea is a 68 year old patient returns today for follow up for balance, gait and tremor. In July at that point he had just been started on Cymbalta by primary care so we are hesitant to do a trial of carbidopa levodopa- not wanting to start to drugs at 1 time due to potentialside effects and not being able to see which drug be causing a side effect he is here today so we can and give a trial and see how he responds. He is currently taking Cymbalta with no difficulties inno side effects. REVIEW OF SYSTEMS: Constitutional: No fever, no chills, nounintentional weight change Skin: No jaundice, no rash, no itching Eye: No recent vision problems, no diplopia, no blurred vision, no tearing, no Redness Ears, nose and throat:: No tinnitus, no voice changes, difficulty swallowing, No sore throat or sinus congestion Respiratory : No shortness of breath, no [...] ventricular contraction) I49.3 Dizziness R42 Palpitations R00.2 Current Outpatient Medications: Current Outpatient Medications Medication Sig Dispense Refill carbidopa-levodopa 25-100 mg per tab (SINEMET) 25-100 MG per tablet Take 1 Tab by mouth 3 timesa day. Follow instructions in handout 90 Tab 12 Linaclotide (LINZESS) 290 MCG Capsule Take 1 Cap by mouth daily before breakfast. 30 Cap 5 DULoxetine (CYMBALTA) 30 MG CPEP Take 1 Cap by mouth daily. Do not cut, crush or chew 30 Cap 5 tamsulosin (FLOMAX) 0.4 MG Capsule TAKE 1 CAPSULE BY MOUTH ONCE A DAY 30 Cap 5 finasteride (PROSCAR) 5 MG Tablet Take 1 Tab by mouth daily. 30 Tab 5 pravastatin (PRAVACHOL) 20 MG Tablet Take 1 Tab by mouth every night at bedtime. 90 Tab 11 metoprolol succinate XL (TOPROL XL) 25 MG TB24 Take 1 Tab by mouth daily. 90 Tab 3 ASPIRIN 325 MG PO TABS pt taking 2 tablets each night at bedtime OBJECTIVE: Physical Examination: BP 124/80 | Pulse 76 | Resp 16 | Wt 171 lbs 11.2 oz (77.883kg) | BMI 24.64 kg/m | BSA 1.96 m General appearance: healthy, alert, no distress NEUROLOGIC EXAMINATION: MS: AAOx3 CN: EOM intact, PERRLA, no nystagmus, sensation in CN V intact and equal, strength to mastication intact, strength in CN VII intact and equal, hearing intact to finger rub, speech without dysarthria,tongue midline, shoulder shrug Motor: biceps/triceps/ wrist flexion/extension 5/ RUE, 5/ LUE; hip, knee, ankle flexion/extension5/ RLE, 5 LLE Sensation: intact x4 extremities to light touch Reflexes: 2+ patellar & biceps Ataxia: Slow rapid alternating movements with left worse than right gait bradykinetic with decreased arm swing on the left Movement: Mild pin rolling tremor left worse than right LABORATORY: HEMOGLOBIN, A1C(%) Gabriel Dt/Tm Resulted Value [...] components found No VITAMIN B12 components found Recent labs reviewed Review of prior Studies: MRI Reviewed with Daniel Lin MD Differentials/ IMPRESSION: Went over MRI with patient does have significant ischemic vascular changes periventricular with atrophy which may be contributing to his movement we will do a trial carbidopa levodopa and see if this improves his movement and rigidity and Parkinson's features ICD-10-CM 1. Balance problem R26.89 2. Gait abnormality R26.9 3. Tremor R25.1 4. Bradykinesia R25.8 ASSESSMENT/PLAN: R26.89 Balance problem (primary encounter diagnosis) Plan: Carbidopa-levodopa 25-100 mg po tabs Sig:Take 1 tab by mouth 3 times a day. follow instructions in handout R26.9 Gait abnormality Plan: Carbidopa-levodopa 25-100 mg po tabs Sig:Take 1 tab by mouth 3 times a day. follow instructions in handout R25.1 Tremor Plan: Carbidopa-levodopa 25-100 mg po tabs Sig:Take 1 tab by mouth 3 times a day. follow instructions in handout R25.8 Bradykinesia Plan: Carbidopa-levodopa 25-100 mg po tabs Sig:Take 1 tab by mouth 3 times a day. follow instructions in handout Follow up: Return in about 7 weeks (around 11/17/2018). Education / Consultation - Topics covered 1. Instructions for management (treatment) and/or follow up Medical Decision Making: Number of Diagnosis or Treatment Options:New problem; no additional workup planned Amount or Complexity of Data Reviewed: Review/ order lab Review/ order rad Review/ order medicine Discuss test results with physician Risk of Complications related to disease process anticipated between today and next encounter: Moderate: Undiagnosed new problem and Prescription Drug Management: Consulted with physician: Daniel Lin MD. Copy of note sent to PCP and Referring Provider. YOLI Rosas, [facility] Neurology [facility] [address] [facility] [address] 09/29/2018 3:42 PM (This note was completed using the dictation program Fluency Direct. As such, there may be misspellings, word substitutions, or other variations that should not change the essence of the clinical content of this encounter note.If there is need for further clarification, please direct questions to the provider listed above.) documented in this encounter Nursing Notes * Cramina London MED ASSIST - 09/29/2018 2:55 PM EDT Patient verified identity by spelling [...] Encounters Date Type Specialty Care Team Description 10/27/2018 Office Visit Family Medicine Elias Duarte DO [address] [place] [address] [phone] 11/20/2018 Office Visit Neurology [facility] [address] [facility] [address] [phone] 08/18/2019 Office Visit Cardiology Kings Camargo MD [address] [place] [place] [address] [phone] Health Maintenance Due Date Last Done Comments [...] of this encounter Visit Diagnoses Diagnosis Balance problem- Primary Other symptoms involving nervous and musculoskeletal systems Gait abnormality Abnormality of gait Tremor Abnormal involuntary movements Bradykinesia Abnormal involuntary movements documented in this encounter Advance Directives Patient has advance care planning documents on file. For more information, please contact: [place] [phone]"
--- OUTSIDE RECORDS SUMMARY | 2023-05-29 00:04 | External Medical Summary | Summary of Care ---
Author Name Unknown Organization [place] [address] Care Team Providers Care Occasional Caregiver Name Role Phone Elias Duarte DO Primary Care Provider Reason for Visit * Reason Comments eRx-Medication Refill Encounter Details Date Type Department Care Team Description 12/04/2018 Refill Cardiology, [facility] [address] [place] [address] Kings Camargo MD [address] [facility] [place] [address] [phone] Mixed dyslipidemia; PVC (premature ventricular contraction) Allergies No Known Allergiesdocumented as of this encounter (statuses as of 12/05/2018) Medications Medication Sig Dispensed Refills Start Date End Date Status ASPIRIN 325 MG PO TABS 1 tab at bedtime 0 Active metoprolol succinate XL (TOPROL XL) 25 MG [id number]:Sy mptomatic PVCs Take 1 Tab by mouth daily. 90 Tab 3 07/31/2017 Active finasteride (PROSCAR) 5 MG TabletIndications: BPH [...] AT BEDTIME 90 Tab 3 12/05/2018 Active pravastatin (PRAVACHOL) 20 MG TabletIndications: Mixed dyslipidemia,PVC (premature ventricular contraction) Take 1 Tab by mouth every night at bedtime. 90 Tab 11 08/16/2017 9 Discontinued documented as of this encounter [...] Telephone Encounter - Kings Camargo MD - 12/05/2018 8:39 AM EDT Signed Prescriptions: Disp Refills pravastatin (PRAVACHOL) 20 MG Tablet 90 Tab 3 Sig: TAKE 1 TABLET EACH NIGHT AT BEDTIME Authorizing Provider: KINGS CAMARGO * Telephone Encounter - Kita Manzo LPN - 12/04/2018 1:31 PM EDT Pending Prescriptions: Disp Refills pravastatin (PRAVACHOL) 20 MG Tablet [Pha*90 Tab 3 Sig: TAKE 1 TABLET EACH NIGHT AT BEDTIME * Telephone Encounter - Kita Manzo LPN - 12/04/2018 1:29 PM EDT Pending Prescriptions: Disp Refills pravastatin (PRAVACHOL) 20 MG Tablet [Pha* 11 Sig: TAKE 1 TABLET EACH NIGHT AT BEDTIME Last Office Visit: 08/18/2018 Next Office Visit: 08/18/2019 Scheduled Provider(s): Kings Camargo MD If no future appointments scheduled, and last appointment is greater than a year ago, please schedule patient for a follow-up appointment Last date the medication was ordered: 08/16/2017 Patient Phone Numbers Labs: Lab Results Component [...] Medicine Elias Duarte DO [address] [place] [address] [phone] 05/28/2019 Office Visit Neurology Lilibeth Serrato CRNP [address] [facility] [place] [address] [phone] 08/18/2019 Office Visit Cardiology Kings Camargo MD [address] [place] [place] [address] [phone] Health Maintenance Due Date Last Done Comments [...] beats documented in this encounter Advance Directives Patient has advance care planning documents on file. For more information, please contact: [place] [phone]
--- OUTSIDE RECORDS SUMMARY | 2023-05-29 00:04 | External Medical Summary | Summary of Care ---
Author Name Unknown Organization [place] [address] Care Team Providers Care Computer Assistant Name Role Phone FeliciaElias davila Primary Care Provider Reason for Visit * Reason Comments Appointment BUN and Creatinine Encounter Details Date Type Department Care Team Description 08/06/2018 Telephone Neurology [facility] [address] [place] [address] Lilibeth Serrato CRNP [address] [place] [address] [phone] Appointment (BUN and Creatinine) Allergies No Known Allergiesdocumented as of this encounter (statuses as of 08/20/2018) Medications Medication Sig Dispensed Refills Start Date End Date Status ASPIRIN 325 MG PO TABS pt taking 2 tablets each night at bedtime 0 Active metoprolol succinate XL (TOPROL XL) 25 MG [id number]:Symptom atic PVCs Take 1 Tab by mouth daily. 90 Tab 3 07/31/2017 Active pravastatin (PRAVACHOL) 20 MG TabletIndications:Mixed dyslipidemia,PVC (premature ventricular contraction) Take 1 Tab by mouth every night at bedtime. 90 Tab 11 08/16/2017 Active finasteride (PROSCAR) 5 MG TabletIndications:BPH with obstruction/lower urinary tract symptoms Take 1 Tab by mouth daily. 30 Tab 5 10/25/2017 Active Linaclotide (LINZESS) 290 MCG CapsuleIndications:Irri table bowel syndrome with constipation Take 1 Cap by mouth daily before breakfast. 30 Cap 5 10/25/2017 Active tamsulosin (FLOMAX) 0.4 MG CapsuleIndications:BPH with obstruction/lower urinary tract symptoms TAKE 1 CAPSULE BY MOUTH ONCE A DAY 30 Cap 5 12/04/2017 Active DULoxetine (CYMBALTA) 30 MG CPEPIndications:Lumbar degenerative disc disease,Episode of recurrent major depressive disorder, unspecified depression episode severity (HCC) Take 1 Cap by mouth daily. Do not cut, crush or chew 30 Cap 5 07/29/2018 Active documented as of this encounter (statuses as of 08/20/2018) Active Problems Problem Noted Date PVC (premature ventricular contraction) 03/12/2016 Dizziness 03/12/2016 Palpitations 03/12/2016 Need for prophylactic vaccin ation against Streptococcus pneumoniae (pneumococcus) 08/19/2013 Routine medical exam 03/28/2010 Special screening for malignant neoplasm s, colon 03/28/2010 Mixed dyslipidemia Sarcoidosis of lung Overview: ? dx 30 yrs ago but recent cxr normal documented as of this encounter (statuses as of 08/20/2018) Resolved Problems Problem Noted Date Resolved Date [...] as of this encounter (statuses as of 08/20/2018) Immunizations Name Dates Previously Given Next Due [...] encounter Miscellaneous Notes * Telephone Encounter - Sarah Ponce RT (M) - 08/06/2018 11:39 AM EST Pt is scheduled for an MRI with and without contrast on 08/12/2018. Please order a BUN and Creatinine for pt and let him know to have them drawn before 08/12/2018. Thank you, [facility] MRI documented in this encounter Plan of Treatment Upcoming Encounters Date Type Specialty Care Team Description 08/25/2018 Imaging Radiology 09/02/2018 Imaging Cardiac Studies [facility], [facility] [address] [place] [place] [address] [phone] 09/29/2018 Office Visit Neurology Lilibeth Serrato CRNP [address] [place] [address] [phone] 10/27/2018 Office Visit Family Medicine Elias Duarte DO [address] [place] [address] [phone] 08/18/2019 Office Visit Cardiology Kings Camargo MD [address] [place] [place] [address] [phone] Scheduled Tests Name Priority Associated Diagnoses Order S chedule BUN Routine Balance problem Expected: 08/06/2018, Expires: 09/06/2018 CREATININE SERUM Routine Balance problem Expected: 08/06/2018, Expires: 09/06/2018 Health Maintenance Due Date Last Done Comments [...] Other symptoms involving nervous and musculoskeletal systems documented in this encounter Advance Directives Patient has advance care planning documents on file. For more information, please contact: [place] [phone]
--- OUTSIDE RECORDS SUMMARY | 2023-05-29 00:04 | External Medical Summary | Summary of Care ---
Author Name Unknown Organization [place] [address] Care Team Providers Care Bullard Operator Name Role Phone Elias Duarte DO Primary Care Provider Reason for Visit * Reason Comments Medication Refill Encounter Details Date Type Department Care Team Description 10/01/2018 Refill [facility] [address] [facility] [place] [address] Elias Duarte DO [address] [facility] [place] [address] [phone] Irritable bowel syndrome with constipation Allergies No Known Allergiesdocumented as of this encounter (statuses as of 10/01/2018) Medications Medication Sig Dispensed Refills Start Date End Date Status ASPIRIN 325 MG PO TABS pt taking 2 tablets each night at bedtime 0 Active metoprolol succinate XL (TOPROL XL) 25 MG [id number]:Sy mptomatic PVCs Take 1 Tab by mouth [...] mouth daily before breakfast. 30 Cap 5 10/01/2018 Active Linaclotide (LINZESS) 290 MCG CapsuleIndications :Irritable bowel syndrome with constipation Take 1 Cap by mouth daily before breakfast. 30 Cap 5 10/25/2017 9 Discontinued documented as of this encounter (statuses as of 10/01/2018) Active Problems Problem Noted Date PVC (premature ventricular contraction) 03/12/2016 Dizziness 03/12/2016 Palpitations 03/12/2016 Need for prophylactic vaccin ation against Streptococcus pneumoniae (pneumococcus) 08/19/2013 Routine medical exam 03/28/2010 Special screening for malignant neoplasm s, colon 03/28/2010 Mixed dyslipidemia Sarcoidosis of lung Overview: ? dx 30 yrs ago but recent cxr normal documented as of this encounter (statuses as of 10/01/2018) Resolved Problems Problem Noted Date Resolved Date [...] as of this encounter (statuses as of 10/01/2018) Immunizations Name Dates Previously Given Next Due [...] Telephone Encounter - Elias Duarte DO - 10/01/2018 12:44 PM EDT Signed Prescriptions: Disp Refills Linaclotide (LINZESS) 290 MCG Capsule 30 Cap 5 Sig: Take 1 Cap by mouth daily before breakfast. Authorizing Provider: ELIAS DUARTE * Telephone Encounter - India Palma OSA - 10/01/2018 8:54 AM EDT Pending Prescriptions: Disp Refills Linaclotide (LINZESS) 290 MCG Capsule 30 Cap 5 Sig: Take 1 Cap by mouth daily before breakfast. Last Office Visit: 07/29/2018 Next Office Visit: 10/27/2018 Scheduled Provider(s): Eilas Duarte DO If no future appointments scheduled, and last appointment is greater than a year ago, please schedule patient for a follow-up appointment Last date the medication was ordered: 10/25/17 Patient Phone Numbers Labs: Lab Results Component [...] Medicine Elias Duarte DO [address] [place] [address] [phone] 11/20/2018 Office Visit Neurology Lilibeth Serrato CRNP [address] [place] [address] [phone] 08/18/2019 Office Visit Cardiology Kings Camargo MD [...] syndrome documented in this encounter Advance Directives Patient has advance care planning documents on file. For more information, please contact: [place] [phone]
--- OUTSIDE RECORDS SUMMARY | 2023-05-29 00:04 | External Medical Summary | Summary of Care ---
Author Name Unknown Organization [place] [address] Care Team Providers Care Radiology Asst Name Role Phone Felicia Elias Primary Care Provider Reason for Visit * Reason Comments Medication Refill Encounter Details Date Type Department Care Team Description 10/03/2018 Refill Family Practice [facility] [address] [place] [address] Nam Wagoner, [facility] [address] [place] [address] [phone] Irritable bowel syndrome with constipation Allergies No Known Allergiesdocumented as of this encounter (statuses as of 10/03/2018) Medications Medication Sig Dispensed Refills Start Date End Date Status ASPIRIN 325 MG PO TABS pt taking 2 tablets each night at bedtime 0 Active metoprolol succinate XL (TOPROL XL) 25 MG [id number]:Sy mptomatic PVCs Take 1 Tab by mouth [...] before breakfast. 30 Cap 5 10/03/2018 Active Linaclotide (LINZESS) 290 MCG CapsuleIndications :Irritable bowel syndrome with constipation Take 1 Cap by mouth daily before breakfast. 30 Cap 5 10/01/2018 9 Discontinued documented as of this encounter (statuses as of 10/03/2018) Active Problems Problem Noted Date PVC (premature ventricular contraction) 03/12/2016 Dizziness 03/12/2016 Palpitations 03/12/2016 Need for prophylactic vaccin ation against Streptococcus pneumoniae (pneumococcus) 08/19/2013 Routine medical exam 03/28/2010 Special screening for malignant neoplasm s, colon 03/28/2010 Mixed dyslipidemia Sarcoidosis of lung Overview: ? dx 30 yrs ago but recent cxr normal documented as of this encounter (statuses as of 10/03/2018) Resolved Problems Problem Noted Date Resolved Date [...] as of this encounter (statuses as of 10/03/2018) Immunizations Name Dates Previously Given Next Due [...] Telephone Encounter - Elias Duarte DO - 10/03/2018 4:19 PM EDT Signed Prescriptions: Disp Refills Linaclotide (LINZESS) 290 MCG Capsule 30 Cap 5 Sig: Take 1 Cap by mouth daily before breakfast. Authorizing Provider: ELIAS DUARTE * Telephone Encounter - Karo Gao LPN - 10/03/2018 12:28 PM EDT Pending Prescriptions: Disp Refills Linaclotide (LINZESS) 290 MCG Capsule 30 Cap 5 Sig: Take 1 Cap by mouth daily before breakfast. * Telephone Encounter - Nam Wagoner [facility] - 10/03/2018 12:08 PM EDT [facility]. Thank You. documented in this encounter Plan of Treatment Upcoming Encounters Date Type Specialty Care Team Description 10/27/2018 Office Visit Family Medicine Elias Duarte DO [address] [place] [address] 11/20/2018 Office Visit Neurology Lilibeth Serrato CRNP [address] [facility] [place] [address] [phone] 08/18/2019 Office Visit Cardiology Kings Camargo MD [address] [place] [id number] Health Maintenance Due Date Last Done Comments [...] For more information, please contact: [place] [phone]
--- OUTSIDE RECORDS SUMMARY | 2023-05-29 00:04 | External Medical Summary | Summary of Care ---
Author Name Unknown Organization [facility] Address [place] [address] Care Team Providers Care Fan Engine Engineer Name Role Phone Elias Cleary DO Primary Care Provider Reason for Visit * Reason Comments Follow Up pt here to discuss r esults of medication trials Encounter Details Date Type Department Care Team Description 10/27/2018 Office Visit Family Practice [facility] [address] [facility] [place] [address] Elias Cleary DO [address] [facility] [place] [address] [phone] Bradykinesia*; Multiple lacunar infarcts (HCC); Mixed dyslipidemia; Episode of recurrent major depressive disorder, unspecified depression episode severity (HCC) Allergies No Known Allergiesdocumented as of this encounter (statuses as of 12/04/2018) Medications Medication Sig Dispensed Refills Start Date End Date Status ASPIRIN 325 MG PO TABS 1 tab at bedtime 0 Active metoprolol succinate XL (TOPROL XL) 25 MG [id number]:Symp tomatic PVCs Take 1 Tab by mouth daily. 90 Tab 3 07/31/2017 Active pravastatin (PRAVACHOL) 20 MG TabletIndications:Mi xed dyslipidemia,PVC (premature ventricular contraction) Take 1 Tab by mouth every night at bedtime. 90 Tab 11 08/16/2017 Active finasteride (PROSCAR) 5 MG TabletIndications:BP H with obstruction/lower urinary tract symptoms Take 1 Tab by mouth daily. 30 Tab 5 10/25/2017 Active tamsulosin (FLOMAX) 0.4 MG CapsuleIndications:B PH [...] before breakfast. 30 Cap 5 10/03/2018 Active documented as of this encounter (statuses as of 12/04/2018) Active Problems Problem Noted Date Episode of [...] as of this encounter (statuses as of 12/04/2018) Resolved Problems Problem Noted Date Resolved Date [...] as of this encounter (statuses as of 12/04/2018) Immunizations Name Dates Previously Given Next Due [...] Vital Sign Reading Time Taken Blood Pressure 128/88 10/27/2018 1:35 PM EDT Pulse 72 10/27/2018 1:35 PM EDT Temperature 36.6 C (97.8 F) 10/27/2018 1 :35 PM EDT Respiratory Rate 16 10/27/2018 1:35 PM EDT Oxygen Saturation - - Inhaled Oxygen Concentration - - Weight 77.6 kg (171 lb 2 oz) 10/27/2018 1:35 PM EDT Height 177.8 cm (5' 10") 10/27/2018 1:3 5 PM EDT Body Mass Index 24.55 10/27/2018 1:35 PM EDT documented in this encounter Progress Notes * Elias Cleary DO - 12/04/2018 9:55 PM EDT Chief Complaint Patient presents with Follow Up pt here to discuss results of medication trials HPI: Patient is a 68-year-old male here for medical follow-up of tremor and gait disturbance. Patient had neurology evaluation and MRI brain 08/25/2018 showing multiple lacunar infarcts. Patient started on carbidopa levodopa 25-100 mg 1 tab three times daily for Parkinson features. Lab studies reviewed showing elevated triglycerides 247, total cholesterol 154, HDL 44, LDL 61. Labs otherwise unremarkable. Patient denies chest pain, palpitations or edema. Patient denies cough or sputum. Patient denies abdominal pain, nausea vomiting diarrhea constipation. Patient denies headache, blurred vision, slurred speech, muscle weakness or numbness. Patient complains of flat and depressed mood. Patient de nies sleep disturbance or suicidal ideation. Review of systems otherwise negative Past Medical [...] major depressive disorder (HCC) F33.9 Current Outpatient Medications Medication Sig Dispense Refill Linaclotide (LINZESS) 290 MCG Capsule Take 1 [...] performed by Dale Whitlock MD at ENDOSCOPY [facility] COLONOSCOPY, DIAGNOSTIC (RECTUM) 12/28/2015 adenomatous polyp, diverticulosis, repeat 3 yrs/COLONOSCOPY FLEXIBLE PROXIMAL DIAGNOSTIC performed by Enid John MD at ENDOSCOPY [facility] COLONOSCOPY/REMOVE LESION 04/27/2010 2 polyps tubulovillous [...] Last attempt to quit: 07/22/1974 Years since quittin.4 Smokeless tobacco: Never Used Substance Use Topics Alcohol use: No Review of Systems: No nausea, vomiting or diarrhea. No chest pain or shortness of breath, No fatigue. No fevers, chillor night sweats. All other ROS examined in detail and are negative except as documented in HPI. All other systems reviewed and are negative. Objective: BP 128/88 | Pulse 72 | Temp (Src) 97.8 (Tympanic) | Resp 16 | Ht 5' 10" (1.778m) | Wt 171 lbs 2 oz (77.622kg) | BMI 24.55 kg/m | BSA 1.96 m Physical Exam: [...] with decreased range of motion lumbar flexion Extremities: no edema, no clubbing, no cyanosis Neuro Exam: alert & oriented x 3 with fluent speech, no focal motor/sensory deficits, gait normal, reflexes normal and symmetric, gait bradykinetic Skin: skin color, texture, turgor are normal, no rashes or significant lesions ASSESSMENT/PLAN: R25.8 Bradykinesia (primary encounter diagnosis) Continue present medication Carbidopa-levodopa 25-100 mg 1 tab three times daily Follow with neurologist I63.81 Multiple lacunar infarcts (hcc) Aspirin 325 mg 1 tab daily E78.2 Mixed dyslipidemia Pravachol 20 mg 1 tab daily Low-fat low-cholesterol high-fiber diet and exercise F33.9 Episode of recurrent major depressive disorder, unspecified depression episode severity (hcc) Cymbalta 30 mg 1 tab daily Follow up: Return in about 3 months (around 01/26/2019). Elias Cleary DO 12/04/18 documented in this encounter Nursing Notes * Amy Humphries LPN - 10/27/2018 1:34 PM EDT The patient has been properly identified by confirmation of name and date of . Chief Complaint Patient presents with Follow Up pt here to discuss results of medication trials documented in this encounter Plan of Treatment Upcoming Encounters Date Type Specialty Care Team Description 01/26/2019 Office Visit Family Medicine Elias Cleary DO [address] [place] [address] [phone] 05/28/2019 Office Visit Neurology Lilibeth Serrato CRNP [address] [place] [address] [phone] 08/18/2019 Office Visit Cardiology Kings Camargo MD [address] [place] [address] [phone] Health Maintenance Due Date Last Done Comments [...] as of this encounter Visit Diagnoses Diagnosis Bradykinesia- Primary Abnormal involuntary movements Multiple lacunar infarcts (HCC) Unspecified cerebral artery occlusion with cerebral infarction Mixed dyslipidemia Mixed hyperlipidemia Episode of recurrent major depressive disorder, unspecified depression episode severity (HCC) documented in this encounter Advance Directives Patient has advance care planning documents on file. For more information, please contact: [place] [phone]
--- OUTSIDE RECORDS SUMMARY | 2023-05-29 00:04 | External Medical Summary | Summary of Care ---
Author Name Unknown Organization [place] [address] Care Team Providers Care Logistics Analyst Name Role Phone Elias Duarte DO Primary Care Provider Reason for Referral * Precert (Routine) Status Reason Specialty Diagnoses / Procedures Referred By Contact Referred To Contact Pending Review Precert Cardiac Studies Diagnoses Palpitations PVC (premature ventricular contraction) CARROLL (dyspnea on exertion) Procedures ECHO, STRESS (EXERCISE) Kings Camargo MD [address] [facility] [place] [address] Reason for Visit * Reason Comments Follow Up Encounter Details Date Type Department Care Team Description 08/18/2018 Office Visit Cardiology, [facility] [address] [place] [address] Kings Camargo MD [address] [facility] [place] [address] [phone] PVC (premature ventricular contraction)*; Palpitations; CARROLL (dyspnea on exertion); Mixed dyslipidemia Allergies No Known Allergiesdocumented as of this encounter (statuses as of 08/18/2018) Medications Medication Sig Dispensed Refills Start Date End Date Status ASPIRIN 325 MG PO TABS pt taking 2 tablets each night at bedtime 0 Active metoprolol succinate XL (TOPROL XL) 25 MG [id number]:Symp tomatic PVCs Take 1 Tab by mouth daily. 90 Tab 3 07/31/2017 Active pravastatin (PRAVACHOL) 20 MG TabletIndications:Mi xed dyslipidemia,PVC (premature ventricular contraction) Take 1 Tab by mouth every night at bedtime. 90 Tab 11 08/16/2017 Active finasteride (PROSCAR) 5 MG TabletIndications:BP H with obstruction/lower urinary tract symptoms Take 1 Tab by mouth daily. 30 Tab 5 10/25/2017 Active Linaclotide (LINZESS) 290 MCG CapsuleIndications:I rritable [...] or chew 30 Cap 5 07/29/2018 Active Meloxicam 15 MG TabletIndications:Karla mbar degenerative disc disease,Lumbosacral radiculopathy Take 1 Tab by mouth daily. for pain. 30 Tab 5 01/24/2018 08/18/2018 Discontinued documented as of this encounter (statuses as of 08/18/2018) Active Problems Problem Noted Date PVC (premature ventricular contraction) 03/12/2016 Dizziness 03/12/2016 Palpitations 03/12/2016 Need for prophylactic vaccin ation against Streptococcus pneumoniae (pneumococcus) 08/19/2013 Routine medical exam 03/28/2010 Special screening for malignant neoplasm s, colon 03/28/2010 Mixed dyslipidemia Sarcoidosis of lung Overview: ? dx 30 yrs ago but recent cxr normal documented as of this encounter (statuses as of 08/18/2018) Resolved Problems Problem Noted Date Resolved Date [...] as of this encounter (statuses as of 08/18/2018) Immunizations Name Dates Previously Given Next Due [...] Vital Sign Reading Time Taken Blood Pressure 142/96 08/18/2018 11:56 AM EST Pulse 76 08/18/2018 11:56 AM EST Temperature - - Respiratory Rate 16 08/18/2018 11:5 6 AM EST Oxygen Saturation - - Inhaled Oxygen Concentration - - Weight 75.3 kg (166 lb) 08/18/2018 11:5 6 AM EST Height - - Body Mass Index 23.82 08/18/2018 11:56 AM EST documented in this encounter Progress Notes * Kings Camargo MD - 08/18/2018 11:47 AM EST 08/18/2018 Cardiology Follow Up Referring Provider: PCP: [place] [address] [phone] Chief Complaint: Routine followup, chronic ventricular ectopy SUBJECTIVE: Jacques Alicea is a 68 year old year old male past medical history 1. Chronic ventricular ectopy 2. Dyslipidemia 3. Remote history of sarcoidosis greater than 30 years past without evidence of recurrence Patient presents today in routine followup denies any acute cardiac decline. Walks his dog several times per day with general good tolerance other than mild dyspnea on exertion when climbing up hills. Is aware of occasional ectopic beats at times but denies syncope or near syncope. Admits to occasional lightheadedness on sudden standing. His current being evaluated for possible early parkinsonism Denies any recent fevers or chills infection. Notes no change in appetite or weight. Denies dysphagia. Sleeps well at night. A Complete Review of 10 Systems is as stated above or negative. Patient Active Problem List Diagnosis Code Mixed dyslipidemia E78.2 Sarcoidosis of lung (HCC) D86.0 Routine medical exam Z00.00 Special screening for malignant neoplasms, colon Z12.11 Need for prophylactic vaccination against Streptococcus pneumoniae (pneumococcus) Z23 PVC (premature ventricular contraction) I49.3 Dizziness R42 Palpitations R00.2 Review of patient's allergies indicates: No Known Allergies Current Outpatient Medications Medication Sig Dispense Refill DULoxetine (CYMBALTA) 30 MG CPEP Take 1 Cap by mouth daily. Do not cut, crush or chew 30 Cap 5 Meloxicam 15 MG Tablet Take 1 Tab by mouth daily. for pain. 30 Tab 5 tamsulosin (FLOMAX) 0.4 MG Capsule TAKE 1 CAPSULE BY MOUTH ONCE A DAY 30 Cap 5 finasteride (PROSCAR) 5 MG Tablet Take 1 Tab by mouth daily. 30 Tab 5 Linaclotide (LINZESS) 290 MCG Capsule Take 1 Cap by mouth daily before breakfast. 30 Cap 5 pravastatin (PRAVACHOL) 20 MG Tablet Take 1 Tab by mouth every night at bedtime. 90 Tab 11 metoprolol succinate XL (TOPROL XL) 25 MG TB24 Take 1 Tab by mouth daily. 90 Tab 3 ASPIRIN 325 MG PO TABS pt taking 2 tablets each night at bedtime OBJECTIVE/PHYSICAL EXAMINATION: BP 142/96 | Pulse 76 | Resp 16 | Wt 166 lbs (75.297kg) | BMI 23.82 kg/m | BSA 1.93 m General: no acute distress and stated [...] mild resting tremor Data: EKG performed today, 08/18/2018 , and reviewed personally : Sinus rhythm rate of 73 with poor progression V1 V2 no ectopy, QT corrected 434 Lipid Panel Results: LIPID PANEL Gabriel Dt/Tm Resulted Value Status HOURS FASTING (hours) 08/15/17 8:12A 08/15/17 12 F TRIGLYCERIDES (mg/dL) 08/15/17 8:12A 08/15/17 146 F CHOLESTEROL (mg/dL) 08/15/17 8:12A 08/15/17 180 F HDL (mg/dL) 08/15/17 8:12A 08/15/17 32* F CHOL/HDL RATIO ( ) 08/15/17 8:12A 08/15/17 5.6 F LDL (CALCULATED) (mg/dL) 08/15/17 8:12A 08/15/17 119 F ASSESSMENT: 68 year old year old male Followed for history of are chronic ventricular ectopy cardiac risk factors of dyslipidemia Patient notes no acute cardiac decline though does admit to mild dyspnea on exertion with persistent presence of chronic chronic ventricular ectopy. Current be evaluated in being considered for treatment of parkinsonism PLAN: Stress echocardiography will be ordered for above symptoms also to reassess LV systolic function the setting of frequent ventricular ectopy chronically. Lab work ordered to reassess lipids, metabolic panel DISPOSITION: Will review results of studies and report to patient. Routine followup scheduled 1 year's time Kings Camargo MD [facility] Cardiology, [facility] [address] [place] [address] documented in this encounter Nursing Notes * Amanda Larry LPN - 08/18/2018 11:55 AM EST Examination Room: 14 Name: Jacques Alicea Date of : (1950). Reason for Visit: follow up/annual Interim Hospitalization(s): denies Problems/Concerns: reports new dx of Parkinson's, waiting to have MRI Chest Pain/SOB: denies [facility] is a way you can talk to your provider online through e-mail. Would you like to sign up? I can activate it for you? ALREADY ACTIVE documented in this encounter Miscellaneous Notes * Addendum Note - Meagan Holley TECH - 08/18/2018 12:43 PM EST Addended by: MEAGAN HOLLEY on: 08/18/2018 12:43 PM Modules accepted: Orders documented in this encounter Plan of Treatment Upcoming Encounters Date Type Specialty Care Team Description 08/25/2018 Imaging Radiology 09/02/2018 Imaging Cardiac Studies Gw, Rate And Cost Analyst 1 [address] [place] [address] [phone] 09/29/2018 Office Visit Neurology Lilibeth Serrato CRNP [address] [facility], [place] [address] [phone] 10/27/2018 Office Visit Family Medicine Elias Duarte DO [address] [place] [address] [phone] 08/18/2019 Office Visit Cardiology Kings Camargo MD [address] [place] [address] [phone] Pending Results Name Priority Associated Diagnoses Date/Ti me LIPID PANEL Routine Palpitations PVC (premature ventricular contraction) CARROLL (dyspnea on exertion) Mixed dyslipidemia 08/18/2018 12:44 PM EST CREATININE SERUM Routine 08/18/2018 12:44 PM EST BUN Routine 08/18/2018 12:4 4 PM EST Scheduled Tests Name Priority Associated Diagnoses Order S chedule ECHO, STRESS (EXERCISE) Routine Palpitations PVC (premature ventricular contraction) CARROLL (dyspnea on exertion) Expected: 09/01/2018 (Approximate), Expires: 12/16/2018 LIPID PANEL Routine Palpitations PVC (premature ventricular contraction) CARROLL (dyspnea on exertion) Mixed dyslipidemia Expected: 08/18/2018 (Approximate), Expires: 11/16/2018 Health Maintenance Due Date Last Done Comments COLONOSCOPY-EVERY 3 YRS AGES 18-100 12/27/2018 12/28/2015, 12/28/2015, 10/09/2012, Additional history exists DIABETES SCREEN EVERY 3 YRS-AGE 45 AND ABOVE 08/15/2020 08/15/2017, 08/15/2017, 03/12/2016, Additional history exists LIPID SCREEN EVERY 5 YRS-MEN AGE 35-75 08/15/2022 08/15/2017, 03/12/2016, 10/20/2014, Additional history exists DTaP,Tdap,and Td Vaccines (3 [...] ventricular contraction)- Primary Other premature beats Palpitations CARROLL (dyspnea on exertion) Other dyspnea and respiratory abnormality Mixed dyslipidemia Mixed hyperlipidemia documented in this encounter Advance Directives Patient has advance care planning documents on file. For more information, please contact: [place] [address]"
--- OUTSIDE RECORDS SUMMARY | 2023-05-29 00:04 | External Medical Summary | Summary of Care ---
Author Name Unknown Organization [place] [address] Care Team Providers Care Toolroom Clerk Name Role Phone Elias Duarte DO Primary Care Provider Reason for Referral * Precert (Routine) Status Reason Specialty Diagnoses / Procedures Referred By Contact Referred To Contact Pending Review Precert Cardiac Studies Diagnoses Palpitations PVC (premature ventricular contraction) CARROLL (dyspnea on exertion) Procedures ECHO, STRESS (EXERCISE) Kings Camargo MD [address] [facility] [place] [address] Reason for Visit * Reason Comments Cardiology Study Stress Echo Encounter Details Date Type Department Care Team Description 09/11/2018 Imaging Cardiac Studies, [facility] [address] [facility] [place] [address] Gw, Needle Setter 1 [address] [facility] [place] [address] [phone] Palpitations; PVC (premature ventricular contraction); CARROLL (dyspnea on exertion) Allergies No Known Allergiesdocumented as of this encounter (statuses as of 09/11/2018) Medications Medication Sig Dispensed Refills Start Date End Date Status ASPIRIN 325 MG PO TABS pt taking 2 tablets each night at bedtime 0 Active metoprolol succinate XL (TOPROL XL) 25 MG [id number]:Symptom atic PVCs Take 1 Tab by mouth [...] as of this encounter (statuses as of 09/11/2018) Active Problems Problem Noted Date PVC (premature ventricular contraction) 03/12/2016 Dizziness 03/12/2016 Palpitations 03/12/2016 Need for prophylactic vaccin ation against Streptococcus pneumoniae (pneumococcus) 08/19/2013 Routine medical exam 03/28/2010 Special screening for malignant neoplasm s, colon 03/28/2010 Mixed dyslipidemia Sarcoidosis of lung Overview: ? dx 30 yrs ago but recent cxr normal documented as of this encounter (statuses as of 09/11/2018) Resolved Problems Problem Noted Date Resolved Date [...] as of this encounter (statuses as of 09/11/2018) Immunizations Name Dates Previously Given Next Due [...] emmanuel ilable. documented as of this encounter Progress Notes * Abhi Ely TECH - 09/11/2018 2:52 PM EST Stress Echo completed today per provider order. No complications. documented in this encounter Plan of Treatment Upcoming Encounters Date Type Specialty Care Team Description 09/29/2018 Office Visit Neurology Lilibeth Serrato CRNP [address] [facility], [place] [address] [phone] 10/27/2018 Office Visit Family Medicine Elias Duarte DO [address] [place] [address] [phone] 08/18/2019 Office Visit Cardiology Kings Camargo MD [...] as of this encounter Visit Diagnoses Diagnosis Palpitations PVC (premature ventricular contraction) Other premature beats CARROLL (dyspnea on exertion) Other dyspnea and respiratory abnormality documented in this encounter Advance Directives Patient has advance care planning documents on file. For more information, please contact: [place] [phone]
--- OUTSIDE RECORDS SUMMARY | 2023-05-29 00:05 | External Medical Summary ---
Author Name Unknown Address Unknown Organization [id number]:Performed at [facility] [address] [place] [id number] Laboratory Report Ordering Provider Test Date Status NINFA BLOUNT 08/18/2018 12:44:00 Final Observation Date Value Abnormality Reference Status Fasting status Patient Ql Reported 08/18/2018 12:45 >8 HOURS Final Triglyceride 08/18/2018 18:02 247 Above high normal <2 00 Final TRIGLYCERIDE REFERENCE RANGE S (mg/dL) <150 NORMAL 150-199 BORDERLINE HIGH 200- 499 HIGH >499 VERY HIGH Cholesterol 08/18/2018 18:02 154 <200 F inal TOTAL CHOLESTEROL REFERENCE RANGES(mg/dL) <200 DESIRABLE 200-239 BORDERLINE HIGH >239 HIGH HDL 08/18/2018 18:02 44 >39 Fin al HDL CHOLESTEROL REFERENCE RA NGES(mg/dL) <40 LOW(UNDESIRABLE) >59 HIGH(DESIRABLE) Cholesterol / HDL ratio 08/18/2018 18:02 3.5 Final LDL, (calculated) 08/18/2018 18:02 61 0-129 Final LDL CHOLESTEROL REFERENCE RA NGES(mg/dL) <100 OPTIMAL GOAL FOR HIGH RISK PATIENTS 100-129 NEAR OR ABOVE NORMAL 130-159 BORDERLINE HIGH 160-189 HIGH >189 VERY HIGH Performing Location Performed at [facility] [address] [place] [address]
--- OUTSIDE RECORDS SUMMARY | 2023-05-29 00:05 | External Medical Summary | Summary of Care ---
Author Name Unknown Organization [place] [address] Care Team Providers Care Product Introduction Manager Name Role Phone Elias Duarte DO Primary Care Provider Reason for Visit * Reason Comments Medication Administration Flu and/or Pne umo Inj Encounter Details Date Type Department Care Team Description 06/19/2018 Immunization/In jection [facility]illary [facility] [address] [facility] [address] [phone] Need for prophylactic vaccination and inoculation against influenza* Allergies No Known Allergiesas of this encounter Medications Medication Sig Dispensed Refills Start Date End Date Status ASPIRIN 325 MG PO TABS one pill each day at bedtime 0 Active metoprolol succinate XL (TOPROL XL) 25 MG [id number]:Symptom atic PVCs Take 1 Tab by mouth [...] A DAY 30 Cap 5 12/04/2017 Active Meloxicam 15 MG TabletIndications:Lumba r degenerative disc disease,Lumbosacral radiculopathy Take 1 Tab by mouth daily. for pain. 30 Tab 5 01/24/2018 Active as of this encounter Active Problems Problem Noted Date PVC (premature ventricular contraction) 03/12/2016 Dizziness 03/12/2016 Palpitations 03/12/2016 Need for prophylactic vaccin ation against Streptococcus pneumoniae (pneumococcus) 08/19/2013 Routine medical exam 03/28/2010 Special screening for malignant neoplasm s, colon 03/28/2010 Mixed dyslipidemia Sarcoidosis of lung Overview: ? dx 30 yrs ago but recent cxr normal as of this encounter Resolved Problems Problem Noted Date Resolved Date Impaired fasting glucose 03/12/2016 018 Constipation 02/12/2014 10/05/2014 Impacted cerumen 02/12/2014 10/05/2014 Screening for prostate cancer 07/24/2012 Palpitations 09/20/2011 08/19/2013 Spasm of muscle 05/15/2011 08/19/2013 Plantar fibromatosis 04/23/2011 08/19/2013 Urinary frequency 03/28/2010 08/19/2013 Impaired fasting glucose 014 Stress reaction, emotional 08/19 Stress reaction, emotional 03/28 Overview: hx of depression/ anxiety prior on meds as of this encounter Immunizations Name Dates Previously Given Next Due [...] older)(Boostrix) 02/12/2014 Varicella Zoster Vaccine (Adult) 02/12/2014 as of this encounter Social History Tobacco [...] End No recent travel history emmanuel ilable. as of this encounter Patient Instructions * Patient Instructions* Aleta Colón LPN - 06/19/2018 9:41 AM EST ~~PATIENT INSTRUCTIONS FOR FLU SHOT~~ Possible side [...] OF EYES, FACE OR INSIDE OF NOSE. in this encounter Progress Notes * Aleta Colón LPN - 06/19/2018 9:40 AM EST PRE - ADMINISTRATION DOCUMENTATION Are you allergic to latex? No Are you experiencing any cold symptoms or fever? No Have you had Guillain-[place] Syndrome (an illness that causes paralysis)? No Have you had the flu shot in the past? YES Have you ever had a reaction to the flu shot? No Aleta Colón LPN, 06/19/2018 9:40 AM Immunization Administration Documentation Time Out Procedure Performed: Yes Patient Identified (Ask Name/Date of ): Yes Does the patient have a fever greater than 101 degrees today? No Patient allergic to latex? No VFC Stock: No Immunization(s) verified: Yes, Immunization Name: Flu, VIS Sheet(s) given: No Verified Side and Site: Yes Verified Shot(s) with Parent(s)/Patient: Yes in this encounter Plan of Treatment Upcoming Encounters Date Type Specialty Care Team Description 08/08/2018 [facility] Visit [facility] [address] [phone] 08/18/2018 Office Visit Cardiology Kings Camargo MD [address] [place] [address] Health Maintenance Due Date Last Done Comments Influenza Vaccine (FLU shot) (#1) 2018 07/23/2017, 06/28/2015, 05/04/2014, Additional history exists COLONOSCOPY-EVERY 3 YRS AGES 18-100 12/27/2018 12/28/2015, 12/28/2015, 10/09/2012, Additional history exists DIABETES SCREEN EVERY 3 YRS- AGE 45 AND ABOVE 08/15/2020 08/15/2017, 08/15/2017, 03/12/2016, Additional history exists LIPID SCREEN EVERY 5 YRS-MEN AGE 35-75 08/15/2022 08/15/2017, 03/12/2016, 10/20/2014, Additional history exists DTaP,Tdap,and Td Vaccines (3 - Td) 02/13/20242013, 07/14/2009 PNEUMOCOCCAL ADULT 65 YRS AND OVER Completed 2015, 08/19/2013 ABDOMINAL AORTIC ANEURYSM (A AA) SCREENING Completed 07/25/2017 as of this encounter Implants Not on fileas of this encounter Visit Diagnoses Diagnosis Need for prophylactic vaccination and inoculation against influenza- Primary in this encounter Advance Directives Patient has advance care planning documents on file. For more information, please contact: [place] [phone]
--- OUTSIDE RECORDS SUMMARY | 2023-05-29 00:05 | External Medical Summary | Summary of Care ---
Author Name Unknown Organization [place] [address] Care Team Providers Care Glass Glazier Name Role Phone FeliciaElias Primary Care Provider Encounter Details Date Type Department Care Team Description 08/01/2018 Scan Encounter Neurology [facility] [address] [place] [address] Lilibeth Serrato CRNP [address] [place] [address] [phone] <No scans attached> Allergies No Known Allergiesdocumented as of this encounter (statuses as of 08/15/2018) Medications Medication Sig Dispensed Refills Start Date End Date Status ASPIRIN 325 MG PO TABS pt taking 2 tablets each night at bedtime 0 Active metoprolol succinate XL (TOPROL XL) 25 MG [id number]:Symptom atic PVCs Take 1 Tab by mouth [...] for pain. 30 Tab 5 01/24/2018 Active DULoxetine (CYMBALTA) 30 MG CPEPIndications:Lumbar degenerative disc disease,Episode of recurrent major depressive disorder, unspecified depression episode severity (HCC) Take 1 Cap by mouth daily. Do not cut, crush or chew 30 Cap 5 07/29/2018 Active documented as of this encounter (statuses as of 08/15/2018) Active Problems Problem Noted Date PVC (premature ventricular contraction) 03/12/2016 Dizziness 03/12/2016 Palpitations 03/12/2016 Need for prophylactic vaccin ation against Streptococcus pneumoniae (pneumococcus) 08/19/2013 Routine medical exam 03/28/2010 Special screening for malignant neoplasm s, colon 03/28/2010 Mixed dyslipidemia Sarcoidosis of lung Overview: ? dx 30 yrs ago but recent cxr normal documented as of this encounter (statuses as of 08/15/2018) Resolved Problems Problem Noted Date Resolved Date [...] as of this encounter (statuses as of 08/15/2018) Immunizations Name Dates Previously Given Next Due [...] Encounters Date Type Specialty Care Team Description 08/18/2018 Office Visit Cardiology Kings Camargo MD [address] [facility] [place] [address] [phone] 08/25/2018 Imaging Radiology 09/29/2018 Office Visit Neurology Lilibeth Serrato CRNP 200 [facility] [place] [address] [phone] 10/27/2018 Office Visit Family Medicine Elias Duarte DO [address] [facility] [place] [address] [phone] Health Maintenance Due Date Last Done Comments [...] AORTIC ANEURYSM (A AA) SCREENING Completed 07/25/2017 Influenza Vaccine (FLU shot) Completed , 07/23/2017, 06/28/2015, Additional history exists documented as of this encounter Implants Not on filedocumented as of this encounter Advance Directives Patient has advance care planning documents on file. For more information, please contact: [place] [phone]
--- OUTSIDE RECORDS SUMMARY | 2023-05-29 00:05 | External Medical Summary ---
Author Name Unknown Address 132 [facility] [place] [address] Phone Organization K0G:[facility] [place] [facility] 132 [facility] [place] [address] Laboratory Report Ordering Provider Test Date Status NINFA BLOUNT 08/18/2018 12:44:00 Final Observation Date Value Abnormality Reference Status Creatinine 08/18/2018 14:26 0.8 0.6-1.2 Fi nal GFR should be used to assess renal function. Plasma/Serum creatinine may not be able to properly reflect renal function in some cases. E Glom Filt Rate 08/18/2018 14:26 >60.0 >60 Final If patient is [place] an, multiply estimated GFR by 1.159. Performing Location [facility] [place] [facility] [address] [facility] [address]
--- OUTSIDE RECORDS SUMMARY | 2023-05-29 00:05 | External Medical Summary | Summary of Care ---
Author Name Unknown Organization [place] [address] Care Team Providers Care Specialist Managers Name Role Phone Elias Duarte DO Primary Care Provider Reason for Referral * Precert (Routine) Status Reason Specialty Diagnoses / Procedures Referred By Contact Referred To Contact Pending Review Precert Radiology Diagnoses Balance problem Gait abnormality Tremor Procedures MRI BRAIN W WO CONTRAST Lilibeth Serrato CRNP [address] [place] [address] Reason for Visit * Reason Comments NEW PATIENT Referred by PCP for possible parkinsons. * Evaluate & Treat - Unlimited Visits (Within 10 days (routine)) Status Reason Specialty Diagnoses / Procedures Referred By Contact Referred To Contact Pending Review Specialty Services Required Neurology Diagnoses Gait disturbance Tremor of right hand Elias Duarte DO [address] [place] [address] Encounter Details Date Type Department Care Team Description 08/01/2018 Office Visit Neurology [facility] 200 [place] [address] Lilibeth Serrato CRNP [address] [place], [place] [id number] Balance problem*; Gait abnormality; Tremor Allergies No Known Allergiesas of this encounter Medications Medication Sig Dispensed Refills Start Date End Date Status ASPIRIN 325 MG PO TABS pt taking 2 tablets each night at bedtime 0 Active metoprolol succinate XL (TOPROL XL) 25 MG [id number]:Symptom atic PVCs Take 1 Tab by mouth [...] or chew 30 Cap 5 07/29/2018 Active as of this encounter Active Problems [...] history emmanuel ilable. as of this encounter Last Filed Vital Signs Vital Sign Reading Time Taken Blood Pressure 126/80 08/01/2018 12:49 PM EST Pulse 80 08/01/2018 12:49 PM EST Temperature 35.5 C (95.9 F) 08/01/2018 1 2:49 PM EST Respiratory Rate - - Oxygen Saturation - - Inhaled Oxygen Concentration - - Weight 74.8 kg (164 lb 14.4 oz) 019 12:49 PM EST Height - - Body Mass Index 23.66 08/01/2018 12:49 PM EST in this encounter Progress Notes * Lilibeth Serrato CRNP - 08/01/2018 1:14 PM EST HISTORY & PHYSICAL EXAMINATION - NEUROLOGY Name: Jacques Alicea Date: 08/01/2018 Time: 1:14 PM Referring Provider: Elias Duarte DO Chief Complaint Patient presents with NEW PATIENT Referred by PCP for possible parkinsons. 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 Long history of debilitating back and feet issues for about 50 years with degenerative disc diseasein his lumbar spine Currently walks about 4 miles a day with his dog He has noticed that he has lightheadedness when he stands up and he is unsure of his balance with aslight bit of spinning Muscles and joints appear tender and weak sometimes he feels like he has a hard time getting a fullbreath His body he describes it as feeling flu like without disease just tired and achy difficulty with moving smoothly his son says that when he is walking he looks like He is picking his way trying to be very careful He feels that his hands muscles joints do not feel connected they feel slow to respond injury like he has had too much coffee he has difficulty holding pen and writing his writing has become illegible. Small more motor control is poor and his hands tremor He difficulty with focus and has poor memory REVIEW OF SYSTEMS: Constitutional: No fever, no chills, nounintentional weight change Skin: No jaundice, no rash, no itching Eye: No recent vision problems, no diplopia, no blurred vision, no tearing, no Redness Ears, nose and throat:: No tinnitus, no voice changes, difficulty swallowing, No sore throat or sinus congestion No changes in hearing, has some changes in smell (hypoosmia) Respiratory : No shortness of breath, no cough, no wheezing Cardiovascular : No chest pain, no chest tightness, no palpitations, no dyspnea on exertion Gastrointestinal/ Genitourinary:: No loss of appetite, No abdominal pain, no nausea, no vomiting, no diarrhea, no constipation. No dysuria, no hematuria, no recent UTI. No incontinence Musculoskeletal : DDD lumbar spine Hematologic / lymphatic : Bleeding tendencies negative, bruising tendencies negative- takes asprineeveryday Psychiatric: No change in personality, affect or depression, no confusion/delirium Neurological: No difficulty with sleep, abnormal dreaming, walking or talking in sleep- denies confusion, trouble speaking, dysarthria, dysphagia, diplopia, facial droop, facial numbness, headache, weakness, numbness, cramping, pain, urinary or bowel symptoms, gait disturbance, vertigo, or abnormalmovements. All other pertinent review of system findings [...] ventricular contraction) I49.3 Dizziness R42 Palpitations R00.2 Past Medical History: Past Medical History: 04/27/10: Benign neoplasm of colon Comment: 2 polyps tubulovillous adenomas--repeat in 6 month 11/20/10: Benign neoplasm of colon Comment: diverticulosis, post polypectomy scar found at tatoo site in sigmoid and ascending colon, polyps x 3--adenomatous tissue --repeat in one yr No date: Impaired fasting glucose No date: Mixed dyslipidemia No date: Sarcoidosis of lung (HCC) Comment: ? dx 30 yrs ago but recent cxr normal No date: Stress reaction, emotional Comment: hx of depression/ anxiety prior on meds Current Outpatient Medications: Current Outpatient Medications Medication Sig Dispense Refill DULoxetine (CYMBALTA) 30 MG CPEP Take 1 Cap by mouth daily. Do not cut, crush or chew 30 Cap 5 finasteride (PROSCAR) 5 MG Tablet Take 1 Tab by mouth daily. 30 Tab 5 Meloxicam 15 MG Tablet Take 1 Tab by mouth daily. for pain. 30 Tab 5 tamsulosin (FLOMAX) 0.4 MG Capsule TAKE 1 CAPSULE BY MOUTH ONCE A DAY 30 Cap 5 Linaclotide (LINZESS) 290 MCG Capsule Take [...] taking 2 tablets each night at bedtime Family History: Family History Problem Relation Age of Onset Neurological Disorder Mother dementia No Past Hx Father NO HEALTH HISTORY Diabetes Sister dx in 's Hypertension Sister SOCIAL HISTORY: Social History Tobacco Use Smoking status: Former Smoker Packs/day: 1.00 Years: 12.00 Pack years: 12.00 Types: Cigarettes Last attempt to quit: 07/22/1974 Years since quittin.0 Smokeless tobacco: Never Used Substance Use Topics Alcohol use: No Drug use: No OBJECTIVE: Physical Examination: BP 126/80 | Pulse 80 | Temp (Src) 95.9 (Tympanic) | Wt 164 lbs 14.4 oz (74.798kg) | BMI 23.66 kg/m | BSA 1.92 m General appearance: healthy, alert, no distress NEUROLOGIC EXAMINATION: Alert and interactive Oriented to full date and location Oriented to person Speech fluent with no evidence of aphasia Fund of knowledge, conversational skills appear appropriate Cranial Nerves:Normal findings for Cranial Nerves II - XII 2 No Visual Defect on Confrontation; Pupils round, equal, reactive to light 3,4,6 Extraocular Movements Intact; no nystagmus 5 Facial Sensation Intact 7 No facial asymmetry 8 Intact hearing with finger rub 9,10 Palate symmetric, normal gag 11 Good shoulder shrug strength 12 Tongue Midline Gait normal: with steady with steps, base, arm swings light decrease on left as compared to right, turning- extra steps with turning, heel and toe walking and tandem gait- mild balance difficulty . Posture normal. Coordination/Motor: on efdprx-ag-etir, kgws-dolj-ecih and mild tremor - head and hands -Negativefor pronator drift of out stretched arms with eyes closed. Sensory: no sensory deficits Muscle Tone: cog wheel on right not on left ,hypomimia - tone was surprising better on left thenright - with rapid alternating movements worse on left then right on both hand and foot Strength:Normal - 5/5 all extremities Reflexes: Deep tendon reflexes were symmetrical and graded 2/5. LABORATORY: HEMOGLOBIN, A1C(%) Gabriel Dt/Tm Resulted Value [...] (CALCULATED) (mg/dL) 08/15/17 8:12A 08/15/17 119 F TSH(uIU/mL) Gabriel Dt/Tm Resulted Value Status [...] Studies: No recent imaging available. Differentials/ IMPRESSION: Because he was just started on Cymbalta last week were going to hold offon starting any Sinemet as a trial and see him back in 2 months after the MRI has been completed after he is stabilized on this new medication and we will do a trial of Sinemet at this point time he agrees with this plan and feels that this is a good I suspect that this is Parkinson's and that he would benefit from carbidopa levodopa. - when he comes back will do a slow build half a tablet a week with a goal of 3 tablets a day this she takes proximately 6 weeks to full dose ICD-10-CM 1. Balance problem R26.89 2. Gait abnormality R26.9 3. Tremor R25.1 ASSESSMENT/PLAN: Jacques was seen today for new patient. Diagnoses and all orders for this visit: Balance problem - MRI BRAIN W WO CONTRAST Gait abnormality - MRI BRAIN W WO CONTRAST Tremor - MRI BRAIN W WO CONTRAST R26.89 Balance problem (primary encounter diagnosis) Plan: Mri brain w wo contrast R26.9 Gait abnormality Plan: Mri brain w wo contrast R25.1 Tremor Plan: Mri brain w wo contrast Education / Consultation - Topics covered 1. Instructions for management (treatment) and/or follow up Medical Decision Making: Number of Diagnosis or Treatment Options: New problem; workup planned Amount or Complexity of Data Reviewed: Review/ order lab Review/ order rad Review/ order medicine Risk of Complications related to disease process anticipated between today and next encounter: Moderate: Undiagnosed new problem: Consulted with physician: Daniel Lin MD. Copy of note sent to PCP and Referring Provider. YOLI Rosas, [facility] Neurology [address] [address] 08/01/2018 1:14 PM (This note was completed using the dictation program Fluency Direct. As such, there may be misspellings, word substitutions, or other variations that should not change the essence of the clinical content of this encounter note.If there is need for further clarification, please direct questions to the provider listed above.) in this encounter Plan of Treatment Upcoming Encounters Date Type Specialty Care Team Description 08/08/2018 Office Visit Dermatology Ramona Rios MD [address] [place] [address] [phone] 08/12/2018 Imaging Radiology 08/18/2018 Office Visit Cardiology Kings Camargo MD [address] [place] [address] [place] [address] [phone] 09/29/2018 Office Visit Neurology Lilibeth Serrato CRNP [address] [place] [address] [phone] 10/27/2018 Office Visit Family Medicine Elias Duarte DO 132 [facility] [place] [address] [phone] Scheduled Tests Name Priority Associated Diagnoses Order S chedule MRI BRAIN W WO CONTRAST Routine Balance problem Gait abnormality Tremor Ordered: 08/01/2018 Health Maintenance Due Date Last Done Comments [...] Completed , 07/23/2017, 06/28/2015, Additional history exists as of this encounter Implants Not on fileas of this encounter Visit Diagnoses Diagnosis Balance problem- Primary Other symptoms involving nervous and musculoskeletal systems Gait abnormality Abnormality of gait Tremor Abnormal involuntary movements in this encounter Advance Directives Patient has advance care planning documents on file. For more information, please contact: [place] [phone]"
--- OUTSIDE RECORDS SUMMARY | 2023-05-29 00:05 | External Medical Summary | Summary of Care ---
Author Name Unknown Organization [place] [address] Care Team Providers Care Rag Baler Name Role Phone Felicia Elias Primary Care Provider [phone] Encounter Details Date Type Department Care Team Description 08/13/2018 Orders Only Cardiology, [facility] 132 [facility] [place] [address] Kings Camargo MD [address] [facility] [address] Palpitations* Allergies No Known Allergiesdocumented as of this encounter (statuses as of 08/13/2018) Medications Medication Sig Dispensed Refills Start Date End Date Status ASPIRIN 325 MG PO TABS pt taking 2 tablets each night at bedtime 0 Active metoprolol succinate XL (TOPROL XL) 25 MG [id number]:Symptom atic PVCs Take 1 Tab by mouth [...] as of this encounter (statuses as of 08/13/2018) Active Problems Problem Noted Date PVC (premature ventricular contraction) 03/12/2016 Dizziness 03/12/2016 Palpitations 03/12/2016 Need for prophylactic vaccin ation against Streptococcus pneumoniae (pneumococcus) 08/19/2013 Routine medical exam 03/28/2010 Special screening for malignant neoplasm s, colon 03/28/2010 Mixed dyslipidemia Sarcoidosis of lung Overview: ? dx 30 yrs ago but recent cxr normal documented as of this encounter (statuses as of 08/13/2018) Resolved Problems Problem Noted Date Resolved Date [...] as of this encounter (statuses as of 08/13/2018) Immunizations Name Dates Previously Given Next Due [...] Office Visit Cardiology Kings Camargo MD 132 [place] [address] [phone] 08/25/2018 Imaging Radiology 09/29/2018 Office Visit Neurology Lilibeth Serrato CRNP [address] [place] [address] [phone] 10/27/2018 Office Visit Family Medicine Elias Duarte DO 132 [facility] [place] [address] [phone] Scheduled Tests Name Priority Associated Diagnoses Order S chedule EKG Routine Palpitations Expected: 08/18/2018 (Approximate), Expi res: 10/11/2018 Health Maintenance Due Date Last Done Comments [...] this encounter Visit Diagnoses Diagnosis Palpitations- Primary documented in this encounter Advance Directives Patient has advance care planning documents on file. For more information, please contact: [place] [phone]
--- OUTSIDE RECORDS SUMMARY | 2023-05-29 00:05 | External Medical Summary | Summary of Care ---
Author Name Unknown Organization [place] [address] Care Team Providers Care Clinical Research Nurse Name Role Phone Elias Cleary DO Primary Care Provider Reason for Referral * Evaluate & Treat - Unlimited Visits (Within 10 days (routine)) Status Reason Specialty Diagnoses / Procedures Referred By Contact Referred To Contact Pending Review Specialty Services Required Neurology Diagnoses Gait disturbance Tremor of right hand Elias Cleary DO [address] [place] [address] Reason for Visit * Reason Comments Dizziness Encounter Details Date Type Department Care Team Description 07/29/2018 Office Visit Family Practice Health system [address] [place] [address] Elias Cleary DO [address] [place] [address] [phone] Gait disturbance*; Tremor of right hand; Lumbar degenerative disc disease; Sarcoidosis of lung ([facility]); Episode of recurrent major depressive disorder, unspecified depression episode severity ([facility]) Allergies No Known Allergiesas of this encounter Medications Medication Sig Dispensed Refills Start Date End Date Status ASPIRIN 325 MG PO TABS pt taking 2 tablets each night at bedtime 0 Active metoprolol succinate XL (TOPROL XL) 25 MG [id number]:Symptom atic PVCs Take 1 Tab by mouth [...] Vital Sign Reading Time Taken Blood Pressure 132/80 07/29/2018 1:46 PM EST Pulse 52 07/29/2018 1:46 PM EST Temperature 35.9 C (96.7 F) 07/29/2018 1 :46 PM EST Respiratory Rate 16 07/29/2018 1:46 PM EST Oxygen Saturation - - Inhaled Oxygen Concentration - - Weight 74.4 kg (164 lb) 07/29/2018 1:46 PM EST Height 177.8 cm (5' 10") 07/29/2018 1:4 6 PM EST Body Mass Index 23.53 07/29/2018 1:46 PM EST in this encounter Progress Notes * Elias Cleary DO - 08/06/2018 12:13 AM EST Chief Complaint Patient presents with Dizziness HPI: Patient is a 68-year-old male with complains of intermittent episodes of dizziness with postural changes.. Patient denies headache, blurred vision, slurred speech, muscle weakness or numbness. Patient denies chest pain, palpitations, shortness of breath or edema. Patient denies nasal congestion, earache or sore throat. Patient denies fatigue fever chills or sweats. Patient complains of chronic low back pain. Patient states his son has noticed that he has had a change in his walking gait. Patient also complains of tremor of right hand. Patient has a history of depression stable on currentmedication therapy. Patient denies sleep disturbance or suicidal ideation. Review of [...] I49.3 Dizziness R42 Palpitations R00.2 Current Outpatient Medications Medication Sig Dispense Refill [...] taking 2 tablets each night at bedtime Past Medical History: Diagnosis Date [...] Past Surgical History: Procedure Laterality Date COLONOSCOPY FLEXIBLE PROXIMAL DIAGNOSTIC 12/28/2015 Performed by Enid John MD at [facility] COLONOSCOPY FLEXIBLE PROXIMAL DIAGNOSTIC 10/09/2012 Performed by Dale Whitlock MD at [facility] COLONOSCOPY W/ LESION REMOVAL, SNARE 11/20/2010 diverticulosis, [...] performed by Enid John MD at [facility] COLONOSCOPY/REMOVE LESION 04/27/2010 2 polyps tubulovillous [...] systems reviewed and are negative. Objective: BP 132/80 | Pulse 52 | Temp (Src) 96.7 (Tympanic) | Resp 16 | Ht 5' 10" (1.778m) | Wt 164 lbs (74.390kg) | BMI 23.53 kg/m | BSA 1.92 m Physical Exam: General: alert, healthy and no distress Head: Normocephalic, No masses, lesions, tenderness or abnormalities Eye Exam: PERRLA, EOMI, Conjunctiva are pink and non-injected, fundi benign, sclera clear Ears: External ears normal, Canals clear, TM's Normal Nose: no mucosal erythema, no mucosal edema, no purulent discharge, no septal hematoma Oropharynx: no exudate, no erythema, lips, buccal mucosa, and tongue normal and dentition normal Neck: supple, no adenopathy, thyroid normal size, non-tender, without nodularity, trachea midline Lymph: no palpable lymphadenopathy Heart: regular rate & rhythm, no murmurs and no gallops Lungs: chest symmetric with normal AP diameter, no chest deformities noted, no chest wall tenderness, lungs clear to auscultation Pulses: radial=2/4, carotid=2/4 w/o bruits, posterior tibial=2/4 Abdomen: abdomen soft, non-tender, no masses, no hepatosplenomegaly, no rebound or guarding Back: No CVA tenderness, lumbar paravertebral muscle spasm and tenderness decreased range of motionlumbar flexion L1-L5 Extremities: no edema, no clubbing, no cyanosis Neuro Exam: alert & oriented x 3 with fluent speech, no focal motor/sensory deficits, flat affect, fine tremor right hand, mood depressed, no suicidal ideation, decreased DTRs 0/4 bilateral Achilles, slight decreased motor strength dorsiflexion left foot Skin: skin color, texture, turgor are normal, no rashes or significant lesions ASSESSMENT/PLAN: R26.9 Gait disturbance (primary encounter diagnosis) Plan: Consider referral to physical therapy Neurology referral op R25.1 Tremor of right hand Plan: Neurology referral op M51.36 Lumbar degenerative disc disease Plan: Warm compresses q.i.d. To affected area Duloxetine hcl 30 mg po cpep Sig:Take 1 cap by mouth daily. do not cut, crush or chew D86.0 Sarcoidosis of lung ([facility]) Continue present treatment F33.9 Episode of recurrent major depressive disorder, unspecified depression episode severity ([facility]) Plan: Duloxetine hcl 30 mg po cpep Sig:Take 1 cap by mouth daily. do not cut, crush or chew Follow up: Return in about 3 months (around 10/27/2018). Elias Cleary DO 08/06/18 in this encounter Nursing Notes * Amy Humphries, MARILYN - 07/29/2018 1:50 PM EST The patient has been properly identified by confirmation of name and date of . Chief Complaint Patient presents with Dizziness in this encounter Plan of Treatment Upcoming Encounters Date Type Specialty Care Team Description 08/08/2018 Office Visit Dermatology Ramona Rios MD [address] [place] [address] [phone] 08/12/2018 Imaging Radiology 08/18/2018 Office Visit Cardiology Kings Camargo MD [address] [place] [address] [phone] 09/29/2018 Office Visit Neurology Lilibeth Serrato CRNP [address] [facility] [address] [phone] 10/27/2018 Office Visit Family Medicine Elias Cleary DO [address] [place] [address] [phone] Scheduled Referrals Name Priority Associated Diagnoses Order S chedule NEUROLOGY REFERRAL OP Within 10 days (routine) Gait disturbance Tremor of right hand Ordered: 07/29/2018 Health Maintenance Due Date Last Done Comments [...] fileas of this encounter Visit Diagnoses Diagnosis Gait disturbance- Primary Abnormality of gait Tremor of right hand Lumbar degenerative disc disease Degeneration of lumbar or lumbosacral intervertebral disc Sarcoidosis of lung (HCC) Sarcoidosis Episode of recurrent major depressive disorder, unspecified depression episode severity ([facility]CC) in this encounter Advance Directives Patient has advance care planning documents on file. For more information, please contact: [place] [address]
--- OUTSIDE RECORDS SUMMARY | 2023-05-29 00:05 | External Medical Summary | Summary of Care ---
Author Name Unknown Organization [place] [address] Phone Care Team Providers Care Recycling Tech Name Role Phone Pam Duarte DO Primary Care Provider Reason for Visit * Reason Comments eRx-Medication Refill Encounter Details Date Type Department Care Team Description 12/04/2017 Refill Family Practice [facility] [address] [facility] [place] [address] [facility] [place] [address] [phone] BPH with obstruction/lower urinary tract symptoms Allergies No Known Allergiesas of this encounter Medications Prescription Sig. Disp. Refills Start Date End Date Status ASPIRIN 325 MG PO TABS one pill each day at bedtime Active metoprolol succinate XL (TOPROL XL) 25 MG [id number]:Sym ptomatic PVCs Take 1 Tab by mouth daily. 90 Tab 3 07/31/2017 Active pravastatin (PRAVACHOL) 20 MG TabletIndications:M ixed dyslipidemia,PVC (premature ventricular contraction) Take 1 Tab by mouth every night at bedtime. 90 Tab 11 08/16/2017 Active finasteride (PROSCAR) 5 MG TabletIndications:B PH with obstruction/lower urinary tract symptoms Take 1 Tab by mouth daily. 30 Tab 5 10/25/2017 Active Linaclotide (LINZESS) 290 MCG CapsuleIndications: Irritable bowel syndrome with constipation Take 1 Cap by mouth daily before breakfast. 30 Cap 5 10/25/2017 Active tamsulosin (FLOMAX) 0.4 MG CapsuleIndications: BPH with obstruction/lower urinary tract symptoms TAKE 1 CAPSULE BY MOUTH ONCE A DAY 30 Cap 5 12/04/2017 Active tamsulosin (FLOMAX) 0.4 MG CapsuleIndications: BPH with obstruction/lower urinary tract symptoms Take 1 Cap by mouth daily. 30 Cap 2 07/23/2017 12/04/2017 Discontinued as of this encounter Active Problems Problem Noted Date PVC (premature ventricular contraction) 03/12/2016 Dizziness 03/12/2016 Palpitations 03/12/2016 Need for prophylactic vaccin ation against Streptococcus pneumoniae (pneumococcus) 08/19/2013 Routine medical exam 03/28/2010 Special screening for malignant neoplasm s, colon 03/28/2010 Mixed dyslipidemia Sarcoidosis of lung (HCC) Overview: ? dx 30 yrs ago but [...] Conjugate Vacc, 13 Valent (Prevnar) 03/06/2016 Pneumococcal Polyvalent Vacc (Pneumovax) 08/19/2013 Seasonal Influenza, Quadriva lent, No Preserve, 6 Mons & Above, IM 07/23/2017 Seasonal Influenza, Quadriva lent, No Preserve, IM 06/28/2015 Seasonal Influenza, Trivalen t, with Preserve, 3yr & Above, Split 05/04/2014,05/25/2013,07/24/2012,10/0 09/2010,05/01/2010 TDAP (age 10 and older)(Boostrix) 02/12/2014 Varicella Zoster Vaccine (Adult) 02/12/2014 as of this encounter Social History Tobacco Use Types Packs/Day Years Used Date Former Smoker Cigarettes 1 12 Quit: 07/22 Smokeless Tobacco: Never Used Alcohol Use Drinks/Week oz/Week Comments No Sex Assigned at Date Recorded Not on file as of this encounter Miscellaneous Notes * Telephone Encounter - Pam Duarte DO - 12/04/2017 8:17 PM EDT Signed Prescriptions: Disp Refills tamsulosin (FLOMAX) 0.4 MG Capsule 30 Cap 5 Sig: TAKE 1 CAPSULE BY MOUTH ONCE A DAY Authorizing Provider: PAM DUARTE * Telephone Encounter - Jackelin Smiley RN - 12/04/2017 3:12 PM EDT Pending Prescriptions: Disp Refills tamsulosin (FLOMAX) 0.4 MG Capsule [Pharm*30 Cap 5 Sig: TAKE 1 CAPSULE BY MOUTH ONCE A DAY * Telephone Encounter - Marianna Maguire LPN - 12/04/2017 3:08 PM EDT Pending Prescriptions: Disp Refills tamsulosin (FLOMAX) 0.4 MG Capsule [Pharm*30 Cap 5 Sig: TAKE 1 CAPSULE BY MOUTH ONCE A DAY * Telephone Encounter - Marianna Maguire LPN - 12/04/2017 3:08 PM EDT Formatting of this note may be different from the original. Pending Prescriptions: Disp Refills tamsulosin (FLOMAX) 0.4 MG Capsule [Pharm*30 Cap 5 Sig: TAKE 1 CAPSULE BY MOUTH ONCE A DAY Last Office Visit: 10/25/2017 Next Office Visit: 01/24/2018 Scheduled Provider(s): Pam Duarte DO Last date the medication was ordered: 07/23/17 Patient Active Problem List Diagnosis Code Mixed dyslipidemia E78.2 Sarcoidosis of lung (HCC) D86.0 Routine medical exam Z00.00 Special screening for malignant neoplasms, colon Z12.11 Need for prophylactic vaccination against Streptococcus pneumoniae (pneumococcus) Z23 PVC (premature ventricular contraction) I49.3 Dizziness R42 Palpitations R00.2 Labs: CREATININE(mg/dL) Gabriel Dt/Tm Resulted Value Status 08/15/17 8:12A 08/15/17 1.0 FINAL POTASSIUM(mmol/L) Gabriel Dt/Tm Resulted Value Status 08/15/17 8:12A 08/15/17 4.7 FINAL TSH(uIU/mL) Gabriel Dt/Tm Resulted Value Status 08/15/17 8:12A 08/15/17 1.66 FINAL LDL (CALCULATED)(mg/dL) Gabriel Dt/Tm Resulted Value Status 08/15/17 8:12A 08/15/17 119 FINAL 03/12/16 9:19A 03/12/16 99 FINAL ALT(U/L) Gabriel Dt/Tm Resulted Value Status 08/15/17 8:12A 08/15/17 9* FINAL Hemoglobin AIC Results: HEMOGLOBIN, A1C(%) Gabriel Dt/Tm Resulted Value Status 08/15/17 8:12A 08/15/17 5.4 FINAL in this encounter Plan of Treatment Upcoming Encounters Date Type Specialty Care Team Description 01/24/2018 Office Visit Family Practice Pam Duarte DO [address] [place] [address] 08/18/2018 Office Visit Cardiology Kings Camargo MD [address] [place] [address] [phone] Health Maintenance Due Date Last Done Comments [...] 65 YRS AND OVER Completed 2015, 08/19/2013 Influenza Vaccine (FLU shot) Completed 08/2017, 06/28/2015, 05/04/2014, Additional history exists ABDOMINAL AORTIC ANEURYSM (A AA) SCREENING Completed 07/25/2017 as of this encounter Implants Not on fileas of this encounter Visit Diagnoses Diagnosis BPH with obstruction/lower u rinary tract symptoms Hypertrophy of prostate with urinary obstruction and other lower urinary tract symptoms (LUTS) in this encounter
--- OUTSIDE RECORDS SUMMARY | 2023-05-29 00:05 | External Medical Summary | Summary of Care ---
Author Name Unknown Organization [place] [address] Care Team Providers Care Grounds Maintenance Manager Name Role Phone Elias Duarte DO Primary Care Provider [phone] Reason for Visit * Reason Comments Previsit Planning Encounter Details Date Type Department Care Team Description 07/29/2018 Telephone Family Practice [facility] [address] [facility] [place] [address] Elias Duarte DO [address] [facility] [place] [address] [phone] Previsit Planning Allergies No Known Allergiesas of this encounter Medications Medication Sig Dispensed Refills Start Date End Date Status ASPIRIN 325 MG PO TABS one pill each day at bedtime 0 Active metoprolol succinate XL (TOPROL XL) 25 MG [id number]:Symptom atic PVCs Take 1 Tab by mouth [...] history emmanuel ilable. as of this encounter Miscellaneous Notes * Telephone Encounter - KhanhBradly herrera, MED ASSIST - 07/29/2018 8:57 AM EST Patient contacted for Care Gaps Comprehensive Care Outreach. Last Office Visit: 01/24/2018 Outreach action taken: Contacted: ByteActive Message Sent Health Maintenance Due Topic Date Due *DEPRESSION SCREENING, ANNUAL FOR PTS 18 AND OVER 07/25/2018 in this encounter Plan of Treatment Upcoming Encounters Date Type Specialty Care Team Description 07/29/2018 Office Visit Family Medicine Elias Duarte DO [address] [facility] [place] [address] [phone] 08/08/2018 Office Visit Dermatology Ramona Rios MD [address] [place] [address] [phone] 08/18/2018 Office Visit [facility]iology Kings Camargo [facility] [address] [phone] Health Maintenance Due Date Last Done Comments *DEPRESSION SCREENING, LISAUA Natalia FOR PTS 18 AND OVER 07/25/2018 COLONOSCOPY-EVERY 3 YRS AGES 18-100 12/27/2018 12/28/2015, [...] Implants Not on fileas of this encounter Advance Directives Patient has advance care planning documents on file. For more information, please contact: [place] [address]
--- OUTSIDE RECORDS SUMMARY | 2023-05-29 00:05 | External Medical Summary | Summary of Care ---
Author Name Unknown Organization [place] [address] Care Team Providers Care Retail Operations Manager Name Role Phone Elias Duarte DO Primary Care Provider [phone] Reason for Referral * Precert (Routine) Status Reason Specialty Diagnoses / Procedures Referred By Contact Referred To Contact Pending Review Precert Cardiac Studies Diagnoses Palpitations PVC (premature ventricular contraction) CARROLL (dyspnea on exertion) Procedures ECHO, STRESS (EXERCISE) Kings Camargo MD [address] [facility] [place] [address] Reason for Visit * Reason Comments Follow Up Encounter Details Date Type Department Care Team Description 08/18/2018 Office Visit Cardiology, [facility] [address] [place] [address] Kings Camargo MD [address] [facility] [place] [address] [phone] PVC (premature ventricular contraction)*; Palpitations; CARROLL (dyspnea on exertion); Mixed dyslipidemia Allergies No Known Allergiesdocumented as of this encounter (statuses as of 08/18/2018) Medications Medication Sig Dispensed Refills Start Date End Date Status ASPIRIN 325 MG PO TABS pt taking 2 tablets each night at bedtime 0 Active metoprolol succinate XL (TOPROL XL) 25 MG [id number]:Symp tomatic PVCs Take 1 Tab by mouth [...] Up Referring Provider: PCP: [place] [address] [phone] Chief Complaint: Routine followup, chronic ventricular ectopy [...] scheduled 1 year's time Kings Camargo MD [facility] Cardiology, [facility] [address] [place] [address] documented in this encounter Nursing Notes * [...] Imaging Radiology 09/02/2018 Imaging Cardiac Studies Gw, Facility Maintenance Technician [address] [place] [address] [phone] 09/29/2018 Office Visit Neurology Lilibeth Serrato CRNP [address] [facility], [place] [address] [phone] 10/27/2018 Office Visit Family Medicine Elias Duarte DO [address] [place] [address] [phone] 08/18/2019 Office Visit Cardiology Kings Camargo MD [address] [place] [address] [phone] Scheduled Tests Name Priority Associated Diagnoses Order [...] For more information, please contact: [place] [address]"
--- OUTSIDE RECORDS SUMMARY | 2023-05-29 00:05 | External Medical Summary | Summary of Care ---
Author Name Unknown Organization [place] [address] Care Team Providers Care House Cleaner Name Role Phone Elias Duarte DO Primary Care Provider Reason for Referral * Precert (Routine) Status Reason Specialty Diagnoses / Procedures Referred By Contact Referred To Contact Pending Review Precert Cardiac Studies Diagnoses Palpitations PVC (premature ventricular contraction) CARROLL (dyspnea on exertion) Procedures ECHO, STRESS (EXERCISE) Kings Camargo MD [address] [facility] [place] [address] Reason for Visit * Reason Comments Follow Up Encounter Details Date Type Department Care Team Description 08/18/2018 Office Visit Cardiology, [facility] [address] [place] [address] Kings Camargo MD [address] [facility] [place] [address] [phone] PVC (premature ventricular contraction)*; Palpitations; CARROLL (dyspnea on exertion); Mixed dyslipidemia Allergies No Known Allergiesdocumented as of this encounter (statuses as of 08/18/2018) Medications Medication Sig Dispensed Refills Start Date End Date Status ASPIRIN 325 MG PO TABS pt taking 2 tablets each night at bedtime 0 Active metoprolol succinate XL (TOPROL XL) 25 MG [id number]:Symp tomatic PVCs Take 1 Tab by mouth [...] Up Referring Provider: PCP: [place] [address] [phone] Chief Complaint: Routine followup, chronic ventricular ectopy [...] scheduled 1 year's time Kings Camargo MD [facility] Cardiology, [facility] [address] [place] [address] documented in this encounter Nursing Notes * [...] Imaging Radiology 09/02/2018 Imaging Cardiac Studies Gw, Noise Tester 1 [address] [place] [address] [phone] 09/29/2018 Office Visit Neurology Lilibeth Serrato CRNP [address] [facility], [place] [address] [phone] 10/27/2018 Office Visit Family Medicine Elias Duarte DO [address] [place] [address] [phone] 08/18/2019 Office Visit Cardiology Kings Camargo MD [address] [place] [address] [phone] Pending Results Name Priority Associated Diagnoses Date/Ti me LIPID PANEL Routine Palpitations PVC (premature ventricular contraction) CARROLL (dyspnea on exertion) Mixed dyslipidemia 08/18/2018 12:44 PM EST Scheduled Tests Name Priority Associated [...] For more information, please contact: [place] [address]"
--- OUTSIDE RECORDS SUMMARY | 2023-05-29 00:05 | External Medical Summary ---
Author Name Unknown Address [address] [place] [address] Phone Organization K0G[facility] [place] [address] Laboratory Report Ordering Provider Test Date Status NINFA BLOUNT 08/18/2018 12:44:00 Final Observation Date Value Abnormality Reference Status BUN 08/18/2018 14:26 12 6-20 Fin al Performing Location [facility] [address] [facility] [place] [address]
--- OUTSIDE RECORDS SUMMARY | 2023-05-29 00:06 | External Medical Summary ---
Author Name Unknown Address [address] [place] [address] Phone Organization K0G:CARLOS EDUARDO [facility] [address] [facility] [place] [address] Laboratory Report Ordering Provider Test Date Status ALEJANDRA OROZCO 08/15/2017 08:12:00 Final Observation Date Value Abnormality Reference Status WBC, Total 08/15/2017 08:20 4.96 4.00-10.80 F inal RBC 08/15/2017 08:20 4.96 4.50-5.25 Fin al Hemoglobin 08/15/2017 08:20 15.7 14.0-16.8 Fi nal HCT 08/15/2017 08:20 46.6 40.0-48.4 Fin al MCV 08/15/2017 08:20 94.0 82.0-99.5 Fin al MCH 08/15/2017 08:20 31.7 27.0-34.0 Fin al MCHC 08/15/2017 08:20 33.7 32.0-36.0 Fin al RDW 08/15/2017 08:20 12.4 11.5-15.5 Fin al Platelets 08/15/2017 08:20 178 140-400 Fin al MPV 08/15/2017 08:20 10.2 6.6-11.1 Fin al Segs 08/15/2017 08:20 62.3 40-75 Fin al Lymphs % 08/15/2017 08:20 26.0 18-42 Fin al Monos 08/15/2017 08:20 9.9 1-11 Fin al Eosinophils 08/15/2017 08:20 1.4 0-6 F inal Basos 08/15/2017 08:20 0.4 0-2 Fin al Absolute Segs 08/15/2017 08:20 3.09 1.8-7.7 Final Lymphs, absolute 08/15/2017 08:20 1.29 1.0-4. 8 Final Monos, Abs 08/15/2017 08:20 0.49 0.0-1.1 Fi nal Eos, Abs 08/15/2017 08:20 0.07 0.0-0.7 Fin al Basos, Abs 08/15/2017 08:20 0.02 0.0-0.2 Fi nal Performing Location [address] [place] [address]
--- OUTSIDE RECORDS SUMMARY | 2023-05-29 00:06 | External Medical Summary ---
Author Name Unknown Address [facility] [address] [id number] Phone Organization K01:[facility] [address] [id number] Laboratory Report Ordering Provider Test Date Status PAMALEJANDRA 08/15/2017 08:12:00 Final Observation Date Value Abnormality Reference Status PSA 08/15/2017 13:05 1.41 <4.1 Fin al Performing Location [facility] [address] [facility] [address]
--- OUTSIDE RECORDS SUMMARY | 2023-05-29 00:06 | External Medical Summary | Summary of Care ---
Author Name Unknown Organization [place] [address] Phone Care Team Providers Care Electrical Instrumentation Technician Name Role Phone Elias Duarte DO Primary Care Provider Reason for Visit * Reason Comments ADVICE Encounter Details Date Type Department Care Team Description 08/20/2017 Telephone Family Practice [facility] [address] [facility] [place] [address] Elias Duarte DO 132 [facility] [place] [address] [phone] ADVICE Allergies No Known Allergiesas of this encounter Medications Prescription Sig. Disp. Refills Start Date End Date Status ASPIRIN 325 MG PO TABS one pill each day at bedtime Active tamsulosin (FLOMAX) 0.4 MG CapsuleIndications:BPH with obstruction/lower urinary tract symptoms Take 1 Cap by mouth daily. 30 Cap 2 07/23/2017 Active Linaclotide (LINZESS) 145 MCG CapsuleIndications:Irri table bowel syndrome with constipation Take 1 Cap by mouth daily before breakfast. 30 Cap 2 07/23/2017 Active metoprolol succinate XL (TOPROL XL) 25 MG [id number]:Symptom atic PVCs Take 1 Tab by mouth daily. 90 Tab 3 07/31/2017 Active pravastatin (PRAVACHOL) 20 MG TabletIndications:Mixed dyslipidemia,PVC (premature ventricular contraction) Take 1 Tab by mouth every night at bedtime. 90 Tab 11 08/16/2017 Active as of this encounter Active Problems Problem Noted Date PVC (premature ventricular contraction) 03/12/2016 Impaired fasting glucose 03/12/2016 Dizziness 03/12/2016 Palpitations 03/12/2016 Need for prophylactic vaccin ation against Streptococcus pneumoniae (pneumococcus) 08/19/2013 Routine medical exam 03/28/2010 Special screening for malignant neoplasm s, colon 03/28/2010 Mixed dyslipidemia Sarcoidosis of lung (HCC) Overview: ? dx 30 yrs ago but recent cxr normal as of this encounter Resolved Problems Problem Noted Date Resolved Date Constipation 02/12/2014 10/05/2014 Impacted cerumen 02/12/2014 10/05/2014 [...] t, with Preserve, 3yr & Above, Split 05/04/2014,05/25/2013,07/24/2012,1009/2010,05/01/2010 TDAP (age 10 and older)(Boostrix) 02/12/2014 Varicella Zoster Vaccine (Adult) 02/12/2014 as of this encounter Social History Tobacco Use Types Packs/Day Years Used Date Former Smoker Cigarettes 1 12 Quit: 07/22 Smokeless Tobacco: Never Used Alcohol Use Drinks/Week oz/Week Comments No Sex Assigned at Date Recorded Not on file as of this encounter Miscellaneous Notes * Telephone Encounter - Mariya Bledsoe LPN - 08/21/2017 10:48 AM EST Pt aware * Telephone Encounter - Colton Paiz LPN - 08/21/2017 10:00 AM EST Left message for pt to return call. When pt calls back please inform of providers message below. Thank you. * Telephone Encounter - Elias Duarte DO - 08/20/2017 2:00 PM EST Lab studies reviewed showing only mildly elevated LDL cholesterol. Lab studies otherwise normal. Cardiology consult also reviewed. Advise to continue present medication and keep routine follow up appointment as scheduled * Telephone Encounter - Mame Jorgensen, CARMEN - 08/20/2017 10:09 AM EST Patient called in regarding a letter he received from Dr Duarte dated 08-10-2017. The letter is not in the chart for review. Patient states the letter is advising him to make a follow up appointment with Dr Duarte. Patient already has an appointment on 10-21-2017. Patient needs to know if he needs a sooner follow up appointment. Please call the patient regarding this question. Thank you. in this encounter Plan of Treatment Upcoming Encounters Date Type Specialty Care Team Description 10/21/2017 Office Visit Family Practice Elias Duarte DO [address] [place] [address] [phone] 08/18/2018 Office Visit Cardiology Kings Camargo MD [address] [place] [address] [phone] Health Maintenance Due Date Last Done Comments COLONOSCOPY-EVERY 3 YRS AGES 18-100 12/27/2018 12/28/2015, 12/28/2015, 10/09/2012, Additional history exists DIABETES SCREEN EVERY 3 YRS- AGE 45 AND ABOVE 08/15/2020 08/15/2017, 08/15/2017, 03/12/2016, Additional history exists LIPID SCREEN EVERY 5 YRS-MEN AGE 35-75 08/15/2022 08/15/2017, 03/12/2016, 10/20/2014, Additional history exists TETANUS EVERY 10 YEARS-TDAP (BOOSTRIX OR ADACEL) SUGGESTED IF NOT RECEIVED IN THE PAST. 02/13/2024 02/12/2014, 07/14/2009 PNEUMOCOCCAL ADULT 65 YRS AND OVER Completed 2015, 08/19/2013 Influenza Vaccine (FLU shot) Completed 08/2017, 06/28/2015, 05/04/2014, Additional history exists ABDOMINAL AORTIC ANEURYSM (A AA) SCREENING Completed 07/25/2017 as of this encounter Implants Not on fileas of this encounter Insurance Payer Benefit Plan / Group Subscriber ID Type Phone Address MEDICARE MEDICARE A AND B [id number] Medicare [place], [place] [employer] [facility] [id number] as of this encounter
--- OUTSIDE RECORDS SUMMARY | 2023-05-29 00:06 | External Medical Summary ---
Author Name Unknown Address [facility] [place] [address] Phone Organization K0G:[facility] 132 [facility] [place] [address] Laboratory Report Ordering Provider Test Date Status ALEJANDRA OROZCO 08/15/2017 08:12:00 Final Observation Date Value Abnormality Reference Status Fasting status - Reported 08/15/2017 08:14 12 Final Triglyceride 08/15/2017 12:53 146 <200 Final TRIGLYCERIDE REFERENCE RANGE S (mg/dL) <150 NORMAL 150-199 BORDERLINE HIGH 200- 499 HIGH >499 VERY HIGH Cholesterol 08/15/2017 12:53 180 <200 F inal TOTAL CHOLESTEROL REFERENCE RANGES(mg/dL) <200 DESIRABLE 200-239 BORDERLINE HIGH >239 HIGH HDL 08/15/2017 12:53 32 Below low normal >39 Final HDL CHOLESTEROL REFERENCE RA NGES(mg/dL) <40 LOW(UNDESIRABLE) >59 HIGH(DESIRABLE) Cholesterol / HDL ratio 08/15/2017 12:53 5.6 Final LDL, (calculated) 08/15/2017 12:53 119 0-129 Final LDL CHOLESTEROL REFERENCE RA NGES(mg/dL) <100 OPTIMAL GOAL FOR HIGH RISK PATIENTS 100-129 NEAR OR ABOVE NORMAL 130-159 BORDERLINE HIGH 160-189 HIGH >189 VERY HIGH Performing Location [facility] 132 [facility] [place] [address]
--- OUTSIDE RECORDS SUMMARY | 2023-05-29 00:06 | External Medical Summary ---
Author Name Unknown Address [facility] [place] [address] Phone Organization K01:[place] [address] [place] [id number] Laboratory Report Ordering Provider Test Date Status ALEJANDRA OROZCO 08/15/2017 08:16:00 Final Observation Date Value Abnormality Reference Status Color of Urine by Auto 08/15/2017 12:25 STRAW Abnormal YEL Final Clarity, Urine 08/15/2017 12:25 CLEAR CLEAR Final Glucose [Mass/volume] in Urine by Automated test strip 08/15/2017 12:25 NEGATIVE NEG Final Bilirubin.total [Presence] in Urine by Automated test strip 08/15/2017 12:25 NEGATIVE NEG Final Ketones [Mass/volume] in Urine by Automated test strip 08/15/2017 12:25 NEGATIVE NEG Final Specific gravity, Urine 08/15/2017 12:25 1.021 1.003-1.030 Final Hemoglobin [Presence] in Urine by Automated test strip 08/15/2017 12:25 NEGATIVE NEG Final pH, Urine 08/15/2017 12:25 7.5 5.0-7.5 Final Protein [Mass/volume] in Urine by Automated test strip 08/15/2017 12:25 TRACE Abnormal NEG Final Urobilinogen [Mass/volume] in Urine by Automated test strip 08/15/2017 12:25 NORMAL NORM Final Nitrite [Presence] in Urine by Automated test strip 08/15/2017 12:25 NEGATIVE NEG Final Leukocyte esterase [Presence] in Urine by Automated test strip 08/15/2017 12:25 NEGATIVE NEG Final Testosterone Comment 08/15/2017 12:25 SCREEN NEGATIVE - MICROSCOPIC NOT DONE Final Performing Location [address] [address]
--- OUTSIDE RECORDS SUMMARY | 2023-05-29 00:06 | External Medical Summary | Summary of Care ---
Author Name Unknown Organization [place] [address] Phone Care Team Providers Care General Milling Superintendent Name Role Phone Elias Cleary DO Primary Care Provider Reason for Visit * Reason Comments RECHECK medication follow up , Encounter Details Date Type Department Care Team Description 10/25/2017 Office Visit Family Practice [facility] 132 [facility] [place] [address] [facility] [place] [address] [phone] Irritable bowel syndrome with constipation*;BPH with obstruction/lower urinary tract symptoms;Chronic bilateral low back pain without sciatica Allergies No Known Allergiesas of this encounter Medications Prescription Sig. Disp. Refills Start Date End Date Status ASPIRIN 325 MG PO TABS one pill each day at bedtime Active tamsulosin (FLOMAX) 0.4 MG CapsuleIndications: BPH with obstruction/lower urinary tract symptoms Take 1 Cap by mouth daily. 30 Cap 2 07/23/2017 Active metoprolol succinate XL (TOPROL XL) 25 MG [id number]:Sym ptomatic PVCs Take 1 Tab by mouth [...] before breakfast. 30 Cap 5 10/25/2017 Active Linaclotide (LINZESS) 145 MCG CapsuleIndications: Irritable bowel syndrome with constipation Take 1 Cap by mouth daily before breakfast. 30 Cap 2 07/23/2017 10/25/2017 Discontinued as of this encounter Active Problems [...] Not on file as of this encounter Last Filed Vital Signs Vital Sign Reading Time Taken Blood Pressure 138/74 10/25/2017 2:24 PM EDT Pulse 66 10/25/2017 2:24 PM EDT Temperature 36.2 C (97.2 F) 10/25/2017 2 :24 PM EDT Respiratory Rate 16 10/25/2017 2:24 PM EDT Oxygen Saturation - - Inhaled Oxygen Concentration - - Weight 78.2 kg (172 lb 8 oz) 10/25/2017 2:24 PM EDT Height - - Body Mass Index 24.75 10/25/2017 2:24 PM EDT in this encounter Progress Notes * Elias Cleary DO - 11/02/2017 10:43 AM EDT Formatting of this note may be different from the original. Chief Complaint Patient presents with RECHECK medication follow up, HPI: Patient complains of intermittent lower abdominal pain and constipation with bloating and excess gas slightly improved with Linzess 145 mcg once daily. Patient denies nausea or vomiting. Patientdenies melena or hematochezia. Patient denies fever chills or sweats. Patient tolerating medicationwith no adverse effects. Patient complains of nocturia intermittent. Patient denies dysuria or hematuria. Patient complains of chronic lower back pain. Patient denies radiation of pain muscle weakness or numbness. Review of systems otherwise negative Past Medical [...] I49.3 Dizziness R42 Palpitations R00.2 Current Outpatient Prescriptions Medication Sig Dispense Refill ASPIRIN 325 MG PO TABS one pill each day at bedtime finasteride (PROSCAR) 5 MG Tablet Take 1 Tab by mouth daily. 30 Tab 5 Linaclotide (LINZESS) 290 MCG Capsule Take 1 Cap by mouth daily before breakfast. 30 Cap 5 metoprolol succinate XL (TOPROL XL) 25 MG TB24 Take 1 Tab by mouth daily. 90 Tab 3 pravastatin (PRAVACHOL) 20 MG Tablet Take 1 Tab by mouth every night at bedtime. 90 Tab 11 tamsulosin (FLOMAX) 0.4 MG Capsule Take 1 Cap by mouth daily. 30 Cap 2 Past Medical History: Diagnosis Date Benign neoplasm [...] performed by Dale Whitlock MD at ENDOSCOPY [facility] COLONOSCOPY, DIAGNOSTIC (RECTUM) 12/28/2015 adenomatous polyp, diverticulosis, repeat 3 yrs/COLONOSCOPY FLEXIBLE PROXIMAL DIAGNOSTIC performed by Enid John MD at ENDOSCOPY [facility] COLONOSCOPY/REMOVE LESION 04/27/2010 2 polyps tubulovillous adenomas--repeat in 6 months INFORMATION right foot surgery for plantar fascitis REMOVE TONSILS & ADENOIDS, UNDER 12 Review of patient's allergies indicates: No Known Allergies Family History Problem Relation Age of Onset Neurological Disorder Mother dementia No Past Hx Father NO HEALTH HISTORY Diabetes Sister dx in 20's Hypertension Sister Family Status Relation Status Mother Father Sister Sister Social History Substance Use Topics Smoking status: Former Smoker Packs/day: 1.00 Years: 12.00 Types: Cigarettes Quit date: 07/22/1974 Smokeless tobacco: Never Used Alcohol use No Review of Systems: No nausea, vomiting or diarrhea. No chest pain or shortness of breath, No fatigue. No fevers, chillor night sweats. All other ROS examined in detail and are negative except as documented in HPI. All other systems reviewed and are negative. Objective: BP 138/74 | Pulse 66 | Temp (Src) 97.2 (Tympanic) | Resp 16 | Wt 172 lbs 8 oz (78.245kg) | BMI 24.75 kg/m | BSA 1.97 m Physical Exam: General: alert, healthy, no distress, well nourished and well developed Head: Normocephalic, No masses, lesions, tenderness or [...] w/o bruits, posterior tibial=2/4 Abdomen: abdomen soft, no masses, no hepatosplenomegaly, no rigidity, rebound or guarding, mild tenderness left lower quadrant Back: No CVA tenderness, paravertebral muscle spasm and tenderness with decreased range of motion flexion and extension L1-L5 Extremities: no edema, no clubbing, no cyanosis Neuro Exam: alert & oriented x 3 with fluent speech, no focal motor/sensory deficits, gait normal, reflexes normal and symmetric Skin: skin color, texture, turgor are normal, no rashes or significant lesions ASSESSMENT/PLAN: K58.1 Irritable bowel syndrome with constipation (primary encounter diagnosis) Plan: Counselor high-fiber diet and exercise Increased dose Linaclotide 290 mcg po caps Sig:Take 1 cap by mouth daily before breakfast. 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 Consider additional referral to urologist M54.5, G89.29 Chronic bilateral low back pain without sciatica Plan: Warm compresses q.i.d. to affected area Home therapeutic exercise program Xr l spine ap and lateral Follow up: Return in about 3 months (around 01/24/2018). Elias Cleary DO 11/02/17 in this encounter Nursing Notes * Amy Humphries, CLINIC LICENSED PRACTICAL NURSE - 10/25/2017 2:24 PM EDT Formatting of this note may be different from the original. The patient has been properly identified by confirmation of name and date of . Chief Complaint Patient presents with RECHECK medication follow up, in this encounter Plan of Treatment Upcoming Encounters Date Type Specialty Care Team Description 01/24/2018 Office Visit Family Practice Elias Cleary DO [address] [place] [address] 08/18/2018 Office Visit Cardiology Kings Camargo MD [address] [place] [address] [phone] Health Maintenance Due Date Last Done Comments [...] Implants Not on fileas of this encounter Results * XR L SPINE AP AND LATERAL (10/25/2017 3:18 PM) Specimen Performing Laborator y [facility] [address] [place] [address] Narrative EXAM LUMBOSACRAL SPINE 2 OR 3 VIEWS- 10/25/2017 3:18 pm HISTORY Chronic low back pain. TECHNIQUE AP, lateral, and L5-S1 spot lateral views of the lumbosacral spine were obtained. COMPARISON None. FINDINGS Five lumbar-type vertebral bodies.No significant vertebral body height loss or spondylolisthesis. Multilevel intervertebral disc degeneration, severe at L5-S1.Multilevel facet osteoarthritis, greatest near the lumbosacral junction.No fracture or aggressive osseous lesion identified.Sacroiliac joints are unremarkable. IMPRESSION 1. Multilevel intervertebral disc degeneration, severe at L5-S1. 2. Multilevel facet osteoarthritis, greatest near the lumbosacral junction. Authenticated By Authenticating DateAuthenticating TimeReading Providers(s) ALEX MCCALL MD 10-30-2017 10:24ALEX MCCALL MD Procedure Note Interface, Rad In - 10/30/2017 10:24 AM EDT EXAM LUMBOSACRAL SPINE 2 OR 3 VIEWS- 10/25/2017 3:18 pm HISTORY Chronic low back pain. TECHNIQUE AP, lateral, and L5-S1 spot lateral views of the lumbosacral spine wereobtained. COMPARISON None. FINDINGS Five lumbar-type vertebral bodies. No significant vertebral body heightloss or spondylolisthesis. Multilevel intervertebral disc degeneration, severe at L5-S1. Multilevelfacet osteoarthritis, greatest near the lumbosacral junction. No fracture or aggressive osseous lesionidentified. Sacroiliac joints are unremarkable. IMPRESSION 1. Multilevel intervertebral disc degeneration, severe at L5-S1. 2. Multilevel facet osteoarthritis, greatest near the lumbosacraljunction. Authenticated By Authenticating Date AuthenticatingTime Reading Providers(s) ALEX MCCALL MD 10-30-2017 10:24JUGIANNA MCCALL MD in this encounter Visit Diagnoses Diagnosis Irritable bowel syndrome wit h constipation - Primary Irritable bowel syndrome BPH with obstruction/lower u rinary tract symptoms Hypertrophy of prostate with urinary obstruction and other lower urinary tract symptoms (LUTS) Chronic bilateral low back p ain without sciatica in this encounter Insurance Payer Benefit Plan / Group Subscriber ID Type Phone Address MEDICARE MEDICARE A AND B [id number] Medicare [place], [place] [employer] [id number] as of this encounter"
--- OUTSIDE RECORDS SUMMARY | 2023-05-29 00:06 | External Medical Summary ---
Author Name Unknown Address 132 [facility] [place] [address] Phone Organization K0G:[facility] [address] [facility] [place] [address] Laboratory Report Ordering Provider Test Date Status ALEJANDRA OROZCO 08/15/2017 08:12:00 Final Observation Date Value Abnormality Reference Status BUN 08/15/2017 09:41 16 6-20 Fin al Creatinine 08/15/2017 09:41 1.0 0.6-1.2 Fi nal GFR should be used to assess renal function. Plasma/Serum creatinine may not be able to properly reflect renal function in some cases. Sodium 08/15/2017 09:41 143 135-146 Fin al Potassium 08/15/2017 09:41 4.7 3.5-5.1 Fin al Cl 08/15/2017 09:41 104 98-107 Fin al CO2 08/15/2017 09:41 29 22-32 Fin al Anion gap 08/15/2017 09:41 10 7-15 Fin al Glucose 08/15/2017 09:41 99 70-120 Fin al Albumin 08/15/2017 09:41 4.2 3.8-5.0 Fin al AST (Aspartate aminotransferase) 08/15/2017 09:41 19 10-50 Final Alk Phos 08/15/2017 09:41 69 0-153 Fin al Bilirubin, Total 08/15/2017 09:41 0.9 0-1.2 Final Calcium 08/15/2017 09:41 9.1 8.4-10.2 Fin al Protein 08/15/2017 09:41 7.0 6.0-8.3 Fin al ALT (Alanine aminotransferase) 08/15/2017 09:41 9 Be low low normal 10-50 Final E Glom Filt Rate 08/15/2017 09:41 >60.0 >60 Final If patient is [place], multiply estimated GFR by 1.159. Performing Location [facility] [address] [facility] [place] [address]
--- OUTSIDE RECORDS SUMMARY | 2023-05-29 00:06 | External Medical Summary | Summary of Care ---
Author Name Unknown Organization [place] [address] Phone Care Team Providers Care Stacker Straightener Name Role Phone Elias Duarte DO Primary Care Provider [phone] Reason for Visit * Reason Comments NEW PATIENT * Evaluate & Treat - Unlimited Visits (Within 10 days (routine)) Status Reason Specialty Diagnoses / Procedures Referred By Contact Referred To Contact Pending Review Specialty Services Required Cardiovascular Medicine Diagnoses Symptomatic PVCs Elias Duarte DO [address] [facility] [place] [address] Encounter Details Date Type Department Care Team Description 08/16/2017 Office Visit Cardiology, [facility] [address] [facility] [place] [address] Kings Camargo MD 132 [facility] [place] [address] [phone] Mixed dyslipidemia*;PVC (premature ventricular contraction);Sarcoidos is of lung (HCC) Allergies No Known Allergiesas of this encounter [...] metoprolol succinate XL (TOPROL XL) 25 MG [id number]:Symptom atic PVCs Take 1 Tab by mouth [...] 12 Quit: 07/22 Smokeless Tobacco: Never Used Tobacco Cessation:Counseling Given: Yes Alcohol Use Drinks/Week oz/Week Comments No Sex Assigned at Date Recorded Not on file as of this encounter Last Filed Vital Signs Vital Sign Reading Time Taken Blood Pressure 124/70 08/16/2017 1:54 PM EST Pulse 64 08/16/2017 1:54 PM EST Temperature - - Respiratory Rate 16 08/16/2017 1:54 PM EST Oxygen Saturation - - Inhaled Oxygen Concentration - - Weight 80.5 kg (177 lb 8 oz) 08/16/2017 1:54 PM EST Height - - Body Mass Index 25.47 08/16/2017 1:54 PM EST in this encounter Progress Notes * Kings Camargo MD - 08/16/2017 2:23 PM EST See dictated note on 08/16/2017 Kings Camargo MD in this encounter Nursing Notes * Amanda Larry LPN - 08/16/2017 1:52 PM EST Examination Room: 14 Name: Jacques Alicea Date of : (1950). Reason for Visit: new patient/PVCs found on testing PCP Interim Hospitalization(s): denies Problems/Concerns: re establishing care, PCP advised f/u for PVC, denies cp, sob, palpitations Chest Pain/SOB: denies [facility] is a way you can talk to your provider online through e-mail. Would you like to sign up? I can activate it for you? ALREADY ACTIVE in this encounter Plan of Treatment Upcoming Encounters Date Type Specialty Care Team Description 10/21/2017 Office Visit Family Practice Elias Duarte DO [address] [place] [address] [phone] 08/18/2018 Office Visit Cardiology Kings Camargo MD [address] [place] [id number] Health Maintenance Due Date Last Done Comments [...] fileas of this encounter Visit Diagnoses Diagnosis Mixed dyslipidemia - Primary Mixed hyperlipidemia PVC (premature ventricular c ontraction) Other premature beats Sarcoidosis of lung (HCC) Sarcoidosis in this encounter Insurance Payer Benefit Plan / Group Subscriber ID Type Phone Address MEDICARE MEDICARE A AND B [id number] Medicare [place], [place] [employer] [facility] [id number] as of this encounter
--- OUTSIDE RECORDS SUMMARY | 2023-05-29 00:06 | External Medical Summary ---
Author Name Unknown Address [facility] [address] [place] [id number] Phone Organization K01:[place] [address] [place] [id number] Laboratory Report Ordering Provider Test Date Status LAEJANDRA OROZCO 08/15/2017 08:12:00 Final Observation Date Value Abnormality Reference Status HbA1C 08/15/2017 12:57 5.4 4.0-6.4 Fin al The use of HbA1c to monitor glycemic status is based on normal hemoglobin and HbA composition. This test should not be used in patients with abnormal hemoglobin that affects the half life of the red blood cell or the in vivo glycation rates. Glucose, estimated average 08/15/2017 12:57 108 <126 Final Performing Location [address] [address]
--- OUTSIDE RECORDS SUMMARY | 2023-05-29 00:06 | External Medical Summary ---
Author Name Unknown Address [address] [facility] [place] [address] Phone Organization K01:[facility] [address] [place] [id number] Laboratory Report Ordering Provider Test Date Status ALEJANDRA OROZCO 08/15/2017 08:12:00 Final Observation Date Value Abnormality Reference Status TSH 08/15/2017 13:19 1.66 0.27-4.2 Fin al T4, Free 08/15/2017 13:19 NOT APPLICABLE 0.9-1.7 Final Performing Location [facility] [address] [facility] [address]
--- OUTSIDE RECORDS SUMMARY | 2023-05-29 00:07 | External Medical Summary | Summary of Care ---
Author Name Unknown Organization [place] [address] Phone Care Team Providers Care Mill Manager Name Role Phone Elias Cleary DO Primary Care Provider Reason for Referral * Evaluate & Treat - Unlimited Visits (Within 10 days (routine)) Status Reason Specialty Diagnoses / Procedures Referred By Contact Referred To Contact Pending Review Specialty Services Required Psychology Diagnoses Anxiety Elias Cleary DO [address] [place] [id number] * Precert (Routine) Status Reason Specialty Diagnoses / Procedures Referred By Contact Referred To Contact Pending Review Precert Cardiac Studies Diagnoses PVC (premature ventricular contraction) Procedures ECHO, STRESS (EXERCISE) Elias Cleary DO [address] [place] [address] Reason for Visit * Reason Comments PHYSICAL-EXAM MEDICATION ADMINISTRATION Flu and/or Pne umo Inj Encounter Details Date Type Department Care Team Description 07/23/2017 Office Visit Family Practice [facility] [address] [place] [address] Elias Cleary DO [address] [place] [address] [phone] Well adult exam*;Anxiety;Irritabl e bowel syndrome with constipation;BPH with obstruction/lower urinary tract symptoms;Lumbar degenerative disc disease;PVC (premature ventricular contraction);Impaired fasting glucose;Risk and functional assessment;Need for prophylactic vaccination and inoculation against influenza;Need for hepatitis C screening test;Tobacco use disorder Allergies No Known Allergiesas of this encounter [...] before breakfast. 30 Cap 2 07/23/2017 Active as of this encounter Active Problems [...] t, with Preserve, 3yr & Above, Split 05/04/2014,05/25/2013,07/24/2012,100 09/2010,05/01/2010 TDAP (age 10 and older)(Boostrix) 02/12/2014 Varicella Zoster Vaccine (Adult) 02/12/2014 as of this encounter Social History Tobacco Use Types Packs/Day Years Used Date Former Smoker Cigarettes 1 12 Quit: 07/22 Smokeless Tobacco: Never Used Tobacco Cessation:Counseling Given: No Alcohol Use Drinks/Week oz/Week Comments No Sex Assigned at Date Recorded Not on file as of this encounter Last Filed Vital Signs Vital Sign Reading Time Taken Blood Pressure 136/70 07/23/2017 9:09 AM EST Pulse 72 07/23/2017 9:09 AM EST Temperature 36.2 C (97.2 F) 07/23/2017 9 :09 AM EST Respiratory Rate 16 07/23/2017 9:09 AM EST Oxygen Saturation - - Inhaled Oxygen Concentration - - Weight 79.4 kg (175 lb) 07/23/2017 9:09 AM EST Height 177.8 cm (5' 10") 07/23/2017 9:0 9 AM EST Body Mass Index 25.11 07/23/2017 9:09 AM EST in this encounter Instructions * Patient Instructions - Alexandra Eldridge RN - 07/23/2017 9:09 AM EST Patient Instructions - Fall Prevention Remember to take your current medications as prescribed. In order to prevent falls, you are encouraged to: Exercise Utilize assistive/adaptive devices Avoid multifocal lenses when walking Avoid hazards in home Maintain a regular toileting schedule Any questions please contact our office. Preventing Falls in the Home As you get older, falls are more likely. Thats because your reaction time slows. Your muscles and joints may also get stiffer, making them less flexible. Illness, medications, and vision changes can also affect your balance. A fall could leave you unable to live on your own. To make your home safer, follow these tips: Floors Put nonskid pads under area rugs Remove throw rugs Replace worn floor coverings Tack carpets firmly to each step on carpeted stairs. Put nonskid strips on the edges of uncarpeted stairs Keep floors and stairs free of clutter and cords Arrange furniture so there are clear pathways Clean up any spills right away Bathrooms Install grab bars in the tub or shower Apply nonskid strips or put a nonskid rubber mat in the tub or shower Sit on a bath chair to bathe Use bathmats with nonskid backing Lighting Keep a flashlight in each room Put a nightlight along the pathway between the bedroom and the bathroom Alejand[employer]il[employer] Patient Education Copyright 2008 - 2010 Alejandrosilva except where otherwise noted Preventing Falls: Exercises to Improve Balance, Flexibility, Strength, and Staying Power Certain types of exercises may help make you less likely to fall. Try the ones below. Or do other exercises that your healthcare provider suggests. Depending on your health, you may need to start slowly. Dont let that stop you. Even small amounts of exercise can help you. Be sure to talk to yourhealthcare provider before starting any exercise program. Improve Balance Many types of exercise can help improve balance. Nicolas chi and yoga are good examples. Heres another one to try. You can do it anytime and almost anywhere. Stand next to a counter or solid support. Push yourself up onto your tiptoes. Hold for 5 seconds. If you start to lose your balance, hold on to the counter. Rest and repeat 5 times. Work up to holding for 20 to 30 seconds, if you can. Increase Flexibility Being more flexible makes it easier for you to move around safely. Try exercises like the seated hamstring stretch. Sit in a chair and put one foot on a stool. Straighten your leg and reach with both hands down either side of your leg. Reach as far down your leg as you can. Hold for about 20 seconds. Go back to the starting position. Then repeat 5 times. Switch legs. Build Strength Resistance exercises help build strength. You can do them without equipment. Or you can use weights, elastic bands, or special machines. One such exercise is called the biceps curl. You can hold a 1 pound weight or even a can of soup. Do this exercise at least 3 times a week. Strive for everyday. Sit up straight in a chair. Keep your elbow close to your body and your wrist straight. Bend your arm, moving your hand up to your shoulder. Then slowly lower your arm. Repeat 5 times. Switch to the other arm. Build Your Staying Power Aerobic exercises make your heart and lungs stronger so you can keep moving longer. Walking and swimming are two of the best types of exercises you can do. Using a stationary bike is great, too. Find an aerobic exercise that you enjoy. Start slowly and build up. Even 5 minutes is helpful. Aimfor a goal of 30 minutes, at least 3 times a week. You dont have to do 30 minutes in one session. Break it up and walk a little throughout the day. More Helpful Tips Start easy. Slowly work up to doing more. Talk with your healthcare provider about the best exercises for you. Call senior centers or health clubs about exercise programs. If needed, have a family member watch you walk every so often to check your stability. Exercise with a friend. Choose an activity you both enjoy. Try exercises that you can do anytime, anywhere. Here are two examples. Have someone with you when you first try these: Practice walking by placing one foot right in front of the other. Stand up and sit down 10 times. Repeat this throughout the day. [employer] Patient Education Copyright 2008 - 2010 Kel except where otherwise noted. Preventing Falls: Moving Safely Using a Cane or Walker Keep the cane away from your feet so you dont trip. A walking aid, such as a cane or walker, can help you stay more independent and avoid falls. Remember to keep your walking aid within easy reach when youre in a chair or in bed. And learn how to use it safely so you dont injure yourself. Using a Cane If you have a stronger side, hold the cane on that side. 17. Get your balance. 18. Move the cane and your weaker leg forward. 19. Support your weight on both the cane and your weaker side. 20. Step with your stronger leg. 21. Start again from step 1. If youre using a folding walker, be sure you know how to lock it open. Check that its locked open before each use. Using a Walker 7. Roll the walker (or lift it, if youre using one without wheels) forward about 12 inches. 8. Step forward with your weaker leg first. 9. Use the walker to help keep your balance. 10. Bring your other foot forward to the center of the walker. 11. Start again from step 1. Helpful Tips Check with your healthcare provider about the right walking aid to use. Ask about a walker with a seat attached. Check the tips of your cane or walker to make sure they have nonskid covers. Move slowly from room to room. Dont garrett. Sit down to get dressed. Use a neena pack or backpack to keep your hands free. Get help for jobs that mean climbing, even on a stepstool. Kel Patient Education Copyright 2008 - 2010 Kel except where otherwise noted. Treating Urinary Incontinence in Men You can't always control the release of urine. You may leak urine. Or you may not be able to hold your urine until you can get to a bathroom. This is called urinary incontinence. The problem can be managed. Talk to your doctor about your treatment options. Taking Medications Prescription medications may help you. They may: Help the sphincter to work better. (This is the muscle that closes to keep urine from leaking out of the bladder.) Help stop the bladder from tomeka too often to push urine out. Help the bladder muscles contract with more force. Help relax the sphincter muscle and allow urine to flow more freely. Making Changes to Your Routine Certain changes in your daily routine may help. These include: Avoiding caffeine and alcohol. Using timed voiding. This is following a schedule for drinking fluids and urinating. Doing Kegel exercises daily. These exercises involve tightening the muscles in your sphincter and around your bladder to help strengthen them. Your doctor can explain how to do them. Using a Catheter A catheter is a narrow tube that is inserted through the urethra into the bladder. It drains urine.A condom catheter covers the penis. It channels urine into a collection bag. It is worn most of thetime. Intermittent catheterization means inserting a catheter to drain the bladder, then removing it. This is done on a regular schedule. Having Surgery If other options don't work, surgery may be recommended. If surgery is an option, your healthcare provider can discuss it with you and explain its risks and benefits. Healing After Prostate Surgery Surgery on the prostate gland can cause incontinence. Most often, the incontinence is only for a short time. It clears up when healing is complete. Very rarely, prostate surgery can result in permanent incontinence. in this encounter Progress Notes * Elias Cleary DO - 07/23/2017 1:09 PM EST Formatting of this note may be different from the original. Subjective: Jacques Alicea is a 67 year old male. Chief Complaint Patient presents with PHYSICAL-EXAM MEDICATION ADMINISTRATION Flu and/or Pneumo Inj HPI: Pt here for routine physical. Pt feels generally well since last visit Pt complains of chronic anxiety with intermittent episodes of palpitations. Pt denies chest pain, SOB or edema. Pt denies lightheadedness or syncope. Pt states that he received psychotherapy 2 years ago with some improvement. Pt complains of sleep disturbance. Pt denies suicidal ideation. Pt also complains of chronic constipation with abdominal cramping. Pt denies nausea, vomiting melena or hematochezia. Pt states that his weight is stable. Pt denies heartburn or excess gas. Pt also complains of urinary frequency and nocturia. Pt denies dysuria, hematuria or incontinence. Pt complains of decrease urinary stream and dribbling of urine. Pt also complains of low back pain and stiffness and bilateral foot pain. Pt denies muscle weaknessor numbness. ROS otherwise negative. PMH: Patient Active Problem List Diagnosis Code Mixed dyslipidemia E78.2 Sarcoidosis of lung (HCC) D86.0 Routine medical exam Z00.00 Special screening for malignant neoplasms, colon Z12.11 Need for prophylactic vaccination against Streptococcus pneumoniae (pneumococcus) Z23 PVC (premature ventricular contraction) I49.3 Impaired fasting glucose R73.01 Dizziness R42 Palpitations R00.2 Current Outpatient Prescriptions Medication Sig Dispense Refill tamsulosin (FLOMAX) 0.4 MG Capsule Take 1 Cap by mouth daily. 30 Cap 2 Linaclotide (LINZESS) 145 MCG Capsule Take 1 Cap by mouth daily before breakfast. 30 Cap 2 ASPIRIN 325 MG PO TABS one pill each day at bedtime Past Medical History: Diagnosis Date [...] performed by Dale Whitlock MD at ENDOSCOPY [facility] COLONOSCOPY, DIAGNOSTIC (RECTUM) 12/28/2015 adenomatous polyp, diverticulosis, repeat 3 yrs/COLONOSCOPY FLEXIBLE PROXIMAL DIAGNOSTIC performed by Enid John MD at ENDOSCOPY [facility] COLONOSCOPY/REMOVE LESION 04/27/2010 2 polyps tubulovillous adenomas--repeat in 6 months INFORMATION right foot surgery for plantar fascitis REMOVE TONSILS & ADENOIDS, UNDER 12 Review of patient's allergies indicates: No Known Allergies Family History Problem Relation Age of Onset Neurological Disorder Mother dementia No Past Hx Father NO HEALTH HISTORY Diabetes Sister dx in 20's Hypertension Sister No family status information on file. Social History Social History Marital status: Spouse name: N/A Number of children: N/A Years of education: N/A Occupational History retired Social History Main Topics Smoking status: Former Smoker Packs/day: 1.00 Years: 12.00 Types: Cigarettes Quit date: 07/22/1974 Smokeless tobacco: Never Used Alcohol use No Drug use: No Sexual activity: No Comment: 3 children Other Topics Concern Not on file Social History Narrative Review of Systems Constitutional: Negative for chills, diaphoresis, fatigue, fever and unexpected weight change. HENT: Negative for congestion, ear pain, rhinorrhea and sore throat. Eyes: Negative for pain, discharge, redness, itching and visual disturbance. Respiratory: Negative for cough, chest tightness, shortness of breath and wheezing. Cardiovascular: Positive for palpitations. Negative for chest pain and leg swelling. Gastrointestinal: Positive for abdominal pain and constipation. Negative for blood in stool, diarrhea, nausea and vomiting. Endocrine: Negative for cold intolerance, heat intolerance, polydipsia, polyphagia and polyuria. Genitourinary: Positive for frequency. Negative for decreased urine volume, difficulty urinating, dysuria, flank pain and hematuria. Nocturia. Musculoskeletal: Positive for back pain. Negative for gait problem, joint swelling, myalgias, neck pain and neck stiffness. Skin: Negative for color change, pallor, rash and wound. Neurological: Negative for dizziness, weakness, numbness and headaches. Hematological: Negative for adenopathy. Does not bruise/bleed easily. Psychiatric/Behavioral: Positive for dysphoric mood and sleep disturbance. Negative for suicidal ideas. The patient is nervous/anxious. Objective: BP 136/70 | Pulse 72 | Temp (Src) 97.2 (Tympanic) | Resp 16 | Ht 5' 10" (1.778m) | Wt 175 lbs (79.379kg) | BMI 25.11 kg/m | BSA 1.98 m Physical Exam Constitutional: He is oriented to person, place, and time. He appears well- developed and well-nourished. No distress. HENT: Head: Normocephalic and atraumatic. Right Ear: External ear normal. Left Ear: External ear normal. Mouth/Throat: Oropharynx is clear and moist. Eyes: Conjunctivae and EOM are normal. Pupils are equal, round, and reactive to light. Right eye exhibits no discharge. Left eye exhibits no discharge. Neck: Normal range of motion. Neck supple. No thyromegaly present. Cardiovascular: Regular rhythm, S2 normal and normal heart sounds. Frequent extrasystoles are present. No murmur heard. Pulmonary/Chest: Effort normal and breath sounds normal. No respiratory distress. He has no wheezes. He has no rales. Abdominal: Soft. Bowel sounds are normal. He exhibits no distension and no mass. There is no tenderness. There is no rebound and no guarding. Hernia confirmed negative in the right inguinal area and confirmed negative in the left inguinal area. Genitourinary: Rectum normal, testes normal and penis normal. Rectal exam shows guaiac negative stool. Prostate is enlarged. Prostate is not tender. Genitourinary Comments: Prostate enlarged, smooth , with no discreet palpable nodules. Musculoskeletal: He exhibits tenderness. He exhibits no edema or deformity. Lumbar back: He exhibits decreased range of motion and tenderness. Lumbar tender with decreased ROM flexion L1-L5 Lymphadenopathy: He has no cervical adenopathy. Neurological: He is alert and oriented to person, place, and time. He has normal strength. He displays abnormal reflex. No cranial nerve deficit. He displays a negative Romberg sign. Reflex Scores: Patellar reflexes are 1+ on the right side and 1+ on the left side. Achilles reflexes are 0 on the right side and 0 on the left side. Skin: Skin is warm and dry. No rash noted. He is not diaphoretic. No erythema. Psychiatric: His speech is normal and behavior is normal. Judgment and thought content normal. His mood appears anxious. Cognition and memory are normal. He exhibits a depressed mood. He expresses nosuicidal ideation. ASSESSMENT/PLAN: Z00.00 Well adult exam (primary encounter diagnosis) Pt counseled regarding preventative car screening. Advise continue cardiac diet and exercise program. F41.9 Anxiety Plan: Advise refer back to psychotherapy and consider start SSRI and referral to psychiatrist if symptoms persist or worsen, Referral: 1. Psychology referral op K58.1 Irritable bowel syndrome with constipation Plan:blkand high fiber diet and exercise Lab: 1. Cbc/diff Future expected: 07/23/2017 Medications: 1. Linaclotide 145 mcg po caps Sig:Take 1 cap by mouth daily before breakfast. 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 Lab: 1. Psa Future expected: 07/23/2017 2. Compr metab panel Future expected: 07/23/2017 3. Cbc/diff Future expected: 07/23/2017 4. Routine urinalysis Medications: 1. Tamsulosin hcl 0.4 mg po caps Sig:Take 1 cap by mouth daily. M51.36 Lumbar degenerative disc disease Pt counseled regarding home therapeutic exercise program. Consider x-ray of lumbar spine and refer to physical therapist if symptoms persist or worsen I49.3 Pvc (premature ventricular contraction) Plan:avoid caffeinated beverages and OTC decongestants. . Lab: 1. Compr metab panel Future expected: 07/23/2017 2. Cbc/diff Future expected: 07/23/2017 3. Tsh w/ft4 if tsh is indicated Future expected: 07/23/2017 4. Lipid panel Future expected: 07/23/2017 Echocardiology: 1. Echo, stress (exercise) Ek. Ekg Holter: 1. Holter complete (comm prac) R73.01 Impaired fasting glucose Plan:pt counseled regarding low sugar low carb diet and exercise program Lab: 1. Compr metab panel Future expected: 07/23/2017 2. Lipid panel Future expected: 07/23/2017 3. Hemoglobin a1c Future expected: 07/23/2017 4. Routine urinalysis Z13.9 Risk and functional assessment Plan: Nursin. Pat scrn for fall risk 2. Pres or abs of urin incont as 3. Urin incont plan of care doc Z23 Need for prophylactic vaccination and inoculation against influenza Plan: Immunizations/injection: 1. Influenza vacc, quad, pf, 6 months & up, 0.5 ml, im Z11.59 Need for hepatitis c screening test F17.200 Tobacco use disorder Plan: Medical imagin. Us aaa screen, vascular lab Future expected: 07/23/2017 Follow up: Return in about 3 months (around 10/21/2017). Elias Cleary DO * Alexandra Eldridge, RN - 07/23/2017 9:09 AM EST Urinary Incontinence Plan of Care Documentation: Current medications reconciled. Patient encouraged to: Practice kegal exercises Provide education materials Use the restroom every 2 hours throughout the day Limit caffeine, alcohol, spicy foods and acidic foods Keep a bladder diary Limit fluid intake 3-4 hours before bed Lose weight Prevent constipation Take fluid pills at a time when you can get to the bathroom quickly Control sugar better if diabetic Limit fluid intake to 60 oz. per day Wear support stockings (TEDs)if you have edema Alexandra Eldridge RN 07/23/2017 PRE - ADMINISTRATION DOCUMENTATION Are you allergic to latex? No Are you allergic to eggs or egg products? No Are you experiencing any cold symptoms or fever? No Have you had Guillain-Dillon Syndrome (an illness that causes paralysis)? No Have you had the flu shot in the past? YES Have you ever had a reaction to the flu shot? No Alexandra Eldridge RN, 07/23/2017 9:10 AM Immunization Administration Documentation Time Out Procedure Performed: Yes Patient Identified (Ask Name/Date of ): Yes Does the patient have a fever greater than 101 degrees today? No Patient allergic to latex? No VFC Stock: No Immunization(s) verified: Yes, Immunization Name: Flu, VIS Sheet(s) given: Yes Verified Side and Site: Yes Verified Shot(s) with Parent(s)/Patient: Yes in this encounter Nursing Notes * Alexandra Eldridge, BRENDA - 07/23/2017 9:09 AM EST Formatting of this note may be different from the original. Chief Complaint Patient presents with PHYSICAL-EXAM in this encounter Plan of Treatment Upcoming Encounters Date Type Specialty Care Team Description 07/25/2017 Imaging Vascular Lab [id number] [address] [place] [address] [phone] Tobacco use disorder* 07/25/2017 Cardiac Studies Cardiac Studies Nurse Magen Cardio [facility] [address] [place] [address] [phone] 08/08/2017 Imaging Cardiac Studies [facility], Benefits Clerk [address] [place] [address] [phone] 10/21/2017 Office Visit Family Practice Elias Cleary DO [address] [place] [address] [phone] Scheduled Tests Name Priority Associated Diagnoses Order S true US AAA SCREEN, VASCULAR LAB Routine Tobacco use disorder Expected: 07/23/2017 (Approximate), Expires: 07/23/2018 EKG Routine PVC (premature ventricular contraction) Ordered: 07/23/2017 PSA Routine BPH with obstruction/lower urinary tract symptoms Expected: 07/23/2017 (Approximate), Expires: 07/23/2018 COMPR METAB PANEL Routine BPH with obstruction/lower urinary tract symptoms PVC (premature ventricular contraction) Impaired fasting glucose Expected: 07/23/2017 (Approximate), Expires: 07/23/2018 CBC/DIFF Routine Irritable bowel syndrome with constipation BPH with obstruction/lower urinary tract symptoms PVC (premature ventricular contraction) Expected: 07/23/2017 (Approximate), Expires: 07/23/2018 TSH W/FT4 IF TSH IS INDICATED Routine PVC (premature ventricular contraction) Expected: 07/23/2017 (Approximate), Expires: 07/23/2018 LIPID PANEL Routine PVC (premature ventricular contraction) Impaired fasting glucose Expected: 07/23/2017 (Approximate), Expires: 07/23/2018 HEMOGLOBIN A1C Routine Impaired fasting glucose Expected: 07/23/2017 (Approximate), Expires: 07/23/2018 ROUTINE URINALYSIS Routine BPH with obstruction/lower urinary tract symptoms Impaired fasting glucose Ordered: 07/23/2017 ECHO, STRESS (EXERCISE) Routine PVC (premature ventricular contraction) Ordered: 07/23/2017 HOLTER COMPLETE (COMM PRAC) Routine PVC (premature ventricular contraction) Ordered: 07/23/2017 Scheduled Referrals Name Priority Associated Diagnoses Order S true PSYCHOLOGY REFERRAL OP Within 10 days (routine) Anxiety Ordered: 07/23/2017 Health Maintenance Due Date Last Done Comments ABDOMINAL AORTIC ANEURYSM (A AA) SCREENING 01/05/2013 Influenza Vaccine (FLU shot) (#1) 2017 06/28/2015, 05/04/2014, 05/25/2013, Additional history exists *DEPRESSION SCREENING, OZZY Fisher FOR PTS 18 AND OVER 03/10/2017 COLONOSCOPY-EVERY 3 YRS AGES 18-100 12/27/2018 12/28/2015, 12/28/2015, 10/09/2012, Additional history exists DIABETES SCREEN EVERY 3 YRS- AGE 45 AND ABOVE 03/12/2019 03/12/2016, 10/20/2014, 09/24/2013, Additional history exists LIPID SCREEN EVERY 5 YRS-MEN AGE 35-75 03/12/2021 03/12/2016, 10/20/2014, 10/20/2014, Additional history exists TETANUS EVERY 10 YEARS-TDAP (BOOSTRIX OR ADACEL) SUGGESTED IF NOT RECEIVED IN THE PAST. 02/13/2024 02/12/2014, 07/14/2009 PNEUMOCOCCAL ADULT 65 YRS AND OVER Completed 2015, 08/19/2013 as of this encounter Implants Not on fileas of this encounter Visit Diagnoses Diagnosis Well adult exam - Primary Routine general medical examination at a health care facility Anxiety Anxiety state, unspecified Irritable bowel syndrome wit h constipation Irritable bowel syndrome BPH with obstruction/lower u rinary tract symptoms Hypertrophy of prostate with urinary obstruction and other lower urinary tract symptoms (LUTS) Lumbar degenerative disc dis ease Degeneration of lumbar or lumbosacral intervertebral disc PVC (premature ventricular c ontraction) Other premature beats Impaired fasting glucose Risk and functional assessme nt Screening for unspecified condition Need for prophylactic vaccin ation and inoculation against influenza Need for hepatitis C screeni ng test Special screening examination for other specified viral diseases Tobacco use disorder in this encounter Insurance Payer Benefit Plan / Group Subscriber ID Type Phone Address MEDICARE MEDICARE A AND B [id number] Medicare [place] [employer] [facility] [id number] as of this encounter
--- OUTSIDE RECORDS SUMMARY | 2023-05-29 00:07 | External Medical Summary | Summary of Care ---
Author Name Unknown Organization [place] [address] Phone Care Team Providers Care Supervisor Ovens Name Role Phone Elias Duarte DO Primary Care Provider Reason for Referral * Evaluate & Treat - Unlimited Visits (Within 10 days (routine)) Status Reason Specialty Diagnoses / Procedures Referred By Contact Referred To Contact Pending Review Specialty Services Required Cardiovascular Medicine Diagnoses Symptomatic PVCs Elias Duarte DO [address] [facility] [place] [address] Reason for Visit * Reason Comments MEDICATION REFILL Encounter Details Date Type Department Care Team Description 07/31/2017 Telephone Family Practice [facility] [address] [facility] [place] [address] Elias Duarte DO [address] [facility] [place] [address] [phone] MEDICATION REFILL Allergies No Known Allergiesas of this encounter [...] metoprolol succinate XL (TOPROL XL) 25 MG [id number]:Symptom atic PVCs Take 1 Tab by mouth daily. 90 Tab 3 07/31/2017 Active as of this encounter Active Problems [...] Not on file as of this encounter Plan of Treatment Upcoming Encounters Date Type Specialty Care Team Description 08/08/2017 Imaging Cardiac Studies Gw, Ingot Caster 2 [address] [place] [address] [phone] 10/21/2017 Office Visit Family [facility] Elias Duarte DO [address] [place] [address] [phone] Scheduled Referrals Name Priority Associated Diagnoses Order S chedule CARDIOLOGY REFERRAL OP Within 10 days (routine) Symptomatic PVCs Ordered: 07/31/2017 Health Maintenance Due Date Last Done Comments [...] fileas of this encounter Visit Diagnoses Diagnosis Symptomatic PVCs - Primary Other premature beats in this encounter Insurance Payer Benefit Plan / Group Subscriber ID Type Phone Address MEDICARE MEDICARE A AND B [id number] Medicare [place] [employer] [facility] [id number] as of this encounter
--- OUTSIDE RECORDS SUMMARY | 2023-05-29 00:07 | External Medical Summary | Summary of Care ---
Author Name Unknown Organization [place] [address] Phone Care Team Providers Care Change Control Coordinator Name Role Phone Elias Duarte DO Primary Care Provider Reason for Visit * Reason Comments Cardiology Study Stress Echo * Precert (Routine) Status Reason Specialty Diagnoses / Procedures Referred By Contact Referred To Contact Closed Precert Cardiac Studies Diagnoses PVC (premature ventricular contraction) Procedures ECHO, STRESS (EXERCISE) Elias Duarte DO [address] [place] [address] Encounter Details Date Type Department Care Team Description 08/08/2017 Imaging Cardiac Studies, [facility] [address] [place] [address] Gw, Marketing Assistant 2 132 [facility] [place] [address] [phone] Arrived Allergies No Known Allergiesas of this encounter [...] metoprolol succinate XL (TOPROL XL) 25 MG [id number]:Symptom atic PVCs Take 1 Tab by mouth [...] Not on file as of this encounter Progress Notes * Abhi Ely, KEVIN - 08/08/2017 1:36 PM EST Stress Echo completed today per provider order. No complications. in this encounter Plan of Treatment Upcoming Encounters Date Type Specialty Care Team Description 08/16/2017 Office Visit Cardiology Kings Camargo MD [address] [place] [address] [phone] 10/21/2017 Office Visit Family Practice Elias Duarte DO [address] [place] [address] [phone] Health Maintenance Due Date Last Done Comments [...] Phone Address MEDICARE MEDICARE A AND B [id number] Medicare [facility] [place] [employer] [facility] [id number] as of this encounter
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
--- OUTSIDE RECORDS SUMMARY | 2023-05-29 00:07 | External Medical Summary | Summary of Care ---
Author Name Unknown Organization [place] [address] Phone Care Team Providers Care Speech Teacher Name Role Phone Elias Duarte DO Primary Care Provider [phone] Reason for Visit * Reason Comments Cardiology Study Encounter Details Date Type Department Care Team Description 07/25/2017 Cardiac Studies [facility], [facility] [address] [place] Nurse Cardio [facility] [address] [facility] [address] [phone] PVC (premature ventricular contraction)* Allergies No Known Allergiesas of this encounter [...] Date Type Specialty Care Team Description 07/25/2017 Cardiac Studies Cardiac Studies Nurse [facility] [address] [place] [address] [phone] PVC (premature ventricular contraction)* 08/08/2017 Imaging Cardiac Studies Gw, Dowel Setting Machine Operator 2 [address] [place] [address] [phone] 10/21/2017 Office Visit Family Practice Elias Duarte 132 [facility] [place] [address] [phone] Scheduled Tests Name Priority Associated Diagnoses Order S chedule HOLTER HOOK-UP (COMM PRAC) Routine PVC (premature ventricular contraction) Expected: 07/25/2017, Expires: 07/25/2018 HOLTER INTERP (COMM PRAC) Routine PVC (premature ventricular contraction) Expected: 07/25/2017 (Approximate), Expires: 08/25/2018 Health Maintenance Due Date Last Done Comments ABDOMINAL AORTIC ANEURYSM (A AA) SCREENING 01/05/2013 *DEPRESSION SCREENING, ANNUA Natalia FOR PTS 18 AND OVER 03/10/2017 COLONOSCOPY-EVERY [...] Completed 08/2017, 06/28/2015, 05/04/2014, Additional history exists as of this encounter Implants Not on fileas of this encounter Visit Diagnoses Diagnosis PVC (premature ventricular c ontraction) - Primary Other premature beats in this encounter Insurance Payer Benefit Plan / Group Subscriber ID Type Phone Address MEDICARE MEDICARE A AND B [id number] Medicare [place] [employer] [place] [facility] [id number] as of this encounter
--- OUTSIDE RECORDS SUMMARY | 2023-05-29 00:07 | External Medical Summary | Summary of Care ---
Author Name Unknown Organization [place] [address] Phone Care Team Providers Care Fabric And Accessories Estimator Name Role Phone Elias Duarte DO Primary Care Provider Reason for Visit * Reason Comments Returning Call Encounter Details Date Type Department Care Team Description 08/01/2017 Telephone Family Practice [facility] [address] [facility] [place] [address] Elias Duarte DO [address] [facility] [place] [address] [phone] Returning Call Allergies No Known Allergiesas of this encounter [...] metoprolol succinate XL (TOPROL XL) 25 MG [id number]:Symptom atic PVCs Take 1 Tab by mouth [...] encounter Miscellaneous Notes * Telephone Encounter - Madelin Webb LPN - 08/01/2017 12:32 PM EST Pt returning call, advised of message below. Pt voiced understanding. Pt hung up before transfer complete to make appt with cardiology. Scheduling calling pt to set up appt. * Telephone Encounter - Silvia Mcdonald LPN - 08/01/2017 11:51 AM EST Left message for patient to return call. Please give below info. * Telephone Encounter - Silvia Mcdonald, FEED MANAGER - 08/01/2017 11:50 AM EST ----- Message from Elias Duarte DO sent at 07/31/2017 6:26 PM EST ----- 24 holter monitor reviewed showing frequent PVCs and ventricular bigeminy. Advise start Toprol XL 25 mg 1 tab once daily and refer to channel specialist for further evaluation and treatment. in this encounter Plan of Treatment Upcoming Encounters Date Type Specialty Care Team Description 08/08/2017 Imaging Cardiac Studies Gw, Atv Mechanic 2 [address] [place] [address] [phone] 08/16/2017 Office Visit Cardiology Kings Camargo MD [address] [place] [address] [phone] 10/21/2017 Office Visit Family Practice Elias Duarte DO [address] [place] [address] [phone] Health Maintenance Due Date Last Done Comments [...] Phone Address MEDICARE MEDICARE A AND B [id number] Medicare [place] [employer] [facility] [id number] as of this encounter
--- OUTSIDE RECORDS SUMMARY | 2023-05-29 00:08 | External Medical Summary ---
Author Name Unknown Organization K0G:[facility], [address], [place] [address] Laboratory Report Ordering Provider Test Date Status MINE OCASIO MD 10/20/2014 07:09:00-0400 Final Obs # Observation Date Value ABNL Reference Status Pe rforming Location 1 ALT (Alanine aminotransferase) 10/20/2014 11:37-0400 13 10-50 U/L Final
--- OUTSIDE RECORDS SUMMARY | 2023-05-29 00:08 | External Medical Summary ---
Author Name Unknown Organization [employer] [facility] tem Support Name Relationship Address Phone Unavailable PROV Unknown Unavailable Laboratory Report Ordering Provider Test Date Status 05/02/2010 12:51-0400 F Obs # Observation Date Value ABNL Reference Status Pe rforming Location 1 [facility] 05/02/2010 22:49-0400 1.51 0.27-4.2 uIU/mL Final
--- OUTSIDE RECORDS SUMMARY | 2023-05-29 00:08 | External Medical Summary ---
Author Name NINFA BOB Organization K0G:[facility], [address] [place] [address] Support Name Relationship Address Phone MINE OCASIO MD Unknown Unavailabl e Laboratory Report Ordering Provider Test Date Status MINE OCASIO MD 09/21/2011 06:57:00-0500 Final Obs # Observation Date Value ABNL Reference Status Pe rforming Location 1 hours fasting 09/21/2011 06:58-0500 12 hours Final 2 Triglyceride 09/21/2011 13:40-0500 82 <200 mg/dL Final TRIGLYCERIDE REFERENCE RANGE S (mg/dL) __ <150 NORMAL 150-199 BORDERLINE HIGH 200-499 HIGH >499 VERY HIGH 3 Cholesterol 09/21/2011 13:40-0500 141 <200 m g/dL Final TOTAL CHOLESTEROL REFERENCE RANGES(mg/dL) __ <200 DESIRABLE 200-239 BORDERLINE HIGH >239 HIGH 4 HDL 09/21/2011 13:40-0500 23 L 40-59 mg/d L Final HDL CHOLESTEROL REFERENCE RA NGES(mg/dL) __ <40 LOW >59 HIGH 5 Cholesterol / HDL ratio 09/21/2011 13:40-0500 6.1 Final 6 LDL, (calculated) 09/21/2011 13:40-0500 102 0-129 mg/dL Final LDL CHOLESTEROL REFERENCE RA NGES(mg/dL) __ <100 OPTIMAL GOAL FOR HIGH R ISK PATIENTS 100-129 NEAR OR ABOVE NORMAL 130-159 BORDERLINE HIGH 160-189 HIGH >189 VERY HIGH TRIGLYCERIDE REFERENCE RANGES (mg/dL) <150 NORMAL 150-199 BORDERLINE HIGH 200-499 HIGH >499 VERY HIGH TOTAL CHOLESTEROL REFERENCE RANGES(mg/dL) <200 DESIRABLE 200-239 BORDERLINE HIGH >239 HIGH HDL CHOLESTEROL REFERENCE RANGES(mg/dL) <40 LOW >59 HIGH LDL CHOLESTEROL REFERENCE RANGES(mg/dL) <100 OPTIMAL GOAL FOR HIGH RISK PATIENTS 100-129 NEAR OR ABOVE NORMAL 130-159 BORDERLINE HIGH 160-189 HIGH >189 VERY HIGH
--- OUTSIDE RECORDS SUMMARY | 2023-05-29 00:08 | External Medical Summary ---
Author Name Unknown Address [address] [place] [address] Phone Organization K0G:[facility] [address] [place] [address] Laboratory Report Ordering Provider Test Date Status AKIKO RODNEY DO 03/12/2016 09:19:00 Final Obs # Observation Date Value Abnormality Reference Status Performing Location 0 BUN 03/12/2016 10:48 13 6-20 Final [facility] [address] [place] [address] 1 Creatinine 03/12/2016 10:48 1.0 0.6-1.2 Final GFR should be used to assess renal function. Plasma/Serum creatinine may not be able to properly reflect renal function in some cases. 2 Sodium 03/12/2016 10:48 142 135-146 Final 3 Potassium 03/12/2016 10:48 4.3 3.5-5.1 Final 4 Cl 03/12/2016 10:48 102 98-107 Final 5 CO2 03/12/2016 10:48 28 22-32 Final 6 Anion gap 03/12/2016 10:48 12 7-15 Final 7 Glucose 03/12/2016 10:48 98 70-120 Final 8 Albumin 03/12/2016 10:48 4.3 3.8-5.0 Final 9 AST (Aspartate aminotransferase) 03/12/2016 10:48 21 10-50 Final 10 Alk Phos 03/12/2016 10:48 72 0-153 Final 11 Bilirubin, Total 03/12/2016 10:48 0.5 0-1.2 Final 12 Calcium 03/12/2016 10:48 9.5 8.4-10.2 Final 13 Protein 03/12/2016 10:48 7.3 6.0-8.3 Final 14 ALT (Alanine aminotransferase) 03/12/2016 10:48 13 10-50 Final 15 E Glom Filt Rate 03/12/2016 10:48 >60.0 >60 Final If patient is [place] an, multiply estimated GFR by 1.159.
--- OUTSIDE RECORDS SUMMARY | 2023-05-29 00:08 | External Medical Summary ---
Author Name AKIKO PANDA Organization K01:[facility], [address] [place] [id number] Support Name Relationship Address Phone AKIKO PANDARASHAUN LETI Unknown Unavailable Laboratory Report Ordering Provider Test Date Status RASHAUN WHARTON DO 07/24/2012 09:54:00-0500 Final Obs # Observation Date Value ABNL Reference Status Pe rforming Location 1 PSA 07/24/2012 17:36-0500 0.69 <4.1 ng/mL Final
--- OUTSIDE RECORDS SUMMARY | 2023-05-29 00:08 | External Medical Summary ---
Author Name Unknown Organization K01:[facility], [address] [facility] [address] Support Name Relationship Address Phone MINE OCASIO MD PROV Unknown Unavailable Laboratory Report Ordering Provider Test Date Status MINE OCASIO MD 10/10/2010 16:16-0400 Final Obs # Observation Date Value ABNL Reference Status Pe rforming Location 1 BUN 10/10/2010 22:18-0400 19 6-20 mg/dL Final 2 Creatinine 10/10/2010 22:18-0400 1.0 0.7-1.5 mg/dL Final 3 Sodium 10/10/2010 22:18-0400 140 135-146 mmol/L Final 4 Potassium 10/10/2010 22:18-0400 3.9 3.5-5.1 mmol/L Final 5 Cl 10/10/2010 22:18-0400 102 98-111 mmol/L Final 6 CO2 10/10/2010 22:18-0400 27 22-32 mmol/L Final 7 Glucose 10/10/2010 22:18-0400 88 70-120 mg/dL Final 8 Albumin, Serum 10/10/2010 22:18-0400 4.3 3.8-5.0 g/dL Final 9 AST (Aspartate aminotransferase) 10/10/2010 22:18-0400 21 10-50 U/L Final 10 Alk Phos 10/10/2010 22:18-0400 68 25-125 U/L Final 11 Bilirubin, Total 10/10/2010 22:18-0400 0.6 0.3-1.3 mg/dL Final 12 Calcium 10/10/2010 22:18-0400 9.4 8.3-10.5 mg/dL Final 13 Protein 10/10/2010 22:18-0400 6.9 6.0-8.3 g/dL Final 14 ALT (Alanine aminotransferase) 10/10/2010 22:18-0400 18 10-50 U/L Final 15 Anion gap 10/10/2010 22:18-0400 11 7-15 mmol/L Final 16 GFR / 1.73 sq M.predicted 10/10/2010 22:18-0400 >60.0 >60 mL/min Final
--- OUTSIDE RECORDS SUMMARY | 2023-05-29 00:08 | External Medical Summary ---
Author Name Unknown Address [address] [address] Phone Organization K0G:[facility] [address] [place] [address] Laboratory Report Ordering Provider Test Date Status AKIKO RODNEY DO 03/12/2016 09:19:00 Final Obs # Observation Date Value Abnormality Reference Status Performing Location 0 WBC, Total 03/12/2016 09:58 6.40 4.00-10.80 Final [facility] [address] [place] [address] 1 RBC 03/12/2016 09:58 4.83 4.50-5.25 Final 2 Hemoglobin 03/12/2016 09:58 15.8 14.0-16.8 Final 3 HCT 03/12/2016 09:58 44.7 40.0-48.4 Final 4 MCV 03/12/2016 09:58 92.5 82.0-99.5 Final 5 MCH 03/12/2016 09:58 32.7 27.0-34.0 Final 6 MCHC 03/12/2016 09:58 35.3 32.0-36.0 Final 7 RDW 03/12/2016 09:58 12.0 11.5-15.5 Final 8 Platelets 03/12/2016 09:58 193 140-400 Final 9 MPV 03/12/2016 09:58 11.0 6.6-11.1 Final
--- OUTSIDE RECORDS SUMMARY | 2023-05-29 00:08 | External Medical Summary ---
Author Name Unknown Organization K0G:[facility], [address] [place] [address] Laboratory Report Ordering Provider Test Date Status MINE OCASIO MD 10/20/2014 07:09:00-0400 Final Obs # Observation Date Value ABNL Reference Status Pe rforming Location 1 hours fasting 10/20/2014 07:10-0400 12 hours Final 2 Triglyceride 10/20/2014 13:52-0400 136 <200 mg/dL Final TRIGLYCERIDE REFERENCE RANGE S (mg/dL) <150 NORMAL 150-199 BORDERLINE HIGH 200-499 HIGH >499 VERY HIGH 3 Cholesterol 10/20/2014 13:52-0400 176 <200 m g/dL Final TOTAL CHOLESTEROL REFERENCE RANGES(mg/dL) <200 DESIRABLE 200-239 BORDERLINE HIGH >239 HIGH 4 HDL 10/20/2014 13:52-0400 30 L >39 mg/dL Final HDL CHOLESTEROL REFERENCE RA NGES(mg/dL) <40 LOW(UNDESIRABLE) >59 HIGH(DESIRABLE) 5 Cholesterol / HDL ratio 10/20/2014 13:52-0400 5.9 Final 6 LDL, (calculated) 10/20/2014 13:52-0400 119 0-129 mg/dL Final LDL CHOLESTEROL REFERENCE RA NGES(mg/dL) <100 OPTIMAL GOAL FOR HIGH R ISK PATIENTS 100-129 NEAR OR ABOVE NORMAL 130-159 BORDERLINE HIGH 160-189 HIGH >189 VERY HIGH TRIGLYCERIDE REFERENCE RANGES (mg/dL) <150 NORMAL 150-199 BORDERLINE HIGH 200-499 HIGH >499 VERY HIGH TOTAL CHOLESTEROL REFERENCE RANGES(mg/dL) <200 DESIRABLE 200-239 BORDERLINE HIGH >239 HIGH HDL CHOLESTEROL REFERENCE RANGES(mg/dL) <40 LOW(UNDESIRABLE) >59 HIGH(DESIRABLE) LDL CHOLESTEROL REFERENCE RANGES(mg/dL) <100 OPTIMAL GOAL FOR HIGH RISK PATIENTS 100-129 NEAR OR ABOVE NORMAL 130-159 BORDERLINE HIGH 160-189 HIGH >189 VERY HIGH
--- OUTSIDE RECORDS SUMMARY | 2023-05-29 00:08 | External Medical Summary ---
Author Name Unknown Organization [employer] [facility] tem Support Name Relationship Address Phone Unavailable PROV Unknown Unavailable Laboratory Report Ordering Provider Test Date Status 05/02/2010 12:51-0400 F Obs # Observation Date Value ABNL Reference Status Pe rforming Location 1 WBC # Bld 05/02/2010 14: 6.04 4.00-10.80 K/uL Final 2 RBC # Bld 05/02/2010 14: 4.95 4.50-5.25 M/uL Final 3 Hgb Bld-mCnc 05/02/2010 14: 15.8 14.0-16.5 g/dL Final 4 Hct Fr Bld 05/02/2010 14: 45.1 40.0-47.0 % Final 5 MCV RBC Qn 05/02/2010 14: 91.1 82.0-99.5 fL Final 6 MCH RBC Qn 05/02/2010 14: 31.9 27.0-34.0 pg Final 7 MCHC RBC-mCnc 05/02/2010 14: 35.0 32.0-36.0 g/dL Final 8 RDW RBC Qn 05/02/2010 14: 12.7 11.5-15.5 % Final 9 Platelet # Bld 05/02/2010 14: 204 150-400 K/uL Final 10 PMV Bld Qn 05/02/2010 14: 11.2 H 6.6-11.1 fL Final
--- OUTSIDE RECORDS SUMMARY | 2023-05-29 00:08 | External Medical Summary ---
Author Name Unknown Organization [employer] [facility] tem Support Name Relationship Address Phone Unavailable PROV Unknown Unavailable Laboratory Report Ordering Provider Test Date Status 04/04/2010 09:44-0400 F Obs # Observation Date Value ABNL Reference Status Pe rforming Location 1 Glucose [facility] 04/04/2010 11:26-0400 86 70-120 mg/dL Final
--- OUTSIDE RECORDS SUMMARY | 2023-05-29 00:08 | External Medical Summary ---
Author Name Unknown Organization [employer] [facility] tem Support Name Relationship Address Phone Unavailable PROV Unknown Unavailable Laboratory Report Ordering Provider Test Date Status 04/04/2010 09:44-0400 F Obs # Observation Date Value ABNL Reference Status Pe rforming Location 1 HOURS FASTING 04/04/2010 09:45-0400 12 hours Final 2 Trigl SerPl-nc 04/04/2010 22:27-0400 234 60-290 mg/dL Final 3 Cholest SerPl-nc 04/04/2010 22:27-0400 165 <200 mg/dL Final 4 HDLc SerPl-nc 04/04/2010 22:27-0400 25 L 40-59 mg/dL Final 5 Cholest/HDLc SerPl-mRto 04/04/2010 22:27-0400 6.6 Final 6 LDLc SerPl Calc-mCnc 04/04/2010 22:27-0400 93 0-100 mg/dL Final
--- OUTSIDE RECORDS SUMMARY | 2023-05-29 00:08 | External Medical Summary ---
Author Name Unknown Organization K01:[facility], [address] [id number] Laboratory Report Ordering Provider Test Date Status MINE OCASIO MD 09/24/2013 07:28:00-0500 Final Obs # Observation Date Value ABNL Reference Status Pe rforming Location 1 TSH 09/24/2013 13:40-0500 1.11 0.27-4.2 uIU/mL Final
--- OUTSIDE RECORDS SUMMARY | 2023-05-29 00:08 | External Medical Summary ---
Author Name Unknown Organization K0G:[facility], [address] [place] [address] Laboratory Report Ordering Provider Test Date Status RASHAUN WHARTON DO 10/20/2014 07:07:00-0400 Final Obs # Observation Date Value ABNL Reference Status Pe rforming Location 1 hours fasting 10/20/2014 07:08-0400 12 hours Final 2 Triglyceride 10/20/2014 13:51-0400 136 <200 mg/dL Final TRIGLYCERIDE REFERENCE RANGE S (mg/dL) <150 NORMAL 150-199 BORDERLINE HIGH 200-499 HIGH >499 VERY HIGH 3 Cholesterol 10/20/2014 13:51-0400 176 <200 m g/dL Final TOTAL CHOLESTEROL REFERENCE RANGES(mg/dL) <200 DESIRABLE 200-239 BORDERLINE HIGH >239 HIGH 4 HDL 10/20/2014 13:51-0400 30 L >39 mg/dL Final HDL CHOLESTEROL REFERENCE RA NGES(mg/dL) <40 LOW(UNDESIRABLE) >59 HIGH(DESIRABLE) 5 Cholesterol / HDL ratio 10/20/2014 13:51-0400 5.9 Final 6 LDL, (calculated) 10/20/2014 13:51-0400 119 0-129 mg/dL Final LDL CHOLESTEROL REFERENCE RA NGES(mg/dL) <100 OPTIMAL GOAL FOR HIGH R ISK PATIENTS 100-129 NEAR OR ABOVE NORMAL 130-159 BORDERLINE HIGH 160-189 HIGH >189 VERY HIGH 7 LDL DIRECT(REFLEX) 10/20/2014 13:51-0400 NOT APPLICABLE 0-100 mg/dL Final TRIGLYCERIDE REFERENCE RANGES (mg/dL) <150 NORMAL 150-199 [...]
--- OUTSIDE RECORDS SUMMARY | 2023-05-29 00:08 | External Medical Summary ---
Author Name Unknown Organization K09:[facility] [address] [place] [address] Laboratory Report Ordering Provider Test Date Status RASHAUN WHARTON DO 09/24/2013 07:29:00-0500 Final Obs # Observation Date Value ABNL Reference Status Pe rforming Location 1 Glucose 09/24/2013 12:03-0500 94 70-120 mg/dL Final
--- OUTSIDE RECORDS SUMMARY | 2023-05-29 00:08 | External Medical Summary ---
Author Name Unknown Address [address] [address] Phone Organization K0G:[employer] [address] [place] [address] Laboratory Report Ordering Provider Test Date Status AKIKO RODNEY DO 03/12/2016 09:19:00 Final Obs # Observation Date Value Abnormality Reference Status Performing Location 0 Fasting status - Reported 03/12/2016 09:21 12 Final [facility] [address] [place] [address] 1 Triglyceride 03/12/2016 17:15 178 <200 Final TRIGLYCERIDE REFERENCE RANGE S (mg/dL)<150 [id number] BORDERLINE [id number] HIGH>499 VERY HIGH 2 Cholesterol 03/12/2016 17:15 169 <200 Fin al TOTAL CHOLESTEROL REFERENCE RANGES(mg/dL)<200 [id number] BORDERLINE HIGH>239 HIGH 3 HDL 03/12/2016 17:15 34 Below low normal >39 Final HDL CHOLESTEROL REFERENCE RA NGES(mg/dL)<40 LOW(UNDESIRABLE)>59 HIGH(DESIRABLE) 4 Cholesterol / HDL ratio 03/12/2016 17:15 5.0 Final 5 LDL, (calculated) 03/12/2016 17:15 99 0-129 Final LDL CHOLESTEROL REFERENCE RA NGES(mg/dL)<100 OPTIMAL GOAL FOR HIGH RISK [id number] NEAR OR ABOVE [id number] BORDERLINE [id number] HIGH>189 VERY HIGH 6 LDL, (direct) 03/12/2016 17:15 NOT APPLICABLE 0- 129 Final
--- OUTSIDE RECORDS SUMMARY | 2023-05-29 00:08 | External Medical Summary ---
Author Name Unknown Organization K0G:[facility], [address] [place] [address] Laboratory Report Ordering Provider Test Date Status MINE OCASIO MD 09/24/2013 07:28:00-0500 Final Obs # Observation Date Value ABNL Reference Status Pe rforming Location 1 hours fasting 09/24/2013 07:29-0500 12 hours Final 2 Triglyceride 09/24/2013 14:0500 207 H <200 mg/dL Final TRIGLYCERIDE REFERENCE RANGE S (mg/dL) <150 NORMAL 150-199 BORDERLINE HIGH 200-499 HIGH >499 VERY HIGH 3 Cholesterol 09/24/2013 14:0500 175 <200 m g/dL Final TOTAL CHOLESTEROL REFERENCE RANGES(mg/dL) <200 DESIRABLE 200-239 BORDERLINE HIGH >239 HIGH 4 HDL 09/24/2013 14:0500 31 L >39 mg/dL Final HDL CHOLESTEROL REFERENCE RA NGES(mg/dL) <40 LOW(UNDESIRABLE) >59 HIGH(DESIRABLE) 5 Cholesterol / HDL ratio 09/24/2013 14:0500 5.6 Final 6 LDL, (calculated) 09/24/2013 14:0500 103 0-129 mg/dL Final LDL CHOLESTEROL REFERENCE RA [...]
--- OUTSIDE RECORDS SUMMARY | 2023-05-29 00:08 | External Medical Summary ---
Author Name Unknown Organization K0G:[facility], [address], [place] [address] Laboratory Report Ordering Provider Test Date Status RASHAUN WHARTON DO 10/20/2014 07:07:00-0400 Final Obs # Observation Date Value ABNL Reference Status Pe rforming Location 1 BUN 10/20/2014 11:34-0400 18 6-20 mg/dL Final 2 Creatinine 10/20/2014 11:34-0400 1.0 0.7-1.3 mg/dL Final GFR should be used to assess renal function. Plasma/Serum creatinine may not be able to properly reflect renal function in some cases. 3 Sodium 10/20/2014 11:34-0400 143 135-146 mm ol/L Final 4 Potassium 10/20/2014 11:34-0400 4.1 3.5-5.1 mmol/L Final 5 Cl 10/20/2014 11:34-0400 103 98-107 mmo l/L Final 6 CO2 10/20/2014 11:34-0400 28 22-32 mmol /L Final 7 Anion gap 10/20/2014 11:34-0400 12 7-15 mmo l/L Final 8 Glucose 10/20/2014 11:34-0400 93 70-120 mg/ dL Final 9 Albumin 10/20/2014 11:34-0400 4.2 3.8-5.0 g/ dL Final 10 AST (Aspartate aminotransferase) 10/20/2014 11:34-0400 18 10-50 U/L Final 11 Alk Phos 10/20/2014 11:34-0400 65 0-153 U/L Final 12 Bilirubin, Total 10/20/2014 11:34-0400 0.5 0 .3-1.3 mg/dL Final 13 Calcium 10/20/2014 11:34-0400 9.2 8.3-10.5 m g/dL Final 14 Protein 10/20/2014 11:34-0400 6.9 6.0-8.3 g/ dL Final 15 ALT (Alanine aminotransferase) 10/20/2014 11:34-0400 13 10-50 U/L Final 16 E GLOM FILT RATE 10/20/2014 11:34-0400 >60.0 > 60 Final If patient is [place] an, multiply estimated GFR by 1.159. GFR should be used to assess renal function. Plasma/Serum creatinine may not be able to properly reflect renal function in some cases. If patient is , multiply estimated GFR by 1.159.
--- OUTSIDE RECORDS SUMMARY | 2023-05-29 00:08 | External Medical Summary ---
Author Name Unknown Organization [facility] tem Support Name Relationship Address Phone Unavailable PROV Unknown Unavailable Laboratory Report Ordering Provider Test Date Status 04/04/2010 09:44-0400 F Obs # Observation Date Value ABNL Reference Status Pe rforming Location 1 PSA SCREENING 04/04/2010 22:34-0400 0.50 <4.1 ng/mL Final
--- OUTSIDE RECORDS SUMMARY | 2023-05-29 00:08 | External Medical Summary ---
Author Name Unknown Address [facility] [address] [id number] Phone Organization K01:[facility] [address] [id number] Laboratory Report Ordering Provider Test Date Status AKIKO RODNEY DO 03/12/2016 09:19:00 Final Obs # Observation Date Value Abnormality Reference Status Performing Location 0 TSH 6 17:50 1.17 0.27-4.2 Final [facility] [address] [facility] [address] 1 T4, Free 6 17:50 NOT APPLICABLE 0.9-1.7 Final
--- NOTE | 2023-05-29 08:22 | Discharge Summary ---
Date of Service May 28, 2023 Admission HPI Per Admitting Provider History obtained from patient, family, and records. Limited history from patient secondary to confusion. Medical history significant for CVA as per records, hypertension, hyperlipidemia, Parkinson's disease, cognitive impairment, sarcoidosis, BPH, colonic polyps/diverticulosis/hemorrhoids, past tobacco abuse. Patient noted to have generalized weakness and difficulty ambulation at custodial. Patient with visual hallucinations as per son. Patient denies headache, chest pain, abdominal pain, black/bloody stools. Patient brought to the ER for evaluation. Medical History as above Surgical History : Cataract surgeries, right foot surgery, tonsillectomy/adenoidectomy Family History : DM, dementia Personal/Social history : Past tobacco abuse, no EtOH intake, custodial resident Admission Exam Per Admitting Provider Physical Exam: GENERAL: Comfortable, masklike facies, slightly hard of hearing, no respiratory distress SKIN: Pallor, warm HEENT: Pale palpebral conjunctivae, no ptosis, dry buccal mucosa NECK : Supple, no tenderness CHEST : CTA, no tenderness HEART : RRR, no obvious murmurs ABDOMEN: Some distention, nontender RECTAL : Intact sphincter, blood tinged stool (FOBT positive) EXTREMITIES : No LE swelling/tenderness, no other conspicuous deformities noted NEUROLOGIC : Oriented to place and day, no facial asymmetry, slightly hard of hearing, intention tremors, gait and stance not assessed Principal Diagnosis Ambulatory dysfunction, Parkinson's disease with cognitive impairment, hypertension, history of sarcoidosis Discharge Exam Lying in bed comfortably with tremors of Parkinson's disease Constitutional well developed, well nourished, + ill appearing and average body habitus Eyes PERRL, conjunctivae normal, anicteric sclerae ENMT external ear and nose normal, oropharynx normal Neck trachea midline, no thyromegaly Respiratory no respiratory distress Auscultation: lungs clear to auscultation bilaterally Cardiovascular Rate/Rhythm: regular rate and regular rhythm; not tachycardic Heart Sounds: normal S1, normal S2 and + murmur Extremities: no edema Gastrointestinal (Abdomen) Inspection/Auscultation: normal bowel sounds; abdomen not distended Percussion/Palpation: abdomen soft; abdomen nontender Neurologic normal touch/pain/proprioception and moves all extremities; no focal motor deficits Psychiatric A+Ox3, euthymic affect Lymphatic no cervical or axillary lymphadenopathy Discharge Data Allergies Allergy/AdvReac Type Severity Reaction Status Date / Time No Known Allergies Allergy Verified 05/22/23 22:09 Consultations 05/22/23 20:57 ED Decision to Admit Stat Ordered Studies 05/22/23 17:38 CT head/brain wo con Stat 05/23/23 00:16 MR angio head wo con Urgent 05/23/23 00:17 MR brain wo con Urgent Hospital Course (1) Ambulatory dysfunction: Ambulatory Dysfunction Stroke-like symptoms Rule out new CVA hx CVA on previous imaging-(Patient/family unaware of previous diagnosis.) head CT, brain MRI and MRA with no acute stroke, previous stroke in basal ganglia noted however Continue home pravastatin, holding home aspirin in setting of possible GI bleed PT/OT- recommending return to [facility]- currently awaiting placement per , staff not available over the weekend. PCP follow up after d/c No signs and or symptoms of stroke and/or TIA He will get PT evaluation and possible discharge tomorrow Remains stable and physical therapy recommended to continue PT on discharge He will be discharged this afternoon As per the PT note-the patient is demonstrating increased Parkinson's type balance deficit and he is now requiring assistance for all transfers and ambulation. He would benefit from a wheelchair for safety and distance mobility. Patient will benefit from PT while at [facility] with transfer to rehab appropriate to regain functional independence return to [facility] level and reduce risk of falls with additional injury. He will need to continue PT and OT while at the rehab hx Parkinson's disease with cognitive impairment Acute Delirium Pt confused the day prior- states he feels like he is being held against his will Per nursing threatening to call the police Received a one time dose of zyprexa 5mg IM on 05/23 Continue home carbidopa-levodopa No more confusion-symptoms are due to Parkinson's disease Has usual parkinsonian tremors New onset anemia Hematochezia on FOBT Hgb currently stable at 13 hx colonic polyps/diverticulosis/hemorrhoids from 2022 colonoscopy Patient without abdominal pain complaints. Holding home aspirin Continue to monitor hgb-hemoglobin remains stable at 13.8 HTN BP currently controlled Blood pressure remains on the lower side at 97/67 Advised to drink more fluid HLD Continue home pravastatin as noted above Sarcoidosis Stable BPH on Flomax Diet: HH DVT prophylaxis: previously on SCDs with concern for bleeding but hgb stable. Started on lovenox. Full code as per son/POA, Mr. Cresencio Alicea. Dispo: return to [facility] will discharge this afternoon Total Time Total Time Spent Total Time Spent (In Minutes): 45 minutes Discharge Plan Discharge Items Patient Disposition: Personal [facility] Reason For Visit: ANEMIA, GI BLEED, WEAKNESS Discharge Diagnosis: Ambulatory dysfunction, Parkinson's disease with cognitive impairment, hypertension, history of sarcoidosis Condition on Discharge: Fair Activity: As commented below Activity Comment: We will need to continue PT and OT Non-emergency contact: Primary Care Provider Call non-emergency contact if: you have any medication questions and your symptoms worsen Follow-up/Referrals: [place] Alan [Primary Care Provider] - Darío Marshall CRNP [Outside Practitioners] - (Date & Time 06/03/2023 2:40 PM Provider Darío Marshall CRNP Department Family Practice [facility] ) Diet: Heart Healthy Diet Texture: Easy to Chew Addtl Attending Provider Instructions: Please take precautions to avoid falls Please take extra time to initiate any activities Please take your medications as advised Keep follow-up appointments with your healthcare providers Pending Studies at Discharge: No Stand-Alone Forms: My [facility] [place], Smoking Cessation, Medications to Prevent Stroke Skilled Items Patient informed of condition?: Yes DNR: No Discharge Level of Care: Skilled Communicable Disease: No Discharge Prognosis: Stable Lines: None Urinary Catheter: No Medications and DC Order Prescriptions: Continued aspirin 81 mg Tablet,Delayed Release (Dr/Ec) 81 mg PO DAILY carbidopa-levodopa 25-100 mg tablet 1 tab PO QID duloxetine 30 mg capsule,delayed release(DR/EC) 30 mg PO QAM polyethylene glycol 3350 [Miralax] 17 gram Powder In Packet 17 g PO QAM pravastatin 20 mg tablet 20 mg PO QPM tamsulosin 0.4 mg capsule 0.4 mg PO BID cyanocobalamin (vitamin B-12) 1,000 mcg/mL Solution 1,000 mcg IM QAM meclizine 25 mg Tablet,Chewable 25 mg PO BID PRN (Reason: Dizziness) Discharge Orders: Discharge Order (Routine); Ordered 05/28/23 Ordered By: Kathy Plascencia Admission Data Admit Date/Time: 05/22/23 23:12 Attending Provider: Kathy Plascencia Admit Provider: Gerber Montanez Primary Care Provider: Maximilian Hall Other Providers: Gerber Montanez Other Interventions: Discharge Summary Assessment (RN) Last Done: 05/28/23 14:23
== END 2023-05-28 15:57 | disposition home or self-care (01) | DRG 556 ==
LOC: ED 17:22 → EDINP 23:12 → SUATTDRO 23:12 → EDINP 05-23 00:48 → 2W 05-23 05:38

== ENCOUNTER 2024-07-20 08:21 | Inpatient (IN) ==
--- NOTE | 2024-07-20 09:00 | Emergency Department Note ---
History of Present Illness General Chief complaint: Confusion Stated complaint: AMS Time Seen by Provider: 07/20/24 08:34 History of Present Illness Provider complaint: Altered mental status 74-year-old male with history of Parkinson's disease presents to the emergency department from senior living for altered mental status. According to the nurse, EMS reported that the staff at the senior living stated that the patient woke up confused which is unlike him. No recent falls or traumas. Home Medications Medication Instructions Recorded Confirmed Type aspirin 81 mg tablet,delayed 81 mg PO QAM 05/22/23 07/20/24 History release carbidopa 25 mg-levodopa 100 mg 1 tab PO QID 05/22/23 07/20/24 History tablet duloxetine 30 mg capsule,delayed 30 mg PO QAM 05/22/23 07/20/24 History release meclizine 25 mg chewable tablet 25 mg PO BID PRN Dizziness 05/22/23 07/20/24 History polyethylene glycol 3350 17 gram 17 g PO QAM 05/22/23 07/20/24 History oral powder packet (Miralax) pravastatin 20 mg tablet 20 mg PO QPM 05/22/23 07/20/24 History tamsulosin 0.4 mg capsule 0.4 mg PO BID 05/22/23 07/20/24 History carbidopa ER 25 mg-levodopa 100 mg 1 tab PO HS 01/19/24 07/20/24 History tablet,extended release cyanocobalamin (vitamin B-12) 1,000 mcg PO QAM 01/19/24 07/20/24 History 1,000 mcg tablet (Vitamin B-12) midodrine 2.5 mg tablet 2.5 mg PO TID 07/20/24 07/20/24 History Allergies Allergy/AdvReac Type Severity Reaction Status Date / Time No Known Allergies Allergy Verified 07/20/24 10:34 Past Med/Surg History Problem List (Updated 07/20/24 @ 12:52 by Venkatesh Whiting MD) Pneumonia (Acute) COVID-19 (Acute) Ambulatory dysfunction Medical History (Updated 07/20/24 @ 12:52 by Venkatesh Whiting MD) B12 deficiency BPH loc w urin obs/LUTS Lumbar degenerative disc disease Dyslipidemia Irritable bowel syndrome with constipation CVA (cerebral vascular accident) Parkinson's disease Surgical History (Updated 12/30/24 @ 10:28 by Alexa Beavers PA-C) History of tonsillectomy and adenoidectomy History of foot surgery History of cataract surgery right 10/10/21 left 09/26/21 Social History Smoking Status: Former smoker Hx Alcohol Use: No Hx Substance Use: No Preferred Language: Tajik Communication Ability: Effective Electrical Worker Required: No Beliefs That Will Affect Care: None Current Living Situation: Other Current Living Situation Comment: Independent Living Feels Safe at Home: Yes Assistive Devices: Walker Physical Exam Vital Signs Vital Signs - 24 hr 07/20/24 08:08 07/20/24 08:09 07/20/24 08:09 Temperature 36.6 C Temperature Source Oral Pulse Rate 84 Pulse Rate [Apical] Pulse Rate from SpO2 Sensor Respiratory Rate 18 18 Blood Pressure 145/107 H Blood Pressure [Left Arm] Blood Pressure Mean 119 Blood Pressure Mean [Left Arm] Pulse Oximetry 96 96 Oxygen Delivery Method Room Air Room Air Room Air Sepsis Recent Fever Within 48 Hours No Sepsis New/Unexplained Change in Mental Status N/A Sepsis Action Taken by Nursing No Action Required 07/20/24 08:30 07/20/24 08:33 07/20/24 08:42 Temperature Temperature Source Pulse Rate 91 H 86 Pulse Rate [Apical] Pulse Rate from SpO2 Sensor 91 H 88 Respiratory Rate 24 21 Blood Pressure 145/107 H Blood Pressure [Left Arm] Blood Pressure Mean 109 Blood Pressure Mean [Left Arm] Pulse Oximetry 97 96 Oxygen Delivery Method Sepsis Recent Fever Within 48 Hours Sepsis New/Unexplained Change in Mental Status Sepsis Action Taken by Nursing 07/20/24 08:43 07/20/24 08:54 07/20/24 08:55 Temperature Temperature Source Pulse Rate 87 90 90 Pulse Rate [Apical] Pulse Rate from SpO2 Sensor 92 H Respiratory Rate 23 18 Blood Pressure Blood Pressure [Left Arm] Blood Pressure Mean Blood Pressure Mean [Left Arm] Pulse Oximetry 94 91 Oxygen Delivery Method Room Air Sepsis Recent Fever Within 48 Hours Sepsis New/Unexplained Change in Mental Status Sepsis Action Taken by Nursing 07/20/24 08:55 07/20/24 09:00 07/20/24 09:00 Temperature Temperature Source Pulse Rate Pulse Rate [Apical] Pulse Rate from SpO2 Sensor Respiratory Rate 18 Blood Pressure 134/77 134/77 Blood Pressure [Left Arm] Blood Pressure Mean 106 106 Blood Pressure Mean [Left Arm] Pulse Oximetry Oxygen Delivery Method Sepsis Recent Fever Within 48 Hours Sepsis New/Unexplained Change in Mental Status Sepsis Action Taken by Nursing 07/20/24 09:00 07/20/24 09:04 07/20/24 09:15 Temperature Temperature Source Pulse Rate 88 Pulse Rate [Apical] 88 87 Pulse Rate from SpO2 Sensor 88 Respiratory Rate 21 14 18 Blood Pressure Blood Pressure [Left Arm] 134/77 134/77 Blood Pressure Mean Blood Pressure Mean [Left Arm] 96 96 Pulse Oximetry 93 92 97 Oxygen Delivery Method Room Air Sepsis Recent Fever Within 48 Hours Sepsis New/Unexplained Change in Mental Status Sepsis Action Taken by Nursing 07/20/24 09:15 07/20/24 09:36 07/20/24 09:56 Temperature Temperature Source Pulse Rate 100 H Pulse Rate [Apical] 88 Pulse Rate from SpO2 Sensor Respiratory Rate 37 H 18 Blood Pressure 163/93 H Blood Pressure [Left Arm] 163/93 H Blood Pressure Mean 118 Blood Pressure Mean [Left Arm] 116 Pulse Oximetry 96 Oxygen Delivery Method Room Air Sepsis Recent Fever Within 48 Hours Sepsis New/Unexplained Change in Mental Status Sepsis Action Taken by Nursing 07/20/24 09:57 07/20/24 10:00 07/20/24 10:00 Temperature Temperature Source Pulse Rate 88 Pulse Rate [Apical] Pulse Rate from SpO2 Sensor 87 Respiratory Rate 21 Blood Pressure 121/88 121/88 Blood Pressure [Left Arm] Blood Pressure Mean 110 110 Blood Pressure Mean [Left Arm] Pulse Oximetry 96 Oxygen Delivery Method Sepsis Recent Fever Within 48 Hours Sepsis New/Unexplained Change in Mental Status Sepsis Action Taken by Nursing 07/20/24 10:00 07/20/24 10:03 Temperature Temperature Source Pulse Rate 87 Pulse Rate [Apical] Pulse Rate from SpO2 Sensor 91 H Respiratory Rate 21 Blood Pressure 121/88 Blood Pressure [Left Arm] Blood Pressure Mean 110 Blood Pressure Mean [Left Arm] Pulse Oximetry 97 Oxygen Delivery Method Sepsis Recent Fever Within 48 Hours Sepsis New/Unexplained Change in Mental Status Sepsis Action Taken by Nursing Physical Exam HENT: Exam performed. - Head: Normocephalic and atraumatic. - Right Ear: External ear normal. No mastoid erythema - Left Ear: External ear normal. No mastoid erythema - Mouth/Throat: The oropharynx is clear and moist. No trismus in the jaw. No dental abscesses or uvula swelling. No oropharyngeal exudate or tonsillar abscesses. EYES: Conjunctivae and EOM are normal. Pupils are equal, round, and reactive to light. Right eye exhibits no discharge. Left eye exhibits no discharge. No scleral icterus. NECK: Normal range of motion. Neck supple. No JVD present. No spinous process tenderness present. No tracheal deviation and normal range of motion present. CV: Normal rate, regular rhythm, normal heart sounds and intact distal pulses. There is no peripheral edema. Palpable radial pulses bue. PULM/CHEST: Effort normal and breath sounds normal. No respiratory distress. No stridor. He has no wheezes. He has no rales. ABD: The abdomen is soft. There is no tenderness. There is no rebound, no guarding. MUSC/SKEL: Pelvis stable. LYMPH: No cervical adenopathy. NEURO: He is alert with a masked face. Sensation within normal limits. Course Course 833: The patient was evaluated in room B11. A complete history and physical exam was performed Cardiac monitoring: An order was placed for continuous cardiac monitoring. The monitor shows a rate of 90 with sinus rhythm interpreted by mt 1010: Vital signs stable. Patient's lactic acid was mildly elevated 2.2. Patient's blood pressure is stable. Not thought to be in severe sepsis. Will hold off on 30 cc/kg normal saline bolus at this time. Patient was COVID- positive. Chest x-ray viewed by me was negative however radiology reads a possible pneumonia versus atelectasis. Procalcitonin is mildly elevated. Given the radiology read and mildly elevated procalcitonin level, patient will be treated with antibiotics for any superimposed bacterial pneumonia. Zosyn and vancomycin ordered for patient. Patient be admitted to the [facility] team. Administered Medications Sodium Chloride (Nss) 500 mls @ 125 mls/hr IV .Q4H SOY Stop: 07/20/24 13:29 Last Admin: 07/20/24 09:45 Dose: 125 mls/hr Documented By: JAVI Discontinued Medications Sodium Chloride (Nss) 500 mls @ 999 mls/hr IV .Q31M ONE Stop: 07/20/24 09:58 Last Infusion: 07/20/24 11:16 Dose: Infused Documented By: Admin: 07/20/24 10:21 Dose: 999 mls/hr Documented By: JAVI Piperacillin Sod/Tazobactam Sod (Zosyn) 4.5 gm in 120 mls @ 240 mls/hr IV NOW ONE Stop: 07/20/24 10:37 Last Infusion: 07/20/24 11:16 Dose: Infused Documented By: Admin: 07/20/24 10:19 Dose: 240 mls/hr Documented By: JAVI Vancomycin HCl 1,500 mg/ (Sodium Chloride) 530 mls @ 200 mls/hr IV NOW ONE Stop: 07/20/24 12:46 Last Admin: 07/20/24 11:11 Dose: 200 mls/hr Documented By: JAVI Medical Decision Making Laboratory Data Attestation: I reviewed the patient's lab results. 07/20/24 08:20 07/20/24 08:20 Lab Results 07/20/24 07/20/24 07/20/24 Range/Units 08:20 08:50 08:59 WBC 8.26 (4.8-10.8) K/ul RBC 4.79 (4.70-6.10) M/uL Hgb 15.2 (14.0-18.0) g/dl Hct 45.3 (42.0-52.0) % MCV 94.6 (80.0-100.0) fL MCH 31.7 (25.0-34.0) pg MCHC 33.6 (32.0-36.0) g/dL RDW Std Deviation 44.0 (36.4-46.3) fL RDW Coeff of Maria Isabel 12.6 (11.5-14.5) % Plt Count 179 (130-400) K/uL MPV 10.9 (9.4-12.4) fL Immature Gran % (Auto) 0.4 % Neut % (Auto) 91.0 % Lymph % (Auto) 2.7 % [place] % (Auto) 5.6 % Eos % (Auto) 0.1 % Baso % (Auto) 0.2 % Neut # (Auto) 7.52 H (1.40-6.50) K/uL Lymph # (Auto) 0.22 L (1.20-3.40) K/uL [place] # (Auto) 0.46 (0.11-0.59) K/uL Eos # (Auto) 0.01 (0.00-0.50) K/uL Baso # (Auto) 0.02 (0.00-0.20) K/uL Immature Gran # (Auto) 0.03 (0.01-0.20) K/uL PT 11.7 (9.0-12.0) Seconds INR 1.1 (0.9-1.1) APTT 27 (21-31) Seconds PTT Ratio 1.0 VBG pH 7.40 (7.36-7.41) VBG pCO2 45 (38-50) mmHg VBG pO2 28 mmHg VBG HCO3 28 mmol/L VBG O2 Saturation < 60.0 % VBG Base Excess 2.5 mEq/L Sodium 143 (136-145) mmol/L Potassium 4.1 (3.5-5.1) mmol/L Chloride 107 (98-107) mmol/L Carbon Dioxide 28 (21-32) mmol/L Anion Gap 8 (3-11) BUN 33 H (6-23) mg/dl Creatinine 1.04 (0.6-1.4) mg/dl Est Cr Clr Drug Dosing 62.4 ml/min eGFR 74.42 BUN/Creatinine Ratio 31.7 H (10-20) Glucose 107 H (70-99(Fasting)) mg/dl Lactate 2.2 H* (0.4-2.0) mmol/L Calcium 8.8 (8.6-10.3) mg/dl Magnesium 2.0 (1.7-2.4) mg/dl Total Bilirubin 1.0 (0.2-1.0) mg/dl Direct Bilirubin 0.1 (0-0.2) mg/dl AST 12 L (13-39) U/L ALT 12 (7-52) U/L Alkaline Phosphatase 66 (34-104) U/L Troponin I High Sens 5.0 (0-20) pg/ml Total Protein 7.4 (6.0-8.3) gm/dl Albumin 4.2 (3.4-5.0) gm/dl Procalcitonin 1.08 H (0-0.5) ng/ml Urine Color Urine Appearance (Clear) Urine pH (4.5-7.5) Ur Specific [place] (1.000-1.030) Urine Protein (Negative) Urine Glucose (UA) (Negative) Urine Ketones (Negative) Urine Blood (Negative) Urine Nitrite (Negative) Urine Bilirubin (Negative) Urine Urobilinogen (Negative) Ur Leukocyte Esterase (Negative) Urine WBC (Auto) (0-5) /hpf Urine RBC (Auto) (0-2) /hpf U Hyaline Cast (Auto) (0-2) /lpf U Epithel Cells (Auto) (0-2) /hpf Urine Bacteria (Auto) (None Seen) SARS-CoV-2 (PCR) POSITIVE A (Negative) Influenza Type A (PCR) Negative (Neg) Influenza Type B (PCR) Negative (Neg) RSV (RT-PCR) Negative (Neg) 07/20/24 Range/Units 09:00 WBC (4.8-10.8) K/ul RBC (4.70-6.10) M/uL Hgb (14.0-18.0) g/dl Hct (42.0-52.0) % MCV (80.0-100.0) fL MCH (25.0-34.0) pg MCHC (32.0-36.0) g/dL RDW Std Deviation (36.4-46.3) fL RDW Coeff of Maria Isabel (11.5-14.5) % Plt Count (130-400) K/uL MPV (9.4-12.4) fL Immature Gran % (Auto) % Neut % (Auto) % Lymph % (Auto) % [place] % (Auto) % Eos % (Auto) % Baso % (Auto) % Neut # (Auto) (1.40-6.50) K/uL Lymph # (Auto) (1.20-3.40) K/uL [place] # (Auto) (0.11-0.59) K/uL Eos # (Auto) (0.00-0.50) K/uL Baso # (Auto) (0.00-0.20) K/uL Immature Gran # (Auto) (0.01-0.20) K/uL PT (9.0-12.0) Seconds INR (0.9-1.1) APTT (21-31) Seconds PTT Ratio VBG pH (7.36-7.41) VBG pCO2 (38-50) mmHg VBG pO2 mmHg VBG HCO3 mmol/L VBG O2 Saturation % VBG Base Excess mEq/L Sodium (136-145) mmol/L Potassium (3.5-5.1) mmol/L Chloride (98-107) mmol/L Carbon Dioxide (21-32) mmol/L Anion Gap (3-11) BUN (6-23) mg/dl Creatinine (0.6-1.4) mg/dl Est Cr Clr Drug Dosing ml/min eGFR BUN/Creatinine Ratio (10-20) Glucose (70-99(Fasting)) mg/dl Lactate (0.4-2.0) mmol/L Calcium (8.6-10.3) mg/dl Magnesium (1.7-2.4) mg/dl Total Bilirubin (0.2-1.0) mg/dl Direct Bilirubin (0-0.2) mg/dl AST (13-39) U/L ALT (7-52) U/L Alkaline Phosphatase (34-104) U/L Troponin I High Sens (0-20) pg/ml Total Protein (6.0-8.3) gm/dl Albumin (3.4-5.0) gm/dl Procalcitonin (0-0.5) ng/ml Urine Color Yellow Urine Appearance Clear (Clear) Urine pH 5.0 (4.5-7.5) Ur Specific [place] 1.033 H (1.000-1.030) Urine Protein Trace H (Negative) Urine Glucose (UA) Negative (Negative) Urine Ketones 1+ H (Negative) Urine Blood Negative (Negative) Urine Nitrite Negative (Negative) Urine Bilirubin Negative (Negative) Urine Urobilinogen Negative (Negative) Ur Leukocyte Esterase Negative (Negative) Urine WBC (Auto) 0-5 (0-5) /hpf Urine RBC (Auto) 0-2 (0-2) /hpf U Hyaline Cast (Auto) 3-5 H (0-2) /lpf U Epithel Cells (Auto) 0-2 (0-2) /hpf Urine Bacteria (Auto) None Seen (None Seen) SARS-CoV-2 (PCR) (Negative) Influenza Type A (PCR) (Neg) Influenza Type B (PCR) (Neg) RSV (RT-PCR) (Neg) Imaging Data Attestation: I personally reviewed and interpreted this imaging study as follows: My Impression: Chest x-ray negative. Airway clear. No pneumothorax. No consolidation. No cardiomegaly or cephalization.. No free air under the diaphragm. No fractures of the skeletal structures. Radiologist's Impression: Chest X-Ray 07/20/24 08:43 XR chest 1V portable CLINICAL HISTORY: Sepsis TECHNIQUE: Single frontal radiograph of the chest was obtained. Comparison: Comparison is made to chest radiograph 05/22/2023 FINDINGS: No lines and tubes are seen. The cardiomediastinal silhouette is normal. Faint bibasilar airspace opacities are seen. No evidence of pleural effusion or pneumothorax. IMPRESSION: Bilateral lower lung predominant airspace opacities which may represent atelectasis, pneumonia, and/or aspiration. ACT 112: Negative or not required by law. Electronically signed by: Foster Miguel M.D. 07/20/2024 9:[address] 07/20/24 08:44 CT head/brain wo con CLINICAL HISTORY: ams Technique: Contiguous axial CT images of the head were acquired from the base of the skull to the vertex without intravenous contrast administration. Images were viewed in brain, subdural and bone windows. Automated dose lowering techniques and/or adjustment according to patient size were utilized for this exam. Comparison: Comparison is made to CT head 01/19/2024 Findings: Areas of decreased attenuation are present in the periventricular and subcortical white matter bilaterally consistent with small vessel ischemic disease. Generalized cerebral atrophy with commensurate enlargement of the ventricles, sulci, and cisterns is also present. There is no acute intracranial hemorrhage or evidence of acute territorial infarction. No shift of the midline structures, mass effect, or extra-axial abnormalities are shown. Atherosclerotic calcifications are present in the intracranial segments of the internal carotid arteries. Focal encephalomalacia in the right internal capsule is unchanged. Imaged portions of the paranasal sinuses and mastoid air cells are clear. The orbits appear normal. There are no acute fractures of the calvaria or scalp swelling. Impression: No acute intracranial hemorrhage, no evidence of acute territorial infarction or other acute intracranial disease process. ACT 112: Negative or not required by law. Electronically signed by: Foster Miguel M.D. 07/20/2024 9:41 AM ECG Data Attestation: I personally reviewed and interpreted this ECG as follows: Rate (beats per minute): 88 Rhythm: + normal sinus ECG Intervals/blocks: + Normal MD and + Normal QT-c ECG ST segments: + Normal ST segments ECG Findings: + PVCs Additional Comments: QRS 78 MDM Narrative 0834: The patient was evaluated in room B11. A complete history and physical exam was performed Cardiac monitoring: An order was placed for continuous cardiac monitoring. The monitor shows a rate of 90 with sinus rhythm interpreted by me 1010: Vital signs stable. Patient's lactic acid was mildly elevated 2.2. Patient's blood pressure is stable. Not thought to be in severe sepsis. Will hold off on 30 cc/kg normal saline bolus at this time. Patient was COVID- positive. Chest x-ray viewed by me was negative however radiology reads a possible pneumonia versus atelectasis. Procalcitonin is mildly elevated. Given the radiology read and mildly elevated procalcitonin level, patient will be treated with antibiotics for any superimposed bacterial pneumonia. Zosyn and vancomycin ordered for patient. Patient be admitted to the [facility] team. Impression & Plan COVID-19, Pneumonia Discharge Plan Visit Data Chief Complaint: Confusion Stated Complaint: AMS ED Provider: Venkatesh Whiting Discharge Problem: COVID-19, Pneumonia Patient Disposition: Admitted As Inpatient Discharge Problem: Pneumonia Qualifiers: Pneumonia type: due to unspecified organism Laterality: unspecified laterality Lung location: unspecified part of lung Qualified Code(s): J18.9 - Pneumonia, unspecified organism
--- OUTSIDE RECORDS SUMMARY | 2024-07-20 09:20 | External Medical Summary | Summary of Care ---
Author Name Unknown Organization [facility] Address [address] [place] [address] Phone [phone] Care Team Providers Care Sock Examiner Name Role Phone Ruth Lucia MD Primary Care Provider Reason for Referral * Evaluate & Treat - Unlimited Visits (Within 30 days (routine)) - Authorized Specialty Diagnoses / Procedures Referred By Contac t Referred To Contact Neurology Diagnoses Parkinson's disease, unspecified whether dyskinesia present, unspecified whether manifestations fluctuate ([facility]) Ruth Lucia MD [address] [place] [place] [address] Referral ID Status Reason Start Date Expiration Date Visits Requested Visits Authorized [id number] Authorized Specialty Services Required 02/03/[phone] Question Answer Referral Priority Within 30 days (routine) Where should this appointment be scheduled? [facility] This patient already has care established with Neurology. Do not place this order. Please use Ask A Doc to expedite care. Acknowledge Is this referral being placed for insurance purposes ONLY No, patient needs appointment [facility] NEUROLOGY REFERRAL QUESTIONS Movement - parkinsons Comments Kathy patient, last seen 2021. I was asked to place a referral. Encounter Details Date Type Department Care Team (Late st Contact Info) Description 01/27/2024 Telephone Family Practice [facility] [address] [place] [address] Ruth Lucia MD [address] [place] [address] Allergies No known active allergiesdocumented as of this encounter (statuses as of 03/10/2024) Medications Medication Sig Dispensed Refills Start Date End Date Status Carbidopa-Levodopa 25-100 MG Oral Tablet Take 1 Tablet by mouth in the morning and 1 Tablet at noon and 1 Tablet in the evening and 1 Tablet before bedtime. Active B-12 1000 MCG Oral TabletIndications:B12 deficiency Take 1,000 mcg by mouth in the morning. 30 Tablet 11 03/28/2023 Active DULoxetine HCl 30 MG Oral Capsule Delayed Release Particles (Cymbalta)Indications :Lumbar degenerative disc disease,Episode of recurrent major depressive disorder, unspecified depression episode severity (HCC) Take 1 Capsule by mouth in the morning. 30 Capsule 03/28/2023 Active Meclizine HCl 25 MG Oral Tablet ChewableIndications:V ertigo Take 1 Tablet by mouth 2 times a day as needed for Dizziness. 30 Tablet 1 03/28/2023 Active Pravastatin Sodium 20 MG Oral Tablet (Pravachol)Indication s:Mixed dyslipidemia,PVC (premature ventricular contraction) Take 1 Tablet by mouth every evening. 30 Tablet 03/28/2023 Active Tamsulosin HCl 0.4 MG Oral Capsule (Flomax)Indications:B PH with obstruction/lower urinary tract symptoms Take 1 Capsule by mouth in the morning and 1 Capsule in the evening. 60 Capsule 03/28/2023 Active Aspirin 81 MG Oral Tablet Delayed ReleaseIndications:Pa lpitations Take 1 Tablet by mouth in the morning. 30 Tablet 03/28/2023 Active Polyethylene Glycol 3350 17 GM Oral Packet (Miralax)Indications: Constipation Take 1 Packet by mouth in the morning. 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 Parkinson's disease 01/14/2019 Lumbar degenerative disc disease 01/14/2019 Symptomatic PVCs 03/12/2016 Irritable bowel syndrome with constipation 02/12 Dyslipidemia documented as of this encounter (statuses as of 03/10/2024) Resolved Problems Problem Noted Date Diagnosed Date Resolved Date Prediabetes 08/29/2020 05/04/2021 Overview: Per Prediabetes protocol Episode of recurrent major d epressive disorder 10/27/2018 05/19/2023 Impaired fasting glucose 03/12/2016 Dizziness 03/12/2016 05/19/2023 Palpitations 03/12/2016 05/19/2023 Impacted cerumen 02/12/2014 10/05/2014 Need for prophylactic vaccin ation against Streptococcus pneumoniae (pneumococcus) 08/19/2013 05/19/2023 Screening for prostate cancer 07/24/2012 08/19/2013 Palpitations 09/20/2011 08/19/2013 Spasm of muscle 05/15/2011 08/19/2013 Plantar fibromatosis 04/23/2011 014 Urinary frequency 03/28/2010 08/19/2013 Routine medical exam 03/28/2010 023 Special screening for malign ant neoplasms, colon 03/28/2010 05/19/2023 Impaired fasting glucose Stress reaction, emotional 0 08/19/2013 Sarcoidosis of lung 05/19/20 23 Overview: ? dx 30 yrs ago but recent cxr normal Stress reaction, emotional 0 03/28/2010 Overview: hx of depression/ anxiety prior on meds documented as of this encounter (statuses as of 03/10/2024) Immunizations Name Administration Dates Next Due COVID-19 mRNA, LNP-s, No Pre serve, 2-Dose Series ([employer]) 06/08/2021,11/09/2020,10/19/2020 Covid-19, Mrna, Lnp-s, Pf, B ivalent, 30 Mcg, IM, 12 yrs and above ([employer]) 05/17/2022 DTaP Dipth/Tet/Acell Pertussis (Infanrix), Peds 07/14/2009 PPD 03/28/2023 Pneumococcal Conjugate Vacc, 13 Valent (Prevnar) 03/06/2016 Pneumococcal Polysaccharide PPV23 (Pneumovax) 08/19/2013 Season Influenza, Quad, PF, Adjuvanted, 65+ Yrs, IM (FLUAD) 05/05/2020 Seasonal Influenza, PF, 6 M & above, IM , (FluLaval or Fluzone) 04/04/2021,06/19/2018,07/23/2017 Seasonal Influenza, Quadriva lent Hd (Fluzone [...] Date Smoking Tobacco: Former Cigarettes 1 12 0 07/22/1962 - 07/22/1974 Smokeless Tobacco: Never Alcohol Use Standard Drinks/Week Comments No 0 (1 standard drink = 0.6 oz pur e alcohol) PHQ-2 Answer Date Recorded PHQ Adult Total Score 0 06/17/2023 Hunger Vital Sign Answer Date Recorded Within the past 12 months, y ou worried that your food would run out before you got the money to buy more. Never true 06/14/20 23 Within the past 12 months, t he food you bought just didn't last and you didn't have money to get more. Never true 06/14/2023 Childcare Answer Date Recorded Do you feel overwhelmed with taking care of a child, family member or friend? No 06/14/2023 Does your family need help f inding childcare? (Household - for ages 0-17 years) Not on file 06/14/2023 Clothing Answer Date Recorded Have you been unable to get clothing when it was really needed? No 06/14/2023 Is your family able to get c lothes or diapers when needed? (Household - for ages 0-17 years) Not on file 06/14/2023 Personal Safety Answer Date Recorded Do you feel unsafe or have concerns for your saf ety? No 06/14/2023 Do you have concerns for you r family's safety? (Household - for ages 0-17 years) Not on file 06/14/2023 Utilities Answer Date Recorded Do you have trouble paying y our heating, water, or electric bill? No 06/14/2023 Is your family able to pay t he heat, water, or electric bill? (Household - for ages 0-17 years) Not on file 06/14/2023 Does your family have access to good internet? (Household - for ages 0-17 years) Not on file 06/14/2023 Employment Status Answer Date Recorded Are you unemployed or without regular income? No 06/14/2023 Does the [facility] have a [facility] source [facility] income? (Household - for ages 0-17 years) Not on file 06/14/2023 Social Connections Answer Date Recorded How often do you feel lonely or isolated from th ose around you? Never 06/14/2023 Financial Resource Strain Answer Date R ecorded Do you have any trouble payi ng for your medications, or do you think you might in the future? No 06/14/2023 Does your family have troubl e paying for medicine? (Household - for ages 0-17 years) Not on file 06/14/2023 Transportation Needs Answer Date Record ed READ ONLY Do you have troubl e getting a ride to medical visits or work? Never True 06/14/2023 Does your family have a hard time getting a ride to doctors visits? (Household - for ages 0-17 years) Not on file 06/14/2023 Has lack of transportation k ept you from medical appointments, meetings, work, or from getting things needed for daily living? Check all that apply. (Adult - for ages 18 years and over) Not on file 06/14/2023 Do you (or your family) have trouble finding or paying for a ride (transportation)? (Household - for ages 0-17 years) Not on file 06/14/2023 Housing Stability Answer Date Recorded Do you currently live in a s helter or have no steady place to sleep at night? No 06/14/2023 READ ONLY Do you think you a re at risk of becoming homeless? No 06/14/2023 Does your family worry about paying for your home or becoming homeless? (Household - for ages 0-17 years) Not on file 1 08/14/2022 Are you homeless or worried that you might be in the future? (Adult - for ages 18 years and over) Not on file 3 Are you (or your family) nova eless or worried that you might be in the future? (Household - for ages 0-17 years) Not on file Food Insecurity Answer Date Recorded Do you need food for this week? No 06/14/2023 Are you able to get enough f ood for your family? (Household - for ages 0-17 years) Not on file 06/14/2023 Does your family need food t his week? (Household - for ages 0-17 years) Not on file 06/14/2023 Do you always have enough fo od for your family? (Household - for ages 0-17 years) Not on file 06/14/2023 Sex and Gender Information Value Date Recorded Sex Assigned at Male 05/16/2020 9:28 AM EDT Gender Identity Male 05/16/2020 9:28 AM EDT Sexual Orientation Straight 05/16/2020 9: 28 AM EDT Job Start Date Occupation Industry Not on file Not on file Not on file documented as of this encounter Miscellaneous Notes * Telephone Encounter - Ruth Lucia MD - 02/03/2024 12:42 PM EDT Referral placed * Telephone Encounter - Isa Obando OSA - 02/03/2024 10:[address] a new referral * Telephone Encounter - Ruth Lucia MD - 01/27/2024 8:33 PM EDT Patient of Dr Chavez for parkinsons, last seen 2021. Needs to get back in for f/u. Having more issues with balance/falling. documented in this encounter Plan of Treatment Upcoming Encounters Date Type Department Care Team (Late st Contact Info) Description 07/29/2024 12:20 PM EST Office Visit Family Practice [facility] [address] [phone] Ruth Lucia MD [address] [place] [address] 09/09/2024 11:00 AM EST Office Visit Urology, [facility] [address] [place] [address] Noé Pitts MD [address] [place] [address] Scheduled Referrals Name Type Priority Associated Diagnoses Orde r Schedule ADULT NEUROLOGY REFERRAL OP Referral Within 30 days (routine) Parkinson's disease, unspecified whether dyskinesia present, unspecified whether manifestations fluctuate (HCC) Ordered: 02/03/2024 Health Maintenance Due Date Last Done Comments Adult Wellness Visit 03/06/2017 03/06/2016 Colonoscopy 08/03/2023 08/03/2022, 07/22, 03/08/2020, Additional history exists COVID-19 Vaccine (2022- season) 2023 07/08/2023, 05/17/2022, 06/08/2021, Additional history exists DTaP,Tdap,and Td Vaccines (3 - Td or Tdap) 02/13/2024 02/12/2014, 07/14/2009 Influenza Vaccine (FLU shot) (#1) 2024 05/17/2022, 04/04/2021, 05/05/2020, Additional history exists Depression Screening 06/17/2024 06/17/2023 Pneumococcal Vaccine: 65+ Years Completed 03/06/2016, 08/19/2013 Zoster Vaccines Completed 02/08/2020, 07/22, 02/12/2014 RETIRED - COLONOSCOPY-ANNUAL AGES 18-100 Discontinued 08/03/2022, 08/03/2022, 03/08/2020, Additional history exists HPV (Gardasil) Vaccine Aged Out No lo nger eligible based on patient's age to complete this topic Hepatitis B Vaccine Aged Out No longe r eligible based on patient's age to complete this topic MENINGOCOCCAL (MENACTRA/MENVEO) Aged Out No longer eligible based on patient's age to complete this topic documented as of this encounter Medical Devices Implanted Type Area Wheel Setter Device Identifier Shelf Expiration Date Model / Serial / Lot Lens Intraoc 20.0 - [id number] - [id number] Implanted:Qty: 1 on 09/26/2021 by Joni Moreno MD at OR [facility] Left: Eye [employer] 04/20/2026 [id number] / [id number] / [id number] Lens Intraoc 20.0 - [id number] - [id number] Implanted:Qty: 1 on 10/10/2021 by Joni Moreno MD at OR [facility] Right: Eye [employer] 05/21/2026 [id number] / [id number] / [id number] Sureclip 16mm 235cm - [id number] Implanted:Qty: 2 on 08/03/2022 by Enid John MD at ENDOSCOPY [facility] Colon MICRO TECH ENDOSCOPY 09/28/2024 [id number] / / documented as of this encounter Visit Diagnoses Diagnosis Parkinson's disease, unspecified whether dyskinesia present, unspecified whether manifestations fluctuate (HCC)- Primary documented in this encounter Advance Directives Documents on File Type Date Recorded Patient Grants Director Expl anation POLST 03/27/2023 [place] [facility] Care Teams Sock Examiner Relationship Specialty Start Date End Date Ruth Lucia MD [address] [id number] PCP - General Internal Medicine 01/27/24 documented as of this encounter
--- OUTSIDE RECORDS SUMMARY | 2024-07-20 09:20 | External Medical Summary | Summary of Care ---
Author Name Unknown Organization [facility] Address [address] [place] [address] Phone [phone] Care Team Providers Care Ball Warper Tender Name Role Phone Ruth Lucia MD Primary Care Provider Encounter Details Date Type Department Care Team (Late st Contact Info) Description 01/19/2024 Result Scan Unspecified Department <No scans attached> Allergies No known active allergiesdocumented as of this encounter (statuses as of 02/11/2024) Medications Medication Sig Dispensed Refills Start Date [...] day as needed for Dizziness. 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 Parkinson's disease 01/14/2019 Lumbar degenerative disc disease 01/14/2019 Symptomatic PVCs 03/12/2016 Irritable bowel syndrome with constipation 02/12 Dyslipidemia documented as of this encounter (statuses as of 02/11/2024) Resolved Problems Problem Noted Date Diagnosed Date [...] as of this encounter (statuses as of 02/11/2024) Immunizations Name Administration Dates Next Due COVID-19 mRNA, LNP-s, No Pre serve, 2-Dose Series ([employer]) 06/08/2021,11/09/2020,10/19/2020 Covid-19, Mrna, Lnp-s, Pf, B ivalent, [...] No 06/14/2023 Does the household have a [facility]? (Household - for [...] 18 years and over) Not on file Are you (or your family) nova eless [...] 12:20 PM EST Office Visit Family Practice [facility] [address] [phone] Ruth Lucia MD [address] [place] [address] 09/09/2024 11:00 AM EST Office Visit Urology, [facility] [address] [address] Noé Pitts MD [address] [place] [address] Health Maintenance Due Date Last Done Comments Colonoscopy 08/03/2023 08/03/2022, 07/22, 03/08/2020, Additional history [...] this encounter Medical Devices Implanted Type Area Biometrics Analyst Device Identifier Shelf Expiration Date Model / Serial / Lot Lens Intraoc 20.0 - [id number] - [id number] Implanted:Qty: 1 on 09/26/2021 by Joni Moreno MD at OR [facility] Left: Eye [employer] 04/20/2026 [id number] / [id number] / [id number] Lens Intraoc 20.0 - [id number] - [id number] Implanted:Qty: 1 on 10/10/2021 by Joni Moreno MD at OR [facility] Right: Eye [employer] 05/21/2026 [id number] / [id number] / [id number] Sureclip 16mm 235cm - [id number] Implanted:Qty: 2 on 08/03/2022 by Enid John MD at ENDOSCOPY [facility] Colon MICRO TECH ENDOSCOPY 09/28/2024 [id number] / / documented as of this encounter Procedures Procedure Name Priority Date/Time Associated Diagnosis Comments EKG SCANNED RESULT 01/19/2024 documented in this encounter Results * EKG SCANNED RESULT (01/19/2024) 01/19/2024 No Physician Data Unknown EKG documented in this encounter Advance Directives Documents on File Type Date Recorded Patient Branch Lead Expl anation POLST 03/27/2023 [place] OR [facility] Care Teams Ball Warper Tender Relationship Specialty Start Date End Date Ruth Lucia MD [address] [facility] [address] [place] [id number] PCP - General Internal Medicine 01/27/24 documented as of this encounter
--- OUTSIDE RECORDS SUMMARY | 2024-07-20 09:20 | External Medical Summary | Summary of Care ---
Author Name Unknown Organization [facility] Address [address] [place] [address] Phone [phone] Care Team Providers Care Benefits Consultant Name Role Phone Ruth Lucia MD Primary Care Provider Reason for Referral * Evaluate & Treat - Unlimited Visits (Within 30 days (routine)) - Authorized Specialty Diagnoses / Procedures Referred By Contac t Referred To Contact Physical Therapy / Physical Medicine And Rehab Diagnoses Parkinson's disease, unspecified whether dyskinesia present, unspecified whether manifestations fluctuate (HCC) Generalized weakness Darío Marshall CRNP [address] [place] [address] Phone: tel: fax: Referral ID Status Reason Start Date Expiration Date Visits Requested Visits Authorized [id number] Authorized Specialty Services Required 06/23/[phone] Question Answer Referral Priority Within 30 days (routine) Where should this appointment be scheduled? External Reason for Visit * Reason Onset Date Comments NEW PATIENT Worsening darvin sons symptoms, started getting worse 6-8 months ago. Lightheadedness, sleeping a lot, waking up feeling tired, very unbalanced. Lives at [facility]. Starts ing around noon according to [facility] Medication Administration 06/23/2024 Flu an d/or Pneumo Inj Encounter Details Date Type Department Care Team (Latest Contact Info) Description 06/23/2024 2:40 PM EST Office Visit Family [facility] [address] [facility] [address] Darío Marshall CRNP [address] [place] [address] Parkinson's disease, unspecified whether dyskinesia present, unspecified whether manifestations fluctuate (HCC)*; Muscle weakness (generalized); Elevated LDL cholesterol level; BPH with obstruction/lower urinary tract symptoms Allergies No known active allergiesdocumented as of this encounter (statuses as of 06/23/2024) Medications Carbidopa-Levodop a 25-100 MG Oral Tablet Take 1 Tablet by mouth in the morning and 1 Tablet at noon and 1 Tablet in the evening and 1 Tablet before bedtime. Active B-12 1000 MCG Oral TabletIndications :B12 deficiency Take 1,000 mcg by mouth in the morning. 30 Tablet 11 3 Active DULoxetine HCl 30 MG Oral Capsule Delayed Release Particles (Cymbalta)Indicat ions:Lumbar degenerative disc disease,Episode of recurrent major depressive disorder, unspecified depression episode severity (HCC) Take 1 Capsule by mouth in the morning. 30 Capsule 3 Active Meclizine HCl 25 MG Oral Tablet ChewableIndicatio ns:Vertigo Take 1 Tablet by mouth 2 times a day as needed for Dizziness. 30 Tablet 1 3 Active Pravastatin Sodium 20 MG Oral Tablet (Pravachol)Indica tions:Mixed dyslipidemia,PVC (premature ventricular contraction) Take 1 Tablet by mouth every evening. 30 Tablet 3 Active Tamsulosin HCl 0.4 MG Oral Capsule (Flomax)Indicatio ns:BPH with obstruction/lower urinary tract symptoms Take 1 Capsule by mouth in the morning and 1 Capsule in the evening. 60 Capsule 3 Active Aspirin 81 MG Oral Tablet Delayed ReleaseIndication s:Palpitations Take 1 Tablet by mouth in the morning. 30 Tablet 3 Active Polyethylene Glycol 3350 17 GM Oral Packet (Miralax)Indicati ons:Constipation Take 1 Packet by mouth in the morning. 30 Each 3 Active Midodrine HCl 2.5 MG Oral Tablet (Proamatine) Take 1 Tablet by mouth. 4 Active Midodrine HCl 5 MG Oral Tablet (Proamatine) Take 1 Tablet by mouth. 4 Active documented as of this encounter (statuses as of 06/23/2024) Active Problems Problem Noted Date Diagnosed Date B12 deficiency 01/27/2024 Elevated LDL cholesterol level 01/27/2024 History of multiple cerebrovascular accidents (C VAs) 05/19/2023 BPH with obstruction/lower urinary tract symptom s 08/21/2021 Parkinson's disease 01/14/2019 Lumbar degenerative disc disease 01/14/2019 Symptomatic PVCs 03/12/2016 Irritable bowel syndrome with constipation 02/12 Dyslipidemia documented as of this encounter (statuses as of 06/23/2024) Resolved Problems Problem Noted Date Diagnosed Date [...] 0 08/19/2013 Sarcoidosis of lung 05/19/20 23 Overview (03/28/2010): ? dx 30 yrs ago but recent cxr normal Stress reaction, emotional 0 03/28/2010 Overview (03/28/2010): hx of depression/ anxiety prior on meds documented as of this encounter (statuses as of 06/23/2024) Immunizations Name Administration Dates Next Due COVID-19 mRNA, LNP-s, No Pre serve, 2-Dose Series ([employer]) 06/08/2021,11/09/2020,10/19/2020 COVID-19, MRNA-LNP, PF, 50 M CG/0.5 mL, 12 YRS AND ABOVE, IM (MODERNA-Spikevax) 07/08/2023 Covid-19, Mrna, Lnp-s, Pf, B ivalent, 30 Mcg, IM, 12 yrs and above ([employer]) 05/17/2022 DTaP Dipth/Tet/Acell Pertussis (Infanrix), Peds 07/14/2009 PPD 03/28/2023 Pneumococcal Conjugate Vacc, 13 Valent (Prevnar) 03/06/2016 Pneumococcal Polysaccharide PPV23 (Pneumovax) 08/19/2013 Season Influenza, Quad, PF, Adjuvanted, 65+ Yrs, IM (FLUAD) 05/05/2020 Seasonal Influenza Vac., MDV , IM, 0.5 mL (Fluzone) 05/04/2014,05/25/2013,07/24/2012,04/23,05/01/2010 Seasonal Influenza, PF, 6 M & above, IM , (FluLaval or Fluzone) 04/04/2021,06/19/2018,07/23/2017 Seasonal Influenza, Quadriva lent Hd (Fluzone Hd) 05/17/2022 Seasonal Influenza, Quadriva lent, No Preserve, IM 06/28/2015 Seasonal Influenza, Trivalen t, Adjuvanted, 65+ YRS, PF, (Fluad) 08/04/2019 TDAP (age 10 and older)(Boostrix) 02/12/2014 [...] No 06/14/2023 Does the household have a re gular source of income? (Household - for ages [...] Assigned at Male 05/16/2020 9:28 AM EDT Legal Sex Male 6:48 AM EST Gender Identity Male 05/16/2020 9:28 AM EDT Sexual Orientation Straight 05/16/2020 9: 28 AM EDT Occupation Industry Job Start Date Job End Date Not on file Not on file Not on file Not on file documented as of this encounter Last Filed Vital Signs Vital Sign Reading Time Taken Comments Blood Pressure 102/60 06/23/2024 2:40 PM EST Pulse 84 06/23/2024 2:40 PM EST Temperature - - Respiratory Rate - - Oxygen Saturation 97% 06/23/2024 2:40 PM EST Inhaled Oxygen Concentration - - Weight 76.8 kg (169 lb 6.4 oz) 06/23/2024 2:40 P M EST Height - - Body Mass Index 26.75 01/27/2024 5:35 PM EDT documented in this encounter Progress Notes * Darío Marshall CRNP - 06/23/2024 2:52 PM EST Images from the original note were not included. Follow up Family Medicine Visit History of Present Illness Jacques Alicea is a very pleasant 74 year old male with PMH listed below presenting with worsening of parkinson's symptoms. Accompanied by son Cresencio. He has worsening of parkinsons symptoms, missed neurology appt in January. He is sleeping more and feeling tired. Was doing PT at [facility], but he stopped few months ago it because he didn't like PT. Balance has been worse since he stopped PT, and he is interested in restarting PT. Using rollaway walker to support. Taking all his medication given by nursing staff. Does not have a current medlist with him. Dr. Blair at [facility] has been prescribing his parkinson's med. Social History Socioeconomic History Marital status: Spouse name: Not on file Number of children: Not on file Years of education: Not on file Highest education level: Not on file Occupational History Comment: retired Tobacco Use Smoking status: Former Current packs/day: 0.00 Average packs/day: 1 pack/day for 12.0 years (12.0 ttl pk-yrs) Types: Cigarettes Start date: 07/22/1962 Quit date: 07/22/1974 Years since quittin.9 Smokeless tobacco: Never Vaping Use Vaping status: Never Used Substance and Sexual Activity Alcohol use: No Drug use: No Sexual activity: Never Comment: 3 children Other Topics Concern Not on file Social History Narrative Not on file Social Needs Financial Resource Strain: Low Risk (06/14/2023) Financial Resource Strain Do you have any trouble paying for your medications, or do you think you might in the future? (Adult - for ages 18 years and over): No Does your family have trouble paying for medicine? (Household - for ages 0-17 years): Not on file Food Insecurity: No Food Insecurity (06/14/2023) Food Insecurity Do you need food for this week? (Adult - for ages 18 years and over): No Are you able to get enough food for your family? (Household - for ages 0-17 years): Not on file Does your family need food this week? (Household - for ages 0-17 years): Not on file Do you always have enough food for your family? (Household - for ages 0-17 years): Not on file Transportation Needs: No Transportation Needs (06/14/2023) Transportation Needs Do you have trouble getting a ride to medical visits or work? (Adult - for ages 18 years and over):Never True Does your family have a hard time getting a ride to doctors visits? (Household - for ages 0-17 years): Not on file Has lack of transportation kept you from medical appointments, meetings, work, or from getting things needed for daily living? Check all that apply. (Adult - for ages 18 years and over): Not on file Do you (or your family) have trouble finding or paying for a ride (transportation)? (Household - for ages 0-17 years): Not on file Social Connections: Socially Integrated (06/14/2023) Social Connections How often do you feel lonely or isolated from those around you? (Adult - for ages 18 years and over): Never Housing Stability: Low Risk (06/14/2023) Housing Stability Do you currently live in a long-term or have no steady place to sleep at night? (Adult - for ages 18 years and over): No Do you think you are at risk of becoming homeless? (Adult - for ages 18 years and over): No Does your family worry about paying for your home or becoming homeless? (Household - for ages 0-17 years): Not on file Are you homeless or worried that you might be in the future? (Adult - for ages 18 years and over): Not on file Are you (or your family) homeless or worried that you might be in the future? (Household - for ages0-17 years): Not on file PMH: Past Medical History: Diagnosis Date Benign neoplasm of colon 04/27/2010 2 polyps tubulovillous adenomas--repeat in 6 month Benign neoplasm of colon 11/20/2010 diverticulosis, post polypectomy scar found at tatoo site in sigmoid and ascending colon, polyps x 3--adenomatous tissue --repeat in one yr History of multiple cerebrovascular accidents (CVAs) 05/19/2023 Impaired fasting glucose Mixed dyslipidemia Sarcoidosis of [...] by Dale Whitlock MD at ENDOSCOPY [facility] COLONOSCOPY, DIAGNOSTIC (RECTUM) 12/28/2015 adenomatous polyp, diverticulosis, repeat 3 yrs/COLONOSCOPY FLEXIBLE PROXIMAL DIAGNOSTIC performed by Enid John MD at ENDOSCOPY [facility] COLONOSCOPY, DIAGNOSTIC (RECTUM) 03/08/2020 adenomatous polyps, diverticulosis, repeat 1 yr / COLONOSCOPY FLEXIBLE PROXIMAL DIAGNOSTIC performed by Enid John MD at ENDOSCOPY [facility] COLONOSCOPY, DIAGNOSTIC (RECTUM) 08/03/2022 benign adenomatous polyps, repeat 6 mo / COLONOSCOPY FLEXIBLE PROXIMAL DIAGNOSTIC performed by Enid John MD at ENDOSCOPY [facility] COLONOSCOPY/REMOVE LESION 04/27/2010 2 polyps tubulovillous adenomas--repeat in 6 months INFORMATION right foot surgery for plantar fascitis REMOVE CATARACT, INSERT LENS PROSTH Left 09/26/2021 LEFT EXTRACAPSULAR CATARACT REMOVAL WITH INTRAOCULAR LENS performed by Joni Moreno MD at [facility] REMOVE CATARACT, INSERT LENS PROSTH Right 10/10/2021 Right EXTRACAPSULAR CATARACT REMOVAL WITH INTRAOCULAR LENS performed by Joni Moreno MD at [facility] REMOVE TONSILS & ADENOIDS, UNDER 12 Current Outpatient Medications Medication Sig Dispense Refill Midodrine HCl 2.5 MG Oral Tablet (Proamatine) Take 1 Tablet by mouth. Midodrine HCl 5 MG Oral Tablet (Proamatine) Take 1 Tablet by mouth. Aspirin 81 MG Oral Tablet Delayed Release Take 1 Tablet by mouth in the morning. 30 Tablet 11 B-12 1000 MCG Oral Tablet Take 1,000 mcg by mouth in the morning. 30 Tablet 11 DULoxetine HCl 30 MG Oral Capsule Delayed Release Particles (Cymbalta) Take 1 Capsule by mouth in the morning. 30 Capsule 11 Meclizine HCl 25 MG Oral Tablet Chewable Take 1 Tablet by mouth 2 times a day as needed for Dizziness. 30 Tablet 1 Polyethylene Glycol 3350 17 GM Oral Packet (Miralax) Take 1 Packet by mouth in the morning. 30 Each11 Pravastatin Sodium 20 MG Oral Tablet (Pravachol) Take 1 Tablet by mouth every evening. 30 Tablet 11 Tamsulosin HCl 0.4 MG Oral Capsule (Flomax) Take 1 Capsule by mouth in the morning and 1 Capsule inthe evening. 60 Capsule 11 Carbidopa-Levodopa 25-100 MG Oral Tablet Take 1 Tablet by mouth in the morning and 1 Tablet at noonand 1 Tablet in the evening and 1 Tablet before bedtime. No current facility-administered medications for this visit. Review of patient's allergies indicates: No Known Allergies Most Recent Immunizations Administered Date(s) Administered COVID-19 mRNA, LNP-s, No Preserve, 2-Dose Series ([employer]) 06/08/2021 COVID-19, MRNA-LNP, PF, 50 MCG/0.5 mL, 12 YRS AND ABOVE, IM (MODERNA-Spikevax) 07/08/2023 Covid-19, Mrna, Lnp-s, Pf, Bivalent, 30 Mcg, IM, 12 yrs and above ([employer]) 05/17/2022 DTaP - Dipth/Tet/Acell Pertussis (Infanrix), Peds 07/14/2009 PPD 03/28/2023 Pneumococcal Conjugate Vacc, 13 Valent (Prevnar) 03/06/2016 Pneumococcal Polysaccharide PPV23 (Pneumovax) 08/19/2013 Season Influenza, Quad, PF, Adjuvanted, 65+ Yrs, IM (FLUAD) 05/05/2020 Seasonal Influenza Vac., MDV, IM, 0.5 mL (Fluzone) 05/04/2014 Seasonal Influenza, PF, 6 M & above, IM , (FluLaval or Fluzone) 04/04/2021 Seasonal Influenza, Quadrivalent Hd (Fluzone Hd) 05/17/2022 Seasonal Influenza, Quadrivalent, No Preserve, IM 06/28/2015 Seasonal Influenza, Trivalent, Adjuvanted, 65+ YRS, PF, (Fluad) 08/04/2019 TDAP (age 10 and older)(Boostrix) 02/12/2014 Varicella Zoster Vaccine (Adult) 02/12/2014 Zoster Vaccine Recombinant (Shingrix) 02/08/2020 Review of Systems: Physical Exam BP 102/60 (BP Site: Left Arm, BP Position: Sitting) | Pulse 84 | Wt 169 lb 6.4 oz (76.8 kg) | SpO2 97% | BMI 26.75 kg/m | BSA 1.9 m Physical Exam Constitutional: Appearance: Normal appearance. He is not toxic-appearing. HENT: Head: Normocephalic. Eyes: Extraocular Movements: Extraocular movements intact. Conjunctiva/sclera: Conjunctivae normal. Pupils: Pupils are equal, round, and reactive to light. Cardiovascular: Rate and Rhythm: Normal rate and regular rhythm. Pulmonary: Effort: Pulmonary effort is normal. Breath sounds: Normal breath sounds. Musculoskeletal: General: No swelling. Cervical back: Neck supple. Skin: General: Skin is warm. Neurological: Mental Status: He is alert and oriented to person, place, and time. Motor: Weakness present. Comments: Resting tremors, bilateral upper/lower extremity strength 4/5. Psychiatric: Mood and Affect: Mood normal. Assessment and Plan 1. Parkinson's disease, unspecified whether dyskinesia present, unspecified whether manifestations fluctuate (HCC) Restart PT, reschedule appt with neurology Recommend to bring updated medlist on next pcp appt - PHYSICAL THERAPY REFERRAL OP 2. Muscle weakness (generalized) Related to above - PHYSICAL THERAPY REFERRAL OP 3. Elevated LDL cholesterol level Update lab 4. BPH with obstruction/lower urinary tract symptoms Flomax F/u urology Wrap-Up I have advised the patient to call our office with any worsening or new symptoms. I spent a total of 20-29 minutes (exact time 25 mins) on the date of service in preparation, delivery, and documentation of the care provided to Jacques Alicea excluding any time spent in the performance of separately billed services. Darío Marshall, [facility], [facility] documented in this encounter Nursing Notes * Elvie George CMA - 06/23/2024 2:43 PM EST The patient has been properly identified by confirmation of name and date of . Chief Complaint Patient presents with NEW PATIENT Worsening parkinsons symptoms, started getting worse 6-8 months ago. Lightheadedness, sleeping a lot, waking up feeling tired, very unbalanced. [facility]. Starts sundowning around noon according to his friends at [facility]. documented in this encounter Plan of Treatment Upcoming Encounters Date Type Department Care Team (Late st Contact Info) Description 07/29/2024 12:20 PM EST Office Visit Family Practice [facility] [address] [place] [address] Ruth Lucia MD [address] [place] [address] 08/11/2024 4:20 PM EST Office Visit Neurology [facility] [address] [facility] [address] Tone Chavez, [address] [facility] [address] 09/09/2024 11:00 AM EST Office Visit Urology, [facility] [address] [place] [address] Noé Pitts MD [address] [place] [address] Scheduled Referrals Name Type Priority Associated Diagnoses Orde r Schedule PHYSICAL THERAPY REFERRAL OP Referral Within 30 days (routine) Parkinson's disease, unspecified whether dyskinesia present, unspecified whether manifestations fluctuate (HCC) Muscle weakness (generalized) Ordered: 06/23/2024 Health Maintenance Due Date Last Done Comments Adult Wellness Visit 03/06/2017 03/06/2016 Colonoscopy 08/03/2023 08/03/2022, 07/22, 03/08/2020, Additional history exists DTap/Tdap Vaccines (3 - Td or Tdap) 02/13/2024 02/12/2014, 07/14/2009 COVID-19 Vaccine ( - season) 2024 07/08/2023, 05/17/2022, 06/08/2021, Additional history exists Influenza Vaccine (FLU shot) (#1) 2024 05/17/2022, [...] this encounter Medical Devices Implanted Type Area Commissioned Defence [employer] Officer Device Identifier Shelf Expiration Date Model / Serial / Lot Lens Intraoc 20.0 - [id number] - [id number] Implanted:Qty: 1 on 09/26/2021 by Joni Moreno MD at OR [facility] Left: Eye BAUSCH [employer] LOMB 04/20/2026 [id number] / [id number] / [id number] Lens Intraoc 20.0 - [id number] - [id number] Implanted:Qty: 1 on 10/10/2021 by Joni Moreno MD at OR [facility] Right: Eye BAUSCH & LOMB 05/21/2026 [id number] / [id number] / [id number] Sureclip 16mm 235cm - [id number] Implanted:Qty: 2 on 08/03/2022 by Enid John MD at ENDOSCOPY [facility] Colon MICRO TECH ENDOSCOPY 09/28/2024 [id number] / / documented as of this encounter Visit Diagnoses Diagnosis Parkinson's disease, unspecified whether dyskinesia present, unspecified whether manifestations fluctuate (HCC)- Primary Muscle weakness (generalized) Elevated LDL cholesterol level Pure hypercholesterolemia BPH with obstruction/lower urinary tract symptoms Hypertrophy of prostate with urinary obstruction and other lower urinary tract symptoms (LUTS) documented in this encounter Advance Directives Documents on File Type Date Recorded Patient 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 FOR LIFE-SUSTAINING TREATMENT Care Teams Benefits Consultant Relationship Specialty Start Date End Date Ruth Lucia MD [address] [facility] [place] [address] PCP - General Internal Medicine 01/27/24 documented as of this encounter"
--- OUTSIDE RECORDS SUMMARY | 2024-07-20 09:20 | External Medical Summary ---
Author Name Unknown Address Unknown Organization K01:[facility] [address] [facility] [address] Laboratory Report Ordering Provider Test Date Status VANIA LANDERS 06/23/2024 15:56:17 Final Observation Date Value Abnormality Reference (Units ) Status Triglyceride 06/23/2024 15:56:17 128 <=174 ( mg/dL) Final Triglyceride Reference Range s (mg/dL):
<150 Acceptable
150-174 Borderline high
175-499 High
>=500 Very high Cholesterol 06/23/2024 15:56:17 128 <200 (mg /dL) Final Total Cholesterol Reference Ranges (mg/dL):
<200 Desirable
200-239 Borderline high
>=240 High HDL 06/23/2024 15:56:17 39 Below low normal >39 (mg/dL) Final HDL Cholesterol Reference Ra nges (mg/dL):
>=60 High (Desirable)
<50 Low (Undesirable) For Females
<40 Low (Undesirable) For Males NON-HDL CHOLESTEROL 06/23/2024 15:56:17 89 <=159 (mg/dL) Final Non-HDL Cholesterol Referenc e Range (mg/dL):
<100 Target level for high risk ASCVD patient
<130 Optimal for general population
130-159 Near optimal for general population
160-189 Borderline High
190-219 High
>=220 Very High LDL, (calculated) 06/23/2024 15:56:17 63 <= 129 (mg/dL) Final LDL Cholesterol Reference Ra nges (mg/dL):
<70 Target level for high risk ASCVD patient
<100 Optimal for general population
100-129 Near optimal for general population
130-159 Borderline high
160-189 High
>=190 Very high Performing Location LAB[facility] - [address] [place] [address]
--- OUTSIDE RECORDS SUMMARY | 2024-07-20 09:20 | External Medical Summary | Summary of Care ---
Author Name Unknown Organization [facility] Address [address] [place] [address] Phone [phone] Care Team Providers Care Building Materials Sales Attendant Name Role Phone Ruth Lucia MD Primary Care Provider Encounter Details Date Type Department Care Team (Late st Contact Info) Description 01/27/2024 Telephone Family Practice [facility] [address] [facility] [address] Ruth Lucia MD [address] [facility] [address] Allergies No known active allergiesdocumented as of [...] mRNA, LNP-s, No Pre serve, 2-Dose Series ([employer]) 06/08/2021,11/09/2020,10/19/2020 Covid-19, Mrna, Lnp-s, Pf, B ivalent, 30 Mcg, IM, 12 yrs and above ([employer]) 05/17/2022 DTaP Dipth/Tet/Acell Pertussis (Infanrix), Peds 07/14/2009 [...] encounter Miscellaneous Notes * Telephone Encounter - Shy Quinn MED ASSIST - 02/07/2024 10:16 AM EDT Called and will fax list to us shortly. Also sent a fax request as well. * Telephone Encounter - Ruth Lucia MD - 01/31/2024 4:29 PM EDT Have not seen med list. Please try again. * Telephone Encounter - Lucila Ramirez LPN - 01/28/2024 2:20 PM EDT Called [facility], asked for current med list on this patient be faxed to us. Awaiting fax. * Telephone Encounter - Ruth Lucia MD - 01/27/2024 8:40 PM EDT Please ask [facility] to send current medication list. documented in this encounter Plan of Treatment Upcoming Encounters Date Type Department Care Team (Late st Contact Info) Description 07/29/2024 12:20 PM EST Office Visit Family Practice [facility] [address] [address] Ruth Lucia MD [address] [address] 09/09/2024 11:00 AM EST Office Visit Urology, [facility] [address] [place] [address] Noé Pitts MD [address] [place] [place] [address] Health Maintenance Due Date Last Done Comments [...] this encounter Medical Devices Implanted Type Area Check Processor Device Identifier Shelf Expiration Date Model / Serial / Lot Lens Intraoc 20.0 - [id number] - [id number] Implanted:Qty: 1 on 09/26/2021 by Joni Moreno MD at OR [facility] Left: Eye [employer] LOMB 04/20/2026 [id number] / [id number] / [id number] Lens Intraoc 20.0 - [id number] - [id number] Implanted:Qty: 1 on 10/10/2021 by Joni Moreno MD at OR [facility] Right: Eye BAUSCH [employer] LOMB 05/21/2026 [id number] / [id number] / [id number] Sureclip 16mm 235cm - [id number] Implanted:Qty: 2 on 08/03/2022 by Enid John MD at ENDOSCOPY [facility] Colon MICRO TECH ENDOSCOPY 09/28/2024 [id number] / / documented as of this encounter Advance Directives Documents on File Type Date Recorded Patient Social Services Specialist Expl anation POLST 03/27/2023 [place] OR [facility] FOR LIFE-SUSTAINING TREATMENT Care Teams Building Materials Sales Attendant Relationship Specialty Start Date End Date Ruth Lucia MD [address] [facility] [place] [address] PCP - General Internal Medicine 01/27/24 documented as of this encounter
--- OUTSIDE RECORDS SUMMARY | 2024-07-20 09:20 | External Medical Summary | Summary of Care ---
Author Name Unknown Organization [facility] Address [address] [place] [address] Phone [phone] Care Team Providers Care Concrete Mixing Truck Driver Name Role Phone Ruth Lucia MD Primary Care Provider Reason for Visit * Reason Comments Outpatient Testing Encounter Details Date Type Department Care Team (Late st Contact Info) Description 06/23/2024 4:10 PM EST Laboratory Laboratory, [facility] [address] [place] [id number] [facility] [address] [place] [address] [employer] Other*[id number]; Elevated LDL cholesterol level; B12 deficiency; Fatigue, unspecified type Allergies No known active allergiesdocumented as of [...] in the morning. 30 Tablet 3 Active DULoxetine HCl 30 MG Oral Capsule Delayed Release Particles (Cymbalta)Indicat ions:Lumbar degenerative disc disease,Episode of recurrent major depressive disorder, unspecified depression episode severity (HCC) Take 1 Capsule by mouth in the morning. 30 Capsule 11 3 Active Meclizine HCl 25 MG Oral Tablet ChewableIndicatio ns:Vertigo Take 1 Tablet by mouth 2 times a day as needed for Dizziness. 30 Tablet 1 3 Active Pravastatin Sodium 20 MG Oral Tablet (Pravachol)Indica tions:Mixed dyslipidemia,PVC (premature ventricular contraction) Take 1 Tablet by mouth every evening. 30 Tablet 11 3 Active Tamsulosin HCl 0.4 MG Oral Capsule (Flomax)Indicatio ns:BPH with obstruction/lower urinary tract symptoms Take 1 Capsule by mouth in the morning and 1 Capsule in the evening. 60 Capsule 11 3 Active Aspirin 81 MG Oral Tablet Delayed ReleaseIndication s:Palpitations Take 1 Tablet by mouth in the morning. 30 Tablet 3 Active Polyethylene Glycol 3350 17 GM Oral Packet (Miralax)Indicati ons:Constipation Take 1 Packet by mouth in the morning. 30 Each 11 3 Active Midodrine HCl 2.5 MG Oral [...] mRNA, LNP-s, No Pre serve, 2-Dose Series ([employer]) 06/08/2021,11/09/2020,10/19/2020 COVID-19, MRNA-LNP, PF, 50 M CG/0.5 mL, 12 YRS AND ABOVE, IM (MODERNA-Spikevax) 07/08/2023 Covid-19, Mrna, Lnp-s, Pf, B ivalent, 30 Mcg, IM, 12 yrs and above ([employer]) 05/17/2022 DTaP Dipth/Tet/Acell Pertussis (Infanrix), Peds 07/14/2009 [...] 12:20 PM EST Office Visit Family Practice [facility] [address] [address] Ruth Lucia MD [address] [address] 08/11/2024 4:20 PM EST [facility] [address] [place] [address] Tone Chavez DO [address] [place] [address] 09/09/2024 11:00 AM EST Office Visit Urology, [facility] [address] [address] Noé Pitts MD [address] [address] Pending Results Name Type Priority Associated Diagnoses Date /Time MYCODE SUBSEQUENT ADULT Lab Routine [employer] Other*[id number] 06/23/2024 3:56 PM EST LIPID PANEL WITH DIRECT LDL IF TG IS HIGH Lab Routine Elevated LDL cholesterol level 06/23/2024 3:56 PM EST VITAMIN B12 Lab Routine B12 deficiency 06/23/2024 3:56 PM EST TSH WITH FREE T4 IF INDICATED Lab Routine Fatigue, unspecified type 06/23/2024 3:56 PM EST MYCODE SST1 Lab Routine [employer] Other*[id number] 06/23/2024 3:56 PM EST MYCODE SST2 Lab Routine [employer] Other*[id number] 06/23/2024 3:56 PM EST Health Maintenance Due Date Last Done Comments Adult Wellness Visit 03/06/2017 03/06/2016 Colonoscopy 08/03/2023 08/03/2022, 07/22, 03/08/2020, Additional history exists DTap/Tdap Vaccines (3 - Td or Tdap) 02/13/2024 02/12/2014, 07/14/2009 COVID-19 Vaccine ( season) 2024 07/08/2023, 05/17/2022, 06/08/2021, Additional history [...] this encounter Medical Devices Implanted Type Area Research Biostatistician Device Identifier Shelf Expiration Date Model / Serial / Lot Lens Intraoc 20.0 - [id number] - [id number] Implanted:Qty: 1 on 09/26/2021 by Joni Moreno MD at OR [facility] Left: Eye [employer]USCH [employer] LOMB 04/20/2026 [id number] / [id number] / [id number] Lens Intraoc 20.0 - [id number] - [id number] Implanted:Qty: 1 on 10/10/2021 by Joni Moreno MD at OR [facility] Right: Eye BAUSCH [employer] LOMB 05/21/2026 [id number] / [id number] / [id number] Sureclip 16mm 235cm - [id number] Implanted:Qty: 2 on 08/03/2022 by Enid John MD at ENDOSCOPY [facility] Colon MICRO TECH ENDOSCOPY 09/28/2024 [id number] / / documented as of this encounter Visit Diagnoses Diagnosis [employer] Other*[id number] Elevated LDL cholesterol level Pure hypercholesterolemia B12 deficiency Other B-complex deficiencies Fatigue, unspecified type documented in this encounter Advance Directives Documents on File Type Date Recorded Patient Professional Development Instructor Expl anation POLST 03/27/2023 [place] [facility] FOR LIFE-SUSTAINING TREATMENT Care Teams Concrete Mixing Truck Driver Relationship Specialty Start Date End Date Ruth Lucia MD [address] [place] [address] PCP - General Internal Medicine 01/27/24 documented as of this encounter
--- OUTSIDE RECORDS SUMMARY | 2024-07-20 09:20 | External Medical Summary | Summary of Care ---
Author Name Unknown Organization [facility] Address [address] [place] [address] Phone [phone] Care Team Providers Care Environmental Technical Officer Name Role Phone Ruth Lucia MD Primary Care Provider Encounter Details Date Type Department Care Team (Late st Contact Info) Description 01/30/2024 Orders Only PATIENT PORTAL DO NOT DELETE THIS DEPT USED BY [place] [id number] Allergies No known active allergiesdocumented as of this encounter (statuses as of 01/30/2024) Medications Medication Sig Dispensed Refills Start Date [...] as of this encounter (statuses as of 01/30/2024) Active Problems Problem Noted Date Diagnosed Date B12 deficiency 01/27/2024 Elevated LDL cholesterol level 01/27/2024 History of multiple cerebrovascular accidents (C VAs) 05/19/2023 BPH with obstruction/lower urinary tract symptom s 08/21/2021 Parkinson's disease 01/14/2019 Lumbar degenerative disc disease 01/14/2019 Symptomatic PVCs 03/12/2016 Irritable bowel syndrome with constipation 02/12 Dyslipidemia documented as of this encounter (statuses as of 01/30/2024) Resolved Problems Problem Noted Date Diagnosed Date [...] as of this encounter (statuses as of 01/30/2024) Immunizations Name Administration Dates Next Due COVID-19 mRNA, LNP-s, No Pre serve, 2-Dose Series ([employer]) 06/08/2021,11/09/2020,10/19/2020 Covid-19, Mrna, Lnp-s, Pf, B ivalent, [...] 12:20 PM EST Office Visit Family Practice [facility] [address] [address] Ruth Lucia MD [address] [address] 09/09/2024 11:00 AM EST Office Visit Urology, [facility] [address] [address] Noé Pitts MD [address] [address] Health Maintenance Due Date Last Done Comments Colonoscopy 08/03/2023 08/03/2022, 07/22, 03/08/2020, Additional history exists COVID-19 Vaccine ( - 2022- season) 2023 07/08/2023, 05/17/2022, 06/08/2021, Additional history [...] this encounter Medical Devices Implanted Type Area Artillery Or Naval Gunfire Observer Device Identifier Shelf Expiration Date Model / Serial / Lot Lens Intraoc 20.0 - [id number] - [id number] Implanted:Qty: 1 on 09/26/2021 by Joni Moreno MD at OR [facility] Left: Eye BAUSCH & LOMB 04/20/2026 [id number] / [id number] / [id number] Lens Intraoc 20.0 - [id number] - [id number] Implanted:Qty: 1 on 10/10/2021 by Joni Moreno MD at OR [facility] Right: Eye BAUSCH & LOMB 05/21/2026 [id number] / [id number] / [id number] Sureclip 16mm 235cm - [id number] Implanted:Qty: 2 on 08/03/2022 by Enid John MD at ENDOSCOPY [facility] Colon MICRO TECH ENDOSCOPY 09/28/2024 [id number] / / documented as of this encounter Advance Directives Documents on File Type Date Recorded Patient Store Stock Associate Expl anation POLST 03/27/2023 [place] [facility] LIFE-SUSTAINING TREAT[facility] Care Teams Environmental Technical Officer Relationship Specialty Start Date End Date Ruth Lucia MD [address] [address] PCP - General Internal Medicine 01/27/24 documented as of this encounter
--- OUTSIDE RECORDS SUMMARY | 2024-07-20 09:20 | External Medical Summary ---
Author Name Unknown Address Unknown Organization [facility] [address] [place] [address] Laboratory Report Ordering Provider Test Date Status KENZIE ARANGO 06/23/2024 15:56:17 Final Observation Date Value Abnormality Reference (Units ) Status MYCODE SPECIMEN-SST 06/23/2024 15:56:17 Freezing of extracted DNA, whole blood and/or serum. Final Performing Location [facility] - [address] [place] [address]
--- OUTSIDE RECORDS SUMMARY | 2024-07-20 09:20 | External Medical Summary ---
Author Name Unknown Address Unknown Organization [facility] - [address] [place] [address] Laboratory Report Ordering Provider Test Date Status KENZIE ARANGO 06/23/2024 15:56:17 Final Observation Date Value Abnormality Reference (Units ) Status MYCODE SPECIMEN-SST 06/23/2024 15:56:17 Freezing of extracted DNA, whole blood and/or serum. Final Performing Location [facility] - [address] [place] [address]
--- OUTSIDE RECORDS SUMMARY | 2024-07-20 09:20 | External Medical Summary | Summary of Care ---
Author Name Unknown Organization [facility] Address [address] [place] [address] Phone [phone] Care Team Providers Care Waste Cotton Cleaner Name Role Phone Ruth Lucia MD Primary Care Provider Reason for Referral * Evaluate & Treat - Unlimited Visits (Within 30 days (routine)) - Authorized Specialty Diagnoses / Procedures Referred By Contac t Referred To Contact Urology Diagnoses BPH with obstruction/lower urinary tract symptoms Ruth Lucia MD [address] [place] [address] Referral ID Status Reason Start Date Expiration Date Visits Requested Visits Authorized [id number] Authorized Specialty Services Required 01/27/2024 999 999 Question Answer Referral Priority Within 30 days (routine) Where should this appointment be scheduled? [facility] What is the patient being referred for? Urinary Concerns - nocturia, BPH Reason for Visit * Reason Comments NEW PATIENT New pt here to get e stablished in care, has balance issues ands strength issues with moving. Was seen in ER a week ago, was not seen for any issues just a general check. Has some light headedness as well and some confusion. Encounter Details Date Type Department Care Team (Late st Contact Info) Description 01/27/2024 5:40 PM EDT Office Visit Family Practice [facility] [address] [place] [address] Ruth Lucia MD [address] [place] [address] Elevated LDL cholesterol level*; B12 deficiency; BPH with obstruction/lower urinary tract symptoms; Fatigue, unspecified type Allergies No known active allergiesdocumented as of this encounter (statuses as of 01/27/2024) Medications Medication Sig Dispensed Refills Start Date [...] Active Aspirin 81 MG Oral Tablet Delayed ReleaseIndications:[facility] Take 1 Tablet by mouth in the morning. 30 Tablet 03/28/2023 Active Polyethylene Glycol 3350 17 GM Oral Packet (Miralax)Indications: Constipation Take 1 Packet by mouth in the morning. 30 Each 03/28/2023 Active documented as of this encounter (statuses as of 01/27/2024) Active Problems Problem Noted Date Diagnosed Date B12 deficiency 01/27/2024 Elevated LDL cholesterol level 01/27/2024 History of multiple cerebrovascular accidents (C VAs) 05/19/2023 BPH with obstruction/lower urinary tract symptom s 08/21/2021 Parkinson's disease 01/14/2019 Lumbar degenerative disc disease 01/14/2019 Symptomatic PVCs 03/12/2016 Irritable bowel syndrome with constipation 02/12 Dyslipidemia documented as of this encounter (statuses as of 01/27/2024) Resolved Problems Problem Noted Date Diagnosed Date [...] as of this encounter (statuses as of 01/27/2024) Immunizations Name Administration Dates Next Due COVID-19 mRNA, LNP-s, No Pre serve, 2-Dose Series ([employer]) 06/08/2021,11/09/2020,10/19/2020 Covid-19, Mrna, Lnp-s, Pf, B ivalent, 30 Mcg, IM, 12 yrs and above ([employer]) 05/17/2022 DTaP Dipth/Tet/Acell Pertussis (Infanrix), Peds 07/14/2009 [...] Sign Reading Time Taken Comments Blood Pressure 144/88 01/27/2024 6:28 PM EDT Pulse 77 01/27/2024 5:35 PM EDT Temperature 36.7 C (98.1 F) 01/27/2024 5:35 PM ED T Respiratory Rate 16 01/27/2024 5:35 PM EDT Oxygen Saturation 98% 01/27/2024 5:35 PM EDT Inhaled Oxygen Concentration - - Weight 75.3 kg (166 lb) 01/27/2024 5:35 PM EDT Height 169.5 cm (5' 6.73") 01/27/2024 5:35 PM ED T Body Mass Index 26.21 01/27/2024 5:35 PM EDT documented in this encounter Patient Instructions * Patient Instructions* Ruth Lucia MD - 01/27/2024 6:33 PM EDT Homework: -- need lab drawn in next couple weeks. Fasting is better, but not mandatory. -- please fax current medications to [facility]. Need to check doses on a couple medications. -- we will get you back in to see Neurology -- I put in a referral for Urology -- we are checking B12 levels -- if you are not getting regular skilled physical therapy, let me know and I will place and order. documented in this encounter Progress Notes * Ruth Lucia MD - 01/27/2024 6:05 PM EDT Images from the original note were not included. History of Present Illness Jacques Alicea is a 74 year old male that presents for NEW PATIENT (New pt here to get established in care, has balance issues ands strength issues with moving. Was seen in ER a week ago, was not seenfor any issues just a general check. Has some light headedness as well and some confusion. ) Accompanied today by son Cresencio. Parkinsons - carbidopa levodopa. Needs to re-establish with neurology. Having more falls, mostly inhis room. Has two walkers (his and his girlfriend Danay's) in small bedroom, can be cumbersome to use so mostly wall/furniture surfs. Mood- Cymbalta. Mood has been low lately. Sleeping 15 hrs/day. Urinary incontinence - flomax. Increased in Feb 2023, unclear if taking higher dose.. Constipation - miralax, helping B12 deficiency - oral B12. Unclear if he's taking this. History of stroke - statin, aspirin. Unclear when strokes happened, was evident on imaging 05/2023 at hospital. Lived in [facility]. Moved here when retired in 2006 to be near son Cresencio., Current medications and allergies reviewed. Past medical history and problem list reviewed. Physical Exam Vitals: 01/27/24 1735 01/27/24 1828 Temp: 36.7 C (98.1 F) Pulse: 77 Resp: 16 SpO2: 98% BP: 146/90 144/88 BMI: 26.21 BP Readings from Last 3 Encounters: 01/27/24 144/88 03/14/23 110/70 01/01/23 116/72 Wt Readings from Last 3 Encounters: 01/27/24 75.3 kg (166 lb) 03/14/23 68.3 kg (150 lb 8 oz) 01/01/23 73 kg (160 lb 14.4 oz) Physical Exam Vitals and nursing note reviewed. Constitutional: General: He is not in acute distress. Appearance: Normal appearance. He is not ill-appearing. Comments: Rollator walker with large handles/brakes and a seat. HENT: Head: Normocephalic and atraumatic. Eyes: General: No scleral icterus. Pupils: Pupils are equal, round, and reactive to light. Neck: Thyroid: No thyroid mass, thyromegaly or thyroid tenderness. Cardiovascular: Rate and Rhythm: Normal rate and regular rhythm. Heart sounds: No murmur heard. Pulmonary: Effort: Pulmonary effort is normal. Breath sounds: Normal breath sounds. Abdominal: General: There is no distension. Palpations: Abdomen is soft. Tenderness: There is no abdominal tenderness. There is no guarding. Musculoskeletal: Right lower leg: No edema. Left lower leg: No edema. Lymphadenopathy: Cervical: No cervical adenopathy. Skin: General: Skin is warm and dry. Neurological: Mental Status: He is alert. Comments: Voice a bit soft. Resting tremor. Psychiatric: Mood and Affect: Mood normal. Behavior: Behavior normal. I have reviewed the following results: CBC, BMP, B12, and PSA Recent normal CBC, BMP from [facility] last week. Assessment and Plan Elevated LDL cholesterol level Update lipids. - LIPID PANEL WITH DIRECT LDL IF TG IS HIGH; Future B12 deficiency - VITAMIN B12; Future BPH with obstruction/lower urinary tract symptoms - ADULT/PEDS UROLOGY REFERRAL OP Fatigue, unspecified type - TSH WITH FREE T4 IF INDICATED; Future If TSH normal, will increase Cymbalta as increased sleeping could be depression. Encounter sent to Neurology to get back into see dr Chavez. Patient Instructions Homework: -- need lab drawn in next couple weeks. Fasting is better, but not mandatory. -- please fax current medications to [facility]. Need to check doses on a couple medications. -- we will get you back in to see Neurology -- I put in a referral for Urology -- we are checking B12 levels -- if you are not getting regular skilled physical therapy, let me know and I will place and order. Wrap-Up Follow Up: Return in about 6 months (around 07/29/2024) for Return with Khari, Print labs to take to [facility]. PLease print AVS.. | For: Return with Khari Print labs to take to [facility]. [facility]Lease print AVS. Time: I spent a total of 40-54 minutes (exact time 42 mins) on the date of service in preparation, delivery, and documentation of the care provided to Jacques Alicea excluding any time spent in the performance of separately billed services. documented in this encounter Plan of Treatment Upcoming Encounters Date Type Department Care Team (Late st Contact Info) Description 07/29/2024 12:20 PM EST Office Visit Family Practice [facility] [address] [address] Ruth Lucia MD [address] [address] 09/09/2024 11:00 AM EST Office Visit Urology, [facility] [address] [address] Noé Pitts MD [address] [place] [address] Scheduled Orders Name Type Priority Associated Diagnoses Orde r Schedule LIPID PANEL WITH DIRECT LDL IF TG IS HIGH Lab Routine Elevated LDL cholesterol level Expected: 01/27/2024, Expires: 01/26/2025 VITAMIN B12 Lab Routine B12 deficiency Expected: 01/27/2024, Expires: 01/26/2025 TSH WITH FREE T4 IF INDICATED Lab Routine Fatigue, unspecified type Expected: 01/27/2024, Expires: 01/26/2025 Scheduled Referrals Name Type Priority Associated Diagnoses Orde r Schedule ADULT/PEDS UROLOGY REFERRAL OP Referral Within 30 days (routine) BPH with obstruction/lower urinary tract symptoms Ordered: 01/27/2024 Health Maintenance Due Date Last Done Comments [...] this encounter Medical Devices Implanted Type Area Boat Painter Device Identifier Shelf Expiration Date Model / Serial / Lot Lens Intraoc 20.0 - [id number] - [id number] Implanted:Qty: 1 on 09/26/2021 by Joni Moerno MD at OR [facility] Left: Eye [employer]OMB 04/20/2026 [id number] / [id number] / [id number] Lens Intraoc 20.0 - [id number] - [id number] Implanted:Qty: 1 on 10/10/2021 by Joni Moreno MD at OR [facility] Right: Eye BAUSCH [employer] LOMB 05/21/2026 [id number] / [id number] / [id number] Sureclip 16mm 235cm - [id number] Implanted:Qty: 2 on 08/03/2022 by Enid John MD at ENDOSCOPY [facility] Colon MICRO TECH ENDOSCOPY 09/28/2024 [id number] / / documented as of this encounter Visit Diagnoses Diagnosis Elevated LDL cholesterol level- Primary Pure hypercholesterolemia B12 deficiency Other B-complex deficiencies BPH with obstruction/lower urinary tract symptoms Hypertrophy of prostate with urinary obstruction and other lower urinary tract symptoms (LUTS) Fatigue, unspecified type documented in this encounter Advance Directives Documents on File Type Date Recorded Patient President And Chief Operating Officer Expl anation POLST 03/27/2023 [place] [facility] FOR LIFE-SUSTAINING TREATMENT Care Teams Waste Cotton Cleaner Relationship Specialty Start Date End Date Ruth Lucia MD [address] [facility] [place] [address] PCP - General Internal Medicine 01/27/24 documented as of this encounter
--- OUTSIDE RECORDS SUMMARY | 2024-07-20 09:20 | External Medical Summary ---
Author Name Unknown Address Unknown Organization K01:[facility] - [address] [place] [address] Laboratory Report Ordering Provider Test Date Status VANIA LANDERS 06/23/2024 15:56:17 Final Observation Date Value Abnormality Reference (Units ) Status TSH 06/23/2024 15:56:17 2.43 0.27-4.20 (uIU/mL) Final Performing Location [facility] - [address] [place] [address]
--- OUTSIDE RECORDS SUMMARY | 2024-07-20 09:20 | External Medical Summary ---
Author Name Unknown Address Unknown Organization K01:[facility] - [address] [place] [address] Laboratory Report Ordering Provider Test Date Status VANIA LANDERS 06/23/2024 15:56:17 Final Observation Date Value Abnormality Reference (Units ) Status Vitamin B12 06/23/2024 15:56:17 [phone] (pg/mL) Final Performing Location LABORATORY [facility] - [address] [place] [address]
--- OUTSIDE RECORDS SUMMARY | 2024-07-20 09:20 | External Medical Summary | Summary of Care ---
Author Name Unknown Organization [facility] Address [address] [place] [address] Phone [phone] Care Team Providers Care Psychologist Educational Name Role Phone Ruth Lucia MD Primary Care Provider Reason for Referral * Evaluate & Treat - Unlimited Visits (Within 30 days (routine)) - Authorized Specialty Diagnoses / Procedures Referred By Contac t Referred To Contact Urology Diagnoses BPH with obstruction/lower urinary tract symptoms Ruth Lucia MD [address] [place] [address] Referral ID Status Reason Start Date Expiration Date Visits Requested Visits Authorized [id number] Authorized Specialty Services Required 01/27/2024 999 999 [...] 5:40 PM EDT Office Visit Family Practice [facility] [address] [place] [address] Ruth Lucia MD [address] [place] [address] Elevated LDL cholesterol level*; B12 deficiency; BPH [...] mRNA, LNP-s, No Pre serve, 2-Dose Series (Blyk) 06/08/2021,11/09/2020,10/19/2020 Covid-19, Mrna, Lnp-s, Pf, B ivalent, 30 Mcg, IM, 12 yrs and above (Blyk) 05/17/2022 DTaP Dipth/Tet/Acell Pertussis (Infanrix), Peds 07/14/2009 [...] mandatory. -- please fax current medications to [facility]. Need to check doses on [...] on imaging 05/2023 at hospital. Lived in [facility]. Moved here when retired in 2006 to [...] and PSA Recent normal CBC, BMP from [facility] last week. Assessment and Plan Elevated LDL [...] mandatory. -- please fax current medications to [facility]. Need to check doses on [...] with Khari, Print labs to take to [facility]. PLease print AVS.. | For: Return with Khari Print labs to take to [facility]. PLease print AVS. Time: I spent a [...] 12:20 PM EST Office Visit Family Practice [facility] [address] [address] Ruth Lucia MD [address] [address] 09/09/2024 11:00 AM EST Office Visit Urology, [facility] [address] [address] Noé Pitts MD [address] [place] [address] Scheduled Orders Name Type Priority Associated Diagnoses [...] this encounter Medical Devices Implanted Type Area Personal Support Worker Device Identifier Shelf Expiration Date Model / Serial / Lot Lens Intraoc 20.0 - [id number] - [id number] Implanted:Qty: 1 on 09/26/2021 by Joni Moreno MD at OR [facility] Left: Eye [employer] 04/20/2026 [id number] / [id number] / [id number] Lens Intraoc 20.0 - [id number] - [id number] Implanted:Qty: 1 on 10/10/2021 by Joni Moreno MD at OR [facility] Right: Eye [employer] 05/21/2026 [id number] / [id number] / [id number] Sureclip 16mm 235cm - [id number] Implanted:Qty: 2 on 08/03/2022 by Enid John MD at ENDOSCOPY [facility] Colon MICRO TECH ENDOSCOPY 09/28/2024 [id number] / / documented as of this encounter Visit Diagnoses Diagnosis Elevated LDL cholesterol level- Primary Pure hypercholesterolemia B12 deficiency Other B-complex deficiencies BPH with obstruction/lower urinary tract symptoms Hypertrophy of prostate with urinary obstruction and other lower urinary tract symptoms (LUTS) Fatigue, unspecified type documented in this encounter Advance Directives Documents on File Type Date Recorded Patient [employer] Player Expl anation POLST 03/27/2023 [place] [facility] FOR LIFE-SUSTAINING TREATMENT Care Teams Psychologist Educational Relationship Specialty Start Date End Date Ruth Lucia MD [address] [facility] [place] [address] PCP - General Internal Medicine 01/27/24 documented as of this encounter
[2024-07-20 09:22] LABS: Hematocrit (blood only) 45.3 % (42.0-52.0); Hemoglobin 15.2 g/dl (14.0-18.0); Mean Corpuscular Hemoglobin 31.7 pg (25.0-34.0); Mean Corpuscular Hgb Conc 33.6 g/dL (32.0-36.0); Mean Corpuscular Volume 94.6 fL (80.0-100.0); Mean Platelet Volume 10.9 fL (9.4-12.4); Platelet Count 179 K/uL (130-400); RDW Coefficient of Variation 12.6 % (11.5-14.5); Red Blood Count 4.79 M/uL (4.70-6.10); White Blood Count 8.26 K/ul (4.8-10.8)
[2024-07-20 09:25] LABS: Base Excess VBG 2.5 mEq/L; HCO3 VBG 28 mmol/L; Oxygen Saturation VBG < 60.0 %; PCO2 VBG 45 mmHg (38-50); PO2 VBG 28 mmHg
[2024-07-20 09:32] LABS: Appearance Urine Clear (Clear); Bacteria Urine Automated None Seen (None Seen); Bilirubin Urine Negative (Negative); Blood Urine Negative (Negative); Color Urine Yellow; Epithelial Cell Urine Auto 0-2 /hpf (0-2); Glucose Urine UA Negative (Negative); Ketones Urine 1+ (Negative); Leukocyte Esterase Urine Negative (Negative); Nitrite Urine Negative (Negative); Protein Urine Trace (Negative); RBC Urine Automated 0-2 /hpf (0-2); Specific Gravity Urine 1.033 (1.000-1.030); Urobilinogen Urine Negative (Negative); WBC Urine Automated 0-5 /hpf (0-5)
[2024-07-20 09:37] LABS: Albumin Level 4.2 gm/dl (3.4-5.0); BUN Creatinine Ratio 31.7 (10-20); Bilirubin Direct 0.1 mg/dl (0-0.2); Calcium 8.8 mg/dl (8.6-10.3); Creatinine Clr Calc Pharmacy 62.4 ml/min; Potassium 4.1 mmol/L (3.5-5.1); Total Protein 7.4 gm/dl (6.0-8.3)
--- NOTE | 2024-07-20 09:43 | CT Scan Report ---
CT head/brain wo con CLINICAL HISTORY: ams Technique: Contiguous axial CT images of the head were acquired from the base of the skull to the juanito ariel without intravenous contrast administration. Images were viewed in brain, subdural and bone [facility] . Automated dose lowering techniques and/or adjustment according to patient size were utilized for this exam. Comparison: Comparison is made to CT head 01/19/2024 Findings: Areas of decreased attenuation are present in the periventricular and subcortical white matter bilate rally consistent with small vessel ischemic disease. Generalized cerebral atrophy with commensurate e nlargement of the ventricles, sulci, and cisterns is also present. There is no acute intracranial hem orrhage or evidence of acute territorial infarction. No shift of the midline structures, mass effect, or extra-axial abnormalities are shown. Atherosclerotic calcifications are present in the intracran ial segments of the internal carotid arteries. Focal encephalomalacia in the right internal capsule i s unchanged. Imaged portions of the paranasal sinuses and mastoid air cells are clear. The orbits appear normal. There are no acute fractures of the calvaria or scalp swelling. Impression: No acute intracranial hemorrhage, no evidence of acute territorial infarction or other acute intracra nial disease process. ACT 112: Negative or not required by law. Electronically signed by: Foster Miguel M.D. 07/20/2024 9:41 AM
[2024-07-20 09:45] LABS: Influenza A virus by PCR Negative (Neg); Influenza B virus by PCR Negative (Neg); RSV by PCR Negative (Neg); SARS CoV2 RNA(COVID-19) Ceph POSITIVE (Negative)
[2024-07-20] MEDS: SODIUM CHLORIDE 0.9% 500 ML IV SCH (09:45)
[2024-07-20 09:46] LABS: INR 1.1 (0.9-1.1); Partial Thromboplastin Time 27 Seconds (21-31); Prothrombin Time 11.7 Seconds (9.0-12.0)
[2024-07-20 09:53] LABS: Basophils # (auto) 0.02 K/uL (0.00-0.20); Basophils % (auto) 0.2 %; Eosinophils # (auto) 0.01 K/uL (0.00-0.50); Eosinophils % (auto) 0.1 %; Immature Granulocytes # (auto) 0.03 K/uL (0.01-0.20); Immature Granulocytes % (auto) 0.4 %; Lymphocytes # (auto) 0.22 K/uL (1.20-3.40); Lymphocytes % (auto) 2.7 %; Monocytes # (auto) 0.46 K/uL (0.11-0.59); Monocytes % (auto) 5.6 %; Neutrophils # (auto) 7.52 K/uL (1.40-6.50)
--- NOTE | 2024-07-20 09:57 | XRay Report ---
XR chest 1V portable CLINICAL HISTORY: Sepsis TECHNIQUE: Single frontal radiograph of the chest was obtained. Comparison: Comparison is made to chest radiograph 05/22/2023 FINDINGS: No lines and tubes are seen. The cardiomediastinal silhouette is normal. Faint bibasilar airspace opa cities are seen. No evidence of pleural effusion or pneumothorax. IMPRESSION: Bilateral lower lung predominant airspace opacities which may represent atelectasis, pneumonia, and/o r aspiration. ACT 112: Negative or not required by law. Electronically signed by: Foster Miguel M.D. 07/20/2024 9:55 AM
[2024-07-20] MEDS ORDERED: VANCOMYCIN CONSULT ACTIVE PRN (10:08)
[2024-07-20] MEDS: PIPERACILLIN/TAZOBACTAM 4.5 GM/120 ML BAG IV ONE (10:19)
[2024-07-20] MEDS: SODIUM CHLORIDE 0.9% 500 ML IV ONE (10:21)
--- NOTE | 2024-07-20 10:31 | History & Physical Report ---
Date of Service July 20, 2024 Assessment & Plan (1) Pneumonia: (2) COVID-19: (3) Encephalopathy due to infection: (4) Parkinson's disease: (5) B12 deficiency: (6) BPH loc w urin obs/LUTS: (7) Dyslipidemia: Plan This is a 74 y/o male with tremor-predominant Parkinson disease, hx multiple CVAs, B12 deficiency, BPH, dyslipidemia, and other history as outlined below who was sent to the ED today from [facility] due to confusion. Work-up in the ED was significant for positive swab for COVID, elevated procalcitonin, and chest x-ray concerning for bilateral LL pneumonia. #COVID-19 infection #Bilateral pneumonia #Possible severe sepsis #Encephalopathy due to infection - Admit to med telemetry - COVID isolation precautions - Not hypoxic so dexamethasone not indicated - Start remdesivir - monitor LFTs - Sputum culture - Empiric antibiotic coverage due to elevated procal - continue Zosyn, hold vanco pending MRSA swab - IVF hydration due to recent N/V, elevated lactate - received 500 ml in the ED as bolus, will continue at 125 ml/hr - Incentive spirometry, flutter valve, guaifenesin BID #Parkinson disease - Continue Sinemet as taking outpatient - Aspiration precautions, fall precautions #Dyslipidemia - Holding statin for now #BPH - Continue tamsulosin #B12 deficiency - Continue supplementation Pt seen and reviewed with collaborating physician, Dr. Floyd. Plan of care discussed and as outlined above. Code status: full code DVT prophylaxis: subQ heparin Eventual PT/OT once more stable Catrachita Beavers PA-C History of Present Illness Chief Complaint: confusion Primary Care Provider: Melvin Tang This is a 74 y/o male with tremor-predominant Parkinson disease, hx multiple CVAs, B12 deficiency, BPH, dyslipidemia, and other history as outlined below who was [facility] ED [facility]. History from the patient is somewhat limited but he does report issues with nausea and small amount of vomiting since yesterday. However, he states that he has been able to eat okay. He denies significant cough or shortness of breath. Pt reportedly was more confused and weak this morning than his baseline, which is what caused staff to send him to the ED for evaluation. In the ED, his main complaint at present is nausea and feeling weak. He denies significant pain. Allergies Allergy/AdvReac Type Severity Reaction Status Date / Time No Known Allergies Allergy Verified 07/20/24 10:34 Home Medications Medication Instructions Recorded Confirmed Type aspirin 81 mg tablet,delayed 81 mg PO QAM 05/22/23 07/20/24 History release carbidopa 25 mg-levodopa 100 mg 1 tab PO QID 05/22/23 07/20/24 History tablet duloxetine 30 mg capsule,delayed 30 mg PO QAM 05/22/23 07/20/24 History release meclizine 25 mg chewable tablet 25 mg PO BID PRN Dizziness 05/22/23 07/20/24 History polyethylene glycol 3350 17 gram 17 g PO QAM 05/22/23 07/20/24 History oral powder packet (Miralax) pravastatin 20 mg tablet 20 mg PO QPM 05/22/23 07/20/24 History tamsulosin 0.4 mg capsule 0.4 mg PO BID 05/22/23 07/20/24 History carbidopa ER 25 mg-levodopa 100 mg 1 tab PO HS 01/19/24 07/20/24 History tablet,extended release cyanocobalamin (vitamin B-12) 1,000 mcg PO QAM 01/19/24 07/20/24 History 1,000 mcg tablet (Vitamin B-12) midodrine 2.5 mg tablet 2.5 mg PO TID 07/20/24 07/20/24 History Past Med/Surg History Problem List (Updated 07/20/24 @ 13:33 by Alexa Beavers PA-C) Encephalopathy due to infection Pneumonia (Acute) COVID-19 (Acute) Ambulatory dysfunction Medical History (Updated 07/20/24 @ 13:33 by Alexa Beavers PA-C) B12 deficiency BPH loc w urin obs/LUTS Lumbar degenerative disc disease Dyslipidemia Irritable bowel syndrome with constipation CVA (cerebral vascular accident) Parkinson's disease Surgical History (Updated 07/20/24 @ 10:28 by Alexa Beavers PA-C) History of tonsillectomy and adenoidectomy History of foot surgery History of cataract surgery right 10/10/21 left 09/26/21 Social History Smoking Status: Former smoker Hx Alcohol Use: No Hx Substance Use: No Preferred Language: Swedish Communication Ability: Effective Speed Reading Teacher Required: No Beliefs That Will Affect Care: None Current Living Situation: Other Current Living Situation Comment: Independent Living Feels Safe at Home: Yes Assistive Devices: Walker Review of Systems Review of Systems: Limited due to confusion Physical Exam Physical Exam: General: awake, alert, NAD, flat affect HEENT: no scleral icterus, slightly dry oral mucosa Neck: supple, trachea midline Heart: RRR Lungs: diminished at bases bilaterally Abdomen: soft, mildly distended, +BS Extremities: no pedal edema Neurologic: difficulty with recalling details such as where he lives, date but does know that he is in [place] and last week was [place], slow speech and responses, moving all extremities Skin: warm, dry, no jaundice Results & Data Results & Data Vital Signs (Past 12 Hours) Vital Signs Temp Pulse Pulse Resp BP BP Pulse Ox 07/20/24 10:03 87 21 97 07/20/24 10:00 121/88 07/20/24 10:00 121/88 07/20/24 10:00 121/88 07/20/24 09:57 88 21 96 07/20/24 09:56 88 18 163/93 H 96 07/20/24 09:36 163/93 H 07/20/24 09:15 100 H 37 H 07/20/24 09:15 87 18 134/77 97 07/20/24 09:04 88 14 134/77 92 07/20/24 09:00 88 21 93 07/20/24 09:00 134/77 07/20/24 09:00 134/77 07/20/24 08:55 18 07/20/24 08:55 90 18 91 07/20/24 08:54 90 23 94 07/20/24 08:43 87 07/20/24 08:42 86 21 96 07/20/24 08:33 91 H 24 97 07/20/24 08:30 145/107 H 07/20/24 08:09 18 96 07/20/24 08:09 07/20/24 08:08 36.6 C 84 18 145/107 H 96 O2 Del Method 07/20/24 10:03 07/20/24 10:00 07/20/24 10:00 07/20/24 10:00 07/20/24 09:57 12/30/24 09:56 Room Air 07/20/24 09:36 07/20/24 09:15 07/20/24 09:15 07/20/24 09:04 Room Air 07/20/24 09:00 07/20/24 09:00 07/20/24 09:00 07/20/24 08:55 07/20/24 08:55 Room Air 07/20/24 08:54 07/20/24 08:43 07/20/24 08:42 07/20/24 08:33 07/20/24 08:30 07/20/24 08:09 Room Air 07/20/24 08:09 Room Air 07/20/24 08:08 Room Air Laboratory Results Lab Results 07/20/24 07/20/24 07/20/24 Range/Units 08:20 08:50 08:59 WBC 8.26 (4.8-10.8) K/ul RBC 4.79 (4.70-6.10) M/uL Hgb 15.2 (14.0-18.0) g/dl Hct 45.3 (42.0-52.0) % MCV 94.6 (80.0-100.0) fL MCH 31.7 (25.0-34.0) pg MCHC 33.6 (32.0-36.0) g/dL RDW Std Deviation 44.0 (36.4-46.3) fL RDW Coeff of Maria Isabel 12.6 (11.5-14.5) % Plt Count 179 (130-400) K/uL MPV 10.9 (9.4-12.4) fL Immature Gran % (Auto) 0.4 % Neut % (Auto) 91.0 % Lymph % (Auto) 2.7 % [place] % (Auto) 5.6 % Eos % (Auto) 0.1 % Baso % (Auto) 0.2 % Neut # (Auto) 7.52 H (1.40-6.50) K/uL Lymph # (Auto) 0.22 L (1.20-3.40) K/uL [place] # (Auto) 0.46 (0.11-0.59) K/uL Eos # (Auto) 0.01 (0.00-0.50) K/uL Baso # (Auto) 0.02 (0.00-0.20) K/uL Immature Gran # (Auto) 0.03 (0.01-0.20) K/uL PT 11.7 (9.0-12.0) Seconds INR 1.1 (0.9-1.1) APTT 27 (21-31) Seconds PTT Ratio 1.0 VBG pH 7.40 (7.36-7.41) VBG pCO2 45 (38-50) mmHg VBG pO2 28 mmHg VBG HCO3 28 mmol/L VBG O2 Saturation < 60.0 % VBG Base Excess 2.5 mEq/L Sodium 143 (136-145) mmol/L Potassium 4.1 (3.5-5.1) mmol/L Chloride 107 (98-107) mmol/L Carbon Dioxide 28 (21-32) mmol/L Anion Gap 8 (3-11) BUN 33 H (6-23) mg/dl Creatinine 1.04 (0.6-1.4) mg/dl Est Cr Clr Drug Dosing 62.4 ml/min eGFR 74.42 BUN/Creatinine Ratio 31.7 H (10-20) Glucose 107 H (70-99(Fasting)) mg/dl Lactate 2.2 H* (0.4-2.0) mmol/L Calcium 8.8 (8.6-10.3) mg/dl Magnesium 2.0 (1.7-2.4) mg/dl Total Bilirubin 1.0 (0.2-1.0) mg/dl Direct Bilirubin 0.1 (0-0.2) mg/dl AST 12 L (13-39) U/L ALT 12 (7-52) U/L Alkaline Phosphatase 66 (34-104) U/L Troponin I High Sens 5.0 (0-20) pg/ml Total Protein 7.4 (6.0-8.3) gm/dl Albumin 4.2 (3.4-5.0) gm/dl Procalcitonin 1.08 H (0-0.5) ng/ml Urine Color Urine Appearance (Clear) Urine pH (4.5-7.5) Ur Specific [place] (1.000-1.030) Urine Protein (Negative) Urine Glucose (UA) (Negative) Urine Ketones (Negative) Urine Blood (Negative) Urine Nitrite (Negative) Urine Bilirubin (Negative) Urine Urobilinogen (Negative) Ur Leukocyte Esterase (Negative) Urine WBC (Auto) (0-5) /hpf Urine RBC (Auto) (0-2) /hpf U Hyaline Cast (Auto) (0-2) /lpf U Epithel Cells (Auto) (0-2) /hpf Urine Bacteria (Auto) (None Seen) SARS-CoV-2 (PCR) POSITIVE A (Negative) Influenza Type A (PCR) Negative (Neg) Influenza Type B (PCR) Negative (Neg) RSV (RT-PCR) Negative (Neg) 07/20/24 Range/Units 09:00 WBC (4.8-10.8) K/ul RBC (4.70-6.10) M/uL Hgb (14.0-18.0) g/dl Hct (42.0-52.0) % MCV (80.0-100.0) fL MCH (25.0-34.0) pg MCHC (32.0-36.0) g/dL RDW Std Deviation (36.4-46.3) fL RDW Coeff of Maria Isabel (11.5-14.5) % Plt Count (130-400) K/uL MPV (9.4-12.4) fL Immature Gran % (Auto) % Neut % (Auto) % Lymph % (Auto) % [place] % (Auto) % Eos % (Auto) % Baso % (Auto) % Neut # (Auto) (1.40-6.50) K/uL Lymph # (Auto) (1.20-3.40) K/uL [place] # (Auto) (0.11-0.59) K/uL Eos # (Auto) (0.00-0.50) K/uL Baso # (Auto) (0.00-0.20) K/uL Immature Gran # (Auto) (0.01-0.20) K/uL PT (9.0-12.0) Seconds INR (0.9-1.1) APTT (21-31) Seconds PTT Ratio VBG pH (7.36-7.41) VBG pCO2 (38-50) mmHg VBG pO2 mmHg VBG HCO3 mmol/L VBG O2 Saturation % VBG Base Excess mEq/L Sodium (136-145) mmol/L Potassium (3.5-5.1) mmol/L Chloride (98-107) mmol/L Carbon Dioxide (21-32) mmol/L Anion Gap (3-11) BUN (6-23) mg/dl Creatinine (0.6-1.4) mg/dl Est Cr Clr Drug Dosing ml/min eGFR BUN/Creatinine Ratio (10-20) Glucose (70-99(Fasting)) mg/dl Lactate (0.4-2.0) mmol/L Calcium (8.6-10.3) mg/dl Magnesium (1.7-2.4) mg/dl Total Bilirubin (0.2-1.0) mg/dl Direct Bilirubin (0-0.2) mg/dl AST (13-39) U/L ALT (7-52) U/L Alkaline Phosphatase (34-104) U/L Troponin I High Sens (0-20) pg/ml Total Protein (6.0-8.3) gm/dl Albumin (3.4-5.0) gm/dl Procalcitonin (0-0.5) ng/ml Urine Color Yellow Urine Appearance Clear (Clear) Urine pH 5.0 (4.5-7.5) Ur Specific [place] 1.033 H (1.000-1.030) Urine Protein Trace H (Negative) Urine Glucose (UA) Negative (Negative) Urine Ketones 1+ H (Negative) Urine Blood Negative (Negative) Urine Nitrite Negative (Negative) Urine Bilirubin Negative (Negative) Urine Urobilinogen Negative (Negative) Ur Leukocyte Esterase Negative (Negative) Urine WBC (Auto) 0-5 (0-5) /hpf Urine RBC (Auto) 0-2 (0-2) /hpf U Hyaline Cast (Auto) 3-5 H (0-2) /lpf U Epithel Cells (Auto) 0-2 (0-2) /hpf Urine Bacteria (Auto) None Seen (None Seen) SARS-CoV-2 (PCR) (Negative) Influenza Type A (PCR) (Neg) Influenza Type B (PCR) (Neg) RSV (RT-PCR) (Neg) Diagnostic Findings Chest X-Ray 07/20/24 08:43 XR chest 1V portable CLINICAL HISTORY: Sepsis TECHNIQUE: Single frontal radiograph of the chest was obtained. Comparison: Comparison is made to chest radiograph 05/22/2023 FINDINGS: No lines and tubes are seen. The cardiomediastinal silhouette is normal. Faint bibasilar airspace opacities are seen. No evidence of pleural effusion or pneumothorax. IMPRESSION: Bilateral lower lung predominant airspace opacities which may represent atelectasis, pneumonia, and/or aspiration. ACT 112: Negative or not required by law. Electronically signed by: Foster Miguel M.D. 07/20/2024 9:[address] 07/20/24 08:44 CT head/brain wo con CLINICAL HISTORY: ams Technique: Contiguous axial CT images of the head were acquired from the base of the skull to the vertex without intravenous contrast administration. Images were viewed in brain, subdural and bone windows. Automated dose lowering techniques and/or adjustment according to patient size were utilized for this exam. Comparison: Comparison is made to CT head 01/19/2024 Findings: Areas of decreased attenuation are present in the periventricular and subcortical white matter bilaterally consistent with small vessel ischemic disease. Generalized cerebral atrophy with commensurate enlargement of the ventricles, sulci, and cisterns is also present. There is no acute intracranial hemorrhage or evidence of acute territorial infarction. No shift of the midline structures, mass effect, or extra-axial abnormalities are shown. Atherosclerotic calcifications are present in the intracranial segments of the internal carotid arteries. Focal encephalomalacia in the right internal capsule is unchanged. Imaged portions of the paranasal sinuses and mastoid air cells are clear. The orbits appear normal. There are no acute fractures of the calvaria or scalp swelling. Impression: No acute intracranial hemorrhage, no evidence of acute territorial infarction or other acute intracranial disease process. ACT 112: Negative or not required by law. Electronically signed by: Foster Miguel M.D. 07/20/2024 9:41 AM Medications Administered Sodium Chloride (Nss) 500 mls @ 125 mls/hr IV .Q4H SOY Stop: 07/20/24 13:29 Last Admin: 07/20/24 09:45 Dose: 125 mls/hr Documented By: JAVI Piperacillin Sod/Tazobactam Sod (Zosyn) 4.5 gm in 120 mls @ 240 mls/hr IV NOW ONE Stop: 07/20/24 10:37 Last Admin: 07/20/24 10:19 Dose: 240 mls/hr Documented By: JAVI Discontinued Medications Sodium Chloride (Nss) 500 mls @ 999 mls/hr IV .Q31M ONE Stop: 07/20/24 09:58 Last Admin: 07/20/24 10:21 Dose: 999 mls/hr Documented By: JAVI Supervising Physician Co-Signing Physician Notes Attending Addendum: Case reviewed with the advanced practitioner. I have personally performed a history and physical examination on the patient. I have reviewed the advanced practitioner's documentation on the date of service referenced in note, and I agree with, and take responsibility for the plan of care. please refer to her notes for full details patient seen and examined, records reviewed by myself as well on exam, patient seen resting in bed, comfortable pleasantly confused states he feels ok denies shortness of breath, has occasional cough no chest pain no other symptoms VS noted and reviewed oriented x 1-2, not in distress, speaks in sentences with no effort nor accessory muscle use normal rate, regular rhythm, no murmurs (+) mild rhonchi BL, no wheezing non distended, soft, nontender no bipedal edema, erythema, warmth no neuro deficits all labs, imaging noted and reviewed ASSESSMENT AND PLAN> POSSIBLE SEVERE SEPSIS SECONDARY TO COVID 19 PNEUMONIA POSSIBLE BACTERIAL SUPERINFECTION POSSIBLE ASPIRATION COMPONENT FROM EMESIS lactic acid 2.2, given NSS, ff up repeat l.a. on room air Remdesevir IV Levalbuterol, hypertonic saline Incentive spirometer, Flutter valve, Mucinex sputum, blood cultures, complete biofire panel, MRSA Swab IV Zosyn + Azithro ENCEPHALOPATHY UNDERYLING DEMENTIA secondary to above CT head: negative for acute process monitor other diagnoses and plan of care as per advanced practitioner's notes Hoang Floyd MD (1) Pneumonia Laterality: unspecified laterality Lung location: unspecified part of lung Pneumonia type: due to unspecified organism Qualified Code(s): J18.9 - Pneumonia, unspecified organism (4) Parkinson's disease Dyskinesia presence: unspecified whether dyskinesia Fluctuating ma nifestations: unspecified whether manifestations fluctuate Qualified Code(s): G20.A1 - Parkinson's disease without dyskinesia, without mention of fluctuations
--- NOTE | 2024-07-20 10:52 | Electrocardiogram Report ---
Test Reason : Blood Pressure : */* mmHG Vent. Rate : 88 BPM Atrial Rate : 88 BPM P-R Int : 144 ms QRS Dur : 78 ms QT Int : 362 ms P-R-T Axes : 54 -17 58 degrees QTcB Int : 438 ms Sinus rhythm with occasional Premature ventricular complexes Septal infarct , age undetermined Abnormal ECG When compared with ECG of 19-Jan-2024 12:18, Premature ventricular complexes are now Present Confirmed by Dale Song ([id number]) on 07/20/2024 10:51:55 AM Referred By: Confirmed By: Dale Song
[2024-07-20] MEDS: VANCOMYCIN HCL 1,500 MG in SODIUM CHLORIDE 0.9% 500 ML IV ONE (11:11)
[2024-07-20 13:13] LABS: Adenovirus PCR Not Detected (NotDetected); Bordetella parapertussis PCR Not Detected (NotDetected); Bordetella pertussis PCR Not Detected (NotDetected); Chlamydia pneumoniae PCR Not Detected (NotDetected); Coronavirus 229E PCR Not Detected (NotDetected); Coronavirus CoV-2 (COVID19)PCR DETECTED (NotDetected); Coronavirus HKU1 PCR Not Detected (NotDetected); Coronavirus NL63 PCR Not Detected (NotDetected); Coronavirus OC43PCR Not Detected (NotDetected); Human Metapneumovirus PCR Not Detected (NotDetected); Influenza A PCR Not Detected (NotDetected); Influenza B PCR Not Detected (NotDetected); Mycoplasma pneumoniae PCR Not Detected (NotDetected); Parainfluenza Virus 1 PCR Not Detected (NotDetected); Parainfluenza Virus 2 PCR Not Detected (NotDetected); Parainfluenza Virus 3 PCR Not Detected (NotDetected); Parainfluenza Virus 4 PCR Not Detected (NotDetected); Respiratory Syncytial VirusPCR Not Detected (NotDetected); Rhinovirus/Enterovirus PCR Not Detected (NotDetected)
[2024-07-20] MEDS ORDERED: MECLIZINE HCL 25 MG TAB PO PRN (13:21)
--- NOTE | 2024-07-20 13:50 | Pharmacy Report ---
Pharmacy PK ABX Note - Date of Service July 20, 2024 - Assessment and Plan Assessment 74 year old M receiving Vancomycin and Zosyn for treatment of possible pulmonary infection. * Day #1 of antimicrobial therapy. * Labs/Vitals: Afebrile. No leukocytosis. Lactate elevated at 2.2, repeat 1.7. Procal 1.08. SCr 1.04. * Micro: Blood cultures pending. MRSA nasal swab pending. Positive for COVID 19 on Remdesivir, no steroids. Plan Vancomycin * Loading dose: 1500 mg IV x 1 * Maintenance dose: 750 mg IV every 12 hours * Regimen is predicted to achieve target AUC/ORTEGA of 400-600 mg/L.hr * Random level ordered for: 07/22/24 Zosyn * 4.5 g IV every 8 hours Remdesivir * 200 mg IV on day 1 followed by 100 mg IV on days 2-5 Pharmacy will continue to follow and will adjust dose/frequency as necessary. Thank you. Pharmacy has transitioned to AUC monitoring for vancomycin. AUC/ORTEGA is the preferred PK/PD target and is associated with decreased risk of nephrotoxicity compared to traditional trough targets.
[2024-07-20] MEDS: REMDESIVIR 200 MG in SODIUM CHLORIDE 0.9% 210 ML IV ONE (13:55)
[2024-07-20] MEDS: CARBIDOPA/LEVODOPA 25/100MG TAB PO SCH (15:23)
[2024-07-20] MEDS: SODIUM CHLORIDE 0.9% 1,000 ML IV SCH (15:23)
[2024-07-20] MEDS: MIDODRINE HCL 2.5 MG TAB PO SCH (15:23)
[2024-07-20] MEDS: HEPARIN SOD 5,000 UNIT/0.5 ML VIAL SQ SCH (16:11)
[2024-07-20] MEDS: PIPERACILLIN/TAZOBACTAM 4.5 GM/100 ML BAG IV SCH (16:33)
[2024-07-20] MEDS ORDERED: INFLUENZA VACC TS2024-25(65y+)/PF (IIV3) 0.5mL Syr IM ONE (18:48)
[2024-07-20] MEDS: guaiFENesin 600 MG TABCR PO SCH (21:55)
[2024-07-20] MEDS: TAMSULOSIN HCL 0.4 MG CAP PO SCH (21:55)
[2024-07-20] MEDS ORDERED: VANCOMYCIN 750 MG in SODIUM CHLORIDE 0.9% 250 ML IV SCH (22:00)
[2024-07-20] MEDS: CARBIDOPA/LEVODOPA 25/100MG EXT REL TAB PO SCH (23:54)
[2024-07-21 07:21] LABS: Basophils # (auto) 0.01 K/uL (0.00-0.20); Basophils % (auto) 0.2 %; Eosinophils # (auto) 0.13 K/uL (0.00-0.50); Eosinophils % (auto) 2.5 %; Hemoglobin 12.1 g/dl (14.0-18.0); Immature Granulocytes # (auto) 0.01 K/uL (0.01-0.20); Immature Granulocytes % (auto) 0.2 %; Lymphocytes # (auto) 0.61 K/uL (1.20-3.40); Lymphocytes % (auto) 11.6 %; Mean Corpuscular Hemoglobin 32.1 pg (25.0-34.0); Mean Corpuscular Hgb Conc 33.6 g/dL (32.0-36.0); Mean Corpuscular Volume 95.5 fL (80.0-100.0); Monocytes # (auto) 0.73 K/uL (0.11-0.59); Monocytes % (auto) 13.8 %; Neutrophils # (auto) 3.79 K/uL (1.40-6.50); Neutrophils % (auto) 71.7 %; Platelet Count 130 K/uL (130-400); RDW Coefficient of Variation 12.8 % (11.5-14.5); RDW Standard Deviation 44.3 fL (36.4-46.3); Red Blood Count 3.77 M/uL (4.70-6.10); White Blood Count 5.28 K/ul (4.8-10.8)
[2024-07-21 07:46] LABS: BUN Creatinine Ratio 27.4 (10-20); Bilirubin Direct 0.2 mg/dl (0-0.2); Calcium 7.5 mg/dl (8.6-10.3); Creatinine Clr Calc Pharmacy 77.2 ml/min; Potassium 3.5 mmol/L (3.5-5.1); Total Protein 5.3 gm/dl (6.0-8.3)
[2024-07-21] MEDS: ASPIRIN 81 MG ECTAB PO SCH (07:48)
[2024-07-21] MEDS: CYANOCOBALAMIN (B-12) 500 MCG TABLET PO SCH (07:48)
[2024-07-21] MEDS: DULoxetine HCL 30 MG CAP PO SCH (07:48)
[2024-07-21] MEDS: REMDESIVIR 100 MG in SODIUM CHLORIDE 0.9% 230 ML IV SCH (12:23)
--- NOTE | 2024-07-21 13:00 | Hospitalist Progress Note ---
Date of Service July 21, 2024 Assessment & Plan (1) Pneumonia due to COVID-19 virus: (2) Encephalopathy due to COVID-19 virus: (3) Parkinson's disease: (4) BPH loc w urin obs/LUTS: (5) Dyslipidemia: Plan Patient with acute metabolic encephalopathy due to COVID-19 infection. Some evidence of COVID-pneumonia on imaging, patient is not hypoxic and does not have any respiratory distress. Continue remdesivir, will recommend 3-day course at minimum to prevent severe disease. Would not need to continue more than 3 days if he is not having any oxygen requirements Continue other medical care Therapies Case management to coordinate return to [facility] Phone update to patient's son Cresencio. Admission and Anticipated Discharge Date Admission Date: July 20, 2024 Subjective Patient's mentation seems to be improved. Definitely realizes that COVID has exacerbated his Parkinson symptoms Physical Exam Physical Exam: Constitutional: Alert, nontoxic, no distress HEENT: Mucous membranes moist. Lungs: Decreased breath sounds CV: S1-S2, regular Abdomen: Soft, nontender, nondistended Extremities: No significant edema Neuro: Parkinson's tremor, Parkinson's rigidity Psych: Cooperative, normal mood Results & Data Results & Data Vital Signs (Past 12 Hours) Vital Signs Temp Pulse Pulse Pulse Resp BP Pulse Ox 07/21/24 10:53 36.4 C L 73 18 127/74 94 07/21/24 09:42 07/21/24 07:54 36.6 C 86 18 136/76 95 07/21/24 07:15 75 07/21/24 02:20 37.6 C H 78 18 117/73 92 O2 Del Method 07/21/24 10:53 Room Air 07/21/24 09:42 Room Air 07/21/24 07:54 Room Air 07/21/24 07:15 07/21/24 02:20 Room Air Diagnostic Findings Reviewed imaging, laboratory and diagnostic studies. Pertinent findings as below. Blood cultures no growth to date WBCs 5.2 Hemoglobin 12.1 LFTs stable (3) Parkinson's disease Dyskinesia presence: unspecified whether dyskinesia Fluctuating manifestations: unspecified whether manifestations fluctuate Qualified Code(s): G20.A1 - Parkinson's disease without dyskinesia, without mention of fluctuations
[2024-07-21] MEDS: ACETAMINOPHEN 325 MG TAB PO PRN (21:43)
[2024-07-22 09:08] LABS: Albumin Level 3.1 gm/dl (3.4-5.0); Bilirubin Direct 0.2 mg/dl (0-0.2); Bilirubin,Total 0.7 mg/dl (0.2-1.0); Total Protein 5.6 gm/dl (6.0-8.3)
--- NOTE | 2024-07-22 10:06 | Hospitalist Progress Note ---
Date of Service July 22, 2024 Assessment & Plan (1) Pneumonia due to COVID-19 virus: (2) Encephalopathy due to COVID-19 virus: (3) Parkinson's disease: (4) BPH loc w urin obs/LUTS: (5) Dyslipidemia: Plan This is a 74 y/o male with tremor-predominant Parkinson disease, hx multiple CVAs, B12 deficiency, BPH, dyslipidemia, and other history as outlined below who was sent to the ED today from [facility] due to confusion. Work-up in the ED was significant for positive swab for COVID, elevated procalcitonin, and chest x-ray concerning for bilateral LL pneumonia. #COVID-19 infection #Bilateral pneumonia #Possible severe sepsis #Encephalopathy due to infection - Admitted to med telemetry - COVID isolation precautions - Not hypoxic so dexamethasone not indicated - Started remdesivir - monitor LFTs - procalcitonin 1 - Sputum culture - Empiric antibiotic coverage due to elevated procal - continue Zosyn - IVF hydration due to recent N/V, elevated lactate - received 500 ml in the ED as bolus, continued at 125 ml/hr, now stopped - Incentive spirometry, flutter valve, guaifenesin BID #Parkinson disease - Continue Sinemet as taking outpatient - Aspiration precautions, fall precautions #Dyslipidemia - Holding statin for now #BPH - Continue tamsulosin #B12 deficiency - Continue supplementation Code status: full code DVT prophylaxis: subQ heparin Eventual PT/OT ordered Dispo: Case management to coordinate return to [facility] Yesterday by previous hospitalist - Phone update to patient's son Cresencio. Admission and Anticipated Discharge Date Admission Date: July 20, 2024 Subjective Pt seen in follow up of covid, hx of Parkinson's, ams 2/2 to that Patient's mentation seems to be improved. Definitely realizes that COVID has exacerbated his Parkinson symptoms Currently sitting up in bed in NAD denies any fever, chills, chest pain or shortness of breath, + cough Review of Systems Review of Systems: All systems reviewed & are unremarkable except as noted in Subjective Physical Exam Physical Exam: Constitutional: WD/WN elderly M in NAD HEENT: NC/AT. Mucous membranes moist. Lungs: Decreased breath sounds CV: S1-S2, regular Abdomen: Soft, nontender, nondistended Extremities: No significant edema Neuro: Parkinson's tremor, Parkinson's rigidity Psych: Cooperative, normal mood Results & Data Results & Data Vital Signs (Past 12 Hours) Vital Signs Temp Pulse Resp BP Pulse Ox Pulse Ox O2 Del Method 07/22/24 07:59 36.5 C 80 20 134/80 92 Room Air 07/22/24 05:32 94 07/21/24 22:21 36.9 C 75 18 126/78 92 Room Air O2 Del Method 07/22/24 07:59 07/22/24 05:32 Room Air 07/21/24 22:21 Laboratory Results 07/22/24 Range/Units 08:02 Total Bilirubin 0.7 (0.2-1.0) mg/dl Direct Bilirubin 0.2 (0-0.2) mg/dl AST 14 (13-39) U/L ALT 3 L (7-52) U/L Alkaline Phosphatase 45 (34-104) U/L Total Protein 5.6 L (6.0-8.3) gm/dl Albumin 3.1 L (3.4-5.0) gm/dl Medications Administered Current Inpatient Medications Acetaminophen (Acetaminophen 325 Mg Tab) 650 mg PO Q4H PRN PRN Reason: Pain or Fever Stop: 08/19/24 13:15 Last Admin: 07/21/24 21:43 Dose: 650 mg Aspirin (Aspirin 81 Mg Ectab) [facility] [place] Stop: 08/20/24 08:59 Last Admin: 07/22/24 09:08 Dose: 81 mg Carbidopa/Levodopa (Carbidopa/Levodopa 25/100mg Ext Rel Tab) 1 tab PO HS [facility] Stop: 08/19/24 20:59 Last Admin: 07/21/24 21:45 Dose: 1 tab Carbidopa/Levodopa (Carbidopa/Levodopa 25/100mg Tab) 1 tab PO QID [facility] Stop: 08/19/24 13:15 Last Admin: 07/22/24 09:08 Dose: 1 tab Cyanocobalamin (Cyanocobalamin (B-12) 500 Mcg Tablet) 1,000 mcg PO QAM [facility] Stop: 08/20/24 08:59 Last Admin: 07/22/24 09:08 Dose: 1,000 mcg Duloxetine HCl (Duloxetine Hcl 30 Mg Cap) 30 [facility] [place] Stop: 08/20/24 08:59 Last Admin: 07/22/24 09:09 Dose: 30 mg Guaifenesin (Guaifenesin 600 Mg Tabcr) 600 mg PO Q12 [facility] Stop: 08/19/24 20:59 Last Admin: 07/22/24 08:20 Dose: 600 mg Heparin Sodium (Porcine) (Heparin Sod 5,000 Unit/0.5 Ml Vial) 5,000 units SQ Q8 [facility] Stop: 08/19/24 13:59 Last Admin: 07/22/24 06:05 Dose: 5,000 units Remdesivir 100 mg/ Sodium (Chloride) 250 mls @ 250 mls/hr IV Q24H [facility] Stop: 07/24/24 12:59 Last Infusion: 07/21/24 14:15 Dose: Infused Meclizine HCl (Meclizine Hcl 25 Mg Tab) 25 mg PO BID PRN PRN Reason: Dizziness Stop: 08/19/24 13:20 Midodrine (Midodrine Hcl 2.5 Mg Tab) 2.5 mg PO TID [facility] Stop: 08/19/24 13:59 Last Admin: 07/22/24 08:21 Dose: 2.5 mg Tamsulosin HCl (Tamsulosin Hcl 0.4 Mg Cap) 0.4 mg PO BID [facility] Stop: 08/19/24 20:59 Last Admin: 07/22/24 08:20 Dose: 0.4 mg (3) Parkinson's disease Dyskinesia presence: unspecified whether dyskinesia Fluctuating manifestations: unspecified whether manifestations fluctuate Qualified Code(s): G20.A1 - Parkinson's disease without dyskinesia, without mention of fluctuations
[2024-07-22 10:36] LABS: Hematocrit (blood only) 38.1 % (42.0-52.0); Hemoglobin 12.9 g/dl (14.0-18.0); Mean Corpuscular Hemoglobin 31.9 pg (25.0-34.0); Mean Corpuscular Hgb Conc 33.9 g/dL (32.0-36.0); Mean Corpuscular Volume 94.3 fL (80.0-100.0); Mean Platelet Volume 11.1 fL (9.4-12.4); Platelet Count 141 K/uL (130-400); RDW Coefficient of Variation 12.6 % (11.5-14.5); RDW Standard Deviation 43.9 fL (36.4-46.3); Red Blood Count 4.04 M/uL (4.70-6.10); White Blood Count 4.48 K/ul (4.8-10.8)
[2024-07-23 08:00] LABS: Hematocrit (blood only) 39.5 % (42.0-52.0); Hemoglobin 13.4 g/dl (14.0-18.0); Mean Corpuscular Hemoglobin 31.4 pg (25.0-34.0); Mean Corpuscular Hgb Conc 33.9 g/dL (32.0-36.0); Mean Corpuscular Volume 92.5 fL (80.0-100.0); Mean Platelet Volume 11.1 fL (9.4-12.4); Platelet Count 154 K/uL (130-400); RDW Coefficient of Variation 12.6 % (11.5-14.5); RDW Standard Deviation 42.6 fL (36.4-46.3); Red Blood Count 4.27 M/uL (4.70-6.10); White Blood Count 4.41 K/ul (4.8-10.8)
[2024-07-23 08:20] LABS: Anion Gap 5 (3-11); BUN Creatinine Ratio 22.1 (10-20); Blood Urea Nitrogen 19 mg/dl (6-23); Carbon Dioxide 28 mmol/L (21-32); Chloride 108 mmol/L (98-107); Creatinine Clr Calc Pharmacy 75.5 ml/min; Glucose 103 mg/dl (70-99(Fasting)); Potassium 3.7 mmol/L (3.5-5.1); Sodium 141 mmol/L (136-145)
[2024-07-23 08:21] LABS: Alanine Aminotransferase < 3 U/L (7-52); Albumin Level 3.2 gm/dl (3.4-5.0); Alkaline Phosphatase 49 U/L (34-104); Aspartate Aminotransferase 14 U/L (13-39); Bilirubin Direct 0.1 mg/dl (0-0.2); Bilirubin,Total 0.6 mg/dl (0.2-1.0); Magnesium 1.9 mg/dl (1.7-2.4); Phosphorus 3.2 mg/dl (2.5-4.9); Total Protein 5.8 gm/dl (6.0-8.3)
--- NOTE | 2024-07-23 12:13 | Hospitalist Progress Note ---
Date of Service July 23, 2024 Assessment & Plan (1) Pneumonia due to COVID-19 virus: (2) Encephalopathy due to COVID-19 virus: (3) Parkinson's disease: (4) BPH loc w urin obs/LUTS: (5) Dyslipidemia: Plan This is a 74 y/o male with tremor-predominant Parkinson disease, hx multiple CVAs, B12 deficiency, BPH, dyslipidemia, and other history as outlined below who was sent to the ED today from [facility] due to confusion. Work-up in the ED was significant for positive swab for COVID, elevated procalcitonin, and chest x-ray concerning for bilateral LL pneumonia. #COVID-19 infection #Bilateral pneumonia #Possible severe sepsis #Encephalopathy due to infection - Admitted to med telemetry - COVID isolation precautions - Not hypoxic so dexamethasone not indicated - Started remdesivir, cont. - monitor LFTs - procalcitonin 1 - Sputum culture - Empiric antibiotic coverage due to elevated procal - continued Zosyn -> switch to augmentin - received IVF hydration initially due to recent N/V, elevated lactate - Incentive spirometry, flutter valve, guaifenesin BID #Parkinson disease - Continue Sinemet as taking outpatient - Aspiration precautions, fall precautions #Dyslipidemia - Holding statin for now #BPH - Continue tamsulosin #B12 deficiency - Continue supplementation Code status: full code DVT prophylaxis: subQ heparin Eventual PT/OT ordered - evals pending Dispo: Case management to coordinate return to [facility] Phone update by previous hospitalist to patient's son Cresencio, 2 days ago. Admission and Anticipated Discharge Date Admission Date: July 20, 2024 Subjective Pt seen in follow up of covid, hx of Parkinson's, ams 2/2 to that Patient's mentation seems to be improved. Definitely realizes that COVID has exacerbated his Parkinson symptoms Currently sitting up in bed in NAD denies any fever, chills, chest pain or shortness of breath, + cough Reports feeling very week. PT/ OT evals pending Review of Systems Review of Systems: All systems reviewed & are unremarkable except as noted in Subjective Physical Exam Physical Exam: Constitutional: WD/WN elderly M in NAD HEENT: NC/AT. Mucous membranes moist. Lungs: Decreased breath sounds CV: S1-S2, regular Abdomen: Soft, nontender, nondistended Extremities: No significant edema Neuro: awake. alert, answers appropriately, Parkinson's tremor, Parkinson's rigidity Psych: Cooperative, normal mood Results & Data Results & Data Vital Signs (Past 12 Hours) Vital Signs Temp Pulse Resp BP Pulse Ox O2 Del Method 07/23/24 09:20 Room Air 07/23/24 07:59 36.4 C L 70 18 136/84 94 Room Air Laboratory Results 07/23/24 Range/Units 06:55 WBC 4.41 L (4.8-10.8) K/ul RBC 4.27 L (4.70-6.10) M/uL Hgb 13.4 L (14.0-18.0) g/dl Hct 39.5 L (42.0-52.0) % MCV 92.5 (80.0-100.0) fL MCH 31.4 (25.0-34.0) pg MCHC 33.9 (32.0-36.0) g/dL RDW Std Deviation 42.6 (36.4-46.3) fL RDW Coeff of Maria Isabel 12.6 (11.5-14.5) % Plt Count 154 (130-400) K/uL MPV 11.1 (9.4-12.4) fL Sodium 141 (136-145) mmol/L Potassium 3.7 (3.5-5.1) mmol/L Chloride 108 H (98-107) mmol/L Carbon Dioxide 28 (21-32) mmol/L Anion Gap 5 (3-11) BUN 19 (6-23) mg/dl Creatinine 0.86 (0.6-1.4) mg/dl Est Cr Clr Drug Dosing 75.5 ml/min eGFR 89.74 BUN/Creatinine Ratio 22.1 H (10-20) Glucose 103 H (70-99(Fasting)) mg/dl Calcium 8.0 L (8.6-10.3) mg/dl Phosphorus 3.2 (2.5-4.9) mg/dl Magnesium 1.9 (1.7-2.4) mg/dl Total Bilirubin 0.6 (0.2-1.0) mg/dl Direct Bilirubin 0.1 (0-0.2) mg/dl AST 14 (13-39) U/L ALT < 3 L (7-52) U/L Alkaline Phosphatase 49 (34-104) U/L Total Protein 5.8 L (6.0-8.3) gm/dl Albumin 3.2 L (3.4-5.0) gm/dl Medications Administered Current Inpatient Medications Acetaminophen (Acetaminophen 325 Mg Tab) 650 mg PO Q4H PRN PRN Reason: Pain or Fever Stop: 08/19/24 13:15 Last Admin: 07/21/24 21:43 Dose: 650 mg Aspirin (Aspirin 81 Mg Ectab) 81 mg PO QAM [facility] Stop: 08/20/24 08:59 Last Admin: 07/23/24 09:20 Dose: 81 mg Carbidopa/Levodopa (Carbidopa/Levodopa 25/100mg Ext Rel Tab) 1 tab PO HS [facility] Stop: 08/19/24 20:59 Last Admin: 07/22/24 20:44 Dose: 1 tab Carbidopa/Levodopa (Carbidopa/Levodopa 25/100mg Tab) 1 tab PO QID [facility] Stop: 08/19/24 13:15 Last Admin: 07/23/24 09:20 Dose: 1 tab Cyanocobalamin (Cyanocobalamin (B-12) 500 Mcg Tablet) 1,000 mcg PO QAM [facility] Stop: 08/20/24 08:59 Last Admin: 07/23/24 09:20 Dose: 1,000 mcg Duloxetine HCl (Duloxetine Hcl 30 Mg Cap) 30 mg PO QAM [facility] Stop: 08/20/24 08:59 Last Admin: 07/23/24 09:20 Dose: 30 mg Guaifenesin (Guaifenesin 600 Mg Tabcr) 600 mg PO Q12 [facility] Stop: 08/19/24 20:59 Last Admin: 07/23/24 09:20 Dose: 600 mg Heparin Sodium (Porcine) (Heparin Sod 5,000 Unit/0.5 Ml Vial) 5,000 units SQ Q8 [facility] Stop: 08/19/24 13:59 Last Admin: 07/23/24 05:39 Dose: 5,000 units Remdesivir 100 mg/ Sodium (Chloride) 250 mls @ 250 mls/hr IV Q24H [facility] Stop: 07/24/24 12:59 Last Infusion: 07/22/24 12:59 Dose: Infused Meclizine HCl (Meclizine Hcl 25 Mg Tab) 25 mg PO BID PRN PRN Reason: Dizziness Stop: 08/19/24 13:20 Midodrine (Midodrine Hcl 2.5 Mg Tab) 2.5 mg PO TID [facility] Stop: 08/19/24 13:59 Last Admin: 07/23/24 09:20 Dose: 2.5 mg Tamsulosin HCl (Tamsulosin Hcl 0.4 Mg Cap) 0.4 mg PO BID [facility] Stop: 08/19/24 20:59 Last Admin: 07/23/24 09:20 Dose: 0.4 mg (3) Parkinson's disease Dyskinesia presence: unspecified whether dyskinesia Fluctuating manifes tations: unspecified whether manifestations fluctuate Qualified Code(s): G20.A1 - Parkinson's disease without dyskinesia, without mention of fluctuations
[2024-07-23] MEDS: ADVANCED PROBIOTIC 625 MG CAPSULE PO SCH (13:53)
[2024-07-23] MEDS: AMOXICILLIN/CLAVULANATE 875 MG TAB PO SCH (17:54)
[2024-07-23] MEDS: POTASSIUM CHLORIDE PWD 20 MEQ PACK PO STA (20:36)
[2024-07-23] MEDS: LORazepam 2 MG/1 ML VIAL IV STA (20:38)
[2024-07-23] MEDS: MAGNESIUM SULFATE / D5W 1 GM/100 ML BAG IV ONE (20:44)
[2024-07-24 07:37] LABS: Hematocrit (blood only) 39.5 % (42.0-52.0); Hemoglobin 13.5 g/dl (14.0-18.0); Mean Corpuscular Hemoglobin 32.1 pg (25.0-34.0); Mean Corpuscular Hgb Conc 34.2 g/dL (32.0-36.0); Mean Corpuscular Volume 93.8 fL (80.0-100.0); Mean Platelet Volume 10.5 fL (9.4-12.4); Platelet Count 165 K/uL (130-400); RDW Coefficient of Variation 12.4 % (11.5-14.5); RDW Standard Deviation 42.9 fL (36.4-46.3); Red Blood Count 4.21 M/uL (4.70-6.10); White Blood Count 4.59 K/ul (4.8-10.8)
[2024-07-24 08:01] LABS: Anion Gap 5 (3-11); BUN Creatinine Ratio 20.7 (10-20); Blood Urea Nitrogen 19 mg/dl (6-23); Calcium 8.1 mg/dl (8.6-10.3); Carbon Dioxide 28 mmol/L (21-32); Chloride 108 mmol/L (98-107); Creatinine Clr Calc Pharmacy 70.5 ml/min; Glucose 95 mg/dl (70-99(Fasting)); Potassium 3.9 mmol/L (3.5-5.1); Sodium 141 mmol/L (136-145)
[2024-07-24 08:02] LABS: Alanine Aminotransferase < 3 U/L (7-52); Albumin Level 3.5 gm/dl (3.4-5.0); Alkaline Phosphatase 48 U/L (34-104); Aspartate Aminotransferase 17 U/L (13-39); Bilirubin Direct 0.2 mg/dl (0-0.2); Bilirubin,Total 0.7 mg/dl (0.2-1.0); Magnesium 2.3 mg/dl (1.7-2.4); Phosphorus 3.3 mg/dl (2.5-4.9); Total Protein 6.2 gm/dl (6.0-8.3)
--- NOTE | 2024-07-24 12:33 | Hospitalist Progress Note ---
Date of Service July 24, 2024 Assessment & Plan (1) Pneumonia due to COVID-19 virus: (2) Encephalopathy due to COVID-19 virus: (3) Parkinson's disease: (4) BPH loc w urin obs/LUTS: (5) Dyslipidemia: Plan This is a 74 y/o male with tremor-predominant Parkinson disease, hx multiple CVAs, B12 deficiency, BPH, dyslipidemia, and other history as outlined below who was sent to the ED today from [facility] due to confusion. Work-up in the ED was significant for positive swab for COVID, elevated procalcitonin, and chest x-ray concerning for bilateral LL pneumonia. #COVID-19 infection #Bilateral pneumonia #Possible severe sepsis #Encephalopathy due to infection - Admitted to med telemetry - COVID isolation precautions - Not hypoxic so dexamethasone not indicated - Started remdesivir, cont. - monitor LFTs - procalcitonin 1 - Sputum culture - Empiric antibiotic coverage due to elevated procal - continued Zosyn -> switched to augmentin - received IVF hydration initially due to recent N/V, elevated lactate - Incentive spirometry, flutter valve, guaifenesin BID #Parkinson disease - Continue Sinemet as taking outpatient - Aspiration precautions, fall precautions #Dyslipidemia - Holding statin for now #BPH - Continue tamsulosin #B12 deficiency - Continue supplementation Code status: full code DVT prophylaxis: subQ heparin Eventual PT/OT ordered - evals pending Dispo: Case management involved - plan to DC [facility] before returning to [facility] Admission and Anticipated Discharge Date Admission Date: July 20, 2024 Subjective Pt seen in follow up of oren, hx of Parkinson's, ams 2/2 to that Patient's mentation seems to be improved. Definitely realizes that OREN has exacerbated his Parkinson symptoms Currently sitting up in bed in [facility], eating breakfast by himself denies any fever, chills, chest pain or shortness of breath Reports feeling very week. PT/ OT recommends rehab - plan for [facility] Discussed w/ RN and CM - no beds today at [facility] - hopefully tmrw Review of Systems Review of Systems: All systems reviewed & are unremarkable except as noted in Subjective Physical Exam Physical Exam: Constitutional: WD/WN elderly M in NAD HEENT: NC/AT. Mucous membranes moist. Lungs: Decreased breath sounds CV: S1-S2, regular Abdomen: Soft, nontender, nondistended Extremities: No significant edema Neuro: awake. alert, answers appropriately, Parkinson's tremor, Parkinson's rigidity Psych: Cooperative, normal mood Results & Data Results & Data Vital Signs (Past 12 Hours) Vital Signs Temp Pulse Resp BP Pulse Ox O2 Del Method 07/24/24 08:05 Room Air 07/24/24 07:59 36.5 C 71 16 157/90 H 96 Room Air Laboratory Results 07/24/24 Range/Units 06:57 WBC 4.59 L (4.8-10.8) K/ul RBC 4.21 L (4.70-6.10) M/uL Hgb 13.5 L (14.0-18.0) g/dl Hct 39.5 L (42.0-52.0) % MCV 93.8 (80.0-100.0) fL MCH 32.1 (25.0-34.0) pg MCHC 34.2 (32.0-36.0) g/dL RDW Std Deviation 42.9 (36.4-46.3) fL RDW Coeff of Maria Isabel 12.4 (11.5-14.5) % Plt Count 165 (130-400) K/uL MPV 10.5 (9.4-12.4) fL Sodium 141 (136-145) mmol/L Potassium 3.9 (3.5-5.1) mmol/L Chloride 108 H (98-107) mmol/L Carbon Dioxide 28 (21-32) mmol/L Anion Gap 5 (3-11) BUN 19 (6-23) mg/dl Creatinine 0.92 (0.6-1.4) mg/dl Est Cr Clr Drug Dosing 70.5 ml/min eGFR 86.21 BUN/Creatinine Ratio 20.7 H (10-20) Glucose 95 (70-99(Fasting)) mg/dl Calcium 8.1 L (8.6-10.3) mg/dl Phosphorus 3.3 (2.5-4.9) mg/dl Magnesium 2.3 (1.7-2.4) mg/dl Total Bilirubin 0.7 (0.2-1.0) mg/dl Direct Bilirubin 0.2 (0-0.2) mg/dl AST 17 (13-39) U/L ALT < 3 L (7-52) U/L Alkaline Phosphatase 48 (34-104) U/L Total Protein 6.2 (6.0-8.3) gm/dl Albumin 3.5 (3.4-5.0) gm/dl Medications Administered Current Inpatient Medications Acetaminophen (Acetaminophen 325 Mg Tab) 650 mg PO Q4H PRN PRN Reason: Pain or Fever Stop: 08/19/24 13:15 Last Admin: 07/21/24 21:43 Dose: 650 mg Amoxicillin/Clavulanate Potassium (Amoxicillin/Clavulanate 875 Mg Tab) 1 tab PO BIDM [facility]; Protocol Stop: 07/28/24 16:59 Last Admin: 07/24/24 08:04 Dose: 1 tab Aspirin (Aspirin 81 Mg Ectab) 81 mg PO [facility] Stop: 08/20/24 08:59 Last Admin: 07/24/24 08:05 Dose: 81 mg Carbidopa/Levodopa (Carbidopa/Levodopa 25/100mg Ext Rel Tab) 1 tab PO HS [facility] Stop: 08/19/24 20:59 Last Admin: 07/23/24 20:22 Dose: 1 tab Carbidopa/Levodopa (Carbidopa/Levodopa 25/100mg Tab) 1 tab PO QID [facility] Stop: 08/19/24 13:15 Last Admin: 07/24/24 08:05 Dose: 1 tab Cyanocobalamin (Cyanocobalamin (B-12) 500 Mcg Tablet) 1,000 mcg PO [facility] Stop: 08/20/24 08:59 Last Admin: 07/24/24 08:05 Dose: 1,000 mcg Duloxetine HCl (Duloxetine Hcl 30 Mg Cap) 30 mg PO [facility] Stop: 08/20/24 08:59 Last Admin: 07/24/24 08:05 Dose: 30 mg Guaifenesin (Guaifenesin 600 Mg Tabcr) 600 mg PO Q12 [facility] Stop: 08/19/24 20:59 Last Admin: 07/24/24 08:06 Dose: 600 mg Heparin Sodium (Porcine) (Heparin Sod 5,000 Unit/0.5 Ml Vial) 5,000 units SQ Q8 [facility] Stop: 08/19/24 13:59 Last Admin: 07/24/24 06:29 Dose: 5,000 units Remdesivir 100 mg/ Sodium (Chloride) 250 mls @ 250 mls/hr IV Q24H [facility] Stop: 07/24/24 12:59 Last Admin: 07/24/24 11:36 Dose: 250 mls/hr Lactobacillus Acidophilus (Advanced Probiotic 625 Mg Capsule) 1,250 mg PO DAILY [facility] Stop: 08/22/24 12:59 Last Admin: 07/24/24 08:04 Dose: 1,250 mg Meclizine HCl (Meclizine Hcl 25 Mg Tab) 25 mg PO BID PRN PRN Reason: Dizziness Stop: 08/19/24 13:20 Midodrine (Midodrine Hcl 2.5 Mg Tab) 2.5 mg PO TID [facility] Stop: 08/19/24 13:59 Last Admin: 07/24/24 08:05 Dose: 2.5 mg Tamsulosin HCl (Tamsulosin Hcl 0.4 Mg Cap) 0.4 mg PO BID [facility] Stop: 08/19/24 20:59 Last Admin: 07/24/24 08:05 Dose: 0.4 mg (3) Parkinson's disease Dyskinesia presence: unspecified whether dyskinesia Fluctuating manifestations: unspecified whether manifestations fluctuate Qualified Code(s): G20.A1 - Parkinson's disease without dyskinesia, without mention of fluctuations
--- NOTE | 2024-07-25 10:26 | Hospitalist Progress Note ---
Date of Service July 25, 2024 Assessment & Plan (1) Pneumonia due to COVID-19 virus: (2) Encephalopathy due to COVID-19 virus: (3) Parkinson's disease: (4) BPH loc w urin obs/LUTS: (5) Dyslipidemia: Plan This is a 74 y/o male with tremor-predominant Parkinson disease, hx multiple CVAs, B12 deficiency, BPH, dyslipidemia, and other history as outlined below who was sent to the ED today from [facility] due to confusion. Work-up in the ED was significant for positive swab for COVID, elevated procalcitonin, and chest x-ray concerning for bilateral LL pneumonia. #COVID-19 infection #Bilateral pneumonia #Possible severe sepsis #Encephalopathy due to infection - Admitted to [facility] telemetry - COVID isolation precautions - Not hypoxic so dexamethasone not indicated - Finished remdesivir - procalcitonin 1 - Sputum culture - Empiric antibiotic coverage due to elevated procal - continued Zosyn -> switched to augmentin - received IVF hydration initially due to recent N/V, elevated lactate - Incentive spirometry, flutter valve, guaifenesin BID #Parkinson disease - Continue Sinemet as taking outpatient - Aspiration precautions, fall precautions #Dyslipidemia - Holding statin for now #BPH - Continue tamsulosin #B12 deficiency - Continue supplementation Code status: full code DVT prophylaxis: subQ heparin PT/OT evals - recommend rehab Dispo: Case management involved - plan to DC to [facility] before returning to [facility] Admission and Anticipated Discharge Date Admission Date: July 20, 2024 Subjective Pt seen in follow up of covid, hx of Parkinson's, ams 2/2 to that Patient's mentation seems to be improved. Definitely realizes that JENNID has exacerbated his Parkinson symptoms Currently sitting up in bed in [facility] denies any fever, chills, chest pain or shortness of breath Reports feeling weak but improved. PT/ OT recommends rehab - plan for [facility] Discussed w/ RN and CM - no beds today at [facility] - hopefully tmrw Finished remdesivir yesterday Review of Systems Review of Systems: All systems reviewed & are unremarkable except as noted in Subjective Physical Exam Physical Exam: Constitutional: WD/WN elderly M in NAD HEENT: NC/AT. Mucous membranes moist. Lungs: Decreased breath sounds CV: S1-S2, regular Abdomen: Soft, nontender, nondistended Extremities: No significant edema Neuro: awake. alert, answers appropriately, Parkinson's tremor, Parkinson's rigidity Psych: Cooperative, normal mood Results & Data Results & Data Vital Signs (Past 12 Hours) Vital Signs Temp Pulse Resp BP O2 Del Method 07/25/24 08:02 36.5 C 75 14 146/87 H Room Air Medications Administered Current Inpatient Medications Acetaminophen (Acetaminophen 325 Mg Tab) 650 mg PO Q4H PRN PRN Reason: Pain or Fever Stop: 08/19/24 13:15 Last Admin: 07/21/24 21:43 Dose: 650 mg Amoxicillin/Clavulanate Potassium (Amoxicillin/Clavulanate 875 Mg Tab) 1 tab PO BIDM [facility]; Protocol Stop: 07/28/24 16:59 Last Admin: 07/25/24 08:08 Dose: 1 tab Aspirin (Aspirin 81 Mg Ectab) [facility] [place]: 08/20/24 08:59 Last Admin: 07/25/24 08:08 Dose: 81 mg Carbidopa/Levodopa (Carbidopa/Levodopa 25/100mg Ext Rel Tab) 1 tab PO HS [facility] Stop: 08/19/24 20:59 Last Admin: 07/24/24 20:08 Dose: 1 tab Carbidopa/Levodopa (Carbidopa/Levodopa 25/100mg Tab) 1 tab PO QID [facility] Stop: 08/19/24 13:15 Last Admin: 07/25/24 08:08 Dose: 1 tab Cyanocobalamin (Cyanocobalamin (B-12) 500 Mcg Tablet) 1,000 mcg [facility] [place] [facility] [place] Stop: 08/20/24 08:59 Last Admin: 07/25/24 08:08 Dose: 1,000 mcg Duloxetine HCl (Duloxetine Hcl 30 Mg Cap) 30 mg [facility] [place] [facility] [place] Stop: 08/20/24 08:59 Last Admin: 07/25/24 08:09 Dose: 30 mg Guaifenesin (Guaifenesin 600 Mg Tabcr) 600 mg PO Q12 [facility] Stop: 08/19/24 20:59 Last Admin: 07/25/24 08:09 Dose: 600 mg Heparin Sodium (Porcine) (Heparin Sod 5,000 Unit/0.5 Ml Vial) 5,000 units SQ Q8 [facility] Stop: 08/19/24 13:59 Last Admin: 07/25/24 05:05 Dose: 5,000 units Lactobacillus Acidophilus (Advanced Probiotic 625 Mg Capsule) 1,250 mg PO DAILY [facility] Stop: 08/22/24 12:59 Last Admin: 07/25/24 08:09 Dose: 1,250 mg Meclizine HCl (Meclizine Hcl 25 Mg Tab) 25 mg PO BID PRN PRN Reason: Dizziness Stop: 08/19/24 13:20 Midodrine (Midodrine Hcl 2.5 Mg Tab) 2.5 mg PO TID [facility] Stop: 08/19/24 13:59 Last Admin: 07/25/24 08:09 Dose: 2.5 mg Tamsulosin HCl (Tamsulosin Hcl 0.4 Mg Cap) 0.4 mg PO BID [facility] Stop: 08/19/24 20:59 Last Admin: 07/25/24 08:10 Dose: 0.4 mg (3) Parkinson's disease Dyskinesia presence: unspecified whether dyskinesia Fluctuating manifestations: unspecified whether manifestations fluctuate Qualified Code(s): G20.A1 - Parkinson's disease without dyskinesia, without mention of fluctuations
--- NOTE | 2024-07-26 11:51 | Hospitalist Progress Note ---
Date of Service July 26, 2024 Assessment & Plan (1) Pneumonia due to COVID-19 virus: (2) Encephalopathy due to COVID-19 virus: (3) Parkinson's disease: (4) BPH loc w urin obs/LUTS: (5) Dyslipidemia: Plan This is a 74 y/o male with tremor-predominant Parkinson disease, hx multiple CVAs, B12 deficiency, BPH, dyslipidemia, and other history as outlined below who was sent to the ED today from [facility] due to confusion. Work-up in the ED was significant for positive swab for COVID, elevated procalcitonin, and chest x-ray concerning for bilateral LL pneumonia. #COVID-19 infection #Bilateral pneumonia #Possible severe sepsis #Encephalopathy due to infection - Admitted to med telemetry - COVID isolation precautions - Not hypoxic so dexamethasone not indicated - Finished remdesivir - procalcitonin 1 - Sputum culture - Empiric antibiotic coverage due to elevated procal - continued Zosyn -> switched to augmentin - received IVF hydration initially due to recent N/V, elevated lactate - Incentive spirometry, flutter valve, guaifenesin BID #Parkinson disease - Continue Sinemet as taking outpatient - Aspiration precautions, fall precautions #Dyslipidemia - Holding statin for now #BPH - Continue tamsulosin #B12 deficiency - Continue supplementation Code status: full code DVT prophylaxis: subQ heparin PT/OT evals - recommend rehab Dispo: Case management involved - plan to DC to [facility] before returning to [facility] Admission and Anticipated Discharge Date Admission Date: July 20, 2024 Subjective Pt seen in follow up of covid, hx of Parkinson's, ams 2/2 to that Patient's mentation seems to be improved. Definitely realizes that GEETHA has exacerbated his Parkinson symptoms Currently sitting up in bed in [facility] denies any fever, chills, chest pain or shortness of breath Reports feeling weak but improved. PT/ OT recommends rehab - plan for [facility] CM involved in DC Finished remdesivir already Review of Systems Review of Systems: All systems reviewed & are unremarkable except as noted in Subjective Physical Exam Physical Exam: Constitutional: WD/WN elderly M in NAD HEENT: NC/AT. Mucous membranes moist. Lungs: Decreased breath sounds CV: S1-S2, regular Abdomen: Soft, nontender, nondistended Extremities: No significant edema Neuro: awake. alert, answers appropriately, Parkinson's tremor, Parkinson's rigidity Psych: Cooperative, normal mood Results & Data Results & Data Vital Signs (Past 12 Hours) Vital Signs Temp Pulse Resp BP Pulse Ox O2 Del Method 07/26/24 08:22 36.6 C 81 17 158/95 H 93 Room Air Medications Administered Current Inpatient Medications Acetaminophen (Acetaminophen 325 Mg Tab) 650 mg PO Q4H PRN PRN Reason: Pain or Fever Stop: 08/19/24 13:15 Last Admin: 07/21/24 21:43 Dose: 650 mg Amoxicillin/Clavulanate Potassium (Amoxicillin/Clavulanate 875 Mg Tab) 1 tab PO BIDM [facility]; Protocol Stop: 07/28/24 16:59 Last Admin: 07/26/24 10:09 Dose: 1 tab Aspirin (Aspirin 81 Mg Ectab) 81 mg PO [facility] Stop: 08/20/24 08:59 Last Admin: 07/26/24 10:09 Dose: 81 mg Carbidopa/Levodopa (Carbidopa/Levodopa 25/100mg Ext Rel Tab) 1 tab PO HS [facility] Stop: 08/19/24 20:59 Last Admin: 07/25/24 19:49 Dose: 1 tab Carbidopa/Levodopa (Carbidopa/Levodopa 25/100mg Tab) 1 tab PO QID [facility] Stop: 08/19/24 13:15 Last Admin: 07/26/24 10:10 Dose: 1 tab Cyanocobalamin (Cyanocobalamin (B-12) 500 Mcg Tablet) 1,000 mcg PO [facility] Stop: 08/20/24 08:59 Last Admin: 07/26/24 10:10 Dose: 1,000 mcg Duloxetine HCl (Duloxetine Hcl 30 Mg Cap) 30 mg PO [facility] Stop: 08/20/24 08:59 Last Admin: 07/26/24 10:10 Dose: 30 mg Guaifenesin (Guaifenesin 600 Mg Tabcr) 600 mg PO Q12 [facility] Stop: 08/19/24 20:59 Last Admin: 07/26/24 10:10 Dose: 600 mg Heparin Sodium (Porcine) (Heparin Sod 5,000 Unit/0.5 Ml Vial) 5,000 units SQ Q8 [facility] Stop: 08/19/24 13:59 Last Admin: 07/26/24 05:11 Dose: 5,000 units Lactobacillus Acidophilus (Advanced Probiotic 625 Mg Capsule) 1,250 mg PO DAILY [facility] Stop: 08/22/24 12:59 Last Admin: 07/26/24 10:10 Dose: 1,250 mg Meclizine HCl (Meclizine Hcl 25 Mg Tab) 25 mg PO BID PRN PRN Reason: Dizziness Stop: 08/19/24 13:20 Midodrine (Midodrine Hcl 2.5 Mg Tab) 2.5 mg PO TID [facility] Stop: 08/19/24 13:59 Last Admin: 07/26/24 10:10 Dose: 2.5 mg Tamsulosin HCl (Tamsulosin Hcl 0.4 Mg Cap) 0.4 mg PO BID [facility] Stop: 08/19/24 20:59 Last Admin: 07/26/24 10:11 Dose: 0.4 mg (3) Parkinson's disease Dyskinesia presence: unspecified whether dyskinesia Fluctuating manifestations: unspecified whether manifestations fluctuate Qualified Code(s): G20.A1 - Parkinson's disease without dyskinesia, without mention of fluctuations
--- NOTE | 2024-07-27 11:50 | Discharge Summary ---
Date of Service July 27, 2024 Admission HPI Per Admitting Provider This is a 74 y/o male with tremor-predominant Parkinson disease, hx multiple CVAs, B12 deficiency, BPH, dyslipidemia, and other history as outlined below who was sent to the ED today from [facility] due to confusion. History from the patient is somewhat limited but he does report issues with nausea and small amount of vomiting since yesterday. However, he states that he has been able to eat okay. He denies significant cough or shortness of breath. Pt reportedly was more confused and weak this morning than his baseline, which is what caused staff to send him to the ED for evaluation. In the ED, his main complaint at present is nausea and feeling weak. He denies significant pain. Admission Exam Per Admitting Provider General: awake, alert, NAD, flat affect HEENT: no scleral icterus, slightly dry oral mucosa Neck: supple, trachea midline Heart: RRR Lungs: diminished at bases bilaterally Abdomen: soft, mildly distended, +BS Extremities: no pedal edema Neurologic: difficulty with recalling details such as where he lives, date but does know that he is in [place] and last week was [place], slow speech and responses, moving all extremities Skin: warm, dry, no jaundice Principal Diagnosis +COVID pna AMS , in setting of Parkinson's disease Discharge Exam Constitutional: WD/WN elderly M in NAD HEENT: NC/AT. Mucous membranes moist. Lungs: Decreased breath sounds CV: S1-S2, regular Abdomen: Soft, nontender, nondistended Extremities: No significant edema Neuro: awake. alert, answers appropriately, Parkinson's tremor, Parkinson's rigidity Psych: Cooperative, normal mood Discharge Data Allergies Allergy/AdvReac Type Severity Reaction Status Date / Time No Known Allergies Allergy Verified 07/20/24 10:34 Consultations 07/20/24 10:09 ED Decision to Admit Stat Ordered Studies 07/20/24 08:44 CT head/brain wo con Stat Findings: Areas of decreased attenuation are present in the periventricular and subcortical white matter bilaterally consistent with small vessel ischemic di sease. Generalized cerebral atrophy with commensurate enlargement of the ventricles, sulci, and cisterns is also present. There is no acute intracranial hemorrhage or evidence of acute territorial infarction. No shift of the midline structures, mass effect, or extra-axial abnormalities are shown. Atherosclerotic calcifications are present in the intracranial segments of the internal carotid arteries. Focal encephalomalacia in the right internal capsule is unchanged. Imaged portions of the paranasal sinuses and mastoid air cells are clear. The orbits appear normal. There are no acute fractures of the calvaria or scalp swelling. Impression: No acute intracranial hemorrhage, no evidence of acute territorial infarction or other acute intracranial disease process. Hospital Course (1) Pneumonia due to COVID-19 virus: (2) Encephalopathy due to COVID-19 virus: (3) Parkinson's disease: (4) BPH loc w urin obs/LUTS: (5) Dyslipidemia: Plan This is a 74 y/o male with tremor-predominant Parkinson disease, hx multiple CVAs, B12 deficiency, BPH, dyslipidemia, and other history as outlined below who was sent to the ED today from [facility] due to confusion. Work-up in the ED was significant for positive swab for COVID, elevated procalcitonin, and chest x-ray concerning for bilateral LL pneumonia. #COVID-19 infection #Bilateral pneumonia #Possible severe sepsis #Encephalopathy due to infection - Admitted to med telemetry - COVID isolation precautions - Not hypoxic so dexamethasone not indicated - Finished remdesivir - procalcitonin 1 - Sputum culture - Empiric antibiotic coverage due to elevated procal - continued Zosyn -> switched to augmentin - received IVF hydration initially due to recent N/V, elevated lactate - Incentive spirometry, flutter valve, guaifenesin BID #Parkinson disease - Continue Sinemet as taking outpatient - Aspiration precautions, fall precautions #Dyslipidemia - Held statin - resume #BPH - Continue tamsulosin #B12 deficiency - Continue supplementation Code status: full code DVT prophylaxis: subQ heparin PT/OT evals - recommend rehab Dispo: Case management involved - [facility] Total Time Total Time Spent Total Time Spent (In Minutes): 40 Discharge Plan Discharge Items Patient Disposition: Transfer Inpatient Rehab Fac Reason For Visit: CONFUSION, PNEUMONIA Discharge Diagnosis: +COVID pna AMS , in setting of Parkinson's disease Activity: Per Instructions section Non-emergency contact: Primary Care Provider Call non-emergency contact if: you have any medication questions and your symptoms worsen Follow-up/Referrals: Melvin Tang [Primary Care Provider] - Diet: Heart Healthy Addtl Attending Provider Instructions: Follow up with primary care physician within 1 week. Finish antibiotic treatment as prescribed. Continue using guaifenesin, flutter valve and incentive spirometry. Pending Studies at Discharge: Yes Studies:: final results of blood cultx Stand-Alone Forms: My [facility] Skilled Items Patient informed of condition?: Yes DNR: No Discharge Level of Care: Acute rehab Communicable Disease: Yes Discharge Prognosis: Stable Lines: None Urinary Catheter: No Medications and DC Order Prescriptions: New amoxicillin-pot clavulanate 875-125 mg Tablet 1 tab PO BIDM Qty: 3 0RF Advanced Probiotic 625 mg (10 billion cell) Capsule 1 cap PO DAILY Qty: 3 0RF guaifenesin [Mucinex] 600 mg Tablet Extended Release 12hr 600 mg PO Q12 Qty: 7 0RF Continued aspirin 81 mg Tablet,Delayed Release (Dr/Ec) 81 mg PO QAM carbidopa-levodopa 25-100 mg tablet 1 tab PO QID duloxetine 30 mg capsule,delayed release(DR/EC) 30 mg PO QAM polyethylene glycol 3350 [Miralax] 17 gram Powder In Packet 17 g PO QAM pravastatin 20 mg tablet 20 mg PO QPM tamsulosin 0.4 mg capsule 0.4 mg PO BID meclizine 25 mg Tablet,Chewable 25 mg PO BID PRN (Reason: Dizziness) carbidopa-levodopa 25-100 mg tablet extended release 1 tab PO HS cyanocobalamin (vitamin B-12) [Vitamin B-12] 1,000 mcg Tablet 1,000 mcg PO QAM midodrine 2.5 mg tablet 2.5 mg PO TID Discharge Orders: Discharge Order (Routine); Ordered 07/27/24 Ordered By: Zackary Baldwin Admission Data Admit Date/Time: 07/20/24 11:04 Attending Provider: Zackary Badlwin Admit Provider: Hoang Floyd Primary Care Provider: Melvin Tang Other Providers: Hoang Floyd; Nilo Larkin; [facility]
[2024-07-27 13:56] VITALS: TEMP 97.9
--- NOTE | 2024-07-27 14:20 | Hospitalist Progress Note ---
Date of Service July 27, 2024 Assessment & Plan (1) Pneumonia due to COVID-19 virus: (2) Encephalopathy due to COVID-19 virus: (3) Parkinson's disease: (4) BPH loc w urin obs/LUTS: (5) Dyslipidemia: Plan This is a 74 y/o male with tremor-predominant Parkinson disease, hx multiple CVAs, B12 deficiency, BPH, dyslipidemia, and other history as outlined below who was sent to the ED today from [facility] due to confusion. Work-up in the ED was significant for positive swab for COVID, elevated procalcitonin, and chest x-ray concerning for bilateral LL pneumonia. #COVID-19 infection #Bilateral pneumonia #Possible severe sepsis #Encephalopathy due to infection - Admitted to med telemetry - COVID isolation precautions - Not hypoxic so dexamethasone not indicated - Finished remdesivir - procalcitonin 1 - Sputum culture - Empiric antibiotic coverage due to elevated procal - continued Zosyn -> switched to augmentin - received IVF hydration initially due to recent N/V, elevated lactate - Incentive spirometry, flutter valve, guaifenesin BID #Parkinson disease - Continue Sinemet as taking outpatient - Aspiration precautions, fall precautions #Dyslipidemia - Held statin - resume #BPH - Continue tamsulosin #B12 deficiency - Continue supplementation Code status: full code DVT prophylaxis: subQ heparin PT/OT evals - recommend rehab Dispo: Case management involved - plan to DC to [facility] before returning to [facility] Admission and Anticipated Discharge Date Admission Date: July 20, 2024 Subjective Pt seen in follow up of covid, hx of Parkinson's, ams 2/2 to that Patient's mentation seems to be improved. Definitely realizes that GEETHA has exacerbated his Parkinson symptoms Currently sitting up in bed in [facility] denies any fever, chills, chest pain or shortness of breath Reports feeling weak but improved. PT/ OT recommends rehab - plan for [facility] CM involved in DC Finished remdesivir already Review of Systems Review of Systems: All systems reviewed & are unremarkable except as noted in Subjective Physical Exam Physical Exam: Constitutional: WD/WN elderly M in NAD HEENT: NC/AT. Mucous membranes moist. Lungs: Decreased breath sounds CV: S1-S2, regular Abdomen: Soft, nontender, nondistended Extremities: No significant edema Neuro: awake. alert, answers appropriately, Parkinson's tremor, Parkinson's rigidity Psych: Cooperative, normal mood Results & Data Results & Data Vital Signs (Past 12 Hours) Vital Signs Temp Pulse Resp BP Pulse Ox O2 Del Method 07/27/24 13:55 36.6 C 81 16 120/77 97 Room Air Medications Administered Current Inpatient Medications Acetaminophen (Acetaminophen 325 Mg Tab) 650 mg PO Q4H PRN PRN Reason: Pain or Fever Stop: 08/19/24 13:15 Last Admin: 07/21/24 21:43 Dose: 650 mg Amoxicillin/Clavulanate Potassium (Amoxicillin/Clavulanate 875 Mg Tab) [address] [facility]; Protocol Stop: 07/28/24 16:59 Last Admin: 07/27/24 07:50 Dose: 1 tab Aspirin (Aspirin 81 Mg Ectab) 81 mg PO [facility] Stop: 08/20/24 08:59 Last Admin: 07/27/24 07:51 Dose: 81 mg Carbidopa/Levodopa (Carbidopa/Levodopa 25/100mg Ext Rel Tab) [address] [facility] Stop: 08/19/24 20:59 Last Admin: 07/26/24 22:09 Dose: 1 tab Carbidopa/Levodopa (Carbidopa/Levodopa 25/100mg Tab) [address] [facility] Stop: 08/19/24 13:15 Last Admin: 07/27/24 11:58 Dose: 1 tab Cyanocobalamin (Cyanocobalamin (B-12) 500 Mcg Tablet) 1,000 mcg PO [facility] Stop: 08/20/24 08:59 Last Admin: 07/27/24 07:51 Dose: 1,000 mcg Duloxetine HCl (Duloxetine Hcl 30 Mg Cap) 30 mg PO [facility] Stop: 08/20/24 08:59 Last Admin: 07/27/24 07:52 Dose: 30 mg Guaifenesin (Guaifenesin 600 Mg Tabcr) [address] [facility] Stop: 08/19/24 20:59 Last Admin: 07/27/24 07:50 Dose: 600 mg Heparin Sodium (Porcine) (Heparin Sod 5,000 Unit/0.5 Ml Vial) 5,[address] [facility] Stop: 08/19/24 13:59 Last Admin: 07/27/24 13:57 Dose: 5,000 units Lactobacillus Acidophilus (Advanced Probiotic 625 Mg Capsule) 1,[address] [facility] Stop: 08/22/24 12:59 Last Admin: 07/27/24 07:50 Dose: 1,250 mg Meclizine HCl (Meclizine Hcl 25 Mg Tab) 25 mg PO BID PRN PRN Reason: Dizziness Stop: 08/19/24 13:20 Midodrine (Midodrine Hcl 2.5 Mg Tab) 2.[address] [facility] Stop: 08/19/24 13:59 Last Admin: 07/27/24 13:57 Dose: 2.5 mg Tamsulosin HCl (Tamsulosin Hcl 0.4 Mg Cap) 0.[address] [facility] Stop: 08/19/24 20:59 Last Admin: 07/27/24 07:50 Dose: 0.4 mg (3) Parkinson's disease Dyskinesia presence: unspecified whether dyskinesia Fluctuating manifestations: unspecified whether manifestations fluctuate Qualified Code(s): G20.A1 - Parkinson's disease without dyskinesia, without mention of fluctuations
[2024-07-27 20:10] VITALS: BP 171/98; PULSE 94; RESP 18; O2SAT 93
--- NOTE | 2024-07-28 10:58 | Communication Note ---
Date of Service: July 28, 2024 Patient was discharged yesterday but then did not get the the bed at the rehab as planned. Pt will be discharged to rehab today. Pls see already written Discharge summary, no changes overnight. MD Nicolasa
== END 2024-07-28 11:26 | DRG 871 ==
LOC: ED 08:21 → SUATTDRO 11:04 → EDINP 11:04 → 2N 13:17 → 3W 07-24 18:26
DX: Z79.82 Long term (current) use of aspirin; G93.41 Metabolic encephalopathy; Z79.899 Other long term (current) drug therapy; E53.8 Deficiency of other specified B group vitamins; Z86.73 Personal history of transient ischemic attack (TIA), and cerebral infarction without residual deficits; Z87.891 Personal history of nicotine dependence; A41.89 Other specified sepsis; F02.80 Dementia in other diseases classified elsewhere, unspecified severity, without behavioral disturbance, psychotic disturbance, mood disturbance, and anxiety; N40.1 Benign prostatic hyperplasia with lower urinary tract symptoms; J12.82 Pneumonia due to coronavirus disease 2019; R65.20 Severe sepsis without septic shock; E78.5 Hyperlipidemia, unspecified; U07.1 COVID-19; G20.A1 Parkinson's disease without dyskinesia, without mention of fluctuations

== ENCOUNTER 2025-01-05 10:58 | Inpatient (IN) ==
[2025-01-05] MEDS: SODIUM CHLORIDE 0.9% 500 ML IV SCH (11:30)
[2025-01-05 11:36] LABS: Basophils # (auto) 0.02 K/uL (0.00-0.20); Basophils % (auto) 0.4 %; Eosinophils # (auto) 0.11 K/uL (0.00-0.50); Eosinophils % (auto) 2.3 %; Hematocrit (blood only) 41.6 % (42.0-52.0); Hemoglobin 14.4 g/dl (14.0-18.0); Immature Granulocytes # (auto) 0.01 K/uL (0.01-0.20); Immature Granulocytes % (auto) 0.2 %; Lymphocytes # (auto) 0.66 K/uL (1.20-3.40); Lymphocytes % (auto) 13.7 %; Mean Corpuscular Hemoglobin 31.6 pg (25.0-34.0); Mean Corpuscular Hgb Conc 34.6 g/dL (32.0-36.0); Mean Corpuscular Volume 91.2 fL (80.0-100.0); Mean Platelet Volume 9.9 fL (9.4-12.4); Monocytes # (auto) 0.57 K/uL (0.11-0.59); Monocytes % (auto) 11.8 %; Neutrophils # (auto) 3.45 K/uL (1.40-6.50); Neutrophils % (auto) 71.6 %; Platelet Count 231 K/uL (130-400); RDW Coefficient of Variation 12.5 % (11.5-14.5); RDW Standard Deviation 42.1 fL (36.4-46.3); Red Blood Count 4.56 M/uL (4.70-6.10); White Blood Count 4.82 K/ul (4.8-10.8)
--- NOTE | 2025-01-05 11:58 | Emergency Department Note ---
Impression & Plan Confusion, Dementia, Acute dehydration, Hypokalemia ED Provider Note NAME: OANH DAUGHERTY AGE: 75 SEX: M : 1950 ARRIVES VIA: Ambulance INFORMANT: [Patient][nursing] ED PROVIDER(S): [Jeffrey Lorenz MD] CHIEF COMPLAINT: Confusion HISTORY OF PRESENT ILLNESS: The patient is a 75-year-old male who was thought to be somewhat more confused and a bit more altered today. He has some baseline dementia but, usually does not appear this confused. The patient believes he also has felt a bit more mentally foggy. He has felt this way for a few days. The patient does have a history of urinary incontinence, this is not new. He has noticed some pedal edema, he thinks this is above baseline. There has been no fever, no cough or congestion. No headache. No abdominal or chest pain. PMHx/PSHx/Social Hx: See Below PHYSICAL EXAM: GENERAL: Patient is in no acute distress. HEENT: No acute trauma, normocephalic atraumatic, mucous membranes moist, no nasal congestion. NECK: No stridor, no adenopathy, no meningismus, trachea is midline. LUNGS: Clear to auscultation bilaterally, no wheeze, no rhonchi, breath sounds equal. HEART: Without murmurs gallops or rubs, regular rate and rhythm. ABDOMEN: Soft, nontender, no peritonitis. EXTREMITIES: No cyanosis, full range of motion of all the joints without pain or difficulty. Moderate bilateral pedal edema. NEUROLOGIC: Awake alert, no acute motor or sensory deficits, no focal weakness. No speech slur. SKIN: No jaundice, no diaphoresis. DIFFERENTIAL DIAGNOSIS: Dehydration, electrolyte imbalance, intracranial bleeding, UTI, among others. EMERGENCY DEPARTMENT PROCEDURES: MEDICAL DECISION MAKING: There is no leukocytosis or worrisome anemia. There is a normal platelet count. Potassium is quite low at 2.5. No renal failure. No concerning liver enzyme elevation. The patient appeared to be in a euthyroid state. ECG shows a sinus rhythm, no dysrhythmia. Cardiac enzyme testing x 1 is not consistent with acute cardiac injury. Urinalysis suggest some dehydration, no infection. Brain CT shows no acute bleed or mass effect. Chest x-ray does not show pneumonia or CHF. On exam, there were no focal neurologic findings. The patient was not toxic or febrile. The patient was given 2 bags of IV potassium. He was ordered for IV saline. The patient presents with increasing confusion/weakness. He was found to be somewhat dehydrated and acutely hypokalemic. For now, admission and electrolyte replacement is warranted. I spoke with the patient and case management, the on-call hospitalist was consulted. Prior/Outside records/notes reviewed: Today's EMS notes describing his presentation and transport to this hospital. ECG per my interpretation: Indication was confusion. The ECG shows a normal sinus rhythm with a rate of 73. There is no acute ST elevation, no PVCs. There is some nonspecific ST change. QTc is 482. Continuous Cardiac Monitoring per my interpretation: An order was placed for continuous cardiac monitoring. The monitor shows a rate of 77 with normal sinus rhythm. Imaging/x-ray results per my interpretation: Chest x-ray does not show mediastinal widening, pneumonia or pneumothorax. Chronic Medical/Social conditions affecting care: Advanced age. Care/Management discussed with: Case management, the on-call hospitalist. Level of care consideration(s): After review of the information above and other included data: --I believe the patient requires escalation of care to admission DISPOSITION: Admission Past Med/Surg History Problem List (Updated 01/05/25 @ 15:09 by Jeffrey Lorenz MD) Hypokalemia (Acute) Acute dehydration (Acute) Dementia (Acute) Confusion (Acute) Encephalopathy due to COVID-19 virus Pneumonia due to COVID-19 virus Encephalopathy due to infection Pneumonia (Acute) COVID-19 (Acute) Ambulatory dysfunction Medical History B12 deficiency BPH loc w urin obs/LUTS Lumbar degenerative disc disease Dyslipidemia Irritable bowel syndrome with constipation CVA (cerebral vascular accident) Parkinson's disease Surgical History (Updated 07/20/24 @ 10:28 by Alexa Beavers PA-C) History of tonsillectomy and adenoidectomy History of foot surgery History of cataract surgery right 10/10/21 left 09/26/21 Social History Smoking Status: Former smoker Hx Alcohol Use: No Hx Substance Use: No Preferred Language: Ghanaian Communication Ability: Effective 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 Chair Required: No Beliefs That Will Affect Care: None Current Living Situation: Personal Care Facility Current Living Situation Comment: [facility] Feels Safe at Home: Yes Assistive Devices: Walker and Wheelchair Allergies Allergies Allergy/AdvReac Type Severity Reaction Status Date / Time No Known Allergies Allergy Verified 07/20/24 10:34 Home Meds Home Medications Medication Instructions Recorded Confirmed meclizine 25 mg chewable tablet 25 mg PO BID PRN Dizziness 05/22/23 01/05/25 pravastatin 20 mg tablet 20 mg PO QPM 05/22/23 01/05/25 tamsulosin 0.4 mg capsule 0.4 mg PO HS 05/22/23 01/05/25 carbidopa ER 25 mg-levodopa 100 mg 1 tab PO HS 01/19/24 01/05/25 tablet,extended release cyanocobalamin (vitamin B-12) 1,000 mcg PO QAM 01/19/24 01/05/25 1,000 mcg tablet (Vitamin B-12) carbidopa 37.5 mg-levodopa 150 1 tab PO TID 01/05/25 01/05/25 mg-entacapone 200 mg tablet clopidogrel 75 mg tablet 75 mg PO DAILY 01/05/25 01/05/25 diphenoxylate-atropine 2.5 1 tab PO QID PRN Diarrhea 01/05/25 01/05/25 mg-0.025 mg tablet duloxetine 20 mg capsule,delayed 20 mg PO QAM 01/05/25 01/05/25 release finasteride 5 mg tablet 5 mg PO QAM 01/05/25 01/05/25 loperamide 2 mg capsule 2 mg PO BID PRN Diarrhea 01/05/25 01/05/25 midodrine 5 mg tablet 5 mg PO TID 01/05/25 01/05/25 mirabegron 25 mg tablet,extended 25 mg PO QAM 01/05/25 01/05/25 release 24 hr (Myrbetriq) pantoprazole 40 mg tablet,delayed 40 mg PO DAILY 01/05/25 01/05/25 release Results & Data (ED) Vital Signs Vital Signs - 24 hr 01/05/25 11:05 01/05/25 11:36 01/05/25 12:30 Temperature 36.4 C L Temperature Source Oral Pulse Rate 77 77 82 Pulse Rate from SpO2 Sensor 77 85 Respiratory Rate 14 20 22 Blood Pressure 145/92 H 156/94 H 152/93 H Blood Pressure Mean 109 114 112 Pulse Oximetry 96 98 96 Oxygen Delivery Method Room Air Room Air Room Air Sepsis Recent Fever Within 48 Hours No Sepsis New/Unexplained Change in Mental Status Yes Sepsis Action Taken by Nursing No Action Required 01/05/25 12:34 01/05/25 12:42 01/05/25 13:09 Temperature Temperature Source Pulse Rate 82 80 78 Pulse Rate from SpO2 Sensor 80 78 Respiratory Rate 20 22 Blood Pressure 152/93 H 163/94 H Blood Pressure Mean 112 117 Pulse Oximetry 96 97 Oxygen Delivery Method Room Air Room Air Sepsis Recent Fever Within 48 Hours Sepsis New/Unexplained Change in Mental Status Sepsis Action Taken by Long-Term Medications Current Medication List: was personally reviewed by me Laboratory Data Attestation: I reviewed the patient's lab results. 01/05/25 11:10 01/05/25 11:10 Lab Results 01/05/25 01/05/25 Range/Units 11:10 12:02 WBC 4.82 (4.8-10.8) K/ul RBC 4.56 L (4.70-6.10) M/uL Hgb 14.4 (14.0-18.0) g/dl Hct 41.6 L (42.0-52.0) % MCV 91.2 (80.0-100.0) fL MCH 31.6 (25.0-34.0) pg MCHC 34.6 (32.0-36.0) g/dL RDW Std Deviation 42.1 (36.4-46.3) fL RDW Coeff of Maria Isabel 12.5 (11.5-14.5) % Plt Count 231 (130-400) K/uL MPV 9.9 (9.4-12.4) fL Immature Gran % (Auto) 0.2 % Neut % (Auto) 71.6 % Lymph % (Auto) 13.7 % [place] % (Auto) 11.8 % Eos % (Auto) 2.3 % Baso % (Auto) 0.4 % Neut # (Auto) 3.45 (1.40-6.50) K/uL Lymph # (Auto) 0.66 L (1.20-3.40) K/uL [place] # (Auto) 0.57 (0.11-0.59) K/uL Eos # (Auto) 0.11 (0.00-0.50) K/uL Baso # (Auto) 0.02 (0.00-0.20) K/uL Immature Gran # (Auto) 0.01 (0.01-0.20) K/uL Sodium 144 (136-145) mmol/L Potassium 2.5 L* (3.5-5.1) mmol/L Chloride 105 (98-107) mmol/L Carbon Dioxide 33 H (21-32) mmol/L Anion Gap 6 (3-11) BUN 15 (6-23) mg/dl Creatinine 0.88 (0.6-1.4) mg/dl Est Cr Clr Drug Dosing 70.3 ml/min eGFR 88.56 BUN/Creatinine Ratio 17.0 (10-20) Glucose 102 H (70-99(Fasting)) mg/dl Calcium 8.3 L (8.6-10.3) mg/dl Magnesium 2.1 (1.7-2.4) mg/dl Total Bilirubin 0.7 (0.2-1.0) mg/dl AST 11 L (13-39) U/L ALT < 3 L (7-52) U/L Alkaline Phosphatase 71 (34-104) U/L Troponin I High Sens 8.5 (0-20) pg/ml Total Protein 6.2 (6.0-8.3) gm/dl Albumin 3.5 (3.4-5.0) gm/dl Globulin 2.7 (2.5-4.0) gm/dl Albumin/Globulin Ratio 1.3 (0.9-2) TSH 1.063 (0.300-4.500) uIu/ml Urine Color Dark Yellow Urine Appearance Clear (Clear) Urine pH 6.5 (4.5-7.5) Ur Specific [place] 1.012 (1.000-1.030) Urine Protein Negative (Negative) Urine Glucose (UA) Negative (Negative) Urine Ketones Trace H (Negative) Urine Blood Negative (Negative) Urine Nitrite Negative (Negative) Urine Bilirubin Negative (Negative) Urine Urobilinogen Negative (Negative) Ur Leukocyte Esterase Negative (Negative) Urine Comment Administered Medications Discontinued Medications Sodium Chloride (Nss) 500 mls @ 999 mls/hr IV .Q31M SOY Stop: 01/05/25 12:00 Last Infusion: 01/05/25 12:31 Dose: Infused [place] [facility]: 01/05/25 11:30 Dose: 999 mls/hr Documented By: [facility] Potassium Chloride (K Manny / Wtr) 10 meq in 100 mls @ 100 mls/hr IV ONE ONE Stop: 01/05/25 13:20 Last Infusion: 01/05/25 13:25 Dose: Infused Documented By: Admin: 01/05/25 12:28 Dose: 100 mls/hr Documented By: [facility] Potassium Chloride (K Manny / Wtr) 10 meq in 100 mls @ 100 mls/hr IV ONE ONE Stop: 01/05/25 14:12 Last Admin: 01/05/25 13:25 Dose: 100 mls/hr Documented By: [facility] Imaging Data Radiologist's Impression: Chest X-Ray 01/05/25 11:18 XR chest 1V portable CLINICAL HISTORY: weakness COMPARISON STUDY: 07/20/2024 FINDINGS: Heart size and pulmonary vasculature are normal. No consolidation or pleural effusion. No pneumothorax. IMPRESSION: No acute findings. ACT 112: Negative or not required by law. Electronically signed by: Marcus Morales M.D. 01/05/2025 12:[address] 01/05/25 11:18 CT SCAN OF THE BRAIN WITHOUT IV CONTRAST CLINICAL HISTORY: Confusion. COMPARISON STUDY: MRI of the brain May 23, 2023. Head CT July 20, 2024. TECHNIQUE: Unenhanced axial CT scan of the brain was performed from the vertex to the skull base. A dose lowering technique was utilized adhering to the principles of ALARA. CT DOSE: 625.8 mGy.cm FINDINGS: Brain parenchyma: No acute intracranial hemorrhage, midline shift or mass effect is present. Love-white matter differentiation is preserved. There are no extra- axial fluid collections. There are no findings to suggest acute dural sinus thrombosis or acute territorial infarct. White matter hypodensities are unchanged and favor small vessel disease. An old infarct within the right basal ganglia is unchanged. Ventricles, sulci, cisterns: There is no hydrocephalus. The basal cisterns are patent. Calvarium: Unremarkable. Sinuses and mastoids: The visualized paranasal sinuses are clear. The mastoid air cells are well pneumatized. Orbits: The bony orbits are grossly intact. IMPRESSION: No acute intracranial findings. No change in appearance of the brain. ACT 112: Negative or not required by law. Electronically signed by: Titus Benson M.D. 01/05/2025 12:01 PM Discharge Plan Visit Data Chief Complaint: Altered Mental Status Stated Complaint: AMS ED Provider: Jeffrey Lorenz Discharge Problem: Confusion, Dementia, Acute dehydration, Hypokalemia Patient Disposition: Admitted As Inpatient Condition: Fair Discharge Instructions Interventions: ED Discharge Assessment Last Done: 01/05/25 15:07 Forms Stand Alone Forms: [facility], Important Visit Information Prescriptions Prescriptions: No Action pravastatin 20 mg tablet 20 mg PO QPM tamsulosin 0.4 mg capsule 0.4 mg PO HS meclizine 25 mg Tablet,Chewable 25 mg PO BID PRN (Reason: Dizziness) carbidopa-levodopa 25-100 mg tablet extended release 1 tab PO HS cyanocobalamin (vitamin B-12) [Vitamin B-12] 1,000 mcg Tablet 1,000 mcg PO QAM loperamide 2 mg capsule 2 mg PO BID PRN (Reason: Diarrhea) midodrine 5 mg tablet 5 mg PO TID diphenoxylate-atropine 2.5-0.025 mg tablet 1 tab PO QID PRN (Reason: Diarrhea) clopidogrel 75 mg tablet 75 mg PO DAILY pantoprazole 40 mg tablet,delayed release (DR/EC) 40 mg PO DAILY finasteride 5 mg tablet 5 mg PO QAM wlyxemwha-lpptcxke-qyymxzcxvo 37.5-150-200 mg tablet 1 tab PO TID duloxetine 20 mg capsule,delayed release(DR/EC) 20 mg PO QAM mirabegron [Myrbetriq] 25 mg tablet extended release 24 hr 25 mg PO QAM Referrals Referrals: Melvin Tang [Outside Practitioners] - Discharge Problem: Dementia Qualifiers: Dementia type: unspecified type Dementia severity: mild Dementia behavioral or psychological symptom: unspecified whether behavioral, psychotic, or mood disturbance or anxiety Qualified Code(s): F03.A0 - Unspecified dementia, mild, without behavioral disturbance, psychotic disturbance, mood disturbance, and anxiety
--- NOTE | 2025-01-05 12:02 | CT Scan Report ---
CT SCAN OF THE BRAIN WITHOUT IV CONTRAST CLINICAL HISTORY: Confusion. COMPARISON STUDY: MRI of the brain May 23, 2023. Head CT July 20, 2024. TECHNIQUE: Unenhanced axial CT scan of the brain was performed from the vertex to the skull base. A dose lowering technique was utilized adhering to the principles of ALARA. CT DOSE: 625.8 mGy.cm FINDINGS: Brain parenchyma: No acute intracranial hemorrhage, midline shift or mass effect is present. Love-whi te matter differentiation is preserved. There are no extra-axial fluid collections. There are no find ings to suggest acute dural sinus thrombosis or acute territorial infarct. White matter hypodensities are unchanged and favor small vessel disease. An old infarct within the right basal ganglia is uncha nged. Ventricles, sulci, cisterns: There is no hydrocephalus. The basal cisterns are patent. Calvarium: Unremarkable. Sinuses and mastoids: The visualized paranasal sinuses are clear. The mastoid air cells are well pneu matized. Orbits: The bony orbits are grossly intact. IMPRESSION: No acute intracranial findings. No change in appearance of the brain. ACT 112: Negative or not required by law. Electronically signed by: Titus Benson M.D. 01/05/2025 12:01 PM
--- NOTE | 2025-01-05 12:09 | XRay Report ---
XR chest 1V portable CLINICAL HISTORY: weakness COMPARISON STUDY: 07/20/2024 FINDINGS: Heart size and pulmonary vasculature are normal. No consolidation or pleural effusion. No p neumothorax. IMPRESSION: No acute findings. ACT 112: Negative or not required by law. Electronically signed by: Marcus Mroales M.D. 01/05/2025 12:07 PM
[2025-01-05 12:19] LABS: Appearance Urine Clear (Clear); Bilirubin Urine Negative (Negative); Blood Urine Negative (Negative); Color Urine Dark Yellow; Glucose Urine UA Negative (Negative); Ketones Urine Trace (Negative); Leukocyte Esterase Urine Negative (Negative); Nitrite Urine Negative (Negative); Protein Urine Negative (Negative); Specific Gravity Urine 1.012 (1.000-1.030); Urobilinogen Urine Negative (Negative); pH Urine 6.5 (4.5-7.5)
[2025-01-05 12:23] LABS: Anion Gap 6 (3-11); Blood Urea Nitrogen 15 mg/dl (6-23); Calcium 8.3 mg/dl (8.6-10.3); Carbon Dioxide 33 mmol/L (21-32); Chloride 105 mmol/L (98-107); Creatinine Clr Calc Pharmacy 70.3 ml/min; Glucose 102 mg/dl (70-99(Fasting)); Potassium 2.5 mmol/L (3.5-5.1); Sodium 144 mmol/L (136-145); Thyroid Stimulating Hormone 1.063 uIu/ml (0.300-4.500); Troponin I High Sensitivity 8.5 pg/ml (0-20)
[2025-01-05] MEDS: POTASSIUM CHLORIDE / WTR 10 MEQ/100 ML PLCT IV ONE ×2 (12:28→13:25)
[2025-01-05 12:33] LABS: Alanine Aminotransferase < 3 U/L (7-52); Albumin Globulin Ratio 1.3 (0.9-2); Albumin Level 3.5 gm/dl (3.4-5.0); Alkaline Phosphatase 71 U/L (34-104); Aspartate Aminotransferase 11 U/L (13-39); Bilirubin,Total 0.7 mg/dl (0.2-1.0); Globulin 2.7 gm/dl (2.5-4.0); Magnesium 2.1 mg/dl (1.7-2.4); Total Protein 6.2 gm/dl (6.0-8.3)
--- NOTE | 2025-01-05 14:39 | History & Physical Report ---
Date of Service January 05, 2025 Assessment & Plan (1) Confusion: (2) Generalized weakness: (3) Recurrent falls: (4) Dementia: (5) History of CVA (cerebrovascular accident): Plan: 75 year old male with history of Parkinson, CVA, B12 deficiency, BPH, HLD presenting with increased confusion and weakness for the past few days. Increased confusion, weakness, recurrent falls likely secondary to Dehydration, Hypokalemia from Diarrhea, secondary to Long Acting Carbidopa/Levodopa? r/o Infectious Source History of Parkinson, Recurrent CVAs at baseline, patient is pleasantly confused as per SNF staff CT head: negative Brain MRI to r/o Acute CVA, pending UA, CXR: unrevealing stool PCR, C diff: pending IV NSS replace PO and IV K Orthostatic VS Neuro consult check Vit D, Vit B12 PT/OT eval monitor closely other chronic medical problems: PARKINSON DISEASE- hold carbidopa/levodopa/entacapone for now until Neuro eval RECURRENT CVAs- continue Plavix, Pravastatin B12 DEFICIENCY- continue Vit B12 deficiency BPH- continue Tamsulosin HLD- continue Pravastatin DEPRESSION- continue Duloxetine DVT prophylaxis SCDs FULL CODE DISPOSITION resident of [facility] Hoang Floyd MD History of Present Illness Chief Complaint: increased confusion, weakness Primary Care Provider: Ruth Lucia MD 75 year old male with history of Parkinson, CVA, B12 deficiency, BPH, HLD presenting with increased confusion and weakness for the past few days. Patient has baseline dementia and is a resident of [facility]. History obtained from: shelter facility staff, and [facility] records. Patient was started on a long-acting carbidopa levodopa by the neurologist about a month ago. As per staff, patient subsequently developed Persistent diarrhea since the medication change. He has also been noted to have increasing weakness and recurrent falls. Patient reported dizziness with standing during his visit to the PCP. No fever, chills, chest pain, shortness of breath, cough, abdominal pain. Today, patient was observed to be more confused, and weak, hence he was brought to the ER for evaluation. At the ED, patient received with stable vital signs overall. CT head negative for acute process BMP showed a potassium of 2.5 UA showed ketones UA negative for UTI Chest x-ray no pneumonia He was given IV riders and IV NSS at the ER. On exam, patient seen resting in bed, comfortable. Awake, alert, comfortable, pleasantly confused. Just had his dinner. States he feels fine overall. Denies abdominal pain, nausea no chest pain, dyspnea, palpitations, dizziness, headache no focal neuro symptoms Allergies Allergy/AdvReac Type Severity Reaction Status Date / Time No Known Allergies Allergy Verified 07/20/24 10:34 Home Medications Medication Instructions Recorded Confirmed Type meclizine 25 mg chewable tablet 25 mg PO BID PRN Dizziness 05/22/23 01/05/25 History pravastatin 20 mg tablet 20 mg PO QPM 05/22/23 01/05/25 History tamsulosin 0.4 mg capsule 0.4 mg PO HS 05/22/23 01/05/25 History carbidopa ER 25 mg-levodopa 100 mg 1 tab PO HS 01/19/24 01/05/25 History tablet,extended release cyanocobalamin (vitamin B-12) 1,000 mcg PO QAM 01/19/24 01/05/25 History 1,000 mcg tablet (Vitamin B-12) carbidopa 37.5 mg-levodopa 150 1 tab PO TID 01/05/25 01/05/25 History mg-entacapone 200 mg tablet clopidogrel 75 mg tablet 75 mg PO DAILY 01/05/25 01/05/25 History diphenoxylate-atropine 2.5 1 tab PO QID PRN Diarrhea 01/05/25 01/05/25 History mg-0.025 mg tablet duloxetine 20 mg capsule,delayed 20 mg PO QAM 01/05/25 01/05/25 History release finasteride 5 mg tablet 5 mg PO QAM 01/05/25 01/05/25 History loperamide 2 mg capsule 2 mg PO BID PRN Diarrhea 01/05/25 01/05/25 History midodrine 5 mg tablet 5 mg PO TID 01/05/25 01/05/25 History mirabegron 25 mg tablet,extended 25 mg PO QAM 01/05/25 01/05/25 History release 24 hr (Myrbetriq) pantoprazole 40 mg tablet,delayed 40 mg PO DAILY 01/05/25 01/05/25 History release Past Med/Surg History Problem List (Updated 01/05/25 @ 15:18 by Hoang Floyd MD) Generalized weakness History of CVA (cerebrovascular accident) Recurrent falls Hypokalemia (Acute) Acute dehydration (Acute) Dementia (Acute) Confusion (Acute) Encephalopathy due to COVID-19 virus Pneumonia due to COVID-19 virus Encephalopathy due to infection Pneumonia (Acute) COVID-19 (Acute) Ambulatory dysfunction Medical History B12 deficiency BPH loc w urin obs/LUTS Lumbar degenerative disc disease Dyslipidemia Irritable bowel syndrome with constipation CVA (cerebral vascular accident) Parkinson's disease Surgical History (Updated 07/20/24 @ 10:28 by Alexa Beavers PA-C) History of tonsillectomy and adenoidectomy History of foot surgery History of cataract surgery right 10/10/21 left 09/26/21 Social History Smoking Status: Former smoker Tobacco Type: Cigarettes Hx Alcohol Use: No Hx Substance Use: No Preferred Language: Guamanian Communication Ability: Effective 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 Of Marketing Adometry Required: No Beliefs That Will Affect Care: None Current Living Situation: Other Current Living Situation Comment: [address] [place] Other Information That Helps Us Care for You: No Feels Safe at Home: Yes Safety Concerns: Feels Safe At This Time Assistive Devices: Glasses and Walker Assistive Devices Comment: reading glasses Review of Systems Review of Systems: all noted and negative except for above Physical Exam Physical Exam: General- pleasantly confused, not in distress, speaks in sentences with no effort or accessory muscle use Eyes- anicteric Neck- no JVD Lungs- clear breath sounds bilaterally, no rales/wheezes Heart- normal rate, regular rhythm; no murmurs Abdomen- normal bowel sounds, nondistended, soft, nontender Extremities- no pretibial edema, no calf tenderness Neuro- alert, oriented x 0, pleasantly confused, otherwise no gross focal neurologic deficits Skin- warm & dry Results & Data Results & Data Vital Signs (Past 12 Hours) Vital Signs Temp Pulse Resp BP Pulse Ox O2 Del Method 01/05/25 13:09 78 22 163/94 H 97 Room Air 01/05/25 12:42 80 20 152/93 H 96 Room Air 01/05/25 12:34 82 01/05/25 12:30 82 22 152/93 H 96 Room Air 01/05/25 11:36 77 20 156/94 H 98 Room Air 01/05/25 11:05 36.4 C L 77 14 145/92 H 96 Room Air all noted and reviewed including below Code Status & VTE Plan VTE Prophylaxis Plan VTE Prophylaxis will be ordered: Yes (4) Dementia Dementia behavioral or psychological symptom: unspecified whether behavioral, psychotic, or mood disturbance or anxiety Dementia severity: mild Dementia type: unspecified type Qualified Code(s): F03.A0 - Unspecified dementia, mild, without behavioral disturbance, psychotic disturbance, mood disturbance, and anxiety
[2025-01-05] MEDS ORDERED: ONDANSETRON INJ 2 MG/ML 2 ML VIAL IV PRN (15:23)
[2025-01-05] MEDS ORDERED: ACETAMINOPHEN 325 MG TAB PO PRN (15:23)
[2025-01-05] MEDS: POTASSIUM CHLORIDE 10 MEQ TABCR PO STA (16:12)
[2025-01-05] MEDS: POTASSIUM CHLORIDE / WTR 10 MEQ/100 ML PLCT IV SCH (17:23)
[2025-01-05] MEDS: NSS + 20MEQ KCL 20 MEQ/1,000 ML BAG IV SCH (17:23)
[2025-01-05] MEDS ORDERED: MECLIZINE HCL 25 MG TAB PO PRN (17:57)
[2025-01-05] MEDS: MIDODRINE HCL 2.5 MG TAB PO SCH (18:25)
[2025-01-05] MEDS: CARBIDOPA/LEVODOPA 25/100MG EXT REL TAB PO SCH (19:23)
[2025-01-05] MEDS: PRAVASTATIN SOD 20 MG TAB PO SCH (19:24)
[2025-01-05] MEDS: TAMSULOSIN HCL 0.4 MG CAP PO SCH (19:24)
[2025-01-05 21:21] LABS: Calcium 7.9 mg/dl (8.6-10.3); Creatinine Clr Calc Pharmacy 71.9 ml/min; Potassium 3.1 mmol/L (3.5-5.1)
--- NOTE | 2025-01-05 22:27 | Electrocardiogram Report ---
Test Reason : Blood Pressure : */* mmHG Vent. Rate : 73 BPM Atrial Rate : 73 BPM P-R Int : 150 ms QRS Dur : 92 ms QT Int : 438 ms P-R-T Axes : 64 -23 49 degrees QTcB Int : 482 ms Normal sinus rhythm Nonspecific ST abnormality Prolonged QT Abnormal ECG When compared with ECG of 20-Jul-2024 08:28, Premature ventricular complexes are no longer Present Confirmed by Marcelino Lubin ([id number]) on 01/05/2025 10:27:00 PM Referred By: Confirmed By: Marcelino Lubin
[2025-01-05] MEDS: SODIUM CHLOR 0.45% + 20MEQ KCL 20 MEQ/1,000 ML BAG IV ONE (22:35)
[2025-01-05] MEDS: POTASSIUM CHLORIDE CRTAB 20 MEQ TABCR PO STA (22:35)
--- NOTE | 2025-01-06 03:05 | Magnetic Resonance Report ---
Exam(s): MRI HEAD Without Contrast EXAM: MR Head Without Intravenous Contrast CLINICAL HISTORY: Reason for exam: weakness, confusion, falls, r/o cva. TECHNIQUE: Magnetic resonance images of the head/brain without intravenous contrast in multiple planes. COMPARISON: Prior head CT from January 05, 2025. FINDINGS: Brain: There is a remote ischemic injury of the right capsule with hemosiderin staining. Moderate nonspecific white matter changes.. No mass. No hemorrhage. No acute infarct. There is a small focus of susceptibility artifact in the right anterior temporal lobe which may represent a tiny cavernoma. Ventricles: Moderate ventriculomegaly. Bones/joints: Unremarkable. No acute fracture. Sinuses: Unremarkable as visualized. No acute sinusitis. Mastoid air cells: Unremarkable as visualized. No mastoid effusion. Orbits: Bilateral lens replacements. IMPRESSION: No evidence of acute intracranial pathology. Electronically signed by: Hyun Harris MD 01/06/25 03:04 AM
[2025-01-06 08:10] LABS: C. diff 027-NAP1-BI NEGATIVE; Cdiff Toxin B Gene (2yr or >) Negative Cdiff Gene (Neg)
[2025-01-06 08:10] LABS: Basophils # (auto) 0.05 K/uL (0.00-0.20); Basophils % (auto) 0.9 %; Eosinophils # (auto) 0.08 K/uL (0.00-0.50); Eosinophils % (auto) 1.4 %; Hematocrit (blood only) 39.5 % (42.0-52.0); Hemoglobin 13.4 g/dl (14.0-18.0); Immature Granulocytes # (auto) 0.03 K/uL (0.01-0.20); Immature Granulocytes % (auto) 0.5 %; Lymphocytes # (auto) 0.87 K/uL (1.20-3.40); Lymphocytes % (auto) 15.7 %; Mean Corpuscular Hemoglobin 30.6 pg (25.0-34.0); Mean Corpuscular Hgb Conc 33.9 g/dL (32.0-36.0); Mean Corpuscular Volume 90.2 fL (80.0-100.0); Mean Platelet Volume 10.1 fL (9.4-12.4); Monocytes # (auto) 0.65 K/uL (0.11-0.59); Monocytes % (auto) 11.8 %; Neutrophils # (auto) 3.85 K/uL (1.40-6.50); Neutrophils % (auto) 69.7 %; Platelet Count 223 K/uL (130-400); RDW Coefficient of Variation 12.4 % (11.5-14.5); RDW Standard Deviation 41.3 fL (36.4-46.3); Red Blood Count 4.38 M/uL (4.70-6.10); White Blood Count 5.53 K/ul (4.8-10.8)
[2025-01-06 08:26] LABS: Albumin Globulin Ratio 1.4 (0.9-2); Albumin Level 3.3 gm/dl (3.4-5.0); BUN Creatinine Ratio 10.7 (10-20); Bilirubin,Total 0.8 mg/dl (0.2-1.0); Calcium 7.7 mg/dl (8.6-10.3); Creatinine Clr Calc Pharmacy 73.1 ml/min; Globulin 2.4 gm/dl (2.5-4.0); Magnesium 1.8 mg/dl (1.7-2.4); Potassium 2.7 mmol/L (3.5-5.1); Total Protein 5.7 gm/dl (6.0-8.3)
[2025-01-06 08:41] LABS: Adenovirus F 40/41 PCR Not Detected (NotDetected); Astrovirus PCR Not Detected (NotDetected); Campylobacter PCR Not Detected (NotDetected); Cryptosporidium PCR Not Detected (NotDetected); Cyclospora cayetanensis PCR Not Detected (NotDetected); Entamoeba histolytica PCR Not Detected (NotDetected); Enteroaggregative E.coli(EAEC) Not Detected (NotDetected); Enteropathogenic E.coli (EPEC) Not Detected (NotDetected); Enterotoxigenic E.coli (ETEC) Not Detected (NotDetected); Giardia lamblia PCR Not Detected (NotDetected); Norovirus GI/GII PCR Not Detected (NotDetected); Plesiomonas shigelloides PCR Not Detected (NotDetected); Rotavirus A PCR Not Detected (NotDetected); Salmonella PCR Not Detected (NotDetected); Sapovirus PCR Not Detected (NotDetected); Shiga-like Toxin E.coli (STEC) Not Detected (NotDetected); Shigella/Enteroinvasive E.coli Not Detected (NotDetected); Vibrio cholerae PCR Not Detected (NotDetected); Vibrio species PCR Not Detected (NotDetected); Yersinia enterocolitica PCR Not Detected (NotDetected)
[2025-01-06] MEDS: VIBEGRON 75 MG TAB PO SCH (10:52)
[2025-01-06] MEDS: PANTOprazole 40 MG TAB PO SCH (10:52)
[2025-01-06] MEDS: DULoxetine HCL 20 MG CAP PO SCH (10:52)
[2025-01-06] MEDS: CYANOCOBALAMIN (B-12) 500 MCG TABLET PO SCH (10:53)
[2025-01-06] MEDS: FINASTERIDE 5 MG TAB PO SCH (10:53)
[2025-01-06] MEDS: CLOPIDOGREL BISULFATE 75 MG TAB PO SCH (10:53)
--- NOTE | 2025-01-06 11:37 | Neurology Consultation ---
Date of Consultation January 06, 2025 Assessment & Plan (1) Confusion: Agree with continued to monitor for s/s of infection Recommend continue hospital delirium precautions Recommend continue Sinemet CR QHS Recommend continue only Sinemet 25/100 TID during wakeful hours Continue to monitor orthostatic vital signs Continue to monitor/control blood glucose Continue frequent neurological assessments Obtain stat CT brain without contrast for any acute neurological decline Continue to monitor telemetry closely Continue to monitor renal and hepatic function, keep euvolemic Ok from neurology perspective for VTE prophylaxis Continue fall precautions PT/OT/SLT to eval and treat Telehealth Consultation Telehealth Information Telehealth Information: I performed this visit using a real-time telehealth connection between my location and the patients location ([facility]). After connecting through interactive tele-video, patient was identified by name and date of and/or wristband check.Patient (or authorized healthcare community health representative) was informed that this was a telemedicine visit and it was being conducted confidentially over secure lines. My office door was closed and no one else was present in the room with me.Patient (or authorized healthcare community health representative) provided consent to proceed with the visit, expressed an understanding of privacy and security of the telemedicine visit, and gave permission to have a hospital community health representative in the room in order to assist with the visit and to conduct portions of the visit, as needed. I informed the patient (or authorized healthcare community health representative) that I reviewed their record and presented the opportunity for them to ask any questions regarding the visit today. The patient agreed to participate. History of Present Illness Reason for Consultation: Worsening confusion Requesting Physician: Dr Baldwin Attending Physician: Zackary Baldwin MD History of Present Illness 75yo male follows with outpatient Neurology for long standing Parkinson's Dz unfortunately has suffered recent N/V diarrhea as well as increased lethargy and falls. he was found to be hypokalemic with signs of dehydration now undergoing workup to assess for possible infection. He was noted to be more confused than baseline, he has known cognitive decline, over the last few days as well. He has undergone imaging including CT brain without contrast, personally reviewed, revealing no overt evidence of hemorrhage. He has undergone MRI brain revealing no overt evidence of acute intracranial pathology. I have performed televideo consultation. He is awake and able to answer questions appropriately. he is able to name objects on televideo monitor and follow simple commands without overt deficit. There is obvious slowed fluency and hypomimia/decreased blink rate. Neurological exam is non lateralizing/nonfocal in terms of motor strength. Allergies Allergy/AdvReac Type Severity Reaction Status Date / Time No Known Allergies Allergy Verified 07/20/24 10:34 Home Medications Medication Instructions Recorded Confirmed Type meclizine 25 mg chewable tablet 25 mg PO BID PRN Dizziness 05/22/23 01/05/25 History pravastatin 20 mg tablet 20 mg PO QPM 05/22/23 01/05/25 History tamsulosin 0.4 mg capsule 0.4 mg PO HS 05/22/23 01/05/25 History carbidopa ER 25 mg-levodopa 100 mg 1 tab PO HS 01/19/24 01/05/25 History tablet,extended release cyanocobalamin (vitamin B-12) 1,000 mcg PO QAM 01/19/24 01/05/25 History 1,000 mcg tablet (Vitamin B-12) carbidopa 37.5 mg-levodopa 150 1 tab PO TID 01/05/25 01/05/25 History mg-entacapone 200 mg tablet clopidogrel 75 mg tablet 75 mg PO DAILY 01/05/25 01/05/25 History diphenoxylate-atropine 2.5 1 tab PO QID PRN Diarrhea 01/05/25 01/05/25 History mg-0.025 mg tablet duloxetine 20 mg capsule,delayed 20 mg PO QAM 01/05/25 01/05/25 History release finasteride 5 mg tablet 5 mg PO QAM 01/05/25 01/05/25 History loperamide 2 mg capsule 2 mg PO BID PRN Diarrhea 01/05/25 01/05/25 History midodrine 5 mg tablet 5 mg PO TID 01/05/25 01/05/25 History mirabegron 25 mg tablet,extended 25 mg PO QAM 01/05/25 01/05/25 History release 24 hr (Myrbetriq) pantoprazole 40 mg tablet,delayed 40 mg PO DAILY 01/05/25 01/05/25 History release Patient History Medical History B12 deficiency BPH loc w urin obs/LUTS Lumbar degenerative disc disease Dyslipidemia Irritable bowel syndrome with constipation CVA (cerebral vascular accident) Parkinson's disease Surgical History (Updated 07/20/24 @ 10:28 by Alexa Beavers PA-C) History of tonsillectomy and adenoidectomy History of foot surgery History of cataract surgery right 10/10/21 left 09/26/21 Social History Smoking Status: Former smoker Tobacco Type: Cigarettes Hx Alcohol Use: No Hx Substance Use: No Preferred Language: Citizen Of The [place] Communication Ability: Effective Sweatband Shaper Required: No Beliefs That Will Affect Care: None Current Living Situation: Other Current Living Situation Comment: [place] [facility] Other Information That Helps Us Care for You: No Feels Safe at Home: Yes Safety Concerns: Feels Safe At This Time Assistive Devices: Glasses and Walker Assistive Devices Comment: reading glasses Physical Exam Neurological Examination: Mental Status: Awake and able to answer questions/follow commands There is overt hypomimia and decreased blink rate He is able to name objects appropriately Affect is flat but remains appropriate. CN testing: I: Deferred II: Reports no changes in visual acuity III/IV/: No evidence of gaze preference, hippus, nystagmus or roving eye movements V: Facial sensation is difficult to reliably assess VII: Facial movements are minimal, hypomimia easily appreciated VIII: Hearing appears grossly intact to loud voice bilaterally IX/X: Palate is unable to be accurately visualized via telemedicine XI: Shoulder shrug appears symmetric/ grossly intact bilaterally XII: Tongue protrudes midline without evidence of biting Motor exam: Strength appears grossly intact/symmetric in all extremities Sensory: Sensation is difficult to reliably assess Coordination: No apparent evidence of dysmetria or dysdiadochokinesia Reflexes: Deferred Gait: Deferred Results & Data Vital Signs (Past 12 Hours) Vital Signs Temp Pulse Resp BP Pulse Ox O2 Del Method 01/06/25 10:36 37.1 C 97 H 18 128/71 96 Room Air 01/06/25 08:18 36.6 C 80 16 171/86 H 97 Room Air 01/06/25 05:53 36.6 C 83 18 166/89 H 94 Room Air 01/06/25 00:07 36.5 C 85 18 166/88 H 97 Room Air Laboratory Results Abnormal lab results 01/05/25 01/05/25 01/05/25 Range/Units 11:10 12:02 20:49 RBC 4.56 L (4.70-6.10) M/uL Hgb (14.0-18.0) g/dl Hct 41.6 L (42.0-52.0) % Lymph # (Auto) 0.66 L (1.20-3.40) K/uL [place] # (Auto) (0.11-0.59) K/uL Potassium 2.5 L* 3.1 L D (3.5-5.1) mmol/L Chloride 108 H (98-107) mmol/L Carbon Dioxide 33 H (21-32) mmol/L Glucose 102 H (70-99(Fasting)) mg/dl Calcium 8.3 L 7.9 L (8.6-10.3) mg/dl AST 11 L (13-39) U/L ALT < 3 L (7-52) U/L Total Protein (6.0-8.3) gm/dl Albumin (3.4-5.0) gm/dl Globulin (2.5-4.0) gm/dl Vitamin B12 (180-914) pg/ml 25-OH Vitamin D Total (30-100) ng/ml Urine Ketones Trace H (Negative) 01/06/25 Range/Units 06:33 RBC 4.38 L (4.70-6.10) M/uL Hgb 13.4 L (14.0-18.0) g/dl Hct 39.5 L (42.0-52.0) % Lymph # (Auto) 0.87 L (1.20-3.40) K/uL [place] # (Auto) 0.65 H (0.11-0.59) K/uL Potassium 2.7 L (3.5-5.1) mmol/L Chloride (98-107) mmol/L Carbon Dioxide (21-32) mmol/L Glucose (70-99(Fasting)) mg/dl Calcium 7.7 L (8.6-10.3) mg/dl AST 11 L (13-39) U/L ALT 3 L (7-52) U/L Total Protein 5.7 L (6.0-8.3) gm/dl Albumin 3.3 L (3.4-5.0) gm/dl Globulin 2.4 L (2.5-4.0) gm/dl Vitamin B12 > 1500 H (180-914) pg/ml 25-OH Vitamin D Total < 7.0 L (30-100) ng/ml Urine Ketones (Negative) Diagnostic Findings Chest X-Ray 01/05/25 11:18 XR chest 1V portable CLINICAL HISTORY: weakness COMPARISON STUDY: 07/20/2024 FINDINGS: Heart size and pulmonary vasculature are normal. No consolidation or pleural effusion. No pneumothorax. IMPRESSION: No acute findings. ACT 112: Negative or not required by law. Electronically signed by: Marcus Morales M.D. 01/05/2025 12:[address] 01/05/25 11:18 CT SCAN OF THE BRAIN WITHOUT IV CONTRAST CLINICAL HISTORY: Confusion. COMPARISON STUDY: MRI of the brain May 23, 2023. Head CT July 20, 2024. TECHNIQUE: Unenhanced axial CT scan of the brain was performed from the vertex to the skull base. A dose lowering technique was utilized adhering to the principles of ALARA. CT DOSE: 625.8 mGy.cm FINDINGS: Brain parenchyma: No acute intracranial hemorrhage, midline shift or mass effect is present. Love-white matter differentiation is preserved. There are no extra-a xial fluid collections. There are no findings to suggest acute dural sinus thrombosis or acute territorial infarct. White matter hypodensities are unchanged and favor small vessel disease. An old infarct within the right basal ganglia is unchanged. Ventricles, sulci, cisterns: There is no hydrocephalus. The basal cisterns are patent. Calvarium: Unremarkable. Sinuses and mastoids: The visualized paranasal sinuses are clear. The mastoid air cells are well pneumatized. Orbits: The bony orbits are grossly intact. IMPRESSION: No acute intracranial findings. No change in appearance of the brain. ACT 112: Negative or not required by law. Electronically signed by: Titus Benson M.D. 01/05/2025 12:01 PM Brain MRI 01/05/25 15:03 Exam(s): MRI HEAD Without Contrast EXAM: MR Head Without Intravenous Contrast CLINICAL HISTORY: Reason for exam: weakness, confusion, falls, r/o cva. TECHNIQUE: Magnetic resonance images of the head/brain without intravenous contrast in multiple planes. COMPARISON: Prior head CT from January 05, 2025. FINDINGS: Brain: There is a remote ischemic injury of the right capsule with hemosiderin staining. Moderate nonspecific white matter changes.. No mass. No hemorrhage. No acute infarct. There is a small focus of susceptibility artifact in the right anterior temporal lobe which may represent a tiny cavernoma. Ventricles: Moderate ventriculomegaly. Bones/joints: Unremarkable. No acute fracture. Sinuses: Unremarkable as visualized. No acute sinusitis. Mastoid air cells: Unremarkable as visualized. No mastoid effusion. Orbits: Bilateral lens replacements. IMPRESSION: No evidence of acute intracranial pathology. Electronically signed by: Hyun Harris MD 01/06/25 03:04 AM Medications Administered Home Medications Medication Instructions Recorded Confirmed Last Taken meclizine 25 mg chewable tablet 25 mg PO BID PRN Dizziness 05/22/23 01/05/25 Unknown pravastatin 20 mg tablet 20 mg PO QPM 05/22/23 01/05/25 05/22/23 17:00 tamsulosin 0.4 mg capsule 0.4 mg PO HS 05/22/23 01/05/25 05/22/23 17:00 carbidopa ER 25 mg-levodopa 100 mg 1 tab PO HS 01/19/24 01/05/25 Unknown tablet,extended release cyanocobalamin (vitamin B-12) 1,000 mcg PO QAM 01/19/24 01/05/25 Unknown 1,000 mcg tablet (Vitamin B-12) carbidopa 37.5 mg-levodopa 150 1 tab PO TID 01/05/25 01/05/25 Unknown mg-entacapone 200 mg tablet clopidogrel 75 mg tablet 75 mg PO DAILY 01/05/25 01/05/25 Unknown diphenoxylate-atropine 2.5 1 tab PO QID PRN Diarrhea 01/05/25 01/05/25 Unknown mg-0.025 mg tablet duloxetine 20 mg capsule,delayed 20 mg PO QAM 01/05/25 01/05/25 Unknown release finasteride 5 mg tablet 5 mg PO QAM 01/05/25 01/05/25 Unknown loperamide 2 mg capsule 2 mg PO BID PRN Diarrhea 01/05/25 01/05/25 Unknown midodrine 5 mg tablet 5 mg PO TID 01/05/25 01/05/25 Unknown mirabegron 25 mg tablet,extended 25 mg PO QAM 01/05/25 01/05/25 Unknown release 24 hr (Myrbetriq) pantoprazole 40 mg tablet,delayed 40 mg PO DAILY 01/05/25 01/05/25 Unknown release Active Medications Generic Name Dose Route Start Last Admin Trade Name Oc PRN Reason Stop Dose Admin Carbidopa/Levodopa 1 tab 01/05/25 21:00 01/05/25 19:23 Carbidopa/Levodopa 25/100mg Ext Rel Tab PO 02/04/25 20:59 1 tab HS SOY Administration Clopidogrel Bisulfate 75 mg 01/06/25 09:00 01/06/25 10:53 Clopidogrel Bisulfate 75 Mg Tab PO 02/05/25 08:59 75 mg DAILY SOY Administration Cyanocobalamin 1,000 mcg 01/06/25 09:00 01/06/25 10:53 Cyanocobalamin (B-12) 500 Mcg Tablet PO 02/05/25 08:59 1,000 mcg QAM SOY Administration Duloxetine HCl 20 mg 01/06/25 09:00 01/06/25 10:52 Duloxetine Hcl 20 Mg Cap PO 02/05/25 08:59 20 mg QAM SOY Administration Finasteride 5 mg 01/06/25 09:00 01/06/25 10:53 Finasteride 5 Mg Tab PO 02/05/25 08:59 5 mg QAM SOY Administration Potassium Chloride/Sodium Chloride 20 meq in 1,000 mls @ 60 mls/hr 01/05/25 21:39 01/05/25 22:35 1/2 Nss + 20meq Kcl 1000ml IV 01/06/25 14:18 60 mls/hr .[id number] Administration Midodrine 5 mg 01/05/25 18:00 01/06/25 06:37 Midodrine Hcl 2.5 Mg Tab PO 02/04/25 17:59 Not Given TID@0700,1200,1700 SOY Pantoprazole Sodium 40 mg 01/06/25 09:00 01/06/25 10:52 Pantoprazole 40 Mg Tab PO 02/05/25 08:59 40 mg DAILY SOY Administration Pravastatin Sodium 20 mg 01/05/25 21:00 01/05/25 19:24 Pravastatin Sod 20 Mg Tab PO 02/04/25 20:59 20 mg QPM SOY Administration Tamsulosin HCl 0.4 mg 01/05/25 21:00 01/05/25 19:24 Tamsulosin Hcl 0.4 Mg Cap PO 02/04/25 20:59 0.4 mg HS SOY Administration Vibegron 75 mg 01/06/25 09:00 01/06/25 10:52 Vibegron 75 Mg Tab PO 02/05/25 08:59 75 mg DAILY SOY Administration
--- NOTE | 2025-01-06 15:23 | Hospitalist Progress Note ---
Date of Service January 06, 2025 Assessment & Plan (1) Confusion: (2) Generalized weakness: (3) Recurrent falls: (4) Dementia: (5) History of CVA (cerebrovascular accident): Plan: 75 year old male with history of Parkinson, CVA, B12 deficiency, BPH, HLD presenting with increased confusion and weakness for the past few days. Increased confusion, weakness, recurrent falls likely secondary to Dehydration, Hypokalemia from Diarrhea, secondary to Long Acting Carbidopa/Levodopa? r/o Infectious Source History of Parkinson, Recurrent CVAs at baseline, patient is pleasantly confused as per SNF staff CT head: negative Brain MRI negative UA, CXR: unrevealing stool PCR, C diff: negative IV NSS replace PO and IV K Orthostatic VS Neurology consulted Recommend continue Sinemet CR QHS Recommend continue only Sinemet 25/100 TID during wakeful hours - medications adjusted as above -checked Vit D, Vit B12 Hypovitaminosis D - start supplement PT/OT eval monitor closely 01/06 Pt lying in bed, in NAD but drowsy, only answers some questions appropriately other chronic medical problems: PARKINSON DISEASE- held carbidopa/levodopa/entacapone until Neuro eval -> meds adjusted as above RECURRENT CVAs- continue Plavix, Pravastatin B12 DEFICIENCY- continue Vit B12 deficiency BPH- continue Tamsulosin HLD- continue Pravastatin DEPRESSION- continue Duloxetine DVT prophylaxis SCDs FULL CODE DISPOSITION resident of [facility] Admission and Anticipated Discharge Date Admission Date: January 05, 2025 Subjective Pt seen in follow up Pt w/ hx of Parkinson's, presents w/ AMS, hypokalemia Has been having loose stools Currently lying in bed , very sleepy, answers some questions appropriately. Thinks that he has been in hospital for a while. Denies fever, chills, chest pain, shortness of breath, abd.pain, n/v stool pcr negat. Review of Systems Review of Systems: All systems reviewed & are unremarkable except as noted in Subjective Physical Exam Physical Exam: General- pleasantly confused, not in distress, speaks in sentences with no effort or accessory muscle use Eyes- anicteric Neck- supple Lungs- clear breath sounds bilaterally, no rales/wheezes Heart- normal rate, regular rhythm; no murmurs Abdomen- normal bowel sounds, nondistended, soft, nontender Extremities- no pretibial edema, no calf tenderness Neuro- drowsy, pleasantly confused, answers some questions, moves extremities Skin- warm & dry Results & Data Results & Data Vital Signs (Past 12 Hours) Vital Signs Temp Pulse Pulse Resp BP Pulse Ox O2 Del Method 01/06/25 14:48 88 01/06/25 10:36 37.1 C 97 H 18 128/71 96 Room Air 01/06/25 08:18 36.6 C 80 16 171/86 H 97 Room Air 01/06/25 08:00 87 01/06/25 05:53 36.6 C 83 18 166/89 H 94 Room Air Laboratory Results 01/06/25 01/06/25 01/05/25 Range/Units 06:33 05:35 20:49 WBC 5.53 (4.8-10.8) K/ul RBC 4.38 L (4.70-6.10) M/uL Hgb 13.4 L (14.0-18.0) g/dl Hct 39.5 L (42.0-52.0) % MCV 90.2 (80.0-100.0) fL MCH 30.6 (25.0-34.0) pg MCHC 33.9 (32.0-36.0) g/dL RDW Std Deviation 41.3 (36.4-46.3) fL RDW Coeff of Maria Isabel 12.4 (11.5-14.5) % Plt Count 223 (130-400) K/uL MPV 10.1 (9.4-12.4) fL Immature Gran % (Auto) 0.5 % Neut % (Auto) 69.7 % Lymph % (Auto) 15.7 % [place] % (Auto) 11.8 % Eos % (Auto) 1.4 % Baso % (Auto) 0.9 % Neut # (Auto) 3.85 (1.40-6.50) K/uL Lymph # (Auto) 0.87 L (1.20-3.40) K/uL [place] # (Auto) 0.65 H (0.11-0.59) K/uL Eos # (Auto) 0.08 (0.00-0.50) K/uL Baso # (Auto) 0.05 (0.00-0.20) K/uL Immature Gran # (Auto) 0.03 (0.01-0.20) K/uL Sodium 144 145 (136-145) mmol/L Potassium 2.7 L 3.1 L D (3.5-5.1) mmol/L Chloride 107 108 H (98-107) mmol/L Carbon Dioxide 28 29 (21-32) mmol/L Anion Gap 9 8 (3-11) BUN 9 12 (6-23) mg/dl Creatinine 0.84 0.86 (0.6-1.4) mg/dl Est Cr Clr Drug Dosing 73.1 71.9 ml/min eGFR 89.82 89.18 BUN/Creatinine Ratio 10.7 14.0 (10-20) Glucose 82 91 (70-99(Fasting)) mg/dl Calcium 7.7 L 7.9 L (8.6-10.3) mg/dl Magnesium 1.8 (1.7-2.4) mg/dl Total Bilirubin 0.8 (0.2-1.0) mg/dl AST 11 L (13-39) U/L ALT 3 L (7-52) U/L Alkaline Phosphatase 62 (34-104) U/L Total Protein 5.7 L (6.0-8.3) gm/dl Albumin 3.3 L (3.4-5.0) gm/dl Globulin 2.4 L (2.5-4.0) gm/dl Albumin/Globulin Ratio 1.4 (0.9-2) Vitamin B12 > 1500 H (180-914) pg/ml 25-OH Vitamin D Total < 7.0 L (30-100) ng/ml Stl C. cayetanensis PCR Not Detected (NotDetected) Stool Rotavirus A PCR Not Detected (NotDetected) Stl Adenov F 40/41 PCR Not Detected (NotDetected) Stool Astrovirus (PCR) Not Detected (NotDetected) Stool Campylobacter PCR Not Detected (NotDetected) Stl C. diff Tox B Gene Negative Cdiff Gene (Neg) Stl C. diff [id number] NEGATIVE Stool Cryptosporidium PCR Not Detected (NotDetected) Stl E.coli Shiga Tox PCR Not Detected (NotDetected) Stl Enterotoxigenic E PCR Not Detected (NotDetected) Stool EPEC (PCR) Not Detected (NotDetected) Stool EAEC (PCR) Not Detected (NotDetected) Stl E. histolytica PCR Not Detected (NotDetected) Stool Giardia Lamblia PCR Not Detected (NotDetected) Stool Salmonella PCR Not Detected (NotDetected) Stool Sapovirus (PCR) Not Detected (NotDetected) Stl P. shigelloides PCR Not Detected (NotDetected) Stl Shigella/EIEC PCR Not Detected (NotDetected) St Y.enterocolitica PCR Not Detected (NotDetected) Stool Vibrio (PCR) Not Detected (NotDetected) Stl Vibrio cholerae PCR Not Detected (NotDetected) Stl Norovirus GI/GII PCR Not Detected (NotDetected) Medications Administered Current Inpatient Medications Acetaminophen (Acetaminophen 325 Mg Tab) 650 mg PO Q4H PRN PRN Reason: Pain or Fever Stop: 02/04/25 15:22 Carbidopa/Levodopa (Carbidopa/Levodopa 25/100mg Ext Rel Tab) 1 tab PO HS [facility] Stop: 02/04/25 20:59 Last Admin: 01/05/25 19:23 Dose: 1 tab Carbidopa/Levodopa (Carbidopa/Levodopa 25/100mg Tab) 1 tab PO TID@0800,1200,1600 [facility] Stop: 02/05/25 15:59 Clopidogrel Bisulfate (Clopidogrel Bisulfate 75 Mg Tab) 75 mg PO DAILY [facility] Stop: 02/05/25 08:59 Last Admin: 01/06/25 10:53 Dose: 75 mg Cyanocobalamin (Cyanocobalamin (B-12) 500 Mcg Tablet) 1,000 mcg PO QAM [facility] Stop: 02/05/25 08:59 Last Admin: 01/06/25 10:53 Dose: 1,000 mcg Diphenoxylate HCl/Atropine (Diphenoxylate/Atropine 2.5/0.025mg Tab) 1 tab PO QID PRN PRN Reason: Diarrhea Stop: 02/04/25 17:41 Duloxetine HCl (Duloxetine Hcl 20 Mg Cap) 20 mg PO QAM [facility] Stop: 02/05/25 08:59 Last Admin: 01/06/25 10:52 Dose: 20 mg Finasteride (Finasteride 5 Mg Tab) 5 mg PO QAM [facility] Stop: 02/05/25 08:59 Last Admin: 01/06/25 10:53 Dose: 5 mg Meclizine HCl (Meclizine Hcl 25 Mg Tab) 25 mg PO BID PRN PRN Reason: Dizziness Stop: 02/04/25 17:56 Midodrine (Midodrine Hcl 2.5 Mg Tab) 5 mg PO TID@0700,1200,1700 SOY Stop: 02/04/25 17:59 Last Admin: 01/06/25 13:08 Dose: 5 mg Ondansetron HCl (Ondansetron Inj 2 Mg/Ml 2 Ml Vial) 4 mg IV Q6H PRN PRN Reason: Nausea Stop: 02/04/25 15:22 Pantoprazole Sodium (Pantoprazole 40 Mg Tab) 40 mg PO DAILY SOY Stop: 02/05/25 08:59 Last Admin: 01/06/25 10:52 Dose: 40 mg Potassium Chloride (Potassium Chloride Crtab 20 Meq Tabcr) 40 meq PO NOW STA Stop: 01/06/25 15:21 Pravastatin Sodium (Pravastatin Sod 20 Mg Tab) 20 mg PO QPM SOY Stop: 02/04/25 20:59 Last Admin: 01/05/25 19:24 Dose: 20 mg Tamsulosin HCl (Tamsulosin Hcl 0.4 Mg Cap) 0.4 mg PO HS SOY Stop: 02/04/25 20:59 Last Admin: 01/05/25 19:24 Dose: 0.4 mg Vibegron (Vibegron 75 Mg Tab) 75 mg PO DAILY SOY Stop: 02/05/25 08:59 Last Admin: 01/06/25 10:52 Dose: 75 mg Vitamin D (Cholecalciferol 125 Mcg (5,000 Units) Tab) 125 mcg PO We@0900 SOY Stop: 02/05/25 15:29 (4) Dementia Dementia behavioral or psychological symptom: unspecified whether behavioral, psychotic, or mood disturbance or anxiety Dementia severity: mild Dementia type: unspecified type Qualified Code(s): F03.A0 - Unspecified dementia, mild, without behavioral disturbance, psychotic disturbance, mood disturbance, and anxiety
[2025-01-06] MEDS: CHOLECALCIFEROL 125 MCG (5,000 UNITS) TAB PO SCH (16:02)
[2025-01-06] MEDS: POTASSIUM CHLORIDE CRTAB 20 MEQ TABCR PO STA (16:02)
[2025-01-06] MEDS: CARBIDOPA/LEVODOPA 25/100MG TAB PO SCH (16:02)
[2025-01-07 08:56] LABS: Hematocrit (blood only) 40.9 % (42.0-52.0); Hemoglobin 13.9 g/dl (14.0-18.0); Mean Corpuscular Hemoglobin 31.2 pg (25.0-34.0); Mean Corpuscular Volume 91.9 fL (80.0-100.0); Mean Platelet Volume 9.9 fL (9.4-12.4); Platelet Count 216 K/uL (130-400); RDW Coefficient of Variation 12.7 % (11.5-14.5); RDW Standard Deviation 42.5 fL (36.4-46.3); Red Blood Count 4.45 M/uL (4.70-6.10); White Blood Count 6.28 K/ul (4.8-10.8)
[2025-01-07 09:16] LABS: BUN Creatinine Ratio 7.1 (10-20); Creatinine Clr Calc Pharmacy 71.1 ml/min; Phosphorus 2.4 mg/dl (2.5-4.9); Potassium 3.1 mmol/L (3.5-5.1)
[2025-01-07] MEDS: POTASSIUM CHLORIDE CRTAB 20 MEQ TABCR PO STA (11:45)
[2025-01-07] MEDS: POTASSIUM PHOSPHATE 6 MMOL in SODIUM CHLORIDE 0.9% 100 ML IV ONE (11:46)
[2025-01-07] MEDS: POTASSIUM PHOS 3 MMOL/1 ML INFUSION IV STA (14:50)
--- NOTE | 2025-01-07 15:06 | Hospitalist Progress Note ---
Date of Service January 07, 2025 Assessment & Plan (1) Confusion: (2) Generalized weakness: (3) Recurrent falls: (4) Dementia: (5) History of CVA (cerebrovascular accident): Plan: 75 year old male with history of Parkinson, CVA, B12 deficiency, BPH, HLD presenting with increased confusion and weakness for the past few days. Increased confusion, weakness, recurrent falls likely secondary to Dehydration, Hypokalemia from Diarrhea, secondary to Long Acting Carbidopa/Levodopa? r/o Infectious Source History of Parkinson, Recurrent CVAs at baseline, patient is pleasantly confused as per SNF staff CT head: negative Brain MRI negative UA, CXR: unrevealing stool PCR, C diff: negative IV NSS Orthostatic VS Neurology consulted Recommend continue Sinemet CR QHS Recommend continue only Sinemet 25/100 TID during wakeful hours - medications adjusted as above -checked Vit D, Vit B12 Hypovitaminosis D - start supplement Hypokalemia replace and monitor PT/OT eval monitor closely 01/06 Pt lying in bed, in NAD but drowsy, only answers some questions appropriately 01/07 Pt awake, and alert, sitting up in bed, son present at the bedside other chronic medical problems: PARKINSON DISEASE- held carbidopa/levodopa/entacapone until Neuro eval -> meds adjusted as above RECURRENT CVAs- continue Plavix, Pravastatin B12 DEFICIENCY- continue Vit B12 deficiency BPH- continue Tamsulosin HLD- continue Pravastatin DEPRESSION- continue Duloxetine DVT prophylaxis SCDs FULL CODE DISPOSITION resident of [facility] SN[facility] Admission and Anticipated Discharge Date Admission Date: January 05, 2025 Subjective Pt seen in follow up Pt w/ hx of Parkinson's, presents w/ AMS, hypokalemia Has been having loose stools Currently sitting up in bed in NAD, much more alert than yesterday. Pt's son present at the bedside and updated. Denies fever, chills, chest pain, shortness of breath, abd.pain, n/v Review of Systems Review of Systems: All systems reviewed & are unremarkable except as noted in Subjective Physical Exam Physical Exam: General- pleasantly confused, not in distress, speaks in sentences with no effort or accessory muscle use Eyes- anicteric Neck- supple Lungs- clear breath sounds bilaterally, no rales/wheezes Heart- normal rate, regular rhythm; no murmurs Abdomen- normal bowel sounds, nondistended, soft, nontender Extremities- no pretibial edema, no calf tenderness Neuro- wake, alert, pleasantly confused, answers some questions, moves extremities Skin- warm & dry Results & Data Results & Data Vital Signs (Past 12 Hours) Vital Signs Temp Pulse Pulse Resp BP Pulse Ox O2 Del Method 01/07/25 13:01 85 01/07/25 11:57 36.3 C L 77 16 100/66 97 Room Air 01/07/25 07:37 36.5 C 69 18 138/84 96 Room Air 01/07/25 06:05 70 Laboratory Results 01/07/25 Range/Units 08:25 WBC 6.28 (4.8-10.8) K/ul RBC 4.45 L (4.70-6.10) M/uL Hgb 13.9 L (14.0-18.0) g/dl Hct 40.9 L (42.0-52.0) % MCV 91.9 (80.0-100.0) fL MCH 31.2 (25.0-34.0) pg MCHC 34.0 (32.0-36.0) g/dL RDW Std Deviation 42.5 (36.4-46.3) fL RDW Coeff of Maria Isabel 12.7 (11.5-14.5) % Plt Count 216 (130-400) K/uL MPV 9.9 (9.4-12.4) fL Sodium 144 (136-145) mmol/L Potassium 3.1 L (3.5-5.1) mmol/L Chloride 105 (98-107) mmol/L Carbon Dioxide 33 H (21-32) mmol/L Anion Gap 6 (3-11) BUN 6 (6-23) mg/dl Creatinine 0.85 (0.6-1.4) mg/dl Est Cr Clr Drug Dosing 71.1 ml/min eGFR 89.50 BUN/Creatinine Ratio 7.1 L (10-20) Glucose 103 H (70-99(Fasting)) mg/dl Calcium 8.0 L (8.6-10.3) mg/dl Phosphorus 2.4 L (2.5-4.9) mg/dl Magnesium 2.0 (1.7-2.4) mg/dl Medications Administered Current Inpatient Medications Acetaminophen (Acetaminophen 325 Mg Tab) 650 mg PO Q4H PRN PRN Reason: Pain or Fever Stop: 02/04/25 15:22 Carbidopa/Levodopa (Carbidopa/Levodopa 25/100mg Ext Rel Tab) 1 tab PO HS [facility] Stop: 02/04/25 20:59 Last Admin: 01/06/25 19:45 Dose: 1 tab Carbidopa/Levodopa (Carbidopa/Levodopa 25/100mg Tab) 1 tab PO TID@0800,1200,1600 [facility] Stop: 02/05/25 15:59 Last Admin: 01/07/25 11:45 Dose: 1 tab Clopidogrel Bisulfate (Clopidogrel Bisulfate 75 Mg Tab) 75 mg PO DAILY [facility] Stop: 02/05/25 08:59 Last Admin: 01/07/25 10:42 Dose: 75 mg Cyanocobalamin (Cyanocobalamin (B-12) 500 Mcg Tablet) 1,000 mcg PO QAM [facility] Stop: 02/05/25 08:59 Last Admin: 01/07/25 10:42 Dose: 1,000 mcg Diphenoxylate HCl/Atropine (Diphenoxylate/Atropine 2.5/0.025mg Tab) 1 tab PO QID PRN PRN Reason: Diarrhea Stop: 02/04/25 17:41 Duloxetine HCl ([facility] Hcl 20 Mg Cap) [facility] [place] [facility] Stop: 02/05/25 08:59 Last Admin: 01/07/25 10:41 Dose: 20 mg Finasteride (Finasteride 5 Mg Tab) 5 mg PO QAM [facility] Stop: 02/05/25 08:59 Last Admin: 01/07/25 10:43 Dose: 5 mg Meclizine HCl (Meclizine Hcl 25 Mg Tab) 25 mg PO BID PRN PRN Reason: Dizziness Stop: 02/04/25 17:56 Midodrine (Midodrine Hcl 2.5 Mg Tab) 5 mg PO TID@0700,1200,1700 [facility] Stop: 02/04/25 17:59 Last Admin: 01/07/25 10:43 Dose: 5 mg Ondansetron HCl (Ondansetron Inj 2 Mg/Ml 2 Ml Vial) 4 mg IV Q6H PRN PRN Reason: Nausea Stop: 02/04/25 15:22 Pantoprazole Sodium (Pantoprazole 40 Mg Tab) 40 mg PO DAILY [facility] Stop: 02/05/25 08:59 Last Admin: 01/07/25 10:42 Dose: 40 mg Pravastatin Sodium (Pravastatin Sod 20 Mg Tab) 20 mg PO QPM [facility] Stop: 02/04/25 20:59 Last Admin: 01/06/25 19:45 Dose: 20 mg Tamsulosin HCl (Tamsulosin Hcl 0.4 Mg Cap) 0.4 mg PO HS [facility] Stop: 02/04/25 20:59 Last Admin: 01/06/25 19:45 Dose: 0.4 mg Vibegron (Vibegron 75 Mg Tab) 75 mg PO DAILY [facility] Stop: 02/05/25 08:59 Last Admin: 01/07/25 10:42 Dose: 75 mg Vitamin D (Cholecalciferol 125 Mcg (5,000 Units) Tab) 125 mcg PO We@0900 [facility] Stop: 02/05/25 15:29 Last Admin: 01/06/25 16:02 Dose: 125 mcg (4) Dementia Dementia behavioral or psychological symptom: unspecified whether behavioral, psychotic, or mood disturbance or anxiety Dementia severity: mild Dementia type: unspecified type Qualified Code(s): F03.A0 - Unspecified dementia, mild, without behavioral disturbance, psychotic disturbance, mood disturbance, and anxiety
[2025-01-08 08:19] VITALS: RESP 20
[2025-01-08 09:15] LABS: Hematocrit (blood only) 39.7 % (42.0-52.0); Hemoglobin 13.8 g/dl (14.0-18.0); Mean Corpuscular Hemoglobin 31.2 pg (25.0-34.0); Mean Corpuscular Hgb Conc 34.8 g/dL (32.0-36.0); Mean Corpuscular Volume 89.6 fL (80.0-100.0); Mean Platelet Volume 9.8 fL (9.4-12.4); Platelet Count 207 K/uL (130-400); RDW Coefficient of Variation 12.4 % (11.5-14.5); RDW Standard Deviation 41.2 fL (36.4-46.3); Red Blood Count 4.43 M/uL (4.70-6.10); White Blood Count 6.48 K/ul (4.8-10.8)
[2025-01-08 09:31] LABS: Calcium 7.7 mg/dl (8.6-10.3); Creatinine Clr Calc Pharmacy 72.8 ml/min; Magnesium 1.8 mg/dl (1.7-2.4); Potassium 3.5 mmol/L (3.5-5.1)
[2025-01-08] MEDS ORDERED: POTASSIUM PHOS 3 MMOL/1 ML INFUSION IV STA (12:24)
--- NOTE | 2025-01-08 12:29 | Hospitalist Progress Note ---
Date of Service January 08, 2025 Assessment & Plan (1) Confusion: (2) Generalized weakness: (3) Recurrent falls: (4) Dementia: (5) History of CVA (cerebrovascular accident): Plan: 75 year old male with history of Parkinson, CVA, B12 deficiency, BPH, HLD presenting with increased confusion and weakness for the past few days. Increased confusion, weakness, recurrent falls likely secondary to Dehydration, Hypokalemia from Diarrhea, secondary to Long Acting Carbidopa/Levodopa? r/o Infectious Source History of Parkinson, Recurrent CVAs at baseline, patient is pleasantly confused as per SNF staff CT head: negative Brain MRI negative UA, CXR: unrevealing stool PCR, C diff: negative IV NSS Orthostatic VS Neurology consulted Recommend continue Sinemet CR QHS Recommend continue only Sinemet 25/100 TID during wakeful hours - medications adjusted as above -checked Vit D, Vit B12 Hypovitaminosis D - start supplement Hypokalemia replace and monitor PT/OT eval monitor closely 01/06 Pt lying in bed, in NAD but drowsy, only answers some questions appropriately 01/07 Pt awake, and alert, sitting up in bed, son present at the bedside 01/08 Sitting up in chair, awake alert, communicative today Other chronic medical problems: PARKINSON DISEASE - held carbidopa/levodopa/entacapone until Neuro eval -> meds adjusted as above RECURRENT CVAs - continue Plavix, Pravastatin B12 DEFICIENCY- continue Vit B12 deficiency BPH - continue Tamsulosin HLD - continue Pravastatin DEPRESSION - continue Duloxetine DVT prophylaxis SCDs FULL CODE DISPOSITION resident of [facility] SNF Admission and Anticipated Discharge Date Admission Date: January 05, 2025 Subjective Pt seen in follow up Pt w/ hx of Parkinson's, presents w/ AMS, hypokalemia Has been having loose stools Currently sitting up in chair in NAD, much more alert and communicative Denies fever, chills, chest pain, shortness of breath, abd.pain, n/v Review of Systems Review of Systems: All systems reviewed & are unremarkable except as noted in Subjective Physical Exam Physical Exam: General- pleasantly confused, not in distress, speaks in sentences with no effort or accessory muscle use Eyes- anicteric Neck- supple Lungs- clear breath sounds bilaterally, no rales/wheezes Heart- normal rate, regular rhythm; no murmurs Abdomen- normal bowel sounds, nondistended, soft, nontender Extremities- no pretibial edema, no calf tenderness Neuro- wake, alert, pleasantly confused, answers some questions, moves extremities Skin- warm & dry Results & Data Results & Data Vital Signs (Past 12 Hours) Vital Signs Temp Pulse Resp BP BP Pulse Ox O2 Del Method 01/08/25 11:44 36.5 C 95 H 20 90/53 L 97 Room Air 01/08/25 08:34 Room Air 01/08/25 08:18 36.5 C 70 20 164/84 H 95 Room Air 01/08/25 05:54 71 131/80 01/08/25 04:44 36.8 C 74 16 161/86 H 95 Room Air Laboratory Results 01/08/25 Range/Units 08:58 WBC 6.48 (4.8-10.8) K/ul RBC 4.43 L (4.70-6.10) M/uL Hgb 13.8 L (14.0-18.0) g/dl Hct 39.7 L (42.0-52.0) % MCV 89.6 (80.0-100.0) fL MCH 31.2 (25.0-34.0) pg MCHC 34.8 (32.0-36.0) g/dL RDW Std Deviation 41.2 (36.4-46.3) fL RDW Coeff of Maria Isabel 12.4 (11.5-14.5) % Plt Count 207 (130-400) K/uL MPV 9.8 (9.4-12.4) fL Sodium 139 (136-145) mmol/L Potassium 3.5 (3.5-5.1) mmol/L Chloride 105 (98-107) mmol/L Carbon Dioxide 28 (21-32) mmol/L Anion Gap 6 (3-11) BUN 10 (6-23) mg/dl Creatinine 0.83 (0.6-1.4) mg/dl Est Cr Clr Drug Dosing 72.8 ml/min eGFR 90.14 BUN/Creatinine Ratio 12.0 (10-20) Glucose 169 H (70-99(Fasting)) mg/dl Calcium 7.7 L (8.6-10.3) mg/dl Phosphorus 2.0 L (2.5-4.9) mg/dl Magnesium 1.8 (1.7-2.4) mg/dl Medications Administered Current Inpatient Medications Acetaminophen (Acetaminophen 325 Mg Tab) 650 mg PO Q4H PRN PRN Reason: Pain or Fever Stop: 02/04/25 15:22 Carbidopa/Levodopa (Carbidopa/Levodopa 25/100mg Ext Rel Tab) 1 tab PO HS [facility] Stop: 02/04/25 20:59 Last Admin: 01/07/25 19:42 Dose: 1 tab Carbidopa/Levodopa (Carbidopa/Levodopa 25/100mg Tab) 1 tab PO TID@0800,12 00,1600 [facility] Stop: 02/05/25 15:59 Last Admin: 01/08/25 08:51 Dose: 1 tab Clopidogrel Bisulfate (Clopidogrel Bisulfate 75 Mg Tab) 75 mg PO DAILY [facility] Stop: 02/05/25 08:59 Last Admin: 01/08/25 08:51 Dose: 75 mg Cyanocobalamin (Cyanocobalamin (B-12) 500 Mcg Tablet) 1,000 mcg PO QAM [facility] Stop: 02/05/25 08:59 Last Admin: 01/08/25 08:51 Dose: 1,000 mcg Diphenoxylate HCl/Atropine (Diphenoxylate/Atropine 2.5/0.025mg Tab) 1 tab PO QID PRN PRN Reason: Diarrhea Stop: 02/04/25 17:41 Duloxetine HCl (Duloxetine Hcl 20 Mg Cap) 20 mg PO QAM [facility] Stop: 02/05/25 08:59 Last Admin: 01/08/25 08:51 Dose: 20 mg Finasteride (Finasteride 5 Mg Tab) 5 mg PO QAM [facility] Stop: 02/05/25 08:59 Last Admin: 01/08/25 08:51 Dose: 5 mg Meclizine HCl (Meclizine Hcl 25 Mg Tab) 25 mg PO BID PRN PRN Reason: Dizziness Stop: 02/04/25 17:56 Midodrine (Midodrine Hcl 2.5 Mg Tab) 5 mg PO TID@0700,1200,1700 [facility] Stop: 02/04/25 17:59 Last Admin: 01/08/25 05:56 Dose: 5 mg Ondansetron HCl (Ondansetron Inj 2 Mg/Ml 2 Ml Vial) 4 mg IV Q6H PRN PRN Reason: Nausea Stop: 02/04/25 15:22 Pantoprazole Sodium (Pantoprazole 40 Mg Tab) 40 mg PO DAILY [facility] Stop: 02/05/25 08:59 Last Admin: 01/08/25 08:51 Dose: 40 mg Potassium Chloride (Potassium Chloride Crtab 20 Meq Tabcr) 20 meq PO NOW STA Stop: 01/08/25 12:26 Potassium Phosphate (Potassium Phos 3 Mmol/1 Ml Infusion) 6 mmol IV NOW STA Stop: 01/08/25 12:25 Pravastatin Sodium (Pravastatin Sod 20 Mg Tab) 20 mg PO QPM [facility] Stop: 02/04/25 20:59 Last Admin: 01/07/25 19:42 Dose: 20 mg Tamsulosin HCl (Tamsulosin Hcl 0.4 Mg Cap) 0.4 mg PO HS [facility] Stop: 02/04/25 20:59 Last Admin: 01/07/25 19:42 Dose: 0.4 mg Vibegron (Vibegron 75 Mg Tab) 75 mg PO DAILY [facility] Stop: 02/05/25 08:59 Last Admin: 01/08/25 08:51 Dose: 75 mg Vitamin D (Cholecalciferol 125 Mcg (5,000 Units) Tab) 125 mcg PO We@0900 [facility] Stop: 02/05/25 15:29 Last Admin: 01/06/25 16:02 Dose: 125 mcg (4) Dementia Dementia behavioral or psychological symptom: unspecified whether behavioral, psychotic, or mood disturbance or anxiety Dementia severity: mild Dementia type: unspecified type Qualified Code(s): F03.A0 - Unspecified dementia, mild, without behavioral disturbance, psychotic disturbance, mood disturbance, and anxiety
[2025-01-08] MEDS: POTASSIUM CHLORIDE CRTAB 20 MEQ TABCR PO STA (13:11)
[2025-01-08] MEDS: POTASSIUM PHOSPHATE 6 MMOL in SODIUM CHLORIDE 0.9% 100 ML IV ONE (13:11)
[2025-01-08] MEDS: ERGOCALCIFEROL 1250 MCG (50,000 UNITS) CAP PO SCH (13:46)
[2025-01-08] MEDS: MELATONIN 3 MG TAB PO PRN (19:51)
[2025-01-09 07:11] LABS: Hematocrit (blood only) 38.4 % (42.0-52.0); Hemoglobin 13.1 g/dl (14.0-18.0); Mean Corpuscular Hgb Conc 34.1 g/dL (32.0-36.0); Mean Platelet Volume 9.9 fL (9.4-12.4); Platelet Count 207 K/uL (130-400); RDW Coefficient of Variation 12.8 % (11.5-14.5); RDW Standard Deviation 42.1 fL (36.4-46.3); Red Blood Count 4.22 M/uL (4.70-6.10); White Blood Count 6.16 K/ul (4.8-10.8)
[2025-01-09 07:49] LABS: BUN Creatinine Ratio 16.9 (10-20); Creatinine Clr Calc Pharmacy 65.9 ml/min; Magnesium 1.9 mg/dl (1.7-2.4); Phosphorus 3.4 mg/dl (2.5-4.9); Potassium 3.3 mmol/L (3.5-5.1)
--- NOTE | 2025-01-09 10:26 | Hospitalist Progress Note ---
Date of Service January 09, 2025 Assessment & Plan (1) Confusion: (2) Generalized weakness: (3) Recurrent falls: (4) Dementia: (5) History of CVA (cerebrovascular accident): Plan: 75 year old male with history of Parkinson, CVA, B12 deficiency, BPH, HLD presenting with increased confusion and weakness for the past few days. Increased confusion, weakness, recurrent falls likely secondary to Dehydration, Hypokalemia from Diarrhea, secondary to Long Acting Carbidopa/Levodopa? r/o Infectious Source History of Parkinson, Recurrent CVAs at baseline, patient is pleasantly confused as per SNF staff CT head: negative Brain MRI negative UA, CXR: unrevealing stool PCR, C diff: negative IV NSS Orthostatic VS Neurology consulted Recommend continue Sinemet CR QHS Recommend continue only Sinemet 25/100 TID during wakeful hours - medications adjusted as above -checked Vit D, Vit B12 Hypovitaminosis D - started supplement Hypokalemia replace and monitor PT/OT eval monitor closely 01/06 Pt lying in bed, in NAD but drowsy, only answers some questions appropriately 01/07 Pt awake, and alert, sitting up in bed, son present at the bedside 01/08 Sitting up in chair, awake alert, communicative today 01/09 Overall pt seems improved, answers appropriately. reports no loose stools yesterday Other chronic medical problems: PARKINSON DISEASE - held carbidopa/levodopa/entacapone until Neuro eval -> meds adjusted as above RECURRENT CVAs - continue Plavix, Pravastatin B12 DEFICIENCY- continue Vit B12 deficiency BPH - continue Tamsulosin HLD - continue Pravastatin DEPRESSION - continue Duloxetine DVT prophylaxis SCDs FULL CODE DISPOSITION resident of [facility] SNF Admission and Anticipated Discharge Date Admission Date: January 05, 2025 Subjective Pt seen in follow up Pt w/ hx of Parkinson's, presents w/ AMS, hypokalemia Has been having loose stools -> now seems resolved, pt states did not have any yesterday Currently sitting up in bed in NAD, more alert and communicative. Reports poor appetite. When asked him what he likes - asked for ice cream - which was brought to him Denies fever, chills, chest pain, shortness of breath, abd.pain, n/v Review of Systems Review of Systems: All systems reviewed & are unremarkable except as noted in Subjective Physical Exam Physical Exam: General- WD/WN slim elderly M in NAD Eyes- anicteric Neck- supple Lungs- clear breath sounds bilaterally, no rales/wheezes Heart- normal rate, regular rhythm; no murmurs Abdomen- normal bowel sounds, nondistended, soft, nontender Extremities- no pretibial edema, no calf tenderness Neuro- wake, alert, pleasantly confused, answers some questions, moves extremities Skin- warm & dry Results & Data Results & Data Vital Signs (Past 12 Hours) Vital Signs Temp Pulse Pulse Resp BP Pulse Ox O2 Del Method 01/09/25 09:42 Room Air 01/09/25 08:15 36.4 C L 70 20 120/74 97 Room Air 01/09/25 05:45 67 01/09/25 05:37 69 118/68 01/09/25 04:09 36.3 C L 68 20 123/77 97 Room Air 01/08/25 23:00 36.2 C L 67 20 123/74 97 Room Air Laboratory Results 01/09/25 Range/Units 06:33 WBC 6.16 (4.8-10.8) K/ul RBC 4.22 L (4.70-6.10) M/uL Hgb 13.1 L (14.0-18.0) g/dl Hct 38.4 L (42.0-52.0) % MCV 91.0 (80.0-100.0) fL MCH 31.0 (25.0-34.0) pg MCHC 34.1 (32.0-36.0) g/dL RDW Std Deviation 42.1 (36.4-46.3) fL RDW Coeff of Maria Isabel 12.8 (11.5-14.5) % Plt Count 207 (130-400) K/uL MPV 9.9 (9.4-12.4) fL Sodium 141 (136-145) mmol/L Potassium 3.3 L (3.5-5.1) mmol/L Chloride 106 (98-107) mmol/L Carbon Dioxide 28 (21-32) mmol/L Anion Gap 7 (3-11) BUN 15 (6-23) mg/dl Creatinine 0.89 (0.6-1.4) mg/dl Est Cr Clr Drug Dosing 65.9 ml/min eGFR 88.26 BUN/Creatinine Ratio 16.9 (10-20) Glucose 112 H (70-99(Fasting)) mg/dl Calcium 8.0 L (8.6-10.3) mg/dl Phosphorus 3.4 D (2.5-4.9) mg/dl Magnesium 1.9 (1.7-2.4) mg/dl Medications Administered Current Inpatient Medications Acetaminophen (Acetaminophen 325 Mg Tab) 650 mg PO Q4H PRN PRN Reason: Pain or Fever Stop: 02/04/25 15:22 Carbidopa/Levodopa (Carbidopa/Levodopa 25/100mg Ext Rel Tab) 1 tab PO HS [facility] Stop: 02/04/25 20:59 Last Admin: 01/08/25 19:51 Dose: 1 tab Carbidopa/Levodopa (Carbidopa/Levodopa 25/100mg Tab) 1 tab PO TID@0800,1200,1600 [facility] Stop: 02/05/25 15:59 Last Admin: 01/09/25 08:04 Dose: 1 tab Clopidogrel Bisulfate (Clopidogrel Bisulfate 75 Mg Tab) 75 mg PO DAILY [facility] Stop: 02/05/25 08:59 Last Admin: 01/09/25 08:03 Dose: 75 mg Cyanocobalamin (Cyanocobalamin (B-12) 500 Mcg Tablet) 1,000 mcg PO QAM [facility] Stop: 02/05/25 08:59 Last Admin: 01/09/25 08:04 Dose: 1,000 mcg Diphenoxylate HCl/Atropine (Diphenoxylate/Atropine 2.5/0.025mg Tab) 1 tab PO QID PRN PRN Reason: Diarrhea Stop: 02/04/25 17:41 Duloxetine HCl (Duloxetine Hcl 20 Mg Cap) 20 mg PO QAM [facility] Stop: 02/05/25 08:59 Last Admin: 01/09/25 08:03 Dose: 20 mg Ergocalciferol (Ergocalciferol 1250 Mcg (50,000 Units) Cap) 1,250 mcg PO Q7D@0900 [facility] Stop: 02/07/25 12:34 Last Admin: 01/08/25 13:46 Dose: 1,250 mcg Finasteride (Finasteride 5 Mg Tab) 5 mg PO QAM [facility] Stop: 02/05/25 08:59 Last Admin: 01/09/25 08:03 Dose: 5 mg Meclizine HCl (Meclizine Hcl 25 Mg Tab) 25 mg PO BID PRN PRN Reason: Dizziness Stop: 02/04/25 17:56 Melatonin (Melatonin 3 Mg Tab) 3 mg PO HS PRN PRN Reason: Sleep Stop: 02/07/25 19:31 Last Admin: 01/08/25 19:51 Dose: 3 mg Midodrine (Midodrine Hcl 2.5 Mg Tab) 5 mg PO TID@0700,1200,1700 [facility] Stop: 02/04/25 17:59 Last Admin: 01/09/25 05:37 Dose: 5 mg Ondansetron HCl (Ondansetron Inj 2 Mg/Ml 2 Ml Vial) 4 mg IV Q6H PRN PRN Reason: Nausea Stop: 02/04/25 15:22 Pantoprazole Sodium (Pantoprazole 40 Mg Tab) 40 mg PO DAILY [facility] Stop: 02/05/25 08:59 Last Admin: 01/09/25 08:04 Dose: 40 mg Potassium Chloride (Potassium Chloride Crtab 20 Meq Tabcr) 40 meq PO NOW STA Stop: 01/09/25 10:25 Pravastatin Sodium (Pravastatin Sod 20 Mg Tab) 20 mg PO QPM [facility] Stop: 02/04/25 20:59 Last Admin: 01/08/25 19:51 Dose: 20 mg Tamsulosin HCl (Tamsulosin Hcl 0.4 Mg Cap) 0.4 mg PO HS [facility] Stop: 02/04/25 20:59 Last Admin: 01/08/25 19:51 Dose: 0.4 mg Vibegron (Vibegron 75 Mg Tab) 75 mg PO DAILY [facility] Stop: 02/05/25 08:59 Last Admin: 01/09/25 08:03 Dose: 75 mg (4) Dementia Dementia behavioral or psychological symptom: unspecified whether behavioral, psychotic, or mood disturbance or anxiety Dementia severity: mild Dementia type: unspecified type Qualified Code(s): F03.A0 - Unspecified dementia, mild, without behavioral disturbance, psychotic disturbance, mood disturbance, and anxiety
[2025-01-09] MEDS: POTASSIUM CHLORIDE CRTAB 20 MEQ TABCR PO STA (11:17)
[2025-01-09] MEDS: DIPHENOXYLATE/ATROPINE 2.5/0.025MG TAB PO PRN (22:28)
[2025-01-09 23:26] VITALS: O2SAT 97
[2025-01-10 06:58] LABS: BUN Creatinine Ratio 15.3 (10-20); Creatinine Clr Calc Pharmacy 58.1 ml/min; Phosphorus 3.2 mg/dl (2.5-4.9); Potassium 3.7 mmol/L (3.5-5.1)
[2025-01-10] MEDS: POTASSIUM CHLORIDE CRTAB 20 MEQ TABCR PO STA (09:48)
[2025-01-10 11:30] VITALS: BP 98/63; PULSE 70; TEMP 98.1
--- NOTE | 2025-01-10 12:29 | Discharge Summary ---
Date of Service January 10, 2025 Admission HPI Per Admitting Provider 75 year old male with history of Parkinson, CVA, B12 deficiency, BPH, HLD presenting with increased confusion and weakness for the past few days. Patient has baseline dementia and is a resident of [facility]. History obtained from: [facility] facility staff, and [facility] records. Patient was started on a long-acting carbidopa levodopa by the neurologist about a month ago. As per staff, patient subsequently developed Persistent diarrhea since the medication change. He has also been noted to have increasing weakness and recurrent falls. Patient reported dizziness with standing during his visit to the PCP. No fever, chills, chest pain, shortness of breath, cough, abdominal pain. Today, patient was observed to be more confused, and weak, hence he was brought to the ER for evaluation. At the ED, patient received with stable vital signs overall. CT head negative for acute process BMP showed a potassium of 2.5 UA showed ketones UA negative for UTI Chest x-ray no pneumonia He was given IV riders and IV NSS at the ER. On exam, patient seen resting in bed, comfortable. Awake, alert, comfortable, pleasantly confused. Just had his dinner. States he feels fine overall. Denies abdominal pain, nausea no chest pain, dyspnea, palpitations, dizziness, headache no focal neuro symptoms Admission Exam Per Admitting Provider General- pleasantly confused, not in distress, speaks in sentences with no effort or accessory muscle use Eyes- anicteric Neck- no JVD Lungs- clear breath sounds bilaterally, no rales/wheezes Heart- normal rate, regular rhythm; no murmurs Abdomen- normal bowel sounds, nondistended, soft, nontender Extremities- no pretibial edema, no calf tenderness Neuro- alert, oriented x 0, pleasantly confused, otherwise no gross focal neurologic deficits Skin- warm & dry Principal Diagnosis Increased confusion, weakness, secondary to dehydration , hypokalemia, from diarrhea Hx of Parkinson's Discharge Exam General- WD/WN slim elderly M in NAD Eyes- anicteric Neck- supple Lungs- clear breath sounds bilaterally, no rales/wheezes Heart- normal rate, regular rhythm; no murmurs Abdomen- normal bowel sounds, nondistended, soft, nontender Extremities- no pretibial edema, no calf tenderness Neuro- awake, alert, answers appropriately, speech fluent, moves extremities Skin- warm & dry Discharge Data Allergies Allergy/AdvReac Type Severity Reaction Status Date / Time No Known Allergies Allergy Verified 07/20/24 10:34 Consultations 01/05/25 13:58 ED Decision to Admit Stat 01/05/25 17:40 Consult Neurology Routine Ordered Studies 01/05/25 11:18 CT head/brain wo con Stat FINDINGS: Brain parenchyma: No acute intracranial hemorrhage, midline shift or mass effect is present. Love-white matter differentiation is preserved. There are no extra-axial fluid collections. There are no findings to suggest acute dural sinus thrombosis or acute territorial infarct. White matter hypodensities are unchanged and favor small vessel disease. An old infarct within the right basal ganglia is unchanged. Ventricles, sulci, cisterns: There is no hydrocephalus. The basal cisterns are patent. Calvarium: Unremarkable. Sinuses and mastoids: The visualized paranasal sinuses are clear. The mastoid air cells are well pneumatized. Orbits: The bony orbits are grossly intact. IMPRESSION: No acute intracranial findings. No change in appearance of the brain . 01/05/25 15:03 MRI Brain [MR brain wo con] Routine FINDINGS: Brain: There is a remote ischemic injury of the right capsule with hemosiderin staining. Moderate nonspecific white matter changes.. No mass. No hemorrhage. No acute infarct. There is a small focus of susceptibility artifact in the right anterior temporal lobe which may represent a tiny cavernoma. Ventricles: Moderate ventriculomegaly. Bones/joints: Unremarkable. No acute fracture. Sinuses: Unremarkable as visualized. No acute sinusitis. Mastoid air cells: Unremarkable as visualized. No mastoid effusion. Orbits: Bilateral lens replacements. IMPRESSION: No evidence of acute intracranial pathology. Hospital Course (1) Confusion: (2) Generalized weakness: (3) Recurrent falls: (4) Dementia: (5) History of CVA (cerebrovascular accident): 75 year old male with history of Parkinson, CVA, B12 deficiency, BPH, HLD presenting with increased confusion and weakness for the past few days. Increased confusion, weakness, recurrent falls likely secondary to Dehydration, Hypokalemia from Diarrhea, secondary to Long Acting Carbidopa/Levodopa? r/o Infectious Source History of Parkinson, Recurrent CVAs at baseline, patient is pleasantly confused as per SNF staff CT head: negative Brain MRI negative UA, CXR: unrevealing stool PCR, C diff: negative IV NSS Orthostatic VS Neurology consulted Recommend continue Sinemet CR QHS Recommend continue only Sinemet 25/100 TID during wakeful hours - medications adjusted as above -checked Vit D, Vit B12 Hypovitaminosis D - started supplement Hypokalemia replace and monitor PT/OT eval monitor closely 01/06 Pt lying in bed, in NAD but drowsy, only answers some questions appropriately 01/07 Pt awake, and alert, sitting up in bed, son present at the bedside 01/08 Sitting up in chair, awake alert, communicative today 01/09 Overall pt seems improved, answers appropriately. reports no loose stools yesterday 01/10 Pt is awake, alert, answers appropriately. Reports no issues drinking water, only one loose stool yesterday. Potassium level much improved and normal now. Contacted CM to discuss PT recommendations - per CM pt ok to return to [facility] Other chronic medical problems: PARKINSON DISEASE - held carbidopa/levodopa/entacapone until Neuro eval -> meds adjusted as above RECURRENT CVAs - continue Plavix, Pravastatin B12 DEFICIENCY- continue Vit B12 deficiency BPH - continue Tamsulosin HLD - continue Pravastatin DEPRESSION - continue Duloxetine Total Time Total Time Spent Total Time Spent (In Minutes): 40 Discharge Plan Discharge Items Patient Disposition: Personal [facility] Living Reason For Visit: INCREASED CONFUSION, WEAKNESS Discharge Diagnosis: Increased confusion, weakness, secondary to dehydration , hypokalemia, from diarrhea Hx of Parkinson's Condition on Discharge: Fair Activity: Per Instructions section Non-emergency contact: Primary Care Provider, Specialist and Neurologist Call non-emergency contact if: you have any medication questions and your symptoms worsen Follow-up/Referrals: Ruth Lucia MD [Primary Care Provider] - Diet: Regular Diet Texture: Easy to Chew Addtl Attending Provider Instructions: Follow up with your primary care physician and neurologist. Make sure to stay well hydrated. Review change in your Parkinsons medications. Take potassium supplement for next few days and discuss this with your primary care doctor. Your vitamin D level was found low, take vit. D supplement as prescribed. Pending Studies at Discharge: No Stand-Alone Forms: My [employer], Smoking Cessation Skilled Items Patient informed of condition?: Yes DNR: No Discharge Level of Care: Other Communicable Disease: No Discharge Prognosis: Stable Lines: None Urinary Catheter: No Medications and DC Order Prescriptions: New ergocalciferol (vitamin D2) 1,250 mcg (50,000 unit) Capsule 1,250 mcg PO Q7D Qty: 7 0RF carbidopa-levodopa [Sinemet] 25-100 mg Tablet 1 tab PO TID@0800,1200,1600 Qty: 90 0RF potassium chloride 10 mEq tablet extended release 10 meq PO DAILY Qty: 7 0RF Continued pravastatin 20 mg tablet 20 mg PO QPM tamsulosin 0.4 mg capsule 0.4 mg PO HS meclizine 25 mg Tablet,Chewable 25 mg PO BID PRN (Reason: Dizziness) carbidopa-levodopa 25-100 mg tablet extended release 1 tab PO HS cyanocobalamin (vitamin B-12) [Vitamin B-12] 1,000 mcg Tablet 1,000 mcg PO QAM loperamide 2 mg capsule 2 mg PO BID PRN (Reason: Diarrhea) midodrine 5 mg tablet 5 mg PO TID diphenoxylate-atropine 2.5-0.025 mg tablet 1 tab PO QID PRN (Reason: Diarrhea) clopidogrel 75 mg tablet 75 mg PO DAILY pantoprazole 40 mg tablet,delayed release (DR/EC) 40 mg PO DAILY finasteride 5 mg tablet 5 mg PO QAM duloxetine 20 mg capsule,delayed release(DR/EC) 20 mg PO QAM mirabegron [Myrbetriq] 25 mg tablet extended release 24 hr 25 mg PO QAM Discontinued [id number] 37.5-150-200 mg tablet 1 tab PO TID Discharge Orders: Discharge Order (Routine); Ordered 01/10/25 Ordered By: Zackary Baldwin Admission Data Admit Date/Time: 01/05/25 14:31 Attending Provider: Zackary Baldwin Admit Provider: Hoang Floyd Primary Care Provider: Ruth Lucia Other Providers: Hoang Floyd; Noemi Salazar; Daniel Lin; Noemi Snow; Marcus Trejo; Syed Marcos; Tone Chavez; Joseph Reddy; Catrina Lozoya; Mark Osborne; Shan Marie; Aye Rios; Jere Palma; Flora Solis; Kerry Wooten; Joseph Sandoval; Erika Waterman Other Interventions: Discharge Summary Assessment (RN) Last Done: 01/10/25 13:31
== END 2025-01-10 15:55 | disposition home or self-care (01) | DRG 641 ==
LOC: ED 10:58 → 2N 14:31 → SUATTDRO 14:31 → 2N 15:07